=== PATIENT | male | born 1960 | race Caucasian/White ===

== ENCOUNTER 2016-05-28 10:16 | Day surgery (SDC) | payer MEDICARE, OTHER ==
[2016-05-24 15:19] VITALS: BMI 20.7
[~2016-05-28 10:16] MED LIST: LIDOCAINE 1% 20 ML VIAL (10MG/ML) FOR IV START INTRADERMA PRN
[2016-05-28 11:22] VITALS: TEMP 97.2
[2016-05-28] MEDS ORDERED: LIDOCAINE 1% 20 ML VIAL (10MG/ML) FOR IV START INTRADERMA ONE (11:33)
[2016-05-28] MEDS: LACTATED RINGERS 1,000 ML IV ONE ×2 (11:33→11:38)
[2016-05-28] MEDS ORDERED: PROPOFOL 10 MG/ML 20 ML VIAL IV ONE (11:40)
--- NOTE | 2016-05-28 12:08 | P.PCN ---
Date of Procedure: 05/28/16 Procedure(s) Performed: Procedure: Esophagogastroduodenoscopy and biopsy. Preoperative diagnosis: Dysphagia and history of esophageal stricture. Postoperative diagnosis: 1. Few white sticky exudates in the esophagus raising the possibility of brennen esophagitis. 2. No obvious stricture or any hesitation to the advancement of the endoscope into the stomach, no esophageal dilation was indicated. 3. Mild antral gastritis. Preparation and sedation: Were provided by anesthesia. Brief clinical history: The patient is a 55-year-old male with history of esophageal strictures that has required dilations in the past, was recently evaluated in the office regarding anemia with drop in hemoglobin and progressive dysphagia. His last colonoscopy was in May 2011. His last upper endoscopy and dilation was in August 2015. Procedure: With the patient on his left lateral decubitus position and after informed consent and adequate sedation, I passed the Olympus-GIF 160 video upper endoscope through the cricopharyngeus down the esophagus. GE junction was around 40-41 cm from the incisors. There was no definite stricture or any restriction to the advancement of the endoscope to the stomach. At times during the examination I noted a very small sliding hiatal hernia. The esophagus had few white sticky exudates raising the possibility of brennen esophagitis, but there were no erosions, ulcers or any evidence of reflux esophagitis. The endoscope was then passed into the stomach which was insufflated with air and inspected in detail including the retroflex view in the cardia. There was some mottling erythema and minimal friability in the antrum and immediate prepyloric area with no ulcers or erosions. Pyloric channel did not show any ulcers. Duodenal bulb, post bulbar area and descending duodenum appeared within normal limits. I obtained biopsies from the antrum as well as from the esophagus before the endoscope was withdrawn. The patient tolerated the procedure well. Plan: The patient was reassured. Will await pathology results. I would consider repeat colonoscopy if he remains anemic especially after we address the findings on this examination today and any additional information obtained from the biopsy taken today. I would keep you updated on his progress.
[2016-05-28 12:09] VITALS: RESP 18
[2016-05-28 12:38] VITALS: BP 105/67; PULSE 91
== END 2016-05-28 13:07 | disposition home or self-care (01) ==
LOC: ORWHC2ENDO 10:16
DX: B37.81 Candidal esophagitis (principal); K21.0 Gastro-esophageal reflux disease with esophagitis; K29.50 Unspecified chronic gastritis without bleeding; K44.9 Diaphragmatic hernia without obstruction or gangrene; I10 Essential (primary) hypertension; I73.9 Peripheral vascular disease, unspecified; F41.9 Anxiety disorder, unspecified; G47.33 Obstructive sleep apnea (adult) (pediatric); I48.91 Unspecified atrial fibrillation; Z86.718 Personal history of other venous thrombosis and embolism; Z79.82 Long term (current) use of aspirin; Z79.899 Other long term (current) drug therapy
CPT/HCPCS: 88305; 88312; 88342; 43239; J2704; 99153

== ENCOUNTER → 2019-05-07 | Outpatient (CLI) | payer MEDICARE, OTHER ==
[2019-05-07 14:08] LABS: HCT 46.4 % (39.0-53.0); HGB 14.9 gm/dL (13.0-17.5); MCH 31.2 pg (25.0-35.0); MCHC 32.1 g/dL (31.0-37.0); MCV 97.1 fL (80.0-100.0); Mean Platelet Volume 8.7; Platelet Count 290 k/uL (150-450); RBC 4.78 m/uL (4.30-5.90); RDW 13.5 % (11.5-15.5); WBC 8.3 k/uL (3.8-10.6)
[2019-05-07 14:22] LABS: African American GFR (CKD) >90 (>60 ml/min/1.73 sqM); Anion Gap 7 mmol/L; Blood Urea Nitrogen 12 mg/dL (9-20); Carbon Dioxide 28 mmol/L (22-30); Chloride 102 mmol/L (98-107); Glucose 69 mg/dL (74-99); Non-African American GFR(CKD) >90 (>60 ml/min/1.73 sqM); Potassium 4.4 mmol/L (3.5-5.1); Sodium 137 mmol/L (137-145)
== END | disposition home or self-care (01) ==
LOC: LABPAT 13:06
PROVIDERS: ATTEND Internal Medicine Interventional Cardiology
DX: Z01.812 Encounter for preprocedural laboratory examination (principal); R94.39 Abnormal result of other cardiovascular function study
CPT/HCPCS: 80051; 82565; 82947; 84520; 85027

== ENCOUNTER 2019-05-15 10:24 | Day surgery (SDC) | payer MEDICARE, OTHER ==
[2019-05-07 11:25] VITALS: BMI 20.7
[~2019-05-15 10:24] MED LIST changes: +ALPRAZolam 0.25 MG TAB PO PRN; +ALPRAZolam 0.5 MG TAB PO PRN; +ASPIRIN 325 MG TAB PO STA; -LIDOCAINE 1% 20 ML VIAL (10MG/ML) FOR IV START INTRADERMA PRN; +NITROGLYCERIN SL TABS 0.4 MG TAB SUBLINGUAL PRN; +SODIUM CHLORIDE 0.9% 1,000 ML in EMPTY BAG 1 BAG IV ONE
[2019-05-15] MEDS ORDERED: MIDAZOLAM 2 MG/2 ML VIAL IV ONE (13:16)
[2019-05-15] MEDS ORDERED: LIDOCAINE 1% INJ 10MG/ML (20 ML MDV) SQ ONE (13:18)
[2019-05-15] MEDS: VERAPAMIL SYRINGE (5 MG/10 ML) INTRAARTER ONE ×2 (13:19→13:44)
[2019-05-15] MEDS ORDERED: HEPARIN SODIUM 1,000 UN/ML (10ML VL) IV ONE (13:20)
[2019-05-15] MEDS ORDERED: BIVALIRUDIN BOLUS 250 MG/50 ML IV ONE ×2 (13:29)
[2019-05-15] MEDS ORDERED: BIVALIRUDIN 250 MG in SODIUM CHLORIDE 0.9% 50 ML IV ONE (13:30)
[2019-05-15] MEDS ORDERED: CLOPIDOGREL 75 MG TAB PO ONE (13:38)
[2019-05-15] MEDS ORDERED: IOPAMIDOL-370 125ML BTL INJ ONE (13:38)
[2019-05-15] MEDS ORDERED: niCARdipine Syringe (1,000 mcg/10 mL) INTRACORON ONE (13:41)
[2019-05-15] MEDS ORDERED: ALBUTEROL NEBULIZED 2.5 MG/3 ML INHALATION PRN (13:46)
[2019-05-15] MEDS ORDERED: IBUPROFEN 800 MG TAB PO PRN (13:46)
[2019-05-15] MEDS ORDERED: RX INFO: IV CONTRAST WAS GIVEN 1 EACH MISC MISCELLANE PRN (13:48)
[2019-05-15] MEDS ORDERED: MAG HYDROX/AL HYDROX/SIMETH 30 ML CUP PO PRN (13:48)
[2019-05-15] MEDS ORDERED: ATROPINE SULFATE 0.1 MG/ML 10ML SYRINGE IV PRN (13:48)
[2019-05-15] MEDS ORDERED: ZOLPIDEM 5 MG TAB PO PRN (13:48)
[2019-05-15] MEDS ORDERED: SODIUM CHLORIDE 0.9% 1,000 ML IV SCH (14:00)
--- NOTE | 2019-05-15 15:14 | AN ---
ANGIOGRAPHY REPORT CORONARY ANGIOGRAM AND PERCUTANEOUS CORONARY INTERVENTION: 05/15/2019 PERFORMING PHYSICIAN: Walker Singleton MD. PROCEDURE PERFORMED: 1. Selective right and left coronary angiogram. 2. Successful stenting of the mid right coronary artery using 4.0 x 15 mm Xience drug- eluting stent which was post dilated using 5 mm balloon with an excellent angiographic results. INDICATION: This is a 58-year-old gentleman with hypertension and dyslipidemia and history of peripheral arterial disease who was experiencing chest discomfort and underwent myocardial perfusion imaging stress test and that revealed inferior ischemia. Because of that, he was brought today to undergo a heart catheterization. APPROACH: Right radial artery. COMPLICATION: None. LEVEL OF SEDATION: Moderate with sedation length of 31 minutes. PROCEDURE DESCRIPTION: After obtaining an informed consent, the patient was brought to the cardiac laborer sawmill. The right radial artery was cannulated using micropuncture technique and a micropuncture wire passed easily, then I placed a 6-Danish sheath in the right radial artery. After that I gave the patient 2 mg of verapamil IA. I did selective right and left coronary angiogram using JR4 and JL3.5 catheters. After that, I did intervene on the right coronary artery. Please see a separate paragraph for that. SELECTIVE CORONARY ANGIOGRAM: 1. The right coronary artery is a large caliber vessel and is a dominant vessel. The mid RCA has a tight lesion appeared to be in the range of 80% to 90%. The RCA distally bifurcates into PDA and PLV branches and both appeared to be angiographically normal. 2. The left main is after the images. The left main did not the images+. The left main is angiographically normal. It bifurcates into left circumflex and left anterior descending artery. 3. The left circumflex is a medium to large caliber vessel, it is a nondominant vessel. The left circumflex has mild disease only. 4. The left anterior descending artery. The proximal LAD appeared to have mild disease only. The mid LAD has a lesion appeared to be in the range of 50% to 60%. The LAD distally appeared to be angiographically normal. 5. PCI of the RCA. Anticoagulation was initiated with Angiomax with bolus and drip. Subsequently I did engage the right coronary artery. The right coronary artery was engaged using JR4 guide. Then I did wire it using a run-through wire. I did direct stenting on the lesion using 4.0.x 15 mm drug-eluting stent, which was Xience, which was deployed under 14 atmospheres for 24 to 20 seconds, then I post-dilated the stent using 5 mm NC balloon. The following angiogram showed good angiographic results and the procedure was completed without any complication. CONCLUSION: 1. Critical disease involving the mid right coronary artery. 2. Intermediate to severe disease involving the mid LAD. 3. Successful stenting of the mid RCA as described above. POSTPROCEDURE MANAGEMENT: 1. Dual anti-platelet therapy. 2. Risk factor modifications. 3. Follow up with the patient. MMODL / IJN: [id number] /
[2019-05-15] MEDS: GABAPENTIN 300 MG CAP PO SCH ×2 (16:15→21:00)
[2019-05-15] MEDS: VARENICLINE 1 MG TAB PO SCH (21:00)
[2019-05-15] MEDS: METOPROLOL TARTRATE 25 MG TAB PO SCH (21:00)
[2019-05-15] MEDS ORDERED: ATORVASTATIN 80 MG TAB PO SCH (21:00)
[2019-05-16 04:02] VITALS: RESP 18; TEMP 98.2
[2019-05-16 07:09] LABS: Basophils % (A) 0 %; Eosinophils # (A) 0.2 k/uL (0-0.7); Eosinophils % (A) 3 %; HCT 46.2 % (39.0-53.0); HGB 14.7 gm/dL (13.0-17.5); Lymphocytes # (A) 1.9 k/uL (1.0-4.8); Lymphocytes % (A) 22 %; MCH 30.5 pg (25.0-35.0); MCHC 31.8 g/dL (31.0-37.0); MCV 95.9 fL (80.0-100.0); Mean Platelet Volume 7.6; Monocytes # (A) 0.7 k/uL (0-1.0); Monocytes % (A) 8 %; Neutrophils # (A) 5.9 k/uL (1.3-7.7); Neutrophils % (A) 66 %; Platelet Count 253 k/uL (150-450); RBC 4.82 m/uL (4.30-5.90); RDW 13.4 % (11.5-15.5); WBC 8.9 k/uL (3.8-10.6)
[2019-05-16 07:24] LABS: African American GFR (CKD) >90 (>60 ml/min/1.73 sqM); Anion Gap 4 mmol/L; Blood Urea Nitrogen 10 mg/dL (9-20); Calcium 9.6 mg/dL (8.4-10.2); Carbon Dioxide 31 mmol/L (22-30); Chloride 105 mmol/L (98-107); Glucose 82 mg/dL (74-99); Non-African American GFR(CKD) >90 (>60 ml/min/1.73 sqM); Potassium 4.4 mmol/L (3.5-5.1); Sodium 140 mmol/L (137-145)
[2019-05-16 07:44] VITALS: BP 106/79; PULSE 90
[2019-05-16] MEDS: VARENICLINE 1 MG TAB PO SCH (07:44)
[2019-05-16] MEDS: GABAPENTIN 300 MG CAP PO SCH (07:45)
[2019-05-16] MEDS: METOPROLOL TARTRATE 25 MG TAB PO SCH (07:45)
[2019-05-16] MEDS ORDERED: MULTIVITAMINS, THERA 1 EACH TAB PO SCH (09:00)
[2019-05-16] MEDS ORDERED: ISOSORBIDE MONONITRATE ER 30 MG TAB.ER.24H PO SCH (09:00)
[2019-05-16] MEDS ORDERED: PANTOPRAZOLE 40 MG TABLET PO SCH (09:00)
[2019-05-16] MEDS ORDERED: CLOPIDOGREL 75 MG TAB PO SCH (09:00)
[2019-05-16] MEDS ORDERED: ASPIRIN 81 MG PO SCH (09:00)
--- NOTE | 2019-05-16 09:11 | DS ---
DISCHARGE SUMMARY ADMISSION DATE: 05/15/2019 DISCHARGE DATE: 05/16/2019. BRIEF HISTORY: This is a 58-year-old gentleman with hypertension and dyslipidemia who was experiencing chest discomfort and he underwent a stress test as an outpatient and that revealed inferior ischemia. Because of that, he underwent a heart catheterization yesterday which revealed critical disease involving the mid RCA which is stented with an excellent angiographic results and without any complication. The patient is going to be on dual anti-platelet therapy as well as statin and I will follow up with him next week in the office. DANIA / CAYETANON: [id number] /
== END 2019-05-16 10:35 | disposition home or self-care (01) ==
LOC: CATHCVL 10:24 → 3SCARD 13:47 → CATHCVL 05-16 10:35
PROVIDERS: ATTEND Internal Medicine Interventional Cardiology
DX: I25.110 Atherosclerotic heart disease of native coronary artery with unstable angina pectoris (principal); I25.9 Chronic ischemic heart disease, unspecified; I10 Essential (primary) hypertension; E78.00 Pure hypercholesterolemia, unspecified; E78.5 Hyperlipidemia, unspecified; I73.9 Peripheral vascular disease, unspecified; F17.210 Nicotine dependence, cigarettes, uncomplicated; Z79.899 Other long term (current) drug therapy; Z79.82 Long term (current) use of aspirin; Z79.1 Long term (current) use of non-steroidal anti-inflammatories (NSAID)
CPT/HCPCS: 93454; 80048; 85025; C9600; C1887; C1725; C1769 ×2; C1874; C1894; J2250; J2001; J0583; Q9967

== ENCOUNTER → 2020-03-04 | Outpatient (CLI) | payer MEDICARE, OTHER ==
--- NOTE | 2020-03-07 11:21 | CT ---
EXAMINATION TYPE: CT chest abdomen w con DATE OF EXAM: 03/04/2020 COMPARISON: CT chest 03/31/2015. HISTORY: Abnormal weight loss. CT DLP: 665 mGycm. Automated Exposure Control for Dose Reduction was Utilized. CONTRAST: CT scan of the thorax, abdomen and pelvis is performed with IV Contrast, patient injected with 100 mL of Isovue 300. FINDINGS: LUNGS: Lungs are hyperinflated. There is severe paraseptal and centrilobular emphysematous change wit h nodular pleural thickening and likely areas of scarring. Emphysematous changes have progressed vers us 2015 comparison. There is no pulmonary mass. No pleural effusion. No pneumothorax. The tracheobron chial tree is patent. MEDIASTINUM/SOFT TISSUES: No axillary, hilar, or mediastinal lymphadenopathy greater than 1 cm. Cardi ac size is normal. No pericardial effusion. Calcified coronary artery disease. No thoracic aortic ane urysm. LIVER: There is a hepatic cyst of the left dome. BILIARY SYSTEM: Normal. PANCREAS: Normal. SPLEEN: Normal. ADRENALS: Normal. KIDNEYS: Normal. BOWEL: No obstruction or thickening of the visualized bowel loops. There is significant colonic debr is within the ascending and transverse colon. PERITONEUM: No pneumoperitoneum. No free fluid. LYMPH NODES: No lymphadenopathy. VASCULATURE: No abdominal aortic aneurysm. Moderate calcified atherosclerotic disease. MUSCULOSKELETAL: No aggressive osseous destructive lesions. Degenerative changes of the cervical and lumbosacral spine. IMPRESSION: 1. Severe emphysema. Nodular pleural thickening and scarring. No definitive lung mass. 2. Significant colonic fecal debris. Correlate clinically for constipation.
== END | disposition home or self-care (01) ==
LOC: RADCTMAIN 15:28
PROVIDERS: ATTEND Family Medicine
DX: J43.9 Emphysema, unspecified (principal); J92.9 Pleural plaque without asbestos; R91.8 Other nonspecific abnormal finding of lung field; R19.5 Other fecal abnormalities
CPT/HCPCS: 71260; 74160; Q9967 ×2

== ENCOUNTER → 2021-04-10 | Outpatient (CLI) | payer MEDICARE, OTHER ==
[2021-04-10 14:09] LABS: African American GFR (CKD) >90 (>60 ml/min/1.73 sqM); Anion Gap 8 mmol/L; Blood Urea Nitrogen 12 mg/dL (9-20); Carbon Dioxide 26 mmol/L (22-30); Chloride 101 mmol/L (98-107); Non-African American GFR(CKD) >90 (>60 ml/min/1.73 sqM); Potassium 4.3 mmol/L (3.5-5.1); Sodium 135 mmol/L (137-145)
[2021-04-10 14:11] LABS: HCT 42.7 % (39.0-53.0); HGB 14.3 gm/dL (13.0-17.5); MCH 32.5 pg (25.0-35.0); MCHC 33.6 g/dL (31.0-37.0); MCV 96.9 fL (80.0-100.0); Mean Platelet Volume 7.4; Platelet Count 277 k/uL (150-450); RDW 14.3 % (11.5-15.5); WBC 7.4 k/uL (3.8-10.6)
== END | disposition home or self-care (01) ==
LOC: LABPAT 12:01
PROVIDERS: ATTEND Internal Medicine Interventional Cardiology
DX: Z01.812 Encounter for preprocedural laboratory examination (principal); R07.9 Chest pain, unspecified
CPT/HCPCS: 36415; 80051; 82565; 84520; 85027

== ENCOUNTER 2021-04-18 10:56 | Day surgery (SDC) | payer MEDICARE, OTHER ==
[2021-04-14 11:41] VITALS: BMI 20.7
[~2021-04-18 10:56] MED LIST changes: +HEPARIN SODIUM,PORCINE 10,000 UNIT in SODIUM CHLORIDE 0.9% 1,000 ML IRRIGATION PRN; +HEPARIN SODIUM,PORCINE 2,500 UNIT in SODIUM CHLORIDE 0.9% 250 ML IRRIGATION PRN; -SODIUM CHLORIDE 0.9% 1,000 ML in EMPTY BAG 1 BAG IV ONE
[2021-04-18] MEDS ORDERED: SODIUM CHLORIDE 0.9% 1,000 ML IV ONE (11:14)
[2021-04-18] MEDS ORDERED: LIDOCAINE 1% INJ 10MG/ML (20 ML MDV) ONE (13:38)
[2021-04-18] MEDS ORDERED: HEPARIN SODIUM 1,000 UN/ML (10ML VL) ONE (13:38)
[2021-04-18] MEDS ORDERED: VERAPAMIL 2.5 MG/ML 2 ML AMP ONE (13:38)
[2021-04-18] MEDS: MIDAZOLAM 2 MG/2 ML VIAL IV ONE ×2 (13:45→14:28)
[2021-04-18] MEDS ORDERED: LIDOCAINE 1% INJ 10MG/ML (20 ML MDV) SQ ONE (13:48)
[2021-04-18] MEDS ORDERED: VERAPAMIL SYRINGE (5 MG/10 ML) INTRAARTER ONE (13:49)
[2021-04-18] MEDS ORDERED: HEPARIN SODIUM 1,000 UN/ML (10ML VL) IV ONE (13:50)
[2021-04-18] MEDS ORDERED: CLOPIDOGREL 75 MG TAB ONE (14:12)
[2021-04-18] MEDS ORDERED: PRASUGREL 10 MG TAB ONE (14:15)
[2021-04-18] MEDS ORDERED: PRASUGREL 10 MG TAB PO ONE (14:18)
[2021-04-18] MEDS ORDERED: NITROGLYCERIN 1000MCG/10ML SYRINGE INTRACORON ONE (14:22)
[2021-04-18] MEDS ORDERED: ALBUTEROL NEBULIZED 2.5 MG/3 ML INHALATION PRN (14:42)
[2021-04-18] MEDS ORDERED: IBUPROFEN 800 MG TAB PO PRN (14:42)
[2021-04-18] MEDS ORDERED: NITROGLYCERIN SL TABS 0.4 MG TAB SUBLINGUAL PRN (14:43)
[2021-04-18] MEDS ORDERED: ZOLPIDEM 5 MG TAB PO PRN (14:43)
[2021-04-18] MEDS ORDERED: ATROPINE SULFATE 0.1 MG/ML 10ML SYRINGE IV PRN (14:43)
[2021-04-18] MEDS ORDERED: MAG HYDROX/AL HYDROX/SIMETH 30 ML CUP PO PRN (14:43)
[2021-04-18] MEDS ORDERED: RX INFO: IV CONTRAST WAS GIVEN 1 EACH MISC MISCELLANE PRN (14:43)
[2021-04-18] MEDS ORDERED: SODIUM CHLORIDE 0.9% 1,000 ML IV SCH (14:45)
[2021-04-18] MEDS ORDERED: IOPAMIDOL-370 125ML BTL INJ ONE (14:45)
--- NOTE | 2021-04-18 15:14 | CC ---
CARDIAC CATHETERIZATION REPORT CARDIAC CATHETERIZATION AND PERCUTANEOUS CORONARY INTERVENTION: DATE OF SERVICE: 04/18/2021 PERFORMING PHYSICIAN: Walker Singleton M.D. PROCEDURES PERFORMED: 1. Selective right and left coronary angiogram. 2. Successful stenting of the mid left anterior descending artery using a 3.5 x 23 and a 3.5 x 12 mm Xience drug-eluting stent with excellent angiographic results and reduction of stenosis from 70% to 0%. INDICATION: This is a 60-year-old gentleman who is known to have CAD with prior stenting of the RCA and intermediate disease involving the LAD. He was experiencing symptoms of chest discomfort and shortness of breath with exertion concerning for angina. Because of that, a heart catheterization was advised. APPROACH: Right radial artery. COMPLICATIONS: None. LEVEL OF SEDATION: Moderate, with sedation length of 50 minutes. PROCEDURE DESCRIPTION: After obtaining informed consent, the patient was brought to the cardiac catheter builder. The right radial artery was cannulated using micropuncture technique. The micropuncture wire passed easily. Then I placed a 6-Croatian sheath in the right radial artery. I gave the patient 2 mg of verapamil IA and 8000 units of heparin IV. Selective right and left coronary angiogram was performed with JR4 and JL3.5 catheters. After that I did intervene on the left anterior descending artery. Please see separate paragraph for that. SELECTIVE CORONARY ANGIOGRAM: 1. The RCA is a large-caliber vessel. It is a dominant vessel. The RCA is stented in the mid portion and the stent is patent. 2. The left main is angiographically normal. It bifurcates into LCX and LAD. 3. The LCX is a large-caliber vessel. It is a nondominant vessel. The LCX is angiographically normal and gives rise to a large OM branch which appeared to be angiographically normal. 4. The LAD is a large-caliber vessel. The proximal LAD is angiographically normal. The mid LAD after the bifurcation of a large diagonal branch has a tight lesion that appeared to be in the range of 70% with 2 tandem lesions and with a calcified lesion. The LAD distally appeared to be angiographically normal. PERCUTANEOUS CORONARY INTERVENTION OF THE LEFT ANTERIOR DESCENDING ARTERY: Anticoagulation was initiated using heparin with continuous ACT monitoring throughout the procedure. After that, I did engage the left main using JL4 guiding catheter. I did wire the LAD using a run-through wire. I did direct stenting on the lesion in the LAD using 3.5 x 23 mm Xience WEI where the stent was positioned under fluoroscopic guidance and deployed under 14 atmospheres for 20 seconds. The following angiogram showed that the lesion on the proximal edge of the stent appeared to be in the range of 50%. Balloon angioplasty was performed using 3.5 and then 4.0 balloon, with no success in opening the lesion. At that point I decided to cover the lesion with a stent, so I did deploy a 3.5 x 12 mm another Xience drug-eluting stent where the stent was positioned under fluoroscopic guidance with about 2 mm overlap between the 2 stents. With that, I did deploy the stent under 14 atmospheres. The following angiogram showed that the lesion continued to be there, and because of that, I did balloon angioplasty again using a 4.0 NC balloon. The final angiogram showed excellent angiographic results and the procedure was completed without any complication. CONCLUSIONS: 1. Patent stent in the mid right coronary artery. 2. Severe disease involving the mid LAD with 2 tandem lesions. 3. Successful stenting of the mid LAD using a 3.5 x 23 and a 3.5 x 12 mm Xience drug- eluting stent with an excellent angiographic result and without any complication with MIRELLA-3 flow. POST-PROCEDURE MANAGEMENT: 1. Dual anti-platelet therapy. 2. Aggressive cholesterol control. 3. Risk factor modifications. 4. Follow up with the patient. DANIA / MARA: [id number] /
[2021-04-18] MEDS: SODIUM CHLORIDE 0.9% 1,000 ML in EMPTY BAG 1 BAG IV SCH ×2 (18:00→20:48)
[2021-04-18] MEDS: GABAPENTIN 300 MG CAP PO SCH ×2 (18:05→20:48)
[2021-04-18] MEDS: METOPROLOL TARTRATE 25 MG TAB PO SCH (20:48)
[2021-04-19 07:13] VITALS: BP 121/77; RESP 16; TEMP 97.9
[2021-04-19] MEDS: GABAPENTIN 300 MG CAP PO SCH (07:14)
[2021-04-19] MEDS: METOPROLOL TARTRATE 25 MG TAB PO SCH (07:14)
[2021-04-19] MEDS ORDERED: PANTOPRAZOLE 40 MG TABLET PO SCH (07:30)
[2021-04-19 07:31] LABS: Basophils % (A) 0 %; Eosinophils # (A) 0.3 k/uL (0-0.7); Eosinophils % (A) 3 %; HCT 48.8 % (39.0-53.0); HGB 15.2 gm/dL (13.0-17.5); Lymphocytes % (A) 20 %; MCH 31.6 pg (25.0-35.0); MCHC 31.2 g/dL (31.0-37.0); MCV 101.1 fL (80.0-100.0); Macrocytosis Slight; Mean Platelet Volume 7.4; Monocytes # (A) 0.9 k/uL (0-1.0); Monocytes % (A) 8 %; Neutrophils # (A) 6.9 k/uL (1.3-7.7); Neutrophils % (A) 67 %; Platelet Count 269 k/uL (150-450); RBC 4.82 m/uL (4.30-5.90); RDW 13.7 % (11.5-15.5); WBC 10.2 k/uL (3.8-10.6)
[2021-04-19 07:48] VITALS: PULSE 68
[2021-04-19] MEDS ORDERED: IPRATROPIUM 0.5 MG/2.5 ML NEBU INHALATION SCH (08:00)
[2021-04-19] MEDS ORDERED: FORMOTEROL FUMARATE 20 MCG/2 ML NEBU INHALATION SCH (08:00)
[2021-04-19 08:45] LABS: African American GFR (CKD) >90 (>60 ml/min/1.73 sqM); Anion Gap 7 mmol/L; Blood Urea Nitrogen 13 mg/dL (9-20); Calcium 9.7 mg/dL (8.4-10.2); Carbon Dioxide 27 mmol/L (22-30); Chloride 105 mmol/L (98-107); Glucose 83 mg/dL (74-99); Non-African American GFR(CKD) 87 (>60 ml/min/1.73 sqM); Potassium 4.4 mmol/L (3.5-5.1); Sodium 139 mmol/L (137-145)
[2021-04-19] MEDS ORDERED: PRASUGREL 10 MG TAB PO SCH (09:00)
[2021-04-19] MEDS ORDERED: ISOSORBIDE MONONITRATE ER 30 MG TAB.ER.24H PO SCH (09:00)
[2021-04-19] MEDS ORDERED: ATORVASTATIN 80 MG TAB PO SCH (09:00)
[2021-04-19] MEDS ORDERED: ASPIRIN 81 MG PO SCH (09:00)
[2021-04-19] MEDS ORDERED: MULTIVITAMINS, THERA 1 EACH TAB PO SCH (09:00)
--- NOTE | 2021-04-19 10:46 | DS ---
DISCHARGE SUMMARY DATE OF ADMISSION: 04/18/2021 DATE OF DISCHARGE: 04/19/2021 BRIEF HISTORY: This is a 60-year-old gentleman with CAD and prior stenting of the RCA who was experiencing symptoms of chest pain and shortness of breath with exertion concerning for angina. He underwent heart catheterization yesterday with successful stenting of the mid LAD. He was seen this morning. He is [id number]. He is hemodynamically stable. The right radial site is soft and nontender with a good pulse. The patient is going to be discharged home on dual anti-platelet therapy along with statin, and I will follow up with the patient in the office in a week. MMEVA / CAYETANON: [id number] /
== END 2021-04-19 09:00 | disposition home or self-care (01) ==
LOC: CATHCVL 10:56 → 6NMEDSUR 14:38 → CATHCVL 04-19 09:00
PROVIDERS: ATTEND Internal Medicine Interventional Cardiology
DX: I25.110 Atherosclerotic heart disease of native coronary artery with unstable angina pectoris (principal); I25.84 Coronary atherosclerosis due to calcified coronary lesion; I10 Essential (primary) hypertension; E78.00 Pure hypercholesterolemia, unspecified; Z20.822 Contact with and (suspected) exposure to COVID-19; Z95.5 Presence of coronary angioplasty implant and graft; E78.5 Hyperlipidemia, unspecified; Z87.891 Personal history of nicotine dependence; Z72.0 Tobacco use; I73.9 Peripheral vascular disease, unspecified; Z79.1 Long term (current) use of non-steroidal anti-inflammatories (NSAID); Z79.82 Long term (current) use of aspirin; Z79.899 Other long term (current) drug therapy
CPT/HCPCS: 94640 ×2; 93454; 80048; 85025; 87635; C9600; C1887; C1894; C1725 ×2; C1769; C1874 ×2; J2250; J2001; J1644; Q9967

== ENCOUNTER 2021-07-08 09:31 | Inpatient (IN) | payer MEDICARE, OTHER ==
[2021-07-08] MEDS ORDERED: IPRATROPIUM-ALBUTEROL 3 ML NEB INHALATION STA (09:49)
[2021-07-08] MEDS ORDERED: methylPREDNISolone SOD SUCCI 125 MG/2 ML VIAL IV STA (09:49)
--- NOTE | 2021-07-08 09:58 | ED ---
SOB HPI - General Chief Complaint: Upper Respiratory Infection Stated Complaint: AIDE Time Seen by Provider: 07/08/21 09:39 Source: patient, RN notes reviewed Mode of arrival: ambulatory Limitations: no limitations - History of Present Illness Initial Comments: This is a pleasant 60-year-old male with a history of COPD, who presents emergency Department with 3 weeks of difficulty breathing and now a sometimes productive cough. He states this is developed over the past 2 days. No known fever however he states he is coughing so hard he is actually getting lightheaded during coughing spells. He denies any chest pain. No known fever. No headache, no fever or chills, no changes in vision or hearing, no sore throat or difficulty with speech, no neck pain, no chest pain no abdominal pain, no nausea or vomiting, no changes in urination or bowel movements, no numbness or tingling, no extremity pain, no skin rashes or lesions. MD Complaint: shortness of breath, cough Onset/Timin -: week(s) - Related Data Home Medications Medication Instructions Recorded Confirmed Albuterol Sulfate [Ventolin HFA] 2 puff INHALATION RT-Q6H PRN 11/13/14 04/18/21 Metoprolol Tartrate 25 mg PO BID 07/27/15 04/18/21 Multivitamin [Men's Multi-Vitamin] 1 tab PO DAILY 08/30/15 04/18/21 Ibuprofen [Motrin] 800 mg PO Q8H PRN 03/19/16 04/14/21 Gabapentin 600 mg PO TID 03/21/16 04/18/21 Aspirin [Adult Low Dose Aspirin EC] 81 mg PO DAILY 05/07/19 04/18/21 Isosorbide Mononitrate [Isosorbide 30 mg PO DAILY 05/15/19 04/18/21 Mononitrate ER] Pantoprazole Sodium 20 mg PO DAILY 04/14/21 04/14/21 Umeclidinium Brm/Vilanterol Tr 1 puff INHALATION DAILY 04/14/21 04/18/21 [Anoro Ellipta 62.5-25 Mcg INH] Atorvastatin [Lipitor] 80 mg PO DAILY 04/18/21 04/18/21 Previous Rx's Medication Instructions Recorded Prasugrel [Effient] 10 mg PO DAILY #90 tablet 04/19/21 Allergies Allergy/AdvReac Type Severity Reaction Status Date / Time No Known Allergies Allergy Verified 07/08/21 09:36 Review of Systems ROS Statement: Those systems with pertinent positive or pertinent negative responses have been documented in the HPI. ROS Other: All systems not noted in ROS Statement are negative. Past Medical History Past Medical History: Atrial Fibrillation, COPD, Deep Vein Thrombosis (DVT), GERD/Reflux, GI Bleed, Hypertension, Osteoarthritis (OA), Pneumonia, Sleep Apnea/CPAP/BIPAP Additional Past Medical History / Comment(s): DVT- LEFT LEG, CPAP History of Any Multi-Drug Resistant Organisms: MRSA Date of last positivie culture/infection: 02/18/20 MRSA MDRO Source:: Right Axilla Past Surgical History: Orthopedic Surgery Additional Past Surgical History / Comment(s): ABD AORTOGRAM. Other SX: HAD CRUSHING INJURY TO ANKLES HAD FUSION DONE JOSE ALBERTO, LT FOOT TOE PARTIAL AMP. CHEST TUBE FOR PNEUMOTHORAX. SURGERY TO REMOVE BLOOD CLOT FROM LEG. Bronchial washings/lavage, EGD. femoral bypass Past Anesthesia/Blood Transfusion Reactions: No Reported Reaction Additional Past Anesthesia/Blood Transfusion Reaction / Comment(s): Pt states he has never received blood. Past Psychological History: Anxiety, Depression Smoking Status: Current every day smoker Past Alcohol Use History: None Reported Past Drug Use History: Marijuana - Past Family History Father Family Medical History: Coronary Artery Disease (CAD), Diabetes Mellitus, Myocardial Infarction (CT), Pulmonary Embolus Additional Family Medical History / Comment(s): PE Mother Family Medical History: CVA/TIA General Exam - General Exam Comments Initial Comments: Patient does not appear to be ill or toxic. Mild increased work of breathing with accessory muscle use. Diffuse wheezing. Does not appear to be toxic. Limitations: no limitations General appearance: alert, in no apparent distress Head exam: Present: atraumatic, normocephalic, normal inspection Eye exam: Present: normal appearance, PERRL, EOMI. Absent: scleral icterus, conjunctival injection, periorbital swelling ENT exam: Present: normal exam, normal oropharynx, mucous membranes moist, TM's normal bilaterally, normal external ear exam. Absent: mucous membranes dry Neck exam: Present: normal inspection. Absent: tenderness, meningismus, lymphadenopathy Respiratory exam: Present: respiratory distress, wheezes, accessory muscle use, decreased breath sounds, prolonged expiratory. Absent: rales, rhonchi, stridor, chest wall tenderness Cardiovascular Exam: Present: regular rate, normal rhythm, normal heart sounds. Absent: systolic murmur, diastolic murmur, rubs, gallop, clicks GI/Abdominal exam: Present: soft, normal bowel sounds. Absent: distended, tenderness, guarding, rebound, rigid Extremities exam: Present: normal inspection, full ROM, normal capillary refill. Absent: tenderness, pedal edema, joint swelling, calf tenderness Back exam: Present: normal inspection Neurological exam: Present: alert, oriented X3, CN II-XII intact Psychiatric exam: Present: normal affect, normal mood Skin exam: Present: warm, dry, intact, normal color. Absent: rash Course Vital Signs 07/08/21 07/08/21 07/08/21 09:33 09:53 11:29 Temperature 97.7 F 98.4 F Pulse Rate 85 94 89 Respiratory 22 20 Rate Blood Pressure 149/94 102/81 O2 Sat by Pulse 100 94 L Oximetry 07/08/21 11:40 Temperature Pulse Rate 87 Respiratory Rate Blood Pressure O2 Sat by Pulse Oximetry - Reevaluation(s) Reevaluation #1: 07/08/21 11:49 Medical record is reviewed Symptoms are not improved after 5 mg of albuterol and 0.5 mg of ipratropium bromide Patient remains in respiratory distress with a respiratory rate of 22. Medical Decision Making - Medical Decision Making Vision presents to symptomology consistent with COPD exacerbation. Certainly COPD with secondary pneumonia is within the differential. Other viral etiology is possible. COVID-19 possible although the patient is vaccinated and boosted. Does not appear to be consistent with congestive heart failure or cardiac ischemia. However we will order a BNP, EKG, and troponin. Case discussed in detail with Dr. Floyd, patient will be admitted to hospitalist for further treatment Ceftriaxone 1 g IV piggyback given here in the ER. Patient received 5 mg of albuterol and 0.5 mg of ipratropium bromide - Lab Data Result diagrams: 07/08/21 10:20 07/08/21 10:20 Lab Results 07/08/21 07/08/21 07/08/21 Range/Units 10:15 10:20 10:20 WBC 6.4 (3.8-10.6) k/uL RBC 4.28 L (4.30-5.90) m/uL Hgb 14.2 (13.0-17.5) gm/dL Hct 43.0 (39.0-53.0) % MCV 100.4 H (80.0-100.0) fL MCH 33.1 (25.0-35.0) pg MCHC 33.0 (31.0-37.0) g/dL RDW 13.6 (11.5-15.5) % Plt Count 204 (150-450) k/uL MPV 7.2 Neutrophils % 72 % Lymphocytes % 13 % Monocytes % 10 % Eosinophils % 1 % Basophils % 1 % Neutrophils # 4.6 (1.3-7.7) k/uL Lymphocytes # 0.8 L (1.0-4.8) k/uL Monocytes # 0.6 (0-1.0) k/uL Eosinophils # 0.1 (0-0.7) k/uL Basophils # 0.1 (0-0.2) k/uL Sodium 126 L (137-145) mmol/L Potassium 4.1 (3.5-5.1) mmol/L Chloride 96 L (98-107) mmol/L Carbon Dioxide 23 (22-30) mmol/L Anion Gap 7 mmol/L BUN 4 L (9-20) mg/dL Creatinine 0.65 L (0.66-1.25) mg/dL Est GFR (CKD-EPI)AfAm >90 (>60 ml/min/1.73 sqM) Est GFR (CKD-EPI)NonAf >90 (>60 ml/min/1.73 sqM) Glucose 109 H (74-99) mg/dL Plasma Lactic Acid Ned (0.7-2.0) mmol/L Calcium 8.7 (8.4-10.2) mg/dL Magnesium 1.8 (1.6-2.3) mg/dL Total Bilirubin 0.7 (0.2-1.3) mg/dL AST 41 (17-59) U/L ALT 28 (4-49) U/L Alkaline Phosphatase 90 (38-126) U/L Troponin I (0.000-0.034) ng/mL NT-Pro-B Natriuret Pep pg/mL Total Protein 7.2 (6.3-8.2) g/dL Albumin 4.1 (3.5-5.0) g/dL Coronavirus (PCR) Not Detected (Not Detectd) 07/08/21 07/08/21 07/08/21 Range/Units 10:20 10:20 10:20 WBC (3.8-10.6) k/uL RBC (4.30-5.90) m/uL Hgb (13.0-17.5) gm/dL Hct (39.0-53.0) % MCV (80.0-100.0) fL MCH (25.0-35.0) pg MCHC (31.0-37.0) g/dL RDW (11.5-15.5) % Plt Count (150-450) k/uL MPV Neutrophils % % Lymphocytes % % Monocytes % % Eosinophils % % Basophils % % Neutrophils # (1.3-7.7) k/uL Lymphocytes # (1.0-4.8) k/uL Monocytes # (0-1.0) k/uL Eosinophils # (0-0.7) k/uL Basophils # (0-0.2) k/uL Sodium (137-145) mmol/L Potassium (3.5-5.1) mmol/L Chloride (98-107) mmol/L Carbon Dioxide (22-30) mmol/L Anion Gap mmol/L BUN (9-20) mg/dL Creatinine (0.66-1.25) mg/dL Est GFR (CKD-EPI)AfAm (>60 ml/min/1.73 sqM) Est GFR (CKD-EPI)NonAf (>60 ml/min/1.73 sqM) Glucose (74-99) mg/dL Plasma Lactic Acid Ned 1.0 (0.7-2.0) mmol/L Calcium (8.4-10.2) mg/dL Magnesium (1.6-2.3) mg/dL Total Bilirubin (0.2-1.3) mg/dL AST (17-59) U/L ALT (4-49) U/L Alkaline Phosphatase (38-126) U/L Troponin I <0.012 (0.000-0.034) ng/mL NT-Pro-B Natriuret Pep 82 pg/mL Total Protein (6.3-8.2) g/dL Albumin (3.5-5.0) g/dL Coronavirus (PCR) (Not Detectd) - EKG Data EKG shows normal: sinus rhythm (384), axis (Normal axis), intervals (Normal intervals), QRS complexes (Normal), ST-T waves (No acute changes) Rate: normal Disposition Clinical Impression: COPD with exacerbation, Hyponatremia Disposition: ADMITTED IP TO THIS HOSP Condition: Fair Referrals: Ashlyn Toro MD [Primary Care Provider] - 1-2 days Time of Disposition: 12:27
[2021-07-08 10:47] LABS: Basophils # (A) 0.1 k/uL (0-0.2); Basophils % (A) 1 %; Eosinophils # (A) 0.1 k/uL (0-0.7); Eosinophils % (A) 1 %; HGB 14.2 gm/dL (13.0-17.5); Lymphocytes # (A) 0.8 k/uL (1.0-4.8); Lymphocytes % (A) 13 %; MCH 33.1 pg (25.0-35.0); MCV 100.4 fL (80.0-100.0); Mean Platelet Volume 7.2; Monocytes # (A) 0.6 k/uL (0-1.0); Monocytes % (A) 10 %; Neutrophils # (A) 4.6 k/uL (1.3-7.7); Neutrophils % (A) 72 %; Platelet Count 204 k/uL (150-450); RBC 4.28 m/uL (4.30-5.90); RDW 13.6 % (11.5-15.5); WBC 6.4 k/uL (3.8-10.6)
[2021-07-08 11:03] LABS: ALT 28 U/L (4-49); African American GFR (CKD) >90 (>60 ml/min/1.73 sqM); Albumin 4.1 g/dL (3.5-5.0); Anion Gap 7 mmol/L; Blood Urea Nitrogen 4 mg/dL (9-20); Calcium 8.7 mg/dL (8.4-10.2); Carbon Dioxide 23 mmol/L (22-30); Chloride 96 mmol/L (98-107); Glucose 109 mg/dL (74-99); Non-African American GFR(CKD) >90 (>60 ml/min/1.73 sqM); Sodium 126 mmol/L (137-145); Total Bilirubin 0.7 mg/dL (0.2-1.3); Total Protein 7.2 g/dL (6.3-8.2)
[2021-07-08 11:09] LABS: Magnesium 1.8 mg/dL (1.6-2.3); Potassium 4.1 mmol/L (3.5-5.1)
[2021-07-08 11:10] LABS: AST 41 U/L (17-59); Alkaline Phosphatase 90 U/L (38-126)
--- NOTE | 2021-07-08 11:18 | XR ---
EXAMINATION TYPE: XR chest 2V DATE OF EXAM: 07/08/2021 COMPARISON: Chest x-ray 06/30/2015, 05/25/2019 HISTORY: Cough and shortness of breath TECHNIQUE: Frontal and lateral views of the chest are obtained on 3 images. FINDINGS: Endotracheal tube and NG tube, right jugular central venous catheter have been removed in the interval. Prominent lung volumes suggest underlying COPD, there is flattening the hemidiaphragms and increased AP diameter chest, retrosternal airspace. No definite pneumothorax or sizable effusion. There are overlying artifacts. Aorta is dense. Patient is rotated. IMPRESSION: Emphysema.
[2021-07-08] MEDS ORDERED: ALBUTEROL NEBULIZED 2.5 MG/3 ML INHALATION STA (11:20)
[2021-07-08] MEDS ORDERED: MAGNESIUM SULFATE-D5W PMX 1 GM in DEXTROSE/WATER 1 100ML.BAG IVPB ONE ×2 (12:01→14:00)
[2021-07-08] MEDS: SODIUM CHLORIDE 0.9% 1,000 ML IV SCH ×2 (12:15→21:12)
[2021-07-08] MEDS ORDERED: ONDANSETRON 4 MG/2 ML VIAL IVP PRN (12:20)
[2021-07-08] MEDS ORDERED: NALOXONE 0.4 MG/ML 1 ML VIAL IV PRN (12:20)
[2021-07-08] MEDS ORDERED: ALBUTEROL NEBULIZED 1.25 MG/3 ML INHALATION PRN (12:25)
--- NOTE | 2021-07-08 13:37 | P.HPIM ---
History of Present Illness H&P Date: 07/08/21 Chief Complaint: Shortness of breath Patient is a 60-year-old male with a known history of COPD, paroxysmal atrial fibrillation, coronary disease with history of stent placement, history of GI bleed, osteoarthritis and obstructive sleep apnea, anxiety/depression currently everyday smoker presents to ER with worsening shortness of breath for the past 3 weeks. Patient also complaining of cough with sometimes yellowish sputum production. He denies any complaints of fever or chills. Patient was seen by his primary care physician and was given 5-day course of steroids and antibiotics which he completed about 3 weeks ago. His symptoms did not improve much and has been worsening during the last couple of days which made him to come to ER. Denies any complaints of chest pain. No leg swelling. No nausea vomiting abdominal pain or diarrhea. Denies any dysuria or hematuria. Chest x-ray on admission showed emphysematous changes. EKG showed sinus rhythm. Laboratory showed WBC 6.4 hemoglobin 14.2 MCV 100.4 and platelets 204 Sodium 126 potassium 4.1 chloride 96 bicarb is 23 BUN 14 creatinine 0.65 Liver enzymes are not elevated proBNP 82 and troponin less than 0.012 and albumin 4.1 Review of Systems Constitutional: Patient denies any fever or chills . No generalized weakness or weight loss. Abdomen: Patient denied nausea vomiting and diarrhea and abdominal pain. Cardiovascular: Patient denies any chest pain or short of breath no palpitations. Respiratory: Patient does have cough with sputum production a lowish. Shortness of breath. Neurologic: Patient denied any numbness or tingling headache. Musculoskeletal: Patient denies any complaints of joint swelling or deformity. Skin: Negative Psychiatric: Negative Endocrine: No heat or cold intolerance. No recent weight gain. Genitourinary: No dysuria or hematuria. All other 14 point ROS negative except the above Past Medical History Past Medical History: Atrial Fibrillation, COPD, Deep Vein Thrombosis (DVT), GERD/Reflux, GI Bleed, Hypertension, Osteoarthritis (OA), Pneumonia, Sleep Apnea/CPAP/BIPAP Additional Past Medical History / Comment(s): DVT- LEFT LEG, CPAP History of Any Multi-Drug Resistant Organisms: MRSA Date of last positivie culture/infection: 02/18/20 MRSA MDRO Source:: Right Axilla Past Surgical History: Heart Catheterization With Stent, Orthopedic Surgery Additional Past Surgical History / Comment(s): ABD AORTOGRAM. Other SX: HAD CRUSHING INJURY TO ANKLES HAD FUSION DONE JOSE ALBERTO, LT FOOT TOE PARTIAL AMP. CHEST TUBE FOR PNEUMOTHORAX. SURGERY TO REMOVE BLOOD CLOT FROM LEG. Bronchial washings/lavage, EGD. femoral bypass Past Anesthesia/Blood Transfusion Reactions: No Reported Reaction Additional Past Anesthesia/Blood Transfusion Reaction / Comment(s): Pt states he has never received blood. Date of Last Stent Placement:: 04/2021 Past Psychological History: Anxiety, Depression Smoking Status: Current every day smoker Past Alcohol Use History: None Reported Additional Past Alcohol Use History / Comment(s): PAST HX OF ALCHOHOL ABUSE,QUIT JUN 2015. STARTED SMOKING AT AGE 15. States he currently smokes less than 1/2 ppd Past Drug Use History: None Reported - Past Family History Father Family Medical History: Coronary Artery Disease (CAD), Diabetes Mellitus, Myocardial Infarction ([place]), Pulmonary Embolus Additional Family Medical History / Comment(s): PE Mother Family Medical History: CVA/TIA Medications and Allergies Home Medications Medication Instructions Recorded Confirmed Type Albuterol Sulfate [Ventolin HFA] 2 puff INHALATION RT-Q6H PRN 11/13/14 07/08/21 History Metoprolol Tartrate 25 mg PO DAILY 07/27/15 07/08/21 History Multivitamin [Men's Multi-Vitamin] 1 tab PO DAILY 08/30/15 07/08/21 History Gabapentin 600 mg PO TID 03/21/16 07/08/21 History Aspirin [Adult Low Dose Aspirin EC] 81 mg PO DAILY 05/07/19 07/08/21 History Pantoprazole Sodium 20 mg PO DAILY 04/14/21 07/08/21 History Umeclidinium Brm/Vilanterol Tr 1 puff INHALATION RT-DAILY 04/14/21 07/08/21 History [Anoro Ellipta 62.5-25 Mcg INH] Atorvastatin [Lipitor] 80 mg PO DAILY 04/18/21 07/08/21 History Prasugrel [Effient] 10 mg PO DAILY #90 tablet 04/19/21 07/08/21 Rx Acetaminophen Tab [Tylenol Tab] 500 mg PO Q6H PRN 07/08/21 07/08/21 History Budesonide/Formoterol Fumarate 2 puff INHALATION RT-BID 07/08/21 07/08/21 History [Symbicort 160-4.5 Mcg Inhaler] Loratadine 10 mg PO DAILY 07/08/21 07/08/21 History Allergies Allergy/AdvReac Type Severity Reaction Status Date / Time No Known Allergies Allergy Verified 07/08/21 13:10 Physical Exam Vitals: Vital Signs Temp Pulse Pulse Resp BP BP Pulse Ox 07/08/21 13:27 98.4 F 73 22 117/77 96 07/08/21 13:11 98.4 F 87 20 102/81 94 L 07/08/21 11:40 87 07/08/21 11:29 89 07/08/21 09:53 98.4 F 94 20 102/81 94 L 07/08/21 09:33 97.7 F 85 22 149/94 100 Intake and Output 07/07/21 07/08/21 07/08/21 22:59 06:59 14:59 Other: Weight 51.5 kg PHYSICAL EXAMINATION: Patient is lying in the bed comfortably, no acute distress, awake alert and oriented.. HEENT: Normocephalic. Neck is supple. Pupils reactive. Nostrils clear. Oral cavity is moist. Neck reveals no JVD, carotid bruits, or thyromegaly. CHEST EXAMINATION: Trachea is central. Symmetrical expansion. Bilateral diffuse wheezing and rhonchi.. CARDIAC: Normal S1, S2 with no gallops. No murmurs ABDOMEN: Soft. Bowel sounds normal. No organomegaly. No abdominal bruits. Extremities: reveal no edema. No clubbing or cyanosis Neurologically awake, alert, oriented x3 with well-coordinated movements. No focal deficits noted Skin: No rash or skin lesions. Psychiatric: Coperative. Nonsuicidal Musculoskeletal: No joint swelling or deformity. Normal range of motion. Results CBC & Chem 7: 07/08/21 10:20 07/08/21 10:20 Labs: Abnormal Lab Results - Last 24 Hours (Table) 07/08/21 07/08/21 Range/Units 10:20 10:20 RBC 4.28 L (4.30-5.90) m/uL MCV 100.4 H (80.0-100.0) fL Lymphocytes # 0.8 L (1.0-4.8) k/uL Sodium 126 L (137-145) mmol/L Chloride 96 L (98-107) mmol/L BUN 4 L (9-20) mg/dL Creatinine 0.65 L (0.66-1.25) mg/dL Glucose 109 H (74-99) mg/dL Thrombosis Risk Factor Assmnt - DVT/VTE Prophylaxis DVT/VTE Prophylaxis: Pharmacologic Prophylaxis ordered - Choose All That Apply Any of the Below Risk Factors Present?: Yes Each Factor Represents 1 point: Abnormal pulmonary function (COPD), Serious lung disease incl. pneumonia (< 1month) Other Risk Factors: Yes Each Risk Factor Represents 2 Points: Age 61-74 years Other congenital or acquired thrombophilia - If yes, enter type in comment: No Thrombosis Risk Factor Assessment Total Risk Factor Score: 4 Thrombosis Risk Factor Assessment Level: Moderate Risk Assessment and Plan Assessment: Acute COPD exacerbation. Failed outpatient failed outpatient treatment. Purulent acute tracheobronchitis Ongoing nicotine addiction Hypovolemic hyponatremia Coronary disease history of stent placement Paroxysmal atrial fibrillation not on any full anticoagulation History of GI bleed GERD Osteoarthritis Hypertension Type II sleep apnea on CPAP at home History of left lower extremity DVT Anxiety/depression DVT prophylaxis with heparin subcu Plan: Patient will be continued IV steroids and duo nebs and Symbicort. Gentle IV hydration with normal saline at 75 cc/h and follow-up sodium level. Continue with antibiotics and sputum cultures will be sent. Pulmonary will be consulted. Continue with home medications and follow closely. Time with Patient: Greater than 30
[2021-07-08] MEDS: PANTOPRAZOLE 40 MG/10 ML VIAL IV SCH (13:55)
[2021-07-08] MEDS: ACETAMINOPHEN TAB 325 MG TAB PO PRN (13:57)
[2021-07-08] MEDS ORDERED: PANTOPRAZOLE SODIUM 20 MG PO SCH (15:15)
[2021-07-08] MEDS: IPRATROPIUM-ALBUTEROL 3 ML NEB INHALATION SCH ×3 (15:26→23:58)
[2021-07-08] MEDS: METOPROLOL TARTRATE 25 MG TAB PO SCH (15:46)
[2021-07-08] MEDS: GABAPENTIN 300 MG CAP PO SCH ×2 (15:46→21:12)
[2021-07-08] MEDS: PRASUGREL 10 MG TAB PO SCH (15:47)
[2021-07-08 17:18] LABS: Glucose,Whole Blood 176 mg/dL (75-99)
[2021-07-08] MEDS: methylPREDNISolone SOD SUCCI 125 MG/2 ML VIAL IV SCH (17:48)
[2021-07-08] MEDS: SYMBICORT 160-4.5 MCG INHALER INHALATION SCH (20:05)
[2021-07-08 20:37] LABS: Glucose,Whole Blood 160 mg/dL (75-99)
[2021-07-08] MEDS: HEPARIN SODIUM,PORCINE/PF 5,000 UNIT/0.5 ML SYRINGE SQ SCH (21:12)
[2021-07-09] MEDS: methylPREDNISolone SOD SUCCI 125 MG/2 ML VIAL IV SCH ×5 (00:37→23:15)
[2021-07-09 03:11] LABS: Glucose,Whole Blood 141 mg/dL (75-99)
[2021-07-09] MEDS: IPRATROPIUM-ALBUTEROL 3 ML NEB INHALATION SCH ×6 (04:11→23:59)
[2021-07-09 07:18] LABS: Glucose,Whole Blood 134 mg/dL (75-99)
[2021-07-09] MEDS: SYMBICORT 160-4.5 MCG INHALER INHALATION SCH ×2 (07:57→19:52)
[2021-07-09] MEDS: HEPARIN SODIUM,PORCINE/PF 5,000 UNIT/0.5 ML SYRINGE SQ SCH ×2 (08:49→21:10)
[2021-07-09] MEDS: METOPROLOL TARTRATE 25 MG TAB PO SCH (08:49)
[2021-07-09] MEDS: PANTOPRAZOLE 40 MG/10 ML VIAL IV SCH (08:49)
[2021-07-09] MEDS: ATORVASTATIN 80 MG TAB PO SCH (08:49)
[2021-07-09] MEDS: GABAPENTIN 300 MG CAP PO SCH ×3 (08:49→21:10)
[2021-07-09] MEDS: ASPIRIN 81 MG PO SCH (08:50)
[2021-07-09] MEDS: PRASUGREL 10 MG TAB PO SCH (08:50)
[2021-07-09] MEDS: SODIUM CHLORIDE 0.9% 1,000 ML IV SCH (08:54)
[2021-07-09 09:09] LABS: Basophils # (A) 0 X 10*3/uL (0.00-0.10); Basophils % (A) 0 %; Eosinophils # (A) 0 X 10*3/uL (0.04-0.35); Eosinophils % (A) 0 %; HCT 42.8 % (39.6-50.0); HGB 13.7 g/dL (13.0-17.0); Immature Grans, Automated 0.2 %; Lymphocytes # (A) 0.62 X 10*3/uL (0.90-5.00); Lymphocytes % (A) 9.8 %; MCH 31.1 pg (27.0-32.0); MCV 97.3 fL (80.0-97.0); Mean Platelet Volume 9.8 fL (9.5-12.2); Monocytes % (A) 4.8 %; NRBC Per 100 WBC 0 /100 WBCS (0.0-0.0); Neutrophils # (A) 5.38 X 10*3/uL (1.80-7.70); Neutrophils % (A) 85.2 %; Platelet Count 222 X 10*3/uL (140-440); RDW 14.8 % (11.5-14.5); WBC 6.31 X 10*3/uL (4.50-10.00)
[2021-07-09 09:15] LABS: Anion Gap 9.8 mmol/L (10.00-18.00); BUN/Creat Ratio 12.14 Ratio (12.00-20.00); Blood Urea Nitrogen 8.5 mg/dL (9.0-27.0); Calcium 9.2 mg/dL (8.7-10.3); Carbon Dioxide 26.2 mmol/L (20.0-27.5); Non-African American GFR(CKD) 101.9 (60.0-200.0); Potassium 4.6 mmol/L (3.5-5.5)
[2021-07-09] MEDS: guaiFENesin SYRUP 100MG/5ML 200 MG/10 ML CUP PO PRN ×2 (09:34→20:03)
[2021-07-09 12:38] LABS: Glucose,Whole Blood 108 mg/dL (75-99)
--- NOTE | 2021-07-09 13:28 | P.CNPUL ---
History of Present Illness Consult date: 07/09/21 Reason for consult: dyspnea History of present illness: 60-year-old male patient with known history of COPD maintained on Anoro Ellipta on outpatient bases addition to albuterol as needed. The patient is known to have CAD and the patient has undergone stenting 2 in the LAD and has a previously stented RCA. He has had history of atrial fibrillation, obstructive sleep apnea maintained on CPAP therapy and previous history of GI bleeding. He also has a previous history of a DVT of the lower extremity. The patient was having significant dyspnea, chest that is no wheezing. He was treated with a course of prednisone burst taper on outpatient basis through his primary care physician and he did not improve and for that reason he ended up coming into the hospital. His EKG was normal. His chest x-ray showed emphysema without any acute abnormalities. Renal function stable with a creatinine of 0.6 and a BUN of 14. LFTs were normal. Troponin was at 0.012. For that reason, the patient was started on Rocephin, bronchodilators with DuoNeb, IV Solu-Medrol and the patient was hospitalized. He is feeling better she is currently on room air oxygen. No angina. No palpitations. No swelling lower extremity. No Pain or tenderness. No pleurisy. Review of Systems Constitutional: Patient denies any fever or chills . No generalized weakness or weight loss. Abdomen: Patient denied nausea vomiting and diarrhea and abdominal pain. Cardiovascular: Patient denies any chest pain or short of breath no pal pitations. Respiratory: Patient does have cough with sputum production a lowish. Shortness of breath. Neurologic: Patient denied any numbness or tingling headache. Musculoskeletal: Patient denies any complaints of joint swelling or deformity. Skin: Negative Psychiatric: Negative Endocrine: No heat or cold intolerance. No recent weight gain. Genitourinary: No dysuria or hematuria. All other 14 point ROS negative except the above Past Medical History Past Medical History: Atrial Fibrillation, Coronary Artery Disease (CAD) (stent in the LAD x2 in 04/2021), COPD, Deep Vein Thrombosis (DVT), GERD/Reflux, GI Bleed, Hypertension, Osteoarthritis (OA), Pneumonia, Sleep Apnea/CPAP/BIPAP Additional Past Medical History / Comment(s): DVT- LEFT LEG, CPAP History of Any Multi-Drug Resistant Organisms: MRSA Date of last positivie culture/infection: 02/18/20 MRSA MDRO Source:: Right Axilla Past Surgical History: Heart Catheterization With Stent, Orthopedic Surgery Additional Past Surgical History / Comment(s): ABD AORTOGRAM. Other SX: HAD CRUSHING INJURY TO ANKLES HAD FUSION DONE JOSE ALBERTO, LT FOOT TOE PARTIAL AMP. CHEST TUBE FOR PNEUMOTHORAX. SURGERY TO REMOVE BLOOD CLOT FROM LEG. Bronchial washings/lavage, EGD. femoral bypass Past Anesthesia/Blood Transfusion Reactions: No Reported Reaction Additional Past Anesthesia/Blood Transfusion Reaction / Comment(s): Pt states he has never received blood. Date of Last Stent Placement:: 04/2021 Past Psychological History: Anxiety, Depression Smoking Status: Current every day smoker Past Alcohol Use History: None Reported Additional Past Alcohol Use History / Comment(s): PAST HX OF ALCHOHOL ABUSE,QUIT JUN 2015. STARTED SMOKING AT AGE 15. States he currently smokes less than 1/2 ppd Past Drug Use History: None Reported - Past Family History Father Family Medical History: Coronary Artery Disease (CAD), Diabetes Mellitus, Myocardial Infarction ([place]), Pulmonary Embolus Additional Family Medical History / Comment(s): PE Mother Family Medical History: CVA/TIA Medications and Allergies Home Medications Medication Instructions Recorded Confirmed Type Albuterol Sulfate [Ventolin HFA] 2 puff INHALATION RT-Q6H PRN 11/13/14 07/08/21 History Metoprolol Tartrate 25 mg PO DAILY 07/27/15 07/08/21 History Multivitamin [Men's Multi-Vitamin] 1 tab PO DAILY 08/30/15 07/08/21 History Gabapentin 600 mg PO TID 03/21/16 07/08/21 History Aspirin [Adult Low Dose Aspirin EC] 81 mg PO DAILY 05/07/19 07/08/21 History Pantoprazole Sodium 20 mg PO DAILY 04/14/21 07/08/21 History Umeclidinium Brm/Vilanterol Tr 1 puff INHALATION RT-DAILY 04/14/21 07/08/21 History [Anoro Ellipta 62.5-25 Mcg INH] Atorvastatin [Lipitor] 80 mg PO DAILY 04/18/21 07/08/21 History Prasugrel [Effient] 10 mg PO DAILY #90 tablet 04/19/21 07/08/21 Rx Acetaminophen Tab [Tylenol Tab] 500 mg PO Q6H PRN 07/08/21 07/08/21 History Budesonide/Formoterol Fumarate 2 puff INHALATION RT-BID 07/08/21 07/08/21 History [Symbicort 160-4.5 Mcg Inhaler] Loratadine 10 mg PO DAILY 07/08/21 07/08/21 History Allergies Allergy/AdvReac Type Severity Reaction Status Date / Time No Known Allergies Allergy Verified 07/08/21 13:10 Physical Exam Vitals: Vital Signs Temp Pulse Pulse Resp BP BP Pulse Ox 07/09/21 12:33 98.2 F 83 26 H 103/68 96 07/09/21 11:22 89 07/09/21 11:10 87 07/09/21 08:10 103 H 07/09/21 07:57 114 H 97 07/09/21 05:00 97.8 F 86 18 111/75 97 07/09/21 00:05 82 07/08/21 23:59 81 07/08/21 21:00 98.2 F 81 18 108/63 97 07/08/21 20:20 82 07/08/21 20:07 78 07/08/21 20:00 18 07/08/21 15:37 86 07/08/21 15:26 84 07/08/21 13:27 98.4 F 73 22 117/77 96 07/08/21 13:11 98.4 F 87 20 102/81 94 L Intake and Output 07/08/21 07/09/21 07/09/21 22:59 06:59 14:59 Intake Total 450 400 Output Total 2000 Balance 450 -1600 Intake: Intake, IV Titration 450 Amount Sodium Chloride 0.9% 1, 450 000 ml @ 75 mls/hr IV . [id number] [facility] Rx#:[id number] Oral 400 Output: Urine 2000 Other: Voiding Method Toilet Toilet # Voids 2 Patient is lying in the bed comfortably, no acute distress, awake alert and oriented.. HEENT: Normocephalic. Neck is supple. Pupils reactive. Nostrils clear. Oral cavity is moist. Neck reveals no JVD, carotid bruits, or thyromegaly. CHEST EXAMINATION: Trachea is central. Symmetrical expansion. Bilateral diffuse wheezing and rhonchi.. CARDIAC: Normal S1, S2 with no gallops. No murmurs ABDOMEN: Soft. Bowel sounds normal. No organomegaly. No abdominal bruits. Extremities: reveal no edema. No clubbing or cyanosis Neurologically awake, alert, oriented x3 with well-coordinated movements. No focal deficits noted Skin: No rash or skin lesions. Psychiatric: Coperative. Nonsuicidal Musculoskeletal: No joint swelling or deformity. Normal range of motion. Results - Laboratory Findings CBC and BMP: 07/09/21 06:22 07/09/21 06:22 Abnormal lab findings: Abnormal Labs 07/08/21 07/08/21 07/08/21 10:20 10:20 17:15 RBC 4.28 L MCV 100.4 H RDW Lymphocytes # 0.8 L Eosinophils # Sodium 126 L Chloride 96 L Anion Gap BUN 4 L Creatinine 0.65 L Glucose 109 H POC Glucose (mg/dL) 176 H 07/08/21 07/09/21 07/09/21 20:28 03:06 06:22 RBC MCV 97.3 H RDW 14.8 H Lymphocytes # 0.62 L Eosinophils # 0 L Sodium Chloride Anion Gap BUN Creatinine Glucose POC Glucose (mg/dL) 160 H 141 H 07/09/21 07/09/21 07/09/21 06:22 07:16 12:37 RBC MCV RDW Lymphocytes # Eosinophils # Sodium Chloride Anion Gap 9.80 L BUN 8.5 L Creatinine Glucose 134 H POC Glucose (mg/dL) 134 H 108 H - Diagnostic Findings Chest x-ray: image reviewed Assessment and Plan Plan: 1 acute COPD exacerbation, failed outpatient treatment and the patient is hospitalized for an acute COPD exacerbation with increased dyspnea cough chest tightness and wheezing. Chest x-ray history of any acute pulmonary infiltrates. The patient has been vaccinated COVID 19 and his screening tests came back negative 2 dyspnea secondary to above 3 coronary artery disease with previous stenting of the LAD 2 and RCA and currently is free of any chest pain 4 chronic atrial fibrillation 5 remote history of DVT 6 history of GI bleed 7 smoker 8 peripheral vascular disease 9 history of alcoholism 10 history of pneumothorax Plan Agree with the current treatment. Continue bronchodilators and antibiotics. Chest x-ray was reviewed. Presentation is typical of an acute COPD exacerbation. Smoking cessation counseling was done. May need to step up his outpatient treatment to Trelegy Ellipta one inhalation a day in addition to albuterol. We'll continue to follow.
[2021-07-09 17:28] LABS: Glucose,Whole Blood 121 mg/dL (75-99)
[2021-07-09 19:31] LABS: Glucose,Whole Blood 136 mg/dL (75-99)
[2021-07-09] MEDS: ACETAMINOPHEN TAB 325 MG TAB PO PRN (21:24)
[2021-07-10 02:04] LABS: Glucose,Whole Blood 126 mg/dL (75-99)
[2021-07-10] MEDS: IPRATROPIUM-ALBUTEROL 3 ML NEB INHALATION SCH ×6 (03:14→23:42)
[2021-07-10] MEDS: methylPREDNISolone SOD SUCCI 125 MG/2 ML VIAL IV SCH ×4 (06:04→23:42)
[2021-07-10 07:07] LABS: Glucose,Whole Blood 161 mg/dL (75-99)
[2021-07-10] MEDS: METOPROLOL TARTRATE 25 MG TAB PO SCH (08:21)
[2021-07-10] MEDS: ATORVASTATIN 80 MG TAB PO SCH (08:21)
[2021-07-10] MEDS: HEPARIN SODIUM,PORCINE/PF 5,000 UNIT/0.5 ML SYRINGE SQ SCH ×2 (08:21→20:58)
[2021-07-10] MEDS: GABAPENTIN 300 MG CAP PO SCH ×3 (08:21→20:58)
[2021-07-10] MEDS: ASPIRIN 81 MG PO SCH (08:21)
[2021-07-10] MEDS: PRASUGREL 10 MG TAB PO SCH (08:22)
[2021-07-10] MEDS: PANTOPRAZOLE 40 MG TABLET PO SCH (08:22)
[2021-07-10] MEDS: guaiFENesin SYRUP 100MG/5ML 200 MG/10 ML CUP PO PRN (08:25)
[2021-07-10] MEDS: SYMBICORT 160-4.5 MCG INHALER INHALATION SCH ×2 (08:33→19:25)
[2021-07-10 09:57] LABS: Basophils # (A) 0.01 X 10*3/uL (0.00-0.10); Basophils % (A) 0.1 %; Eosinophils # (A) 0 X 10*3/uL (0.04-0.35); Eosinophils % (A) 0 %; HCT 43.1 % (39.6-50.0); HGB 13.8 g/dL (13.0-17.0); Immature Grans, Automated 0.6 %; Lymphocytes # (A) 0.88 X 10*3/uL (0.90-5.00); Lymphocytes % (A) 5.4 %; MCH 31.4 pg (27.0-32.0); Mean Platelet Volume 10.1 fL (9.5-12.2); Monocytes # (A) 0.76 X 10*3/uL (0.20-1.00); Monocytes % (A) 4.6 %; NRBC Per 100 WBC 0 /100 WBCS (0.0-0.0); Neutrophils # (A) 14.65 X 10*3/uL (1.80-7.70); Neutrophils % (A) 89.3 %; Platelet Count 232 X 10*3/uL (140-440); RDW 14.8 % (11.5-14.5)
[2021-07-10 10:10] LABS: Blood Urea Nitrogen 11.2 mg/dL (9.0-27.0); Calcium 9.4 mg/dL (8.7-10.3); Non-African American GFR(CKD) 101.9 (60.0-200.0); Potassium 4.9 mmol/L (3.5-5.5)
[2021-07-10 11:43] VITALS: BMI 21.3
[2021-07-10 12:29] LABS: Glucose,Whole Blood 93 mg/dL (75-99)
--- NOTE | 2021-07-10 14:07 | P.PN ---
Subjective Progress Note Date: 07/10/21 07/10/2021, the patient is feeling slightly less short of breath compared to yesterday. No significant cough. No sputum production. The chest remains congested. He was Hospital as yesterday for an acute COPD exacerbation. He was also seen in consultation. He was started on Ventolin about treatments around the clock, he is also on Symbicort as maintenance regarding his COPD. He is also on IV Solu Medrol 60 mg every 6 hours. He was given IV Rocephin as an empiric antibiotic coverage. He takes an Anoro Ellipta in combination with Symbicort outpatient basis as maintenance regarding COPD. The blood work from today shows a white second of 16.4 with a hemoglobin 13.8. Electrodes are all within normal limits. Blood sugars nonelevated. Objective - Vital Signs Vital signs: Vital Signs Temp 97.7 F 07/10/21 05:00 Pulse 84 07/10/21 12:19 Resp 18 07/10/21 05:00 BP 110/71 07/10/21 05:00 Pulse Ox 95 07/10/21 05:00 Intake & Output 07/09/21 07/10/21 07/10/21 18:59 06:59 18:59 Intake Total 300 20 Output Total 600 Balance -300 20 Weight 67.5 kg Intake: Intake, IV Titration 300 20 Amount Sodium Chloride 0.9% 1, 300 20 000 ml @ 75 mls/hr IV . [id number] [facility] Rx#:[id number] Output: Urine 600 Other: Voiding Method Toilet Toilet Toilet Urinal Urinal - Exam Patient is lying in the bed comfortably, no acute distress, awake alert and oriented.. HEENT: Normocephalic. Neck is supple. Pupils reactive. Nostrils clear. Oral cavity is moist. Neck reveals no JVD, carotid bruits, or thyromegaly. CHEST EXAMINATION: Trachea is central. Symmetrical expansion. Bilateral diffuse wheezing and rhonchi.. CARDIAC: Normal S1, S2 with no gallops. No murmurs ABDOMEN: Soft. Bowel sounds normal. No organomegaly. No abdominal bruits. Extremities: reveal no edema. No clubbing or cyanosis Neurologically awake, alert, oriented x3 with well-coordinated movements. No focal deficits noted Skin: No rash or skin lesions. Psychiatric: Coperative. Nonsuicidal Musculoskeletal: No joint swelling or deformity. Normal range of motion. - Labs CBC & Chem 7: 07/10/21 05:59 07/10/21 05:59 Labs: Abnormal Lab Results - Last 24 Hours (Table) 07/09/21 07/09/21 07/10/21 Range/Units 17:27 19:30 02:03 WBC (4.50-10.00) X 10*3/uL MCV (80.0-97.0) fL RDW (11.5-14.5) % Immature Gran # (0.00-0.04) X 10*3/uL Neutrophils # (1.80-7.70) X 10*3/uL Lymphocytes # (0.90-5.00) X 10*3/uL Eosinophils # (0.04-0.35) X 10*3/uL Carbon Dioxide (20.0-27.5) mmol/L Glucose (70-110) mg/dL POC Glucose (mg/dL) 121 H 136 H 126 H (75-99) mg/dL 07/10/21 07/10/21 07/10/21 Range/Units 05:59 05:59 07:05 WBC 16.40 H (4.50-10.00) X 10*3/uL MCV 98.0 H (80.0-97.0) fL RDW 14.8 H (11.5-14.5) % Immature Gran # 0.10 H (0.00-0.04) X 10*3/uL Neutrophils # 14.65 H (1.80-7.70) X 10*3/uL Lymphocytes # 0.88 L (0.90-5.00) X 10*3/uL Eosinophils # 0 L (0.04-0.35) X 10*3/uL Carbon Dioxide 29.0 H (20.0-27.5) mmol/L Glucose 123 H (70-110) mg/dL POC Glucose (mg/dL) 161 H (75-99) mg/dL Microbiology - Last 24 Hours (Table) 07/08/21 10:30 Blood Culture - Preliminary Blood No Growth after 48 hours 07/08/21 10:20 Blood Culture - Preliminary Blood No Growth after 48 hours 07/08/21 20:20 Gram Stain - Preliminary Sputum Sputum Culture - Preliminary Assessment and Plan Plan: 1 acute COPD exacerbation, failed outpatient treatment and the patient is hospitalized for an acute COPD exacerbation with increased dyspnea cough chest tightness and wheezing. Chest x-ray history of any acute pulmonary infiltrates. The patient has been vaccinated COVID 19 and his screening tests came back negative, and the patient is clinically improving with a combination of bronchodilators and steroids. 2 dyspnea secondary to above 3 coronary artery disease with previous stenting of the LAD 2 and RCA and currently is free of any chest pain 4 chronic atrial fibrillation 5 remote history of DVT 6 history of GI bleed 7 smoker 8 peripheral vascular disease 9 history of alcoholism 10 history of pneumothorax Plan Clinically improving Continue the current treatment Continue bronchodilators and antibiotics. Chest x-ray was reviewed. Smoking cessation counseling was done. May need to step up his outpatient treatment to Trelegy Ellipta one inhalation a day in addition to albuterol. We'll continue to follow.
[2021-07-10 17:40] LABS: Glucose,Whole Blood 118 mg/dL (75-99)
[2021-07-10 20:01] LABS: Glucose,Whole Blood 154 mg/dL (75-99)
[2021-07-10] MEDS: ACETAMINOPHEN TAB 325 MG TAB PO PRN (20:58)
[2021-07-10] MEDS: MELATONIN 3 MG TABLET PO PRN (20:58)
--- NOTE | 2021-07-10 22:55 | P.PN ---
Subjective Progress Note Date: 07/10/21 Patient is a 60-year-old male with a known history of COPD, paroxysmal atrial fibrillation, coronary disease with history of stent placement, history of GI bleed, osteoarthritis and obstructive sleep apnea, anxiety/depression currently everyday smoker presents to ER with worsening shortness of breath for the past 3 weeks. Patient also complaining of cough with sometimes yellowish sputum production. He denies any complaints of fever or chills. Patient was seen by his primary care physician and was given 5-day course of steroids and antibiotics which he completed about 3 weeks ago. His symptoms did not improve much and has been worsening during the last couple of days which made him to come to ER. Denies any complaints of chest pain. No leg swelling. No nausea vomiting abdominal pain or diarrhea. Denies any dysuria or hematuria. Chest x-ray on admission showed emphysematous changes. EKG showed sinus rhythm. Laboratory showed WBC 6.4 hemoglobin 14.2 MCV 100.4 and platelets 204 Sodium 126 potassium 4.1 chloride 96 bicarb is 23 BUN 14 creatinine 0.65 Liver enzymes are not elevated proBNP 82 and troponin less than 0.012 and albumin 4.1 07/10/2021 Patient is seen and evaluated this morning and is being closely monitored. Pulmonary following and patient is maintained on breathing inhalational treatments along with IV steroids and will continue. Patient to continue with IV ceftriaxone as well. Patient is currently on 3L via NC and discussed with nursing staff about weaning FI02 as tolerated. Patient does not wear oxygen on a normal basis. Hyponatremia has improved. Patient denies chest pain or palpitations. Patient is afebrile. Review of systems: Constitutional: No reports of fatigue, no reports of fever, or chills Cardiovascular: No reports of chest pain or palpitations Respiratory: No reports of worsening shortness of breath,continues to be short of breath and coughing GI: No reports of nausea, no reports of vomiting : No reports of dysuria or retention Neurovascular:no reports of generalized weakness All medications have been reviewed Active Medications Acetaminophen (Acetaminophen Tab 325 Mg Tab) 650 mg PO Q6HR PRN PRN Reason: Mild Pain or Fever > 100.5 Last Admin: 07/10/21 20:58 Dose: 650 mg Documented by: Albuterol Sulfate (Albuterol Nebulized 1.25 Mg/3 Ml) 2.5 mg INHALATION RT-Q2H PRN PRN Reason: Wheezing Albuterol/Ipratropium (Ipratropium-Albuterol 3 Ml Neb) 3 ml INHALATION RT-Q4H [facility] Last Admin: 07/10/21 19:25 Dose: 3 ml Documented by: Aspirin (Aspirin 81 Mg) 81 mg PO DAILY [facility] Last Admin: 07/10/21 08:21 Dose: 81 mg Documented by: Atorvastatin Calcium (Atorvastatin 80 Mg Tab) 80 mg PO DAILY [facility] Last Admin: 07/10/21 08:21 Dose: 80 mg Documented by: Budesonide/Formoterol Fumarate (Symbicort 160-4.5 Mcg Inhaler) 2 puff INHALATION RT-BID [facility] Last Admin: 07/10/21 19:25 Dose: 2 puff Documented by: Gabapentin (Gabapentin 300 Mg Cap) 600 mg PO TID [facility] Last Admin: 07/10/21 20:58 Dose: 600 mg Documented by: Guaifenesin (Guaifenesin Syrup 100mg/5ml 200 Mg/10 Ml Cup) 200 mg PO Q6HR PRN PRN Reason: Cough Last Admin: 07/10/21 08:25 Dose: 200 mg Documented by: Heparin Sodium (Porcine) (Heparin Sodium,Porcine/Pf 5,000 Unit/0.5 Ml Syringe) 5,000 unit SQ Q12HR [facility] Last Admin: 07/10/21 20:58 Dose: 5,000 unit Documented by: Ceftriaxone Sodium 1 gm/ (Sodium Chloride) 50 mls @ 100 mls/hr IVPB Q24HR [facility]; Protocol Last Admin: 07/10/21 08:21 Dose: 100 mls/hr Documented by: Melatonin (Melatonin 3 Mg Tablet) 3 mg PO HS PRN PRN Reason: Insomnia Last Admin: 07/10/21 20:58 Dose: 3 mg Documented by: Methylprednisolone Sodium Succinate (Methylprednisolone Sod Succi 125 Mg/2 Ml Vial) 60 mg IV Q6HR [facility] Last Admin: 07/10/21 17:37 Dose: 60 mg Documented by: Metoprolol Tartrate (Metoprolol Tartrate 25 Mg Tab) 25 mg PO DAILY [facility] Last Admin: 07/10/21 08:21 Dose: 25 mg Documented by: Naloxone HCl (Naloxone 0.4 Mg/Ml 1 Ml Vial) 0.2 mg IV Q2M PRN PRN Reason: Opioid Reversal Ondansetron HCl (Ondansetron 4 Mg/2 Ml Vial) 4 mg IVP Q8HR PRN PRN Reason: Nausea And Vomiting Pantoprazole Sodium (Pantoprazole 40 Mg Tablet) 40 mg PO AC-BRKFST [facility] Last Admin: 07/10/21 08:22 Dose: 40 mg Documented by: Prasugrel (Prasugrel 10 Mg Tab) 10 mg PO DAILY [facility] Last Admin: 07/10/21 08:22 Dose: 10 mg Documented by: PHYSICAL EXAMINATION: GENERAL: The patient is alert and oriented x3 , well developed, well nourished HEENT: Pupils are round and equally reacting to light. EOMI. no scleral icterus. No conjunctival pallor. Normocephalic, atraumatic. No pharyngeal erythema. No thyromegaly. CARDIOVASCULAR: S1 and S2 muffled PULMONARY: diminished breath sounds bilaterally with some mild scattered rhonchi and expiratory wheezing noted. ABDOMEN: soft. non-tender on exam. thin. non-distended, normoactive bowel sounds. No palpable organomegaly. MUSCULOSKELETAL: No joint swelling or deformity. EXTREMITIES: No cyanosis, clubbing, or pedal edema. NEUROLOGICAL: no focal deficits noted. SKIN: No rashes. no lesions noted Assessment: Acute COPD exacerbation. Failed outpatient failed outpatient treatment. Purulent acute tracheobronchitis Ongoing nicotine addiction Hypovolemic hyponatremia, improved Coronary disease history of stent placement Paroxysmal atrial fibrillation not on any full anticoagulation History of GI bleed GERD Osteoarthritis Hypertension Type II sleep apnea on CPAP at home History of left lower extremity DVT Anxiety/depression DVT prophylaxis with heparin subcu Plan: Patient will be continued IV steroids and duo nebs and Symbicort. Patient was maintained on IV hydration and sodium improved and will discontinue. Pulmonary following and patient continues to be short of breath and on 3L via NC. Patient does not wear oxygen in the outpatient setting. Will continue with ceftriaxone. Sputum culture is pending. Encouraged increased activity as tolerated. Encouraged oral intake. Continue with home medications and follow closely. Objective - Vital Signs Vital signs: Vital Signs Temp 97.7 F 07/10/21 05:00 Pulse 82 07/10/21 08:49 Resp 18 07/10/21 05:00 BP 110/71 07/10/21 05:00 Pulse Ox 95 07/10/21 05:00 Intake & Output 07/09/21 07/10/21 07/10/21 18:59 06:59 18:59 Intake Total 300 20 Output Total 600 Balance -300 20 Intake: Intake, IV Titration 300 20 Amount Sodium Chloride 0.9% 1, 300 20 000 ml @ 75 mls/hr IV . [id number] [facility] Rx#:[id number] Output: Urine 600 Other: Voiding Method Toilet Toilet Urinal - Labs CBC & Chem 7: 07/10/21 05:59 07/10/21 05:59 Labs: Abnormal Lab Results - Last 24 Hours (Table) 07/09/21 07/09/21 07/09/21 Range/Units 12:37 17:27 19:30 POC Glucose (mg/dL) 108 H 121 H 136 H (75-99) mg/dL 07/10/21 07/10/21 Range/Units 02:03 07:05 POC Glucose (mg/dL) 126 H 161 H (75-99) mg/dL Microbiology - Last 24 Hours (Table) 07/08/21 20:20 Gram Stain - Preliminary Sputum Sputum Culture - Preliminary 07/08/21 10:20 Blood Culture - Preliminary Blood No Growth after 24 hours 07/08/21 10:30 Blood Culture - Preliminary Blood No Growth after 24 hours
[2021-07-11] MEDS: IPRATROPIUM-ALBUTEROL 3 ML NEB INHALATION SCH ×6 (03:26→23:01)
[2021-07-11] MEDS: methylPREDNISolone SOD SUCCI 125 MG/2 ML VIAL IV SCH ×4 (05:34→23:40)
[2021-07-11 07:30] LABS: Glucose,Whole Blood 121 mg/dL (75-99)
[2021-07-11] MEDS: SYMBICORT 160-4.5 MCG INHALER INHALATION SCH ×2 (08:17→19:48)
[2021-07-11] MEDS: ATORVASTATIN 80 MG TAB PO SCH (08:22)
[2021-07-11] MEDS: ASPIRIN 81 MG PO SCH (08:22)
[2021-07-11] MEDS: PANTOPRAZOLE 40 MG TABLET PO SCH (08:22)
[2021-07-11] MEDS: METOPROLOL TARTRATE 25 MG TAB PO SCH (08:23)
[2021-07-11] MEDS: PRASUGREL 10 MG TAB PO SCH (08:23)
[2021-07-11] MEDS: HEPARIN SODIUM,PORCINE/PF 5,000 UNIT/0.5 ML SYRINGE SQ SCH ×2 (08:23→21:12)
[2021-07-11] MEDS: GABAPENTIN 300 MG CAP PO SCH ×3 (08:23→21:12)
--- NOTE | 2021-07-11 10:42 | P.PN ---
Subjective Progress Note Date: 07/09/21 Patient is a 60-year-old male with a known history of COPD, paroxysmal atrial fibrillation, coronary disease with history of stent placement, history of GI bleed, osteoarthritis and obstructive sleep apnea, anxiety/depression currently everyday smoker presents to ER with worsening shortness of breath for the past 3 weeks. Patient also complaining of cough with sometimes yellowish sputum production. He denies any complaints of fever or chills. Patient was seen by his primary care physician and was given 5-day course of steroids and antibiotics which he completed about 3 weeks ago. His symptoms did not improve much and has been worsening during the last couple of days which made him to come to ER. Denies any complaints of chest pain. No leg swelling. No nausea vomiting abdominal pain or diarrhea. Denies any dysuria or hematuria. Chest x-ray on admission showed emphysematous changes. EKG showed sinus rhythm. Laboratory showed WBC 6.4 hemoglobin 14.2 MCV 100.4 and platelets 204 Sodium 126 potassium 4.1 chloride 96 bicarb is 23 BUN 14 creatinine 0.65 Liver enzymes are not elevated proBNP 82 and troponin less than 0.012 and albumin 4.1 07/09/2021 Patient is currently lying in the bed awake alert but anxious. Still having bilateral diffuse wheezing and rhonchi. Air entry improved compared to yesterday. Patient has been afebrile. Requiring oxygen at 2 to 3 L via nasal cannula. Patient is being current on IV steroids, duo nebs and antibiotics in the form of ceftriaxone. Pulmonary is on board. Patient has been afebrile. Sputum cultures pending. No nausea vomiting abdominal pain or diarrhea. No complaints of chest pain. Laboratory data showed WBC 6.3 hemoglobin 13.7 and platelets 222 Sodium 137 potassium 4.6 chloride 101 BUN 98.5 and creatinine 0.7 Current medications reviewed.. Objective - Vital Signs Vital signs: Vital Signs Temp 98.2 F 07/09/21 12:33 Pulse 80 07/09/21 15:49 Resp 26 H 07/09/21 12:33 BP 103/68 07/09/21 12:33 Pulse Ox 98 07/09/21 15:42 Intake & Output 07/08/21 07/09/21 07/09/21 18:59 06:59 18:59 Intake Total 450 400 Output Total 2000 Balance 450 -1600 Weight 51.5 kg Intake: Intake, IV Titration 450 Amount Sodium Chloride 0.9% 1, 450 000 ml @ 75 mls/hr IV . [id number] [facility] Rx#:[id number] Oral 400 Output: Urine 2000 Other: Voiding Method Toilet Toilet Toilet # Voids 2 - Exam PHYSICAL EXAMINATION: Patient is lying in the bed comfortably, no acute distress, awake alert and oriented.. HEENT: Normocephalic. Neck is supple. Pupils reactive. Nostrils clear. Oral cavity is moist. Neck reveals no JVD, carotid bruits, or thyromegaly. CHEST EXAMINATION: Trachea is central. Symmetrical expansion. Bilateral diffuse wheezing and rhonchi.. CARDIAC: Normal S1, S2 with no gallops. No murmurs ABDOMEN: Soft. Bowel sounds normal. No organomegaly. No abdominal bruits. Extremities: reveal no edema. No clubbing or cyanosis Neurologically awake, alert, oriented x3 with well-coordinated movements. No focal deficits noted Skin: No rash or skin lesions. Psychiatric: Coperative. Nonsuicidal Musculoskeletal: No joint swelling or deformity. Normal range of motion. - Labs CBC & Chem 7: 07/10/21 05:59 07/10/21 05:59 Labs: Abnormal Lab Results - Last 24 Hours (Table) 07/08/21 07/08/21 07/09/21 Range/Units 17:15 20:28 03:06 MCV (80.0-97.0) fL RDW (11.5-14.5) % Lymphocytes # (0.90-5.00) X 10*3/uL Eosinophils # (0.04-0.35) X 10*3/uL Anion Gap (10.00-18.00) mmol/L BUN (9.0-27.0) mg/dL Glucose (70-110) mg/dL POC Glucose (mg/dL) 176 H 160 H 141 H (75-99) mg/dL 07/09/21 07/09/21 07/09/21 Range/Units 06:22 06:22 07:16 MCV 97.3 H (80.0-97.0) fL RDW 14.8 H (11.5-14.5) % Lymphocytes # 0.62 L (0.90-5.00) X 10*3/uL Eosinophils # 0 L (0.04-0.35) X 10*3/uL Anion Gap 9.80 L (10.00-18.00) mmol/L BUN 8.5 L (9.0-27.0) mg/dL Glucose 134 H (70-110) mg/dL POC Glucose (mg/dL) 134 H (75-99) mg/dL 07/09/21 Range/Units 12:37 MCV (80.0-97.0) fL RDW (11.5-14.5) % Lymphocytes # (0.90-5.00) X 10*3/uL Eosinophils # (0.04-0.35) X 10*3/uL Anion Gap (10.00-18.00) mmol/L BUN (9.0-27.0) mg/dL Glucose (70-110) mg/dL POC Glucose (mg/dL) 108 H (75-99) mg/dL Microbiology - Last 24 Hours (Table) 07/08/21 20:20 Sputum Culture - Preliminary Sputum 07/08/21 10:20 Blood Culture - Preliminary Blood No Growth after 24 hours 07/08/21 10:30 Blood Culture - Preliminary Blood No Growth after 24 hours Assessment and Plan Assessment: Acute COPD exacerbation. Failed outpatient failed outpatient treatment. Purulent acute tracheobronchitis Ongoing nicotine addiction Hypovolemic hyponatremiam, improved. Coronary disease history of stent placement Paroxysmal atrial fibrillation not on any full anticoagulation History of GI bleed GERD Osteoarthritis Hypertension Type II sleep apnea on CPAP at home History of left lower extremity DVT Anxiety/depression DVT prophylaxis with heparin subcu Plan: Patient will be continued on oxygen supplementation. Continue with IV steroids and duo nebs and antibiotics in the form of ceftriaxone. IV fluids will be discontinued. Sodium is normalized. Patient is tolerating oral diet. Continue to follow closely. . Time with Patient: Greater than 30
--- NOTE | 2021-07-11 11:29 | P.PN ---
<Betsy Mccormick M - Last Filed: 07/11/21 11:23> Subjective Progress Note Date: 07/11/21 Principal diagnosis: Shortness of breath 07/10/2021, the patient is feeling slightly less short of breath compared to yesterday. No significant cough. No sputum production. The chest remains congested. He was Hospital as yesterday for an acute COPD exacerbation. He was also seen in consultation. He was started on Ventolin about treatments around the clock, he is also on Symbicort as maintenance regarding his COPD. He is also on IV Solu Medrol 60 mg every 6 hours. He was given IV Rocephin as an empiric antibiotic coverage. He takes an Anoro Ellipta in combination with Symbicort outpatient basis as maintenance regarding COPD. The blood work from today shows a white second of 16.4 with a hemoglobin 13.8. Electrodes are all within normal limits. Blood sugars nonelevated. On 07/11/2021 patient seen in follow-up. Patient states he is feeling better, he remains on 2 L of oxygen his pulse ox is 94%, he remains on Solu-Medrol, Rocephin, nebulized bronchodilators, lung sounds are positive for prolonged expiratory phase, wheezing. But overall improved. He is coughing up some clear -colored phlegm. No fever or chills. Short of breath with exertion, but has been able to ambulate to the bathroom Objective - Vital Signs Vital signs: Vital Signs Temp 97.7 F 07/11/21 05:00 Pulse 90 07/11/21 08:28 Resp 16 07/11/21 08:28 BP 127/76 07/11/21 08:20 Pulse Ox 94 L 07/11/21 08:20 Intake & Output 07/10/21 07/11/21 07/11/21 18:59 06:59 18:59 Weight 67.5 kg Other: Voiding Method Toilet Toilet Urinal Urinal # Voids 3 3 - Exam GENERAL EXAM: Alert, very pleasant, 59 white male, on 2 L of oxygen pulse ox of 94%, comfortable in no apparent distress. HEAD: Normocephalic/atraumatic. EYES: Normal reaction of pupils, equal size. Conjunctiva pink, sclera white. NOSE: Clear with pink turbinates. THROAT: No erythema or exudates. NECK: No masses, no JVD, no thyroid enlargement, no adenopathy. CHEST: No chest wall deformity. Symmetrical expansion. LUNGS: Equal air entry with expiratory wheezing, prolonged expiratory phase CVS: Regular rate and rhythm, normal S1 and S2, no gallops, no murmurs, no rubs ABDOMEN: Soft, nontender. No hepatosplenomegaly, normal bowel sounds, no guarding or rigidity. EXTREMITIES: No clubbing, no edema, no cyanosis, 2+ pulses and upper and lower extremities. MUSCULOSKELETAL: Muscle strength and tone normal. SPINE: No scoliosis or deformity SKIN: No rashes CENTRAL NERVOUS SYSTEM: Alert and oriented -3. No focal deficits, tone is normal in all 4 extremities. PSYCHIATRIC: Alert and oriented -3. Appropriate affect. Intact judgment and insight. - Labs CBC & Chem 7: 07/10/21 05:59 07/10/21 05:59 Labs: Abnormal Lab Results - Last 24 Hours (Table) 07/10/21 07/10/21 07/11/21 Range/Units 17:38 19:59 07:28 POC Glucose (mg/dL) 118 H 154 H 121 H (75-99) mg/dL Microbiology - Last 24 Hours (Table) 07/08/21 20:20 Gram Stain - Final Sputum Sputum Culture - Final 07/08/21 10:30 Blood Culture - Preliminary Blood No Growth after 48 hours 07/08/21 10:20 Blood Culture - Preliminary Blood No Growth after 48 hours Assessment and Plan Plan: Assessment: #1. Acute exacerbation of COPD with failed outpatient treatment, increased dyspnea, cough, chest tightness and wheezing. Chest x-ray showed emphysema without acute pulmonary infiltrates. Patient is status post complete a the 19th vaccination, and COVID-19 patient was negative #2. Dyspnea and wheezing relates the above #3. Coronary artery disease with previous stenting of the LAD 2 and RCA #4. Chronic atrial fibrillation #5. Remote history of DVT #6. History of GI bleeding #7. Current smoker, currently down to 5 cigarettes a day #8. Peripheral vascular disease #9. History of alcoholism #10. History of pneumothorax Plan: Patient is improving Still dyspneic with exertion and bronchospastic But breathing easier Continue IV steroids and antibiotics Continue nebulized bronchodilators Patient was offered a nicotine patch but he states he does not want one We'll continue to follow his progress I performed a history & physical examination of the patient and discussed their management with my nurse practitioner, Betsy Mccormick. I reviewed the nurse practitioner's note and agree with the documented findings and plan of care. Lung sounds are positive for diffuse wheezes throughout the lung blanca. The findings and the impression was discussed with the patient. I attest to the documentation by the nurse practitioner. I have personally seen and examined the patient, performed the documentation and the assessment and plan as written. Number of minutes spent on the visit: [10] Time with Patient: Less than 30 <Jass Nelson - Last Filed: 07/11/21 18:10> Objective - Vital Signs Vital signs: Vital Signs Temp 98.3 F 07/11/21 11:40 Pulse 80 07/11/21 16:03 Resp 18 07/11/21 16:03 BP 138/84 07/11/21 11:40 Pulse Ox 96 07/11/21 15:53 Intake & Output 07/10/21 07/11/21 07/11/21 18:59 06:59 18:59 Weight 67.5 kg Other: Voiding Method Toilet Toilet Toilet Urinal Urinal Urinal # Voids 3 3 - Labs CBC & Chem 7: 07/10/21 05:59 07/10/21 05:59 Labs: Abnormal Lab Results - Last 24 Hours (Table) 07/10/21 07/11/21 07/11/21 Range/Units 19:59 07:28 17:50 POC Glucose (mg/dL) 154 H 121 H 141 H (75-99) mg/dL Microbiology - Last 24 Hours (Table) 07/08/21 10:20 Blood Culture - Preliminary Blood No Growth after 72 hours 07/08/21 10:30 Blood Culture - Preliminary Blood No Growth after 72 hours 07/08/21 20:20 Gram Stain - Final Sputum Sputum Culture - Final Assessment and Plan Plan: I have personally seen and examined the patient and reviewed the documentation. I performed a joint evaluation with the nurse practitioner in this evaluation was done more than 20 minutes. I fully agree with the documentation above and the plan of care.
[2021-07-11 12:06] LABS: Glucose,Whole Blood 97 mg/dL (75-99)
[2021-07-11 17:53] LABS: Glucose,Whole Blood 141 mg/dL (75-99)
[2021-07-11 20:40] LABS: Glucose,Whole Blood 115 mg/dL (75-99)
[2021-07-11] MEDS: ACETAMINOPHEN TAB 325 MG TAB PO PRN (21:12)
[2021-07-11] MEDS: MELATONIN 3 MG TABLET PO PRN (21:12)
--- NOTE | 2021-07-11 23:49 | P.PN ---
Subjective Progress Note Date: 07/11/21 Patient is a 60-year-old male with a known history of COPD, paroxysmal atrial fibrillation, coronary disease with history of stent placement, history of GI bleed, osteoarthritis and obstructive sleep apnea, anxiety/depression currently everyday smoker presents to ER with worsening shortness of breath for the past 3 weeks. Patient also complaining of cough with sometimes yellowish sputum production. He denies any complaints of fever or chills. Patient was seen by his primary care physician and was given 5-day course of steroids and antibiotics which he completed about 3 weeks ago. His symptoms did not improve much and has been worsening during the last couple of days which made him to come to ER. Denies any complaints of chest pain. No leg swelling. No nausea vomiting abdominal pain or diarrhea. Denies any dysuria or hematuria. Chest x-ray on admission showed emphysematous changes. EKG showed sinus rhythm. Laboratory showed WBC 6.4 hemoglobin 14.2 MCV 100.4 and platelets 204 Sodium 126 potassium 4.1 chloride 96 bicarb is 23 BUN 14 creatinine 0.65 Liver enzymes are not elevated proBNP 82 and troponin less than 0.012 and albumin 4.1 07/10/2021 Patient is seen and evaluated this morning and is being closely monitored. Pulmonary following and patient is maintained on breathing inhalational treatments along with IV steroids and will continue. Patient to continue with IV ceftriaxone as well. Patient is currently on 3L via NC and discussed with nursing staff about weaning FI02 as tolerated. Patient does not wear oxygen on a normal basis. Hyponatremia has improved. Patient denies chest pain or palpitations. Patient is afebrile.. 07/11/2021 Patient is seen today and states his breathing is slowly improving. Patient still requiring 2L of 02 via NC and continuing to wean as tolerated. Add humidification as patient reports to nasal irritation. Patient continued on IV steroids, IV antibiotics, and breathing inhalational treatments and will continue. Patient continues to be dyspneic with exertion. Encouraged increased activity as tolerated. Patient is afebrile. Patient denies chest pain. Review of systems: Constitutional: No reports of fatigue, no reports of fever, or chills Cardiovascular: No reports of chest pain or palpitations Respiratory: No reports of worsening shortness of breath,continues to be short of breath and coughing GI: No reports of nausea, no reports of vomiting : No reports of dysuria or retention Neurovascular:no reports of generalized weakness All medications have been reviewed Active Medications Acetaminophen (Acetaminophen Tab 325 Mg Tab) 650 mg PO Q6HR PRN PRN Reason: Mild Pain or Fever > 100.5 Last Admin: 07/11/21 21:12 Dose: 650 mg Documented by: Albuterol Sulfate (Albuterol Nebulized 1.25 Mg/3 Ml) 2.5 mg INHALATION RT-Q2H PRN PRN Reason: Wheezing Albuterol/Ipratropium (Ipratropium-Albuterol 3 Ml Neb) 3 ml INHALATION RT-Q4H [facility] Last Admin: 07/11/21 23:01 Dose: 3 ml Documented by: Aspirin (Aspirin 81 Mg) 81 mg PO DAILY [facility] Last Admin: 07/11/21 08:22 Dose: 81 mg Documented by: Atorvastatin Calcium (Atorvastatin 80 Mg Tab) 80 mg PO DAILY [facility] Last Admin: 07/11/21 08:22 Dose: 80 mg Documented by: Budesonide/Formoterol Fumarate (Symbicort 160-4.5 Mcg Inhaler) 2 puff INHALAT ION RT-BID [facility] Last Admin: 07/11/21 19:48 Dose: 2 puff Documented by: Gabapentin (Gabapentin 300 Mg Cap) 600 mg PO TID [facility] Last Admin: 07/11/21 21:12 Dose: 600 mg Documented by: Guaifenesin (Guaifenesin Syrup 100mg/5ml 200 Mg/10 Ml Cup) 200 mg PO Q6HR PRN PRN Reason: Cough Last Admin: 07/10/21 08:25 Dose: 200 mg Documented by: Heparin Sodium (Porcine) (Heparin Sodium,Porcine/Pf 5,000 Unit/0.5 Ml Syringe) 5,000 unit SQ Q12HR [facility] Last Admin: 07/11/21 21:12 Dose: 5,000 unit Documented by: Ceftriaxone Sodium 1 gm/ (Sodium Chloride) 50 mls @ 100 mls/hr IVPB Q24HR [facility]; Protocol Last Admin: 07/11/21 08:22 Dose: 100 mls/hr Documented by: Melatonin (Melatonin 3 Mg Tablet) 3 mg PO HS PRN PRN Reason: Insomnia Last Admin: 07/11/21 21:12 Dose: 3 mg Documented by: Methylprednisolone Sodium Succinate (Methylprednisolone Sod Succi 125 Mg/2 Ml Vial) 60 mg IV Q6HR [facility] Last Admin: 07/11/21 17:54 Dose: 60 mg Documented by: Metoprolol Tartrate (Metoprolol Tartrate 25 Mg Tab) 25 mg PO DAILY [facility] Last Admin: 07/11/21 08:23 Dose: 25 mg Documented by: Naloxone HCl (Naloxone 0.4 Mg/Ml 1 Ml Vial) 0.2 mg IV Q2M PRN PRN Reason: Opioid Reversal Ondansetron HCl (Ondansetron 4 Mg/2 Ml Vial) 4 mg IVP Q8HR PRN PRN Reason: Nausea And Vomiting Pantoprazole Sodium (Pantoprazole 40 Mg Tablet) 40 mg PO AC-BRKFST [facility] Last Admin: 07/11/21 08:22 Dose: 40 mg Documented by: Prasugrel (Prasugrel 10 Mg Tab) 10 mg PO DAILY [facility] Last Admin: 07/11/21 08:23 Dose: 10 mg Documented by: PHYSICAL EXAMINATION: GENERAL: The patient is alert and oriented x3 , well developed, well nourished HEENT: Pupils are round and equally reacting to light. EOMI. no scleral icterus. No conjunctival pallor. Normocephalic, atraumatic. No pharyngeal erythema. No thyromegaly. CARDIOVASCULAR: S1 and S2 muffled PULMONARY: diminished breath sounds bilaterally with some mild scattered rhonchi and expiratory wheezing noted. Improved aeration ABDOMEN: soft. non-tender on exam. thin. non-distended, normoactive bowel sounds. No palpable organomegaly. MUSCULOSKELETAL: No joint swelling or deformity. EXTREMITIES: No cyanosis, clubbing, or pedal edema. NEUROLOGICAL: no focal deficits noted. SKIN: No rashes. no lesions noted Assessment: Acute COPD exacerbation. Failed outpatient failed outpatient treatment. Purulent acute tracheobronchitis Ongoing nicotine addiction Hypovolemic hyponatremia, improved Coronary disease history of stent placement Paroxysmal atrial fibrillation not on any full anticoagulation History of GI bleed GERD Osteoarthritis Hypertension Type II sleep apnea on CPAP at home History of left lower extremity DVT Anxiety/depression DVT prophylaxis with heparin subcu Plan: Patient will be continued IV steroids and duo nebs and Symbicort. Pulmonary following and patient continues to be short of breath and on 2L via NC. Patient does not wear oxygen in the outpatient setting. Titrating FI02 as tolerated. Will continue with ceftriaxone. Sputum culture is negative thus far. Encouraged increased activity as tolerated. Encouraged oral intake. Continue with home medications and follow closely. Possible home 02 eval as patient may require oxygen on discharge to manage COPD. Objective - Vital Signs Vital signs: Vital Signs Temp 97.7 F 07/11/21 05:00 Pulse 90 07/11/21 08:28 Resp 16 07/11/21 08:28 BP 127/76 07/11/21 08:20 Pulse Ox 94 L 07/11/21 08:20 Intake & Output 07/10/21 07/11/21 07/11/21 18:59 06:59 18:59 Weight 67.5 kg Other: Voiding Method Toilet Toilet Urinal Urinal # Voids 3 3 - Labs CBC & Chem 7: 07/10/21 05:59 07/10/21 05:59 Labs: Abnormal Lab Results - Last 24 Hours (Table) 07/10/21 07/10/21 07/10/21 Range/Units 05:59 05:59 17:38 WBC 16.40 H (4.50-10.00) X 10*3/uL MCV 98.0 H (80.0-97.0) fL RDW 14.8 H (11.5-14.5) % Immature Gran # 0.10 H (0.00-0.04) X 10*3/uL Neutrophils # 14.65 H (1.80-7.70) X 10*3/uL Lymphocytes # 0.88 L (0.90-5.00) X 10*3/uL Eosinophils # 0 L (0.04-0.35) X 10*3/uL Carbon Dioxide 29.0 H (20.0-27.5) mmol/L Glucose 123 H (70-110) mg/dL POC Glucose (mg/dL) 118 H (75-99) mg/dL 07/10/21 07/11/21 Range/Units 19:59 07:28 WBC (4.50-10.00) X 10*3/uL MCV (80.0-97.0) fL RDW (11.5-14.5) % Immature Gran # (0.00-0.04) X 10*3/uL Neutrophils # (1.80-7.70) X 10*3/uL Lymphocytes # (0.90-5.00) X 10*3/uL Eosinophils # (0.04-0.35) X 10*3/uL Carbon Dioxide (20.0-27.5) mmol/L Glucose (70-110) mg/dL POC Glucose (mg/dL) 154 H 121 H (75-99) mg/dL Microbiology - Last 24 Hours (Table) 07/08/21 10:30 Blood Culture - Preliminary Blood No Growth after 48 hours 07/08/21 10:20 Blood Culture - Preliminary Blood No Growth after 48 hours 07/08/21 20:20 Gram Stain - Preliminary Sputum Sputum Culture - Preliminary
[2021-07-12] MEDS: IPRATROPIUM-ALBUTEROL 3 ML NEB INHALATION SCH ×6 (03:21→23:20)
[2021-07-12] MEDS: methylPREDNISolone SOD SUCCI 125 MG/2 ML VIAL IV SCH ×3 (05:36→17:53)
[2021-07-12 07:18] LABS: Glucose,Whole Blood 115 mg/dL (75-99)
[2021-07-12] MEDS: SYMBICORT 160-4.5 MCG INHALER INHALATION SCH ×2 (07:43→20:25)
[2021-07-12] MEDS: HEPARIN SODIUM,PORCINE/PF 5,000 UNIT/0.5 ML SYRINGE SQ SCH ×2 (08:46→20:29)
[2021-07-12] MEDS: METOPROLOL TARTRATE 25 MG TAB PO SCH (08:47)
[2021-07-12] MEDS: PRASUGREL 10 MG TAB PO SCH (08:47)
[2021-07-12] MEDS: GABAPENTIN 300 MG CAP PO SCH ×3 (08:47→20:29)
[2021-07-12] MEDS: ASPIRIN 81 MG PO SCH (08:47)
[2021-07-12] MEDS: PANTOPRAZOLE 40 MG TABLET PO SCH (08:47)
[2021-07-12] MEDS: ATORVASTATIN 80 MG TAB PO SCH (08:47)
--- NOTE | 2021-07-12 10:54 | P.PN ---
<Betsy Mccormick M - Last Filed: 07/12/21 10:51> Subjective Progress Note Date: 07/12/21 Principal diagnosis: Shortness of breath 07/10/2021, the patient is feeling slightly less short of breath compared to yesterday. No significant cough. No sputum production. The chest remains congested. He was Hospital as yesterday for an acute COPD exacerbation. He was also seen in consultation. He was started on Ventolin about treatments around the clock, he is also on Symbicort as maintenance regarding his COPD. He is also on IV Solu Medrol 60 mg every 6 hours. He was given IV Rocephin as an empiric antibiotic coverage. He takes an Anoro Ellipta in combination with Symbicort outpatient basis as maintenance regarding COPD. The blood work from today shows a white second of 16.4 with a hemoglobin 13.8. Electrodes are all within normal limits. Blood sugars nonelevated. On 07/11/2021 patient seen in follow-up. Patient states he is feeling better, he remains on 2 L of oxygen his pulse ox is 94%, he remains on Solu-Medrol, Rocephin, nebulized bronchodilators, lung sounds are positive for prolonged expiratory phase, wheezing. But overall improved. He is coughing up some clear -colored phlegm. No fever or chills. Short of breath with exertion, but has been able to ambulate to the bathroom. On 07/12/2021 patient seen in follow-up on medical surgical floor. He states he is improving, he states he is about 40% improved since his admission in terms of his dyspnea, wheezing and coughing. Still sounds tight and wheezy on today's exam, he continues on empiric antibiotics, IV steroids, breathing treatments. He is tolerating ambulation to the bathroom, he was able to take a shower. Feeling better, no acute events overnight Objective - Vital Signs Vital signs: Vital Signs Temp 97.6 F 07/12/21 05:00 Pulse 85 07/12/21 07:55 Resp 18 07/12/21 05:00 BP 131/85 07/12/21 05:00 Pulse Ox 92 L 07/12/21 07:43 Intake & Output 07/11/21 07/12/21 07/12/21 18:59 06:59 18:59 Other: Voiding Method Toilet Toilet Urinal Urinal # Voids 2 4 - Exam GENERAL EXAM: Alert, very pleasant, 59 white male, on 2 L of oxygen pulse ox of 94%, comfortable in no apparent distress. HEAD: Normocephalic/atraumatic. EYES: Normal reaction of pupils, equal size. Conjunctiva pink, sclera white. NOSE: Clear with pink turbinates. THROAT: No erythema or exudates. NECK: No masses, no JVD, no thyroid enlargement, no adenopathy. CHEST: No chest wall deformity. Symmetrical expansion. LUNGS: Equal air entry with expiratory wheezing, prolonged expiratory phase CVS: Regular rate and rhythm, normal S1 and S2, no gallops, no murmurs, no rubs ABDOMEN: Soft, nontender. No hepatosplenomegaly, normal bowel sounds, no guarding or rigidity. EXTREMITIES: No clubbing, no edema, no cyanosis, 2+ pulses and upper and lower extremities. MUSCULOSKELETAL: Muscle strength and tone normal. SPINE: No scoliosis or deformity SKIN: No rashes CENTRAL NERVOUS SYSTEM: Alert and oriented -3. No focal deficits, tone is normal in all 4 extremities. PSYCHIATRIC: Alert and oriented -3. Appropriate affect. Intact judgment and insight. - Labs CBC & Chem 7: 07/10/21 05:59 07/10/21 05:59 Labs: Abnormal Lab Results - Last 24 Hours (Table) 07/11/21 07/11/21 07/12/21 Range/Units 17:50 20:38 07:16 POC Glucose (mg/dL) 141 H 115 H 115 H (75-99) mg/dL Microbiology - Last 24 Hours (Table) 07/08/21 10:20 Blood Culture - Preliminary Blood No Growth after 72 hours 07/08/21 10:30 Blood Culture - Preliminary Blood No Growth after 72 hours 07/08/21 20:20 Gram Stain - Final Sputum Sputum Culture - Final Assessment and Plan Plan: Assessment: #1. Acute exacerbation of COPD with failed outpatient treatment, increased dyspnea, cough, chest tightness and wheezing. Chest x-ray showed emphysema without acute pulmonary infiltrates. Patient is status post complete a the 19th vaccination, and COVID-19 patient was negative #2. Dyspnea and wheezing relates the above #3. Coronary artery disease with previous stenting of the LAD 2 and RCA #4. Chronic atrial fibrillation #5. Remote history of DVT #6. History of GI bleeding #7. Current smoker, currently down to 5 cigarettes a day #8. Peripheral vascular disease #9. History of alcoholism #10. History of pneumothorax Plan: Patient slightly more improved Still dyspneic with exertion, and bronchospastic Continue current medical treatment Continue IV steroids and antibiotics Continue nebulized bronchodilators We'll continue to follow his progress I have personally seen and examined the patient, performed the documentation and the assessment and plan as written. Number of minutes spent on the visit: [10] Time with Patient: Less than 30 <Jass Nelson - Last Filed: 07/12/21 15:40> Objective - Vital Signs Vital signs: Vital Signs Temp 97.6 F 07/12/21 12:03 Pulse 72 07/12/21 12:03 Resp 22 07/12/21 12:03 BP 112/74 07/12/21 12:03 Pulse Ox 95 07/12/21 12:03 Intake & Output 07/11/21 07/12/21 07/12/21 18:59 06:59 18:59 Other: Voiding Method Toilet Toilet Urinal Urinal # Voids 2 4 - Labs CBC & Chem 7: 07/10/21 05:59 07/10/21 05:59 Labs: Abnormal Lab Results - Last 24 Hours (Table) 07/11/21 07/11/21 07/12/21 Range/Units 17:50 20:38 07:16 POC Glucose (mg/dL) 141 H 115 H 115 H (75-99) mg/dL Microbiology - Last 24 Hours (Table) 07/08/21 10:30 Blood Culture - Preliminary Blood No Growth after 96 hours 07/08/21 10:20 Blood Culture - Preliminary Blood No Growth after 96 hours Assessment and Plan Plan: I have personally seen and examined the patient and reviewed the documentation. I performed a joint evaluation with the nurse practitioner in this evaluation was done more than 20 minutes. I fully agree with the documentation above and the plan of care.
[2021-07-12 12:03] LABS: Glucose,Whole Blood 77 mg/dL (75-99)
[2021-07-12 17:14] LABS: Glucose,Whole Blood 111 mg/dL (75-99)
[2021-07-12] MEDS: ACETAMINOPHEN TAB 325 MG TAB PO PRN (20:29)
[2021-07-12 21:21] LABS: Glucose,Whole Blood 213 mg/dL (75-99)
--- NOTE | 2021-07-13 00:53 | P.PN ---
Subjective Progress Note Date: 07/12/21 Patient is a 60-year-old male with a known history of COPD, paroxysmal atrial fibrillation, coronary disease with history of stent placement, history of GI bleed, osteoarthritis and obstructive sleep apnea, anxiety/depression currently everyday smoker presents to ER with worsening shortness of breath for the past 3 weeks. Patient also complaining of cough with sometimes yellowish sputum production. He denies any complaints of fever or chills. Patient was seen by his primary care physician and was given 5-day course of steroids and antibiotics which he completed about 3 weeks ago. His symptoms did not improve much and has been worsening during the last couple of days which made him to come to ER. Denies any complaints of chest pain. No leg swelling. No nausea vomiting abdominal pain or diarrhea. Denies any dysuria or hematuria. Chest x-ray on admission showed emphysematous changes. EKG showed sinus rhythm. Laboratory showed WBC 6.4 hemoglobin 14.2 MCV 100.4 and platelets 204 Sodium 126 potassium 4.1 chloride 96 bicarb is 23 BUN 14 creatinine 0.65 Liver enzymes are not elevated proBNP 82 and troponin less than 0.012 and albumin 4.1 07/10/2021 Patient is seen and evaluated this morning and is being closely monitored. Pulmonary following and patient is maintained on breathing inhalational treatments along with IV steroids and will continue. Patient to continue with IV ceftriaxone as well. Patient is currently on 3L via NC and discussed with nursing staff about weaning FI02 as tolerated. Patient does not wear oxygen on a normal basis. Hyponatremia has improved. Patient denies chest pain or palpitations. Patient is afebrile.. 07/11/2021 Patient is seen today and states his breathing is slowly improving. Patient still requiring 2L of 02 via NC and continuing to wean as tolerated. Add humidification as patient reports to nasal irritation. Patient continued on IV steroids, IV antibiotics, and breathing inhalational treatments and will continue. Patient continues to be dyspneic with exertion. Encouraged increased activity as tolerated. Patient is afebrile. Patient denies chest pain. 07/12/2021 Patient is seen and evaluated in follow up this morning and continues with shortness of breath. Patient is currently on 2 Liters via NC and has been taking the 02 off multiple times and getting up and walking. Patient is continued on IV steroids, iv ceftriaxone, and breathing treatments. Patient to have home 02 eval. Encouraged increased activity as tolerated. Patient is afebrile. Patient denies chest pain or worsening shortness of breath. Review of systems: Constitutional: No reports of fatigue, no reports of fever, or chills Cardiovascular: No reports of chest pain or palpitations Respiratory: No reports of worsening shortness of breath,continues to be short o f breath and coughing GI: No reports of nausea, no reports of vomiting : No reports of dysuria or retention Neurovascular:no reports of generalized weakness All medications have been reviewed Active Medications Acetaminophen (Acetaminophen Tab 325 Mg Tab) 650 mg PO Q6HR PRN PRN Reason: Mild Pain or Fever > 100.5 Last Admin: 07/11/21 21:12 Dose: 650 mg Documented by: Albuterol Sulfate (Albuterol Nebulized 1.25 Mg/3 Ml) 2.5 mg INHALATION RT-Q2H PRN PRN Reason: Wheezing Albuterol/Ipratropium (Ipratropium-Albuterol 3 Ml Neb) 3 ml INHALATION RT-Q4H [facility] Last Admin: 07/11/21 23:01 Dose: 3 ml Documented by: Aspirin (Aspirin 81 Mg) 81 mg PO DAILY [facility] Last Admin: 07/11/21 08:22 Dose: 81 mg Documented by: Atorvastatin Calcium (Atorvastatin 80 Mg Tab) 80 mg PO DAILY [facility] Last Admin: 07/11/21 08:22 Dose: 80 mg Documented by: Budesonide/Formoterol Fumarate (Symbicort 160-4.5 Mcg Inhaler) 2 puff INHALATION RT-BID [facility] Last Admin: 07/11/21 19:48 Dose: 2 puff Documented by: Gabapentin (Gabapentin 300 Mg Cap) 600 mg PO TID [facility] Last Admin: 07/11/21 21:12 Dose: 600 mg Documented by: Guaifenesin (Guaifenesin Syrup 100mg/5ml 200 Mg/10 Ml Cup) 200 mg PO Q6HR PRN PRN Reason: Cough Last Admin: 07/10/21 08:25 Dose: 200 mg Documented by: Heparin Sodium (Porcine) (Heparin Sodium,Porcine/Pf 5,000 Unit/0.5 Ml Syringe) 5,000 unit SQ Q12HR [facility] Last Admin: 07/11/21 21:12 Dose: 5,000 unit Documented by: Ceftriaxone Sodium 1 gm/ (Sodium Chloride) 50 mls @ 100 mls/hr IVPB Q24HR [facility]; Protocol Last Admin: 07/11/21 08:22 Dose: 100 mls/hr Documented by: Melatonin (Melatonin 3 Mg Tablet) 3 mg PO HS PRN PRN Reason: Insomnia Last Admin: 07/11/21 21:12 Dose: 3 mg Documented by: Methylprednisolone Sodium Succinate (Methylprednisolone Sod Succi 125 Mg/2 Ml Vial) 60 mg IV Q6HR [facility] Last Admin: 07/11/21 17:54 Dose: 60 mg Documented by: Metoprolol Tartrate (Metoprolol Tartrate 25 Mg Tab) 25 mg PO DAILY [facility] Last Admin: 07/11/21 08:23 Dose: 25 mg Documented by: Naloxone HCl (Naloxone 0.4 Mg/Ml 1 Ml Vial) 0.2 mg IV Q2M PRN PRN Reason: Opioid Reversal Ondansetron HCl (Ondansetron 4 Mg/2 Ml Vial) 4 mg IVP Q8HR PRN PRN Reason: Nausea And Vomiting Pantoprazole Sodium (Pantoprazole 40 Mg Tablet) 40 mg PO AC-BRKFST [facility] Last Admin: 07/11/21 08:22 Dose: 40 mg Documented by: Prasugrel (Prasugrel 10 Mg Tab) 10 mg PO DAILY [facility] Last Admin: 07/11/21 08:23 Dose: 10 mg Documented by: PHYSICAL EXAMINATION: GENERAL: The patient is alert and oriented x3 , well developed, well nourished HEENT: Pupils are round and equally reacting to light. EOMI. no scleral icterus. No conjunctival pallor. Normocephalic, atraumatic. No pharyngeal erythema. No thyromegaly. CARDIOVASCULAR: S1 and S2 muffled PULMONARY: diminished breath sounds bilaterally with some mild scattered rhonchi and expiratory wheezing noted. Improved aeration ABDOMEN: soft. non-tender on exam. thin. non-distended, normoactive bowel sounds. No palpable organomegaly. MUSCULOSKELETAL: No joint swelling or deformity. EXTREMITIES: No cyanosis, clubbing, or pedal edema. NEUROLOGICAL: no focal deficits noted. SKIN: No rashes. no lesions noted Assessment: Acute COPD exacerbation. Failed outpatient failed outpatient treatment. Acute hypoxic respiratory failure secondary to COPD exacerbation, requiring 4 L via nasal cannula, currently down to 2 L Purulent acute tracheobronchitis Ongoing nicotine addiction Hypovolemic hyponatremia, improved Coronary disease history of stent placement Paroxysmal atrial fibrillation not on any full anticoagulation History of GI bleed GERD Osteoarthritis Hypertension Type II sleep apnea on CPAP at home History of left lower extremity DVT Anxiety/depression DVT prophylaxis with heparin subcu Plan: Patient will be continued IV steroids and duo nebs and Symbicort. Pulmonary following and patient continues to be short of breath and on 2L via NC. Patient does not wear oxygen in the outpatient setting. Titrating FI02 as tolerated. Will continue with ceftriaxone. Sputum culture is negative thus far. Encouraged increased activity as tolerated. Encouraged oral intake. Continue with home medications and follow closely. home 02 eval in process. Patient continues with diminished lung sounds and expiratory wheezing. Continue current medications and will follow up in am. Patient not to baseline. Objective - Vital Signs Vital signs: Vital Signs Temp 97.6 F 07/12/21 05:00 Pulse 85 07/12/21 07:55 Resp 18 07/12/21 05:00 BP 131/85 07/12/21 05:00 Pulse Ox 92 L 07/12/21 07:43 Intake & Output 07/11/21 07/12/21 07/12/21 18:59 06:59 18:59 Other: Voiding Method Toilet Toilet Urinal Urinal # Voids 2 4 - Labs CBC & Chem 7: 07/10/21 05:59 07/10/21 05:59 Labs: Abnormal Lab Results - Last 24 Hours (Table) 07/11/21 07/11/21 07/12/21 Range/Units 17:50 20:38 07:16 POC Glucose (mg/dL) 141 H 115 H 115 H (75-99) mg/dL Microbiology - Last 24 Hours (Table) 07/08/21 10:20 Blood Culture - Preliminary Blood No Growth after 72 hours 07/08/21 10:30 Blood Culture - Preliminary Blood No Growth after 72 hours 07/08/21 20:20 Gram Stain - Final Sputum Sputum Culture - Final
[2021-07-13] MEDS: IPRATROPIUM-ALBUTEROL 3 ML NEB INHALATION SCH ×5 (03:57→19:23)
[2021-07-13] MEDS: methylPREDNISolone SOD SUCCI 125 MG/2 ML VIAL IV SCH ×5 (05:27→23:43)
[2021-07-13 06:43] LABS: Basophils % (A) 0 %; Eosinophils % (A) 0 %; HCT 50.9 % (39.0-53.0); HGB 16.5 gm/dL (13.0-17.5); Lymphocytes # (A) 0.8 k/uL (1.0-4.8); Lymphocytes % (A) 9 %; MCH 32.6 pg (25.0-35.0); MCHC 32.4 g/dL (31.0-37.0); MCV 100.7 fL (80.0-100.0); Macrocytosis Slight; Mean Platelet Volume 7.3; Monocytes # (A) 0.4 k/uL (0-1.0); Monocytes % (A) 4 %; Neutrophils % (A) 86 %; Platelet Count 327 k/uL (150-450); RBC 5.05 m/uL (4.30-5.90); RDW 14.1 % (11.5-15.5); WBC 9.3 k/uL (3.8-10.6)
[2021-07-13 06:57] LABS: African American GFR (CKD) >90 (>60 ml/min/1.73 sqM); Anion Gap 6 mmol/L; Blood Urea Nitrogen 18 mg/dL (9-20); Calcium 9.5 mg/dL (8.4-10.2); Carbon Dioxide 35 mmol/L (22-30); Chloride 96 mmol/L (98-107); Glucose 115 mg/dL (74-99); Non-African American GFR(CKD) >90 (>60 ml/min/1.73 sqM); Potassium 4.8 mmol/L (3.5-5.1); Sodium 137 mmol/L (137-145)
[2021-07-13] MEDS: SYMBICORT 160-4.5 MCG INHALER INHALATION SCH ×2 (07:24→19:23)
[2021-07-13 07:42] LABS: Glucose,Whole Blood 115 mg/dL (75-99)
[2021-07-13] MEDS: ASPIRIN 81 MG PO SCH (08:17)
[2021-07-13] MEDS: GABAPENTIN 300 MG CAP PO SCH ×3 (08:17→20:59)
[2021-07-13] MEDS: METOPROLOL TARTRATE 25 MG TAB PO SCH (08:17)
[2021-07-13] MEDS: ATORVASTATIN 80 MG TAB PO SCH (08:17)
[2021-07-13] MEDS: PANTOPRAZOLE 40 MG TABLET PO SCH (08:17)
[2021-07-13] MEDS: PRASUGREL 10 MG TAB PO SCH (08:19)
[2021-07-13] MEDS: HEPARIN SODIUM,PORCINE/PF 5,000 UNIT/0.5 ML SYRINGE SQ SCH ×2 (08:19→20:55)
--- NOTE | 2021-07-13 12:10 | P.PN ---
<Betsy Mccormick M - Last Filed: 07/13/21 12:10> Subjective Progress Note Date: 07/13/21 Principal diagnosis: Shortness of breath 07/10/2021, the patient is feeling slightly less short of breath compared to yesterday. No significant cough. No sputum production. The chest remains congested. He was Hospital as yesterday for an acute COPD exacerbation. He was also seen in consultation. He was started on Ventolin about treatments around the clock, he is also on Symbicort as maintenance regarding his COPD. He is also on IV Solu Medrol 60 mg every 6 hours. He was given IV Rocephin as an empiric antibiotic coverage. He takes an Anoro Ellipta in combination with Symbicort outpatient basis as maintenance regarding COPD. The blood work from today shows a white second of 16.4 with a hemoglobin 13.8. Electrodes are all within normal limits. Blood sugars nonelevated. On 07/11/2021 patient seen in follow-up. Patient states he is feeling better, he remains on 2 L of oxygen his pulse ox is 94%, he remains on Solu-Medrol, Rocephin, nebulized bronchodilators, lung sounds are positive for prolonged expiratory phase, wheezing. But overall improved. He is coughing up some clear -colored phlegm. No fever or chills. Short of breath with exertion, but has been able to ambulate to the bathroom. On 07/12/2021 patient seen in follow-up on medical surgical floor. He states he is improving, he states he is about 40% improved since his admission in terms of his dyspnea, wheezing and coughing. Still sounds tight and wheezy on today's exam, he continues on empiric antibiotics, IV steroids, breathing treatments. He is tolerating ambulation to the bathroom, he was able to take a shower. Feeling better, no acute events overnight On 07/13/2021 patient seen in follow-up on medical surgical floor, he states he doesn't feel much improvement in his breathing since he came in, although yesterday he thought he was about 40% improved. He remains on 2 L of oxygen his pulse ox is 92-96%, breathing comfortably at rest, does not appear to be in any acute distress, occasional cough, and occasional production of whitish colored phlegm, no fever overnight, vital signs have been stable, he remains on DuoNeb nebulized treatments, remains on Symbicort is on empiric antibiotics in the form of Rocephin, he is on Robitussin cough syrup, and IV steroids at 60 mg every 6 hours. Today's labs have been reviewed, white blood cell count is 9.3, hemoglobin is 16.5, sodium is 137, potassium is 4.8, chloride is 96, CO2 35, BUN is 18, creatinine 0.65. His blood and sputum cultures have been negative. Mildly expiratory wheezing, but no acute distress, overall diminished breath sounds bilaterally. Objective - Vital Signs Vital signs: Vital Signs Temp 97.7 F 07/13/21 05:00 Pulse 80 07/13/21 07:35 Resp 18 07/13/21 05:00 BP 123/79 07/13/21 05:00 Pulse Ox 97 07/13/21 05:00 Intake & Output 07/12/21 07/13/21 07/13/21 18:59 06:59 18:59 Intake Total 100 Balance 100 Intake: Oral 100 Other: Voiding Method Toilet Toilet Urinal Urinal # Voids 3 1 - Exam GENERAL EXAM: Alert, very pleasant, 59 white male, on 2 L of oxygen pulse ox of 94%, comfortable in no apparent distress. HEAD: Normocephalic/atraumatic. EYES: Normal reaction of pupils, equal size. Conjunctiva pink, sclera white. NOSE: Clear with pink turbinates. THROAT: No erythema or exudates. NECK: No masses, no JVD, no thyroid enlargement, no adenopathy. CHEST: No chest wall deformity. Symmetrical expansion. LUNGS: Equal air entry with expiratory wheezing, prolonged expiratory phase CVS: Regular rate and rhythm, normal S1 and S2, no gallops, no murmurs, no rubs ABDOMEN: Soft, nontender. No hepatosplenomegaly, normal bowel sounds, no guarding or rigidity. EXTREMITIES: No clubbing, no edema, no cyanosis, 2+ pulses and upper and lower extremities. MUSCULOSKELETAL: Muscle strength and tone normal. SPINE: No scoliosis or deformity SKIN: No rashes CENTRAL NERVOUS SYSTEM: Alert and oriented -3. No focal deficits, tone is normal in all 4 extremities. PSYCHIATRIC: Alert and oriented -3. Appropriate affect. Intact judgment and insight. - Labs CBC & Chem 7: 07/13/21 05:51 07/13/21 05:51 Labs: Abnormal Lab Results - Last 24 Hours (Table) 07/12/21 07/12/21 07/13/21 Range/Units 17:12 21:10 05:51 MCV 100.7 H (80.0-100.0) fL Neutrophils # 8.0 H (1.3-7.7) k/uL Lymphocytes # 0.8 L (1.0-4.8) k/uL Chloride (98-107) mmol/L Carbon Dioxide (22-30) mmol/L Creatinine (0.66-1.25) mg/dL Glucose (74-99) mg/dL POC Glucose (mg/dL) 111 H 213 H (75-99) mg/dL 07/13/21 07/13/21 Range/Units 05:51 07:39 MCV (80.0-100.0) fL Neutrophils # (1.3-7.7) k/uL Lymphocytes # (1.0-4.8) k/uL Chloride 96 L (98-107) mmol/L Carbon Dioxide 35 H (22-30) mmol/L Creatinine 0.65 L (0.66-1.25) mg/dL Glucose 115 H (74-99) mg/dL POC Glucose (mg/dL) 115 H (75-99) mg/dL Microbiology - Last 24 Hours (Table) 07/08/21 10:30 Blood Culture - Preliminary Blood No Growth after 96 hours 07/08/21 10:20 Blood Culture - Preliminary Blood No Growth after 96 hours Assessment and Plan Plan: Assessment: #1. Acute exacerbation of COPD with failed outpatient treatment, increased dyspnea, cough, chest tightness and wheezing. Chest x-ray showed emphysema without acute pulmonary infiltrates. Patient is status post complete a the 19th vaccination, and COVID-19 patient was negative #2. Dyspnea and wheezing relates the above #3. Coronary artery disease with previous stenting of the LAD 2 and RCA #4. Chronic atrial fibrillation #5. Remote history of DVT #6. History of GI bleeding #7. Current smoker, currently down to 5 cigarettes a day #8. Peripheral vascular disease #9. History of alcoholism #10. History of pneumothorax Plan: Continue current medical treatment Vital signs are stable Weaning FiO2 Increase activity as tolerated Patient is frustrated feels like he has made only limited progress On physical exam there is no worsening wheezing, or coughing Recommend continuing with current medical treatment I have personally seen and examined the patient, performed the documentation and the assessment and plan as written. Number of minutes spent on the visit: [10] Time with Patient: Less than 30 <FredericmarlenaJass - Last Filed: 07/14/21 15:34> Objective - Vital Signs Vital signs: Vital Signs Temp 97.7 F 07/13/21 11:30 Pulse 80 07/13/21 15:52 Resp 18 07/13/21 11:30 BP 117/74 07/13/21 11:30 Pulse Ox 90 L 07/13/21 13:03 Intake & Output 07/12/21 07/13/21 07/13/21 18:59 06:59 18:59 Intake Total 100 50 Balance 100 50 Intake: Intake, IV Titration 50 Amount cefTRIAXone 1 gm In 50 Sodium Chloride 0.9% 50 ml @ 100 mls/hr IVPB Q24HR [facility] Rx#:[id number] Oral 100 Other: Voiding Method Toilet Toilet Urinal Urinal # Voids 3 1 - Labs CBC & Chem 7: 07/13/21 05:51 07/13/21 05:51 Labs: Abnormal Lab Results - Last 24 Hours (Table) 07/12/21 07/13/21 07/13/21 Range/Units 21:10 05:51 05:51 MCV 100.7 H (80.0-100.0) fL Neutrophils # 8.0 H (1.3-7.7) k/uL Lymphocytes # 0.8 L (1.0-4.8) k/uL Chloride 96 L (98-107) mmol/L Carbon Dioxide 35 H (22-30) mmol/L Creatinine 0.65 L (0.66-1.25) mg/dL Glucose 115 H (74-99) mg/dL POC Glucose (mg/dL) 213 H (75-99) mg/dL 07/13/21 07/13/21 Range/Units 07:39 17:14 MCV (80.0-100.0) fL Neutrophils # (1.3-7.7) k/uL Lymphocytes # (1.0-4.8) k/uL Chloride (98-107) mmol/L Carbon Dioxide (22-30) mmol/L Creatinine (0.66-1.25) mg/dL Glucose (74-99) mg/dL POC Glucose (mg/dL) 115 H 114 H (75-99) mg/dL Microbiology - Last 24 Hours (Table) 07/08/21 10:30 Blood Culture - Preliminary Blood No Growth after 120 hours 07/08/21 10:20 Blood Culture - Preliminary Blood No Growth after 120 hours Assessment and Plan Plan: I have personally seen and examined the patient and reviewed the documentation. I performed a joint evaluation with the nurse practitioner in this evaluation was done more than 20 minutes. I fully agree with the documentation above and the plan of care.
[2021-07-13 12:20] LABS: Glucose,Whole Blood 86 mg/dL (75-99)
[2021-07-13 17:17] LABS: Glucose,Whole Blood 114 mg/dL (75-99)
[2021-07-13 21:00] LABS: Glucose,Whole Blood 130 mg/dL (75-99)
[2021-07-14] MEDS: IPRATROPIUM-ALBUTEROL 3 ML NEB INHALATION SCH ×7 (00:28→23:52)
--- NOTE | 2021-07-14 00:35 | P.PN ---
Subjective Progress Note Date: 07/13/21 Patient is a 60-year-old male with a known history of COPD, paroxysmal atrial fibrillation, coronary disease with history of stent placement, history of GI bleed, osteoarthritis and obstructive sleep apnea, anxiety/depression currently everyday smoker presents to ER with worsening shortness of breath for the past 3 weeks. Patient also complaining of cough with sometimes yellowish sputum production. He denies any complaints of fever or chills. Patient was seen by his primary care physician and was given 5-day course of steroids and antibiotics which he completed about 3 weeks ago. His symptoms did not improve much and has been worsening during the last couple of days which made him to come to ER. Denies any complaints of chest pain. No leg swelling. No nausea vomiting abdominal pain or diarrhea. Denies any dysuria or hematuria. Chest x-ray on admission showed emphysematous changes. EKG showed sinus rhythm. Laboratory showed WBC 6.4 hemoglobin 14.2 MCV 100.4 and platelets 204 Sodium 126 potassium 4.1 chloride 96 bicarb is 23 BUN 14 creatinine 0.65 Liver enzymes are not elevated proBNP 82 and troponin less than 0.012 and albumin 4.1 07/10/2021 Patient is seen and evaluated this morning and is being closely monitored. Pulmonary following and patient is maintained on breathing inhalational treatments along with IV steroids and will continue. Patient to continue with IV ceftriaxone as well. Patient is currently on 3L via NC and discussed with nursing staff about weaning FI02 as tolerated. Patient does not wear oxygen on a normal basis. Hyponatremia has improved. Patient denies chest pain or palpitations. Patient is afebrile.. 07/11/2021 Patient is seen today and states his breathing is slowly improving. Patient still requiring 2L of 02 via NC and continuing to wean as tolerated. Add humidification as patient reports to nasal irritation. Patient continued on IV steroids, IV antibiotics, and breathing inhalational treatments and will continue. Patient continues to be dyspneic with exertion. Encouraged increased activity as tolerated. Patient is afebrile. Patient denies chest pain. 07/12/2021 Patient is seen and evaluated in follow up this morning and continues with shortness of breath. Patient is currently on 2 Liters via NC and has been taking the 02 off multiple times and getting up and walking. Patient is continued on IV steroids, iv ceftriaxone, and breathing treatments. Patient to have home 02 eval. Encouraged increased activity as tolerated. Patient is afebrile. Patient denies chest pain or worsening shortness of breath. 07/13/2021 Patient is seen in follow up today and continues to be dyspneic with exertion and continued on 2 Liters. Home 02 eval done and patient is 86% on room air with exertion and patient will need 02 at 2L via NC to manage COPD on discharge. Patient is continued on IV steroids, abx, and breathing treatments and will continue. Continue to encourage increased activity as tolerated. Patient is becoming frustrated with his slow progression to improve. Discussed and educated on the importance of continuing with smoking cessation. Review of systems: Constitutional: No reports of fatigue, no reports of fever, or chills Cardiovascular: No reports of chest pain or palpitations Respiratory: No reports of worsening shortness of breath,continues to be short of breath and coughing GI: No reports of nausea, no reports of vomiting : No reports of dysuria or retention Neurovascular:no reports of generalized weakness All medications have been reviewed Active Medications Acetaminophen (Acetaminophen Tab 325 Mg Tab) 650 mg PO Q6HR PRN PRN Reason: Mild Pain or Fever > 100.5 Last Admin: 07/12/21 20:29 Dose: 650 mg Documented by: Albuterol Sulfate (Albuterol Nebulized 1.25 Mg/3 Ml) 2.5 mg INHALATION RT-Q2H PRN PRN Reason: Wheezing Albuterol/Ipratropium (Ipratropium-Albuterol 3 Ml Neb) 3 ml INHALATION RT-Q4H [facility] Last Admin: 07/13/21 19:23 Dose: 3 ml Documented by: Aspirin (Aspirin 81 Mg) 81 mg PO DAILY [facility] Last Admin: 07/13/21 08:17 Dose: 81 mg Documented by: Atorvastatin Calcium (Atorvastatin 80 Mg Tab) 80 mg PO DAILY [facility] Last Admin: 07/13/21 08:17 Dose: 80 mg Documented by: Budesonide/Formoterol Fumarate (Symbicort 160-4.5 Mcg Inhaler) 2 puff INHALATION RT-BID [facility] Last Admin: 07/13/21 19:23 Dose: 2 puff Documented by: Gabapentin (Gabapentin 300 Mg Cap) 600 mg PO TID [facility] Last Admin: 07/13/21 20:59 Dose: 600 mg Documented by: Guaifenesin (Guaifenesin Syrup 100mg/5ml 200 Mg/10 Ml Cup) 200 mg PO Q6HR PRN PRN Reason: Cough Last Admin: 07/10/21 08:25 Dose: 200 mg Documented by: Heparin Sodium (Porcine) (Heparin Sodium,Porcine/Pf 5,000 Unit/0.5 Ml Syringe) 5,000 unit SQ Q12HR [facility] Last Admin: 07/13/21 20:55 Dose: 5,000 unit Documented by: Ceftriaxone Sodium 1 gm/ (Sodium Chloride) 50 mls @ 100 mls/hr IVPB Q24HR [facility]; Protocol Last Admin: 07/13/21 08:18 Dose: 100 mls/hr Documented by: Melatonin (Melatonin 3 Mg Tablet) 3 mg PO HS PRN PRN Reason: Insomnia Last Admin: 07/11/21 21:12 Dose: 3 mg Documented by: Methylprednisolone Sodium Succinate (Methylprednisolone Sod Succi 125 Mg/2 Ml Vial) 40 mg IV Q8H [facility] Metoprolol Tartrate (Metoprolol Tartrate 25 Mg Tab) 25 mg PO DAILY [facility] Last Admin: 07/13/21 08:17 Dose: 25 mg Documented by: Naloxone HCl (Naloxone 0.4 Mg/Ml 1 Ml Vial) 0.2 mg IV Q2M PRN PRN Reason: Opioid Reversal Ondansetron HCl (Ondansetron 4 Mg/2 Ml Vial) 4 mg IVP Q8HR PRN PRN Reason: Nausea And Vomiting Pantoprazole Sodium (Pantoprazole 40 Mg Tablet) 40 mg PO AC-BRKFST [facility] Last Admin: 07/13/21 08:17 Dose: 40 mg Documented by: Prasugrel (Prasugrel 10 Mg Tab) 10 mg PO DAILY [facility] Last Admin: 07/13/21 08:19 Dose: 10 mg Documented by: PHYSICAL EXAMINATION: GENERAL: The patient is alert and oriented x3 , well developed, well nourished HEENT: Pupils are round and equally reacting to light. EOMI. no scleral icterus. No conjunctival pallor. Normocephalic, atraumatic. No pharyngeal erythema. No thyromegaly. CARDIOVASCULAR: S1 and S2 muffled PULMONARY: diminished breath sounds bilaterally with some mild scattered rhonchi and expiratory wheezing noted. Improved aeration although still quite diminished ABDOMEN: soft. non-tender on exam. thin. non-distended, normoactive bowel s ounds. No palpable organomegaly. MUSCULOSKELETAL: No joint swelling or deformity. EXTREMITIES: No cyanosis, clubbing, or pedal edema. NEUROLOGICAL: no focal deficits noted. SKIN: No rashes. no lesions noted Assessment: Acute COPD exacerbation. Failed outpatient failed outpatient treatment. Acute hypoxic respiratory failure secondary to COPD exacerbation, requiring 2 L via nasal cannula Purulent acute tracheobronchitis Ongoing nicotine addiction Hypovolemic hyponatremia, improved Coronary disease history of stent placement Paroxysmal atrial fibrillation not on any full anticoagulation History of GI bleed GERD Osteoarthritis Hypertension Type II sleep apnea on CPAP at home History of left lower extremity DVT Anxiety/depression DVT prophylaxis with heparin subcu Plan: Patient will be continued IV steroids and duo nebs and Symbicort. Pulmonary following and patient continues to be short of breath and on 2L via NC. Titrating FI02 as tolerated. Slow to improve. Will continue with ceftriaxone. Sputum culture is negative thus far. Encouraged increased activity as tolerated. Encouraged oral intake. Continue with home medications and follow closely. home 02 eval in process and patient will require 2L via NC to manage COPD. Oxygen saturation was 86% on room air. Social work following and prescription provided for home 02. Patient continues with diminished lung sounds and expiratory wheezing. Continue current medications and will follow up in am. Patient not to baseline. The impression and plan of care has been dictated by Sita Franklin, nurse practitioner as directed. MD Tera I have performed a history and examination and MDM of this patient, discussed the same with the dictator, and agree with the dictator's assessment and plan as written ,documented as a scribe. Based on total visit time, I have performed more than 50% of the visit. Number of minutes spent on the visit, 10 minutes. Any additional findings or plans will be noted. Objective - Vital Signs Vital signs: Vital Signs Temp 97.7 F 07/13/21 05:00 Pulse 80 07/13/21 07:35 Resp 18 07/13/21 05:00 BP 123/79 07/13/21 05:00 Pulse Ox 97 07/13/21 05:00 Intake & Output 07/12/21 07/13/21 07/13/21 18:59 06:59 18:59 Intake Total 100 Balance 100 Intake: Oral 100 Other: Voiding Method Toilet Toilet Urinal Urinal # Voids 3 1 - Labs CBC & Chem 7: 07/13/21 05:51 07/13/21 05:51 Labs: Abnormal Lab Results - Last 24 Hours (Table) 07/12/21 07/12/21 07/13/21 Range/Units 17:12 21:10 05:51 MCV 100.7 H (80.0-100.0) fL Neutrophils # 8.0 H (1.3-7.7) k/uL Lymphocytes # 0.8 L (1.0-4.8) k/uL Chloride (98-107) mmol/L Carbon Dioxide (22-30) mmol/L Creatinine (0.66-1.25) mg/dL Glucose (74-99) mg/dL POC Glucose (mg/dL) 111 H 213 H (75-99) mg/dL 07/13/21 07/13/21 Range/Units 05:51 07:39 MCV (80.0-100.0) fL Neutrophils # (1.3-7.7) k/uL Lymphocytes # (1.0-4.8) k/uL Chloride 96 L (98-107) mmol/L Carbon Dioxide 35 H (22-30) mmol/L Creatinine 0.65 L (0.66-1.25) mg/dL Glucose 115 H (74-99) mg/dL POC Glucose (mg/dL) 115 H (75-99) mg/dL Microbiology - Last 24 Hours (Table) 07/08/21 10:30 Blood Culture - Preliminary Blood No Growth after 96 hours 07/08/21 10:20 Blood Culture - Preliminary Blood No Growth after 96 hours
[2021-07-14 07:17] LABS: Glucose,Whole Blood 105 mg/dL (75-99)
[2021-07-14] MEDS: SYMBICORT 160-4.5 MCG INHALER INHALATION SCH ×2 (07:46→20:26)
[2021-07-14] MEDS: ASPIRIN 81 MG PO SCH (08:21)
[2021-07-14] MEDS: PANTOPRAZOLE 40 MG TABLET PO SCH (08:21)
[2021-07-14] MEDS: METOPROLOL TARTRATE 25 MG TAB PO SCH (08:21)
[2021-07-14] MEDS: GABAPENTIN 300 MG CAP PO SCH ×3 (08:21→21:08)
[2021-07-14] MEDS: ATORVASTATIN 80 MG TAB PO SCH (08:21)
[2021-07-14] MEDS: methylPREDNISolone SOD SUCCI 40 MG/ML 1 ML VIAL IV SCH ×3 (08:22→23:53)
[2021-07-14] MEDS: PRASUGREL 10 MG TAB PO SCH (08:22)
[2021-07-14] MEDS: HEPARIN SODIUM,PORCINE/PF 5,000 UNIT/0.5 ML SYRINGE SQ SCH ×2 (08:23→21:09)
[2021-07-14] MEDS ORDERED: RX INFO: IV CONTRAST WAS GIVEN 1 EACH MISC MISCELLANE PRN (09:08)
[2021-07-14 12:05] LABS: Glucose,Whole Blood 90 mg/dL (75-99)
--- NOTE | 2021-07-14 13:31 | P.PN ---
<Betsy Mccormick M - Last Filed: 07/14/21 13:25> Subjective Progress Note Date: 07/14/21 Principal diagnosis: Shortness of breath 07/10/2021, the patient is feeling slightly less short of breath compared to yesterday. No significant cough. No sputum production. The chest remains congested. He was Hospital as yesterday for an acute COPD exacerbation. He was also seen in consultation. He was started on Ventolin about treatments around the clock, he is also on Symbicort as maintenance regarding his COPD. He is also on IV Solu Medrol 60 mg every 6 hours. He was given IV Rocephin as an empiric antibiotic coverage. He takes an Anoro Ellipta in combination with Symbicort outpatient basis as maintenance regarding COPD. The blood work from today shows a white second of 16.4 with a hemoglobin 13.8. Electrodes are all within normal limits. Blood sugars nonelevated. On 07/11/2021 patient seen in follow-up. Patient states he is feeling better, he remains on 2 L of oxygen his pulse ox is 94%, he remains on Solu-Medrol, Rocephin, nebulized bronchodilators, lung sounds are positive for prolonged expiratory phase, wheezing. But overall improved. He is coughing up some clear -colored phlegm. No fever or chills. Short of breath with exertion, but has been able to ambulate to the bathroom. On 07/12/2021 patient seen in follow-up on medical surgical floor. He states he is improving, he states he is about 40% improved since his admission in terms of his dyspnea, wheezing and coughing. Still sounds tight and wheezy on today's exam, he continues on empiric antibiotics, IV steroids, breathing treatments. He is tolerating ambulation to the bathroom, he was able to take a shower. Feeling better, no acute events overnight On 07/13/2021 patient seen in follow-up on medical surgical floor, he states he doesn't feel much improvement in his breathing since he came in, although yesterday he thought he was about 40% improved. He remains on 2 L of oxygen his pulse ox is 92-96%, breathing comfortably at rest, does not appear to be in any acute distress, occasional cough, and occasional production of whitish colored phlegm, no fever overnight, vital signs have been stable, he remains on DuoNeb nebulized treatments, remains on Symbicort is on empiric antibiotics in the form of Rocephin, he is on Robitussin cough syrup, and IV steroids at 60 mg every 6 hours. Today's labs have been reviewed, white blood cell count is 9.3, hemoglobin is 16.5, sodium is 137, potassium is 4.8, chloride is 96, CO2 35, BUN is 18, creatinine 0.65. His blood and sputum cultures have been negative. Mildly expiratory wheezing, but no acute distress, overall diminished breath sounds bilaterally. On 07/14/2021 patient seen in follow-up on medical surgical floor. He states he is improving, he feels about 30-40% improved, his cough and shortness of breath are improving, he remains on 2 L of oxygen and his pulse ox is 97%. He is tolerating activity better, he remains on IV Solu-Medrol 60 every 6 hours, empiric antibiotics with Rocephin, and nebulized and inhaled bronchodilators, his had no acute events overnight. Objective - Vital Signs Vital signs: Vital Signs Temp 98.3 F 07/14/21 12:54 Pulse 71 07/14/21 12:54 Resp 16 07/14/21 12:54 BP 116/77 07/14/21 12:54 Pulse Ox 94 L 07/14/21 12:54 Intake & Output 07/13/21 07/14/21 07/14/21 18:59 06:59 18:59 Intake Total 50 800 Balance 50 800 Intake: Intake, IV Titration 50 Amount cefTRIAXone 1 gm In 50 Sodium Chloride 0.9% 50 ml @ 100 mls/hr IVPB Q24HR [facility] Rx#:[id number] Oral 800 Other: Voiding Method Toilet Toilet Urinal Urinal # Voids 1 - Exam GENERAL EXAM: Alert, very pleasant, 59 white male, on 2 L of oxygen pulse ox of 94%, comfortable in no apparent distress. HEAD: Normocephalic/atraumatic. EYES: Normal reaction of pupils, equal size. Conjunctiva pink, sclera white. NOSE: Clear with pink turbinates. THROAT: No erythema or exudates. NECK: No masses, no JVD, no thyroid enlargement, no adenopathy. CHEST: No chest wall deformity. Symmetrical expansion. LUNGS: Equal air entry with expiratory wheezing, prolonged expiratory phase CVS: Regular rate and rhythm, normal S1 and S2, no gallops, no murmurs, no rubs ABDOMEN: Soft, nontender. No hepatosplenomegaly, normal bowel sounds, no guarding or rigidity. EXTREMITIES: No clubbing, no edema, no cyanosis, 2+ pulses and upper and lower extremities. MUSCULOSKELETAL: Muscle strength and tone normal. SPINE: No scoliosis or deformity SKIN: No rashes CENTRAL NERVOUS SYSTEM: Alert and oriented -3. No focal deficits, tone is normal in all 4 extremities. PSYCHIATRIC: Alert and oriented -3. Appropriate affect. Intact judgment and insight. - Labs CBC & Chem 7: 07/13/21 05:51 07/13/21 05:51 Labs: Abnormal Lab Results - Last 24 Hours (Table) 07/13/21 07/13/21 07/14/21 Range/Units 17:14 20:43 07:15 POC Glucose (mg/dL) 114 H 130 H 105 H (75-99) mg/dL Microbiology - Last 24 Hours (Table) 07/08/21 10:30 Blood Culture - Final Blood No Growth after 144 hours 07/08/21 10:20 Blood Culture - Final Blood No Growth after 144 hours Assessment and Plan Plan: Assessment: #1. Acute exacerbation of COPD with failed outpatient treatment, increased dyspnea, cough, chest tightness and wheezing. Chest x-ray showed emphysema without acute pulmonary infiltrates. Patient is status post complete COVID 19th vaccination, and COVID-19 patient was negative #2. Dyspnea and wheezing relates the above #3. Coronary artery disease with previous stenting of the LAD 2 and RCA #4. Chronic atrial fibrillation #5. Remote history of DVT #6. History of GI bleeding #7. Current smoker, currently down to 5 cigarettes a day #8. Peripheral vascular disease #9. History of alcoholism #10. History of pneumothorax #11. History of advanced COPD with most recent FEV1 of 62% of predicted based on the FEV1 from 2019, which has significantly improved with medical treatment from the baseline FEV1 of 27% of predicted and cutting back on smoking Plan: Continue current medical treatment Vital signs are stable Patient is feeling better today, and we'll try to wean the oxygen off Increase activity as tolerated We'll obtain CT of the chest without contrast We'll continue with current medical treatment If continues to improve and remained stable, we may consider discharge home in the next 24 hours This was discussed with the patient and he is in agreement. Patient was reassured Patient was also advised to continue to attempt to quit smoking I have personally seen and examined the patient, performed the documentation and the assessment and plan as written. Number of minutes spent on the visit: [10] Time with Patient: Less than 30 <Jass Nelson - Last Filed: 07/14/21 15:30> Objective - Vital Signs Vital signs: Vital Signs Temp 98.3 F 07/14/21 12:54 Pulse 71 07/14/21 12:54 Resp 16 07/14/21 12:54 BP 116/77 07/14/21 12:54 Pulse Ox 94 L 07/14/21 12:54 Intake & Output 07/13/21 07/14/21 07/14/21 18:59 06:59 18:59 Intake Total 50 800 Balance 50 800 Intake: Intake, IV Titration 50 Amount cefTRIAXone 1 gm In 50 Sodium Chloride 0.9% 50 ml @ 100 mls/hr IVPB Q24HR [facility] Rx#:[id number] Oral 800 Other: Voiding Method Toilet Toilet Urinal Urinal # Voids 1 - Labs CBC & Chem 7: 07/13/21 05:51 07/13/21 05:51 Labs: Abnormal Lab Results - Last 24 Hours (Table) 07/13/21 07/13/21 07/14/21 Range/Units 17:14 20:43 07:15 POC Glucose (mg/dL) 114 H 130 H 105 H (75-99) mg/dL Microbiology - Last 24 Hours (Table) 07/08/21 10:30 Blood Culture - Final Blood No Growth after 144 hours 07/08/21 10:20 Blood Culture - Final Blood No Growth after 144 hours Assessment and Plan Plan: I have personally seen and examined the patient and reviewed the documentation. I performed a joint evaluation with the nurse practitioner in this evaluation was done more than 20 minutes. I fully agree with the documentation above and the plan of care.
--- NOTE | 2021-07-14 15:37 | CT ---
EXAMINATION TYPE: CT chest w con DATE OF EXAM: 07/14/2021 COMPARISON: CT dated 03/04/2020 HISTORY: Shortness of breath. CT DLP: 211.2 mGycm Automated exposure control for dose reduction was used. TECHNIQUE: CT scan of the chest is performed with IV Contrast, patient injected with 100ml mL of Isovue 300. FINDINGS: LUNGS: Severe COPD changes with emphysematous changes, right upper lung scarring, traction bronchiect asis and fibrotic changes, stable compared to the previous. Newly seen areas of bronchial impaction i n the left lower lobe bronchi. Milder segments of bronchial impaction are seen in the right lower lob e bronchi. Bronchial wall thickening which may suggest bronchitis. No definite new lung lesion or nod ule. No star area of consolidation. No pleural effusion. Patent trachea and main bronchi. 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 No gross cardiomegaly. Coronary arterial atherosclerotic calcifications. No pathologi hedy enlarged lymph nodes in the chest. The ascending aorta measures 3.8 cm. The pulmonary trunk stefan sures 2.5 cm. OTHER: Gastric fundus diverticulum. Severe fecal loading of the visualized portion of the colon. Lef t hepatic lobe cyst. No aggressive bone lesion. IMPRESSION: Advanced COPD changes and emphysematous changes as described above. Segments of bronchial impaction i n the lower lobe bronchi more on the left side. No star area of pulmonary consolidation. No major or central pulmonary embolism. No pneumothorax. Incidental findings as described above.
[2021-07-14 17:52] LABS: Glucose,Whole Blood 161 mg/dL (75-99)
[2021-07-14 20:11] LABS: Glucose,Whole Blood 130 mg/dL (75-99)
[2021-07-15] MEDS: IPRATROPIUM-ALBUTEROL 3 ML NEB INHALATION SCH ×3 (04:23→11:32)
[2021-07-15 07:54] LABS: Glucose,Whole Blood 111 mg/dL (75-99)
[2021-07-15] MEDS: SYMBICORT 160-4.5 MCG INHALER INHALATION SCH (07:58)
[2021-07-15] MEDS: ATORVASTATIN 80 MG TAB PO SCH (08:54)
[2021-07-15] MEDS: PRASUGREL 10 MG TAB PO SCH (08:54)
[2021-07-15] MEDS: GABAPENTIN 300 MG CAP PO SCH (08:54)
[2021-07-15] MEDS: PANTOPRAZOLE 40 MG TABLET PO SCH (08:54)
[2021-07-15] MEDS: ASPIRIN 81 MG PO SCH (08:54)
[2021-07-15] MEDS: METOPROLOL TARTRATE 25 MG TAB PO SCH (08:54)
[2021-07-15] MEDS: HEPARIN SODIUM,PORCINE/PF 5,000 UNIT/0.5 ML SYRINGE SQ SCH (08:54)
[2021-07-15] MEDS: methylPREDNISolone SOD SUCCI 40 MG/ML 1 ML VIAL IV SCH (08:55)
[2021-07-15] MEDS: ACETAMINOPHEN TAB 325 MG TAB PO PRN (09:04)
[2021-07-15 11:44] LABS: Basophils # (A) 0.05 X 10*3/uL (0.00-0.10); Basophils % (A) 0.4 %; Eosinophils # (A) 0 X 10*3/uL (0.04-0.35); Eosinophils % (A) 0 %; HGB 14.7 g/dL (13.0-17.0); Immature Grans, Automated 1.2 %; Lymphocytes # (A) 0.87 X 10*3/uL (0.90-5.00); Lymphocytes % (A) 7.7 %; MCH 31.3 pg (27.0-32.0); MCHC 32.7 g/dL (32.0-37.0); MCV 95.9 fL (80.0-97.0); Mean Platelet Volume 9.3 fL (9.5-12.2); Monocytes # (A) 0.73 X 10*3/uL (0.20-1.00); Monocytes % (A) 6.5 %; NRBC Per 100 WBC 0 /100 WBCS (0.0-0.0); Neutrophils # (A) 9.52 X 10*3/uL (1.80-7.70); Neutrophils % (A) 84.2 %; Platelet Count 339 X 10*3/uL (140-440); RBC 4.69 X 10*6/uL (4.40-5.60); RDW 14.4 % (11.5-14.5); WBC 11.31 X 10*3/uL (4.50-10.00)
[2021-07-15 12:14] LABS: Glucose,Whole Blood 79 mg/dL (75-99)
--- NOTE | 2021-07-15 13:01 | P.PN ---
<Zafar,Jeanette - Last Filed: 07/15/21 12:56> Subjective Progress Note Date: 07/15/21 07/10/2021, the patient is feeling slightly less short of breath compared to yesterday. No significant cough. No sputum production. The chest remains congested. He was Hospital as yesterday for an acute COPD exacerbation. He was also seen in consultation. He was started on Ventolin about treatments around the clock, he is also on Symbicort as maintenance regarding his COPD. He is also on IV Solu Medrol 60 mg every 6 hours. He was given IV Rocephin as an empiric antibiotic coverage. He takes an Anoro Ellipta in combination with Symbicort outpatient basis as maintenance regarding COPD. The blood work from today shows a white second of 16.4 with a hemoglobin 13.8. Electrodes are all within normal limits. Blood sugars nonelevated. On 07/11/2021 patient seen in follow-up. Patient states he is feeling better, he remains on 2 L of oxygen his pulse ox is 94%, he remains on Solu-Medrol, Rocephin, nebulized bronchodilators, lung sounds are positive for prolonged expiratory phase, wheezing. But overall improved. He is coughing up some clear-colored phlegm. No fever or chills. Short of breath with exertion, but h as been able to ambulate to the bathroom. On 07/12/2021 patient seen in follow-up on medical surgical floor. He states he is improving, he states he is about 40% improved since his admission in terms of his dyspnea, wheezing and coughing. Still sounds tight and wheezy on today's exam, he continues on empiric antibiotics, IV steroids, breathing treatments. He is tolerating ambulation to the bathroom, he was able to take a shower. Feeling better, no acute events overnight On 07/13/2021 patient seen in follow-up on medical surgical floor, he states he doesn't feel much improvement in his breathing since he came in, although yesterday he thought he was about 40% improved. He remains on 2 L of oxygen his pulse ox is 92-96%, breathing comfortably at rest, does not appear to be in any acute distress, occasional cough, and occasional production of whitish colored phlegm, no fever overnight, vital signs have been stable, he remains on DuoNeb nebulized treatments, remains on Symbicort is on empiric antibiotics in the form of Rocephin, he is on Robitussin cough syrup, and IV steroids at 60 mg every 6 hours. Today's labs have been reviewed, white blood cell count is 9.3, hemoglobin is 16.5, sodium is 137, potassium is 4.8, chloride is 96, CO2 35, BUN is 18, creatinine 0.65. His blood and sputum cultures have been negative. Mildly expiratory wheezing, but no acute distress, overall diminished breath sounds bilaterally. On 07/14/2021 patient seen in follow-up on medical surgical floor. He states he is improving, he feels about 30-40% improved, his cough and shortness of breath are improving, he remains on 2 L of oxygen and his pulse ox is 97%. He is tolerating activity better, he remains on IV Solu-Medrol 60 every 6 hours, empiric antibiotics with Rocephin, and nebulized and inhaled bronchodilators, his had no acute events overnight. The patient is seen today 07/15/2021 in follow-up on the regular medical floor. He is currently sitting up in bed. Awake and alert in no acute distress. No worsening shortness of breath, cough or congestion. He is maintaining good O2 saturations in the 90s on 2 L/m per nasal cannula. Computed tomography scan of the chest revealed advanced COPD changes with emphysematous changes, right upper lobe scarring, traction bronchiectasis and fibrotic changes. Segments of bronchial impaction lower lobe bronchi more so on the left. Star no star areas of pulmonary consolidation. No major central pulmonary embolism. No pneumothorax. He is continued on Symbicort, DuoNeb inhalations, IV Solu-Medrol. Objective - Vital Signs Vital signs: Vital Signs Temp 97.7 F 07/15/21 04:32 Pulse 76 07/15/21 11:43 Resp 18 07/15/21 04:32 BP 115/72 07/15/21 08:56 Pulse Ox 99 07/15/21 04:32 Intake & Output 07/14/21 07/15/21 07/15/21 18:59 06:59 18:59 Intake Total 100 600 Balance 100 600 Intake: Intake, IV Titration 100 Amount cefTRIAXone 1 gm In 100 Sodium Chloride 0.9% 50 ml @ 100 mls/hr IVPB Q24HR [facility] Rx#:[id number] Oral 600 Other: Voiding Method Toilet Urinal # Voids 2 - Exam GENERAL EXAM: Alert, very pleasant, 59 white male, on 2 L of oxygen pulse ox of 99%, comfortable in no apparent distress. HEAD: Normocephalic/atraumatic. EYES: Normal reaction of pupils, equal size. Conjunctiva pink, sclera white. NOSE: Clear with pink turbinates. THROAT: No erythema or exudates. NECK: No masses, no JVD, no thyroid enlargement, no adenopathy. CHEST: No chest wall deformity. Symmetrical expansion. LUNGS: Equal air entry with expiratory wheezing, prolonged expiratory phase and diminished CVS: Regular rate and rhythm, normal S1 and S2, no gallops, no murmurs, no rubs ABDOMEN: Soft, nontender. No hepatosplenomegaly, normal bowel sounds, no guarding or rigidity. EXTREMITIES: No clubbing, no edema, no cyanosis, 2+ pulses and upper and lower extremities. MUSCULOSKELETAL: Muscle strength and tone normal. SPINE: No scoliosis or deformity SKIN: No rashes CENTRAL NERVOUS SYSTEM: No focal deficits, tone is normal in all 4 extremities. PSYCHIATRIC: Alert and oriented -3. Appropriate affect. Intact judgment and insight. - Labs CBC & Chem 7: 07/15/21 06:19 07/13/21 05:51 Labs: Abnormal Lab Results - Last 24 Hours (Table) 07/14/21 07/14/21 07/15/21 Range/Units 17:46 20:10 06:19 WBC 11.31 H (4.50-10.00) X 10*3/uL MPV 9.3 L (9.5-12.2) fL Immature Gran # 0.14 H (0.00-0.04) X 10*3/uL Neutrophils # 9.52 H (1.80-7.70) X 10*3/uL Lymphocytes # 0.87 L (0.90-5.00) X 10*3/uL Eosinophils # 0 L (0.04-0.35) X 10*3/uL POC Glucose (mg/dL) 161 H 130 H (75-99) mg/dL 07/15/21 Range/Units 07:53 WBC (4.50-10.00) X 10*3/uL MPV (9.5-12.2) fL Immature Gran # (0.00-0.04) X 10*3/uL Neutrophils # (1.80-7.70) X 10*3/uL Lymphocytes # (0.90-5.00) X 10*3/uL Eosinophils # (0.04-0.35) X 10*3/uL POC Glucose (mg/dL) 111 H (75-99) mg/dL Microbiology - Last 24 Hours (Table) 07/08/21 10:30 Blood Culture - Final Blood No Growth after 144 hours 07/08/21 10:20 Blood Culture - Final Blood No Growth after 144 hours Assessment and Plan Assessment: 1 Acute exacerbation of COPD with failed outpatient treatment, increased dyspnea, cough, chest tightness and wheezing. Chest x-ray showed emphysema without acute pulmonary infiltrates. Patient is status post complete COVID 19th vaccination, and COVID-19 patient was negative 2 Dyspnea and wheezing relates the above 3 Coronary artery disease with previous stenting of the LAD 2 and RCA 4 Chronic atrial fibrillation 5 Remote history of DVT 6 History of GI bleeding 7 Current smoker, currently down to 5 cigarettes a day 8 Peripheral vascular disease 9 History of alcoholism 10 History of pneumothorax 11 History of advanced COPD with most recent FEV1 of 62% of predicted based on the FEV1 from 2020, which has significantly improved with medical treatment from the baseline FEV1 of 27% of predicted and cutting back on smoking Plan: The patient was seen and evaluated Computed tomography scan results were reviewed with the patient in detail Stable for discharge from the pulmonary standpoint May qualify for home oxygen Educated regarding the importance of complete smoking cessation Tinea NicoDerm patches Continue bronchodilators Follow-up in the office in 1-2 weeks' I, the cosigning physician, performed a history & physical examination of the patient. Lungs sounds faint end expiratory wheeze, diminished. Maintaining good O2 saturations in the 90s on 2 L/m per nasal cannula. I discussed the assessment and plan of care with my nurse practitioner, Jeanette Stephen. I attest to the above note as dictated by her. I have personally seen and examined the patient, performed the documentation and the assessment and plan as written. Number of minutes spent on the visit: 10. <Jass Nelson - Last Filed: 07/15/21 14:44> Objective - Vital Signs Vital signs: Vital Signs Temp 98.7 F 07/15/21 12:08 Pulse 75 07/15/21 12:08 Resp 16 07/15/21 12:08 BP 115/74 07/15/21 12:08 Pulse Ox 94 L 07/15/21 12:08 Intake & Output 07/14/21 07/15/21 07/15/21 18:59 06:59 18:59 Intake Total 100 600 Balance 100 600 Intake: Intake, IV Titration 100 Amount cefTRIAXone 1 gm In 100 Sodium Chloride 0.9% 50 ml @ 100 mls/hr IVPB Q24HR [facility] Rx#:[id number] Oral 600 Other: Voiding Method Toilet Urinal # Voids 2 - Labs CBC & Chem 7: 07/15/21 06:19 07/13/21 05:51 Labs: Abnormal Lab Results - Last 24 Hours (Table) 07/14/21 07/14/21 07/15/21 Range/Units 17:46 20:10 06:19 WBC 11.31 H (4.50-10.00) X 10*3/uL MPV 9.3 L (9.5-12.2) fL Immature Gran # 0.14 H (0.00-0.04) X 10*3/uL Neutrophils # 9.52 H (1.80-7.70) X 10*3/uL Lymphocytes # 0.87 L (0.90-5.00) X 10*3/uL Eosinophils # 0 L (0.04-0.35) X 10*3/uL POC Glucose (mg/dL) 161 H 130 H (75-99) mg/dL 07/15/21 Range/Units 07:53 WBC (4.50-10.00) X 10*3/uL MPV (9.5-12.2) fL Immature Gran # (0.00-0.04) X 10*3/uL Neutrophils # (1.80-7.70) X 10*3/uL Lymphocytes # (0.90-5.00) X 10*3/uL Eosinophils # (0.04-0.35) X 10*3/uL POC Glucose (mg/dL) 111 H (75-99) mg/dL Microbiology - Last 24 Hours (Table) 07/08/21 10:30 Blood Culture - Final Blood No Growth after 144 hours 07/08/21 10:20 Blood Culture - Final Blood No Growth after 144 hours Assessment and Plan Assessment: I have personally seen and examined the patient and reviewed the documentation. I performed a joint evaluation with the nurse practitioner in this evaluation was done more than15 minutes. I fully agree with the documentation above and the plan of care.
[2021-07-15 13:28] VITALS: BP 115/74; PULSE 75; RESP 16; TEMP 98.7
== END 2021-07-15 14:35 | disposition home or self-care (01) | DRG 190 ==
LOC: EC 09:31 → 5NMEDONC 12:33
PROVIDERS: ADMIT Internal Medicine; ATTEND Internal Medicine
DX: J43.9 Emphysema, unspecified (principal); J96.01 Acute respiratory failure with hypoxia; E87.1 Hypo-osmolality and hyponatremia; J20.9 Acute bronchitis, unspecified; Z20.822 Contact with and (suspected) exposure to COVID-19; E86.1 Hypovolemia; F17.210 Nicotine dependence, cigarettes, uncomplicated; F32.A Depression, unspecified; F41.9 Anxiety disorder, unspecified; G47.30 Sleep apnea, unspecified; I10 Essential (primary) hypertension; I25.10 Atherosclerotic heart disease of native coronary artery without angina pectoris; I48.0 Paroxysmal atrial fibrillation; F10.21 Alcohol dependence, in remission; I73.9 Peripheral vascular disease, unspecified; K21.9 Gastro-esophageal reflux disease without esophagitis; M19.90 Unspecified osteoarthritis, unspecified site; Z79.02 Long term (current) use of antithrombotics/antiplatelets; Z79.51 Long term (current) use of inhaled steroids; Z79.52 Long term (current) use of systemic steroids; Z79.82 Long term (current) use of aspirin; Z79.899 Other long term (current) drug therapy; Z82.3 Family history of stroke; Z82.49 Family history of ischemic heart disease and other diseases of the circulatory system; Z83.3 Family history of diabetes mellitus; Z86.718 Personal history of other venous thrombosis and embolism; Z95.5 Presence of coronary angioplasty implant and graft
CPT/HCPCS: 36415; 71046; 71260; 80048; 80053; 83605; 83735; 83880; 84484; 85025; 87040; 87070; 87205; 87635; 93005; 94640; 94667; 94668; 94760; 96365; 96375; 99285

== ENCOUNTER 2021-12-19 09:09 | Day surgery (SDC) | payer MEDICARE, OTHER ==
[2021-12-15 12:41] VITALS: BMI 21.5
[~2021-12-19 09:09] MED LIST changes: -ALPRAZolam 0.25 MG TAB PO PRN; -ALPRAZolam 0.5 MG TAB PO PRN; -ASPIRIN 325 MG TAB PO STA; -HEPARIN SODIUM,PORCINE 10,000 UNIT in SODIUM CHLORIDE 0.9% 1,000 ML IRRIGATION PRN; -HEPARIN SODIUM,PORCINE 2,500 UNIT in SODIUM CHLORIDE 0.9% 250 ML IRRIGATION PRN; +LACTATED RINGERS 1,000 ML IV SCH; +LIDOCAINE 1% (10MG/ML) FOR IV START INTRADERMA PRN; -NITROGLYCERIN SL TABS 0.4 MG TAB SUBLINGUAL PRN
[2021-12-19 09:47] VITALS: TEMP 97.7
[2021-12-19 09:52] LABS: Glucose,Whole Blood 96 mg/dL (70-110)
[2021-12-19] MEDS ORDERED: PROPOFOL 10 MG/ML 20 ML VIAL IV ONE (10:41)
[2021-12-19] MEDS ORDERED: LIDOCAINE 2% INJ 20 MG/ML (2 ML VIAL) ONE (10:41)
--- NOTE | 2021-12-19 11:02 | P.PCN ---
Date of Procedure: 12/19/21 Procedure(s) Performed: BRIEF HISTORY: Patient is a 61-year-old pleasant white male scheduled for an elective colonoscopy as a part of screening for colorectal neoplasia. PROCEDURE PERFORMED: Colonoscopy with snare polypectomy. PREOPERATIVE DIAGNOSIS: Screening for colon cancer. IV sedation per Anesthesia. PROCEDURE: After informed consent was obtained, the patient, was brought into the endoscopy unit. IV sedation was administered by Anesthesia under continuous monitoring. Digital rectal examination was normal. Initially the Olympus CF-160 flexible video colonoscope was then inserted in the rectum, gradually advanced into the cecum without any difficulty. Careful examination was performed as the scope was gradually being withdrawn. Ileocecal valve and the appendiceal orifice were visualized and appeared normal. Prep was poor and several areas of the. Mucosa of the cecum, appeared normal. In the ascending colon there was a 1.5 segment of flat polyp that was removed by snare polypectomy. Rest of the ascending colon, transverse colon, descending colon, sigmoid colon, and rectum appeared normal. Sigmoid: There was a 5 mm and 6 polyps removed by snare polypectomy. Scattered sigmoid diverticulosis seen. Retroflexion was performed in the rectum and no lesions were seen. The patient tolerated the procedure well. IMPRESSION: 1.5 cm flat ascending colon polyp status post polypectomy 5 mm sessile distal sigmoid colon polyp x2 status post snare polypectomy Scattered sigmoid diverticulosis RECOMMENDATIONS: Findings of this examination were discussed with the patient as well as his family.. He was advised to follow with the biopsy results. If the biopsies adenoma he can have a repeat colonoscopy in 3 years.
[2021-12-19 11:28] VITALS: BP 114/75; PULSE 77; RESP 16
== END 2021-12-19 11:50 | disposition home or self-care (01) ==
LOC: ORWHC2ENDO 09:09
PROVIDERS: ATTEND Internal Medicine Gastroenterology
DX: Z12.11 Encounter for screening for malignant neoplasm of colon (principal); D12.2 Benign neoplasm of ascending colon; D12.5 Benign neoplasm of sigmoid colon; K57.30 Diverticulosis of large intestine without perforation or abscess without bleeding; I25.10 Atherosclerotic heart disease of native coronary artery without angina pectoris; I48.91 Unspecified atrial fibrillation; I10 Essential (primary) hypertension; E78.5 Hyperlipidemia, unspecified; Z95.5 Presence of coronary angioplasty implant and graft; I73.9 Peripheral vascular disease, unspecified; J44.9 Chronic obstructive pulmonary disease, unspecified; F17.200 Nicotine dependence, unspecified, uncomplicated; G47.33 Obstructive sleep apnea (adult) (pediatric); K21.9 Gastro-esophageal reflux disease without esophagitis; Z79.82 Long term (current) use of aspirin; Z79.899 Other long term (current) drug therapy; Z79.01 Long term (current) use of anticoagulants; Z79.51 Long term (current) use of inhaled steroids; Z82.49 Family history of ischemic heart disease and other diseases of the circulatory system; Z83.3 Family history of diabetes mellitus; Z82.3 Family history of stroke
CPT/HCPCS: 88305; 45385; J2704; J2001

== ENCOUNTER 2022-03-01 16:34 | Emergency (ER) | payer MEDICARE, OTHER ==
[2022-03-01 17:05] VITALS: TEMP 98.3
[2022-03-01] MEDS ORDERED: SULFAMETHOX-TMP 800-160MG 1 EACH TAB PO STA (17:06)
[2022-03-01] MEDS ORDERED: CEPHALEXIN 500 MG CAP PO STA (17:06)
[2022-03-01] MEDS ORDERED: LIDOCAINE 1% INJ 10MG/ML (20 ML MDV) SQ ONE ×2 (17:06→17:37)
[2022-03-01] MEDS ORDERED: LIDOCAINE 1% INJ 10MG/ML (5 ML VIAL-PF) SQ ONE (17:30)
[2022-03-01] MEDS ORDERED: KETOROLAC 15 MG/ML 1 ML VIAL IM STA (17:42)
--- NOTE | 2022-03-01 17:57 | ED ---
Skin/Abscess/FB HPI - General Chief complaint: Skin/Abscess/Foreign Body Stated complaint: ABSCESS Time Seen by Provider: 03/01/22 17:05 Source: EMS Mode of arrival: EMS Limitations: no limitations - History of Present Illness Initial comments: Patient is a 61-year-old male who presents to the emergency department with a chief complaint of left armpit abscess. Patient was sent in by his primary care provider. States he noticed the abscess one week ago which is been getting bigger. Patient has history of abscess, one in the same location. Denies h istory of MRSA. Denies fever and chills. - Related Data Home Medications Medication Instructions Recorded Confirmed Albuterol Sulfate [Ventolin HFA] 2 puff INHALATION RT-Q6H PRN 11/13/14 12/15/21 Metoprolol Tartrate 25 mg PO QAM 07/27/15 12/15/21 Multivitamin [Men's Multi-Vitamin] 1 tab PO DAILY 08/30/15 12/15/21 Gabapentin 300 mg PO TID 03/21/16 12/15/21 Aspirin [Adult Low Dose Aspirin EC] 81 mg PO DAILY 05/07/19 12/15/21 Atorvastatin [Lipitor] 40 mg PO DAILY 04/18/21 12/15/21 Albuterol Nebulized [Ventolin 2.5 mg INHALATION TID 12/15/21 12/15/21 Nebulized] Fluticasone/Umeclidin/Vilanter 1 inhalation INHALATION QAM 12/15/21 12/19/21 [Trelegy Ellipta 100-62.5-25] Pantoprazole Sodium 20 mg PO QAM 12/15/21 12/15/21 Previous Rx's Medication Instructions Recorded Prasugrel [Effient] 10 mg PO DAILY #90 tablet 04/19/21 Cephalexin [Keflex] 500 mg PO Q6HR 5 Days #20 cap 03/01/22 Sulfamethox-Tmp 800-160Mg [Bactrim 1 tab PO Q12HR 5 Days #10 tab 03/01/22 DS 800-160 mg] Allergies Allergy/AdvReac Type Severity Reaction Status Date / Time No Known Allergies Allergy Verified 03/01/22 17:05 Review of Systems ROS Statement: Those systems with pertinent positive or pertinent negative responses have been documented in the HPI. ROS Other: All systems not noted in ROS Statement are negative. Past Medical History Past Medical History: Atrial Fibrillation, Coronary Artery Disease (CAD), COPD, Deep Vein Thrombosis (DVT), GERD/Reflux, GI Bleed, Hyperlipidemia, Hypertension, Osteoarthritis (OA), Pneumonia, Sleep Apnea/CPAP/BIPAP Additional Past Medical History / Comment(s): DVT- LEFT LEG, CPAP,steroid November 2021 History of Any Multi-Drug Resistant Organisms: MRSA Date of last positivie culture/infection: 02/18/20 MRSA MDRO Source:: Right Axilla Past Surgical History: Heart Catheterization With Stent, Orthopedic Surgery Additional Past Surgical History / Comment(s): ABD AORTOGRAM. Other SX: (construction accident balcony fell from building)HAD CRUSHING INJURY TO ANKLES HAD FUSION DONE JOSE ALBERTO, LT FOOT TOE PARTIAL AMP. CHEST TUBE FOR PNEUMOTHORAX. SURGERY TO REMOVE BLOOD CLOT FROM LEG. Bronchial washings/lavage, EGD. femoral bypass,heart stents x3 Past Anesthesia/Blood Transfusion Reactions: No Reported Reaction Additional Past Anesthesia/Blood Transfusion Reaction / Comment(s): Pt states he has never received blood. Date of Last Stent Placement:: 04/2021 Past Psychological History: Anxiety, Depression Smoking Status: Current some day smoker Past Alcohol Use History: None Reported Past Drug Use History: None Reported - Past Family History Father Family Medical History: Coronary Artery Disease (CAD), Diabetes Mellitus, Myocardial Infarction ([place]), Pulmonary Embolus Additional Family Medical History / Comment(s): PE Mother Family Medical History: CVA/TIA General Exam Limitations: no limitations General appearance: alert, in no apparent distress Respiratory exam: Present: normal lung sounds bilaterally. Absent: respiratory distress, wheezes, rales, rhonchi, stridor Cardiovascular Exam: Present: regular rate, normal rhythm, normal heart sounds. Absent: systolic murmur, diastolic murmur, rubs, gallop, clicks Extremities exam: Present: other (6 by 4 cm abscess in left axilla with cellulitis inferiorly and anteriorly ) Neurological exam: Present: alert, oriented X3, CN II-XII intact Psychiatric exam: Present: normal affect, normal mood Skin exam: Present: warm, dry, intact, normal color. Absent: rash Course Vital Signs 03/01/22 03/01/22 17:00 18:49 Temperature 98.3 F Pulse Rate 91 90 Respiratory 16 18 Rate Blood Pressure 123/92 111/73 O2 Sat by Pulse 95 97 Oximetry Procedures - Incision & Drainage Consent Obtained: verbal consent Site: other (left axilla) Anesthetic Used: lidocaine 1% I&D Cleaning Method: Betadine Sterile Field Used?: Yes Scalpel Used: #11 I&D Drainage Obtained: Pus, Blood Packing: Iodoform Culture Obtained?: Yes Patient Tolerated Procedure: well, no complications Medical Decision Making - Medical Decision Making This is a 61-year-old male presenting with abscess. There is a 6 by 4 cm abscess in left axilla with cellulitis inferiorly and anteriorly. Afebrile. No chills. The abscess was drained with significant output of purulent fluid. It was packed with iodoform packing. Abscess education discussed in detail. Bactrim and Keflex given in the emergency department. Patient will be discharged with these prescriptions for abscess with surrounding cellulitis. Strict return parameters discussed. Dr. Pressley is my attending. Disposition Clinical Impression: Abscess of axilla, left Disposition: HOME SELF-CARE Condition: Good Instructions (If sedation given, give patient instructions): Abscess Incision and Drainage (ED), Abscess (ED) Additional Instructions: Take antibiotic as directed. Please keep packing in as long as possible to keep the pathway for continuous drainage. You may take the packing out when antibiotics are finished. Use warm compress throughout the day to assist drainage. Change dressing every 24 hours or if saturated. Keep wound clean and dry. Wash the wound with a mild soap during dressing change and be sure to dry thoroughly. If you need more dressing supplies or tape you can find some at a local pharmacy. Take Tylenol or Motrin for pain. Follow-up with primary care provider in 1 to 2 days. Return to the emergency department if you experience new, concerning, or worsening symptoms. Prescriptions: Sulfamethox-Tmp 800-160Mg [Bactrim DS 800-160 mg] 1 tab PO Q12HR 5 Days #10 tab Cephalexin [Keflex] 500 mg PO Q6HR 5 Days #20 cap Is patient prescribed a controlled substance at d/c from ED?: No Referrals: Ashlyn Toro MD [Primary Care Provider] - 1-2 days Time of Disposition: 17:57
[2022-03-01 18:51] VITALS: BP 111/73; PULSE 90; RESP 18
== END 2022-03-01 18:51 | disposition home or self-care (01) ==
LOC: EC 16:34
DX: L02.412 Cutaneous abscess of left axilla (principal); I48.91 Unspecified atrial fibrillation; I25.10 Atherosclerotic heart disease of native coronary artery without angina pectoris; Z86.718 Personal history of other venous thrombosis and embolism; K21.9 Gastro-esophageal reflux disease without esophagitis; E78.5 Hyperlipidemia, unspecified; I10 Essential (primary) hypertension; M19.90 Unspecified osteoarthritis, unspecified site; F41.9 Anxiety disorder, unspecified; F32.A Depression, unspecified; F17.200 Nicotine dependence, unspecified, uncomplicated; Z79.82 Long term (current) use of aspirin; Z79.51 Long term (current) use of inhaled steroids; Z79.899 Other long term (current) drug therapy
CPT/HCPCS: 87070; 87205; 87077; 87186; 99283; 96372; 10060; J2001; J1885

== ENCOUNTER → 2022-03-02 | Outpatient (CLI) | payer MEDICARE, OTHER ==
--- NOTE | 2022-03-04 05:39 | MR ---
EXAMINATION TYPE: MR cspine/tspine/lspine wo con DATE OF EXAM: 03/02/2022 COMPARISON: Prior MRI cervical spine April 05, 2015. Prior MRI lumbar spine July 27, 2013. Prior CT chest July 14, 2021 HISTORY: Neck pain, mid back pain, low back pain, history of compression fracture TECHNIQUE: Multiplanar, multisequence imaging of the cervical, thoracic, lumbar spine are all perform ed without IV contrast. FINDINGS: Cervical spine: FINDINGS: Sagittal images of the cervical spine show the craniocervical junction to remain within nor mal limits. The cervical and upper thoracic spinal cord remains normal in caliber and signal. Slight scoliotic curvature on coronal images is redemonstrated. Reversal of normal cervical curvature on sa gittal images centered lower cervical spine is more prominent from prior. Mild height loss involving the C3, C5, and C6 vertebra is now present. There is mild to moderate disc space narrowing at C3-C4 and C5-C6 levels redemonstrated . Moderate to severe disc space narrowing at C6-C7 and C7-T1 levels i s more prominent from prior. There is moderate spurring in the lower cervical spine anteriorly redem onstrated. Heterogeneity with endplate changes in the lower cervical spine again seen. Axial images at the C2-C3 level redemonstrate broad-based left paracentral disc protrusion effacing a nterolateral thecal sac with left-sided uncovertebral facet degenerative changes, this contributes to moderate to advanced left-sided neural foraminal narrowing, there is mild right-sided neural foramin al narrowing. No significant change from prior. Axial images at the C3-C4 level show broad-based posterior disc protrusion effacing anterior thecal s ac with uncovertebral facet degenerative changes, there is advanced right and moderate left-sided ameya ral foraminal narrowing with interval degenerative progression from the 2015 MRI noted. Axial images at the C4-C5 level redemonstrate uncovertebral facet degenerative changes bilaterally. There is small central disc protrusion redemonstrated, there is minimal effacement anterior thecal sa c again seen. There is advanced right and moderate left-sided neural foraminal narrowing redemonstrat ed. No significant interval change. Axial images at the C5-C6 level show broad-based posterior disc protrusion minimally effacing anterio r thecal sac and causing mild left sided neural foraminal narrowing. No significant change from prior . Axial images at the C6-C7 level redemonstrate broad-based posterior disc protrusion effacing anterior thecal sac and causing moderate bilateral neural foraminal narrowing. No significant change from angel luis or. Axial images at the C7-T1 level show broad-based disc protrusion minimally effacing anterior thecal s ac and causing moderate bilateral neural foraminal narrowing. No significant change from prior. IMPRESSION: Scoliosis and reversal of normal cervical curvature redemonstrated. Multilevel degenerati ve changes in cervical spine again seen with further details as noted in body of report. Thoracic spine: FINDINGS: Spinal cord shows normal caliber and signal as it courses the thoracic spine. Slight levoco nvex scoliotic curvature upper thoracic spine. Mild height loss involving the T12 vertebra bone marro w signal intensity fairly well-maintained. Multilevel tiny posterior disc herniations minimally effac e the anterior thecal sac from C7-T1 through the T5-T6 level with additional involvement at T8-T9 lev el and slightly larger disc herniation seen T11-T12 level on sagittal image 10. Mild multilevel ante rior spurring is seen. Review of the axial images shows no significant spinal canal stenosis or neural foraminal narrowing a t any thoracic level. No additional large disc herniation is seen. There is focal scarring or atelec tatic change in the posterior aspect of the right upper lobe near axial image 11 series 1301 incident ally noted. IMPRESSION: Slight scoliotic curvature with fairly mild multilevel degenerative changes as detailed a gretta. Lumbar spine: Sagittal images of the lumbar spine redemonstrate mild height loss involving L5 vertebra. There is de xtroconvex scoliotic curvature centered at the lumbosacral junction be demonstrated. Alignment is sta ble and straightened on the sagittal images. Multilevel disc desiccation with mild disc space narrowi ng and vacuum disc phenomenon L4-L5 level and moderate disc space narrowing and vacuum disc phenomeno n along with mild to moderate anterior spurring and areas of heterogeneous Modic type II endplate jeanna nges L5-S1 level are redemonstrated. The conus medullaris remains stable and normal in position and signal ending mid L1 level. Axial images show T12-L1 level to appear within normal limits. Axial images at L1-L2 level show new mild broad disc bulge minimally effaces the anterior thecal sac. Axial images at L2-L3 level show new mild/moderate broad disc bulge effacing the anterior thecal sac. Patent bilateral neural foramina. Axial images at L3-L4 level show new moderate broad disc bulge effacing the anterior thecal sac and c ausing mild bilateral anterior inferior neural foraminal narrowing. Axial images at L4-L5 level show moderate to advanced broad disc bulge effacing the anterior thecal s ac with left foraminal component causing [id number] anterior inferior neural foraminal narrowin g. There is similar mild to moderate right-sided anterior inferior neural foraminal narrowing. Mild f acet arthropathy bilaterally. No significant change from prior. Axial images at the L5-S1 level shows subtle spondylolisthesis and moderate broad disc bulge. Spinal canal fairly well preserved. There is mild facet arthropathy and ligamentum flavum hypertrophy. There is mild to moderate left-sided anterior inferior neural foraminal narrowing redemonstrated. IMPRESSION: Stable straightened alignment of the lumbar spine with multilevel degenerative changes se en as detailed above. Some interval degenerative progression from 2014 MRI noted.
== END | disposition home or self-care (01) ==
LOC: RADMRIMAIN 17:29
PROVIDERS: ATTEND Nurse Practitioner Family
DX: M47.816 Spondylosis without myelopathy or radiculopathy, lumbar region (principal); M54.6 Pain in thoracic spine; M48.02 Spinal stenosis, cervical region; M43.9 Deforming dorsopathy, unspecified; M41.9 Scoliosis, unspecified; M54.50 Low back pain, unspecified; M54.2 Cervicalgia; Z87.81 Personal history of (healed) traumatic fracture
CPT/HCPCS: 72141; 72146; 72148

== ENCOUNTER 2022-11-14 09:37 | Day surgery (SDC) | payer MEDICARE, OTHER ==
[2022-11-14 11:34] VITALS: PULSE 82; RESP 18; TEMP 96.9
[2022-11-14] MEDS ORDERED: LACTATED RINGERS 1,000 ML IV ONE (11:35)
[2022-11-14] MEDS ORDERED: PROPOFOL 10 MG/ML 20 ML VIAL IV ONE (11:56)
[2022-11-14] MEDS ORDERED: LIDOCAINE 2% INJ 20 MG/ML (2 ML VIAL) ONE (11:56)
--- NOTE | 2022-11-14 12:06 | P.PCN ---
Date of Procedure: 11/14/22 Procedure(s) Performed: BRIEF HISTORY: Patient is a 62-year-old, pleasant, male scheduled for an upper endoscopy as a part of evaluation of intermittent dysphagia to solids for the last few months duration.. He has prior history of esophageal stricture for which he underwent EGD with dilation several years ago. He denies any heartburn. PROCEDURE PERFORMED: Esophagogastroduodenoscopy with biopsy and balloon dilation. PREOPERATIVE DIAGNOSIS: Intermittent dysphagia to solids. IV sedation per anesthesia. PROCEDURE: After informed consent was obtained, the patient was brought into the endoscopy unit. IV sedation was administered by Anesthesia under continuous monitoring. Initially the Olympus GIF-140 video endoscope was inserted into the mouth. Esophagus intubated without any difficulty. It was gradually advanced into the stomach and duodenum and carefully examined. The bulb and the second p art of the duodenum appeared normal. The scope at this time was withdrawn to the stomach, adequately insufflated with air, and upon careful examination, mucosa of the antrum, body, cardia and the fundus appeared normal. The scope was then withdrawn into the esophagus. Small hiatal hernia noted. The GE junction was located at 41 cm from the incisors. There was a distal esophagus which are identified and this was dilated using 18 mm TTS balloon for 30 seconds and following this there was some mucosal tear with oozing identified and hence further dilation was not performed. There was a short segment of Braden's esophagus extending 1 cm proximal to the GE junction which was biopsied. The esophagus appeared normal. There were no erosions or ulcerations seen and the patient tolerated the procedure well. IMPRESSION: 1. Distal esophageal stricture status post balloon dilation using 18 mm TTS balloon as described above. 2. Short segment Braden's esophagus and small hiatal hernia. RECOMMENDATIONS: The findings of this examination were discussed with the patient as well as his family. He was advised to remain on a clear liquid diet today for 2 hours. Recommend omeprazole 20 mg daily and follow antireflux measures.
[2022-11-14 12:17] VITALS: BP 103/64
== END 2022-11-14 13:05 ==
LOC: ORWHC2ENDO 09:37
PROVIDERS: ATTEND Internal Medicine Gastroenterology
DX: K29.50 Unspecified chronic gastritis without bleeding (principal); K22.70 Barrett's esophagus without dysplasia; K21.9 Gastro-esophageal reflux disease without esophagitis; K44.9 Diaphragmatic hernia without obstruction or gangrene; I25.10 Atherosclerotic heart disease of native coronary artery without angina pectoris; E78.5 Hyperlipidemia, unspecified; I10 Essential (primary) hypertension; Z95.5 Presence of coronary angioplasty implant and graft; Z98.890 Other specified postprocedural states; Z79.899 Other long term (current) drug therapy; Z79.82 Long term (current) use of aspirin
CPT/HCPCS: 43239; 43249; J2704; J2001; C1726; 88305

== ENCOUNTER → 2022-12-14 | Outpatient (CLI) | payer MEDICARE, OTHER ==
[2022-12-14 16:06] LABS: HCT 44.1 % (39.6-50.0); HGB 14.6 d/dL (13.0-17.0); MCH 30.7 pg (27.0-32.0); MCHC 33.1 d/dL (32.0-37.0); MCV 92.6 FL (80.0-97.0); Mean Platelet Volume 10.7 FL (9.5-12.2); NRBC Per 100 WBC 0 X 10*3/uL (0.00-0.01); Platelet Count 248 X 10*3/uL (140-440); RBC 4.76 X 10*6/uL (4.40-5.60); RDW 13.3 % (11.5-14.5); WBC 6.06 X 10*3/uL (4.50-10.00)
[2022-12-14 17:37] LABS: Blood Urea Nitrogen 4.5 mg/dL (9.0-27.0); Carbon Dioxide 23.4 mmol/L (21.6-31.8); Chloride 97 mmol/L (96-109); Potassium 3.9 mmol/L (3.5-5.5); Sodium 131 mmol/L (135-145)
== END | disposition home or self-care (01) ==
LOC: LABWHC1 10:06
PROVIDERS: ATTEND Internal Medicine Interventional Cardiology
DX: Z01.812 Encounter for preprocedural laboratory examination (principal); R07.9 Chest pain, unspecified
CPT/HCPCS: 36415; 80051; 82565; 84520; 85027

== ENCOUNTER → 2022-12-17 | Day surgery (SDC) | payer MEDICARE, OTHER ==
[~2022-12-17] MED LIST changes: +ALPRAZolam 0.25 MG TAB PO PRN; +ALPRAZolam 0.5 MG TAB PO PRN; +ASPIRIN 325 MG TAB PO STA; +ATORVASTATIN 80 MG TAB PO STA; +HEPARIN SODIUM 1,000 UN/ML (10ML VL) IV ONE; +HEPARIN SODIUM 1,000 UN/ML (10ML VL) ONE; +HEPARIN SODIUM,PORCINE (1 ML) 2,500 UNIT in SODIUM CHLORIDE 0.9% 250 ML IRRIGATION PRN; +HEPARIN SODIUM,PORCINE 10,000 UNIT in SODIUM CHLORIDE 0.9% 1,000 ML IRRIGATION PRN; +IOPAMIDOL-370 200ML BTL INJ ONE; -LACTATED RINGERS 1,000 ML IV SCH; -LIDOCAINE 1% (10MG/ML) FOR IV START INTRADERMA PRN; +LIDOCAINE 1% INJ 10MG/ML (20 ML MDV) ONE; +LIDOCAINE 1% INJ 10MG/ML (20 ML MDV) SQ ONE; +MIDAZOLAM 2 MG/2 ML VIAL IVP ONE; +NITROGLYCERIN SL TABS 0.4 MG TAB SUBLINGUAL PRN; +RX INFO: IV CONTRAST WAS GIVEN 1 EACH MISC MISCELLANE PRN; +SODIUM CHLORIDE 0.9% 1,000 ML IV ONE; +SODIUM CHLORIDE 0.9% 1,000 ML IV SCH; +SODIUM CHLORIDE 0.9% 1,000 ML in EMPTY BAG 1 BAG IV SCH; +VERAPAMIL 2.5 MG/ML 2 ML AMP ONE; +VERAPAMIL SYRINGE (5 MG/10 ML) INTRAARTER ONE
[2022-12-17 06:32] LABS: Basophils % (A) 0 %; Eosinophils # (A) 0.2 k/uL (0-0.7); Eosinophils % (A) 3 %; HCT 45.5 % (39.0-53.0); HGB 15.1 gm/dL (13.0-17.5); Lymphocytes # (A) 2.2 k/uL (1.0-4.8); Lymphocytes % (A) 32 %; MCH 31.3 pg (25.0-35.0); MCHC 33.1 g/dL (31.0-37.0); MCV 94.4 fL (80.0-100.0); Mean Platelet Volume 7.7; Monocytes # (A) 0.6 k/uL (0-1.0); Monocytes % (A) 9 %; Neutrophils # (A) 3.6 k/uL (1.3-7.7); Neutrophils % (A) 53 %; Platelet Count 232 k/uL (150-450); RBC 4.82 m/uL (4.30-5.90); RDW 13.2 % (11.5-15.5); WBC 6.7 k/uL (3.8-10.6)
[2022-12-17 06:40] VITALS: TEMP 98.2
[2022-12-17 06:43] LABS: African American GFR (CKD) >90 (>60 ml/min/1.73 sqM); Anion Gap 7 mmol/L; Blood Urea Nitrogen 7 mg/dL (9-20); Calcium 9.1 mg/dL (8.4-10.2); Carbon Dioxide 28 mmol/L (22-30); Chloride 98 mmol/L (98-107); Glucose 99 mg/dL (74-99); Non-African American GFR(CKD) >90 (>60 ml/min/1.73 sqM); Potassium 4.3 mmol/L (3.5-5.1); Sodium 133 mmol/L (137-145)
--- NOTE | 2022-12-17 08:03 | P.PCN ---
Date of Procedure: 12/17/22 Operative Findings: CARDIAC CATHETERIZATION PERFORMING PHYSICIAN: Walker Singleton MD, RPVI PROCEDURE PERFORMED: 1. Selective right and left coronary angiogram 2. Left heart catheterization 3 Ultrasound guided access of the right radial artery. INDICATION: Unstable angina COMPLICATION: None APPROACH: Right radial artery LEVEL OF SEDATION: Moderate with a sedation length of 10 minutes PROCEDURE DESCRIPTION: After obtaining an informed consent, the patient was brought to cardiac senior laboratory technician. Local anesthesia was performed using lidocaine subcutaneously. The right radial artery was cannulated using Seldinger technique, the guidewire passed easily, following that we advanced a 5-Belgian sheath dilator assembly, the wire and dilator were removed and sheath was flushed. Following that, 2 mg of verapamil along with 5000 unit heparin were given. Selective right and left coronary angiogram using a 6-Belgian JR4 and JL 3.5 catheters. Following that we did left heart catheterization using 6-Belgian pigtail catheter. The procedure was completed there was no complication. SELECTIVE CORONARY ANGIOGRAM: The right coronary artery: Large-caliber vessel and a dominant vessel. The RCA is a stented in the midportion and the stent is patent Left main: Has mild disease only. The left circumflex: Large caliber vessel nondominant vessel. The LCx gives rises into an OM1 which has 30-40 lesion. The left anterior descending artery: The LAD is a stented in the midportion and the stent appeared to be patent HEMODYNAMICS: The LVEDP was 15 mmHg was no significant gradient across aortic valve CONCLUSION: 1. Patent stents in both the RCA and LAD 2. Intermediate disease involving a medium size OM branch 3. Normal left-sided filling pressure POSTPROCEDURE MANAGEMENT: Medical treatment
[2022-12-17 08:31] VITALS: RESP 16
[2022-12-17 11:50] VITALS: BP 138/81; PULSE 63
== END ==
LOC: CATHCVL 05:54
PROVIDERS: ATTEND Internal Medicine Interventional Cardiology
DX: I25.10 Atherosclerotic heart disease of native coronary artery without angina pectoris (principal); I10 Essential (primary) hypertension; E78.5 Hyperlipidemia, unspecified; F17.210 Nicotine dependence, cigarettes, uncomplicated; J44.9 Chronic obstructive pulmonary disease, unspecified; I73.9 Peripheral vascular disease, unspecified; I34.0 Nonrheumatic mitral (valve) insufficiency; Z95.5 Presence of coronary angioplasty implant and graft; I77.819 Aortic ectasia, unspecified site; Z79.899 Other long term (current) drug therapy
CPT/HCPCS: 93458; 76937; 80048; 85025; C1769; C1894; J2250; J2001; J1644; Q9967

== ENCOUNTER → 2023-02-25 | Outpatient (CLI) | payer MEDICARE, OTHER ==
--- NOTE | 2023-02-26 13:10 | SLS ---
SLEEP STUDY This is a home sleep study testing. HISTORY OF PRESENT ILLNESS: This is a 62-year-old male patient with oxygen-dependent COPD and steroid-dependent COPD with an FEV1 of 28% of predicted. The patient was also given diagnosis of sleep apnea and he has an older-generation ResMed 9 series which is being utilized at a pressure of 9 cm of water. He had difficulties in tolerating the treatment and CPAP therapy has been difficult for him. Based on that, I ordered a home sleep study to reestablish diagnosis and decide if ongoing treatment is needed. He is known to have COPD with an FEV1 of 28%, coronary artery disease, hyperlipidemia, previous history of alcoholism, history of arterial clot in the left lower extremity and he has undergone a vessel bypass surgery. PERTINENT PHYSICAL FINDINGS: The patient has a body mass index of 22.2. TECHNICAL DESCRIPTION: The [employer] Ap[employer] system was used to complete this type 3 home sleep study. Total recording duration was 8 hours and 8 minutes. The study started at 11:05 p.m. and the study ended at 7:13 a.m. This was an adequate study as the patient had total of 7 hours and 32 minutes of flow monitoring and 5 hours and 25 minutes of oxygen saturation monitoring. RESULTS: Respiratory count showed a total of 1 hypopnea and no apneas. The patient's apnea- hypopnea index was 0.1. OXYGENATION ANALYSIS: No significant desaturations were encountered as the patient was being supplemented 3 L/minutes nasal cannula. Minimum pulse ox was 83% and the patient spent only 2 minutes of sleep time at a pulse ox below 88%. CARDIAC SUMMARY: Average heart rate was 77, minimum heart rate was 40, maximum heart rate 217. ASSESSMENT: 1. No evidence of any sleep breathing disorder. The patient's AHI is at 0.1. 2. Severe COPD with an FEV1 of 28% with chronic hypoxic respiratory failure, maintained on O2 at 3 L. 3. CAD with previous coronary stenting. 4. Peripheral vascular disease. 5. Arterial clot involving left lower extremity. 6. History of alcoholism. 7. History of depression. PLAN: No need for CPAP or BiPAP therapy at this point in time. We will hold off on treatment. Will optimize COPD. Continue oxygen therapy during the day and overnight at 3 L. We will continue to follow. MMODL / IJN: [id number] /
== END | disposition home or self-care (01) ==
LOC: 3 N SLEEP 10:52
PROVIDERS: ATTEND Internal Medicine Critical Care Medicine
DX: J44.9 Chronic obstructive pulmonary disease, unspecified (principal); F32.A Depression, unspecified; I25.10 Atherosclerotic heart disease of native coronary artery without angina pectoris; F10.90 Alcohol use, unspecified, uncomplicated; F17.200 Nicotine dependence, unspecified, uncomplicated; I73.9 Peripheral vascular disease, unspecified; I74.2 Embolism and thrombosis of arteries of the upper extremities; J96.11 Chronic respiratory failure with hypoxia; Z95.5 Presence of coronary angioplasty implant and graft; Z79.899 Other long term (current) drug therapy

== ENCOUNTER 2023-06-11 04:35 | Inpatient (IN) | payer MEDICARE, OTHER ==
[2023-06-11] MEDS ORDERED: SODIUM CHLORIDE 0.9% 1,000 ML IV STA (04:40)
--- NOTE | 2023-06-11 04:40 | ED ---
SOB HPI - General Stated Complaint: AIDE Time Seen by Provider: 06/11/23 04:39 Source: patient, EMS Mode of arrival: EMS - History of Present Illness Initial Comments: Eron a 62-year-old gentleman with history of COPD who is brought to the ER today by EMS in acute respiratory distress. Upon arrival patient is on CPAP able to answer yes and no questions and provide one word answers only. Patient states he has been feeling like this for a few hours, cannot breathe cannot catch his breath, patient denies chest pain or fevers. In depth history is limited by patient's respiratory distress - Related Data Home Medications Medication Instructions Recorded Confirmed Albuterol Sulfate [Ventolin HFA] 2 puff INHALATION RT-Q6H PRN 11/13/14 12/17/22 Metoprolol Tartrate 25 mg PO QAM 07/27/15 12/10/22 Multivitamin [Men's Multi-Vitamin] 1 tab PO DAILY 08/30/15 12/17/22 Gabapentin 300 mg PO TID 03/21/16 12/10/22 Aspirin [Adult Low Dose Aspirin EC] 81 mg PO DAILY 05/07/19 12/17/22 Atorvastatin [Lipitor] 40 mg PO DAILY 04/18/21 12/10/22 Albuterol Nebulized [Ventolin 2.5 mg INHALATION TID 12/15/21 12/10/22 Nebulized] Fluticasone/Umeclidin/Vilanter 1 inhalation INHALATION QAM 12/15/21 12/10/22 [Trelegy Ellipta 100-62.5-25] Pantoprazole Sodium 20 mg PO QAM 12/15/21 12/10/22 Vitd(Unk) 125 mg PO SA 11/08/22 12/17/22 Furosemide [Lasix] 20 mg PO DAILY 12/10/22 12/17/22 Ibuprofen 800 mg PO Q8H PRN 12/10/22 12/17/22 Isosorbide Mononitrate [Isosorbide 30 mg PO DAILY 12/10/22 12/10/22 Mononitrate ER] Allergies Allergy/AdvReac Type Severity Reaction Status Date / Time No Known Allergies Allergy Verified 12/17/22 06:36 Review of Systems ROS Statement: Those systems with pertinent positive or pertinent negative responses have been documented in the HPI. ROS Other: All systems not noted in ROS Statement are negative. Past Medical History Past Medical History: Atrial Fibrillation, Coronary Artery Disease (CAD), COPD, Deep Vein Thrombosis (DVT), GERD/Reflux, GI Bleed, Hyperlipidemia, Hypertension, Osteoarthritis (OA), Pneumonia, Sleep Apnea/CPAP/BIPAP Additional Past Medical History / Comment(s): DVT- LEFT LEG, CPAP, pt uses 3 liters 02 when active and at night with cpap. pt has portable 02 History of Any Multi-Drug Resistant Organisms: MRSA Date of last positivie culture/infection: 03/01/22 MRSA MDRO Source:: Right Axilla Past Surgical History: Heart Catheterization With Stent, Orthopedic Surgery Additional Past Surgical History / Comment(s): ABD AORTOGRAM. Other SX: (construction accident balcony fell from building)HAD CRUSHING INJURY TO ANKLES HAD FUSION DONE JOSE ALBERTO, LT FOOT TOE PARTIAL AMP. CHEST TUBE FOR PNEUMOTHORAX. SURGERY TO REMOVE BLOOD CLOT FROM LEG. Bronchial washings/lavage, EGD. femoral bypass,heart stents x3 Past Anesthesia/Blood Transfusion Reactions: No Reported Reaction Additional Past Anesthesia/Blood Transfusion Reaction / Comment(s): Pt states he has never received blood. Date of Last Stent Placement:: 04/2021 Smoking Status: Former smoker, Vaper - Past Family History Father Family Medical History: Coronary Artery Disease (CAD), Diabetes Mellitus, Myocardial Infarction (GA), Pulmonary Embolus Additional Family Medical History / Comment(s): PE Mother Family Medical History: CVA/TIA General Exam Limitations: physical limitation General appearance: alert, in distress Head exam: Present: atraumatic Eye exam: Present: PERRL Respiratory exam: Present: respiratory distress, wheezes, accessory muscle use, decreased breath sounds, prolonged expiratory Cardiovascular Exam: Present: tachycardia GI/Abdominal exam: Present: other (Belly breathing) Extremities exam: Absent: normal capillary refill, pedal edema Neurological exam: Present: alert Psychiatric exam: Present: anxious Skin exam: Present: diaphoretic Course Vital Signs 06/11/23 06/11/23 06/11/23 04:36 05:00 05:01 Temperature 97.3 F L Pulse Rate 112 H 111 H Respiratory 40 H 30 H Rate Blood Pressure 159/94 133/87 O2 Sat by Pulse 95 94 L Oximetry Fraction of 100 100 Inspired Oxygen (FIO2) 06/11/23 06/11/23 06:00 06:15 Temperature Pulse Rate 86 85 Respiratory 24 18 Rate Blood Pressure 126/73 O2 Sat by Pulse 98 Oximetry Fraction of Inspired Oxygen (FIO2) Medical Decision Making - Medical Decision Making Was pt. sent in by a medical professional or institution (, DASHAWN, ACO COORDINATOR, urgent care, hospital, or [place] [facility] facility...) When possible be specific @ -No Did you speak to anyone other than the patient for history (EMS, parent, family, police, friend...)? What history was obtained from this source @ -EMS Did you review nursing and triage notes (agree or disagree)? Why? @ -I reviewed and agree with nursing and triage notes Were old charts reviewed (outside hosp., previous admission, EMS record, old EKG, old radiological studies, urgent care reports/EKG's, [place] [facility] facility records)? Report findings @ -Previous visits were reviewed Differential Diagnosis (chest pain, altered mental status, abdominal pain women, abdominal pain men, vaginal bleeding, weakness, fever, dyspnea, syncope, headache, dizziness, GI bleed, back pain, seizure, CVA, palpatations, mental health)? @ -Differential Dyspnea: Coronary syndrome, arrhythmia, tamponade, asthma, COPD, pulmonary embolism, pneumonia, pneumothorax, pulmonary effusion, anaphylaxis, diabetic ketoacidosis, flailed chest, pulmonary contusion, diaphragmatic rupture, anemia, neuromuscular, this is not meant to be an all-inclusive list. EKG interpreted by me (3pts min.). @ -As above X-rays interpreted by me (1pt min.). @ - No pneumothorax no obvious consolidations changes consistent with COPD CT interpreted by me (1pt min.). @ -None done U/S interpreted by me (1pt. min.). @ -None done What testing was considered but not performed or refused? (CT, X-rays, U/S, labs)? Why? @ -None What meds were considered but not given or refused? Why? @ -None Did you discuss the management of the patient with other professionals (professionals i.e. DASHAWN Farrell, ACO COORDINATOR, lab, RT, psych nurse, social work lecturer, meteorologist liaison, teacher, motor equipment commanding officer, senior case manager)? Give summary @ -ICU Team Was smoking cessation discussed for >3mins.? @ -No Was critical care preformed (if so, how long)? @ -Yes, 35 minutes Were there social determinants of health that impacted care today? How? (Homelessness, low income, unemployed, alcoholism, drug addiction, transportation, low edu. Level, literacy, decrease access to med. care, custodial, rehab)? @ -No Was there de-escalation of care discussed even if they declined (Discuss DNR or withdrawal of care, Hospice)? DNR status @ -Status was addressed patient would like to remain full code at this time What co-morbidities impacted this encounter? (DM, HTN, Smoking, COPD, CAD, Cancer, CVA, ARF, Chemo, Hep., AIDS, mental health diagnosis, sleep apnea, morbid obesity)? @ -COPD, CAD Was patient admitted / discharged? Hospital course, mention meds given and route, prescriptions, significant lab abnormalities, going to OR and other pertinent info. @ -Admit to ICU Patient arrived via priority 1 transport by EMS with CPAP, patient with undetectable blood pressure and oxygen saturation and prehospital setting severe respiratory distress upon arrival BiPAP initiated, triple DuoNeb therapy initiated, IV fluids, magnesium initiated patient received Solu-Medrol prior to arrival Patient with mild improvement after CPAP, reported some nausea and was given Zofran Patient was given some dissociative dose of ketamine for anxiolysis and to promote relaxation of the bronchospasm patient did have a significant imp rovement in his condition after ketamine His blood gas with evidence of hypercapnia and respiratory acidosis Patient positive for RSV Given the patient's poor baseline condition, severe COPD I do feel he will have a complicated course with RSV and warrants admission to the ICU. This plan was discussed with Rosalio the nurse practitioner for the ICU who agrees. Undiagnosed new problem with uncertain prognosis? @ -No Drug Therapy requiring intensive monitoring for toxicity (Heparin, Nitro, Insulin, Cardizem)? @ -Sedation/Anxiolysis to tolerate CPAP - ketamine, ativan Were any procedures done? @ -No Diagnosis/symptom? @ -RSV Acute, or Chronic, or Acute on Chronic? @ - Acute Uncomplicated (without systemic symptoms) or Complicated (systemic symptoms)? @ -Complicated Side effects of treatment? @ -No Exacerbation, Progression, or Severe Exacerbation? @ -No Poses a threat to life or bodily function? How? (Chest pain, USA, GA, pneumonia, PE, COPD, DKA, ARF, appy, cholecystitis, CVA, Diverticulitis, Homicidal, Suicidal, threat to staff... and all critical care pts) @ -Yes, can lead to respiratory failure - Lab Data Result diagrams: 06/11/23 04:43 06/11/23 04:43 Lab Results 06/11/23 06/11/23 06/11/23 Range/Units 04:43 04:43 04:43 WBC 10.6 (3.8-10.6) k/uL RBC 4.64 (4.30-5.90) m/uL Hgb 14.4 (13.0-17.5) gm/dL Hct 45.1 (39.0-53.0) % MCV 97.1 (80.0-100.0) fL MCH 31.0 (25.0-35.0) pg MCHC 32.0 (31.0-37.0) g/dL RDW 13.3 (11.5-15.5) % Plt Count 369 (150-450) k/uL MPV 7.7 Neutrophils % 75 % Lymphocytes % 12 % Monocytes % 8 % Eosinophils % 2 % Basophils % 1 % Neutrophils # 7.9 H (1.3-7.7) k/uL Lymphocytes # 1.2 (1.0-4.8) k/uL Monocytes # 0.9 (0-1.0) k/uL Eosinophils # 0.2 (0-0.7) k/uL Basophils # 0.1 (0-0.2) k/uL Hypochromasia Slight PT 9.8 L (10.0-12.5) sec INR 0.9 (<1.2) APTT 22.7 (22.0-30.0) sec Sodium 135 L (137-145) mmol/L Potassium 4.3 (3.5-5.1) mmol/L Chloride 92 L (98-107) mmol/L Carbon Dioxide 35 H (22-30) mmol/L Anion Gap 8 mmol/L BUN 7 L (9-20) mg/dL Creatinine 0.63 L (0.66-1.25) mg/dL Est GFR (CKD-EPI)AfAm >90 (>60 ml/min/1.73 sqM) Est GFR (CKD-EPI)NonAf >90 (>60 ml/min/1.73 sqM) Glucose 107 H (74-99) mg/dL Plasma Lactic Acid Ned (0.7-2.0) mmol/L Calcium 9.5 (8.4-10.2) mg/dL Magnesium 2.1 (1.6-2.3) mg/dL Total Bilirubin 0.4 (0.2-1.3) mg/dL AST 38 (17-59) U/L ALT 30 (4-49) U/L Alkaline Phosphatase 103 (38-126) U/L Troponin I (0.000-0.034) ng/mL NT-Pro-B Natriuret Pep 357 pg/mL Total Protein 7.7 (6.3-8.2) g/dL Albumin 4.5 (3.5-5.0) g/dL Influenza Type A (PCR) (Not Detectd) Influenza Type B (PCR) (Not Detectd) RSV (PCR) (Not Detectd) SARS-CoV-2 (PCR) (Not Detectd) 06/11/23 06/11/23 06/11/23 Range/Units 04:43 04:43 05:11 WBC (3.8-10.6) k/uL RBC (4.30-5.90) m/uL Hgb (13.0-17.5) gm/dL Hct (39.0-53.0) % MCV (80.0-100.0) fL MCH (25.0-35.0) pg MCHC (31.0-37.0) g/dL RDW (11.5-15.5) % Plt Count (150-450) k/uL MPV Neutrophils % % Lymphocytes % % Monocytes % % Eosinophils % % Basophils % % Neutrophils # (1.3-7.7) k/uL Lymphocytes # (1.0-4.8) k/uL Monocytes # (0-1.0) k/uL Eosinophils # (0-0.7) k/uL Basophils # (0-0.2) k/uL Hypochromasia PT (10.0-12.5) sec INR (<1.2) APTT (22.0-30.0) sec Sodium (137-145) mmol/L Potassium (3.5-5.1) mmol/L Chloride (98-107) mmol/L Carbon Dioxide (22-30) mmol/L Anion Gap mmol/L BUN (9-20) mg/dL Creatinine (0.66-1.25) mg/dL Est GFR (CKD-EPI)AfAm (>60 ml/min/1.73 sqM) Est GFR (CKD-EPI)NonAf (>60 ml/min/1.73 sqM) Glucose (74-99) mg/dL Plasma Lactic Acid Ned 2.8 H* (0.7-2.0) mmol/L Calcium (8.4-10.2) mg/dL Magnesium (1.6-2.3) mg/dL Total Bilirubin (0.2-1.3) mg/dL AST (17-59) U/L ALT (4-49) U/L Alkaline Phosphatase (38-126) U/L Troponin I <0.012 (0.000-0.034) ng/mL NT-Pro-B Natriuret Pep pg/mL Total Protein (6.3-8.2) g/dL Albumin (3.5-5.0) g/dL Influenza Type A (PCR) Not Detected (Not Detectd) Influenza Type B (PCR) Not Detected (Not Detectd) RSV (PCR) Detected A (Not Detectd) SARS-CoV-2 (PCR) Not Detected (Not Detectd) - EKG Data -: EKG Interpreted by Me EKG shows normal: sinus rhythm EKG Comments: EKG obtained due to respiratory distress, EKG obtained at 5 AM, rate is 96 rhythm is sinus with PVCs noted, UT 171, QRS 88, QTC 382 there are no acute ST elevations or depressions no evidence of acute ischemia or infarction. EKG interpreted by me, repeat EKG obtained when patient was in less distress, EKG obtained at 5:13 AM, rate is 91 rhythm is sinus normal axis, normal intervals, UT 195, QRS 91, QTC 69, there are no acute ST elevations or depressions no evidence of acute ischemia or infarction. Disposition Clinical Impression: RSV infection, COPD exacerbation, Respiratory failure with hypoxia and hypercapnia, BiPAP (biphasic positive airway pressure) dependence Disposition: ADMITTED IP TO THIS HOSP Condition: Poor Is patient prescribed a controlled substance at d/c from ED?: No Referrals: Ashlyn Toro MD [Primary Care Provider] - 1-2 days
[2023-06-11] MEDS: MAGNESIUM SULFATE-D5W PMX 1 GM in DEXTROSE/WATER 1 100ML.BAG IVPB SCH ×2 (04:53→05:36)
[2023-06-11] MEDS ORDERED: ONDANSETRON 4 MG/2 ML VIAL IVP STA (04:56)
[2023-06-11] MEDS ORDERED: KETAMINE 10 MG/ML 20 ML VIAL IV STA (04:57)
[2023-06-11 05:03] LABS: Basophils # (A) 0.1 k/uL (0-0.2); Basophils % (A) 1 %; Eosinophils # (A) 0.2 k/uL (0-0.7); Eosinophils % (A) 2 %; HCT 45.1 % (39.0-53.0); HGB 14.4 gm/dL (13.0-17.5); Hypochromasia Slight; Lymphocytes # (A) 1.2 k/uL (1.0-4.8); Lymphocytes % (A) 12 %; MCV 97.1 fL (80.0-100.0); Mean Platelet Volume 7.7; Monocytes # (A) 0.9 k/uL (0-1.0); Monocytes % (A) 8 %; Neutrophils # (A) 7.9 k/uL (1.3-7.7); Neutrophils % (A) 75 %; Platelet Count 369 k/uL (150-450); RBC 4.64 m/uL (4.30-5.90); RDW 13.3 % (11.5-15.5); WBC 10.6 k/uL (3.8-10.6)
[2023-06-11 05:15] LABS: ABG Base Excess 10.8 mmol/L; ABG HCO3 38 mmol/L (21-25); ABG Oxygen Saturation 68.8 % (94-97); ABG PH 7.28 (7.35-7.45); ABG TCO2 40 mmol/L (19-24); Allen Test Performed? Yes
[2023-06-11 05:16] LABS: ALT 30 U/L (4-49); AST 38 U/L (17-59); African American GFR (CKD) >90 (>60 ml/min/1.73 sqM); Albumin 4.5 g/dL (3.5-5.0); Alkaline Phosphatase 103 U/L (38-126); Anion Gap 8 mmol/L; Blood Urea Nitrogen 7 mg/dL (9-20); Calcium 9.5 mg/dL (8.4-10.2); Carbon Dioxide 35 mmol/L (22-30); Chloride 92 mmol/L (98-107); Glucose 107 mg/dL (74-99); Magnesium 2.1 mg/dL (1.6-2.3); Non-African American GFR(CKD) >90 (>60 ml/min/1.73 sqM); Potassium 4.3 mmol/L (3.5-5.1); Sodium 135 mmol/L (137-145); Total Bilirubin 0.4 mg/dL (0.2-1.3); Total Protein 7.7 g/dL (6.3-8.2)
[2023-06-11 05:21] LABS: INR 0.9 (<1.2); Partial Thromboplastin Time 22.7 sec (22.0-30.0); Prothrombin Time 9.8 sec (10.0-12.5)
[2023-06-11 05:25] LABS: NT-Pro-B-Type Natriuretic Pept 357 pg/mL
[2023-06-11] MEDS ORDERED: ALBUTEROL NEBULIZED 7.5 MG, SODIUM CHLORIDE 0.9% NEBULIZ 12 ML INHALATION ONE ×2 (05:58)
[2023-06-11] MEDS ORDERED: NALOXONE 0.4 MG/ML 1 ML VIAL IV PRN (06:25)
[2023-06-11] MEDS ORDERED: BUDESONIDE 1 MG/2 ML NEBU INHALATION STA (06:41)
[2023-06-11 06:53] LABS: ABG PCO2 80 mmHg (35-45)
[2023-06-11 06:54] LABS: ABG PO2 41 mmHg (83-108)
[2023-06-11] MEDS ORDERED: methylPREDNISolone SOD SUCCI 125 MG/2 ML VIAL IV SCH (07:00)
--- NOTE | 2023-06-11 07:27 | XR ---
EXAMINATION TYPE: XR chest 1V portable DATE OF EXAM: 06/11/2023 HISTORY: Shortness of breath. COMPARISON: 06/19/2022 TECHNIQUE: Single view of the chest is submitted. FINDINGS: Demonstrated are scattered senescent parenchymal change. Hyperinflation compatible COPD. Right upper lobe infiltrate is difficult to exclude. The heart is stable. Hilar and mediastinal structures are within normal limits. Degenerative changes are seen of the dorsal spine. IMPRESSION: 1. Hyperinflation compatible COPD. Right upper lobe infiltrate is difficult to exclude.
[2023-06-11] MEDS: FORMOTEROL FUMARATE 20 MCG/2 ML NEBU INHALATION SCH ×2 (08:30→20:34)
[2023-06-11 08:33] LABS: Glucose,Whole Blood 135 mg/dL (70-110)
[2023-06-11] MEDS ORDERED: IPRATROPIUM-ALBUTEROL 3 ML NEB INHALATION PRN (09:09)
[2023-06-11] MEDS ORDERED: ONDANSETRON 4 MG/2 ML VIAL IVP PRN (09:09)
[2023-06-11] MEDS ORDERED: BENZONATATE 100 MG CAP PO PRN (09:09)
[2023-06-11] MEDS ORDERED: PANTOPRAZOLE 40 MG/10 ML VIAL IVP SCH (09:30)
[2023-06-11] MEDS: ENOXAPARIN 40 MG/0.4 ML SYRINGE SQ SCH (10:44)
[2023-06-11] MEDS: guaiFENesin 600 MG TABLET.ER PO SCH ×2 (10:44→21:24)
[2023-06-11] MEDS: IPRATROPIUM-ALBUTEROL 3 ML NEB INHALATION SCH ×3 (11:37→20:35)
--- NOTE | 2023-06-11 12:00 | P.HPIM ---
History of Present Illness H&P Date: 06/11/23 Chief Complaint: Shortness of breath * 62-year-old gentleman with past medical history significant for COPD, paroxysmal atrial fibrillation, coronary artery disease, history of anxiety, obstructive sleep apnea, history of gastrointestinal bleed, history of gastrointestinal bleed, nicotine use presents to the emergency department with complaints of acute respiratory distress, shortness of breath. Patient states symptom onset was few hours prior to presentation. Patient said he was not able to catch his breath and was noted to be in significant distress. Patient was placed on CPAP. Workup initiated in ER included a chest x-ray which was negative for pneumothorax did show changes consistent with COPD. Patient was noted to be desaturating and was transitioned to BiPAP. Was given IV fluids, breathing treatments IV Solu-Medrol patient was noted to have significant anxiety and was given ketamine and ED. Medical ICU team was consulted and patient was transferred to ICU for further management * Further workup in ER included an EKG which showed sinus rhythm. Blood work obtained included CBC which showed WBC count of 10.6 hemoglobin 14.4 platelet count of 369, INR of 0.9 * Serum chemistry showed sodium 135 potassium 4.3 chloride 92 BUN 7 creatinine 0.60 lactate of 2.8 * Patient tested negative for influenza, COVID, however positive for RSV * Patient admitted to medical ICU treated with noninvasive ventilation REVIEW OF SYSTEMS: Cough, shortness of breath, wheezing CONSTITUTIONAL: No fever, no malaise, no fatigue. HEENT: No recent visual problems or hearing problems. Denied any sore throat. CARDIOVASCULAR: No chest pain, orthopnea, PND, no palpitations, no syncope. PULMONARY:Cough, shortness of breath, wheezing GASTROINTESTINAL: No diarrhea, no nausea, no vomiting, no abdominal pain. NEUROLOGICAL: No headaches, no weakness, no numbness. HEMATOLOGICAL: Denies any bleeding or petechiae. GENITOURINARY: Denies any burning micturition, frequency, or urgency. MUSCULOSKELETAL/RHEUMATOLOGICAL: Denies any joint pain, swelling, or any muscle pain. ENDOCRINE: Denies any polyuria or polydipsia. PHYSICAL EXAMINATION: GENERAL: The patient is alert and oriented x3, BiPAP in place, respiratory distress HEENT: Pupils are round and equally reacting to light. EOMI. CARDIOVASCULAR: S1 and S2 present. No murmurs, rubs, or gallops. PULMONARY: Respiratory distress, decreased breath sounds, BiPAP in place ABDOMEN: Soft, nontender, nondistended, normoactive bowel sounds. No palpable organomegaly. MUSCULOSKELETAL: No joint swelling or deformity. EXTREMITIES: No cyanosis, clubbing, or pedal edema. NEUROLOGICAL: Gross neurological examination did not reveal any focal deficits. SKIN: No rashes. Past Medical History Past Medical History: Atrial Fibrillation, Coronary Artery Disease (CAD), COPD, Deep Vein Thrombosis (DVT), GERD/Reflux, GI Bleed, Hyperlipidemia, Hypertension, Osteoarthritis (OA), Pneumonia, Sleep Apnea/CPAP/BIPAP Additional Past Medical History / Comment(s): DVT- LEFT LEG, CPAP, pt uses 3 liters 02 when active and at night with cpap. pt has portable 02 History of Any Multi-Drug Resistant Organisms: MRSA Date of last positivie culture/infection: 03/01/22 MRSA MDRO Source:: Right Axilla Past Surgical History: Heart Catheterization With Stent, Orthopedic Surgery Additional Past Surgical History / Comment(s): ABD AORTOGRAM. Other SX: (construction accident balcony fell from building)HAD CRUSHING INJURY TO ANKLES HAD FUSION DONE JOSE ALBERTO, LT FOOT TOE PARTIAL AMP. CHEST TUBE FOR PNEUMOTHORAX. SURGERY TO REMOVE BLOOD CLOT FROM LEG. Bronchial washings/lavage, EGD. femoral bypass,heart stents x3 Past Anesthesia/Blood Transfusion Reactions: No Reported Reaction Additional Past Anesthesia/Blood Transfusion Reaction / Comment(s): Pt states he has never received blood. Date of Last Stent Placement:: 04/2021 Smoking Status: Former smoker - Past Family History Father Family Medical History: Coronary Artery Disease (CAD), Diabetes Mellitus, Myocardial Infarction ([place]), Pulmonary Embolus Additional Family Medical History / Comment(s): PE Mother Family Medical History: CVA/TIA Medications and Allergies Home Medications Medication Instructions Recorded Confirmed Type Albuterol Sulfate [Ventolin HFA] 2 puff INHALATION RT-Q6H PRN 11/13/14 06/11/23 History Metoprolol Tartrate 25 mg PO BID 07/27/15 06/11/23 History Gabapentin 600 mg PO TID 03/21/16 06/11/23 History Albuterol Nebulized [Ventolin 2.5 mg INHALATION RT-TID 12/15/21 06/11/23 History Nebulized] Fluticasone/Umeclidin/Vilanter 1 puff INHALATION RT-DAILY 12/15/21 06/11/23 History [Trelegy Ellipta 100-62.5-25] Pantoprazole Sodium 20 mg PO DAILY 12/15/21 06/11/23 History Furosemide [Lasix] 20 mg PO DAILY 12/10/22 06/11/23 History Ibuprofen 800 mg PO Q8H PRN 12/10/22 06/11/23 History Isosorbide Mononitrate [Isosorbide 30 mg PO DAILY 12/10/22 06/11/23 History Mononitrate ER] Atorvastatin Calcium [Lipitor] 80 mg PO DAILY 06/11/23 06/11/23 History Cholecalciferol [Vitamin D3 (25 50 mcg PO DAILY 06/11/23 06/11/23 History Mcg = 1000 Iu)] predniSONE 10 mg PO DAILY 06/11/23 06/11/23 History Allergies Allergy/AdvReac Type Severity Reaction Status Date / Time No Known Allergies Allergy Verified 12/17/22 06:36 Physical Exam Vitals: Vital Signs Temp Pulse Resp BP Pulse Ox FiO2 06/11/23 09:00 105 H 19 119/83 100 06/11/23 08:55 98.0 F 06/11/23 08:53 93 06/11/23 08:30 96 21 06/11/23 08:28 99 50 06/11/23 08:15 90 06/11/23 07:29 84 20 114/84 99 06/11/23 06:44 87 16 124/86 99 06/11/23 06:33 92 06/11/23 06:32 92 06/11/23 06:15 85 18 06/11/23 06:00 86 24 126/73 98 06/11/23 05:01 100 06/11/23 05:00 111 H 30 H 133/87 94 L 06/11/23 04:36 97.3 F L 112 H 40 H 159/94 95 100 Intake and Output 06/10/23 06/11/23 06/11/23 22:59 06:59 14:59 Other: Weight 79.379 kg 60.4 kg Results CBC & Chem 7: 06/11/23 04:43 06/11/23 04:43 Labs: Abnormal Lab Results - Last 24 Hours (Table) 06/11/23 06/11/23 06/11/23 Range/Units 04:43 04:43 04:43 Neutrophils # 7.9 H (1.3-7.7) k/uL PT 9.8 L (10.0-12.5) sec ABG pH (7.35-7.45) ABG pCO2 (35-45) mmHg ABG pO2 (83-108) mmHg ABG HCO3 (21-25) mmol/L ABG Total CO2 (19-24) mmol/L ABG O2 Saturation (94-97) % Sodium 135 L (137-145) mmol/L Chloride 92 L (98-107) mmol/L Carbon Dioxide 35 H (22-30) mmol/L BUN 7 L (9-20) mg/dL Creatinine 0.63 L (0.66-1.25) mg/dL Glucose 107 H (74-99) mg/dL POC Glucose (mg/dL) (70-110) mg/dL Plasma Lactic Acid Ned (0.7-2.0) mmol/L RSV (PCR) (Not Detectd) 06/11/23 06/11/23 06/11/23 Range/Units 04:43 05:11 05:13 Neutrophils # (1.3-7.7) k/uL PT (10.0-12.5) sec ABG pH 7.28 L (7.35-7.45) ABG pCO2 80 H* (35-45) mmHg ABG pO2 41 L* (83-108) mmHg ABG HCO3 38 H (21-25) mmol/L ABG Total CO2 40 H (19-24) mmol/L ABG O2 Saturation 68.8 L (94-97) % Sodium (137-145) mmol/L Chloride (98-107) mmol/L Carbon Dioxide (22-30) mmol/L BUN (9-20) mg/dL Creatinine (0.66-1.25) mg/dL Glucose (74-99) mg/dL POC Glucose (mg/dL) (70-110) mg/dL Plasma Lactic Acid Ned 2.8 H* (0.7-2.0) mmol/L RSV (PCR) Detected A (Not Detectd) 06/11/23 Range/Units 08:31 Neutrophils # (1.3-7.7) k/uL PT (10.0-12.5) sec ABG pH (7.35-7.45) ABG pCO2 (35-45) mmHg ABG pO2 (83-108) mmHg ABG HCO3 (21-25) mmol/L ABG Total CO2 (19-24) mmol/L ABG O2 Saturation (94-97) % Sodium (137-145) mmol/L Chloride (98-107) mmol/L Carbon Dioxide (22-30) mmol/L BUN (9-20) mg/dL Creatinine (0.66-1.25) mg/dL Glucose (74-99) mg/dL POC Glucose (mg/dL) 135 H (70-110) mg/dL Plasma Lactic Acid Ned (0.7-2.0) mmol/L RSV (PCR) (Not Detectd) Assessment and Plan Assessment: Assessment and plan * Acute hypoxic respiratory failure secondary to RSV * Acute tracheobronchitis with COPD exacerbation * RSV viral infection * History of paroxysmal atrial fibrillation * History of gastrointestinal bleeding * History of left lower extremity DVT * History of anxiety and depression * History of sleep apnea on CPAP at home * Gastroesophageal reflux disease * History of hypertension * In regards to acute respiratory distress, continue patient on BiPAP, continue IV Solu-Medrol, breathing treatments, pulmonary medicine consulted * In regards to history of tracheobronchitis continue patient on noninvasive ventilation, continue IV Solu-Medrol * In regards to history of sleep apnea, continue noninvasive ventilation as needed * In regards to history of anxiety as needed IV Ativan ordered for panic attack * In regards to paroxysmal atrial fibrillation continue metoprolol, patient is not on anticoagulation due to history of gastrointestinal bleed * Lovenox for DVT prophylaxis, Protonix for GI prophylaxis * CODE STATUS is full code Time with Patient: Greater than 30
--- NOTE | 2023-06-11 12:18 | P.CNPUL ---
History of Present Illness Consult date: 06/11/23 Requesting physician: Og English Reason for consult: dyspnea, cough, COPD, hypoxemia, abnormal CXR/CT Chief complaint: Respiratory failure. History of present illness: Pulmonary consult dated June 11, 2023. 62-year-old male with history of severe COPD. His FEV1 is 27% of predicted. He sees one of my partners in the office for his COPD. The patient came into the emergency department on June 11, at 430 5 in the morning, complaining of severe respiratory distress. He was brought in by EMS. He had significant conversational dyspnea, and could not speak in full sentences. The patient was placed on BiPAP, with settings of 12/5 and 100% initially. The patient did test positive for RSV. The patient is currently on saline at KVO. The patient was admitted to the intensive care unit for further monitoring and management. In addition to severe COPD, the patient has a history of atrial fibrillation, coronary disease, deep vein thrombosis, GERD, GI bleed, hyperlipidemia, hyper tension, osteoarthritis, and sleep apnea syndrome. In addition, the patient has had heart catheterization with stent placement. White count was 10.6, hemoglobin 14.4, hematocrit 45.1, with a normal platelet count. Coagulation studies are normal. Blood gases show pO2 41, pCO2 of 80, pH is 7.28. Sodium 135, potassium 4.3, chloride 92, CO2 35, BUN 7, creatinine 0.63. Lactic acid initially was 2.8. Repeat was 1.4. He did test positive for RSV. N-terminal proBNP was 357. Troponin was negative. Chest x-ray shows changes of COPD, and possible infiltrate, in the right upper lobe. Review of Systems REVIEW OF SYSTEMS: CONSTITUTIONAL: [Negative.] NEUROLOGIC: [ Negative.] HEENT: [ Negative.] CARDIAC: [Negative.] PULMONARY: Severe shortness of breath. GI: [Negative.] : [Negative.] RHEUMATOLOGIC: [ Negative.] IMMUNOLOGIC: [ Negative.] ENDOCRINE: [Negative. ] DERMATOLOGIC: [Negative.] Past Medical History Past Medical History: Atrial Fibrillation, Coronary Artery Disease (CAD), COPD, Deep Vein Thrombosis (DVT), GERD/Reflux, GI Bleed, Hyperlipidemia, Hypertension, Osteoarthritis (OA), Pneumonia, Sleep Apnea/CPAP/BIPAP Additional Past Medical History / Comment(s): DVT- LEFT LEG, CPAP, pt uses 3 liters 02 when active and at night with cpap. pt has portable 02 History of Any Multi-Drug Resistant Organisms: MRSA Date of last positivie culture/infection: 03/01/22 MRSA MDRO Source:: Right Axilla Past Surgical History: Heart Catheterization With Stent, Orthopedic Surgery Additional Past Surgical History / Comment(s): ABD AORTOGRAM. Other SX: (construction accident balcony fell from building)HAD CRUSHING INJURY TO ANKLES HAD FUSION DONE JOSE ALBERTO, LT FOOT TOE PARTIAL AMP. CHEST TUBE FOR PNEUMOTHORAX. SURGERY TO REMOVE BLOOD CLOT FROM LEG. Bronchial washings/lavage, EGD. femoral bypass,heart stents x3 Past Anesthesia/Blood Transfusion Reactions: No Reported Reaction Additional Past Anesthesia/Blood Transfusion Reaction / Comment(s): Pt states he has never received blood. Date of Last Stent Placement:: 04/2021 Smoking Status: Former smoker - Past Family History Father Family Medical History: Coronary Artery Disease (CAD), Diabetes Mellitus, Myocardial Infarction ([place]), Pulmonary Embolus Additional Family Medical History / Comment(s): PE Mother Family Medical History: CVA/TIA Medications and Allergies Home Medications Medication Instructions Recorded Confirmed Type Albuterol Sulfate [Ventolin HFA] 2 puff INHALATION RT-Q6H PRN 11/13/14 06/11/23 History Metoprolol Tartrate 25 mg PO BID 07/27/15 06/11/23 History Gabapentin 600 mg PO TID 03/21/16 06/11/23 History Albuterol Nebulized [Ventolin 2.5 mg INHALATION RT-TID 12/15/21 06/11/23 History Nebulized] Fluticasone/Umeclidin/Vilanter 1 puff INHALATION RT-DAILY 12/15/21 06/11/23 History [Trelegy Ellipta 100-62.5-25] Pantoprazole Sodium 20 mg PO DAILY 12/15/21 06/11/23 History Furosemide [Lasix] 20 mg PO DAILY 12/10/22 06/11/23 History Ibuprofen 800 mg PO Q8H PRN 12/10/22 06/11/23 History Isosorbide Mononitrate [Isosorbide 30 mg PO DAILY 12/10/22 06/11/23 History Mononitrate ER] Atorvastatin Calcium [Lipitor] 80 mg PO DAILY 06/11/23 06/11/23 History Cholecalciferol [Vitamin D3 (25 50 mcg PO DAILY 06/11/23 06/11/23 History Mcg = 1000 Iu)] predniSONE 10 mg PO DAILY 06/11/23 06/11/23 History Allergies Allergy/AdvReac Type Severity Reaction Status Date / Time No Known Allergies Allergy Verified 12/17/22 06:36 Physical Exam Osteopathic Statement: *. No significant issues noted on an osteopathic structural exam other than those noted in the History and Physical/Consult. Vitals: Vital Signs Temp Pulse Resp BP Pulse Ox FiO2 06/11/23 11:49 87 06/11/23 11:37 86 50 06/11/23 11:00 83 18 114/78 97 06/11/23 10:30 79 18 123/85 97 06/11/23 10:00 87 24 123/85 99 06/11/23 09:30 85 26 H 114/76 99 50 06/11/23 09:00 105 H 19 119/83 100 06/11/23 08:55 98.0 F 06/11/23 08:53 93 06/11/23 08:30 96 21 06/11/23 08:28 99 50 06/11/23 08:15 90 06/11/23 07:29 84 20 114/84 99 06/11/23 06:44 87 16 124/86 99 06/11/23 06:33 92 06/11/23 06:32 92 06/11/23 06:15 85 18 06/11/23 06:00 86 24 126/73 98 06/11/23 05:01 100 06/11/23 05:00 111 H 30 H 133/87 94 L 06/11/23 04:36 97.3 F L 112 H 40 H 159/94 95 100 Intake and Output 06/10/23 06/11/23 06/11/23 22:59 06:59 14:59 Intake Total 50 Output Total 850 Balance -800 Intake: IV 50 0.9 NS 50 Output: Urine 850 Other: Voiding Method Urinal Weight 79.379 kg 60.4 kg No acute distress, somnolent, BiPAP mask in place. No obvious respiratory distress. HEENT examination is grossly unremarkable. Neck supple. Full range of motion. No adenopathy thyromegaly or neck vein distention. Cardiovascular examination reveals regular rhythm rate. S1-S2 normal. No S3 or S4. No discernible murmur noted. Heart sounds are distant. Heart rate 87 bpm. Lungs reveal severely diminished bilateral breath sounds. Scattered rhonchi and wheezes are noted. No crackles. Saturations are in the mid 90s. Patient remains on BiPAP. Abdomen soft with bowel sounds. No masses or tenderness. Extremities are intact. No cyanosis clubbing or edema. Skin is without rash or lesion. Neurologic examination is brief but nonfocal. Results - Laboratory Findings CBC and BMP: 06/11/23 04:43 06/11/23 04:43 ABG ABG pH 7.28 (7.35-7.45) L 06/11/23 05:13 ABG pCO2 80 mmHg (35-45) H* 06/11/23 05:13 ABG pO2 41 mmHg (83-108) L* 06/11/23 05:13 ABG O2 Saturation 68.8 % (94-97) L 06/11/23 05:13 PT/INR, D-dimer PT 9.8 sec (10.0-12.5) L 06/11/23 04:43 INR 0.9 (<1.2) 06/11/23 04:43 Abnormal lab findings: Abnormal Labs 06/11/23 06/11/23 06/11/23 04:43 04:43 04:43 Neutrophils # 7.9 H PT 9.8 L ABG pH ABG pCO2 ABG pO2 ABG HCO3 ABG Total CO2 ABG O2 Saturation Sodium 135 L Chloride 92 L Carbon Dioxide 35 H BUN 7 L Creatinine 0.63 L Glucose 107 H POC Glucose (mg/dL) Plasma Lactic Acid Ned RSV (PCR) 06/11/23 06/11/23 06/11/23 04:43 05:11 05:13 Neutrophils # PT ABG pH 7.28 L ABG pCO2 80 H* ABG pO2 41 L* ABG HCO3 38 H ABG Total CO2 40 H ABG O2 Saturation 68.8 L Sodium Chloride Carbon Dioxide BUN Creatinine Glucose POC Glucose (mg/dL) Plasma Lactic Acid Ned 2.8 H* RSV (PCR) Detected A 06/11/23 08:31 Neutrophils # PT ABG pH ABG pCO2 ABG pO2 ABG HCO3 ABG Total CO2 ABG O2 Saturation Sodium Chloride Carbon Dioxide BUN Creatinine Glucose POC Glucose (mg/dL) 135 H Plasma Lactic Acid Ned RSV (PCR) - Diagnostic Findings Chest x-ray: image reviewed Assessment and Plan Assessment: Acute hypoxemic and hypercapnic respiratory failure secondary to severe COPD, with an FEV1 that is 27% of predicted. Chronic hypoxemic respiratory failure, with home oxygen 03/12. History of coronary artery disease, status post PCI with stent placement. History of atrial fibrillation. History of deep vein thrombosis. History of GI bleed, and gastroesophageal reflux disease. History of hyperlipidemia. History of hypertension. History of pneumonia. History of obstructive sleep apnea syndrome, on home CPAP. History of osteoarthritis. History of pneumothorax. Multiple other medical problems and comorbidities. Plan: Plan dated June 11, 2023. The patient is admitted to the intensive care unit, for further monitoring and management. He was placed on BiPAP. The FiO2 was turned down to 50%. Labs, x- rays, and medications are reviewed. The patient started on appropriate medica tions including albuterol sulfate, ipratropium bromide, formoterol, budesonide, and Solu-Medrol. The patient's overall prognosis remains guarded. The patient did test positive for respiratory syncytial virus. We will continue to follow the patient, make recommendations along the way. His chest x-ray suggested possible infiltrate, right upper lobe. A procalcitonin level was ordered. If elevated, the patient will likely receive some antibiotics. Clinically, he appears reasonably stable. Time with Patient: Greater than 30
[2023-06-11] MEDS: methylPREDNISolone SOD SUCCI 125 MG/2 ML VIAL IV SCH ×3 (13:00→23:30)
[2023-06-11 17:11] LABS: Glucose,Whole Blood 126 mg/dL (70-110)
[2023-06-11] MEDS: LORazepam 2 MG/ML INJ IV PRN (17:29)
[2023-06-11] MEDS: GABAPENTIN 300 MG CAP PO SCH ×2 (17:29→21:24)
[2023-06-11] MEDS ORDERED: BUDESONIDE 0.5 MG/2 ML NEBU INHALATION SCH (20:00)
[2023-06-11] MEDS: BUDESONIDE 1 MG/2 ML NEBU INHALATION SCH (20:35)
[2023-06-11 20:38] LABS: Glucose,Whole Blood 125 mg/dL (70-110)
[2023-06-11] MEDS: METOPROLOL TARTRATE 25 MG TAB PO SCH (21:24)
[2023-06-12] MEDS: IPRATROPIUM-ALBUTEROL 3 ML NEB INHALATION SCH ×6 (00:18→21:20)
[2023-06-12] MEDS: methylPREDNISolone SOD SUCCI 125 MG/2 ML VIAL IV SCH ×3 (05:35→17:40)
[2023-06-12 06:07] LABS: HCT 37.8 % (39.0-53.0); Hypochromasia Slight; MCH 30.9 pg (25.0-35.0); MCHC 31.9 g/dL (31.0-37.0); MCV 96.9 fL (80.0-100.0); Mean Platelet Volume 8.4; Platelet Count 269 k/uL (150-450); RDW 13.7 % (11.5-15.5); WBC 7.1 k/uL (3.8-10.6)
[2023-06-12 06:20] LABS: African American GFR (CKD) >90 (>60 ml/min/1.73 sqM); Anion Gap 1 mmol/L; Blood Urea Nitrogen 13 mg/dL (9-20); C Reactive Protein 1.5 mg/dL (<1.0); Calcium 9.2 mg/dL (8.4-10.2); Carbon Dioxide 35 mmol/L (22-30); Chloride 94 mmol/L (98-107); Glucose 123 mg/dL (74-99); Non-African American GFR(CKD) >90 (>60 ml/min/1.73 sqM); Potassium 4.9 mmol/L (3.5-5.1); Sodium 130 mmol/L (137-145)
[2023-06-12 06:31] LABS: Glucose,Whole Blood 118 mg/dL (70-110)
--- NOTE | 2023-06-12 07:47 | XR ---
EXAMINATION TYPE: XR chest 1V portable DATE OF EXAM: 06/12/2023 HISTORY: Shortness of breath. COMPARISON: 06/11/2023 TECHNIQUE: Single view of the chest is submitted. FINDINGS: Demonstrated are scattered senescent parenchymal change. Patchy density right upper lobe persists although continues to improve. The heart is stable. Hilar and mediastinal structures are within normal limits. Degenerative changes are seen of the dorsal spine. IMPRESSION: 1. Patchy density right upper lobe persists although continues to improve.
[2023-06-12] MEDS: guaiFENesin 600 MG TABLET.ER PO SCH ×2 (08:18→20:27)
[2023-06-12] MEDS: ISOSORBIDE MONONITRATE ER 30 MG TAB.ER.24H PO SCH (08:18)
[2023-06-12] MEDS: PANTOPRAZOLE 40 MG TABLET PO SCH (08:18)
[2023-06-12] MEDS: ATORVASTATIN 80 MG TAB PO SCH (08:18)
[2023-06-12] MEDS: METOPROLOL TARTRATE 25 MG TAB PO SCH ×2 (08:19→20:27)
[2023-06-12] MEDS: ACETAMINOPHEN TAB 325 MG TAB PO PRN ×2 (08:19→20:27)
[2023-06-12] MEDS: GABAPENTIN 300 MG CAP PO SCH ×3 (08:19→20:27)
[2023-06-12] MEDS: ENOXAPARIN 40 MG/0.4 ML SYRINGE SQ SCH (08:19)
[2023-06-12] MEDS: CHOLECALCIFEROL 25 MCG (1000 IU) TABLET PO SCH (08:19)
[2023-06-12] MEDS: LORazepam 2 MG/ML INJ IV PRN (08:21)
[2023-06-12] MEDS: BUDESONIDE 1 MG/2 ML NEBU INHALATION SCH ×2 (08:43→21:19)
[2023-06-12] MEDS: FORMOTEROL FUMARATE 20 MCG/2 ML NEBU INHALATION SCH ×2 (08:43→21:19)
--- NOTE | 2023-06-12 11:05 | P.PN ---
Subjective Progress Note Date: 06/12/23 Principal diagnosis: COPD exacerbation, respiratory failure. Pulmonary consult dated June 11, 2023. 62-year-old male with history of severe COPD. His FEV1 is 27% of predicted. He sees one of my partners in the office for his COPD. The patient came into the emergency department on June 11, at 430 5 in the morning, complaining of severe respiratory distress. He was brought in by EMS. He had significant conversational dyspnea, and could not speak in full sentences. The patient was placed on BiPAP, with settings of 12/5 and 100% initially. The patient did test positive for RSV. The patient is currently on saline at KVO. The patient was admitted to the intensive care unit for further monitoring and management. In addition to severe COPD, the patient has a history of atrial fibrillation, coronary disease, deep vein thrombosis, GERD, GI bleed, hyperlipidemia, hypertension, osteoarthritis, and sleep apnea syndrome. In addition, the patient has had heart catheterization with stent placement. White count was 10.6, hemoglobin 14.4, hematocrit 45.1, with a normal platelet count. Coagulation studies are normal. Blood gases show pO2 41, pCO2 of 80, pH is 7.28. Sodium 135, potassium 4.3, chloride 92, CO2 35, BUN 7, creatinine 0.63. Lactic acid initially was 2.8. Repeat was 1.4. He did test positive for RSV. N-terminal proBNP was 357. Troponin was negative. Chest x-ray shows changes of COPD, and possible infiltrate, in the right upper lobe. Progress note dated June 12, 2023. 62-year-old male with history of severe/end-stage COPD, and an FEV1 that is only 27% of predicted. The patient was admitted to the intensive care unit, for respiratory failure, COPD exacerbation, and RSV tracheobronchitis. The patient is either on 4 L by nasal cannula, or BiPAP, with settings of 12/5, and 50%. In addition, the patient is getting saline at 20 cc an hour. He appears much more comfortable today than yesterday. We did add some Xanax, 0.25 mg 3 times a day. White count is 7.1, hemoglobin 12, hematocrit 37.8, platelet count was normal. Sodium 130, potassium 4.9, chloride 94, CO2 35, BUN 13, creatinine 0.54. Calcium is 9.2, and C-reactive protein is 1.5. Procalcitonin level is 0.04. Chest x-ray shows some patchy density, right upper lobe. This area continues to improve. Objective - Vital Signs Vital signs: Vital Signs Temp 97.7 F 06/12/23 08:00 Pulse 78 06/12/23 10:00 Resp 18 06/12/23 10:00 BP 103/70 06/12/23 10:00 Pulse Ox 92 L 06/12/23 10:00 FiO2 50 06/12/23 08:00 Intake & Output 06/11/23 06/12/23 06/12/23 18:59 06:59 18:59 Intake Total 110 120 690 Output Total 1150 300 300 Balance -1040 -180 390 Weight 60.4 kg 63.9 kg Intake: IV 110 120 90 0.9 NS 110 120 70 Invasive Line 1 20 Oral 600 Output: Urine 1150 300 300 Other: Voiding Method Urinal Urinal Urinal # Bowel Movements 0 - Exam No acute distress, somnolent, currently on 4 L nasal cannula, in no obvious respiratory difficulty or distress. HEENT examination is grossly unremarkable. Neck supple. Full range of motion. No adenopathy thyromegaly or neck vein distention. Cardiovascular examination reveals regular rhythm rate. S1-S2 normal. No S3 or S4. No discernible murmur noted. Heart sounds are distant. Heart rate 78 bpm. Lungs reveal severely diminished bilateral breath sounds. Scattered rhonchi and wheezes are noted. No crackles. 4 L saturation is 92%. Abdomen soft with bowel sounds. No masses or tenderness. Extremities are intact. No cyanosis clubbing or edema. Skin is without rash or lesion. Neurologic examination is brief but nonfocal. - Labs CBC & Chem 7: 06/12/23 05:28 06/12/23 05:28 Labs: Abnormal Lab Results - Last 24 Hours (Table) 06/11/23 06/11/23 06/12/23 Range/Units 17:08 20:38 05:28 RBC 3.90 L (4.30-5.90) m/uL Hgb 12.0 L (13.0-17.5) gm/dL Hct 37.8 L (39.0-53.0) % Sodium (137-145) mmol/L Chloride (98-107) mmol/L Carbon Dioxide (22-30) mmol/L Creatinine (0.66-1.25) mg/dL Glucose (74-99) mg/dL POC Glucose (mg/dL) 126 H 125 H (70-110) mg/dL C-Reactive Protein (<1.0) mg/dL 06/12/23 06/12/23 Range/Units 05:28 06:29 RBC (4.30-5.90) m/uL Hgb (13.0-17.5) gm/dL Hct (39.0-53.0) % Sodium 130 L (137-145) mmol/L Chloride 94 L (98-107) mmol/L Carbon Dioxide 35 H (22-30) mmol/L Creatinine 0.54 L (0.66-1.25) mg/dL Glucose 123 H (74-99) mg/dL POC Glucose (mg/dL) 118 H (70-110) mg/dL C-Reactive Protein 1.5 H (<1.0) mg/dL Assessment and Plan Assessment: Acute hypoxemic and hypercapnic respiratory failure secondary to severe COPD, with an FEV1 that is 27% of predicted. Chronic hypoxemic respiratory failure, with home oxygen 03/12. History of coronary artery disease, status post PCI with stent placement. History of atrial fibrillation. History of deep vein thrombosis. History of GI bleed, and gastroesophageal reflux disease. History of hyperlipidemia. History of hypertension. History of pneumonia. History of obstructive sleep apnea syndrome, on home CPAP. History of osteoarthritis. History of pneumothorax. Multiple other medical problems and comorbidities. Plan: Plan dated June 11, 2023. The patient is admitted to the intensive care unit, for further monitoring and management. He was placed on BiPAP. The FiO2 was turned down to 50%. Labs, x- rays, and medications are reviewed. The patient started on appropriate medications including albuterol sulfate, ipratropium bromide, formoterol, budesonide, and Solu-Medrol. The patient's overall prognosis remains guarded. The patient did test positive for respiratory syncytial virus. We will continue to follow the patient, make recommendations along the way. His chest x-ray suggested possible infiltrate, right upper lobe. A procalcitonin level was ordered. If elevated, the patient will likely receive some antibiotics. C linically, he appears reasonably stable. Plan dated June 12, 2023. The patient is seen today in room 259. The patient is either on BiPAP, or nasal cannula, at 4 L. The patient appears to be much more comfortable, and seems to be responding to the medications that we added to his regimen. Currently, he is on Pulmicort, formoterol, albuterol, ipratropium bromide, and Solu-Medrol. The patient is not on any antibiotics, as the patient's procalcitonin level was normal. We will continue to follow. I told the nurses that later today, if he continues to be stable, he could be transferred out of the intensive care unit. We did add some Xanax 0.25 mg 3 times a day. The patient's overall prognosis remains guarded. Labs, x-rays, and all medications are reviewed. Time with Patient: Less than 30
[2023-06-12 11:22] LABS: Glucose,Whole Blood 143 mg/dL (70-110)
[2023-06-12] MEDS: ALPRAZolam 0.25 MG TAB PO PRN ×2 (12:14→20:33)
--- NOTE | 2023-06-12 12:19 | P.PN ---
Subjective Progress Note Date: 06/12/23 * 62-year-old gentleman with past medical history significant for COPD, paroxysmal atrial fibrillation, coronary artery disease, history of anxiety, obstructive sleep apnea, history of gastrointestinal bleed, history of gastrointestinal bleed, nicotine use presents to the emergency department with complaints of acute respiratory distress, shortness of breath. Patient states symptom onset was few hours prior to presentation. Patient said he was not able to catch his breath and was noted to be in significant distress. Patient was placed on CPAP. Workup initiated in ER included a chest x-ray which was negative for pneumothorax did show changes consistent with COPD. Patient was noted to be desaturating and was transitioned to BiPAP. Was given IV fluids, breathing treatments IV Solu-Medrol patient was noted to have significant anxiety and was given ketamine and ED. Medical ICU team was consulted and patient was transferred to ICU for further management * Further workup in ER included an EKG which showed sinus rhythm. Blood work obtained included CBC which showed WBC count of 10.6 hemoglobin 14.4 platelet count of 369, INR of 0.9 * Serum chemistry showed sodium 135 potassium 4.3 chloride 92 BUN 7 creatinine 0.60 lactate of 2.8 * Patient tested negative for influenza, COVID, however positive for RSV * Patient admitted to medical ICU treated with noninvasive ventilation * 06/12/2023: Patient seen and evaluated bedside, on evaluation patient is off BiPAP, 4 L of oxygen noted. CBC showed WBC count of 7.1 hemoglobin of 12, serum chemistry reviewed sodium 130 Jenifer 0.54 CRP 1.5 REVIEW OF SYSTEMS: Cough, shortness of breath, wheezing proved CONSTITUTIONAL: No fever, no malaise, no fatigue. HEENT: No recent visual problems or hearing problems. Denied any sore throat. CARDIOVASCULAR: No chest pain, orthopnea, PND, no palpitations, no syncope. PULMONARY:Cough, shortness of breath, wheezing improved GASTROINTESTINAL: No diarrhea, no nausea, no vomiting, no abdominal pain. NEUROLOGICAL: No headaches, no weakness, no numbness. HEMATOLOGICAL: Denies any bleeding or petechiae. GENITOURINARY: Denies any burning micturition, frequency, or urgency. MUSCULOSKELETAL/RHEUMATOLOGICAL: Denies any joint pain, swelling, or any muscle pain. ENDOCRINE: Denies any polyuria or polydipsia. PHYSICAL EXAMINATION: GENERAL: The patient is alert and oriented x3, acute distress resolved on nasal cannula HEENT: Pupils are round and equally reacting to light. EOMI. CARDIOVASCULAR: S1 and S2 present. No murmurs, rubs, or gallops. PULMONARY: , decreased breath sounds, no wheeze no rhonchi ABDOMEN: Soft, nontender, nondistended, normoactive bowel sounds. No palpable organomegaly. MUSCULOSKELETAL: No joint swelling or deformity. EXTREMITIES: No cyanosis, clubbing, or pedal edema. NEUROLOGICAL: Gross neurological examination did not reveal any focal deficits. SKIN: No rashes. Objective - Vital Signs Vital signs: Vital Signs Temp 98.0 F 06/12/23 12:00 Pulse 73 06/12/23 12:00 Resp 21 06/12/23 12:00 BP 95/62 06/12/23 12:00 Pulse Ox 97 06/12/23 12:00 FiO2 50 06/12/23 08:00 Intake & Output 06/11/23 06/12/23 06/12/23 18:59 06:59 18:59 Intake Total 110 120 910 Output Total 1150 300 675 Balance -1040 -180 235 Weight 60.4 kg 63.9 kg Intake: IV 110 120 110 0.9 NS 110 120 70 Invasive Line 1 40 Oral 800 Output: Urine 1150 300 675 Other: Voiding Method Urinal Urinal Urinal # Bowel Movements 0 - Labs CBC & Chem 7: 06/12/23 05:28 06/12/23 05:28 Labs: Abnormal Lab Results - Last 24 Hours (Table) 06/11/23 06/11/23 06/12/23 Range/Units 17:08 20:38 05:28 RBC 3.90 L (4.30-5.90) m/uL Hgb 12.0 L (13.0-17.5) gm/dL Hct 37.8 L (39.0-53.0) % Sodium (137-145) mmol/L Chloride (98-107) mmol/L Carbon Dioxide (22-30) mmol/L Creatinine (0.66-1.25) mg/dL Glucose (74-99) mg/dL POC Glucose (mg/dL) 126 H 125 H (70-110) mg/dL C-Reactive Protein (<1.0) mg/dL 06/12/23 06/12/23 06/12/23 Range/Units 05:28 06:29 11:10 RBC (4.30-5.90) m/uL Hgb (13.0-17.5) gm/dL Hct (39.0-53.0) % Sodium 130 L (137-145) mmol/L Chloride 94 L (98-107) mmol/L Carbon Dioxide 35 H (22-30) mmol/L Creatinine 0.54 L (0.66-1.25) mg/dL Glucose 123 H (74-99) mg/dL POC Glucose (mg/dL) 118 H 143 H (70-110) mg/dL C-Reactive Protein 1.5 H (<1.0) mg/dL Assessment and Plan Assessment: Assessment and plan * Acute hypoxic respiratory failure secondary to RSV * Acute tracheobronchitis with COPD exacerbation * RSV viral infection * History of paroxysmal atrial fibrillation * History of gastrointestinal bleeding * History of left lower extremity DVT * History of anxiety and depression * History of sleep apnea on CPAP at home * Gastroesophageal reflux disease * History of hypertension * In regards to acute respiratory distress, weaned off BiPAP, oxygen supplementa tion through nasal cannula, continue IV Solu-Medrol, breathing treatments, pulmonary medicine consulted * In regards to history of tracheobronchitis continue patient on noninvasive ventilation, continue IV Solu-Medrol * In regards to history of sleep apnea, continue noninvasive ventilation as needed * In regards to history of anxiety as needed IV Ativan ordered for panic attack * In regards to paroxysmal atrial fibrillation continue metoprolol, patient is not on anticoagulation due to history of gastrointestinal bleed * Lovenox for DVT prophylaxis, Protonix for GI prophylaxis * CODE STATUS is full code
[2023-06-12] MEDS: guaiFENesin-Coden 100-10MG/5ML 10 ML CUP PO PRN (18:19)
[2023-06-13] MEDS: methylPREDNISolone SOD SUCCI 125 MG/2 ML VIAL IV SCH ×5 (00:28→23:19)
[2023-06-13] MEDS: IPRATROPIUM-ALBUTEROL 3 ML NEB INHALATION SCH ×6 (00:44→20:15)
[2023-06-13] MEDS: guaiFENesin-Coden 100-10MG/5ML 10 ML CUP PO PRN ×3 (04:34→19:32)
[2023-06-13] MEDS: GABAPENTIN 300 MG CAP PO SCH ×3 (08:44→20:55)
[2023-06-13] MEDS: ATORVASTATIN 80 MG TAB PO SCH (08:44)
[2023-06-13] MEDS: METOPROLOL TARTRATE 25 MG TAB PO SCH ×2 (08:44→20:54)
[2023-06-13] MEDS: CHOLECALCIFEROL 25 MCG (1000 IU) TABLET PO SCH (08:44)
[2023-06-13] MEDS: ENOXAPARIN 40 MG/0.4 ML SYRINGE SQ SCH (08:44)
[2023-06-13] MEDS: PANTOPRAZOLE 40 MG TABLET PO SCH (08:44)
[2023-06-13] MEDS: guaiFENesin 600 MG TABLET.ER PO SCH ×2 (08:44→20:54)
[2023-06-13] MEDS: ISOSORBIDE MONONITRATE ER 30 MG TAB.ER.24H PO SCH (08:44)
[2023-06-13] MEDS: ALPRAZolam 0.25 MG TAB PO PRN ×3 (08:51→20:55)
[2023-06-13] MEDS: BUDESONIDE 1 MG/2 ML NEBU INHALATION SCH ×2 (08:56→20:15)
[2023-06-13] MEDS: FORMOTEROL FUMARATE 20 MCG/2 ML NEBU INHALATION SCH ×2 (08:57→20:15)
[2023-06-13 11:04] LABS: HCT 34.8 % (39.6-50.0); HGB 11.4 g/dL (13.0-17.0); MCH 30.2 pg (27.0-32.0); MCHC 32.8 g/dL (32.0-37.0); MCV 92.3 FL (80.0-97.0); Mean Platelet Volume 9.5 FL (9.5-12.2); NRBC Per 100 WBC 0 X 10*3/uL (0.00-0.01); Platelet Count 309 X 10*3/uL (140-440); RBC 3.77 X 10*6/uL (4.40-5.60); RDW 13.8 % (11.5-14.5); WBC 8.57 X 10*3/uL (4.50-10.00)
[2023-06-13 11:21] LABS: Blood Urea Nitrogen 11.5 mg/dL (9.0-27.0); Calcium 9.2 mg/dL (8.7-10.3); Carbon Dioxide 33.3 mmol/L (21.6-31.8); Chloride 93 mmol/L (96-109); Glucose 127 mg/dL (70-110); Potassium 4.7 mmol/L (3.5-5.5); Sodium 133 mmol/L (135-145)
--- NOTE | 2023-06-13 12:48 | P.PN ---
Subjective Progress Note Date: 06/13/23 * 62-year-old gentleman with past medical history significant for COPD, paroxysmal atrial fibrillation, coronary artery disease, history of anxiety, obstructive sleep apnea, history of gastrointestinal bleed, history of gastrointestinal bleed, nicotine use presents to the emergency department with complaints of acute respiratory distress, shortness of breath. Patient states symptom onset was few hours prior to presentation. Patient said he was not able to catch his breath and was noted to be in significant distress. Patient was placed on CPAP. Workup initiated in ER included a chest x-ray which was negative for pneumothorax did show changes consistent with COPD. Patient was noted to be desaturating and was transitioned to BiPAP. Was given IV fluids, breathing treatments IV Solu-Medrol patient was noted to have significant anxiety and was given ketamine and ED. Medical ICU team was consulted and patient was transferred to ICU for further management * Further workup in ER included an EKG which showed sinus rhythm. Blood work obtained included CBC which showed WBC count of 10.6 hemoglobin 14.4 platelet count of 369, INR of 0.9 * Serum chemistry showed sodium 135 potassium 4.3 chloride 92 BUN 7 creatinine 0.60 lactate of 2.8 * Patient tested negative for influenza, COVID, however positive for RSV * Patient admitted to medical ICU treated with noninvasive ventilation * 06/12/2023: Patient seen and evaluated bedside, on evaluation patient is off BiPAP, 4 L of oxygen noted. CBC showed WBC count of 7.1 hemoglobin of 12, serum chemistry reviewed sodium 130 Jenifer 0.54 CRP 1.5 * 06/13/2023: Patient seen and evaluated bedside, patient moved out of ICU states breathing is improved, continue to remains on oxygen. Continue patient on breathing treatments, continue IV Solu-Medrol. Procalcitonin negative CRP 1.5 REVIEW OF SYSTEMS: Cough, shortness of breath, wheezing improved CONSTITUTIONAL: No fever, no malaise, no fatigue. HEENT: No recent visual problems or hearing problems. Denied any sore throat. CARDIOVASCULAR: No chest pain, orthopnea, PND, no palpitations, no syncope. PULMONARY:Cough, shortness of breath, wheezing improved GASTROINTESTINAL: No diarrhea, no nausea, no vomiting, no abdominal pain. NEUROLOGICAL: No headaches, no weakness, no numbness. HEMATOLOGICAL: Denies any bleeding or petechiae. GENITOURINARY: Denies any burning micturition, frequency, or urgency. MUSCULOSKELETAL/RHEUMATOLOGICAL: Denies any joint pain, swelling, or any muscle pain. ENDOCRINE: Denies any polyuria or polydipsia. PHYSICAL EXAMINATION: GENERAL: The patient is alert and oriented x3, acute distress resolved on nasal cannula HEENT: Pupils are round and equally reacting to light. EOMI. CARDIOVASCULAR: S1 and S2 present. No murmurs, rubs, or gallops. PULMONARY: , decreased breath sounds, no wheeze no rhonchi ABDOMEN: Soft, nontender, nondistended, normoactive bowel sounds. No palpable organomegaly. MUSCULOSKELETAL: No joint swelling or deformity. EXTREMITIES: No cyanosis, clubbing, or pedal edema. NEUROLOGICAL: Gross neurological examination did not reveal any focal deficits. SKIN: No rashes. Objective - Vital Signs Vital signs: Vital Signs Temp 97.6 F 06/13/23 07:25 Pulse 82 06/13/23 12:17 Resp 21 06/13/23 07:25 BP 129/80 06/13/23 07:25 Pulse Ox 98 06/13/23 08:57 FiO2 50 06/13/23 04:21 Intake & Output 06/12/23 06/13/23 06/13/23 18:59 06:59 18:59 Intake Total 1790 Output Total 1275 925 Balance 515 -925 Intake: IV 110 0.9 NS 70 Invasive Line 1 40 Intake, IV Titration 40 Amount Sodium Chloride 0.9% 1, 40 000 ml @ 20 mls/hr IV . Q24H STA Rx#:[id number] Oral 1640 Output: Urine 1275 925 Other: Voiding Method Urinal Urinal # Bowel Movements 0 - Labs CBC & Chem 7: 06/13/23 05:57 06/13/23 05:57 Labs: Abnormal Lab Results - Last 24 Hours (Table) 06/13/23 06/13/23 Range/Units 05:57 05:57 RBC 3.77 L (4.40-5.60) X 10*6/uL Hgb 11.4 L (13.0-17.0) g/dL Hct 34.8 L (39.6-50.0) % Sodium 133 L (135-145) mmol/L Chloride 93 L (96-109) mmol/L Carbon Dioxide 33.3 H (21.6-31.8) mmol/L Creatinine 0.5 L (0.6-1.5) mg/dL BUN/Creatinine Ratio 23.00 H (12.00-20.00) Ratio Glucose 127 H (70-110) mg/dL Microbiology - Last 24 Hours (Table) 06/11/23 05:14 Blood Culture - Preliminary Blood 06/11/23 05:29 Blood Culture - Preliminary Blood Assessment and Plan Assessment: Assessment and plan * Acute hypoxic respiratory failure secondary to RSV * Acute tracheobronchitis with COPD exacerbation * RSV viral infection * History of paroxysmal atrial fibrillation * History of gastrointestinal bleeding * History of left lower extremity DVT * History of anxiety and depression * History of sleep apnea on CPAP at home * Gastroesophageal reflux disease * History of hypertension * In regards to acute respiratory distress, weaned off BiPAP, oxygen supplementation through nasal cannula, continue IV Solu-Medrol, breathing treatments, pulmonary medicine consulted * In regards to history of tracheobronchitis continue patient on noninvasive ventilation, continue IV Solu-Medrol * In regards to history of sleep apnea, continue noninvasive ventilation as needed * In regards to history of anxiety as needed IV Ativan ordered for panic attack * In regards to paroxysmal atrial fibrillation continue metoprolol, patient is not on anticoagulation due to history of gastrointestinal bleed * Lovenox for DVT prophylaxis, Protonix for GI prophylaxis * CODE STATUS is full code
--- NOTE | 2023-06-13 13:48 | P.PN ---
Subjective Progress Note Date: 06/13/23 Pulmonary consult dated June 11, 2023. 62-year-old male with history of severe COPD. His FEV1 is 27% of predicted. He sees one of my partners in the office for his COPD. The patient came into the emergency department on June 11, at 430 5 in the morning, complaining of severe respiratory distress. He was brought in by EMS. He had significant conversational dyspnea, and could not speak in full sentences. The patient was placed on BiPAP, with settings of 12/5 and 100% initially. The patient did test positive for RSV. The patient is currently on saline at KVO. The patient was admitted to the intensive care unit for further monitoring and management. In addition to severe COPD, the patient has a history of atrial fibrillation, coronary disease, deep vein thrombosis, GERD, GI bleed, hyperlipidemia, hypertension, osteoarthritis, and sleep apnea syndrome. In addition, the patient has had heart catheterization with stent placement. White count was 10.6, hemoglobin 14.4, hematocrit 45.1, with a normal platelet count. Coagulation studies are normal. Blood gases show pO2 41, pCO2 of 80, pH is 7.28. Sodium 135, potassium 4.3, chloride 92, CO2 35, BUN 7, creatinine 0.63. Lactic acid initially was 2.8. Repeat was 1.4. He did test positive for RSV. N-terminal proBNP was 357. Troponin was negative. Chest x-ray shows changes of COPD, and possible infiltrate, in the right upper lobe. Progress note dated June 12, 2023. 62-year-old male with history of severe/end-stage COPD, and an FEV1 that is only 27% of predicted. The patient was admitted to the intensive care unit, for respiratory failure, COPD exacerbation, and RSV tracheobronchitis. The patient is either on 4 L by nasal cannula, or BiPAP, with settings of 12/5, and 50%. In addition, the patient is getting saline at 20 cc an hour. He appears much more comfortable today than yesterday. We did add some Xanax, 0.25 mg 3 times a day. White count is 7.1, hemoglobin 12, hematocrit 37.8, platelet count was normal. Sodium 130, potassium 4.9, chloride 94, CO2 35, BUN 13, creatinine 0.54. Calcium is 9.2, and C-reactive protein is 1.5. Procalcitonin level is 0.04. Chest x-ray shows some patchy density, right upper lobe. This area continues to improve. The patient is seen today June 13, 2023 in follow-up on the regular medical floor. He is currently resting in bed. Awake and alert in no acute distress. He is maintaining O2 saturations in the 90s on 4 L/min per nasal cannula which is his home dose usually 3-4. He did utilize BiPAP 12/5 and 50% FiO2. His procalcitonin was 0.13. He is continued on Zosyn. Blood cultures reveal no growth. White count 8.5. Hemoglobin 11.4. Platelets 309. Sodium 133. Potassium 4.7. Bicarb 33. BUN 12. Creatinine 0.5. Glucose 127. Objective - Vital Signs Vital signs: Vital Signs Temp 97.6 F 06/13/23 07:25 Pulse 82 06/13/23 12:17 Resp 21 06/13/23 07:25 BP 129/80 06/13/23 07:25 Pulse Ox 98 06/13/23 08:57 FiO2 50 06/13/23 04:21 Intake & Output 06/12/23 06/13/23 06/13/23 18:59 06:59 18:59 Intake Total 1790 Output Total 1275 925 Balance 515 -925 Intake: IV 110 0.9 NS 70 Invasive Line 1 40 Intake, IV Titration 40 Amount Sodium Chloride 0.9% 1, 40 000 ml @ 20 mls/hr IV . Q24H STA Rx#:[id number] Oral 1640 Output: Urine 1275 925 Other: Voiding Method Urinal Urinal # Bowel Movements 0 - Exam GENERAL EXAM: Alert, pleasant 62-year-old male patient, on 4 L nasal cannula, fairly comfortable in no apparent distress. HEAD: Normocephalic. EYES: Normal reaction of pupils, equal size. NOSE: Clear with pink turbinates. THROAT: No erythema or exudates. NECK: No masses, no JVD. CHEST: No chest wall deformity. LUNGS: Equal air entry with bilateral end expiratory wheeze, diminished. CVS: S1 and S2 normal with no audible murmur, regular rhythm. ABDOMEN: No hepatosplenomegaly, normal bowel sounds, no guarding or rigidity. SPINE: No scoliosis or deformity SKIN: No rashes CENTRAL NERVOUS SYSTEM: No focal deficits, tone is normal in all 4 extremities. EXTREMITIES: There is no peripheral edema. No clubbing, no cyanosis. Peripheral pulses are intact. - Labs CBC & Chem 7: 06/13/23 05:57 06/13/23 05:57 Labs: Abnormal Lab Results - Last 24 Hours (Table) 06/13/23 06/13/23 Range/Units 05:57 05:57 RBC 3.77 L (4.40-5.60) X 10*6/uL Hgb 11.4 L (13.0-17.0) g/dL Hct 34.8 L (39.6-50.0) % Sodium 133 L (135-145) mmol/L Chloride 93 L (96-109) mmol/L Carbon Dioxide 33.3 H (21.6-31.8) mmol/L Creatinine 0.5 L (0.6-1.5) mg/dL BUN/Creatinine Ratio 23.00 H (12.00-20.00) Ratio Glucose 127 H (70-110) mg/dL Microbiology - Last 24 Hours (Table) 06/11/23 05:14 Blood Culture - Preliminary Blood 06/11/23 05:29 Blood Culture - Preliminary Blood Assessment and Plan Assessment: Acute hypoxemic and hypercapnic respiratory failure secondary to severe COPD, with an FEV1 that is 27% of predicted Chronic hypoxemic respiratory failure, with home oxygen 03/12 History of coronary artery disease, status post PCI with stent placement History of atrial fibrillation History of deep vein thrombosis History of GI bleed, and gastroesophageal reflux disease History of hyperlipidemia History of hypertension History of pneumonia History of obstructive sleep apnea syndrome, on home CPAP History of osteoarthritis History of pneumothorax Multiple other medical problems and comorbidities Plan: The patient was seen and evaluated Labs and medications reviewed Remains stable on 4 L nasal cannula Continued on Zosyn Continued on bronchodilators and steroids Lovenox for DVT prophylaxis Continued on Mucinex and Tessalon Perles We will continue to follow and make further recommendations based on her cli nical status I have personally seen and examined the patient, performed the documentation and the assessment and plan as written. Number of minutes spent on the visit: 10.
[2023-06-13] MEDS: ACETAMINOPHEN TAB 325 MG TAB PO PRN (19:32)
[2023-06-14] MEDS: IPRATROPIUM-ALBUTEROL 3 ML NEB INHALATION SCH ×7 (04:56→23:46)
[2023-06-14] MEDS: methylPREDNISolone SOD SUCCI 125 MG/2 ML VIAL IV SCH ×2 (05:30→13:08)
[2023-06-14] MEDS: ACETAMINOPHEN TAB 325 MG TAB PO PRN (05:32)
[2023-06-14] MEDS: FORMOTEROL FUMARATE 20 MCG/2 ML NEBU INHALATION SCH ×2 (08:44→21:59)
[2023-06-14] MEDS: BUDESONIDE 1 MG/2 ML NEBU INHALATION SCH ×2 (08:44→21:59)
[2023-06-14] MEDS: METOPROLOL TARTRATE 25 MG TAB PO SCH ×2 (09:08→20:26)
[2023-06-14] MEDS: GABAPENTIN 300 MG CAP PO SCH ×3 (09:08→20:26)
[2023-06-14] MEDS: ATORVASTATIN 80 MG TAB PO SCH (09:08)
[2023-06-14] MEDS: guaiFENesin 600 MG TABLET.ER PO SCH ×2 (09:08→20:26)
[2023-06-14] MEDS: CHOLECALCIFEROL 25 MCG (1000 IU) TABLET PO SCH (09:08)
[2023-06-14] MEDS: ENOXAPARIN 40 MG/0.4 ML SYRINGE SQ SCH (09:08)
[2023-06-14] MEDS: ISOSORBIDE MONONITRATE ER 30 MG TAB.ER.24H PO SCH (09:08)
[2023-06-14] MEDS: ALPRAZolam 0.25 MG TAB PO PRN ×2 (09:11→17:48)
[2023-06-14] MEDS: PANTOPRAZOLE 40 MG TABLET PO SCH (09:11)
[2023-06-14 11:44] LABS: BUN/Creat Ratio 19.83 Ratio (12.00-20.00); Blood Urea Nitrogen 11.9 mg/dL (9.0-27.0); Calcium 9.9 mg/dL (8.7-10.3); Carbon Dioxide 31.6 mmol/L (21.6-31.8); Chloride 92 mmol/L (96-109); Glucose 118 mg/dL (70-110); Potassium 4.7 mmol/L (3.5-5.5); Sodium 135 mmol/L (135-145)
--- NOTE | 2023-06-14 12:20 | P.PN ---
Subjective Progress Note Date: 06/14/23 * 62-year-old gentleman with past medical history significant for COPD, paroxysmal atrial fibrillation, coronary artery disease, history of anxiety, obstructive sleep apnea, history of gastrointestinal bleed, history of gastrointestinal bleed, nicotine use presents to the emergency department with complaints of acute respiratory distress, shortness of breath. Patient states symptom onset was few hours prior to presentation. Patient said he was not able to catch his breath and was noted to be in significant distress. Patient was placed on CPAP. Workup initiated in ER included a chest x-ray which was negative for pneumothorax did show changes consistent with COPD. Patient was noted to be desaturating and was transitioned to BiPAP. Was given IV fluids, breathing treatments IV Solu-Medrol patient was noted to have significant anxiety and was given ketamine and ED. Medical ICU team was consulted and patient was transferred to ICU for further management * Further workup in ER included an EKG which showed sinus rhythm. Blood work obtained included CBC which showed WBC count of 10.6 hemoglobin 14.4 platelet count of 369, INR of 0.9 * Serum chemistry showed sodium 135 potassium 4.3 chloride 92 BUN 7 creatinine 0.60 lactate of 2.8 * Patient tested negative for influenza, COVID, however positive for RSV * Patient admitted to medical ICU treated with noninvasive ventilation * 06/12/2023: Patient seen and evaluated bedside, on evaluation patient is off BiPAP, 4 L of oxygen noted. CBC showed WBC count of 7.1 hemoglobin of 12, serum chemistry reviewed sodium 130 Jenifer 0.54 CRP 1.5 * 06/13/2023: Patient seen and evaluated bedside, patient moved out of ICU states breathing is improved, continue to remains on oxygen. Continue patient on breathing treatments, continue IV Solu-Medrol. Procalcitonin negative CRP 1.5 * 06/14/2023; patient seen and evaluated at bedside. Patient on 4 L of oxygen, b lood work reviewed, sodium 135 renal function within normal limits. Will discuss with case management regarding discharge planning REVIEW OF SYSTEMS: Cough, shortness of breath, wheezing improved CONSTITUTIONAL: No fever, no malaise, no fatigue. HEENT: No recent visual problems or hearing problems. Denied any sore throat. CARDIOVASCULAR: No chest pain, orthopnea, PND, no palpitations, no syncope. PULMONARY:Cough, shortness of breath, wheezing improved GASTROINTESTINAL: No diarrhea, no nausea, no vomiting, no abdominal pain. NEUROLOGICAL: No headaches, no weakness, no numbness. HEMATOLOGICAL: Denies any bleeding or petechiae. GENITOURINARY: Denies any burning micturition, frequency, or urgency. MUSCULOSKELETAL/RHEUMATOLOGICAL: Denies any joint pain, swelling, or any muscle pain. ENDOCRINE: Denies any polyuria or polydipsia. PHYSICAL EXAMINATION: GENERAL: The patient is alert and oriented x3, acute distress resolved on nasal cannula HEENT: Pupils are round and equally reacting to light. EOMI. CARDIOVASCULAR: S1 and S2 present. No murmurs, rubs, or gallops. PULMONARY: , decreased breath sounds, no wheeze no rhonchi ABDOMEN: Soft, nontender, nondistended, normoactive bowel sounds. No palpable organomegaly. MUSCULOSKELETAL: No joint swelling or deformity. EXTREMITIES: No cyanosis, clubbing, or pedal edema. NEUROLOGICAL: Gross neurological examination did not reveal any focal deficits. SKIN: No rashes. Objective - Vital Signs Vital signs: Vital Signs Temp 97.7 F 06/14/23 07:23 Pulse 68 06/14/23 12:07 Resp 19 06/14/23 07:23 BP 133/86 06/14/23 07:23 Pulse Ox 97 06/14/23 08:44 FiO2 50 06/14/23 04:57 Intake & Output 06/13/23 06/14/23 06/14/23 18:59 06:59 18:59 Intake Total 400 Output Total 1800 2100 Balance -1400 -2100 Intake: Oral 400 Output: Urine 1800 2100 Other: Voiding Method Urinal Urinal # Voids 1 - Labs CBC & Chem 7: 06/13/23 05:57 06/14/23 06:32 Labs: Abnormal Lab Results - Last 24 Hours (Table) 06/14/23 Range/Units 06:32 Chloride 92 L (96-109) mmol/L Glucose 118 H (70-110) mg/dL Microbiology - Last 24 Hours (Table) 06/11/23 05:14 Blood Culture - Preliminary Blood 06/11/23 05:29 Blood Culture - Preliminary Blood Assessment and Plan Assessment: Assessment and plan * Acute hypoxic respiratory failure secondary to RSV * Acute tracheobronchitis with COPD exacerbation * RSV viral infection * History of paroxysmal atrial fibrillation * History of gastrointestinal bleeding * History of left lower extremity DVT * History of anxiety and depression * History of sleep apnea on CPAP at home * Gastroesophageal reflux disease * History of hypertension * In regards to acute respiratory distress, weaned off BiPAP, oxygen supplementation through nasal cannula, continue IV Solu-Medrol weaned to BID f rom Q6hr , breathing treatments, pulmonary medicine consulted * In regards to history of tracheobronchitis continue patient on noninvasive ventilation, continue IV Solu-Medrol WEANED * In regards to history of sleep apnea, continue noninvasive ventilation as needed * In regards to history of anxiety as needed Ativan ordered for panic attack * In regards to paroxysmal atrial fibrillation continue metoprolol, patient is not on anticoagulation due to history of gastrointestinal bleed * Lovenox for DVT prophylaxis, Protonix for GI prophylaxis * CODE STATUS is full code
--- NOTE | 2023-06-14 14:21 | P.PN ---
Subjective Progress Note Date: 06/14/23 Pulmonary consult dated June 11, 2023. 62-year-old male with history of severe COPD. His FEV1 is 27% of predicted. He sees one of my partners in the office for his COPD. The patient came into the emergency department on June 11, at 430 5 in the morning, complaining of severe respiratory distress. He was brought in by EMS. He had significant conversational dyspnea, and could not speak in full sentences. The patient was placed on BiPAP, with settings of 12/5 and 100% initially. The patient did test positive for RSV. The patient is currently on saline at KVO. The patient was admitted to the intensive care unit for further monitoring and management. In addition to severe COPD, the patient has a history of atrial fibrillation, coronary disease, deep vein thrombosis, GERD, GI bleed, hyperlipidemia, hypertension, osteoarthritis, and sleep apnea syndrome. In addition, the patient has had heart catheterization with stent placement. White count was 10.6, hemoglobin 14.4, hematocrit 45.1, with a normal platelet count. Coagulation studies are normal. Blood gases show pO2 41, pCO2 of 80, pH is 7.28. Sodium 135, potassium 4.3, chloride 92, CO2 35, BUN 7, creatinine 0.63. Lactic acid initially was 2.8. Repeat was 1.4. He did test positive for RSV. N-terminal proBNP was 357. Troponin was negative. Chest x-ray shows changes of COPD, and possible infiltrate, in the right upper lobe. Progress note dated June 12, 2023. 62-year-old male with history of severe/end-stage COPD, and an FEV1 that is only 27% of predicted. The patient was admitted to the intensive care unit, for respiratory failure, COPD exacerbation, and RSV tracheobronchitis. The patient is either on 4 L by nasal cannula, or BiPAP, with settings of 12/5, and 50%. In addition, the patient is getting saline at 20 cc an hour. He appears much more comfortable today than yesterday. We did add some Xanax, 0.25 mg 3 times a day. White count is 7.1, hemoglobin 12, hematocrit 37.8, platelet count was normal. Sodium 130, potassium 4.9, chloride 94, CO2 35, BUN 13, creatinine 0.54. Calcium is 9.2, and C-reactive protein is 1.5. Procalcitonin level is 0.04. Chest x-ray shows some patchy density, right upper lobe. This area continues to improve. The patient is seen today June 13, 2023 in follow-up on the regular medical floor. He is currently resting in bed. Awake and alert in no acute distress. He is maintaining O2 saturations in the 90s on 4 L/min per nasal cannula which is his home dose usually 3-4. He did utilize BiPAP 12/5 and 50% FiO2. His procalcitonin was 0.13. He is continued on Zosyn. Blood cultures reveal no growth. White count 8.5. Hemoglobin 11.4. Platelets 309. Sodium 133. Potassium 4.7. Bicarb 33. BUN 12. Creatinine 0.5. Glucose 127. The patient is seen today June 14, 2023 in follow-up on the regular medical floor. He is sitting up in a chair at the bedside. Awake and alert in no acute distress. Maintaining good O2 saturations in the 90s on 4 L/min per nasal cannula. He did utilize BiPAP last night 12/5 and 50% FiO2. His procalcitonin was 0.04. He is continued on DuoNeb and elations, Pulmicort and performing scintillations, Solu-Medrol. His FEV1 value is 27% of predicted. Objective - Vital Signs Vital signs: Vital Signs Temp 97.7 F 06/14/23 07:23 Pulse 68 06/14/23 12:07 Resp 19 06/14/23 07:23 BP 133/86 06/14/23 07:23 Pulse Ox 97 06/14/23 08:44 FiO2 50 06/14/23 04:57 Intake & Output 06/13/23 06/14/23 06/14/23 18:59 06:59 18:59 Intake Total 400 Output Total 1800 2100 Balance -1400 -2099 Intake: Oral 400 Output: Urine 1800 2100 Other: Voiding Method Urinal Urinal # Voids 1 - Exam GENERAL EXAM: Alert, 62-year-old male patient, sitting up in a chair, on 4 L nasal cannula, comfortable in no apparent distress. HEAD: Normocephalic. EYES: Normal reaction of pupils, equal size. NOSE: Clear with pink turbinates. THROAT: No erythema or exudates. NECK: No masses, no JVD. CHEST: No chest wall deformity. LUNGS: Equal air entry with bilateral end expiratory wheeze, diminished. CVS: S1 and S2 normal with no audible murmur, regular rhythm. ABDOMEN: No hepatosplenomegaly, normal bowel sounds, no guarding or rigidity. SPINE: No scoliosis or deformity SKIN: No rashes CENTRAL NERVOUS SYSTEM: No focal deficits, tone is normal in all 4 extremities. EXTREMITIES: There is no peripheral edema. No clubbing, no cyanosis. Peripheral pulses are intact. - Labs CBC & Chem 7: 06/13/23 05:57 06/14/23 06:32 Labs: Abnormal Lab Results - Last 24 Hours (Table) 06/14/23 Range/Units 06:32 Chloride 92 L (96-109) mmol/L Glucose 118 H (70-110) mg/dL Microbiology - Last 24 Hours (Table) 06/11/23 05:14 Blood Culture - Preliminary Blood 06/11/23 05:29 Blood Culture - Preliminary Blood Assessment and Plan Assessment: Acute hypoxemic and hypercapnic respiratory failure secondary to severe COPD, with an FEV1 that is 27% of predicted Chronic hypoxemic respiratory failure, with home oxygen 03/12 at 4 L/min per nasal cannula History of coronary artery disease, status post PCI with stent placement History of atrial fibrillation History of deep vein thrombosis History of GI bleed, and gastroesophageal reflux disease History of hyperlipidemia History of hypertension History of pneumonia History of obstructive sleep apnea syndrome, on home CPAP History of osteoarthritis History of pneumothorax Multiple other medical problems and comorbidities Plan: The patient was seen and evaluated Labs and medications reviewed Remains stable on 4 L nasal cannula Procalcitonin negative, antibiotics discontinued Continue the current treatment plan We will continue to follow I have personally seen and examined the patient, performed the documentation and the assessment and plan as written. Number of minutes spent on the visit: 10.
[2023-06-14] MEDS: guaiFENesin-Coden 100-10MG/5ML 10 ML CUP PO PRN (17:48)
[2023-06-14] MEDS ORDERED: methylPREDNISolone SOD SUCCI 40 MG/ML 1 ML VIAL IV SCH (21:00)
[2023-06-15] MEDS: IPRATROPIUM-ALBUTEROL 3 ML NEB INHALATION SCH ×4 (03:36→16:17)
[2023-06-15] MEDS ORDERED: predniSONE 20 MG TAB PO SCH (09:00)
[2023-06-15] MEDS: BUDESONIDE 1 MG/2 ML NEBU INHALATION SCH (09:19)
[2023-06-15] MEDS: FORMOTEROL FUMARATE 20 MCG/2 ML NEBU INHALATION SCH (09:19)
[2023-06-15] MEDS: CHOLECALCIFEROL 25 MCG (1000 IU) TABLET PO SCH (09:40)
[2023-06-15] MEDS: PANTOPRAZOLE 40 MG TABLET PO SCH (09:40)
[2023-06-15] MEDS: GABAPENTIN 300 MG CAP PO SCH (09:40)
[2023-06-15] MEDS: ENOXAPARIN 40 MG/0.4 ML SYRINGE SQ SCH (09:40)
[2023-06-15] MEDS: ATORVASTATIN 80 MG TAB PO SCH (09:41)
[2023-06-15] MEDS: METOPROLOL TARTRATE 25 MG TAB PO SCH (09:41)
[2023-06-15] MEDS: guaiFENesin 600 MG TABLET.ER PO SCH (09:41)
[2023-06-15] MEDS: ISOSORBIDE MONONITRATE ER 30 MG TAB.ER.24H PO SCH (09:41)
[2023-06-15 09:43] LABS: HCT 41.2 % (39.6-50.0); HGB 13.2 g/dL (13.0-17.0); MCH 29.8 pg (27.0-32.0); Mean Platelet Volume 10.5 FL (9.5-12.2); NRBC Per 100 WBC 0 X 10*3/uL (0.00-0.01); Platelet Count 290 X 10*3/uL (140-440); RBC 4.43 X 10*6/uL (4.40-5.60); RDW 13.8 % (11.5-14.5); WBC 10.71 X 10*3/uL (4.50-10.00)
[2023-06-15] MEDS: ALPRAZolam 0.25 MG TAB PO PRN (10:25)
[2023-06-15] MEDS: guaiFENesin-Coden 100-10MG/5ML 10 ML CUP PO PRN (10:25)
--- NOTE | 2023-06-15 11:10 | P.PN ---
Subjective Progress Note Date: 06/15/23 Principal diagnosis: COPD exacerbation, respiratory failure. Pulmonary consult dated June 11, 2023. 62-year-old male with history of severe COPD. His FEV1 is 27% of predicted. He sees one of my partners in the office for his COPD. The patient came into the emergency department on June 11, at 430 5 in the morning, complaining of severe respiratory distress. He was brought in by EMS. He had significant conversational dyspnea, and could not speak in full sentences. The patient was placed on BiPAP, with settings of 12/5 and 100% initially. The patient did test positive for RSV. The patient is currently on saline at KVO. The patient was admitted to the intensive care unit for further monitoring and management. In addition to severe COPD, the patient has a history of atrial fibrillation, coronary disease, deep vein thrombosis, GERD, GI bleed, hyperlipidemia, hypertension, osteoarthritis, and sleep apnea syndrome. In addition, the patient has had heart catheterization with stent placement. White count was 10.6, hemoglobin 14.4, hematocrit 45.1, with a normal platelet count. Coagulation studies are normal. Blood gases show pO2 41, pCO2 of 80, pH is 7.28. Sodium 135, potassium 4.3, chloride 92, CO2 35, BUN 7, creatinine 0.63. Lactic acid initially was 2.8. Repeat was 1.4. He did test positive for RSV. N-terminal proBNP was 357. Troponin was negative. Chest x-ray shows changes of COPD, and possible infiltrate, in the right upper lobe. Progress note dated June 12, 2023. 62-year-old male with history of severe/end-stage COPD, and an FEV1 that is only 27% of predicted. The patient was admitted to the intensive care unit, for respiratory failure, COPD exacerbation, and RSV tracheobronchitis. The patient is either on 4 L by nasal cannula, or BiPAP, with settings of 12/5, and 50%. In addition, the patient is getting saline at 20 cc an hour. He appears much more comfortable today than yesterday. We did add some Xanax, 0.25 mg 3 times a day. White count is 7.1, hemoglobin 12, hematocrit 37.8, platelet count was normal. Sodium 130, potassium 4.9, chloride 94, CO2 35, BUN 13, creatinine 0.54. Calcium is 9.2, and C-reactive protein is 1.5. Procalcitonin level is 0.04. Chest x-ray shows some patchy density, right upper lobe. This area continues to improve. The patient is seen today June 13, 2023 in follow-up on the regular medical floor. He is currently resting in bed. Awake and alert in no acute distress. He is maintaining O2 saturations in the 90s on 4 L/min per nasal cannula which is his home dose usually 3-4. He did utilize BiPAP 12/5 and 50% FiO2. His procalcitonin was 0.13. He is continued on Zosyn. Blood cultures reveal no growth. White count 8.5. Hemoglobin 11.4. Platelets 309. Sodium 133. Potassium 4.7. Bicarb 33. BUN 12. Creatinine 0.5. Glucose 127. The patient is seen today June 14, 2023 in follow-up on the regular medical floor. He is sitting up in a chair at the bedside. Awake and alert in no acute distress. Maintaining good O2 saturations in the 90s on 4 L/min per nasal cannula. He did utilize BiPAP last night 12/5 and 50% FiO2. His procalcitonin was 0.04. He is continued on DuoNeb and elations, Pulmicort and performing scintillations, Solu-Medrol. His FEV1 value is 27% of predicted. Progress note dated June 15, 2023. This is a 62-year-old male, with a history of severe stage IV COPD. His FEV1 is 24% of predicted. When he walked into the room this morning, the patient was very angry, and we did not know exactly why. The patient continues on 4 L of oxygen. He does have a BiPAP device in his room that he uses intermittently, 12/5, and 50%. The patient was admitted with a COPD exacerbation, likely triggered and complicated by an RSV infection. The patient has been treated with budesonide, formoterol, albuterol, ipratropium bromide, and Solu-Medrol. Clinically, the patient is improved. The patient had a complete pulmonary function test in March 2023, which showed an FEV1 that was only 24% of predicted. Apparently, my partner has talked him about the [place] valve. The patient had a number of questions today, all of which were answered. In fact, we feel the patient is much improved, and back to baseline. He uses oxygen at home at 4 L. His budesonide and formoterol are converted to Symbicort, and his Solu-Medrol is converted to prednisone 40 mg a day. From my perspective, the patient could be discharged home. He apparently is also giving the nurses a hard time as well. White count is 10.7, hemoglobin 13.2, hematocrit 41.2, platelet count 290,000. The patient continues to vape, but he denies smoking cigarettes. Objective - Vital Signs Vital signs: Vital Signs Temp 97.5 F L 06/15/23 06:56 Pulse 72 06/15/23 09:26 Resp 19 06/15/23 06:56 BP 148/84 06/15/23 06:56 Pulse Ox 100 06/15/23 06:56 FiO2 50 06/15/23 03:37 Intake & Output 06/14/23 06/15/23 06/15/23 18:59 06:59 18:59 Intake Total 960 Output Total 300 2450 500 Balance -300 -1490 -500 Intake: Oral 960 Output: Urine 300 2450 500 Other: Voiding Method Urinal # Bowel Movements 1 - Exam No acute distress, somnolent, currently on 4 L nasal cannula, in no obvious respiratory difficulty or distress. HEENT examination is grossly unremarkable. Neck supple. Full range of motion. No adenopathy thyromegaly or neck vein distention. Cardiovascular examination reveals regular rhythm rate. S1-S2 normal. No S3 or S4. No discernible murmur noted. Heart sounds are distant. Heart rate 72 bpm. Lungs reveal severely diminished bilateral breath sounds. Scattered rhonchi and wheezes are noted. No crackles. 4 L saturation is 98 %. Abdomen soft with bowel sounds. No masses or tenderness. Extremities are intact. No cyanosis clubbing or edema. Skin is without rash or lesion. Neurologic examination is brief but nonfocal. - Labs CBC & Chem 7: 06/15/23 06:40 06/14/23 06:32 Labs: Abnormal Lab Results - Last 24 Hours (Table) 06/14/23 06/15/23 Range/Units 06:32 06:40 WBC 10.71 H (4.50-10.00) X 10*3/uL Chloride 92 L (96-109) mmol/L Glucose 118 H (70-110) mg/dL Microbiology - Last 24 Hours (Table) 06/11/23 05:14 Blood Culture - Preliminary Blood 06/11/23 05:29 Blood Culture - Preliminary Blood Assessment and Plan Assessment: Acute hypoxemic and hypercapnic respiratory failure secondary to severe COPD, with an FEV1 that is 24 % of predicted. Chronic hypoxemic respiratory failure, with home oxygen 24/7, at 4 L. History of coronary artery disease, status post PCI with stent placement. History of atrial fibrillation. History of deep vein thrombosis. History of GI bleed, and gastroesophageal reflux disease. History of hyperlipidemia. History of hypertension. History of pneumonia. History of obstructive sleep apnea syndrome, on home CPAP. History of osteoarthritis. History of pneumothorax. Multiple other medical problems and comorbidities. Plan: Plan dated June 11, 2023. The patient is admitted to the intensive care unit, for further monitoring and management. He was placed on BiPAP. The FiO2 was turned down to 50%. Labs, x- rays, and medications are reviewed. The patient started on appropriate medications including albuterol sulfate, ipratropium bromide, formoterol, budesonide, and Solu-Medrol. The patient's overall prognosis remains guarded. The patient did test positive for respiratory syncytial virus. We will continue to follow the patient, make recommendations along the way. His chest x-ray suggested possible infiltrate, right upper lobe. A procalcitonin level was ordered. If elevated, the patient will likely receive some antibiotics. Clinically, he appears reasonably stable. Plan dated June 12, 2023. The patient is seen today in room 259. The patient is either on BiPAP, or nasal cannula, at 4 L. The patient appears to be much more comfortable, and seems to be responding to the medications that we added to his regimen. Currently, he is on Pulmicort, formoterol, albuterol, ipratropium bromide, and Solu-Medrol. The patient is not on any antibiotics, as the patient's procalcitonin level was normal. We will continue to follow. I told the nurses that later today, if he continues to be stable, he could be transferred out of the intensive care unit. We did add some Xanax 0.25 mg 3 times a day. The patient's overall prognosis remains guarded. Labs, x-rays, and all medications are reviewed. Plan dated June 15, 2023. The patient is seen today in room 482. The patient was initially admitted to the intensive care unit, but did well, and was transition, to the general medical floor. The patient is on O2 at 4 L, which is what he uses at home. He also has a BiPAP device in the room, that is used intermittently. He has not used it every day. The patient has been treated with albuterol sulfate, ipratropium bromide, Solu-Medrol, budesonide solution, and formoterol solution. The patient is much improved. He will be switched to Symbicort, and his Solu- Medrol will be converted to prednisone. From the pulmonary perspective, the patient is stable for discharge. He has a lot of questions, and they should be directed towards his primary operations management trainee. He ask about the [place] valve, and also about a sleep study. Prognosis is guarded. Time with Patient: Less than 30
[2023-06-15 12:33] LABS: C Reactive Protein <0.30 mg/dL (0.00-0.80)
[2023-06-15 12:50] LABS: BUN/Creat Ratio 22.43 Ratio (12.00-20.00); Blood Urea Nitrogen 15.7 mg/dL (9.0-27.0); Calcium 9.8 mg/dL (8.7-10.3); Carbon Dioxide 29.5 mmol/L (21.6-31.8); Chloride 93 mmol/L (96-109); Glucose 95 mg/dL (70-110); Sodium 134 mmol/L (135-145)
--- NOTE | 2023-06-15 13:47 | P.DS ---
Providers Date of admission: 06/11/23 06:26 Expected date of discharge: 06/15/23 Attending physician: Og English Consults: 06/11/23 06:25 Consult Physician Routine Consulting Provider: Klaus Vergara Reason/Comments: icu Do you want consulting provider notified?: Already Contacted Primary care physician: [facility] Hospital Course: * 62-year-old gentleman with past medical history significant for COPD, paroxysmal atrial fibrillation, coronary artery disease, history of anxiety, obstructive sleep apnea, history of gastrointestinal bleed, history of gastrointestinal bleed, nicotine use presents to the emergency department with complaints of acute respiratory distress, shortness of breath. Patient states symptom onset was few hours prior to presentation. Patient said he was not able to catch his breath and was noted to be in significant distress. Patient was placed on CPAP. Workup initiated in ER included a chest x-ray which was negative for pneumothorax did show changes consistent with COPD. Patient was noted to be desaturating and was transitioned to BiPAP. Was given IV fluids, breathing treatments IV Solu-Medrol patient was noted to have significant anxiety and was given ketamine and ED. Medical ICU team was consulted and patient was transferred to ICU for further management * Further workup in ER included an EKG which showed sinus rhythm. Blood work obtained included CBC which showed WBC count of 10.6 hemoglobin 14.4 platelet count of 369, INR of 0.9 * Serum chemistry showed sodium 135 potassium 4.3 chloride 92 BUN 7 creatinine 0.60 lactate of 2.8 * Patient tested negative for influenza, COVID, however positive for RSV * Patient admitted to medical ICU treated with noninvasive ventilation * 06/12/2023: Patient seen and evaluated bedside, on evaluation patient is off BiPAP, 4 L of oxygen noted. CBC showed WBC count of 7.1 hemoglobin of 12, serum chemistry reviewed sodium 130 Jenifer 0.54 CRP 1.5 * 06/13/2023: Patient seen and evaluated bedside, patient moved out of ICU states breathing is improved, continue to remains on oxygen. Continue patient on breathing treatments, continue IV Solu-Medrol. Procalcitonin negative CRP 1.5 * 06/14/2023; patient seen and evaluated at bedside. Patient on 4 L of oxygen, blood work reviewed, sodium 135 renal function within normal limits. Will discuss with case management regarding discharge planning REVIEW OF SYSTEMS: Cough, shortness of breath, wheezing improved CONSTITUTIONAL: No fever, no malaise, no fatigue. HEENT: No recent visual problems or hearing problems. Denied any sore throat. CARDIOVASCULAR: No chest pain, orthopnea, PND, no palpitations, no syncope. PULMONARY:Cough, shortness of breath, wheezing improved GASTROINTESTINAL: No diarrhea, no nausea, no vomiting, no abdominal pain. NEUROLOGICAL: No headaches, no weakness, no numbness. HEMATOLOGICAL: Denies any bleeding or petechiae. GENITOURINARY: Denies any burning micturition, frequency, or urgency. MUSCULOSKELETAL/RHEUMATOLOGICAL: Denies any joint pain, swelling, or any muscle pain. ENDOCRINE: Denies any polyuria or polydipsia. PHYSICAL EXAMINATION: GENERAL: The patient is alert and oriented x3, acute distress resolved on nasal cannula HEENT: Pupils are round and equally reacting to light. EOMI. CARDIOVASCULAR: S1 and S2 present. No murmurs, rubs, or gallops. PULMONARY: , Improved breath sounds bilaterally ABDOMEN: Soft, nontender, nondistended, normoactive bowel sounds. No palpable organomegaly. MUSCULOSKELETAL: No joint swelling or deformity. EXTREMITIES: No cyanosis, clubbing, or pedal edema. NEUROLOGICAL: Gross neurological examination did not reveal any focal deficits. SKIN: No rashes. Assessment and plan * Acute hypoxic respiratory failure secondary to RSV * Acute tracheobronchitis with COPD exacerbation * RSV viral infection * History of paroxysmal atrial fibrillation * History of gastrointestinal bleeding * History of left lower extremity DVT * History of anxiety and depression * History of sleep apnea on CPAP at home * Gastroesophageal reflux disease * History of hypertension * In regards to acute respiratory distress, weaned off BiPAP, oxygen supplementation through nasal cannula, continue IV Solu-Medrol weaned to BID from Q6hr upon discharge, oral prednisone given, patient already has concentrator at home * In regards to history of tracheobronchitis continue patient on noninvasive ventilation, received IV Solu-Medrol WEANED to oral prednisone * In regards to history of sleep apnea, continue noninvasive ventilation as needed, patient does have history of packed home * In regards to history of anxiety as needed Ativan ordered for panic attack, using patient will need outpatient follow-up with PCP * In regards to paroxysmal atrial fibrillation continue metoprolol, patient is not on anticoagulation due to history of gastrointestinal bleed * Cleared for discharge by pulmonary medicine Patient Condition at Discharge: Fair Plan - Discharge Summary New Discharge Prescriptions: New predniSONE [Deltasone] 20 mg PO DAILY 5 Days #5 tab guaiFENesin [Mucinex] 600 mg PO Q12HR 5 Days #10 tab Continue Albuterol Sulfate [Ventolin HFA] 2 puff INHALATION RT-Q6H PRN PRN Reason: Shortness Of Breath Or Wheezing Metoprolol Tartrate 25 mg PO BID Gabapentin 600 mg PO TID Fluticasone/Umeclidin/Vilanter [Trelegy Ellipta 100-62.5-25] 1 puff I NHALATION RT-DAILY Isosorbide Mononitrate [Isosorbide Mononitrate ER] 30 mg PO DAILY Atorvastatin Calcium [Lipitor] 80 mg PO DAILY Albuterol Nebulized [Ventolin Nebulized] 2.5 mg INHALATION RT-TID Pantoprazole Sodium 20 mg PO DAILY Furosemide [Lasix] 20 mg PO DAILY Ibuprofen 800 mg PO Q8H PRN PRN Reason: Pain Cholecalciferol [Vitamin D3 (25 Mcg = 1000 Iu)] 50 mcg PO DAILY Discontinued predniSONE 10 mg PO DAILY Discharge Medication List Albuterol Sulfate [Ventolin HFA] 2 puff INHALATION RT-Q6H PRN 11/13/14 [History] Metoprolol Tartrate 25 mg PO BID 07/27/15 [History] Gabapentin 600 mg PO TID 03/21/16 [History] Albuterol Nebulized [Ventolin Nebulized] 2.5 mg INHALATION RT-TID 12/15/21 [History] Fluticasone/Umeclidin/Vilanter [Trelegy Ellipta 100-62.5-25] 1 puff INHALATION RT-DAILY 12/15/21 [History] Pantoprazole Sodium 20 mg PO DAILY 12/15/21 [History] Furosemide [Lasix] 20 mg PO DAILY 12/10/22 [History] Ibuprofen 800 mg PO Q8H PRN 12/10/22 [History] Isosorbide Mononitrate [Isosorbide Mononitrate ER] 30 mg PO DAILY 12/10/22 [History] Atorvastatin Calcium [Lipitor] 80 mg PO DAILY 06/11/23 [History] Cholecalciferol [Vitamin D3 (25 Mcg = 1000 Iu)] 50 mcg PO DAILY 06/11/23 [History] guaiFENesin [Mucinex] 600 mg PO Q12HR 5 Days #10 tab 02/03/24 [Rx] predniSONE [Deltasone] 20 mg PO DAILY 5 Days #5 tab 06/15/23 [Rx] Follow up Appointment(s)/Referral(s): [facility] [NON-STAFF] - As Needed (walker) [facility], [NON-STAFF] - As Needed Ashlyn Toro MD [Primary Care Provider] - 1-2 days Jass Nelson MD [STAFF PHYSICIAN] - 1 Week Discharge Disposition: HOME WITH HOME HEALTH SERVICES
[2023-06-15 15:31] VITALS: BP 105/55; PULSE 90; RESP 18; TEMP 97.4
[2023-06-15] MEDS ORDERED: SYMBICORT 160-4.5 MCG INHALER INHALATION SCH (20:00)
== END 2023-06-15 16:21 | disposition home health service (06) | DRG 189 ==
LOC: EC 04:35 → 2SICU 06:26 → 4SSUR 06-12 16:40
PROVIDERS: ADMIT Hospitalist; ATTEND Hospitalist
PROC: 5A09457 Assistance with Respiratory Ventilation, 24-96 Consecutive Hours, Continuous Positive Airway Pressure (ICD-10-PCS; principal; 2023-06-11)
DX: J96.21 Acute and chronic respiratory failure with hypoxia (principal); J44.1 Chronic obstructive pulmonary disease with (acute) exacerbation; J96.22 Acute and chronic respiratory failure with hypercapnia; I10 Essential (primary) hypertension; F32.A Depression, unspecified; I48.0 Paroxysmal atrial fibrillation; J20.5 Acute bronchitis due to respiratory syncytial virus; E78.5 Hyperlipidemia, unspecified; I25.10 Atherosclerotic heart disease of native coronary artery without angina pectoris; G47.33 Obstructive sleep apnea (adult) (pediatric); M19.90 Unspecified osteoarthritis, unspecified site; F41.9 Anxiety disorder, unspecified; K21.9 Gastro-esophageal reflux disease without esophagitis; F17.290 Nicotine dependence, other tobacco product, uncomplicated; Z79.51 Long term (current) use of inhaled steroids; Z79.899 Other long term (current) drug therapy; Z86.718 Personal history of other venous thrombosis and embolism; Z87.01 Personal history of pneumonia (recurrent); Z95.5 Presence of coronary angioplasty implant and graft; Z86.14 Personal history of Methicillin resistant Staphylococcus aureus infection
CPT/HCPCS: 36415; 36600; 71045; 80048; 80053; 82805; 83605; 83735; 83880; 84145; 84484; 85025; 85027; 85610; 85730; 86140; 87040; 87636; 93005; 94640; 94644; 94660; 94760; 96361; 96365; 96375; 99291

== ENCOUNTER 2023-10-05 11:06 | Inpatient (IN) | payer MEDICARE, OTHER ==
--- NOTE | 2023-10-05 11:52 | ED ---
SOB HPI - General Chief Complaint: Shortness of Breath Stated Complaint: AIED Time Seen by Provider: 10/05/23 11:31 Source: patient Mode of arrival: EMS Limitations: physical limitation - History of Present Illness Initial Comments: 63-year-old male with past medical history of COPD 4 L home O2, paroxysmal A- fib, coronary artery disease, sleep apnea, GI bleeding presents for shortness of breath. Patient states has been short of breath for the past 3 days and started having green productive sputum. He denies fevers. He did take a breathing treatment this morning before calling EMS. EMS gave him a second breathing treatment as well as 125 Solu-Medrol. He does not feel improvement. He denies chest pain. No lower extremity swelling. Does have history of DVT. He is not currently on any anticoagulation. He denies chest pain. Patient takes 10 mg of prednisone daily for his breathing. Follows with Dr. Quispe. No other alleviating, precipitating or modifying factors - Related Data Home Medications Medication Instructions Recorded Confirmed Albuterol Sulfate [Ventolin HFA] 2 puff INHALATION RT-Q6H PRN 11/13/14 10/05/23 Metoprolol Tartrate 25 mg PO BID 07/27/15 10/05/23 Gabapentin 600 mg PO TID PRN 03/21/16 10/05/23 Albuterol Nebulized [Ventolin 2.5 mg INHALATION RT-TID 12/15/21 10/05/23 Nebulized] Fluticasone/Umeclidin/Vilanter 1 puff INHALATION RT-DAILY 12/15/21 10/05/23 [Treleangel Ellipta 100-62.5-25] Pantoprazole Sodium 20 mg PO DAILY 12/15/21 10/05/23 Ibuprofen 800 mg PO Q8H PRN 12/10/22 10/05/23 Atorvastatin Calcium [Lipitor] 80 mg PO DAILY 06/11/23 10/05/23 Cholecalciferol [Vitamin D3 (25 50 mcg PO DAILY 06/11/23 10/05/23 Mcg = 1000 Iu)] ALPRAZolam [Xanax] 0.5 mg PO Q12H PRN 10/05/23 10/05/23 Aspirin EC [Ecotrin Low Dose] 81 mg PO DAILY 10/05/23 10/05/23 predniSONE 10 mg PO DAILY 10/05/23 10/05/23 Allergies Allergy/AdvReac Type Severity Reaction Status Date / Time No Known Allergies Allergy Verified 10/05/23 15:22 Review of Systems ROS Statement: Those systems with pertinent positive or pertinent negative responses have been documented in the HPI. ROS Other: All systems not noted in ROS Statement are negative. Past Medical History Past Medical History: Atrial Fibrillation, Coronary Artery Disease (CAD), COPD, Deep Vein Thrombosis (DVT), GERD/Reflux, GI Bleed, Hyperlipidemia, Hypertension, Osteoarthritis (OA), Pneumonia, Sleep Apnea/CPAP/BIPAP Additional Past Medical History / Comment(s): DVT- LEFT LEG, CPAP, pt uses 3 liters 02 when active and at night with cpap. pt has portable 02 History of Any Multi-Drug Resistant Organisms: MRSA Date of last positivie culture/infection: 03/01/22 MRSA MDRO Source:: Right Axilla Past Surgical History: Heart Catheterization With Stent, Orthopedic Surgery Additional Past Surgical History / Comment(s): ABD AORTOGRAM. Other SX: (construction accident balcony fell from building)HAD CRUSHING INJURY TO ANKLES HAD FUSION DONE JOSE ALBERTO, LT FOOT TOE PARTIAL AMP. CHEST TUBE FOR PNEUMOTHORAX. SURGERY TO REMOVE BLOOD CLOT FROM LEG. Bronchial washings/lavage, EGD. femoral bypass,heart stents x3 Past Anesthesia/Blood Transfusion Reactions: No Reported Reaction Additional Past Anesthesia/Blood Transfusion Reaction / Comment(s): Pt states he has never received blood. Date of Last Stent Placement:: 04/2021 Past Psychological History: No Psychological Hx Reported Smoking Status: Current every day smoker Past Alcohol Use History: None Reported Past Drug Use History: Marijuana - Past Family History Father Family Medical History: Coronary Artery Disease (CAD), Diabetes Mellitus, Myocardial Infarction ([place]), Pulmonary Embolus Additional Family Medical History / Comment(s): PE Mother Family Medical History: CVA/TIA General Exam Limitations: physical limitation General appearance: alert, in no apparent distress, anxious Head exam: Present: atraumatic, normocephalic, normal inspection Eye exam: Present: normal appearance, PERRL, EOMI. Absent: scleral icterus, conjunctival injection, periorbital swelling ENT exam: Present: normal exam, mucous membranes moist Neck exam: Present: normal inspection. Absent: tenderness, meningismus, lymphadenopathy Respiratory exam: Present: wheezes, accessory muscle use, decreased breath sounds Cardiovascular Exam: Present: regular rate, normal rhythm, normal heart sounds. Absent: systolic murmur, diastolic murmur, rubs, gallop, clicks Course Vital Signs 10/05/23 10/05/23 10/05/23 11:13 13:59 14:07 Temperature 98.3 F Pulse Rate 51 L 67 64 Respiratory 28 H Rate Blood Pressure 146/107 O2 Sat by Pulse 99 Oximetry 10/05/23 10/05/23 14:39 16:05 Temperature Pulse Rate 81 77 Respiratory 20 20 Rate Blood Pressure 146/82 105/80 O2 Sat by Pulse 97 98 Oximetry Medical Decision Making - Medical Decision Making Was pt. sent in by a medical professional or institution (, PA, MANAGER HOUSEKEEPING, urgent care, hospital, or long-term...) When possible be specific @ -No Did you speak to anyone other than the patient for history (EMS, parent, family, police, friend...)? What history was obtained from this source @ -Spoke with EMS for history Did you review nursing and triage notes (agree or disagree)? Why? @ -I reviewed and agree with nursing and triage notes Were old charts reviewed (outside hosp., previous admission, EMS record, old EKG, old radiological studies, urgent care reports/EKG's, long-term records)? Report findings @ -No old charts were reviewed Differential Diagnosis (chest pain, altered mental status, abdominal pain women, abdominal pain men, vaginal bleeding, weakness, fever, dyspnea, syncope, headache, dizziness, GI bleed, back pain, seizure, CVA, palpatations, mental health, musculoskeletal)? @ -Differential Dyspnea: Coronary syndrome, arrhythmia, tamponade, asthma, COPD, pulmonary embolism, pneumonia, pneumothorax, pulmonary effusion, anaphylaxis, diabetic ketoacidosis, flailed chest, pulmonary contusion, diaphragmatic rupture, anemia, neuromuscular, this is not meant to be an all-inclusive list. EKG interpreted by me (3pts min.). @ -yes and demonstrates sinus rhythm with a rate of 72. [place] interval 171. QRS 92. QTc of 401. No acute ST segment elevations or depressions X-rays interpreted by me (1pt min.). @ -Yes and demonstrates developing pneumonia CT interpreted by me (1pt min.). @ -None done U/S interpreted by me (1pt. min.). @ -None done What testing was considered but not performed or refused? (CT, X-rays, U/S, vera baxter)? Why? @ -None What meds were considered but not given or refused? Why? @ -None Did you discuss the management of the patient with other professionals (professionals i.e. , PA, MANAGER HOUSEKEEPING, lab, RT, psych nurse, social work professor, process controls technician, teacher, human resource officer, disability case manager)? Give summary @Spoke with Dr. Albert for admission Was smoking cessation discussed for >3mins.? @ -Yes, patient does not appear to be receptive to quitting smoking.We did discuss the cost of the risks associated with it to include Was critical care preformed (if so, how long)? @ -No Were there social determinants of health that impacted care today? How? (Homelessness, low income, unemployed, alcoholism, drug addiction, transportation, low edu. Level, literacy, decrease access to med. care, fci, rehab)? @ -No Was there de-escalation of care discussed even if they declined (Discuss DNR or withdrawal of care, Hospice)? DNR status @ -No What co-morbidities impacted this encounter? (DM, HTN, Smoking, COPD, CAD, Ca ncer, CVA, ARF, Chemo, Hep., AIDS, mental health diagnosis, sleep apnea, morbid obesity)? @ -COPD Was patient admitted / discharged? Hospital course, mention meds given and route, prescriptions, significant lab abnormalities, going to OR and other pertinent info. @ -Upon arrival patient seen and evaluated in room 18. Thorough history and physical exam was performed. Patient remains on his 4 L home O2. He is given a breathing treatment in the emergency department. Laboratory studies are con ducted. X-ray was performed. Chest x-ray does demonstrate possible developing pneumonia. Because of this patient will be started on antibiotics. Recommended admission for breathing treatments and antibiotics. Patient was agreeable admitted in stable condition Undiagnosed new problem with uncertain prognosis? @ -No Drug Therapy requiring intensive monitoring for toxicity (Heparin, Nitro, Insu eamon, Cardizem)? @ -No Were any procedures done? @ -No Diagnosis/symptom? @ -Acute respiratory insufficiency on chronic respiratory failure, acute pneumonia, acute COPD exacerbation Acute, or Chronic, or Acute on Chronic? @ -Acute Uncomplicated (without systemic symptoms) or Complicated (systemic symptoms)? @ -Complicated Side effects of treatment? @ -No Exacerbation, Progression, or Severe Exacerbation? @ -Yes Poses a threat to life or bodily function? How? (Chest pain, [place], [place], pneumonia, PE, COPD, DKA, ARF, appy, cholecystitis, CVA, Diverticulitis, Homicidal, Suicidal, threat to staff... and all critical care pts) @ -Yes as patient arrives with increased work of breathing - Lab Data Result diagrams: 10/06/23 05:58 10/06/23 05:58 Lab Results 10/05/23 10/05/23 10/05/23 Range/Units 12:57 12:57 12:57 WBC 11.9 H (3.8-10.6) k/uL RBC 4.93 (4.30-5.90) m/uL Hgb 14.4 (13.0-17.5) gm/dL Hct 46.1 (39.0-53.0) % MCV 93.5 (80.0-100.0) fL MCH 29.1 (25.0-35.0) pg MCHC 31.1 (31.0-37.0) g/dL RDW 13.5 (11.5-15.5) % Plt Count 309 (150-450) k/uL MPV 8.1 Neutrophils % 93 % Lymphocytes % 3 % Monocytes % 3 % Eosinophils % 0 % Basophils % 0 % Neutrophils # 11.0 H (1.3-7.7) k/uL Lymphocytes # 0.4 L (1.0-4.8) k/uL Monocytes # 0.4 (0-1.0) k/uL Eosinophils # 0.0 (0-0.7) k/uL Basophils # 0.0 (0-0.2) k/uL PT 10.8 (10.0-12.5) sec INR 1.0 (<1.2) APTT 26.5 (22.0-30.0) sec Sodium 125 L (137-145) mmol/L Potassium 3.6 (3.5-5.1) mmol/L Chloride 82 L (98-107) mmol/L Carbon Dioxide 37 H (22-30) mmol/L Anion Gap 6 mmol/L BUN 8 L (9-20) mg/dL Creatinine 0.47 L (0.66-1.25) mg/dL Est GFR (CKD-EPI)AfAm >90 (>60 ml/min/1.73 sqM) Est GFR (CKD-EPI)NonAf >90 (>60 ml/min/1.73 sqM) Glucose 132 H (74-99) mg/dL Lactic Ac Sepsis Rflx Plasma Lactic Acid Ned (0.7-2.0) mmol/L Calcium 9.2 (8.4-10.2) mg/dL Total Bilirubin 0.7 (0.2-1.3) mg/dL AST 31 (17-59) U/L ALT 22 (4-49) U/L Alkaline Phosphatase 83 (38-126) U/L Troponin I (0.000-0.034) ng/mL NT-Pro-B Natriuret Pep 157 pg/mL Total Protein 6.6 (6.3-8.2) g/dL Albumin 4.1 (3.5-5.0) g/dL Influenza Type A (PCR) (Not Detectd) Influenza Type B (PCR) (Not Detectd) RSV (PCR) (Not Detectd) SARS-CoV-2 (PCR) (Not Detectd) 10/05/23 10/05/23 10/05/23 Range/Units 12:57 12:57 13:05 WBC (3.8-10.6) k/uL RBC (4.30-5.90) m/uL Hgb (13.0-17.5) gm/dL Hct (39.0-53.0) % MCV (80.0-100.0) fL MCH (25.0-35.0) pg MCHC (31.0-37.0) g/dL RDW (11.5-15.5) % Plt Count (150-450) k/uL MPV Neutrophils % % Lymphocytes % % Monocytes % % Eosinophils % % Basophils % % Neutrophils # (1.3-7.7) k/uL Lymphocytes # (1.0-4.8) k/uL Monocytes # (0-1.0) k/uL Eosinophils # (0-0.7) k/uL Basophils # (0-0.2) k/uL PT (10.0-12.5) sec INR (<1.2) APTT (22.0-30.0) sec Sodium (137-145) mmol/L Potassium (3.5-5.1) mmol/L Chloride (98-107) mmol/L Carbon Dioxide (22-30) mmol/L Anion Gap mmol/L BUN (9-20) mg/dL Creatinine (0.66-1.25) mg/dL Est GFR (CKD-EPI)AfAm (>60 ml/min/1.73 sqM) Est GFR (CKD-EPI)NonAf (>60 ml/min/1.73 sqM) Glucose (74-99) mg/dL Lactic Ac Sepsis Rflx Plasma Lactic Acid Ned 2.1 H* (0.7-2.0) mmol/L Calcium (8.4-10.2) mg/dL Total Bilirubin (0.2-1.3) mg/dL AST (17-59) U/L ALT (4-49) U/L Alkaline Phosphatase (38-126) U/L Troponin I <0.012 (0.000-0.034) ng/mL NT-Pro-B Natriuret Pep pg/mL Total Protein (6.3-8.2) g/dL Albumin (3.5-5.0) g/dL Influenza Type A (PCR) Not Detected (Not Detectd) Influenza Type B (PCR) Not Detected (Not Detectd) RSV (PCR) Not Detected (Not Detectd) SARS-CoV-2 (PCR) Not Detected (Not Detectd) 10/05/23 Range/Units 13:27 WBC (3.8-10.6) k/uL RBC (4.30-5.90) m/uL Hgb (13.0-17.5) gm/dL Hct (39.0-53.0) % MCV (80.0-100.0) fL MCH (25.0-35.0) pg MCHC (31.0-37.0) g/dL RDW (11.5-15.5) % Plt Count (150-450) k/uL MPV Neutrophils % % Lymphocytes % % Monocytes % % Eosinophils % % Basophils % % Neutrophils # (1.3-7.7) k/uL Lymphocytes # (1.0-4.8) k/uL Monocytes # (0-1.0) k/uL Eosinophils # (0-0.7) k/uL Basophils # (0-0.2) k/uL PT (10.0-12.5) sec INR (<1.2) APTT (22.0-30.0) sec Sodium (137-145) mmol/L Potassium (3.5-5.1) mmol/L Chloride (98-107) mmol/L Carbon Dioxide (22-30) mmol/L Anion Gap mmol/L BUN (9-20) mg/dL Creatinine (0.66-1.25) mg/dL Est GFR (CKD-EPI)AfAm (>60 ml/min/1.73 sqM) Est GFR (CKD-EPI)NonAf (>60 ml/min/1.73 sqM) Glucose (74-99) mg/dL Lactic Ac Sepsis Rflx Y Plasma Lactic Acid Ned (0.7-2.0) mmol/L Calcium (8.4-10.2) mg/dL Total Bilirubin (0.2-1.3) mg/dL AST (17-59) U/L ALT (4-49) U/L Alkaline Phosphatase (38-126) U/L Troponin I (0.000-0.034) ng/mL NT-Pro-B Natriuret Pep pg/mL Total Protein (6.3-8.2) g/dL Albumin (3.5-5.0) g/dL Influenza Type A (PCR) (Not Detectd) Influenza Type B (PCR) (Not Detectd) RSV (PCR) (Not Detectd) SARS-CoV-2 (PCR) (Not Detectd) Disposition Clinical Impression: COPD exacerbation, Hyponatremia, CAP (community acquired pneumonia) Disposition: ADMITTED IP TO THIS [facility] Condition: Serious Is patient prescribed a controlled substance at d/c from ED?: No Time of Disposition: 15:13 Decision to Admit Reason: Admit from EC Decision Date: 10/05/23 Decision Time: 15:13
[2023-10-05 13:18] LABS: Basophils % (A) 0 %; Eosinophils % (A) 0 %; HCT 46.1 % (39.0-53.0); HGB 14.4 gm/dL (13.0-17.5); Lymphocytes # (A) 0.4 k/uL (1.0-4.8); Lymphocytes % (A) 3 %; MCH 29.1 pg (25.0-35.0); MCHC 31.1 g/dL (31.0-37.0); MCV 93.5 fL (80.0-100.0); Mean Platelet Volume 8.1; Monocytes # (A) 0.4 k/uL (0-1.0); Monocytes % (A) 3 %; Neutrophils % (A) 93 %; Platelet Count 309 k/uL (150-450); RBC 4.93 m/uL (4.30-5.90); RDW 13.5 % (11.5-15.5); WBC 11.9 k/uL (3.8-10.6)
[2023-10-05] MEDS: MORPHINE SULFATE 4 MG/ML SYRINGE IVP STA (13:24)
[2023-10-05] MEDS: MAGNESIUM SULFATE-D5W PMX 1 GM in DEXTROSE/WATER 1 100ML.BAG IVPB ONE (13:27)
--- NOTE | 2023-10-05 13:27 | XR ---
EXAMINATION TYPE: XR chest 2V DATE OF EXAM: 10/05/2023 COMPARISON: 06/12/2023 INDICATION: Difficulty breathing TECHNIQUE: Frontal and lateral views of the chest are obtained. FINDINGS: There is hyperinflation and flattened diaphragms compatible with COPD. In the lateral proj ection there is some streak opacity in the posterior lung field could be some atelectasis or scarring . Pneumonia is considered less likely. The heart size is normal. The pulmonary vasculature is normal. The lungs are otherwise clear. IMPRESSION: 1. Posterior upper lung field atelectasis or pneumonia. 2. COPD
[2023-10-05 13:33] LABS: ALT 22 U/L (4-49); AST 31 U/L (17-59); African American GFR (CKD) >90 (>60 ml/min/1.73 sqM); Albumin 4.1 g/dL (3.5-5.0); Alkaline Phosphatase 83 U/L (38-126); Anion Gap 6 mmol/L; Blood Urea Nitrogen 8 mg/dL (9-20); Calcium 9.2 mg/dL (8.4-10.2); Carbon Dioxide 37 mmol/L (22-30); Chloride 82 mmol/L (98-107); Glucose 132 mg/dL (74-99); Non-African American GFR(CKD) >90 (>60 ml/min/1.73 sqM); Potassium 3.6 mmol/L (3.5-5.1); Sodium 125 mmol/L (137-145); Total Bilirubin 0.7 mg/dL (0.2-1.3); Total Protein 6.6 g/dL (6.3-8.2)
[2023-10-05 13:41] LABS: NT-Pro-B-Type Natriuretic Pept 157 pg/mL; Partial Thromboplastin Time 26.5 sec (22.0-30.0); Prothrombin Time 10.8 sec (10.0-12.5)
[2023-10-05] MEDS: IPRATROPIUM-ALBUTEROL 3 ML NEB INHALATION STA (13:59)
[2023-10-05] MEDS ORDERED: PNEUMONIA PROTOCOL UTILIZED 1 EACH MISC PO PRN (14:46)
[2023-10-05] MEDS: AZITHROMYCIN 500 MG in SODIUM CHLORIDE 0.9% 250 ML IVPB STA (17:14)
--- NOTE | 2023-10-05 17:48 | P.HPIM ---
History of Present Illness H&P Date: 10/05/23 Chief Complaint: Shortness of breath 63-year-old male with past medical history of COPD 4 L home O2, paroxysmal A- fib, coronary artery disease, sleep apnea, GI bleeding presents for shortness of breath. Patient states has been short of breath for the past 3 days and started having green productive sputum. He denies fevers. He did take a breathing treatment this morning before calling EMS. EMS gave him a second breathing treatment as well as 125 Solu-Medrol. He does not feel improvement. He denies chest pain. No lower extremity swelling. Does have history of DVT. He is not currently on any anticoagulation. He denies chest pain. Patient takes 10 mg of prednisone daily for his breathing. Follows with Dr. Quispe. No other alleviating, precipitating or modifying factors Blood work completed in ED reveals a WBC of 11.9, hemoglobin of 14.4 and platelet count of 309, sodium 125, potassium 3.6, BUNs/creatinine of 8/0.47, lactic acid of 2.1 with repeat level of 1.2, liver enzymes are within normal limits, influenza a and B are negative, RSV PCR is negative and COVID-19 PCR is negative EKG demonstrates sinus rhythm with a rate of 72. RI interval 171. QRS 92. QTc of 401. No acute ST segment elevations or depressions Chest x-ray reveals posterior upper lung pneumonia Review of Systems REVIEW OF SYSTEMS: CONSTITUTIONAL: No fever, no malaise, no fatigue. HEENT: No recent visual problems or hearing problems. Denied any sore throat. CARDIOVASCULAR: No chest pain, orthopnea, PND, no palpitations, no syncope. PULMONARY: No shortness of breath, no cough, no hemoptysis. GASTROINTESTINAL: No diarrhea, no nausea, no vomiting, no abdominal pain. NEUROLOGICAL: No headaches, no weakness, no numbness. HEMATOLOGICAL: Denies any bleeding or petechiae. GENITOURINARY: Denies any burning micturition, frequency, or urgency. MUSCULOSKELETAL/RHEUMATOLOGICAL: Denies any joint pain, swelling, or any muscle pain. ENDOCRINE: Denies any polyuria or polydipsia. The rest of the 14-point review of systems is negative. Past Medical History Past Medical History: Atrial Fibrillation, Coronary Artery Disease (CAD), COPD, Deep Vein Thrombosis (DVT), GERD/Reflux, GI Bleed, Hyperlipidemia, Hypertension, Osteoarthritis ([place]), Pneumonia, Sleep Apnea/CPAP/BIPAP Additional Past Medical History / Comment(s): DVT- LEFT LEG, CPAP, pt uses 3 liters 02 when active and at night with cpap. pt has portable 02 History of Any Multi-Drug Resistant Organisms: MRSA Date of last positivie culture/infection: 03/01/22 MRSA MDRO Source:: Right Axilla Past Surgical History: Heart Catheterization With Stent, Orthopedic Surgery Additional Past Surgical History / Comment(s): ABD AORTOGRAM. Other SX: (construction accident balcony fell from building)HAD CRUSHING INJURY TO ANKLES HAD FUSION DONE JOSE ALBERTO, LT FOOT TOE PARTIAL AMP. CHEST TUBE FOR PNEUMOTHORAX. SURGERY TO REMOVE BLOOD CLOT FROM LEG. Bronchial washings/lavage, EGD. femoral bypass,heart stents x3 Past Anesthesia/Blood Transfusion Reactions: No Reported Reaction Additional Past Anesthesia/Blood Transfusion Reaction / Comment(s): Pt states he has never received blood. Date of Last Stent Placement:: 04/2021 Past Psychological History: No Psychological Hx Reported Smoking Status: Current every day smoker Past Alcohol Use History: None Reported Past Drug Use History: Marijuana - Past Family History Father Family Medical History: Coronary Artery Disease (CAD), Diabetes Mellitus, Myocardial Infarction ([place]), Pulmonary Embolus Additional Family Medical History / Comment(s): PE Mother Family Medical History: CVA/TIA Medications and Allergies Home Medications Medication Instructions Recorded Confirmed Type Albuterol Sulfate [Ventolin HFA] 2 puff INHALATION RT-Q6H PRN 11/13/14 10/05/23 History Metoprolol Tartrate 25 mg PO BID 07/27/15 10/05/23 History Gabapentin 600 mg PO TID PRN 03/21/16 10/05/23 History Albuterol Nebulized [Ventolin 2.5 mg INHALATION RT-TID 12/15/21 10/05/23 History Nebulized] Fluticasone/Umeclidin/Vilanter 1 puff INHALATION RT-DAILY 12/15/21 10/05/23 History [Trelegy Ellipta 100-62.5-25] Pantoprazole Sodium 20 mg PO DAILY 12/15/21 10/05/23 History Ibuprofen 800 mg PO Q8H PRN 12/10/22 10/05/23 History Atorvastatin Calcium [Lipitor] 80 mg PO DAILY 06/11/23 10/05/23 History Cholecalciferol [Vitamin D3 (25 50 mcg PO DAILY 06/11/23 10/05/23 History Mcg = 1000 Iu)] ALPRAZolam [Xanax] 0.5 mg PO Q12H PRN 10/05/23 10/05/23 History Aspirin EC [Ecotrin Low Dose] 81 mg PO DAILY 10/05/23 10/05/23 History predniSONE 10 mg PO DAILY 10/05/23 10/05/23 History Allergies Allergy/AdvReac Type Severity Reaction Status Date / Time No Known Allergies Allergy Verified 10/05/23 15:22 Physical Exam Vitals: Vital Signs Temp Pulse Pulse Resp BP BP Pulse Ox 10/05/23 16:37 97.9 F 70 18 109/77 97 10/05/23 16:05 77 20 105/80 98 10/05/23 14:39 81 20 146/82 97 10/05/23 14:07 64 10/05/23 13:59 67 10/05/23 11:13 98.3 F 51 L 28 H 146/107 99 Intake and Output 10/05/23 10/05/23 10/05/23 06:59 14:59 22:59 Other: Weight 63.503 kg 63.503 kg General appearance: alert, in no apparent distress, anxious Head exam: Present: atraumatic, normocephalic, normal inspection Eye exam: Present: normal appearance, PERRL, EOMI. Absent: scleral icterus, conjunctival injection, periorbital swelling ENT exam: Present: normal exam, mucous membranes moist Neck exam: Present: normal inspection. Absent: tenderness, meningismus, lymphadenopathy Respiratory exam: Present: wheezes, accessory muscle use, decreased breath sounds Cardiovascular Exam: Present: regular rate, normal rhythm, normal heart sounds. Absent: systolic murmur, diastolic murmur, rubs, gallop, clicks Results CBC & Chem 7: 10/05/23 12:57 10/05/23 12:57 Labs: Abnormal Lab Results - Last 24 Hours (Table) 10/05/23 10/05/23 10/05/23 Range/Units 12:57 12:57 12:57 WBC 11.9 H (3.8-10.6) k/uL Neutrophils # 11.0 H (1.3-7.7) k/uL Lymphocytes # 0.4 L (1.0-4.8) k/uL Sodium 125 L (137-145) mmol/L Chloride 82 L (98-107) mmol/L Carbon Dioxide 37 H (22-30) mmol/L BUN 8 L (9-20) mg/dL Creatinine 0.47 L (0.66-1.25) mg/dL Glucose 132 H (74-99) mg/dL Plasma Lactic Acid Ned 2.1 H* (0.7-2.0) mmol/L Thrombosis Risk Factor Assmnt - Choose All That Apply Any of the Below Risk Factors Present?: Yes Other Risk Factors: Yes Each Risk Factor Represents 2 Points: Age 61-74 years Each Risk Factor Represents 3 Points: Family history of DVT/PE Other congenital or acquired thrombophilia - If yes, enter type in comment: Yes Thrombosis Risk Factor Assessment Total Risk Factor Score: 5 Thrombosis Risk Factor Assessment Level: High Risk Assessment and Plan Assessment: 1. Acute on chronic hypoxic respiratory failure -Patient is currently on O2 at 6 L per nasal cannula; we will continue to titrate or wean as able -Further recommendations once patient is evaluated by pulmonary service 2. Community-acquired pneumonia -Patient has been placed on Rocephin 2 g IV daily along with azithromycin 500 mg p.o. daily -We will monitor CBC, CRP and procalcitonin Pulmonary consult in place 3. Acute exacerbation COPD; Solu-Medrol 125 mg IV x 1 followed by 40 mg IV every 8 hours; DuoNeb nebulizer treatments 4 times daily and as needed -Patient has been placed on antibiotics in form of Rocephin and azithromycin -Patient takes prednisone 10 mg daily at home which has been placed on hold 1 while on IV Solu-Medrol 4. Hyponatremia; we will order serum and urine osmolality along with urine sodium levels -Patient is placed on IV fluids in form of normal saline at rate of 75 cc an hour; will initiate a fluid restriction if no improvement in sodium levels 5. Hypertension; metoprolol 25 mg twice daily 6. Hyperlipidemia; Lipitor 80 mg daily 7. History of coronary artery disease; currently stable on aspirin, statins and beta-blockers DVT prophylaxis; SCDs/subcu heparin CODE STATUS; full code
[2023-10-05] MEDS: METOPROLOL TARTRATE 25 MG TAB PO SCH (20:16)
[2023-10-05] MEDS: GABAPENTIN 300 MG CAP PO PRN (20:20)
[2023-10-05] MEDS: IBUPROFEN 800 MG TAB PO PRN (20:20)
[2023-10-05] MEDS: SYMBICORT 80-4.5 MCG INHALER INHALATION SCH (20:32)
[2023-10-06] MEDS: methylPREDNISolone SOD SUCCI 40 MG/ML 1 ML VIAL IV SCH (00:02)
[2023-10-06] MEDS: IPRATROPIUM-ALBUTEROL 3 ML NEB INHALATION PRN (06:17)
[2023-10-06] MEDS: PANTOPRAZOLE SODIUM 40 MG GRANULE PKT PO SCH (06:36)
[2023-10-06] MEDS: IPRATROPIUM 0.5 MG/2.5 ML NEBU INHALATION SCH (07:36)
[2023-10-06] MEDS: CHOLECALCIFEROL 25 MCG (1000 IU) TABLET PO SCH (07:43)
[2023-10-06] MEDS: ASPIRIN 81 MG PO SCH (07:43)
[2023-10-06] MEDS: ATORVASTATIN 80 MG TAB PO SCH (07:43)
[2023-10-06] MEDS: AZITHROMYCIN 500 MG TAB PO SCH (09:17)
[2023-10-06 09:28] LABS: Basophils # (A) 0.02 X 10*3/uL (0.00-0.10); Basophils % (A) 0.2 %; Eosinophils # (A) 0.01 X 10*3/uL (0.04-0.35); Eosinophils % (A) 0.1 %; HCT 42.3 % (39.6-50.0); Lymphocytes # (A) 0.64 X 10*3/uL (0.90-5.00); Lymphocytes % (A) 6.7 %; MCH 30.2 pg (27.0-32.0); MCHC 33.1 g/dL (32.0-37.0); MCV 91.4 FL (80.0-97.0); Mean Platelet Volume 10.3 FL (9.5-12.2); Monocytes # (A) 0.65 X 10*3/uL (0.20-1.00); Monocytes % (A) 6.8 %; NRBC Per 100 WBC 0 X 10*3/uL (0.00-0.01); Neutrophils # (A) 8.25 X 10*3/uL (1.80-7.70); Neutrophils % (A) 85.9 %; Platelet Count 279 X 10*3/uL (140-440); RBC 4.63 X 10*6/uL (4.40-5.60); RDW 13.5 % (11.5-14.5)
[2023-10-06] MEDS: ALPRAZolam 0.5 MG TAB PO PRN (10:28)
--- NOTE | 2023-10-06 13:48 | XR ---
EXAMINATION TYPE: XR chest 1V portable DATE OF EXAM: 10/06/2023 COMPARISON: 10/05/2023 INDICATION: Pneumonia TECHNIQUE: Frontal and lateral views of the chest are obtained. FINDINGS: The heart size is normal. The pulmonary vasculature is normal. There is hyperinflation flattening of diaphragms compatible COPD. No significant interval change is e vident. Infiltrate is identified on the lateral projection. Current study is frontal projection and direct co mparison cannot be performed.. IMPRESSION: 1. Recommend 2 view chest to evaluate posterior infiltrate. 2. COPD
[2023-10-06 14:37] LABS: BUN/Creat Ratio 18.83 Ratio (12.00-20.00); Blood Urea Nitrogen 11.3 mg/dL (9.0-27.0); Calcium 10.4 mg/dL (8.7-10.3); Carbon Dioxide 26.5 mmol/L (21.6-31.8); Chloride 85 mmol/L (96-109); Glucose 111 mg/dL (70-110); Potassium 4.2 mmol/L (3.5-5.5); Sodium 132 mmol/L (135-145)
--- NOTE | 2023-10-06 16:43 | P.PN ---
Subjective Progress Note Date: 10/06/23 63-year-old male with past medical history of COPD 4 L home O2, paroxysmal A- fib, coronary artery disease, sleep apnea, GI bleeding presents for shortness of breath. Patient states has been short of breath for the past 3 days and started having green productive sputum. He denies fevers. He did take a breathing treatment this morning before calling EMS. EMS gave him a second breathing treatment as well as 125 Solu-Medrol. He does not feel improvement. He denies chest pain. No lower extremity swelling. Does have history of DVT. He is not currently on any anticoagulation. He denies chest pain. Patient takes 10 mg of prednisone daily for his breathing. Follows with Dr. Quispe. No other alleviating, precipitating or modifying factors Blood work completed in ED reveals a WBC of 11.9, hemoglobin of 14.4 and platelet count of 309, sodium 125, potassium 3.6, BUNs/creatinine of 8/0.47, la ctic acid of 2.1 with repeat level of 1.2, liver enzymes are within normal limits, influenza a and B are negative, RSV PCR is negative and COVID-19 PCR is negative EKG demonstrates sinus rhythm with a rate of 72. AR interval 171. QRS 92. QTc of 401. No acute ST segment elevations or depressions Chest x-ray reveals posterior upper lung pneumonia Objective - Vital Signs Vital signs: Vital Signs Temp 98.1 F 10/06/23 07:19 Pulse 76 10/06/23 11:23 Resp 18 10/06/23 07:19 BP 137/74 10/06/23 07:19 Pulse Ox 97 10/06/23 07:19 FiO2 Intake & Output 10/05/23 10/06/23 10/06/23 18:59 06:59 18:59 Output Total 500 Balance -500 Weight 63.503 kg Output: Urine 500 - Exam General appearance: alert, in no apparent distress, anxious Head exam: Present: atraumatic, normocephalic, normal inspection Eye exam: Present: normal appearance, PERRL, EOMI. Absent: scleral icterus, conjunctival injection, periorbital swelling ENT exam: Present: normal exam, mucous membranes moist Neck exam: Present: normal inspection. Absent: tenderness, meningismus, lymphadenopathy Respiratory exam: Present: wheezes, accessory muscle use, decreased breath sounds Cardiovascular Exam: Present: regular rate, normal rhythm, normal heart sounds. Absent: systolic murmur, diastolic murmur, rubs, gallop, clicks - Labs CBC & Chem 7: 10/06/23 05:58 10/06/23 05:58 Labs: Abnormal Lab Results - Last 24 Hours (Table) 10/05/23 10/05/23 10/05/23 Range/Units 12:57 12:57 12:57 WBC 11.9 H (3.8-10.6) k/uL Neutrophils # 11.0 H (1.3-7.7) k/uL Lymphocytes # 0.4 L (1.0-4.8) k/uL Eosinophils # (0.04-0.35) X 10*3/uL Sodium 125 L (137-145) mmol/L Chloride 82 L (98-107) mmol/L Carbon Dioxide 37 H (22-30) mmol/L BUN 8 L (9-20) mg/dL Creatinine 0.47 L (0.66-1.25) mg/dL Glucose 132 H (74-99) mg/dL Plasma Lactic Acid Ned 2.1 H* (0.7-2.0) mmol/L 10/06/23 Range/Units 05:58 WBC (3.8-10.6) k/uL Neutrophils # 8.25 H (1.3-7.7) k/uL Lymphocytes # 0.64 L (1.0-4.8) k/uL Eosinophils # 0.01 L (0.04-0.35) X 10*3/uL Sodium (137-145) mmol/L Chloride (98-107) mmol/L Carbon Dioxide (22-30) mmol/L BUN (9-20) mg/dL Creatinine (0.66-1.25) mg/dL Glucose (74-99) mg/dL Plasma Lactic Acid Ned (0.7-2.0) mmol/L Assessment and Plan Assessment: 1. Acute on chronic hypoxic respiratory failure -Patient is currently on O2 at 6 L per nasal cannula; we will continue to titrate or wean as able -Further recommendations once patient is evaluated by pulmonary service 2. Community-acquired pneumonia -Patient has been placed on Rocephin 2 g IV daily along with azithromycin 500 mg p.o. daily -We will monitor CBC, CRP and procalcitonin Pulmonary consult in place 3. Acute exacerbation COPD; Solu-Medrol 125 mg IV x 1 followed by 40 mg IV every 8 hours; DuoNeb nebulizer treatments 4 times daily and as needed -Patient has been placed on antibiotics in form of Rocephin and azithromycin -Patient takes prednisone 10 mg daily at home which has been placed on hold 1 while on IV Solu-Medrol 4. Hyponatremia; we will order serum and urine osmolality along with urine sodium levels -Patient is placed on IV fluids in form of normal saline at rate of 75 cc an hour; will initiate a fluid restriction if no improvement in sodium levels 5. Hypertension; metoprolol 25 mg twice daily 6. Hyperlipidemia; Lipitor 80 mg daily 7. History of coronary artery disease; currently stable on aspirin, statins and beta-blockers DVT prophylaxis; SCDs/subcu heparin CODE STATUS; full code
[2023-10-07] MEDS: ONDANSETRON 4 MG/2 ML VIAL IVP PRN (08:12)
[2023-10-07] MEDS: guaiFENesin-DM 600/30MG 1 EACH TAB.ER.12H PO SCH (13:45)
[2023-10-07] MEDS: HYDROcodone/APAP 5-325MG 1 EACH TAB PO PRN (13:45)
--- NOTE | 2023-10-07 15:44 | P.CNPUL ---
History of Present Illness Consult date: 10/07/23 Reason for consult: dyspnea History of present illness: This is a 63-year-old male patient presented to the hospital because of increased dyspnea, cough, chest wall pain, chest congestion without the ability of producing any sputum, increased bronchospasm wheezing. He has become extremely debilitated over the past few months to the point where the patient was unable to perform activities of day-to-day life without having any significant shortness of breath. He is known to have severe COPD with chronic hypoxic respiratory failure and a baseline FEV1 of 27% of predicted. He is oxygen dependent at 4 L of O2 on outpatient basis. He is also known to have CAD with previous coronary intervention and stenting that was done involving the LAD back in 2020. He has chronic A-fib hypertension hyperlipidemia and obstructive sleep apnea. He has also previous history of pneumothoraces. The chest x-ray that was done at time of admission shows no evidence of any pulm infiltrates. There is hyperinflation and evidence of COPD. White cell count of 9.6 with a hemoglobin 14 and platelet count 279. Sodium is at 132, potassium is at 4.2, BUN is 11 with a creatinine of 0.6. Calcium level is at 10.4. Lactic acid level is at 1.2. Viral screen has been negative and originally admits she is also negative. Currently on IV Rocephin as an empiric antibiotic coverage. He is also on DuoNeb updrafts. He has been maintained on Trelegy Ellipta and prednisone 10 mg as a maintenance on outpatient basis. He has been smoking on 5 cigarettes on a daily basis. Review of Systems Constitutional: Patient denies any fever or chills . No generalized weakness or weight loss. Abdomen: Patient denied nausea vomiting and diarrhea and abdominal pain. Cardiovascular: Patient denies any chest pain or short of breath no p alpitations. Respiratory: Patient does have cough with sputum production a lowish. Shortness of breath. Neurologic: Patient denied any numbness or tingling headache. Musculoskeletal: Patient denies any complaints of joint swelling or deformity. Skin: Negative Psychiatric: Negative Endocrine: No heat or cold intolerance. No recent weight gain. Genitourinary: No dysuria or hematuria. All other 14 point ROS negative except the above Past Medical History Past Medical History: Atrial Fibrillation, Coronary Artery Disease (CAD), COPD, Deep Vein Thrombosis (DVT), GERD/Reflux, GI Bleed, Hyperlipidemia, Hypertension, Osteoarthritis (OA), Pneumonia, Sleep Apnea/CPAP/BIPAP Additional Past Medical History / Comment(s): DVT- LEFT LEG, CPAP, pt uses 3 liters 02 when active and at night with cpap. pt has portable 02 History of Any Multi-Drug Resistant Organisms: MRSA Date of last positivie culture/infection: 03/01/22 MRSA MDRO Source:: Right Axilla Past Surgical History: Heart Catheterization With Stent, Orthopedic Surgery Additional Past Surgical History / Comment(s): ABD AORTOGRAM. Other SX: (construction accident balcony fell from building)HAD CRUSHING INJURY TO ANKLES HAD FUSION DONE JOSE ALBERTO, LT FOOT TOE PARTIAL AMP. CHEST TUBE FOR PNEUMOTHORAX. SURGERY TO REMOVE BLOOD CLOT FROM LEG. Bronchial washings/lavage, EGD. femoral bypass,heart stents x3 Past Anesthesia/Blood Transfusion Reactions: No Reported Reaction Additional Past Anesthesia/Blood Transfusion Reaction / Comment(s): Pt states he has never received blood. Date of Last Stent Placement:: 04/2021 Past Psychological History: No Psychological Hx Reported Smoking Status: Current every day smoker Past Alcohol Use History: None Reported Past Drug Use History: Marijuana - Past Family History Father Family Medical History: Coronary Artery Disease (CAD), Diabetes Mellitus, Myocardial Infarction (MD), Pulmonary Embolus Additional Family Medical History / Comment(s): PE Mother Family Medical History: CVA/TIA Medications and Allergies Home Medications Medication Instructions Recorded Confirmed Type Albuterol Sulfate [Ventolin HFA] 2 puff INHALATION RT-Q6H PRN 11/13/14 10/05/23 History Metoprolol Tartrate 25 mg PO BID 07/27/15 10/05/23 History Gabapentin 600 mg PO TID PRN 03/21/16 10/05/23 History Albuterol Nebulized [Ventolin 2.5 mg INHALATION RT-TID 12/15/21 10/05/23 History Nebulized] Fluticasone/Umeclidin/Vilanter 1 puff INHALATION RT-DAILY 12/15/21 10/05/23 Hist ory [Trelegy Ellipta 100-62.5-25] Pantoprazole Sodium 20 mg PO DAILY 12/15/21 10/05/23 History Ibuprofen 800 mg PO Q8H PRN 12/10/22 10/05/23 History Atorvastatin Calcium [Lipitor] 80 mg PO DAILY 06/11/23 10/05/23 History Cholecalciferol [Vitamin D3 (25 50 mcg PO DAILY 06/11/23 10/05/23 History Mcg = 1000 Iu)] ALPRAZolam [Xanax] 0.5 mg PO Q12H PRN 10/05/23 10/05/23 History Aspirin EC [Ecotrin Low Dose] 81 mg PO DAILY 10/05/23 10/05/23 History predniSONE 10 mg PO DAILY 10/05/23 10/05/23 History Allergies Allergy/AdvReac Type Severity Reaction Status Date / Time No Known Allergies Allergy Verified 10/05/23 15:22 Physical Exam Vitals: Vital Signs Temp Pulse Pulse Resp BP Pulse Ox 10/07/23 11:28 76 10/07/23 11:18 76 10/07/23 08:33 76 10/07/23 08:23 72 10/07/23 08:22 74 18 10/07/23 07:50 97.7 F 74 18 120/76 98 10/07/23 01:07 98.6 F 57 L 19 108/63 98 10/06/23 21:33 66 10/06/23 21:23 65 10/06/23 19:08 98.6 F 65 18 124/78 92 L 10/06/23 15:25 75 10/06/23 15:17 72 10/06/23 14:00 98.0 F 79 18 101/58 100 Intake and Output 10/06/23 10/07/23 10/07/23 22:59 06:59 14:59 Output Total 900 300 Balance -900 -300 Output: Urine 900 300 GENERAL EXAM: Alert, pleasant 62-year-old male patient, on 4 L nasal cannula, fairly comfortable in no apparent distress. HEAD: Normocephalic. EYES: Normal reaction of pupils, equal size. NOSE: Clear with pink turbinates. THROAT: No erythema or exudates. NECK: No masses, no JVD. CHEST: No chest wall deformity. LUNGS: Equal air entry with bilateral end expiratory wheeze, diminished. Breath sounds are mildly diminished in all 4 extremities. Chest wall is also sore. CVS: S1 and S2 normal with no audible murmur, regular rhythm. ABDOMEN: No hepatosplenomegaly, normal bowel sounds, no guarding or rigidity. SPINE: No scoliosis or deformity SKIN: No rashes CENTRAL NERVOUS SYSTEM: No focal deficits, tone is normal in all 4 extremities. EXTREMITIES: There is no peripheral edema. No clubbing, no cyanosis. Peripheral pulses are intact. Results - Laboratory Findings CBC and BMP: 10/06/23 05:58 10/06/23 05:58 PT/INR, D-dimer PT 10.8 sec (10.0-12.5) 10/05/23 12:57 INR 1.0 (<1.2) 10/05/23 12:57 Abnormal lab findings: Abnormal Labs 10/05/23 10/05/23 10/05/23 12:57 12:57 12:57 WBC 11.9 H Neutrophils # 11.0 H Lymphocytes # 0.4 L Eosinophils # Sodium 125 L Chloride 82 L Carbon Dioxide 37 H Anion Gap BUN 8 L Creatinine 0.47 L Glucose 132 H Plasma Lactic Acid Ned 2.1 H* Calcium 10/06/23 10/06/23 05:58 05:58 WBC Neutrophils # 8.25 H Lymphocytes # 0.64 L Eosinophils # 0.01 L Sodium 132 L Chloride 85 L Carbon Dioxide Anion Gap 20.50 H BUN Creatinine Glucose 111 H Plasma Lactic Acid Ned Calcium 10.4 H - Diagnostic Findings Chest x-ray: image reviewed Assessment and Plan Plan: Acute exacerbation of chronic COPD with secondary shortness of breath. Chest x- ray history of any acute pulmonary complaints. Chronic smoker and currently smokes about 5 cigarettes a day. severe COPD, with an FEV1 that is 27% of predicted, currently on Trelegy Ellipta on prednisone 10 mg p.o. daily on outpatient basis Chronic hypoxic respiratory failure the patient has been maintained on oxygen therapy at 4 liters Chronic smoking, currently smoking about 5 cigarettes a day Significant limitation exercise capacity secondary advanced COPD History of coronary artery disease, status post PCI with stent placement, previous stenting of the RCA and mid LAD back in 2020 History of atrial fibrillation, current rhythm is sinus History of deep vein thrombosis, involving left lower extremity History of GI bleed, and gastroesophageal reflux disease, inactive and stable History of hyperlipidemia History of hypertension History of pneumonia History of obstructive sleep apnea syndrome, on home CPAP History of osteoarthritis History of pneumothorax Plan Continue DuoNeb updrafts 4 times a day [id number] Perforomist and budesonide nebulized treatments twice a day IV Solu-Medrol 60 mg every 6 hours Empiric antibiotic coverage with IV Rocephin Mucinex DM for cough and congestion [place] 5 for pain control as the patient is having significant skeletal chest wall pain Smoking cessation counseling Titrate oxygen flow currently at 4 L Will continue to follow.
--- NOTE | 2023-10-07 17:32 | PN ---
PROGRESS NOTE DATE OF SERVICE: 10/07/2023 SUBJECTIVE: This is a 63-year-old gentleman, who was admitted with COPD acute exacerbation, status post community-acquired pneumonia, who is being closely monitored. No chest pain. No palpitations. No fever. The most recent chest x-ray, which I reviewed personally showed COPD. PHYSICAL EXAMINATION: VITAL SIGNS: Pulse is 76, blood pressure 120/73, and respirations 18. CHEST: Few scattered rhonchi and crackles. ABDOMEN: Soft. NERVOUS SYSTEM: Nonfocal. LABORATORY DATA: Sodium 132, rest of labs are noted. ASSESSMENT: 1. Chronic obstructive pulmonary disease acute exacerbation with community-acquired pneumonia. 2. Acute on chronic hypoxic respiratory failure. 3. Hyponatremia. 4. Hypertension. 5. Multiple medical issues. RECOMMENDATIONS: Recommend to continue current medical management and symptomatic treatment. Otherwise, closely follow. Repeat labs. Antibiotics. Possible discharge in the next 24 to 48 hours. MMODL / IJN: [id number] /
[2023-10-07] MEDS: methylPREDNISolone SOD SUCCI 125 MG/2 ML VIAL IV SCH (18:08)
[2023-10-07] MEDS: FORMOTEROL FUMARATE 20 MCG/2 ML NEBU INHALATION SCH (21:34)
[2023-10-07] MEDS: BUDESONIDE 0.5 MG/2 ML NEBU INHALATION SCH (21:34)
[2023-10-08 08:43] LABS: Basophils # (A) 0.01 X 10*3/uL (0.00-0.10); Basophils % (A) 0.1 %; Eosinophils # (A) 0.01 X 10*3/uL (0.04-0.35); Eosinophils % (A) 0.1 %; HCT 41.6 % (39.6-50.0); HGB 13.6 g/dL (13.0-17.0); Lymphocytes % (A) 4.8 %; MCH 29.8 pg (27.0-32.0); MCHC 32.7 g/dL (32.0-37.0); Mean Platelet Volume 10.2 FL (9.5-12.2); Monocytes # (A) 0.38 X 10*3/uL (0.20-1.00); Monocytes % (A) 4.5 %; NRBC Per 100 WBC 0 X 10*3/uL (0.00-0.01); Neutrophils # (A) 7.61 X 10*3/uL (1.80-7.70); Neutrophils % (A) 90.4 %; Platelet Count 278 X 10*3/uL (140-440); RBC 4.57 X 10*6/uL (4.40-5.60); RDW 13.4 % (11.5-14.5); WBC 8.42 X 10*3/uL (4.50-10.00)
[2023-10-08 09:01] LABS: Blood Urea Nitrogen 12.7 mg/dL (9.0-27.0); Calcium 9.2 mg/dL (8.7-10.3); Carbon Dioxide 31.6 mmol/L (21.6-31.8); Chloride 88 mmol/L (96-109); Glucose 134 mg/dL (70-110); Potassium 4.3 mmol/L (3.5-5.5); Sodium 130 mmol/L (135-145)
--- NOTE | 2023-10-08 14:18 | PN ---
PROGRESS NOTE DATE OF SERVICE: 10/08/2023 SUBJECTIVE: This 63-year-old gentleman admitted with COPD acute exacerbation, closely monitored. No chest pain, no palpitations, no fever. OBJECTIVE: VITAL SIGNS: Pulse is 80, blood pressure 122/68, respirations 18. CHEST: Few scattered rhonchi and crackles. ABDOMEN: Soft. NERVOUS SYSTEM: No focal deficits. LABORATORY DATA: Reviewed. ASSESSMENT: 1. Chronic obstructive pulmonary disease acute exacerbation with community-acquired pneumonia. 2. Acute on chronic hypoxic respiratory failure. 3. Hyponatremia. 4. Hypertension. 5. Multiple medical issues. RECOMMENDATIONS: Recommended to continue current management, continue symptomatic treatment, otherwise continue with bronchodilators, steroids, and antibiotics. Closely follow with Pulmonary. Further recommendations will follow. Repeat labs. MMEVA / CAYETANON: [id number] /
--- NOTE | 2023-10-08 14:32 | P.PN ---
Subjective Progress Note Date: 10/08/23 This is a 63-year-old male patient presented to the hospital because of increased dyspnea, cough, chest wall pain, chest congestion without the ability of producing any sputum, increased bronchospasm wheezing. He has become extremely debilitated over the past few months to the point where the patient was unable to perform activities of day-to-day life without having any significant shortness of breath. He is known to have severe COPD with chronic hypoxic respiratory failure and a baseline FEV1 of 27% of predicted. He is oxygen dependent at 4 L of O2 on outpatient basis. He is also known to have CAD with previous coronary intervention and stenting that was done involving the LAD back in 2020. He has chronic A-fib hypertension hyperlipidemia and obstructive sleep apnea. He has also previous history of pneumothoraces. The chest x-ray that was done at time of admission shows no evidence of any pulm infiltrates. There is hyperinflation and evidence of COPD. White cell count of 9.6 with a hemoglobin 14 and platelet count 279. Sodium is at 132, potassium is at 4.2, BUN is 11 with a creatinine of 0.6. Calcium level is at 10.4. Lactic acid level is at 1.2. Viral screen has been negative and originally admits she is also negative. Currently on IV Rocephin as an empiric antibiotic coverage. He is also on DuoNeb updrafts. He has been maintained on Trelegy Ellipta and prednisone 10 mg as a maintenance on outpatient basis. He has been smoking on 5 cigarettes on a daily basis. The patient is seen today October 08, 2023 in follow-up on the regular medical floor. He is currently resting in bed. Awake and alert in no acute distress. Improved today compared to yesterday but not quite back to his baseline. Still somewhat bronchospastic and wheezing. Blood cultures revealed no growth. White count 8.4. Hemoglobin 13.6. Platelets 278. Sodium 130. Potassium 4.3. Bicarb 32. BUN 13. Creatinine 0.5. Glucose 134. He is continued on DuoNeb ventilations, Pulmicort and Perforomist inhalations, Solu-Medrol. He remains on Mucinex. Antibiotics in the form of ceftriaxone. Objective - Vital Signs Vital signs: Vital Signs Temp 98.3 F 10/08/23 13:49 Pulse 75 10/08/23 13:49 Resp 18 10/08/23 13:49 BP 136/51 10/08/23 13:49 Pulse Ox 95 10/08/23 13:49 FiO2 Intake & Output 10/07/23 10/08/23 10/08/23 18:59 06:59 18:59 Output Total 2600 2100 300 Balance -2600 -2100 -300 Output: Urine 2600 2100 300 - Exam GENERAL EXAM: Alert, pleasant 63-year-old male, on 4 L nasal cannula, fairly comfortable in no apparent distress. HEAD: Normocephalic. EYES: Normal reaction of pupils, equal size. NOSE: Clear with pink turbinates. THROAT: No erythema or exudates. NECK: No masses, no JVD. CHEST: No chest wall deformity. LUNGS: Equal air entry with bilateral end expiratory wheeze, diminished. CVS: S1 and S2 normal with no audible murmur, regular rhythm. ABDOMEN: No hepatosplenomegaly, normal bowel sounds, no guarding or rigidity. SPINE: No scoliosis or deformity SKIN: No rashes CENTRAL NERVOUS SYSTEM: No focal deficits, tone is normal in all 4 extremities. EXTREMITIES: There is no peripheral edema. No clubbing, no cyanosis. Pe ripheral pulses are intact. - Labs CBC & Chem 7: 10/08/23 05:41 10/08/23 05:41 Labs: Abnormal Lab Results - Last 24 Hours (Table) 10/08/23 10/08/23 Range/Units 05:41 05:41 Lymphocytes # 0.40 L (0.90-5.00) X 10*3/uL Eosinophils # 0.01 L (0.04-0.35) X 10*3/uL Sodium 130 L (135-145) mmol/L Chloride 88 L (96-109) mmol/L Creatinine 0.5 L (0.6-1.5) mg/dL BUN/Creatinine Ratio 25.40 H (12.00-20.00) Ratio Glucose 134 H (70-110) mg/dL Microbiology - Last 24 Hours (Table) 10/05/23 15:30 Blood Culture - Preliminary Blood 10/05/23 15:15 Blood Culture - Preliminary Blood Assessment and Plan Assessment: Acute exacerbation of chronic COPD with secondary shortness of breath. Chest x- ray does not reveal any acute pulmonary process Chronic smoker and currently smokes about 5 cigarettes a day. Severe COPD, with an FEV1 that is 27% of predicted, currently on Trelegy Ellipta on prednisone 10 mg p.o. daily on outpatient basis Chronic hypoxic respiratory failure the patient has been maintained on oxygen therapy at 4 liters Significant limitation exercise capacity secondary advanced COPD History of coronary artery disease, status post PCI with stent placement, previous stenting of the RCA and mid LAD back in 2020 History of atrial fibrillation, current rhythm is sinus History of deep vein thrombosis, involving left lower extremity History of GI bleed, and gastroesophageal reflux disease, inactive and stable History of hyperlipidemia History of hypertension History of pneumonia History of obstructive sleep apnea syndrome, on home CPAP History of osteoarthritis History of pneumothorax Plan: The patient was seen and evaluated Labs and medications reviewed Improved but not quite back to his baseline Continue the current treatment plan Titrate the FiO2 as tolerated Educated regarding smoking cessation We will continue to follow I have personally seen and examined the patient, performed the documentation and the assessment and plan as written. Number of minutes spent on the visit: 10.
[2023-10-09 01:38] LABS: Glucose,Whole Blood 110 mg/dL (70-110)
--- NOTE | 2023-10-09 08:04 | XR ---
EXAMINATION TYPE: XR chest 1V portable DATE OF EXAM: 10/09/2023 COMPARISON: 10/06/2023 INDICATION: Short of breath COPD TECHNIQUE: Single frontal view of the chest is obtained. FINDINGS: The heart size is normal. The pulmonary vasculature is normal. There is a development of a left basilar consolidation. Correlate for pneumonia IMPRESSION: 1. a developing consolidation left base. Correlate for pneumonia. Follow-up is recommended.
[2023-10-09 09:11] LABS: Basophils # (A) 0 X 10*3/uL (0.00-0.10); Basophils % (A) 0 %; Eosinophils # (A) 0 X 10*3/uL (0.04-0.35); Eosinophils % (A) 0 %; HCT 42.9 % (39.6-50.0); Lymphocytes # (A) 0.38 X 10*3/uL (0.90-5.00); MCH 29.4 pg (27.0-32.0); MCHC 32.6 g/dL (32.0-37.0); MCV 89.9 FL (80.0-97.0); Mean Platelet Volume 10.2 FL (9.5-12.2); Monocytes # (A) 0.49 X 10*3/uL (0.20-1.00); Monocytes % (A) 5.2 %; NRBC Per 100 WBC 0 X 10*3/uL (0.00-0.01); Neutrophils # (A) 8.53 X 10*3/uL (1.80-7.70); Neutrophils % (A) 90.5 %; Platelet Count 284 X 10*3/uL (140-440); RBC 4.77 X 10*6/uL (4.40-5.60); RDW 13.4 % (11.5-14.5); WBC 9.43 X 10*3/uL (4.50-10.00)
[2023-10-09 09:21] LABS: Blood Urea Nitrogen 16.7 mg/dL (9.0-27.0); Calcium 9.5 mg/dL (8.7-10.3); Carbon Dioxide 30.5 mmol/L (21.6-31.8); Chloride 91 mmol/L (96-109); Glucose 120 mg/dL (70-110); Potassium 4.1 mmol/L (3.5-5.5); Sodium 132 mmol/L (135-145)
--- NOTE | 2023-10-09 15:09 | P.PN ---
Subjective Progress Note Date: 10/09/23 This is a 63-year-old male patient presented to the hospital because of increased dyspnea, cough, chest wall pain, chest congestion without the ability of producing any sputum, increased bronchospasm wheezing. He has become extremely debilitated over the past few months to the point where the patient was unable to perform activities of day-to-day life without having any significant shortness of breath. He is known to have severe COPD with chronic hypoxic respiratory failure and a baseline FEV1 of 27% of predicted. He is oxygen dependent at 4 L of O2 on outpatient basis. He is also known to have CAD with previous coronary intervention and stenting that was done involving the LAD back in 2020. He has chronic A-fib hypertension hyperlipidemia and obstructive sleep apnea. He has also previous history of pneumothoraces. The chest x-ray that was done at time of admission shows no evidence of any pulm infiltrates. There is hyperinflation and evidence of COPD. White cell count of 9.6 with a hemoglobin 14 and platelet count 279. Sodium is at 132, potassium is at 4.2, BUN is 11 with a creatinine of 0.6. Calcium level is at 10.4. Lactic acid level is at 1.2. Viral screen has been negative and originally admits she is also negative. Currently on IV Rocephin as an empiric antibiotic coverage. He is also on DuoNeb updrafts. He has been maintained on Trelegy Ellipta and prednisone 10 mg as a maintenance on outpatient basis. He has been smoking on 5 cigarettes on a daily basis. The patient is seen today October 08, 2023 in follow-up on the regular medical floor. He is currently resting in bed. Awake and alert in no acute distress. Improved today compared to yesterday but not quite back to his baseline. Still somewhat bronchospastic and wheezing. Blood cultures revealed no growth. White count 8.4. Hemoglobin 13.6. Platelets 278. Sodium 130. Potassium 4.3. Bicarb 32. BUN 13. Creatinine 0.5. Glucose 134. He is continued on DuoNeb ventilations, Pulmicort and Perforomist inhalations, Solu-Medrol. He remains on Mucinex. Antibiotics in the form of ceftriaxone. The patient is seen today October 09, 2023 in follow-up on the regular medical floor. He is awake and alert in no acute distress. He has been up ambulating with his walker. Currently up in a chair. Feeling better today compared to yesterday. He is maintaining O2 saturations in the 90s on 3.5 L/min per nasal cannula. He is afebrile. Hemodynamically stable. He is continued on DuoNeb ventilations, Pulmicort and performing scintillations, Solu-Medrol. His FEV1 value is only 27% of predicted. He has been slow to progress. Today's chest x- ray is showing development of a left basilar consolidation. White count 9.4. Hemoglobin 14.0. Platelets 284. Sodium 132. Potassium 4.1. Bicarb 30. BUN 17. Creatinine 0.5. Glucose 120. Procalcitonin is pending. He did receive ceftriaxone. Objective - Vital Signs Vital signs: Vital Signs Temp 97.2 F L 10/09/23 13:40 Pulse 64 10/09/23 13:40 Resp 18 10/09/23 13:40 BP 127/77 10/09/23 13:40 Pulse Ox 97 10/09/23 13:40 FiO2 Intake & Output 10/08/23 10/09/23 10/09/23 18:59 06:59 18:59 Output Total 1200 700 Balance -1200 -700 Output: Urine 1200 700 Other: Voiding Method Urinal - Exam GENERAL EXAM: Alert, pleasant 63-year-old male, on 3.5 L nasal cannula, up in a chair, comfortable in no apparent distress. HEAD: Normocephalic. EYES: Normal reaction of pupils, equal size. NOSE: Clear with pink turbinates. THROAT: No erythema or exudates. NECK: No masses, no JVD. CHEST: No chest wall deformity. LUNGS: Equal air entry with bilateral end expiratory wheeze, diminished. CVS: S1 and S2 normal with no audible murmur, regular rhythm. ABDOMEN: No hepatosplenomegaly, normal bowel sounds, no guarding or rigidity. SPINE: No scoliosis or deformity SKIN: No rashes CENTRAL NERVOUS SYSTEM: No focal deficits, tone is normal in all 4 extremities. EXTREMITIES: There is no peripheral edema. No clubbing, no cyanosis. Peripheral pulses are intact. - Labs CBC & Chem 7: 10/09/23 05:54 10/09/23 05:54 Labs: Abnormal Lab Results - Last 24 Hours (Table) 10/09/23 10/09/23 Range/Units 05:54 05:54 Neutrophils # 8.53 H (1.80-7.70) X 10*3/uL Lymphocytes # 0.38 L (0.90-5.00) X 10*3/uL Eosinophils # 0 L (0.04-0.35) X 10*3/uL Sodium 132 L (135-145) mmol/L Chloride 91 L (96-109) mmol/L Creatinine 0.5 L (0.6-1.5) mg/dL BUN/Creatinine Ratio 33.40 H (12.00-20.00) Ratio Glucose 120 H (70-110) mg/dL Microbiology - Last 24 Hours (Table) 10/05/23 15:30 Blood Culture - Preliminary Blood 10/05/23 15:15 Blood Culture - Preliminary Blood Assessment and Plan Assessment: Acute exacerbation of chronic COPD with secondary shortness of breath. Follow- up chest x-ray reveals elevated left hemidiaphragm or hital hernia versus developing consolidation left base. Procalcitonin pending. Chronic smoker and currently smokes about 5 cigarettes a day Severe COPD, with an FEV1 that is 27% of predicted, currently on Trelegy Ellipta on prednisone 10 mg p.o. daily on outpatient basis Chronic hypoxic respiratory failure the patient has been maintained on oxygen therapy at 4 liters Significant limitation exercise capacity secondary advanced COPD History of coronary artery disease, status post PCI with stent placement, previous stenting of the RCA and mid LAD back in 2020 History of atrial fibrillation, current rhythm is sinus History of deep vein thrombosis, involving left lower extremity History of GI bleed, and gastroesophageal reflux disease, inactive and stable History of hyperlipidemia History of hypertension History of pneumonia History of obstructive sleep apnea syndrome, on home CPAP History of osteoarthritis History of pneumothorax Plan: The patient was seen and evaluated Chest x-ray, labs and medications reviewed Continue the current treatment plan Check a procalcitonin Titrate the FiO2 as tolerated We will continue to follow I have personally seen and examined the patient, performed the documentation and the assessment and plan as written. Number of minutes spent on the visit: 10.
[2023-10-09] MEDS: BUDESONIDE 1 MG/2 ML NEBU INHALATION SCH (21:57)
--- NOTE | 2023-10-10 07:03 | P.PN ---
Subjective Progress Note Date: 10/09/23 This is a pleasant 63-year-old male who was recently admitted with increased shortness of breath with COPD exacerbation being closely monitored. Pulmonary following maintained on IV steroids along with breathing treatments. Patient was continued on antibiotics with concerns of community-acquired pneumonia. Patient chronically wears oxygen outpatient. Patient with reported weakness being evaluated by physical therapy recommending rehab and patient is agreeable. Case management following working on discharge planning and excepting ECF. Patient will also require insurance authorization. Review of systems: Constitutional: No reports of fatigue, fever, or chills Cardiovascular: No reports of chest pain or palpitations Respiratory: No reports of worsening shortness of breath or cough GI: no reports of nausea, no reports of vomiting, no diarrhea : No reports of dysuria or retention Neurovascular: reports of generalized weakness, difficulty ambulating All medications have been reviewed PHYSICAL EXAMINATION: GENERAL: The patient is alert and oriented x4, Well developed, thin built, elderly appearing HEENT: Pupils are round and equally reacting to light. EOMI. no scleral icterus. No conjunctival pallor. Normocephalic, atraumatic. No pharyngeal erythema. No thyromegaly. CARDIOVASCULAR: S1 and S2 muffled PULMONARY: diminished breath sounds bilaterally with faint expiratory wheezing and coarse rhonchi noted. ABDOMEN: soft. Nontender on exam. Thin. non-distended, normoactive bowel sounds. No palpable organomegaly. MUSCULOSKELETAL: No joint swelling or deformity. EXTREMITIES: No cyanosis, clubbing, or pedal edema. NEUROLOGICAL: Gross neurological examination did not reveal any focal deficits. Diffuse weakness SKIN: No rashes. Assessment: Acute on chronic hypoxic respiratory failure secondary to COPD exacerbation Concerns for community-acquired pneumonia, present on admission Hyponatremia Hypertension history Generalized weakness with gait dysfunction GI prophylaxis DVT prophylaxis Full code Plan: Recommend to continue with current medications and management with pulmonary following. Patient continued on IV steroids and DuoNeb treatments Encouraged to increase activity as tolerated Patient was evaluated by PT/OT therapy recommending rehab and patient is agreeable as he feels he is unable to manage being home safely. Case management/social work following working on discharge planning as patient will require insurance authorization Due to multiple complex medical issues, prognosis is guarded Possible discharge in the next 24 to 48 hours The impression and plan of care has been dictated by Sita Franklin, nurse practitioner as directed. Dr. Amador MD I have performed a history and examination and MDM of this patient, discussed the same with the dictator, and agree with the dictator's assessment and plan as written ,documented as a scribe. Based on total visit time, I have performed more than 50% of the visit. Any additional findings or plans will be noted. Objective - Vital Signs Vital signs: Vital Signs Temp 97.2 F L 10/09/23 13:40 Pulse 64 10/09/23 13:40 Resp 18 10/09/23 13:40 BP 127/77 10/09/23 13:40 Pulse Ox 97 10/09/23 13:40 FiO2 Intake & Output 10/08/23 10/09/23 10/09/23 18:59 06:59 18:59 Output Total 1200 700 Balance -1200 -700 Output: Urine 1200 700 Other: Voiding Method Urinal - Labs CBC & Chem 7: 10/09/23 05:54 10/09/23 05:54 Labs: Abnormal Lab Results - Last 24 Hours (Table) 10/09/23 10/09/23 Range/Units 05:54 05:54 Neutrophils # 8.53 H (1.80-7.70) X 10*3/uL Lymphocytes # 0.38 L (0.90-5.00) X 10*3/uL Eosinophils # 0 L (0.04-0.35) X 10*3/uL Sodium 132 L (135-145) mmol/L Chloride 91 L (96-109) mmol/L Creatinine 0.5 L (0.6-1.5) mg/dL BUN/Creatinine Ratio 33.40 H (12.00-20.00) Ratio Glucose 120 H (70-110) mg/dL Microbiology - Last 24 Hours (Table) 10/05/23 15:30 Blood Culture - Preliminary Blood 10/05/23 15:15 Blood Culture - Preliminary Blood
[2023-10-10] MEDS: MULTIVITAMINS, THERA 1 EACH TAB PO SCH (13:40)
[2023-10-10] MEDS: FOLIC ACID 1 MG TAB PO SCH (13:40)
[2023-10-10] MEDS: THIAMINE 100 MG TAB PO SCH (13:40)
--- NOTE | 2023-10-10 16:08 | P.PN ---
Subjective Progress Note Date: 10/10/23 This is a 63-year-old male patient presented to the hospital because of increased dyspnea, cough, chest wall pain, chest congestion without the ability of producing any sputum, increased bronchospasm wheezing. He has become extremely debilitated over the past few months to the point where the patient was unable to perform activities of day-to-day life without having any significant shortness of breath. He is known to have severe COPD with chronic hypoxic respiratory failure and a baseline FEV1 of 27% of predicted. He is oxygen dependent at 4 L of O2 on outpatient basis. He is also known to have CAD with previous coronary intervention and stenting that was done involving the LAD back in 2020. He has chronic A-fib hypertension hyperlipidemia and obstructive sleep apnea. He has also previous history of pneumothoraces. The chest x-ray that was done at time of admission shows no evidence of any pulm infiltrates. There is hyperinflation and evidence of COPD. White cell count of 9.6 with a hemoglobin 14 and platelet count 279. Sodium is at 132, potassium is at 4.2, BUN is 11 with a creatinine of 0.6. Calcium level is at 10.4. Lactic acid level is at 1.2. Viral screen has been negative and originally admits she is also negative. Currently on IV Rocephin as an empiric antibiotic coverage. He is also on DuoNeb updrafts. He has been maintained on Trelegy Ellipta and prednisone 10 mg as a maintenance on outpatient basis. He has been smoking on 5 cigarettes on a daily basis. The patient is seen today October 08, 2023 in follow-up on the regular medical floor. He is currently resting in bed. Awake and alert in no acute distress. Improved today compared to yesterday but not quite back to his baseline. Still somewhat bronchospastic and wheezing. Blood cultures revealed no growth. White count 8.4. Hemoglobin 13.6. Platelets 278. Sodium 130. Potassium 4.3. Bicarb 32. BUN 13. Creatinine 0.5. Glucose 134. He is continued on DuoNeb ventilations, Pulmicort and Perforomist inhalations, Solu-Medrol. He remains on Mucinex. Antibiotics in the form of ceftriaxone. The patient is seen today October 09, 2023 in follow-up on the regular medical floor. He is awake and alert in no acute distress. He has been up ambulating with his walker. Currently up in a chair. Feeling better today compared to yesterday. He is maintaining O2 saturations in the 90s on 3.5 L/min per nasal cannula. He is afebrile. Hemodynamically stable. He is continued on DuoNeb ventilations, Pulmicort and performing scintillations, Solu-Medrol. His FEV1 value is only 27% of predicted. He has been slow to progress. Today's chest x- ray is showing development of a left basilar consolidation. White count 9.4. Hemoglobin 14.0. Platelets 284. Sodium 132. Potassium 4.1. Bicarb 30. BUN 17. Creatinine 0.5. Glucose 120. Procalcitonin is pending. He did receive ceftriaxone. The patient is seen today October 10, 2023 in follow-up on the regular medical floor. He is currently sitting up in bed. Awake and alert in no acute distress. Feeling nearly back to his baseline. He is maintaining O2 saturations in the 90s on 3 L/min per nasal cannula. Blood cultures revealed no growth. He remains on DuoNeb ventilations, Pulmicort and Perforomist inhalations, IV Solu-Medrol. Objective - Vital Signs Vital signs: Vital Signs Temp 98.3 F 10/10/23 14:11 Pulse 72 10/10/23 15:48 Resp 16 10/10/23 14:11 BP 121/85 10/10/23 14:11 Pulse Ox 96 10/10/23 14:11 FiO2 Intake & Output 10/09/23 10/10/23 10/10/23 18:59 06:59 18:59 Output Total 900 Balance -900 Weight 63.503 kg Output: Urine 900 Other: Voiding Method Toilet Urinal # Voids 4 1 - Exam GENERAL EXAM: Alert, 63-year-old male, on 3 L nasal cannula, sitting up in bed, comfortable in no apparent distress. HEAD: Normocephalic. EYES: Normal reaction of pupils, equal size. NOSE: Clear with pink turbinates. THROAT: No erythema or exudates. NECK: No masses, no JVD. CHEST: No chest wall deformity. LUNGS: Equal air entry with bilateral end expiratory wheeze, diminished. CVS: S1 and S2 normal with no audible murmur, regular rhythm. ABDOMEN: No hepatosplenomegaly, normal bowel sounds, no guarding or rigidity. SPINE: No scoliosis or deformity SKIN: No rashes CENTRAL NERVOUS SYSTEM: No focal deficits, tone is normal in all 4 extremities. EXTREMITIES: There is no peripheral edema. No clubbing, no cyanosis. Peripheral pulses are intact. - Labs CBC & Chem 7: 10/09/23 05:54 10/09/23 05:54 Assessment and Plan Assessment: Acute exacerbation of chronic COPD with secondary shortness of breath. Follow- up chest x-ray reveals elevated left hemidiaphragm or hital hernia versus developing consolidation left base. Procalcitonin 0.03. Antibiotics discontinued Chronic smoker and currently smokes about 5 cigarettes a day Severe COPD, with an FEV1 that is 27% of predicted, currently on Trelegy Ellipta on prednisone 10 mg p.o. daily on outpatient basis Chronic hypoxic respiratory failure the patient has been maintained on oxygen therapy at 4 liters Significant limitation exercise capacity secondary advanced COPD History of coronary artery disease, status post PCI with stent placement, previous stenting of the RCA and mid LAD back in 2020 History of atrial fibrillation, current rhythm is sinus History of deep vein thrombosis, involving left lower extremity History of GI bleed, and gastroesophageal reflux disease, inactive and stable History of hyperlipidemia History of hypertension History of pneumonia History of obstructive sleep apnea syndrome, on home CPAP History of osteoarthritis History of pneumothorax Plan: The patient was seen and evaluated Labs and medications reviewed Procalcitonin negative Antibiotics discontinued Continue Symbicort and DuoNeb ventilation Transition Solu-Medrol to prednisone taper Titrate the FiO2 as tolerated Cleared for discharge from the pulmonary standpoint Plan is for subacute rehab at [facility] I have personally seen and examined the patient, performed the documentation and the assessment and plan as written. Number of minutes spent on the visit: 10.
--- NOTE | 2023-10-11 05:16 | P.PN ---
Subjective Progress Note Date: 10/10/23 This is a pleasant 63-year-old male who was recently admitted with increased shortness of breath with COPD exacerbation being closely monitored. Pulmonary following maintained on IV steroids along with breathing treatments. Patient was continued on antibiotics with concerns of community-acquired pneumonia. Patient chronically wears oxygen outpatient. Patient with reported weakness being evaluated by physical therapy recommending rehab and patient is agreeable. Case management following working on discharge planning and excepting ECF. Patient will also require insurance authorization. 10/10/2023 Patient seen in follow-up today continued on IV steroids along with DuoNebs with pulmonary following. Patient will likely transition to oral prednisone and continue on DuoNeb treatments 4 times daily and as needed. Continue with supplemental oxygen as patient chronically wears oxygen outpatient. Patient with generalized weakness evaluated by physical therapy recommending rehab and currently awaiting insurance authorization for ECF. Patient has been accepted at [facility] pending authorization. Patient is afebrile with no reports of chest pain. Patient continues to report shortness of breath with exertion and coughing spells although improved from previous. Continue increase activity as tolerated encouraged oral intake. No reported nausea or vomiting noted. Review of systems: Constitutional: No reports of fatigue, fever, or chills Cardiovascular: No reports of chest pain or palpitations Respiratory: No reports of worsening shortness of breath or cough GI: no reports of nausea, no reports of vomiting, no diarrhea : No reports of dysuria or retention Neurovascular: reports of generalized weakness, difficulty ambulating All medications have been reviewed PHYSICAL EXAMINATION: GENERAL: The patient is alert and oriented x4, Well developed, thin built, elderly appearing HEENT: Pupils are round and equally reacting to light. EOMI. no scleral icterus. No conjunctival pallor. Normocephalic, atraumatic. No pharyngeal erythema. No thyromegaly. CARDIOVASCULAR: S1 and S2 muffled PULMONARY: diminished breath sounds bilaterally with faint expiratory wheezing and coarse rhonchi noted. ABDOMEN: soft. Nontender on exam. Thin. non-distended, normoactive bowel s ounds. No palpable organomegaly. MUSCULOSKELETAL: No joint swelling or deformity. EXTREMITIES: No cyanosis, clubbing, or pedal edema. NEUROLOGICAL: Gross neurological examination did not reveal any focal deficits. Diffuse weakness SKIN: No rashes. Assessment: Acute on chronic hypoxic respiratory failure secondary to COPD exacerbation Concerns for community-acquired pneumonia, present on admission Hyponatremia Hypertension history Generalized weakness with gait dysfunction GI prophylaxis DVT prophylaxis Full code Plan: Recommend to continue with current medications and management with pulmonary following. Patient continued on IV steroids and DuoNeb treatments. Being transition to prednisone starting tomorrow and will continue with prednisone taper on discharge. Encouraged to increase activity as tolerated Patient was evaluated by PT/OT therapy recommending rehab and patient is agreeable as he feels he is unable to manage being home safely. Case management/social work following working on discharge and has been accepted at [facility]. Patient will require insurance authorization which is pending Due to multiple complex medical issues, prognosis is guarded Possible discharge in the next 24 to 48 hours The impression and plan of care has been dictated by Sita Franklin, nurse practitioner as directed. Dr. Amador MD I have performed a history and examination and MDM of this patient, discussed the same with the dictator, and agree with the dictator's assessment and plan as written ,documented as a scribe. Based on total visit time, I have performed more than 50% of the visit. Any additional findings or plans will be noted. Objective - Vital Signs Vital signs: Vital Signs Temp 98.0 F 10/10/23 07:30 Pulse 72 10/10/23 11:47 Resp 18 10/10/23 07:30 BP 130/64 10/10/23 07:30 Pulse Ox 97 10/10/23 08:19 FiO2 Intake & Output 10/09/23 10/10/23 10/10/23 18:59 06:59 18:59 Output Total 900 Balance -900 Output: Urine 900 Other: Voiding Method Toilet Urinal # Voids 4 1 - Labs CBC & Chem 7: 10/09/23 05:54 10/09/23 05:54
[2023-10-11 07:59] VITALS: RESP 18
[2023-10-11] MEDS: predniSONE 20 MG TAB PO SCH (08:13)
--- NOTE | 2023-10-11 14:23 | P.DS ---
Providers Date of admission: 10/05/23 14:46 Expected date of discharge: 10/11/23 Attending physician: Sussy Albert MD Consults: 10/06/23 11:34 Consult Physician Routine Consulting Provider: Jass Nelson Consult Reason/Comments: Pneumonia/COPD/hypoxic respiratory failure Do you want consulting provider notified?: Yes Primary care physician: Ashlyn Toro Hospital Course: Final diagnosis Acute on chronic hypoxic respiratory failure secondary to COPD exacerbation community-acquired pneumonia, present on admission Hyponatremia secondary to poor solute intake Hypertension history Generalized weakness with gait dysfunction GI prophylaxis DVT prophylaxis Full code Discharge disposition Patient is being discharged in a stable condition with guarded prognosis to [facility]. Patient will follow-up with Dr. Sai English in the outpatient setting upon discharge. Patient is to continue with prednisone taper and close outpatient follow-up with pulmonary as scheduled. Total time taken is greater than 35 minutes. Hospital course This is a 63-year-old male who was recently admitted with increased shortness of breath with acute COPD exacerbation. Patient continued on IV steroids along with [id number] breathing treatments being followed by pulmonary with initial concerns of possible pneumonia as well. Patient had received some IV antibiotics which have been discontinued. Patient is now on oral prednisone and will continue to taper prior to resuming oral daily dosing. Patient has been cleared for discharge from pulmonary with outpatient follow-up continue with DuoNeb treatments as well. Patient with generalized weakness evaluated by physical therapy recommending rehab and patient is agreeable. Patient has received insurance authorization and will be going to [facility]. Currently no reports of chest pain, no worsening shortness of breath, or palpitations. Patient is afebrile. No reports of nausea or vomiting and patient is tolerating diet. Patient will be going to [facility] today. Guarded prognosis and high risk for readmissions given patient's significant comorbidities. Physical exam: Gen: This is a 63-year-old male who is awake, alert and oriented x 3, thin built, elderly appearing HEENT: Head is atraumatic, normocephalic. Pupils equal, round. Sclerae is anicteric. NECK: Supple. No JVD. No lymphadenopathy. No thyromegaly. LUNGS: diminished breath sounds bilaterally with some scattered rhonchi. No intercostal retractions. HEART: Regular rate and rhythm. No murmur. ABDOMEN: Soft. Bowel sounds are present. No masses. No tenderness. EXTREMITIES: No pedal edema. No calf tenderness. Muscle wasting noted NEUROLOGICAL: Patient is awake, alert and oriented x3. Cranial nerves 2 through 12 are grossly intact. Diffusely weak Please refer to medication reconciliation sheet for a list of medications. The impression and plan of care has been dictated by Sita Franklin, Nurse Practitioner as directed. Bell MD I have performed a history and examination and MDM of this patient, discussed the same with the dictator, and agree with the dictator's assessment and plan as written ,documented as a scribe. Based on total visit time, I have performed more than 50% of the visit. Patient Condition at Discharge: Fair Plan - Discharge Summary Discharge Rx Participant: Yes New Discharge Prescriptions: New Ipratropium-Albuterol Nebulize [Duoneb 0.5 mg-3 mg/3 ml Soln] 3 ml INHALATION RT-Q4H PRN each PRN Reason: shortness of breath Thiamine [Vitamin B-1] 100 mg PO DAILY tab Ipratropium-Albuterol Nebulize [Duoneb 0.5 mg-3 mg/3 ml Soln] 3 ml INHALATION QID #360 ml Folic Acid 1 mg PO DAILY tab guaiFENesin-DM 600/30MG [Mucinex Dm] 2 each PO Q12HR tab Multivitamins, Thera [Multivitamin (formulary)] 1 each PO DAILY tab HYDROcodone/APAP 5-325MG [[place] 5-325] 1 each PO Q6H PRN #2 tab PRN Reason: Pain predniSONE 10 mg PO DIRECTED #30 tab Continue Albuterol Sulfate [Ventolin HFA] 2 puff INHALATION RT-Q6H PRN PRN Reason: Shortness Of Breath Or Wheezing Metoprolol Tartrate 25 mg PO BID Fluticasone/Umeclidin/Vilanter [Trelegy Ellipta 100-62.5-25] 1 puff INHALATION RT-DAILY Atorvastatin Calcium [Lipitor] 80 mg PO DAILY Aspirin EC [Ecotrin Low Dose] 81 mg PO DAILY Gabapentin 600 mg PO TID PRN #6 tab PRN Reason: Pain Albuterol Nebulized [Ventolin Nebulized] 2.5 mg INHALATION RT-TID Pantoprazole Sodium 20 mg PO DAILY Ibuprofen 800 mg PO Q8H PRN PRN Reason: Pain Cholecalciferol [Vitamin D3 (25 Mcg = 1000 Iu)] 50 mcg PO DAILY ALPRAZolam [Xanax] 0.5 mg PO Q12H PRN #2 tab PRN Reason: Anxiety Discontinued predniSONE 10 mg PO DAILY Discharge Medication List Albuterol Sulfate [Ventolin HFA] 2 puff INHALATION RT-Q6H PRN 11/13/14 [History] Metoprolol Tartrate 25 mg PO BID 07/27/15 [History] Albuterol Nebulized [Ventolin Nebulized] 2.5 mg INHALATION RT-TID 12/15/21 [History] Fluticasone/Umeclidin/Vilanter [Trelegy Ellipta 100-62.5-25] 1 puff INHALATION RT-DAILY 12/15/21 [History] Pantoprazole Sodium 20 mg PO DAILY 12/15/21 [History] Ibuprofen 800 mg PO Q8H PRN 12/10/22 [History] Atorvastatin Calcium [Lipitor] 80 mg PO DAILY 06/11/23 [History] Cholecalciferol [Vitamin D3 (25 Mcg = 1000 Iu)] 50 mcg PO DAILY 06/11/23 [History] Aspirin EC [Ecotrin Low Dose] 81 mg PO DAILY 10/05/23 [History] ALPRAZolam [Xanax] 0.5 mg PO Q12H PRN #2 tab 10/11/23 [Rx] Folic Acid 1 mg PO DAILY tab 10/11/23 [Rx] Gabapentin 600 mg PO TID PRN #6 tab 10/11/23 [Rx] HYDROcodone/APAP 5-325MG [[place] 5-325] 1 each PO Q6H PRN #2 tab 10/11/23 [Rx] Ipratropium-Albuterol Nebulize [Duoneb 0.5 mg-3 mg/3 ml Soln] 3 ml INHALATION QID #360 ml 10/11/23 [Rx] Ipratropium-Albuterol Nebulize [Duoneb 0.5 mg-3 mg/3 ml Soln] 3 ml INHALATION RT-Q4H PRN each 10/11/23 [Rx] Multivitamins, Thera [Multivitamin (formulary)] 1 each PO DAILY tab 10/11/23 [Rx] Thiamine [Vitamin B-1] 100 mg PO DAILY tab 10/11/23 [Rx] guaiFENesin-DM 600/30MG [Mucinex Dm] 2 each PO Q12HR tab 10/11/23 [Rx] predniSONE 10 mg PO DIRECTED #30 tab 10/11/23 [Rx] Follow up Appointment(s)/Referral(s): Cielo Gomez MD [STAFF PHYSICIAN] - 1 Week Ashlyn Toro MD [Primary Care Provider] - 1-2 days Activity/Diet/Wound Care/Special Instructions: Activity as tolerated Follow-up with primary care provider on discharge Follow-up with pulmonary outpatient Continue prednisone taper prior to resuming daily steroid dosing discussed with pulmonary Continue with inhalers along with DuoNeb treatments 4 times daily and as needed Continue supplemental oxygen Discharge Disposition: TRANSFER TO SNF/ECF
[2023-10-11 15:56] VITALS: BP 118/73; PULSE 69; TEMP 97.9
--- NOTE | 2023-10-11 16:32 | P.PN ---
Subjective Progress Note Date: 10/11/23 This is a 63-year-old male patient presented to the hospital because of increased dyspnea, cough, chest wall pain, chest congestion without the ability of producing any sputum, increased bronchospasm wheezing. He has become extremely debilitated over the past few months to the point where the patient was unable to perform activities of day-to-day life without having any significant shortness of breath. He is known to have severe COPD with chronic hypoxic respiratory failure and a baseline FEV1 of 27% of predicted. He is oxygen dependent at 4 L of O2 on outpatient basis. He is also known to have CAD with previous coronary intervention and stenting that was done involving the LAD back in 2020. He has chronic A-fib hypertension hyperlipidemia and obstructive sleep apnea. He has also previous history of pneumothoraces. The chest x-ray that was done at time of admission shows no evidence of any pulm infiltrates. There is hyperinflation and evidence of COPD. White cell count of 9.6 with a hemoglobin 14 and platelet count 279. Sodium is at 132, potassium is at 4.2, BUN is 11 with a creatinine of 0.6. Calcium level is at 10.4. Lactic acid level is at 1.2. Viral screen has been negative and originally admits she is also negative. Currently on IV Rocephin as an empiric antibiotic coverage. He is also on DuoNeb updrafts. He has been maintained on Trelegy Ellipta and prednisone 10 mg as a maintenance on outpatient basis. He has been smoking on 5 cigarettes on a daily basis. The patient is seen today October 08, 2023 in follow-up on the regular medical floor. He is currently resting in bed. Awake and alert in no acute distress. Improved today compared to yesterday but not quite back to his baseline. Still somewhat bronchospastic and wheezing. Blood cultures revealed no growth. White count 8.4. Hemoglobin 13.6. Platelets 278. Sodium 130. Potassium 4.3. Bicarb 32. BUN 13. Creatinine 0.5. Glucose 134. He is continued on DuoNeb ventilations, Pulmicort and Perforomist inhalations, Solu-Medrol. He remains on Mucinex. Antibiotics in the form of ceftriaxone. The patient is seen today October 09, 2023 in follow-up on the regular medical floor. He is awake and alert in no acute distress. He has been up ambulating with his walker. Currently up in a chair. Feeling better today compared to yesterday. He is maintaining O2 saturations in the 90s on 3.5 L/min per nasal cannula. He is afebrile. Hemodynamically stable. He is continued on DuoNeb ventilations, Pulmicort and performing scintillations, Solu-Medrol. His FEV1 value is only 27% of predicted. He has been slow to progress. Today's chest x- ray is showing development of a left basilar consolidation. White count 9.4. Hemoglobin 14.0. Platelets 284. Sodium 132. Potassium 4.1. Bicarb 30. BUN 17. Creatinine 0.5. Glucose 120. Procalcitonin is pending. He did receive ceftriaxone. The patient is seen today October 10, 2023 in follow-up on the regular medical floor. He is currently sitting up in bed. Awake and alert in no acute distress. Feeling nearly back to his baseline. He is maintaining O2 saturations in the 90s on 3 L/min per nasal cannula. Blood cultures revealed no growth. He remains on DuoNeb ventilations, Pulmicort and Perforomist inhalations, IV Solu-Medrol. The patient is seen today October 11, 2023 in follow-up on the regular medical floor. He is awake and alert in no acute distress. He is maintaining good O2 saturations in the 90s on 3 L/min per nasal cannula. He denies any worsening shortness of breath, cough or congestion. He has been afebrile. Hemodynam ically stable. Blood cultures revealed no growth. He is continue on DuoNeb ventilations, Pulmicort and performing scintillations, prednisone taper. Objective - Vital Signs Vital signs: Vital Signs Temp 97.9 F 10/11/23 13:21 Pulse 69 10/11/23 13:21 Resp 18 10/11/23 13:21 BP 118/73 10/11/23 13:21 Pulse Ox 98 10/11/23 13:21 FiO2 Intake & Output 10/10/23 10/11/23 10/11/23 18:59 06:59 18:59 Intake Total 800 Output Total 575 Balance -575 800 Weight 63.503 kg Intake: Oral 800 Output: Urine 575 Other: # Voids 6 - Exam GENERAL EXAM: Alert, pleasant 63-year-old male, on 3 L nasal cannula, comfortable in no apparent distress. HEAD: Normocephalic. EYES: Normal reaction of pupils, equal size. NOSE: Clear with pink turbinates. THROAT: No erythema or exudates. NECK: No masses, no JVD. CHEST: No chest wall deformity. LUNGS: Equal air entry with faint end expiratory wheeze, diminished. CVS: S1 and S2 normal with no audible murmur, regular rhythm. ABDOMEN: No hepatosplenomegaly, normal bowel sounds, no guarding or rigidity. SPINE: No scoliosis or deformity SKIN: No rashes CENTRAL NERVOUS SYSTEM: No focal deficits, tone is normal in all 4 extremities. EXTREMITIES: There is no peripheral edema. No clubbing, no cyanosis. Peripheral pulses are intact. - Labs CBC & Chem 7: 10/09/23 05:54 10/09/23 05:54 Labs: Microbiology - Last 24 Hours (Table) 10/05/23 15:30 Blood Culture - Final Blood 10/05/23 15:15 Blood Culture - Final Blood Assessment and Plan Assessment: Acute exacerbation of chronic COPD with secondary shortness of breath. Follow- up chest x-ray reveals elevated left hemidiaphragm or hital hernia versus developing consolidation left base. Procalcitonin 0.03. Antibiotics discontinued Chronic smoker and currently smokes about 5 cigarettes a day Severe COPD, with an FEV1 that is 27% of predicted, currently on Trelegy Ellipta on prednisone 10 mg p.o. daily on outpatient basis Chronic hypoxic respiratory failure the patient has been maintained on oxygen therapy at 4 liters Significant limitation exercise capacity secondary advanced COPD History of coronary artery disease, status post PCI with stent placement, previous stenting of the RCA and mid LAD back in 2020 History of atrial fibrillation, current rhythm is sinus History of deep vein thrombosis, involving left lower extremity History of GI bleed, and gastroesophageal reflux disease, inactive and stable History of hyperlipidemia History of hypertension History of pneumonia History of obstructive sleep apnea syndrome, on home CPAP History of osteoarthritis History of pneumothorax Plan: The patient was seen and evaluated Labs and medications reviewed Continue bronchodilators Complete a prednisone taper Titrate the FiO2 as tolerated Plan is for subacute rehab at [facility] I have personally seen and examined the patient, performed the documentation and the assessment and plan as written. Number of minutes spent on the visit: 10.
== END 2023-10-11 16:22 | DRG 193 ==
LOC: EC 11:06 → 4SSUR 14:46
PROVIDERS: ADMIT Internal Medicine; ATTEND Internal Medicine
DX: J18.9 Pneumonia, unspecified organism (principal); J96.21 Acute and chronic respiratory failure with hypoxia; E87.1 Hypo-osmolality and hyponatremia; J44.0 Chronic obstructive pulmonary disease with (acute) lower respiratory infection; J44.1 Chronic obstructive pulmonary disease with (acute) exacerbation; I10 Essential (primary) hypertension; R26.9 Unspecified abnormalities of gait and mobility; I48.0 Paroxysmal atrial fibrillation; I25.10 Atherosclerotic heart disease of native coronary artery without angina pectoris; G47.33 Obstructive sleep apnea (adult) (pediatric); F17.210 Nicotine dependence, cigarettes, uncomplicated; M19.90 Unspecified osteoarthritis, unspecified site; E78.5 Hyperlipidemia, unspecified; K21.9 Gastro-esophageal reflux disease without esophagitis; Z99.81 Dependence on supplemental oxygen; Z95.5 Presence of coronary angioplasty implant and graft; Z87.01 Personal history of pneumonia (recurrent); Z86.718 Personal history of other venous thrombosis and embolism; Z79.899 Other long term (current) drug therapy; Z79.82 Long term (current) use of aspirin; Z79.52 Long term (current) use of systemic steroids; Z86.14 Personal history of Methicillin resistant Staphylococcus aureus infection; Z71.6 Tobacco abuse counseling
CPT/HCPCS: 36415; 71045; 71046; 80048; 80053; 83605; 83880; 84145; 84484; 85025; 85610; 85730; 87040; 87449; 87636; 93005; 94640; 94760; 96365; 96366; 96375; 99285

== ENCOUNTER 2023-11-15 18:34 | Observation (INO) | payer MEDICARE, OTHER ==
[2023-11-15 19:35] LABS: Basophils % (A) 0 %; Eosinophils # (A) 0.1 k/uL (0-0.7); Eosinophils % (A) 1 %; HCT 42.4 % (39.0-53.0); Lymphocytes % (A) 9 %; MCH 30.6 pg (25.0-35.0); MCHC 33.1 g/dL (31.0-37.0); MCV 92.3 fL (80.0-100.0); Mean Platelet Volume 7.6; Monocytes # (A) 0.8 k/uL (0-1.0); Monocytes % (A) 7 %; Neutrophils # (A) 9.4 k/uL (1.3-7.7); Neutrophils % (A) 82 %; Platelet Count 340 k/uL (150-450); RBC 4.59 m/uL (4.30-5.90); RDW 14.6 % (11.5-15.5); WBC 11.5 k/uL (3.8-10.6)
[2023-11-15 19:36] LABS: INR 0.9 (<1.2); Partial Thromboplastin Time 26.1 sec (22.0-30.0); Prothrombin Time 9.8 sec (10.0-12.5)
[2023-11-15] MEDS: methylPREDNISolone SOD SUCCI 125 MG/2 ML VIAL IV STA (19:54)
[2023-11-15] MEDS: ONDANSETRON 4 MG/2 ML VIAL IVP STA (19:54)
--- NOTE | 2023-11-15 20:10 | XR ---
EXAMINATION TYPE: XR chest 2V DATE OF EXAM: 11/15/2023 7:41 PM CLINICAL INDICATION:Male, 63 years old with history of difficulty breathing; [facility] COMPARISON: Chest radiographs from 10/09/2023 TECHNIQUE: XR chest 2V Frontal view of the chest. FINDINGS: Lungs/Pleura: Prominent interstitial lung markings are seen scattered throughout the lungs with radha ening of the diaphragm and increased lucency of the lung apices. No evidence of focal consolidation, pneumothorax or pleural effusion. Pulmonary vascularity: Unremarkable. Heart/mediastinum: Cardiomediastinal silhouette is unremarkable. Musculoskeletal: No acute osseous pathology. IMPRESSION: 1. No consolidation the left lung base finding felt to represent eventration of the diaphragm. 2. No acute cardiopulmonary disease process. 3. COPD changes.
[2023-11-15] MEDS: IPRATROPIUM-ALBUTEROL 3 ML NEB INHALATION STA ×2 (20:56→22:46)
[2023-11-15 21:16] LABS: ALT 46 U/L (4-49); African American GFR (CKD) >90 (>60 ml/min/1.73 sqM); Anion Gap 7 mmol/L; Blood Urea Nitrogen 9 mg/dL (9-20); Calcium 8.2 mg/dL (8.4-10.2); Carbon Dioxide 30 mmol/L (22-30); Chloride 88 mmol/L (98-107); Glucose 64 mg/dL (74-99); Lipase 123 U/L (23-300); Non-African American GFR(CKD) >90 (>60 ml/min/1.73 sqM); Sodium 125 mmol/L (137-145)
[2023-11-15 21:22] LABS: AST 81 U/L (17-59); Alkaline Phosphatase 82 U/L (38-126); Magnesium 1.8 mg/dL (1.6-2.3); Potassium 4.9 mmol/L (3.5-5.1); Total Protein 6.3 g/dL (6.3-8.2)
[2023-11-15 21:23] LABS: NT-Pro-B-Type Natriuretic Pept 36 pg/mL
[2023-11-15] MEDS ORDERED: LORazepam 2 MG/ML INJ IV PRN ×2 (21:26)
--- NOTE | 2023-11-15 21:57 | ED ---
General Adult HPI - General Chief complaint: Shortness of Breath Stated complaint: AIDE Time Seen by Provider: 11/15/23 19:09 Source: patient, EMS Mode of arrival: EMS Limitations: no limitations - History of Present Illness Initial comments: 63-year-old male with history of COPD, A-fib, CAD, hypertension, hyperlipidemia, alcohol use disorder presenting with chief complaint of shortness of breath. This has been ongoing for about 2 days, patient states that he was getting progressively more short of breath. He admits to a mild cough. No fever congestion or sore throat. Admits to some nausea and vomiting. Patient has a history of alcohol use disorder, he was sober for 8 years and a few weeks ago resumed drinking. He drinks about 12-16 beers per day. He admits to some tightness in the chest. He smokes half pack per day - Related Data Home Medications Medication Instructions Recorded Confirmed Albuterol Sulfate [Ventolin HFA] 2 puff INHALATION RT-Q6H PRN 11/13/14 10/05/23 Metoprolol Tartrate 25 mg PO BID 07/27/15 10/05/23 Albuterol Nebulized [Ventolin 2.5 mg INHALATION RT-TID 12/15/21 10/05/23 Nebulized] Fluticasone/Umeclidin/Vilanter 1 puff INHALATION RT-DAILY 12/15/21 10/05/23 [Trelegy Ellipta 100-62.5-25] Pantoprazole Sodium 20 mg PO DAILY 12/15/21 10/05/23 Ibuprofen 800 mg PO Q8H PRN 12/10/22 10/05/23 Atorvastatin Calcium [Lipitor] 80 mg PO DAILY 06/11/23 10/05/23 Cholecalciferol [Vitamin D3 (25 50 mcg PO DAILY 06/11/23 10/05/23 Mcg = 1000 Iu)] Aspirin EC [Ecotrin Low Dose] 81 mg PO DAILY 10/05/23 10/05/23 Previous Rx's Medication Instructions Recorded ALPRAZolam [Xanax] 0.5 mg PO Q12H PRN #2 tab 10/11/23 Folic Acid 1 mg PO DAILY tab 10/11/23 Gabapentin 600 mg PO TID PRN #6 tab 10/11/23 HYDROcodone/APAP 5-325MG [Tyrone 1 each PO Q6H PRN #2 tab 10/11/23 5-325] Ipratropium-Albuterol Nebulize 3 ml INHALATION QID #360 ml 10/11/23 [Duoneb 0.5 mg-3 mg/3 ml Soln] Ipratropium-Albuterol Nebulize 3 ml INHALATION RT-Q4H PRN each 10/11/23 [Duoneb 0.5 mg-3 mg/3 ml Soln] Multivitamins, Thera [Multivitamin 1 each PO DAILY tab 10/11/23 (formulary)] Thiamine [Vitamin B-1] 100 mg PO DAILY tab 10/11/23 guaiFENesin-DM 600/30MG [Mucinex 2 each PO Q12HR tab 10/11/23 Dm] predniSONE 10 mg PO DIRECTED #30 tab 10/11/23 Allergies Allergy/AdvReac Type Severity Reaction Status Date / Time No Known Allergies Allergy Verified 10/05/23 15:22 Review of Systems ROS Statement: Those systems with pertinent positive or pertinent negative responses have been documented in the HPI. ROS Other: All systems not noted in ROS Statement are negative. Past Medical History Past Medical History: Atrial Fibrillation, Coronary Artery Disease (CAD), COPD, Deep Vein Thrombosis (DVT), GERD/Reflux, GI Bleed, Hyperlipidemia, Hypertension, Osteoarthritis (OA), Pneumonia, Sleep Apnea/CPAP/BIPAP Additional Past Medical History / Comment(s): DVT- LEFT LEG, CPAP, pt uses 3 liters 02 when active and at night with cpap. pt has portable 02 History of Any Multi-Drug Resistant Organisms: MRSA Date of last positivie culture/infection: 03/01/22 MRSA MDRO Source:: Right Axilla Past Surgical History: Heart Catheterization With Stent, Orthopedic Surgery Additional Past Surgical History / Comment(s): ABD AORTOGRAM. Other SX: (construction accident balcony fell from building)HAD CRUSHING INJURY TO ANKLES HAD FUSION DONE JOSE ALBERTO, LT FOOT TOE PARTIAL AMP. CHEST TUBE FOR PNEUMOTHORAX. SURGERY TO REMOVE BLOOD CLOT FROM LEG. Bronchial washings/lavage, EGD. femoral bypass,heart stents x3 Past Anesthesia/Blood Transfusion Reactions: No Reported Reaction Additional Past Anesthesia/Blood Transfusion Reaction / Comment(s): Pt states he has never received blood. Date of Last Stent Placement:: 04/2021 Past Psychological History: No Psychological Hx Reported Smoking Status: Current every day smoker Past Alcohol Use History: None Reported Past Drug Use History: Marijuana - Past Family History Father Family Medical History: Coronary Artery Disease (CAD), Diabetes Mellitus, Myocardial Infarction ([place]), Pulmonary Embolus Additional Family Medical History / Comment(s): PE Mother Family Medical History: CVA/TIA General Exam Limitations: no limitations General appearance: alert, in no apparent distress Head exam: Present: atraumatic, normocephalic Eye exam: Present: normal appearance, EOMI Neck exam: Present: normal inspection. Absent: meningismus Respiratory exam: Present: wheezes, rhonchi. Absent: respiratory distress, rales, stridor Cardiovascular Exam: Present: regular rate, normal rhythm, normal heart sounds. Absent: systolic murmur, diastolic murmur, rubs, gallop, clicks Extremities exam: Present: pedal edema (Does have some swelling around the bilateral ankles.) Neurological exam: Present: alert, oriented X3 Psychiatric exam: Present: normal affect, normal mood Skin exam: Present: warm, dry Course Vital Signs 11/15/23 11/15/23 11/15/23 18:36 18:45 20:56 Temperature 98.7 F Pulse Rate 100 97 Respiratory 20 20 Rate Blood Pressure 133/87 O2 Sat by Pulse 100 Oximetry 11/15/23 11/15/23 11/15/23 21:06 21:27 22:42 Temperature Pulse Rate 107 H 90 10 L Respiratory 20 18 Rate Blood Pressure 108/78 134/77 O2 Sat by Pulse 95 95 Oximetry 11/15/23 11/15/23 22:46 22:57 Temperature Pulse Rate 106 H 105 H Respiratory Rate Blood Pressure O2 Sat by Pulse Oximetry Medical Decision Making - Medical Decision Making Was pt. sent in by a medical professional or institution (, PA, [facility], urgent care, hospital, or longterm...) When possible be specific @ -No Did you speak to anyone other than the patient for history (EMS, parent, family, police, friend...)? What history was obtained from this source @ -No Did you review nursing and triage notes (agree or disagree)? Why? @ -I reviewed and agree with nursing and triage notes Were old charts reviewed (outside hosp., previous admission, EMS record, old EKG, old radiological studies, urgent care reports/EKG's, longterm records)? Report findings @ -No old charts were reviewed Differential Diagnosis (chest pain, altered mental status, abdominal pain women, abdominal pain men, vaginal bleeding, weakness, fever, dyspnea, syncope, headache, dizziness, GI bleed, back pain, seizure, CVA, palpatations, mental health, musculoskeletal)? @ -MDM Differential Dyspnea: Coronary syndrome, arrhythmia, tamponade, asthma, COPD, pulmonary embolism, pneumonia, pneumothorax, pulmonary effusion, anaphylaxis, diabetic ketoacidosis, flailed chest, pulmonary contusion, diaphragmatic rupture, anemia, neuromuscular this is not meant to be an all-inclusive list. EKG interpreted by me (3pts min.). @ -EKG shows sinus rhythm ventricular rate 92. [place] interval 164. QRS 86. QT 340. QTc 390. There is some [place] depression in leads aVF, V3, V4 and V5. X-rays interpreted by me (1pt min.). @ -Chest x-ray shows no consolidation, findings at the left lung base felt to represent eventration of the diaphragm. No acute cardiopulmonary disease process. COPD changes. CT interpreted by me (1pt min.). @ -None done U/S interpreted by me (1pt. min.). @ -None done What testing was considered but not performed or refused? (CT, X-rays, U/S, labs)? Why? @ -None What meds were considered but not given or refused? Why? @ -None Did you discuss the management of the patient with other professionals (professionals i.e. , PA, [facility], lab, RT, psych nurse, medical social worker, ukrainian folk arts instructor, teacher, protocol officer, case hardener)? Give summary @ -I spoke with Dr. Alebrt who accepted admission Was smoking cessation discussed for >3mins.? @ -No Was critical care preformed (if so, how long)? @ -No Were there social determinants of health that impacted care today? How? (Homelessness, low income, unemployed, alcoholism, drug addiction, transportation, low edu. Level, literacy, decrease access to med. care, fpc, rehab)? @ -Alcohol use disorder Was there de-escalation of care discussed even if they declined (Discuss DNR or withdrawal of care, Hospice)? DNR status @ -No What co-morbidities impacted this encounter? (DM, HTN, Smoking, COPD, CAD, Cancer, CVA, ARF, Chemo, Hep., AIDS, mental health diagnosis, sleep apnea, morbid obesity)? @ -COPD, smoker Was patient admitted / discharged? Hospital course, mention meds given and route, prescriptions, significant lab abnormalities, going to OR and other pertinent info. @ -63-year-old male presenting with chief complaint of dyspnea. History of COPD. Patient was previously sober and a few weeks ago started drinking again. 12-16 beers per day. On physical exam wheezes and rhonchi are heard diffusely. Patient is given Solu-Medrol 125 mg and DuoNeb. WBC 11.5. Negative for influenza, RSV, COVID. EKG shows some [place] depression, negative troponin. BNP is WNL. Chest x-ray shows COPD changes with no evidence of consolidation. 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 Patient was given a 500 mL bolus and started on maintenance rate of 50 mL/h normal saline. Hypoglycemia, patient is given 1 amp of D50, recheck is 235. Patient will be admitted for COPD exacerbation and anticipated alcohol withdrawal. He is placed on CIWA protocol. He is agreeable with this plan. I discussed this case with my attending Dr. Pressley. Undiagnosed new problem with uncertain prognosis? @ -No Drug Therapy requiring intensive monitoring for toxicity (Heparin, Nitro, Insulin, Cardizem)? @ -No Were any procedures done? @ -No Diagnosis/symptom? @ -COPD exacerbation Acute, or Chronic, or Acute on Chronic? @ -Acute Uncomplicated (without systemic symptoms) or Complicated (systemic symptoms)? @ -Complicated Side effects of treatment? @ -No Exacerbation, Progression, or Severe Exacerbation? @ -Exacerbation Poses a threat to life or bodily function? How? (Chest pain, [place], [place], pneumonia, PE, COPD, DKA, ARF, appy, cholecystitis, CVA, Diverticulitis, Homicidal, Suicidal, threat to staff... and all critical care pts) @ -Yes Diagnosis/symptom? @Beer potomania syndrome Acute, or Chronic, or Acute on Chronic? @Acute Uncomplicated (without systemic symptoms) or Complicated (systemic symptoms)? @Complicated Side effects of treatment? @None Exacerbation, Progression, or Severe Exacerbation] @No Poses a threat to life or bodily function? @Yes - Lab Data Result diagrams: 11/15/23 19:00 11/15/23 20:30 Lab Results 11/15/23 11/15/23 11/15/23 Range/Units 19:00 19:00 19:00 WBC 11.5 H (3.8-10.6) k/uL RBC 4.59 (4.30-5.90) m/uL Hgb 14.0 (13.0-17.5) gm/dL Hct 42.4 (39.0-53.0) % MCV 92.3 (80.0-100.0) fL MCH 30.6 (25.0-35.0) pg MCHC 33.1 (31.0-37.0) g/dL RDW 14.6 (11.5-15.5) % Plt Count 340 (150-450) k/uL MPV 7.6 Neutrophils % 82 % Lymphocytes % 9 % Monocytes % 7 % Eosinophils % 1 % Basophils % 0 % Neutrophils # 9.4 H (1.3-7.7) k/uL Lymphocytes # 1.0 (1.0-4.8) k/uL Monocytes # 0.8 (0-1.0) k/uL Eosinophils # 0.1 (0-0.7) k/uL Basophils # 0.0 (0-0.2) k/uL Manual Slide Review Performed PT 9.8 L (10.0-12.5) sec INR 0.9 (<1.2) APTT 26.1 (22.0-30.0) sec Sodium (137-145) mmol/L Potassium (3.5-5.1) mmol/L Chloride (98-107) mmol/L Carbon Dioxide (22-30) mmol/L Anion Gap mmol/L BUN (9-20) mg/dL Creatinine (0.66-1.25) mg/dL Est GFR (CKD-EPI)AfAm (>60 ml/min/1.73 sqM) Est GFR (CKD-EPI)NonAf (>60 ml/min/1.73 sqM) Glucose (74-99) mg/dL POC Glucose (mg/dL) (70-110) mg/dL POC Glu Advertising Manager ID Calcium (8.4-10.2) mg/dL Magnesium (1.6-2.3) mg/dL Total Bilirubin (0.2-1.3) mg/dL AST (17-59) U/L ALT (4-49) U/L Alkaline Phosphatase (38-126) U/L Troponin I <0.012 (0.000-0.034) ng/mL NT-Pro-B Natriuret Pep pg/mL Total Protein (6.3-8.2) g/dL Albumin (3.5-5.0) g/dL Lipase (23-300) U/L Influenza Type A (PCR) (Not Detectd) Influenza Type B (PCR) (Not Detectd) RSV (PCR) (Not Detectd) SARS-CoV-2 (PCR) (Not Detectd) 11/15/23 11/15/23 11/15/23 Range/Units 19:40 20:30 22:44 WBC (3.8-10.6) k/uL RBC (4.30-5.90) m/uL Hgb (13.0-17.5) gm/dL Hct (39.0-53.0) % MCV (80.0-100.0) fL MCH (25.0-35.0) pg MCHC (31.0-37.0) g/dL RDW (11.5-15.5) % Plt Count (150-450) k/uL MPV Neutrophils % % Lymphocytes % % Monocytes % % Eosinophils % % Basophils % % Neutrophils # (1.3-7.7) k/uL Lymphocytes # (1.0-4.8) k/uL Monocytes # (0-1.0) k/uL Eosinophils # (0-0.7) k/uL Basophils # (0-0.2) k/uL Manual Slide Review PT (10.0-12.5) sec INR (<1.2) APTT (22.0-30.0) sec Sodium 125 L (137-145) mmol/L Potassium 4.9 (3.5-5.1) mmol/L Chloride 88 L (98-107) mmol/L Carbon Dioxide 30 (22-30) mmol/L Anion Gap 7 mmol/L BUN 9 (9-20) mg/dL Creatinine 0.32 L (0.66-1.25) mg/dL Est GFR (CKD-EPI)AfAm >90 (>60 ml/min/1.73 sqM) Est GFR (CKD-EPI)NonAf >90 (>60 ml/min/1.73 sqM) Glucose 64 L (74-99) mg/dL POC Glucose (mg/dL) 235 H (70-110) mg/dL POC Glu Advertising Manager ID Paolo hilliard Calcium 8.2 L (8.4-10.2) mg/dL Magnesium 1.8 (1.6-2.3) mg/dL Total Bilirubin 1.0 (0.2-1.3) mg/dL AST 81 H (17-59) U/L ALT 46 (4-49) U/L Alkaline Phosphatase 82 (38-126) U/L Troponin I (0.000-0.034) ng/mL NT-Pro-B Natriuret Pep 36 pg/mL Total Protein 6.3 (6.3-8.2) g/dL Albumin 4.0 (3.5-5.0) g/dL Lipase 123 (23-300) U/L Influenza Type A (PCR) Not Detected (Not Detectd) Influenza Type B (PCR) Not Detected (Not Detectd) RSV (PCR) Not Detected (Not Detectd) SARS-CoV-2 (PCR) Not Detected (Not Detectd) Disposition Clinical Impression: COPD exacerbation, Hyponatremia, Hypochloremia Disposition: ADMITTED IP TO THIS HOSP Condition: Fair Time of Disposition: 22:29
[2023-11-15] MEDS ORDERED: NALOXONE 0.4 MG/ML 1 ML VIAL IV PRN (22:02)
[2023-11-15] MEDS ORDERED: IPRATROPIUM-ALBUTEROL 3 ML NEB INHALATION PRN (22:05)
[2023-11-15] MEDS: DEXTROSE 50% SYRINGE 50 ML IVP STA (22:11)
[2023-11-15] MEDS: SODIUM CHLORIDE 0.9% 500 ML 500 ML IV ONE (22:15)
[2023-11-15] MEDS: SODIUM CHLORIDE 0.9% 1,000 ML IV SCH (22:42)
[2023-11-15 22:45] LABS: Glucose,Whole Blood 235 mg/dL (70-110)
[2023-11-16] MEDS: LORazepam 2 MG/ML INJ IV PRN (00:04)
[2023-11-16] MEDS: DEXTROSE 5%-0.45% NACL 1,000 ML IV SCH (00:30)
[2023-11-16] MEDS: SODIUM CHLORIDE 0.9% 1,000 ML IV SCH (00:30)
[2023-11-16 05:34] LABS: Basophils % (A) 0 %; Eosinophils % (A) 0 %; HCT 45.1 % (39.0-53.0); HGB 13.8 gm/dL (13.0-17.5); Lymphocytes # (A) 0.3 k/uL (1.0-4.8); Lymphocytes % (A) 7 %; MCH 29.5 pg (25.0-35.0); MCHC 30.6 g/dL (31.0-37.0); MCV 96.3 fL (80.0-100.0); Monocytes # (A) 0.1 k/uL (0-1.0); Monocytes % (A) 2 %; Neutrophils # (A) 3.3 k/uL (1.3-7.7); Neutrophils % (A) 90 %; Platelet Count 283 k/uL (150-450); RBC 4.69 m/uL (4.30-5.90); RDW 14.3 % (11.5-15.5); WBC 3.7 k/uL (3.8-10.6)
[2023-11-16 05:51] LABS: Chloride 90 mmol/L (98-107)
[2023-11-16 05:54] LABS: ALT 43 U/L (4-49); AST 67 U/L (17-59); African American GFR (CKD) >90 (>60 ml/min/1.73 sqM); Blood Urea Nitrogen 7 mg/dL (9-20); Carbon Dioxide 37 mmol/L (22-30); Glucose 109 mg/dL (74-99); Non-African American GFR(CKD) >90 (>60 ml/min/1.73 sqM); Total Bilirubin 0.8 mg/dL (0.2-1.3); Total Protein 6.3 g/dL (6.3-8.2)
[2023-11-16 05:55] LABS: Alkaline Phosphatase 91 U/L (38-126); Anion Gap 2 mmol/L; Calcium 8.7 mg/dL (8.4-10.2); Potassium 5.6 mmol/L (3.5-5.1); Sodium 129 mmol/L (137-145)
[2023-11-16] MEDS: IPRATROPIUM-ALBUTEROL 3 ML NEB INHALATION SCH (08:25)
[2023-11-16] MEDS ORDERED: NITROGLYCERIN SL TABS 0.4 MG TAB SUBLINGUAL PRN (08:35)
[2023-11-16] MEDS: ASPIRIN 81 MG PO STA (08:42)
[2023-11-16] MEDS ORDERED: METOPROLOL SUCCINATE (ER) 25 MG TAB.ER.24H PO SCH (09:30)
--- NOTE | 2023-11-16 09:44 | P.CRDCN ---
History of Present Illness Consult date: 11/16/23 History of present illness: HISTORY OF PRESENTING ILLNESS 63-year-old presented to the hospital because of increased shortness of breath and chest pressure symptoms. He reports that he relapsed and has started drinking and smoking again. He was 1 month ago hospitalized for acute COPD exacerbation. He was discharged to [facility]. He has prior history of CAD known to Dr. Magaña. Last PCI in 2020 to mid LAD. Last heart catheter in 2022 showed patent stents in RCA and LAD with mild disease in OM. Patient reports that he has been compliant with aspirin and Lipitor. ECG shows normal sinus rhythm, heart rate 92 bpm First troponin is negative, WBC 11.5, sodium 125, potassium 4.9, creatinine 0.3, BNP 36 REVIEW OF SYSTEMS 14 point review of system is negative except what is mentioned above in HPI. PHYSICAL EXAMINATION Vital signs reviewed. Head: Normocephalic. Eyes: Sclerae nonicteric. Neck: Brisk carotid upstroke, no jugular venous distention. Lungs: Clear to auscultation. Heart: Regular rate and rhythm, S1-S2, no S3, no murmur or rub. Abdomen: Soft nontender, positive bowel sounds. Extremities: No edema, intact distal pulses. Neuro: Alert, oritented, no focal deficits. Detailed neuro exam was not performed. ASSESSMENT Substernal chest pressure. Acute hypoxic respiratory failure with acute COPD exacerbation Alcohol abuse, currently going through withdrawal Electrolyte abnormality, likely due to alcohol use and poor oral intake. Hyponatremia hyperkalemia Prior history of CAD s/p PCI to LAD and RCA. Last PCI in 2020. Last heart cath in 2022 showed patent stents and mild OM disease PLAN Repeat troponin levels. Trend 2 more levels to see if there is any uptrending pattern Obtain an echocardiogram to look for LV systolic function and any pulmonary hypertension Resume aspirin, atorvastatin, metoprolol 25 mg twice daily Add Imdur 15 mg daily for intensification of antianginal therapy Patient is currently in COPD exacerbation with severe wheezing. I added Pulmicort. Patient has hyponatremia, hyperkalemia. Electrolyte abnormalities most likely due to alcohol use. Currently in alcohol withdrawal. Monitor electrolytes There is questionable history of DVT and atrial fibrillation. I have not been able to find any clinical documentation of atrial fibrillation or DVT in the hospital chart. On Saturday would obtain clinic records to see if patient really needs systemic anticoagulation. David Ibarra, MD, FAC, RPVI Thank you for allowing [facility] to participate in this patient's care. Feel free to reach out in case of any followup questions. Past Medical History Past Medical History: Atrial Fibrillation, Coronary Artery Disease (CAD), COPD, Deep Vein Thrombosis (DVT), GERD/Reflux, GI Bleed, Hyperlipidemia, Hypertension, Osteoarthritis (OA), Pneumonia, Sleep Apnea/CPAP/BIPAP Additional Past Medical History / Comment(s): DVT- LEFT LEG, CPAP, pt uses 3 liters 02 when active and at night with cpap. pt has portable 02 History of Any Multi-Drug Resistant Organisms: MRSA Date of last positivie culture/infection: 03/01/22 MRSA MDRO Source:: Right Axilla Past Surgical History: Heart Catheterization With Stent, Orthopedic Surgery Additional Past Surgical History / Comment(s): ABD AORTOGRAM. Other SX: (construction accident balcony fell from building)HAD CRUSHING INJURY TO ANKLES HAD FUSION DONE JOSE ALBERTO, LT FOOT TOE PARTIAL AMP. CHEST TUBE FOR PNEUMOTHORAX. SURGERY TO REMOVE BLOOD CLOT FROM LEG. Bronchial washings/lavage, EGD. femoral bypass,heart stents x3 Past Anesthesia/Blood Transfusion Reactions: No Reported Reaction Additional Past Anesthesia/Blood Transfusion Reaction / Comment(s): Pt states he has never received blood. Date of Last Stent Placement:: 04/2021 Past Psychological History: No Psychological Hx Reported Smoking Status: Current every day smoker Past Alcohol Use History: None Reported Past Drug Use History: Marijuana - Past Family History Father Family Medical History: Coronary Artery Disease (CAD), Diabetes Mellitus, Myocardial Infarction ([place]), Pulmonary Embolus Additional Family Medical History / Comment(s): PE Mother Family Medical History: CVA/TIA Medications and Allergies Home Medications Medication Instructions Recorded Confirmed Type Albuterol Sulfate [Ventolin HFA] 2 puff INHALATION RT-Q6H PRN 11/13/14 10/05/23 History Metoprolol Tartrate 25 mg PO BID 07/27/15 10/05/23 History Albuterol Nebulized [Ventolin 2.5 mg INHALATION RT-TID 12/15/21 10/05/23 History Nebulized] Fluticasone/Umeclidin/Vilanter 1 puff INHALATION RT-DAILY 12/15/21 10/05/23 History [Ubaldoleangel Ellipta 100-62.5-25] Pantoprazole Sodium 20 mg PO DAILY 12/15/21 10/05/23 History Ibuprofen 800 mg PO Q8H PRN 12/10/22 10/05/23 History Atorvastatin Calcium [Lipitor] 80 mg PO DAILY 06/11/23 10/05/23 History Cholecalciferol [Vitamin D3 (25 50 mcg PO DAILY 06/11/23 10/05/23 History Mcg = 1000 Iu)] Aspirin EC [Ecotrin Low Dose] 81 mg PO DAILY 10/05/23 10/05/23 History ALPRAZolam [Xanax] 0.5 mg PO Q12H PRN #2 tab 10/11/23 Rx Folic Acid 1 mg PO DAILY tab 10/11/23 Rx Gabapentin 600 mg PO TID PRN #6 tab 10/11/23 Rx HYDROcodone/APAP 5-325MG [[employer] 1 each PO Q6H PRN #2 tab 10/11/23 Rx 5-325] Ipratropium-Albuterol Nebulize 3 ml INHALATION QID #360 ml 10/11/23 Rx [Duoneb 0.5 mg-3 mg/3 ml Soln] Ipratropium-Albuterol Nebulize 3 ml INHALATION RT-Q4H PRN each 10/11/23 Rx [Duoneb 0.5 mg-3 mg/3 ml Soln] Multivitamins, Thera [Multivitamin 1 each PO DAILY tab 10/11/23 Rx (formulary)] Thiamine [Vitamin B-1] 100 mg PO DAILY tab 10/11/23 Rx guaiFENesin-DM 600/30MG [Mucinex 2 each PO Q12HR tab 10/11/23 Rx Dm] predniSONE 10 mg PO DIRECTED #30 tab 10/11/23 Rx Allergies Allergy/AdvReac Type Severity Reaction Status Date / Time No Known Allergies Allergy Verified 10/05/23 15:22 Physical Exam Vitals: Vital Signs Temp Pulse Pulse Resp BP BP Pulse Ox 11/16/23 08:35 96 11/16/23 08:25 97 98 11/16/23 07:00 97.9 F 98 146/90 99 11/16/23 00:06 98.3 F 110 H 15 148/88 94 L 11/15/23 23:24 110 H 18 134/80 97 11/15/23 22:57 105 H 11/15/23 22:46 106 H 11/15/23 22:42 10 L 18 134/77 95 11/15/23 21:27 90 20 108/78 95 11/15/23 21:06 107 H 11/15/23 20:56 97 11/15/23 18:45 20 11/15/23 18:36 98.7 F 100 20 133/87 100 Intake and Output 11/15/23 11/16/23 11/16/23 22:59 06:59 14:59 Output Total 1100 Balance -1100 Output: Urine 1100 Other: Voiding Method Toilet Weight 54.431 kg 54.431 kg Results 11/16/23 05:18 11/16/23 05:18 Cardiac Enzymes 11/15/23 11/15/23 11/16/23 Range/Units 19:00 20:30 05:18 AST 81 H 67 H (17-59) U/L Troponin I <0.012 (0.000-0.034) ng/mL Coagulation 11/15/23 Range/Units 19:00 PT 9.8 L (10.0-12.5) sec APTT 26.1 (22.0-30.0) sec CBC 11/15/23 11/16/23 Range/Units 19:00 05:18 WBC 11.5 H 3.7 L (3.8-10.6) k/uL RBC 4.59 4.69 (4.30-5.90) m/uL Hgb 14.0 13.8 (13.0-17.5) gm/dL Hct 42.4 45.1 (39.0-53.0) % Plt Count 340 283 (150-450) k/uL Comprehensive Metabolic Panel 11/15/23 11/16/23 Range/Units 20:30 05:18 Sodium 125 L 129 L (137-145) mmol/L Potassium 4.9 5.6 H (3.5-5.1) mmol/L Chloride 88 L 90 L (98-107) mmol/L Carbon Dioxide 30 37 H (22-30) mmol/L BUN 9 7 L (9-20) mg/dL Creatinine 0.32 L 0.38 L (0.66-1.25) mg/dL Glucose 64 L 109 H (74-99) mg/dL Calcium 8.2 L 8.7 (8.4-10.2) mg/dL AST 81 H 67 H (17-59) U/L ALT 46 43 (4-49) U/L Alkaline Phosphatase 82 91 (38-126) U/L Total Protein 6.3 6.3 (6.3-8.2) g/dL Albumin 4.0 4.0 (3.5-5.0) g/dL Current Medications Generic Name Dose Route Start Last Admin Trade Name Freq PRN Reason Stop Dose Admin Albuterol/Ipratropium 3 ml 11/15/23 22:05 Ipratropium-Albuterol 3 Ml Neb INHALATION RT-Q2H PRN Shortness Of Breath Or Wheezing Albuterol/Ipratropium 3 ml 11/16/23 08:00 11/16/23 08:25 Ipratropium-Albuterol 3 Ml Neb INHALATION 3 ml RT-QID PRIYANKA Administration Atorvastatin Calcium 40 mg 11/16/23 21:00 Atorvastatin 40 Mg Tab PO HS PRIYANKA Budesonide 0.25 mg 11/16/23 20:00 Budesonide 0.25 Mg/2 Ml Nebu INHALATION 11/17/23 20:01 RT-BID PRIYANKA Sodium Chloride 1,000 mls @ 50 mls/hr 11/15/23 22:30 11/15/23 22:42 Saline 0.9% IV 50 mls/hr .Q20H PRIYANKA Administration Isosorbide Mononitrate 15 mg 11/16/23 10:00 Isosorbide Mononitrate Er 15 Mg Tab PO DAILY PRIYANKA Lorazepam 1 mg 11/15/23 21:26 Lorazepam 2 Mg/Ml Inj IV Q1HR PRN CIWA 10 to 15 Lorazepam 1 mg 11/15/23 21:26 11/16/23 08:08 Lorazepam 2 Mg/Ml Inj IV 1 mg Q2HR PRN Administration CIWA 8 or 9 Lorazepam 2 mg 11/15/23 21:26 Lorazepam 2 Mg/Ml Inj IV 11/17/23 21:26 Q10M PRN CIWA 16 or higher Metoprolol Tartrate 25 mg 11/16/23 09:30 Metoprolol Tartrate 25 Mg Tab PO BID PRIYANKA Naloxone HCl 0.2 mg 11/15/23 22:02 Naloxone 0.4 Mg/Ml 1 Ml Vial IV Q2M PRN Opioid Reversal Nitroglycerin 0.4 mg 11/16/23 08:35 Nitroglycerin Sl Tabs 0.4 Mg Tab SUBLINGUAL Q5M PRN Chest Pain Ondansetron HCl 4 mg 11/15/23 22:02 Ondansetron 4 Mg/2 Ml Vial IVP Q8HR PRN Nausea And Vomiting Intake and Output 11/15/23 11/16/23 11/16/23 22:59 06:59 14:59 Output Total 1100 Balance -1100 Output: Urine 1100 Other: Voiding Method Toilet Weight 54.431 kg 54.431 kg 11/16/23 05:18 11/16/23 05:18
[2023-11-16] MEDS: methylPREDNISolone SOD SUCCI 40 MG/ML 1 ML VIAL IV SCH (10:24)
[2023-11-16] MEDS: SODIUM ZIRCONIUM CYCLOSILICATE 10 GM PACKET PO ONE (10:24)
[2023-11-16] MEDS: METOPROLOL TARTRATE 25 MG TAB PO SCH (10:24)
[2023-11-16] MEDS: ISOSORBIDE MONONITRATE ER 15 MG TAB PO SCH (10:25)
[2023-11-16] MEDS: THIAMINE 100 MG TAB PO SCH (10:25)
[2023-11-16 11:33] VITALS: BMI 17.2
[2023-11-16] MEDS: chlordiazePOXIDE 25 MG CAP PO SCH (12:44)
--- NOTE | 2023-11-16 13:15 | P.CNPUL ---
History of Present Illness Consult date: 11/16/23 Reason for consult: dyspnea History of present illness: 11/16/2023, the patient is being seen in consultation for shortness of breath and chest pain. The patient is well and well-known to me. The patient has history of advanced COPD and the patient is oxygen dependent. The patient was in the hospital and he was discharged from the hospital on 10/11/2023 after being treated for skilled exacerbation. The patient is known to have advanced COPD with an FEV1 27% predicted, maintained on Trelegy Ellipta and prednisone maintenance dose of 10 mg p.o. daily. He is known to have chronic hypoxic raad failure on 4 L of oxygen by nasal cannula and he is significant and patient exercise capacity. He is also known to have CAD with previous coronary stenting of the RCA and mid LAD back in 2020, chronic A-fib, paroxysmal in nature along with previous history of DVT of the left lower extremity, hypertension hyperlipidemia obstructive sleep apnea and previous history of pneumothorax. The patient is also a chronic smoker and continues to smoke 1 pack of cigarettes a day and drinking around 12 pack beer on a daily basis. He came into the [facility] because of chest pain shortness of breath. Cardiac enzymes are negative. Troponins are negative. proBNP level is at 36 and the patient had a chest x-ray that was consistent with COPD. No evidence of any airspace disease or consolidation. He is shaking his withdrawing from alcoholism at this point in time. He is up on his O2 nasal cannula with a +98%. The white cell count of 3.7 and the platelet count is 283. Rest of electrolytes show sodium level 129, potassium level of 5.6, BUN 7 with a creatinine of 0.38. Cardiology has been consulted. The patient is on Perforomist and Pulmicort nebulized treatments twice daily, DuoNeb updrafts and IV Solu-Medrol. Librium and Ativan was also added for DT treatment. Review of Systems Constitutional: Patient denies any fever or chills . No generalized weakness or weight loss. Abdomen: Patient denied nausea vomiting and diarrhea and abdominal pain. Cardiovascular: Patient denies any chest pain or short of breath no palpitations. Respiratory: Patient does have cough with sputum production a lowish. Shortness of breath. Neurologic: Patient denied any numbness or tingling headache. Patient is very shaky and is withdrawing from alcoholism. Musculoskeletal: Patient denies any complaints of joint swelling or deformity. Skin: Negative Psychiatric: Negative Endocrine: No heat or cold intolerance. No recent weight gain. Genitourinary: No dysuria or hematuria. All other 14 point ROS negative except the above Past Medical History Past Medical History: Atrial Fibrillation, Coronary Artery Disease (CAD), COPD, Deep Vein Thrombosis (DVT), GERD/Reflux, GI Bleed, Hyperlipidemia, Hypertension, Osteoarthritis (OA), Pneumonia, Sleep Apnea/CPAP/BIPAP Additional Past Medical History / Comment(s): DVT- LEFT LEG, CPAP, pt uses 3 liters 02 when active and at night with cpap. pt has portable 02 History of Any Multi-Drug Resistant Organisms: MRSA Date of last positivie culture/infection: 03/01/22 MRSA MDRO Source:: Right Axilla Past Surgical History: Heart Catheterization With Stent, Orthopedic Surgery Additional Past Surgical History / Comment(s): ABD AORTOGRAM. Other SX: (construction accident balcony fell from building)HAD CRUSHING INJURY TO ANKLES HAD FUSION DONE JOSE ALBERTO, LT FOOT TOE PARTIAL AMP. CHEST TUBE FOR PNEUMOTHORAX. SURGERY TO REMOVE BLOOD CLOT FROM LEG. Bronchial washings/lavage, EGD. femoral bypass,heart stents x3 Past Anesthesia/Blood Transfusion Reactions: No Reported Reaction Additional Past Anesthesia/Blood Transfusion Reaction / Comment(s): Pt states he has never received blood. Date of Last Stent Placement:: 04/2021 Past Psychological History: No Psychological Hx Reported Smoking Status: Current every day smoker Past Alcohol Use History: None Reported Past Drug Use History: Marijuana - Past Family History Father Family Medical History: Coronary Artery Disease (CAD), Diabetes Mellitus, Myocardial Infarction ([place]), Pulmonary Embolus Additional Family Medical History / Comment(s): PE Mother Family Medical History: CVA/TIA Medications and Allergies Home Medications Medication Instructions Recorded Confirmed Type Albuterol Sulfate [Ventolin HFA] 2 puff INHALATION RT-Q6H PRN 11/13/14 11/16/23 History Metoprolol Tartrate 25 mg PO BID 07/27/15 11/16/23 History Albuterol Nebulized [Ventolin 2.5 mg INHALATION RT-TID 12/15/21 11/16/23 History Nebulized] Fluticasone/Umeclidin/Vilanter 1 puff INHALATION RT-DAILY 12/15/21 11/16/23 History [Ivan Higuerata 100-62.5-25] Pantoprazole Sodium 20 mg PO DAILY 12/15/21 11/16/23 History Ibuprofen 800 mg PO Q8H PRN 12/10/22 11/16/23 History Atorvastatin Calcium [Lipitor] 80 mg PO HS 06/11/23 11/16/23 History Cholecalciferol [Vitamin D3 (25 50 mcg PO DAILY 06/11/23 11/16/23 History Mcg = 1000 Iu)] Aspirin EC [Ecotrin Low Dose] 81 mg PO DAILY 10/05/23 11/16/23 History ALPRAZolam [Xanax] 0.5 mg PO Q12H PRN #2 tab 10/11/23 11/16/23 Rx Folic Acid 1 mg PO DAILY tab 10/11/23 11/16/23 Rx Ipratropium-Albuterol Nebulize 3 ml INHALATION RT-Q4H PRN each 10/11/23 11/16/23 Rx [Duoneb 0.5 mg-3 mg/3 ml Soln] Thiamine [Vitamin B-1] 100 mg PO DAILY tab 10/11/23 11/16/23 Rx guaiFENesin-DM 600/30MG [Mucinex 2 each PO Q12HR tab 10/11/23 11/16/23 Rx Dm] Gabapentin 600 mg PO TID PRN 11/16/23 11/16/23 History HYDROcodone/APAP 5-325MG [[place] 1 tab PO Q6H PRN 11/16/23 11/16/23 History 5-325] Ipratropium-Albuterol Nebulize 3 ml INHALATION RT-QID 11/16/23 11/16/23 History [Duoneb 0.5 mg-3 mg/3 ml Soln] Multivitamins, Thera [Multivitamin 1 tab PO DAILY 11/16/23 11/16/23 History (formulary)] hydrOXYzine HCL [Atarax] 10 mg PO TID PRN 11/16/23 11/16/23 History predniSONE 10 mg PO DAILY 11/16/23 11/16/23 History Allergies Allergy/AdvReac Type Severity Reaction Status Date / Time No Known Allergies Allergy Verified 11/16/23 11:31 Physical Exam Vitals: Vital Signs Temp Pulse Pulse Resp BP BP Pulse Ox 11/16/23 11:54 96 11/16/23 11:46 92 11/16/23 08:35 96 11/16/23 08:25 97 98 11/16/23 07:00 97.9 F 98 146/90 99 11/16/23 00:06 98.3 F 110 H 15 148/88 94 L 11/15/23 23:24 110 H 18 134/80 97 11/15/23 22:57 105 H 11/15/23 22:46 106 H 11/15/23 22:42 10 L 18 134/77 95 11/15/23 21:27 90 20 108/78 95 11/15/23 21:06 107 H 11/15/23 20:56 97 11/15/23 18:45 20 11/15/23 18:36 98.7 F 100 20 133/87 100 Intake and Output 11/15/23 11/16/23 11/16/23 22:59 06:59 14:59 Intake Total 118 Output Total 1100 Balance -982 Intake: Oral 118 Output: Urine 1100 Other: Voiding Method Toilet # Voids 1 # Bowel Movements 1 Weight 54.431 kg 54.431 kg 54.431 kg GENERAL EXAM: Alert, pleasant 62-year-old male patient, on 4 L nasal cannula, breathing is slightly labored HEAD: Normocephalic. EYES: Normal reaction of pupils, equal size. NOSE: Clear with pink turbinates. THROAT: No erythema or exudates. NECK: No masses, no JVD. CHEST: No chest wall deformity. LUNGS: Diminished but equal air entry with bilateral end expiratory wheeze, diminished. Breath sounds are mildly diminished in all 4 extremities. Chest wall is also sore. CVS: S1 and S2 normal with no audible murmur, regular rhythm. ABDOMEN: No hepatosplenomegaly, normal bowel sounds, no guarding or rigidity. SPINE: No scoliosis or deformity SKIN: No rashes CENTRAL NERVOUS SYSTEM: No focal deficits, tone is normal in all 4 extremities. Shaking and tremoring related to alcohol withdrawal. EXTREMITIES: There is no peripheral edema. No clubbing, no cyanosis. Peripheral pulses are intact. 5 Results - Laboratory Findings CBC and BMP: 11/16/23 05:18 11/16/23 05:18 ABG WBC 3.7 k/uL (3.8-10.6) L 11/16/23 05:18 RBC 4.69 m/uL (4.30-5.90) 11/16/23 05:18 Hgb 13.8 gm/dL (13.0-17.5) 11/16/23 05:18 Hct 45.1 % (39.0-53.0) 11/16/23 05:18 MCV 96.3 fL (80.0-100.0) 11/16/23 05:18 MCH 29.5 pg (25.0-35.0) 11/16/23 05:18 MCHC 30.6 g/dL (31.0-37.0) L 11/16/23 05:18 RDW 14.3 % (11.5-15.5) 11/16/23 05:18 Plt Count 283 k/uL (150-450) 11/16/23 05:18 MPV 7.0 11/16/23 05:18 Neutrophils % 90 % 11/16/23 05:18 Lymphocytes % 7 % 11/16/23 05:18 Monocytes % 2 % 11/16/23 05:18 Eosinophils % 0 % 11/16/23 05:18 Basophils % 0 % 11/16/23 05:18 Neutrophils # 3.3 k/uL (1.3-7.7) 11/16/23 05:18 Lymphocytes # 0.3 k/uL (1.0-4.8) L 11/16/23 05:18 Monocytes # 0.1 k/uL (0-1.0) 11/16/23 05:18 Eosinophils # 0.0 k/uL (0-0.7) 11/16/23 05:18 Basophils # 0.0 k/uL (0-0.2) 11/16/23 05:18 Manual Slide Review Performed 11/15/23 19:00 PT 9.8 sec (10.0-12.5) L 11/15/23 19:00 INR 0.9 (<1.2) 11/15/23 19:00 APTT 26.1 sec (22.0-30.0) 11/15/23 19:00 D-Dimer 1.37 mg/L FEU (<0.60) H 11/16/23 10:55 Sodium 129 mmol/L (137-145) L 11/16/23 05:18 Potassium 5.6 mmol/L (3.5-5.1) H 11/16/23 05:18 Chloride 90 mmol/L (98-107) L 11/16/23 05:18 Carbon Dioxide 37 mmol/L (22-30) H 11/16/23 05:18 Anion Gap 2 mmol/L 11/16/23 05:18 BUN 7 mg/dL (9-20) L 11/16/23 05:18 Creatinine 0.38 mg/dL (0.66-1.25) L 11/16/23 05:18 Est GFR (CKD-EPI)AfAm >90 (>60 ml/min/1.73 sqM) 11/16/23 05:18 Est GFR (CKD-EPI)NonAf >90 (>60 ml/min/1.73 sqM) 11/16/23 05:18 Glucose 109 mg/dL (74-99) H 11/16/23 05:18 POC Glucose (mg/dL) 235 mg/dL (70-110) H 11/15/23 22:44 POC Glu Liner Replacer ID Paolo hilliard 11/15/23 22:44 Calcium 8.7 mg/dL (8.4-10.2) 11/16/23 05:18 Magnesium 1.8 mg/dL (1.6-2.3) 11/15/23 20:30 Total Bilirubin 0.8 mg/dL (0.2-1.3) 11/16/23 05:18 AST 67 U/L (17-59) H 11/16/23 05:18 ALT 43 U/L (4-49) 11/16/23 05:18 Alkaline Phosphatase 91 U/L (38-126) 11/16/23 05:18 Troponin I <0.012 ng/mL (0.000-0.034) 11/16/23 10:55 NT-Pro-B Natriuret Pep 36 pg/mL 11/15/23 20:30 Total Protein 6.3 g/dL (6.3-8.2) 11/16/23 05:18 Albumin 4.0 g/dL (3.5-5.0) 11/16/23 05:18 Lipase 123 U/L (23-300) 11/15/23 20:30 Influenza Type A (PCR) Not Detected (Not Detectd) 11/15/23 19:40 Influenza Type B (PCR) Not Detected (Not Detectd) 11/15/23 19:40 RSV (PCR) Not Detected (Not Detectd) 11/15/23 19:40 SARS-CoV-2 (PCR) Not Detected (Not Detectd) 11/15/23 19:40 PT/INR, D-dimer PT 9.8 sec (10.0-12.5) L 11/15/23 19:00 INR 0.9 (<1.2) 11/15/23 19:00 D-Dimer 1.37 mg/L FEU (<0.60) H 11/16/23 10:55 Abnormal lab findings: Abnormal Labs 11/15/23 11/15/23 11/15/23 19:00 19:00 20:30 WBC 11.5 H MCHC Neutrophils # 9.4 H Lymphocytes # PT 9.8 L D-Dimer Sodium 125 L Potassium Chloride 88 L Carbon Dioxide BUN Creatinine 0.32 L Glucose 64 L POC Glucose (mg/dL) Calcium 8.2 L AST 81 H 11/15/23 11/16/23 11/16/23 22:44 05:18 05:18 WBC 3.7 L MCHC 30.6 L Neutrophils # Lymphocytes # 0.3 L PT D-Dimer Sodium 129 L Potassium 5.6 H Chloride 90 L Carbon Dioxide 37 H BUN 7 L Creatinine 0.38 L Glucose 109 H POC Glucose (mg/dL) 235 H Calcium AST 67 H 11/16/23 10:55 WBC MCHC Neutrophils # Lymphocytes # PT D-Dimer 1.37 H Sodium Potassium Chloride Carbon Dioxide BUN Creatinine Glucose POC Glucose (mg/dL) Calcium AST Assessment and Plan Plan: Acute exacerbation of chronic COPD with secondary shortness of breath. Chest x- ray is free of any acute pulmonary infiltrates. Exacerbation probably related to this ongoing smoking habit and the patient is smoking around 1 pack of cigarettes on a daily basis. Acute on chronic hypoxic raad failure currently on his O2 nasal cannula Chronic smoker Alcoholism with impending delirium tremens severe COPD, with an FEV1 that is 27% of predicted, currently on Trelegy Ellipta on prednisone 10 mg p.o. daily on outpatient basis Chronic hypoxic respiratory failure the patient has been maintained on oxygen therapy at 4 liters Significant limitation in exercise capacity secondary advanced COPD History of coronary artery disease, status post PCI with stent placement, previous stenting of the RCA and mid LAD back in 2020 History of atrial fibrillation, current rhythm is sinus History of deep vein thrombosis, involving left lower extremity History of GI bleed, and gastroesophageal reflux disease, inactive and stable History of hyperlipidemia History of hypertension History of pneumonia History of obstructive sleep apnea syndrome, on home CPAP History of osteoarthritis History of pneumothorax [id number] IV Solu-Medrol Allow the patient to utilize Trelegy Ellipta from home. Meanwhile The patient is also on a combination of Perforomist and Pulmicort nebulized treatments twice a day BiPAP for respiratory support as needed a pressure of 10 over 5 cm of water. Start the patient on Librium 25 mg 3 times daily and Ativan per [facility] Home medication resumed Prognosis poor based on above-mentioned comorbidities.
--- NOTE | 2023-11-16 14:26 | CT ---
EXAMINATION TYPE: CT angio chest CT DLP: 200.20 mGycm, Automated exposure control for dose reduction was used. DATE OF EXAM: 11/16/2023 2:09 PM COMPARISON: 06/19/2022. CLINICAL INDICATION:Male, 63 years old with history of ELEVATED D DIMER W/SOB; Elevated dimer with SO B TECHNIQUE/CONTRAST: CTA scan of the thorax is performed with IV Contrast, patient injected with 100 mL of Isovue 370, MIP images are created and reviewed these are created on a separate workstation.. FINDINGS: Pulmonary Artery: There is no evidence for a filling defect within the pulmonary vasculature to sugge st acute pulmonary embolism. The pulmonary artery is of normal size. Lungs/Pleura: Moderate to severe emphysema changes throughout the lungs. Scarring along the right brian or fissure. No evidence of focal consolidation, pleural effusion or pneumothorax. Left upper lung nod ule measuring 9 x 6 mm series 4 image 33. This is new. Airway: A few opacified left lower lobe areas. Heart: Heart is within normal limits for size. Mild atherosclerosis of the arterial vasculature. Vasculature: No evidence of aortic aneurysm. Mediastinum: No gross evidence of adenopathy. Musculoskeletal: Mild degenerative disc disease changes are present throughout the thoracolumbar spin e. Soft Tissues/lymph nodes: Unremarkable. Lower neck: No significant findings. Upper Abdomen: No significant findings. IMPRESSION: 1. No evidence of pulmonary embolism. 2. Mucous plugging and/or aspiration of the left lower lobe airways with 3. Severe emphysema 4. Left upper lobe nodule short-term follow-up in 3 months recommended to ensure stability and/or res olution.
[2023-11-16] MEDS ORDERED: DEXTROSE 50% SYRINGE 50 ML IVP PRN ×2 (14:43)
--- NOTE | 2023-11-16 14:46 | P.HPIM ---
History of Present Illness H&P Date: 11/16/23 History of present illness; patient is 63-year-old gentleman past medical his significant for COPD, A-fib, coronary artery disease, hypertension who presented to the ER because of shortness of breath. Patient history of alcohol abuse and was sober for 8 years but recently relapsed and started drinking again. Patient was complaining of shortness of breath for the last few days. Patient also comp lains of chest pressure that is central in location, nonradiating, no aggravating or relieving factors associate with chest pressure. Patient is complaining of wheezing. Complain of shortness of breath on exertion. Denies any orthopnea or PND. There is no complaint of swelling of feet. Initial lab work done in the ER showed WBC 9.5, hemoglobin 14, platelet count 340, sodium 125, potassium 4.9, BUN 9, creatinine 0.32, glucose 64, calcium 8.2, magnesium 1.8, AST 81, ALT 46, Influenza A not detected Influenza B not detected RSV not detected COVID-19 not detected EKG done in the ER showed heart rate of 92 , no ST segment elevation or depression seen, no T-wave inversions seen. Chest x-ray done in the ER showed no consolidation of the left lung base, findings felt to represent eventration of the diaphragm. No acute cardiopulmonary process Patient admitted to internal medicine service REVIEW OF SYSTEMS: CONSTITUTIONAL: No fever, no malaise, no fatigue. HEENT: No recent visual problems or hearing problems. Denied any sore throat. CARDIOVASCULAR: As mentioned above PULMONARY: Mentioned above GASTROINTESTINAL: No diarrhea, no nausea, no vomiting, no abdominal pain. NEUROLOGICAL: No headaches, no weakness, no numbness. HEMATOLOGICAL: Denies any bleeding or petechiae. GENITOURINARY: Denies any burning micturition, frequency, or urgency. MUSCULOSKELETAL/RHEUMATOLOGICAL: Denies any joint pain, swelling, or any muscle pain. ENDOCRINE: Denies any polyuria or polydipsia. The rest of the 14-point review of systems is negative. PHYSICAL EXAMINATION: GENERAL: The patient is alert and oriented x3, not in any acute distress. HEENT: Pupils are round and equally reacting to light. EOMI. No scleral icterus. No conjunctival pallor. Normocephalic, atraumatic. No pharyngeal erythema. No thyromegaly. CARDIOVASCULAR: S1 and S2 present. No murmurs, rubs, or gallops. PULMONARY: Coarse breath sound bilaterally, expiratory wheeze audible ABDOMEN: Soft, nontender, nondistended, normoactive bowel sounds. No palpable organomegaly. MUSCULOSKELETAL: No joint swelling or deformity. EXTREMITIES: No cyanosis, clubbing, or pedal edema. NEUROLOGICAL: Gross neurological examination did not reveal any focal deficits. SKIN: No rashes. Assessment and plan Acute hypoxemic respiratory failure Acute COPD exacerbation Chest pain Alcohol abuse Hyponatremia Hyperkalemia Hyperlipidemia Monitor vital signs Monitor CBC Monitor CMP Continue telemetry monitoring Trend troponin Ordered 2D echo Order D-dimer Start breathing treatments Start IV Solu-Medrol Start CIWA protocol Start high-dose thiamine and folic acid Consult pulmonology consult cardiology Labs and medication were reviewed.. Continue same treatment. Continue with symptomatic treatment. Resume home medication. Monitor labs and vitals. DVT and GI prophylaxis. Further recommendations as per clinical course of the patient Dictation was produced using [employer] dictation software. please excuse any grammatical, word or spelling errors. Past Medical History Past Medical History: Atrial Fibrillation, Coronary Artery Disease (CAD), COPD, Deep Vein Thrombosis (DVT), GERD/Reflux, GI Bleed, Hyperlipidemia, Hypertension, Osteoarthritis (OA), Pneumonia, Sleep Apnea/CPAP/BIPAP Additional Past Medical History / Comment(s): DVT- LEFT LEG, CPAP, pt uses 3 liters 02 when active and at night with cpap. pt has portable 02 History of Any Multi-Drug Resistant Organisms: MRSA Date of last positivie culture/infection: 03/01/22 MRSA MDRO Source:: Right Axilla Past Surgical History: Heart Catheterization With Stent, Orthopedic Surgery Additional Past Surgical History / Comment(s): ABD AORTOGRAM. Other SX: (construction accident balcony fell from building)HAD CRUSHING INJURY TO ANKLES HAD FUSION DONE JOSE ALBERTO, LT FOOT TOE PARTIAL AMP. CHEST TUBE FOR PNEUMOTHORAX. SURGERY TO REMOVE BLOOD CLOT FROM LEG. Bronchial washings/lavage, EGD. femoral bypass,heart stents x3 Past Anesthesia/Blood Transfusion Reactions: No Reported Reaction Additional Past Anesthesia/Blood Transfusion Reaction / Comment(s): Pt states he has never received blood. Date of Last Stent Placement:: 04/2021 Past Psychological History: No Psychological Hx Reported Smoking Status: Current every day smoker Past Alcohol Use History: None Reported Past Drug Use History: Marijuana - Past Family History Father Family Medical History: Coronary Artery Disease (CAD), Diabetes Mellitus, Myocardial Infarction ([place]), Pulmonary Embolus Additional Family Medical History / Comment(s): PE Mother Family Medical History: CVA/TIA Medications and Allergies Home Medications Medication Instructions Recorded Confirmed Type Albuterol Sulfate [Ventolin HFA] 2 puff INHALATION RT-Q6H PRN 11/13/14 11/16/23 History Metoprolol Tartrate 25 mg PO BID 07/27/15 11/16/23 History Albuterol Nebulized [Ventolin 2.5 mg INHALATION RT-TID 12/15/21 11/16/23 History Nebulized] Fluticasone/Umeclidin/Vilanter 1 puff INHALATION RT-DAILY 12/15/21 11/16/23 History [Trelegy Ellipta 100-62.5-25] Pantoprazole Sodium 20 mg PO DAILY 12/15/21 11/16/23 History Ibuprofen 800 mg PO Q8H PRN 12/10/22 11/16/23 History Atorvastatin Calcium [Lipitor] 80 mg PO HS 06/11/23 11/16/23 History Cholecalciferol [Vitamin D3 (25 50 mcg PO DAILY 06/11/23 11/16/23 History Mcg = 1000 Iu)] Aspirin EC [Ecotrin Low Dose] 81 mg PO DAILY 10/05/23 11/16/23 History ALPRAZolam [Xanax] 0.5 mg PO Q12H PRN #2 tab 10/11/23 11/16/23 Rx Folic Acid 1 mg PO DAILY tab 10/11/23 11/16/23 Rx Ipratropium-Albuterol Nebulize 3 ml INHALATION RT-Q4H PRN each 10/11/23 11/16/23 Rx [Duoneb 0.5 mg-3 mg/3 ml Soln] Thiamine [Vitamin B-1] 100 mg PO DAILY tab 10/11/23 11/16/23 Rx guaiFENesin-DM 600/30MG [Mucinex 2 each PO Q12HR tab 10/11/23 11/16/23 Rx Dm] Gabapentin 600 mg PO TID PRN 11/16/23 11/16/23 History HYDROcodone/APAP 5-325MG [[place] 1 tab PO Q6H PRN 11/16/23 11/16/23 History 5-325] Ipratropium-Albuterol Nebulize 3 ml INHALATION RT-QID 11/16/23 11/16/23 History [Duoneb 0.5 mg-3 mg/3 ml Soln] Multivitamins, Thera [Multivitamin 1 tab PO DAILY 11/16/23 11/16/23 History (formulary)] hydrOXYzine HCL [Atarax] 10 mg PO TID PRN 11/16/23 11/16/23 History predniSONE 10 mg PO DAILY 11/16/23 11/16/23 History Allergies Allergy/AdvReac Type Severity Reaction Status Date / Time No Known Allergies Allergy Verified 11/16/23 11:31 Physical Exam Vitals: Vital Signs Temp Pulse Pulse Resp BP BP Pulse Ox 11/16/23 08:35 96 11/16/23 08:25 97 98 11/16/23 07:00 97.9 F 98 146/90 99 11/16/23 00:06 98.3 F 110 H 15 148/88 94 L 11/15/23 23:24 110 H 18 134/80 97 11/15/23 22:57 105 H 11/15/23 22:46 106 H 11/15/23 22:42 10 L 18 134/77 95 11/15/23 21:27 90 20 108/78 95 11/15/23 21:06 107 H 11/15/23 20:56 97 11/15/23 18:45 20 11/15/23 18:36 98.7 F 100 20 133/87 100 Intake and Output 11/15/23 11/16/23 11/16/23 22:59 06:59 14:59 Intake Total 118 Output Total 1100 Balance -982 Intake: Oral 118 Output: Urine 1100 Other: Voiding Method Toilet Weight 54.431 kg 54.431 kg Results CBC & Chem 7: 11/16/23 05:18 11/16/23 05:18 Labs: Abnormal Lab Results - Last 24 Hours (Table) 11/15/23 11/15/23 11/15/23 Range/Units 19:00 19:00 20:30 WBC 11.5 H (3.8-10.6) k/uL MCHC (31.0-37.0) g/dL Neutrophils # 9.4 H (1.3-7.7) k/uL Lymphocytes # (1.0-4.8) k/uL PT 9.8 L (10.0-12.5) sec Sodium 125 L (137-145) mmol/L Potassium (3.5-5.1) mmol/L Chloride 88 L (98-107) mmol/L Carbon Dioxide (22-30) mmol/L BUN (9-20) mg/dL Creatinine 0.32 L (0.66-1.25) mg/dL Glucose 64 L (74-99) mg/dL POC Glucose (mg/dL) (70-110) mg/dL Calcium 8.2 L (8.4-10.2) mg/dL AST 81 H (17-59) U/L 11/15/23 11/16/23 11/16/23 Range/Units 22:44 05:18 05:18 WBC 3.7 L (3.8-10.6) k/uL MCHC 30.6 L (31.0-37.0) g/dL Neutrophils # (1.3-7.7) k/uL Lymphocytes # 0.3 L (1.0-4.8) k/uL PT (10.0-12.5) sec Sodium 129 L (137-145) mmol/L Potassium 5.6 H (3.5-5.1) mmol/L Chloride 90 L (98-107) mmol/L Carbon Dioxide 37 H (22-30) mmol/L BUN 7 L (9-20) mg/dL Creatinine 0.38 L (0.66-1.25) mg/dL Glucose 109 H (74-99) mg/dL POC Glucose (mg/dL) 235 H (70-110) mg/dL Calcium (8.4-10.2) mg/dL AST 67 H (17-59) U/L Thrombosis Risk Factor Assmnt - Choose All That Apply Each Factor Represents 1 point: Abnormal pulmonary function (COPD) Each Risk Factor Represents 2 Points: Age 61-74 years Thrombosis Risk Factor Assessment Total Risk Factor Score: 3 Thrombosis Risk Factor Assessment Level: Moderate Risk
[2023-11-16] MEDS: methylPREDNISolone SOD SUCCI 125 MG/2 ML VIAL IV SCH (15:59)
[2023-11-16] MEDS: LORazepam 1 MG TAB PO PRN (16:08)
[2023-11-16 17:14] LABS: Glucose,Whole Blood 178 mg/dL (70-110)
[2023-11-16] MEDS: INSULIN ASPART (NovoLOG) 100 UNIT/ML VIAL SQ SCH (18:22)
[2023-11-16] MEDS ORDERED: BUDESONIDE 0.25 MG/2 ML NEBU INHALATION SCH (20:00)
[2023-11-16] MEDS: ATORVASTATIN 40 MG TAB PO SCH (20:22)
[2023-11-16 20:33] LABS: Glucose,Whole Blood 220 mg/dL (70-110)
[2023-11-16] MEDS: FORMOTEROL FUMARATE 20 MCG/2 ML NEBU INHALATION SCH (21:35)
[2023-11-16] MEDS: BUDESONIDE 0.5 MG/2 ML NEBU INHALATION SCH (21:35)
[2023-11-16] MEDS: NICOTINE 14MG/24HR PATCH TRANSDERM SCH (21:47)
[2023-11-17] MEDS: ONDANSETRON 4 MG/2 ML VIAL IVP PRN (01:01)
[2023-11-17] MEDS: LORazepam 0.5 MG TAB PO PRN (01:01)
[2023-11-17 01:06] VITALS: RESP 21
[2023-11-17] MEDS: HYDROcodone/APAP 5-325MG 1 EACH TAB PO PRN (05:09)
[2023-11-17] MEDS: GABAPENTIN 300 MG CAP PO PRN (05:09)
[2023-11-17 05:44] LABS: Glucose,Whole Blood 147 mg/dL (70-110)
[2023-11-17 08:30] VITALS: BP 110/76; TEMP 97.6
--- NOTE | 2023-11-17 08:47 | CA ---
Transthoracic Echo Report Name: Eron Escalante Age: 63 Gender: M : 1960 Exam Date: 11/16/2023 14:48 Exam Location: [facility] Ht (in): 70 Wt (lb): 120 Ordering Physician: David Ibarra MD ([id number]) Attending/Referring Phys: Ergonomic Specialist Mary Ventura RDCS Procedure CPT: Indications: Chest Pain Cardiac Hx: Technical Quality: Technically difficult study Contrast 1: Total Dose (mL): Contrast 2: Total Dose (mL): MEASUREMENTS (Male / Female) Normal Values 2D ECHO LV Diastolic Diameter PLAX 4.3 cm 4.2 - 5.9 / 3.9 - 5.3 cm LV Systolic Diameter PLAX 2.7 cm IVS Diastolic Thickness 0.8 cm 0.6 - 1.0 / 0.6 - 0.9 cm LVPW Diastolic Thickness 0.8 cm 0.6 - 1.0 / 0.6 - 0.9 cm LV Relative Wall Thickness 0.4 LVOT Diameter 2.2 cm DOPPLER AV Peak Velocity 115.7 cm/s AV Peak Gradient 5.4 mmHg AV Mean Velocity 93.0 cm/s AV Mean Gradient 3.6 mmHg AV Velocity Time Integral 20.4 cm LVOT Peak Velocity 91.1 cm/s LVOT Peak Gradient 3.3 mmHg LVOT Velocity Time Integral 16.5 cm LVOT Stroke Volume 65.0 cm??? LVOT Stroke Volume Index 38.7 ml/m??? LVOT Cardiac Index 3081.5 cm???/min???m??? AV Area Cont Eq vti 3.2 cm??? AV Area Cont Eq pk 3.1 cm??? PV Peak Velocity 111.9 cm/s PV Peak Gradient 5.0 mmHg FINDINGS Left Ventricle Left ventricular ejection fraction is estimated at 65 %. Left ventricular cavity size normal. Left ventricular wall thickness normal. No obvious regional wall motion abnormalities. Right Ventricle Normal right ventricular size and function. Unable to estimate the right ventricular systolic pressure. Right Atrium Right atrium not well visualized. Left Atrium Left atrium not well visualized. Mitral Valve Structurally normal mitral valve. No mitral stenosis, regurgitation or prolapse. Aortic Valve Trileaflet aortic valve. No aortic valve stenosis or regurgitation. Tricuspid Valve Structurally normal tricuspid valve. No tricuspid stenosis. No tricuspid regurgitation. Pulmonic Valve Pulmonic valve not well visualized. No pulmonic stenosis. No pulmonic regurgitation. Pericardium No pericardial effusion. Aorta Mildly dilated aortic annulus. Ascending aorta not well visualized. CONCLUSIONS Left ventricular ejection fraction is estimated at 65 %. No obvious regional wall motion abnormalities. Normal right ventricular size and function. No significant valve pathology Previewed by: Dr David Ibarra (Electronically Signed) Final Date: 17 November 2023 08:46
--- NOTE | 2023-11-17 09:29 | P.PN ---
Subjective Progress Note Date: 11/17/23 HISTORY OF PRESENTING ILLNESS 63-year-old presented to the hospital because of increased shortness of breath and chest pressure symptoms. He reports that he relapsed and has started drinking and smoking again. He was 1 month ago hospitalized for acute COPD exacerbation. He was discharged to [facility]. He has prior history of CAD known to Dr. Magaña. Last PCI in 2020 to mid LAD. Last heart catheter in 2022 showed patent stents in RCA and LAD with mild disease in OM. Patient reports that he has been compliant with aspirin and Lipitor. ECG shows normal sinus rhythm, heart rate 92 bpm First troponin is negative, WBC 11.5, sodium 125, potassium 4.9, creatinine 0.3, BNP 36 Progress note November 17, 2023 Patient is doing well from cardiovascular standpoint. He is hemodynamically stable. Blood pressure is optimally controlled. Electrolytes are improving. No chest pain chest pressure at this moment. His breathing is improved with the breathing treatments and COPD management. PHYSICAL EXAMINATION Vital signs reviewed. Head: Normocephalic. Eyes: Sclerae nonicteric. Neck: Brisk carotid upstroke, no jugular venous distention. Lungs: Wheezing in bilateral lung blanca Heart: Regular rate and rhythm, S1-S2, no S3, no murmur or rub. Abdomen: Soft nontender, positive bowel sounds. Extremities: No edema, intact distal pulses. Neuro: Alert, oritented, no focal deficits. Detailed neuro exam was not performed. ASSESSMENT Substernal chest pressure. Rule out of acute coronary syndrome Acute hypoxic respiratory failure with acute COPD exacerbation Alcohol abuse, currently going through withdrawal Electrolyte abnormality, likely due to alcohol use and poor oral intake. Hyponatremia hyperkalemia Prior history of CAD s/p PCI to LAD and RCA. Last PCI in 2020. Last heart cath in 2022 showed patent stents and mild OM disease Echo: EF55%, normal RV and LV size no RWMA PLAN Resume aspirin, atorvastatin, metoprolol 25 mg twice daily Add Imdur 15 mg daily for intensification of antianginal therapy Patient is currently in COPD exacerbation with severe wheezing. Pulmo team following Patient has hyponatremia, hyperkalemia. Electrolyte abnormalities most likely due to alcohol use. Currently in alcohol withdrawal. Improving Monitor electrolytes There is questionable history of DVT and atrial fibrillation. I have not been able to find any clinical documentation of atrial fibrillation or DVT in the hospital chart. On Saturday would obtain clinic records to see if patient really needs systemic anticoagulation. Objective - Vital Signs Vital signs: Vital Signs Temp 97.6 F 11/17/23 07:00 Pulse 80 11/17/23 08:25 Resp 21 11/17/23 01:05 BP 110/76 11/17/23 07:00 Pulse Ox 97 11/17/23 08:05 FiO2 Intake & Output 11/16/23 11/17/23 11/17/23 18:59 06:59 18:59 Intake Total 836 358 Output Total 1100 1900 1075 Balance -264 -1900 -778 Weight 54.431 kg Intake: Oral 836 358 Output: Urine 1100 1900 1075 Other: Voiding Method Toilet Urinal # Voids 1 # Bowel Movements 1 - Labs CBC & Chem 7: 11/16/23 05:18 11/16/23 14:30 Labs: Abnormal Lab Results - Last 24 Hours (Table) 11/16/23 11/16/23 11/16/23 Range/Units 10:55 17:13 20:31 D-Dimer 1.37 H (<0.60) mg/L FEU POC Glucose (mg/dL) 178 H 220 H (70-110) mg/dL 11/17/23 Range/Units 05:42 D-Dimer (<0.60) mg/L FEU POC Glucose (mg/dL) 147 H (70-110) mg/dL
[2023-11-17 11:57] VITALS: PULSE 84
[2023-11-17 12:21] LABS: Glucose,Whole Blood 163 mg/dL (70-110)
--- NOTE | 2023-11-17 13:05 | P.DS ---
Providers Date of admission: 11/15/23 22:57 Expected date of discharge: 11/17/23 Attending physician: Sussy Albert MD Consults: 11/16/23 08:33 Consult Physician Urgent Consulting Provider: [facility] Consult Reason/Comments: chest pain Do you want consulting provider notified?: Yes 11/16/23 09:59 Consult Physician Routine Consulting Provider: Jass Nelson Consult Reason/Comments: COPD exacerbation, respiratory failure Do you want consulting provider notified?: Yes Primary care physician: [facility] Course: Discharge diagnoses; Acute on chronic hypoxemic respiratory failure Acute COPD exacerbation Chest pain Alcohol abuse Hyponatremia Hyperkalemia Hyperlipidemia History of coronary artery disease, status post PCI with stent placement, previous stenting of the RCA and mid LAD back in 2020 History of atrial fibrillation, current rhythm is sinus History of deep vein thrombosis, involving left lower extremity History of GI bleed, and gastroesophageal reflux disease, inactive and stable History of hyperlipidemia History of hypertension History of pneumonia History of obstructive sleep apnea syndrome, on home CPAP History of osteoarthritis History of pneumothorax Hospital course; patient is 63-year-old gentleman past medical his significant for COPD, A-fib, coronary artery disease, hypertension who presented to the ER because of shortness of breath. Patient history of alcohol abuse and was sober for 8 years but recently relapsed and started drinking again. Patient was complaining of shortness of breath for the last few days. Patient also complains of chest pressure that is central in location, nonradiating, no aggravating or relieving factors associate with chest pressure. Patient is complaining of wheezing. Complain of shortness of breath on exertion. Denies any orthopnea or PND. There is no complaint of swelling of feet. Initial lab work done in the ER showed WBC 9.5, hemoglobin 14, platelet count 340, sodium 125, potassium 4.9, BUN 9, creatinine 0.32, glucose 64, calcium 8.2, magnesium 1.8, AST 81, ALT 46, Influenza A not detected Influenza B not detected RSV not detected COVID-19 not detected EKG done in the ER showed heart rate of 92 , no ST segment elevation or depression seen, no T-wave inversions seen. Chest x-ray done in the ER showed no consolidation of the left lung base, findings felt to represent eventration of the diaphragm. No acute cardiopulmonary process Patient admitted to internal medicine service 11/16. Patient seen examined. CTA chest done showed no evidence of PE, showed m ucous plugging and aspiration of left upper lobe airways with severe emphysema. Left upper lobe nodule. 2D echo done showed left medical ejection fraction at 65%, no wall motion abnormalities. Cardiology evaluated the patient, recommended no ischemic workup, recommended adding Imdur. Pulmonology recommended starting patient on tapering dose of prednisone. Patient was not keen to stay in the hospital any longer, wanted to be discharged, stated that he will follow-up outpatient with his PCP PHYSICAL EXAMINATION: GENERAL: The patient is alert and oriented x3, not in any acute distress. Well developed, well nourished. HEENT: Pupils are round and equally reacting to light. EOMI. No scleral icterus. No conjunctival pallor. Normocephalic, atraumatic. No pharyngeal erythema. No thyromegaly. CARDIOVASCULAR: S1 and S2 present. No murmurs, rubs, or gallops. PULMONARY: Coarse breath sound bilaterally ABDOMEN: Soft, nontender, nondistended, normoactive bowel sounds. No palpable organomegaly. MUSCULOSKELETAL: No joint swelling or deformity. EXTREMITIES: No cyanosis, clubbing, or pedal edema. NEUROLOGICAL: Gross neurological examination did not reveal any focal deficits. SKIN: No rashes. Dictation was produced using [employer] dictation software. please excuse any grammatical, word or spelling errors. Patient Condition at Discharge: Fair Plan - Discharge Summary New Discharge Prescriptions: New Isosorbide Mononitrate ER [Imdur] 15 mg PO DAILY 30 Days #30 tab predniSONE 10 mg PO DAILY 8 Days #20 tab NS Continue Albuterol Sulfate [Ventolin HFA] 2 puff INHALATION RT-Q6H PRN PRN Reason: Shortness Of Breath Or Wheezing Metoprolol Tartrate 25 mg PO BID Fluticasone/Umeclidin/Vilanter [Trelegy Ellipta 100-62.5-25] 1 puff INHALATION RT-DAILY Atorvastatin Calcium [Lipitor] 80 mg PO HS Aspirin EC [Ecotrin Low Dose] 81 mg PO DAILY Ipratropium-Albuterol Nebulize [Duoneb 0.5 mg-3 mg/3 ml Soln] 3 ml INHALATION RT-Q4H PRN each PRN Reason: shortness of breath Thiamine [Vitamin B-1] 100 mg PO DAILY tab Ipratropium-Albuterol Nebulize [Duoneb 0.5 mg-3 mg/3 ml Soln] 3 ml INHALATION RT-QID hydrOXYzine HCL [Atarax] 10 mg PO TID PRN PRN Reason: Anxiety Albuterol Nebulized [Ventolin Nebulized] 2.5 mg INHALATION RT-TID Pantoprazole Sodium 20 mg PO DAILY Ibuprofen 800 mg PO Q8H PRN PRN Reason: Pain Cholecalciferol [Vitamin D3 (25 Mcg = 1000 Iu)] 50 mcg PO DAILY Folic Acid 1 mg PO DAILY tab guaiFENesin-DM 600/30MG [Mucinex Dm] 2 each PO Q12HR tab ALPRAZolam [Xanax] 0.5 mg PO Q12H PRN #2 tab PRN Reason: Anxiety Gabapentin 600 mg PO TID PRN PRN Reason: nerve pain HYDROcodone/APAP 5-325MG [Dewitt 5-325] 1 tab PO Q6H PRN PRN Reason: Pain Multivitamins, Thera [Multivitamin (formulary)] 1 tab PO DAILY predniSONE 10 mg PO DAILY Discharge Medication List Albuterol Sulfate [Ventolin HFA] 2 puff INHALATION RT-Q6H PRN 11/13/14 [History] Metoprolol Tartrate 25 mg PO BID 07/27/15 [History] Albuterol Nebulized [Ventolin Nebulized] 2.5 mg INHALATION RT-TID 12/15/21 [ History] Fluticasone/Umeclidin/Vilanter [Trelegy Ellipta 100-62.5-25] 1 puff INHALATION RT-DAILY 12/15/21 [History] Pantoprazole Sodium 20 mg PO DAILY 12/15/21 [History] Ibuprofen 800 mg PO Q8H PRN 12/10/22 [History] Atorvastatin Calcium [Lipitor] 80 mg PO HS 06/11/23 [History] Cholecalciferol [Vitamin D3 (25 Mcg = 1000 Iu)] 50 mcg PO DAILY 06/11/23 [History] Aspirin EC [Ecotrin Low Dose] 81 mg PO DAILY 10/05/23 [History] ALPRAZolam [Xanax] 0.5 mg PO Q12H PRN #2 tab 10/11/23 [Rx] Folic Acid 1 mg PO DAILY tab 10/11/23 [Rx] Ipratropium-Albuterol Nebulize [Duoneb 0.5 mg-3 mg/3 ml Soln] 3 ml INHALATION RT-Q4H PRN each 10/11/23 [Rx] Thiamine [Vitamin B-1] 100 mg PO DAILY tab 10/11/23 [Rx] guaiFENesin-DM 600/30MG [Mucinex Dm] 2 each PO Q12HR tab 10/11/23 [Rx] Gabapentin 600 mg PO TID PRN 11/16/23 [History] HYDROcodone/APAP 5-325MG [Dewitt 5-325] 1 tab PO Q6H PRN 11/16/23 [History] Ipratropium-Albuterol Nebulize [Duoneb 0.5 mg-3 mg/3 ml Soln] 3 ml INHALATION RT-QID 11/16/23 [History] Multivitamins, Thera [Multivitamin (formulary)] 1 tab PO DAILY 11/16/23 [History] hydrOXYzine HCL [Atarax] 10 mg PO TID PRN 11/16/23 [History] predniSONE 10 mg PO DAILY 11/16/23 [History] Isosorbide Mononitrate ER [Imdur] 15 mg PO DAILY 30 Days #30 tab 11/17/23 [Rx] predniSONE 10 mg PO DAILY 8 Days #20 tab NS 11/17/23 [Rx] Follow up Appointment(s)/Referral(s): Ashlyn Toro MD [Primary Care Provider] - 1-2 days
--- NOTE | 2023-11-17 13:29 | P.PN ---
Subjective Progress Note Date: 11/17/23 11/16/2023, the patient is being seen in consultation for shortness of breath and chest pain. The patient is well and well-known to me. The patient has history of advanced COPD and the patient is oxygen dependent. The patient was in the hospital and he was discharged from the hospital on 10/11/2023 after being treated for skilled exacerbation. The patient is known to have advanced COPD with an FEV1 27% predicted, maintained on Trelegy Ellipta and prednisone maintenance dose of 10 mg p.o. daily. He is known to have chronic hypoxic raad failure on 4 L of oxygen by nasal cannula and he is significant and patient exercise capacity. He is also known to have CAD with previous coronary stenting of the RCA and mid LAD back in 2020, chronic A-fib, paroxysmal in nature along with previous history of DVT of the left lower extremity, hypertension hyperlipidemia obstructive sleep apnea and previous history of pneumothorax. The patient is also a chronic smoker and continues to smoke 1 pack of cigarettes a day and drinking around 12 pack beer on a daily basis. He came into the hospital because of chest pain shortness of breath. Cardiac enzymes are negative. Troponins are negative. proBNP level is at 36 and the patient had a chest x-ray that was consistent with COPD. No evidence of any airspace disease or consolidation. He is shaking his withdrawing from alcoholism at this point in time. He is up on his O2 nasal cannula with a +98%. The white cell count of 3.7 and the platelet count is 283. Rest of electrolytes show sodium level 129, potassium level of 5.6, BUN 7 with a creatinine of 0.38. Cardiology has been consulted. The patient is on Perforomist and Pulmicort nebulized treatments twice daily, DuoNeb updrafts and IV Solu-Medrol. Librium and Ativan was also added for DT treatment. 11/17/2023, the patient is being seen for a follow-up. The patient is feeling better compared to yesterday. Less bronchospastic and wheezy. No active signs of delirium tremens. He is quite weak and debilitated. He is currently on bronchodilators and steroids. He was also started on Librium and Ativan for DT protocol. IV fluids of normal sinus rate of 50 cc an hour. He remains quite weak and debilitated. He wants to go home as the patient states that he has adequate support at home including visiting nurses. Objective - Vital Signs Vital signs: Vital Signs Temp 97.6 F 11/17/23 07:00 Pulse 80 11/17/23 08:25 Resp 21 11/17/23 01:05 BP 110/76 11/17/23 07:00 Pulse Ox 97 11/17/23 08:05 FiO2 Intake & Output 11/16/23 11/17/23 11/17/23 18:59 06:59 18:59 Intake Total 836 358 Output Total 1100 1900 1075 Balance -264 -7987 -392 Weight 54.431 kg Intake: Oral 836 358 Output: Urine 1100 1900 1075 Other: Voiding Method Toilet Urinal # Voids 1 # Bowel Movements 1 - Exam GENERAL EXAM: Alert, pleasant 62-year-old male patient, on 4 L nasal cannula, breathing is slightly labored HEAD: Normocephalic. EYES: Normal reaction of pupils, equal size. NOSE: Clear with pink turbinates. THROAT: No erythema or exudates. NECK: No masses, no JVD. CHEST: No chest wall deformity. LUNGS: Diminished but equal air entry with bilateral end expiratory wheeze, diminished. Breath sounds are mildly diminished in all 4 extremities. Chest wall is also sore. CVS: S1 and S2 normal with no audible murmur, regular rhythm. ABDOMEN: No hepatosplenomegaly, normal bowel sounds, no guarding or rigidity. SPINE: No scoliosis or deformity SKIN: No rashes CENTRAL NERVOUS SYSTEM: No focal deficits, tone is normal in all 4 extremities. Shaking and tremoring related to alcohol withdrawal. EXTREMITIES: There is no peripheral edema. No clubbing, no cyanosis. Peripheral pulses are intact. - Labs CBC & Chem 7: 11/16/23 05:18 11/16/23 14:30 Labs: Abnormal Lab Results - Last 24 Hours (Table) 11/16/23 11/16/23 11/16/23 Range/Units 10:55 17:13 20:31 D-Dimer 1.37 H (<0.60) mg/L FEU POC Glucose (mg/dL) 178 H 220 H (70-110) mg/dL 11/17/23 Range/Units 05:42 D-Dimer (<0.60) mg/L FEU POC Glucose (mg/dL) 147 H (70-110) mg/dL Assessment and Plan Plan: Acute exacerbation of chronic COPD with secondary shortness of breath. Chest x- ray is free of any acute pulmonary infiltrates. Exacerbation probably related to this ongoing smoking habit and the patient is smoking around 1 pack of cigarettes on a daily basis. Acute on chronic hypoxic raad failure currently on his O2 nasal cannula Chronic smoker Alcoholism with impending delirium tremens severe COPD, with an FEV1 that is 27% of predicted, currently on Trelegy Ellipta on prednisone 10 mg p.o. daily on outpatient basis Chronic hypoxic respiratory failure the patient has been maintained on oxygen therapy at 4 liters Significant limitation in exercise capacity secondary advanced COPD History of coronary artery disease, status post PCI with stent placement, previous stenting of the RCA and mid LAD back in 2020 History of atrial fibrillation, current rhythm is sinus History of deep vein thrombosis, involving left lower extremity History of GI bleed, and gastroesophageal reflux disease, inactive and stable History of hyperlipidemia History of hypertension History of pneumonia History of obstructive sleep apnea syndrome, on home CPAP History of osteoarthritis History of pneumothorax Plan Clinically improved compared to yesterday. The patient wants to go home. I think it is possible with the understanding that the patient needs to quit smoking. I think based on his lifestyle and smoking drinking patent, he is at a high risk for admission. DuoNeb updrafts [id number] Patient may be able to discharge home on prednisone burst taper and maintaining 7 to 10 mg of prednisone daily basis. Allow the patient to utilize Trelegy Ellipta from home. Albuterol updrafts 4 times a day Prognosis poor based on above-mentioned comorbidities.
== END 2023-11-17 13:43 | disposition home or self-care (01) ==
LOC: EC 18:34 → 6NMEDSUR 22:57
PROVIDERS: ADMIT Internal Medicine; ATTEND Internal Medicine
DX: J44.1 Chronic obstructive pulmonary disease with (acute) exacerbation (principal); J96.21 Acute and chronic respiratory failure with hypoxia; F10.10 Alcohol abuse, uncomplicated; E87.1 Hypo-osmolality and hyponatremia; E87.6 Hypokalemia; E78.5 Hyperlipidemia, unspecified; I25.10 Atherosclerotic heart disease of native coronary artery without angina pectoris; E87.5 Hyperkalemia; Z99.81 Dependence on supplemental oxygen; Z95.5 Presence of coronary angioplasty implant and graft; Z87.01 Personal history of pneumonia (recurrent); Z86.718 Personal history of other venous thrombosis and embolism; Z83.3 Family history of diabetes mellitus; Z82.49 Family history of ischemic heart disease and other diseases of the circulatory system; Z79.899 Other long term (current) drug therapy; Z79.82 Long term (current) use of aspirin; Z79.52 Long term (current) use of systemic steroids; Z79.51 Long term (current) use of inhaled steroids
CPT/HCPCS: 96376 ×2; 96361 ×2; 96374; 96375 ×2; 99285; 36415; 94640 ×5; 94760 ×2; 93005; 93306; 85379; 83880; 80053 ×2; 83690; 83735; 84132; 84484 ×2; 85025 ×2; 85610; 85730; 83036; 87636; 71046; 71275; G0378 ×3; S4990 ×2; J2060; J2405 ×2; Q9967; J2919 ×4

== ENCOUNTER 2023-11-24 19:13 | Inpatient (IN) | payer MEDICARE, OTHER ==
[2023-11-24] MEDS: SODIUM CHLORIDE 0.9% 1,000 ML IV STA ×2 (19:30→22:37)
[2023-11-24] MEDS: ASPIRIN 81 MG PO STA (19:34)
[2023-11-24] MEDS: METOPROLOL TARTRATE 5 MG/5 ML VIAL IVP STA (19:42)
[2023-11-24 19:51] LABS: Basophils % (A) 0 %; Eosinophils # (A) 0.1 k/uL (0-0.7); Eosinophils % (A) 1 %; HCT 42.5 % (39.0-53.0); HGB 13.5 gm/dL (13.0-17.5); Lymphocytes # (A) 0.4 k/uL (1.0-4.8); Lymphocytes % (A) 5 %; MCH 30.3 pg (25.0-35.0); MCHC 31.7 g/dL (31.0-37.0); MCV 95.7 fL (80.0-100.0); Monocytes # (A) 0.4 k/uL (0-1.0); Monocytes % (A) 5 %; Neutrophils # (A) 7.3 k/uL (1.3-7.7); Neutrophils % (A) 87 %; Platelet Count 251 k/uL (150-450); RBC 4.45 m/uL (4.30-5.90); WBC 8.4 k/uL (3.8-10.6)
--- NOTE | 2023-11-24 19:51 | XR ---
EXAMINATION TYPE: XR chest 2V DATE OF EXAM: 11/24/2023 7:40 PM CLINICAL INDICATION:Male, 63 years old with history of Chest Pain; H COMPARISON: Chest radiographs from 11/15/2023 TECHNIQUE: XR chest 2V Frontal view of the chest. FINDINGS: Lungs/Pleura: There is flattening of the diaphragm with increased lucency of the lungs. No evidence o f pneumothorax, pleural effusion or focal consolidation. Pulmonary vascularity: Unremarkable. Heart/mediastinum: Cardiomediastinal silhouette is unremarkable. Musculoskeletal: No acute osseous pathology. IMPRESSION: 1. No acute cardiopulmonary disease process. 2. COPD changes.
[2023-11-24 20:16] LABS: ALT 88 U/L (4-49); AST 112 U/L (17-59); African American GFR (CKD) >90 (>60 ml/min/1.73 sqM); Albumin 4.2 g/dL (3.5-5.0); Alkaline Phosphatase 86 U/L (38-126); Anion Gap 12 mmol/L; Blood Urea Nitrogen 12 mg/dL (9-20); Calcium 8.7 mg/dL (8.4-10.2); Carbon Dioxide 28 mmol/L (22-30); Chloride 92 mmol/L (98-107); Glucose 129 mg/dL (74-99); Lipase 232 U/L (23-300); Non-African American GFR(CKD) >90 (>60 ml/min/1.73 sqM); Potassium 4.7 mmol/L (3.5-5.1); Sodium 132 mmol/L (137-145); Total Bilirubin 0.5 mg/dL (0.2-1.3); Total Protein 6.5 g/dL (6.3-8.2)
[2023-11-24] MEDS: fentaNYL (PF) 50 MCG/ML 2 ML AMP IVP STA (20:18)
[2023-11-24] MEDS: METOPROLOL TARTRATE 25 MG TAB PO STA (20:18)
[2023-11-24] MEDS: NITROGLYCERIN SL TABS 0.4 MG TAB SUBLINGUAL STA ×2 (20:19→21:00)
[2023-11-24 20:23] LABS: NT-Pro-B-Type Natriuretic Pept 38 pg/mL
[2023-11-24 20:26] LABS: INR 0.8 (<1.2); Partial Thromboplastin Time 22.3 sec (22.0-30.0); Prothrombin Time 9.5 sec (10.0-12.5)
[2023-11-24] MEDS ORDERED: LORazepam 2 MG/ML INJ IV PRN ×2 (20:26)
[2023-11-24] MEDS: NITROGLYCERIN OINT 1 INCH/GM PACKET TOPICAL SCH (21:08)
[2023-11-24] MEDS: IPRATROPIUM-ALBUTEROL 3 ML NEB INHALATION STA (21:30)
[2023-11-24] MEDS: LORazepam 2 MG/ML INJ IV PRN (21:45)
[2023-11-24] MEDS ORDERED: NALOXONE 0.4 MG/ML 1 ML VIAL IV PRN (21:54)
--- NOTE | 2023-11-24 22:16 | ED ---
General Adult HPI - General Chief complaint: Chest Pain Stated complaint: Chest Pain Time Seen by Provider: 11/24/23 19:21 Source: patient, EMS, RN notes reviewed, old records reviewed Mode of arrival: EMS Limitations: no limitations - History of Present Illness Initial comments: Patient is a 63-year-old male with past medical history markable for alcohol abuse, A-fib, CAD, COPD on 3 L nasal cannula oxygen, hypertension. No longer on blood thinners. Presents emergency department with multiple complaints. Primary complaint is chest pain. Describes as a pressure-like sensation over the left side of his chest. No radiation. He is also complaining of chronic dyspnea. Believes that this is COPD. Also believes he may be going through mild alcohol withdrawals. Does have a history of these. Drinks on a daily basis. Presents for further evaluation at this time. - Related Data Home Medications Medication Instructions Recorded Confirmed Albuterol Sulfate [Ventolin HFA] 2 puff INHALATION RT-Q6H PRN 11/13/14 11/16/23 Metoprolol Tartrate 25 mg PO BID 07/27/15 11/16/23 Albuterol Nebulized [Ventolin 2.5 mg INHALATION RT-TID 12/15/21 11/16/23 Nebulized] Fluticasone/Umeclidin/Vilanter 1 puff INHALATION RT-DAILY 12/15/21 11/16/23 [Trelegy Ellipta 100-62.5-25] Pantoprazole Sodium 20 mg PO DAILY 12/15/21 11/16/23 Ibuprofen 800 mg PO Q8H PRN 12/10/22 11/16/23 Atorvastatin Calcium [Lipitor] 80 mg PO HS 06/11/23 11/16/23 Cholecalciferol [Vitamin D3 (25 50 mcg PO DAILY 06/11/23 11/16/23 Mcg = 1000 Iu)] Aspirin EC [Ecotrin Low Dose] 81 mg PO DAILY 10/05/23 11/16/23 Gabapentin 600 mg PO TID PRN 11/16/23 11/16/23 HYDROcodone/APAP 5-325MG [[place] 1 tab PO Q6H PRN 11/16/23 11/16/23 5-325] Ipratropium-Albuterol Nebulize 3 ml INHALATION RT-QID 11/16/23 11/16/23 [Duoneb 0.5 mg-3 mg/3 ml Soln] Multivitamins, Thera [Multivitamin 1 tab PO DAILY 11/16/23 11/16/23 (formulary)] hydrOXYzine HCL [Atarax] 10 mg PO TID PRN 11/16/23 11/16/23 predniSONE 10 mg PO DAILY 11/16/23 11/16/23 Previous Rx's Medication Instructions Recorded ALPRAZolam [Xanax] 0.5 mg PO Q12H PRN #2 tab 10/11/23 Folic Acid 1 mg PO DAILY tab 10/11/23 Ipratropium-Albuterol Nebulize 3 ml INHALATION RT-Q4H PRN each 10/11/23 [Duoneb 0.5 mg-3 mg/3 ml Soln] Thiamine [Vitamin B-1] 100 mg PO DAILY tab 10/11/23 guaiFENesin-DM 600/30MG [Mucinex 2 each PO Q12HR tab 10/11/23 Dm] Isosorbide Mononitrate ER [Imdur] 15 mg PO DAILY 30 Days #30 tab 11/17/23 predniSONE 10 mg PO DAILY 8 Days #20 tab NS 11/17/23 Allergies Allergy/AdvReac Type Severity Reaction Status Date / Time No Known Allergies Allergy Verified 11/24/23 19:14 Review of Systems ROS Statement: Those systems with pertinent positive or pertinent negative responses have been documented in the HPI. Review of Systems: CONST: Denies fever EYES: Denies blurry vision ENT: Denies nasal congestion C/V: Endorses chest pain RESP: Endorses shortness of breath GI: Denies abdominal pain : Denies dysuria SKIN: Denies rash. MSK: Denies joint pain. NEURO: Denies headache ROS Other: All systems not noted in ROS Statement are negative. Past Medical History Past Medical History: Atrial Fibrillation, Coronary Artery Disease (CAD), COPD, Deep Vein Thrombosis (DVT), GERD/Reflux, GI Bleed, Hyperlipidemia, Hypertension, Osteoarthritis (OA), Pneumonia, Sleep Apnea/CPAP/BIPAP Additional Past Medical History / Comment(s): DVT- LEFT LEG, CPAP, pt uses 3 liters 02 when active and at night with cpap. pt has portable 02 History of Any Multi-Drug Resistant Organisms: MRSA Date of last positivie culture/infection: 03/01/22 MRSA MDRO Source:: Right Axilla Past Surgical History: Heart Catheterization With Stent, Orthopedic Surgery Additional Past Surgical History / Comment(s): ABD AORTOGRAM. Other SX: (construction accident balcony fell from building)HAD CRUSHING INJURY TO ANKLES HAD FUSION DONE JOSE ALBERTO, LT FOOT TOE PARTIAL AMP. CHEST TUBE FOR PNEUMOTHORAX. SURGERY TO REMOVE BLOOD CLOT FROM LEG. Bronchial washings/lavage, EGD. femoral bypass,heart stents x3 Past Anesthesia/Blood Transfusion Reactions: No Reported Reaction Additional Past Anesthesia/Blood Transfusion Reaction / Comment(s): Pt states he has never received blood. Date of Last Stent Placement:: 04/2021 Past Psychological History: No Psychological Hx Reported Smoking Status: Current every day smoker Past Alcohol Use History: None Reported Past Drug Use History: Marijuana - Past Family History Father Family Medical History: Coronary Artery Disease (CAD), Diabetes Mellitus, Myocardial Infarction (CA), Pulmonary Embolus Additional Family Medical History / Comment(s): PE Mother Family Medical History: CVA/TIA General Exam - General Exam Comments Initial Comments: General: Appears in mild distress. HEAD: Normal with no signs of head trauma. EYES: PERRLA, EOMI, conjunctiva normal, no discharge. ENT: Hearing grossly intact, normal oropharynx. RESPIRATORY: Bilateral end expiratory wheezing. No significant increased work of breathing saturating normally on his baseline 3 L nasal cannula oxygen. C/V: Irregular rate and rhythm. S1 and S2 auscultated, mild lower extremity pitting edema, peripheral pulses 2+ and intact throughout ABD: Abd is soft, nontender, nondistended EXT: Normal range of motion, no obvious deformity SKIN: No rashes or lesions observed on exposed skin. NEURO: Alert and oriented x 4. Limitations: no limitations Course Vital Signs 11/24/23 11/24/23 11/24/23 19:15 19:30 20:00 Pulse Rate 133 H 126 H 109 H Respiratory 22 16 10 L Rate Blood Pressure 92/79 102/81 107/77 O2 Sat by Pulse 95 95 93 L Oximetry 11/24/23 11/24/23 11/24/23 20:30 21:00 21:32 Pulse Rate 102 H 93 93 Respiratory 18 12 Rate Blood Pressure 117/76 127/89 O2 Sat by Pulse 95 96 Oximetry 11/24/23 21:40 Pulse Rate 95 Respiratory Rate Blood Pressure O2 Sat by Pulse Oximetry Medical Decision Making - Medical Decision Making Was pt. sent in by a medical professional or institution (, DASHAWN, [employer] SHINGLE, urgent care, hospital, or fdc...) When possible be specific @ -No Did you speak to anyone other than the patient for history (EMS, parent, family, police, friend...)? What history was obtained from this source @ -No Did you review nursing and triage notes (agree or disagree)? Why? @ -I reviewed and agree with nursing and triage notes Were old charts reviewed (outside hosp., previous admission, EMS record, old EKG, old radiological studies, urgent care reports/EKG's, fdc records)? Report findings @ -Old chart including EKGs and med list reviewed. He was reviewed from most recent visit on October 16, 2023 Differential Diagnosis (chest pain, altered mental status, abdominal pain women, abdominal pain men, vaginal bleeding, weakness, fever, dyspnea, syncope, he adache, dizziness, GI bleed, back pain, seizure, CVA, palpatations, mental health, musculoskeletal)? @ -Differential Chest Pain: Stable Angina, Unstable Angina, STEMI, NSTEMI Aortic Dissection, Pneumothorax, Musculoskeletal, Esophageal Spasm GERD, Cholecystitis, Pancreatitis, Zoster, this is not meant to be an all-inclusive list. EKG interpreted by me (3pts min.). @ -As above X-rays interpreted by me (1pt min.). @ -Chest x-ray reveals no obvious acute cardiopulmonary process. CT interpreted by me (1pt min.). @ -None done U/S interpreted by me (1pt. min.). @ -None done What testing was considered but not performed or refused? (CT, X-rays, U/S, labs)? Why? @ -None What meds were considered but not given or refused? Why? @ -None Did you discuss the management of the patient with other professionals (professionals i.e. DASHAWN Farrell, [employer] SHINGLE, lab, RT, psych nurse, social work supervisor, government documents librarian, teacher, press officer, pillowcase sewer)? Give summary @ -Discussed with [facility] Gomez who accepted the admission. Was smoking cessation discussed for >3mins.? @ -No Was critical care preformed (if so, how long)? @ -Yes, 33 minutes. Were there social determinants of health that impacted care today? How? (Homelessness, low income, unemployed, alcoholism, drug addiction, transportation, low edu. Level, literacy, decrease access to med. care, senior living, rehab)? @ -No Was there de-escalation of care discussed even if they declined (Discuss DNR or withdrawal of care, Hospice)? DNR status @ -No What co-morbidities impacted this encounter? (DM, HTN, Smoking, COPD, CAD, Cancer, CVA, ARF, Chemo, Hep., AIDS, mental health diagnosis, sleep apnea, morbid obesity)? @ -A-fib, COPD, chronic hypoxic respiratory failure, CAD with stents Was patient admitted / discharged? Hospital course, mention meds given and route, prescriptions, significant lab abnormalities, going to OR and other pertinent info. @ -Based on the patient's presentation and physical exam, presents emergency department chest pain, dyspnea. Appears to be having COPD exacerbation. Also has a significant cardiac history. Will obtain cardiac workup. Presents in A- fib with RVR with soft blood pressures. He will receive IV fluids as well as IV metoprolol. Patient was in agreement this plan. Vital signs otherwise within acceptable limits. IV metoprolol 2.5 mg did improve the patient's heart rate to 100 and patient was loaded with 25 mg of oral metoprolol at this point. Home meds were reordered. Patient be given breathing treatments as well as steroids for his COPD. Patient was in agreement this plan. He was given nitroglycerin at this point his pressure did improve and his chest pain improved to approximately 3 out of 10. Second nitro tablet did improve his pain further and he was placed on Nitropaste. He was given 324 mg of aspirin. Patient's laboratory studies returned remarkable for a indeterminate troponin of 0.019. Patient is acutely intoxicated with alcohol 133. Patient began showing some signs of alcohol withdrawal and therefore was administered IV Ativan. Chest x-ray unremarkable. On reevaluation, A-fib with RVR has resolved. Vital signs within acceptable limits. Patient is feeling improved and is resting comfortably. He will be admitted at this time with cardiology consult. Troponins will be trended. Pulmonology will be consulted for his COPD. He was placed on [facility] protocol for alcohol withdrawals. Patient was in agreement this plan. I spoke with the admitting team [facility] DARLING Gomez who accepted the admission. Undiagnosed new problem with uncertain prognosis? @ -No Drug Therapy requiring intensive monitoring for toxicity (Heparin, Nitro, Insulin, Cardizem)? @ -No Were any procedures done? @ -No Diagnosis/symptom? @ -Alcohol intoxication, alcohol withdrawal, COPD exacerbation with chronic hypoxic respiratory failure, A-fib with RVR, chest pain Acute, or Chronic, or Acute on Chronic? @ -Acute Uncomplicated (without systemic symptoms) or Complicated (systemic symptoms)? @ -Complicated Side effects of treatment? @ -No Exacerbation, Progression, or Severe Exacerbation? @ -No Poses a threat to life or bodily function? How? (Chest pain, [place], CA, pneumonia, PE, COPD, DKA, ARF, appy, cholecystitis, CVA, Diverticulitis, Homicidal, Suicidal, threat to staff... and all critical care pts) @ -Yes - Lab Data Result diagrams: 11/24/23 19:22 11/24/23 19:22 Lab Results 11/24/23 11/24/23 11/24/23 Range/Units 19:22 19:22 19:22 WBC 8.4 (3.8-10.6) k/uL RBC 4.45 (4.30-5.90) m/uL Hgb 13.5 (13.0-17.5) gm/dL Hct 42.5 (39.0-53.0) % MCV 95.7 (80.0-100.0) fL MCH 30.3 (25.0-35.0) pg MCHC 31.7 (31.0-37.0) g/dL RDW 15.0 (11.5-15.5) % Plt Count 251 (150-450) k/uL MPV 8.0 Neutrophils % 87 % Lymphocytes % 5 % Monocytes % 5 % Eosinophils % 1 % Basophils % 0 % Neutrophils # 7.3 (1.3-7.7) k/uL Lymphocytes # 0.4 L (1.0-4.8) k/uL Monocytes # 0.4 (0-1.0) k/uL Eosinophils # 0.1 (0-0.7) k/uL Basophils # 0.0 (0-0.2) k/uL PT 9.5 L (10.0-12.5) sec INR 0.8 (<1.2) APTT 22.3 (22.0-30.0) sec Sodium 132 L (137-145) mmol/L Potassium 4.7 (3.5-5.1) mmol/L Chloride 92 L (98-107) mmol/L Carbon Dioxide 28 (22-30) mmol/L Anion Gap 12 mmol/L BUN 12 (9-20) mg/dL Creatinine 0.66 (0.66-1.25) mg/dL Est GFR (CKD-EPI)AfAm >90 (>60 ml/min/1.73 sqM) Est GFR (CKD-EPI)NonAf >90 (>60 ml/min/1.73 sqM) Glucose 129 H (74-99) mg/dL Calcium 8.7 (8.4-10.2) mg/dL Magnesium 2.0 (1.6-2.3) mg/dL Total Bilirubin 0.5 (0.2-1.3) mg/dL AST 112 H (17-59) U/L ALT 88 H (4-49) U/L Alkaline Phosphatase 86 (38-126) U/L Troponin I (0.000-0.034) ng/mL NT-Pro-B Natriuret Pep 38 pg/mL Total Protein 6.5 (6.3-8.2) g/dL Albumin 4.2 (3.5-5.0) g/dL Lipase 232 (23-300) U/L Serum Alcohol mg/dL 11/24/23 11/24/23 Range/Units 19:22 20:27 WBC (3.8-10.6) k/uL RBC (4.30-5.90) m/uL Hgb (13.0-17.5) gm/dL Hct (39.0-53.0) % MCV (80.0-100.0) fL MCH (25.0-35.0) pg MCHC (31.0-37.0) g/dL RDW (11.5-15.5) % Plt Count (150-450) k/uL MPV Neutrophils % % Lymphocytes % % Monocytes % % Eosinophils % % Basophils % % Neutrophils # (1.3-7.7) k/uL Lymphocytes # (1.0-4.8) k/uL Monocytes # (0-1.0) k/uL Eosinophils # (0-0.7) k/uL Basophils # (0-0.2) k/uL PT (10.0-12.5) sec INR (<1.2) APTT (22.0-30.0) sec Sodium (137-145) mmol/L Potassium (3.5-5.1) mmol/L Chloride (98-107) mmol/L Carbon Dioxide (22-30) mmol/L Anion Gap mmol/L BUN (9-20) mg/dL Creatinine (0.66-1.25) mg/dL Est GFR (CKD-EPI)AfAm (>60 ml/min/1.73 sqM) Est GFR (CKD-EPI)NonAf (>60 ml/min/1.73 sqM) Glucose (74-99) mg/dL Calcium (8.4-10.2) mg/dL Magnesium (1.6-2.3) mg/dL Total Bilirubin (0.2-1.3) mg/dL AST (17-59) U/L ALT (4-49) U/L Alkaline Phosphatase (38-126) U/L Troponin I 0.019 (0.000-0.034) ng/mL NT-Pro-B Natriuret Pep pg/mL Total Protein (6.3-8.2) g/dL Albumin (3.5-5.0) g/dL Lipase (23-300) U/L Serum Alcohol 133 mg/dL - EKG Data -: EKG Interpreted by Me EKG Comments: 12-lead Electrocardiogram Interpretation Note EKG was reviewed and interpreted by myself. 12-lead ECG performed at 1922 is interpreted by me as revealing A-fib with RVR at a rate of 130 beats per minute. [place] is normal. QRS durations 80 ms, QTc is 365 ms.. There were no ST or T wave abnormalities to suggest myocardial ischemia or injury. R wave progression across the precordium was satisfactory. By my interpretation this EKG is non-diagnostic for acute ischemia. 12-lead Electrocardiogram Interpretation Note EKG was reviewed and interpreted by myself. 12-lead ECG performed at 2029 is interpreted by me as revealing A-fib with RVR at a rate of 116 beats per minute. [place] is normal. QRS duration is 79 ms, QTc is 390 ms.. There were no ST or T wave abnormalities to suggest myocardial ischemia or injury. R wave progression across the precordium was satisfactory. By my interpretation this EKG is non-diagnostic for acute ischemia. Critical Care Time Critical Care Time: Yes Total Critical Care Time: 33 Disposition Clinical Impression: Alcohol withdrawal, COPD (chronic obstructive pulmonary disease), Chest pain, Chronic hypoxic respiratory failure, Atrial fibrillation with RVR Disposition: ADMITTED IP TO THIS HOSP Condition: Serious Referrals: Ashlyn Toro MD [Primary Care Provider] - 1-2 days Time of Disposition: 21:54
[2023-11-24] MEDS: methylPREDNISolone SOD SUCCI 125 MG/2 ML VIAL IV STA (22:36)
[2023-11-25] MEDS: IPRATROPIUM-ALBUTEROL 3 ML NEB INHALATION SCH ×2 (01:03→12:05)
[2023-11-25] MEDS: HEPARIN SODIUM,PORCINE 5,000 UNIT/ML 1 ML VIAL SQ SCH (01:11)
[2023-11-25 04:06] LABS: Basophils % (A) 0 %; Eosinophils % (A) 0 %; HCT 38.7 % (39.0-53.0); HGB 12.4 gm/dL (13.0-17.5); Lymphocytes # (A) 0.3 k/uL (1.0-4.8); Lymphocytes % (A) 5 %; MCH 31.1 pg (25.0-35.0); MCHC 32.2 g/dL (31.0-37.0); MCV 96.7 fL (80.0-100.0); Mean Platelet Volume 7.5; Monocytes # (A) 0.2 k/uL (0-1.0); Monocytes % (A) 3 %; Neutrophils # (A) 5.9 k/uL (1.3-7.7); Neutrophils % (A) 92 %; Platelet Count 222 k/uL (150-450); RDW 14.7 % (11.5-15.5); WBC 6.5 k/uL (3.8-10.6)
[2023-11-25 04:08] LABS: ALT 89 U/L (4-49); AST 110 U/L (17-59); African American GFR (CKD) >90 (>60 ml/min/1.73 sqM); Albumin 3.7 g/dL (3.5-5.0); Alkaline Phosphatase 108 U/L (38-126); Anion Gap 2 mmol/L; Blood Urea Nitrogen 13 mg/dL (9-20); Calcium 8.4 mg/dL (8.4-10.2); Carbon Dioxide 34 mmol/L (22-30); Chloride 96 mmol/L (98-107); Glucose 109 mg/dL (74-99); Non-African American GFR(CKD) >90 (>60 ml/min/1.73 sqM); Potassium 4.5 mmol/L (3.5-5.1); Sodium 132 mmol/L (137-145); Total Bilirubin 0.5 mg/dL (0.2-1.3); Total Protein 5.9 g/dL (6.3-8.2)
[2023-11-25] MEDS ORDERED: SYMBICORT 80-4.5 MCG INHALER INHALATION SCH (08:00)
[2023-11-25] MEDS: BUDESONIDE 1 MG/2 ML NEBU INHALATION SCH (08:20)
[2023-11-25] MEDS: FORMOTEROL FUMARATE 20 MCG/2 ML NEBU INHALATION SCH (08:20)
[2023-11-25] MEDS: GABAPENTIN 300 MG CAP PO PRN (08:49)
[2023-11-25] MEDS: methylPREDNISolone SOD SUCCI 125 MG/2 ML VIAL IV SCH (08:49)
[2023-11-25] MEDS: PANTOPRAZOLE 40 MG/10 ML VIAL IV SCH (08:49)
[2023-11-25] MEDS: ASPIRIN 81 MG PO SCH (08:56)
[2023-11-25] MEDS: METOPROLOL TARTRATE 25 MG TAB PO SCH (08:56)
[2023-11-25] MEDS ORDERED: methylPREDNISolone SOD SUCCI 40 MG/ML 1 ML VIAL IV SCH (09:00)
[2023-11-25] MEDS ORDERED: ISOSORBIDE MONONITRATE ER 15 MG TAB PO SCH (09:00)
--- NOTE | 2023-11-25 14:02 | P.CRDCN ---
History of Present Illness Consult date: 11/25/23 Consult reason: chest pain, atrial fibrillation (w RVR) History of present illness: This is a 63-year-old male patient of Dr. Singleton with past medical history of coronary artery disease with prior stenting of the RCA, PAD, hypertension, dyslipidemia, COPD, chronic hypoxic respiratory failure on O2 at 3 L nasal cannula, alcohol abuse.. We have been asked to evaluate the patient for chest pain and A-fib with RVR. Patient presented to the hospital with alcohol withdrawal, shortness of breath. Patient is asking for something to help with the shaking. Patient drinks alcohol on a daily basis. No complaints of chest pain at this time. Blood pressure 149/98, heart rate 75, pulse ox 92% on 3 L nasal cannula. EKG: Sinus rhythm x 2 Chest x-ray: No acute process. COPD. Laboratory studies: Hemoglobin 12.4, sodium 132, potassium 4.5, chloride 96, CO2 34, BUN 13 creatinine 0.3. Troponin negative x 3. AST 110, ALT 89. Alcohol level 133. Home cardiac medications: Aspirin 81 mg daily, atorvastatin 80 mg at bedtime, Imdur 50 mg daily, metoprolol tartrate 25 mg twice daily. Cardiac catheterization performed 12/17/2022 revealed patent stents in the RCA and LAD, mild to moderate disease of the OM1. Vascular surgery with left femoral posterior tibial bypass 03/21/2016 Echocardiogram performed 06/19/2022 normal EF, mild MR, dilated aorta at 3.9 cm. Holter monitor 05/11/2022 revealed PACs and sinus rhythm. Lexiscan stress test performed 03/17/2021 was normal. Review Of Systems: At the time of my exam: CONSTITUTIONAL: Denies fever or chills. HEENT: Denies blurred vision, vision changes, or eye pain. Denies hemoptysis CARDIOVASCULAR: Denies chest pain. Denies orthopnea. Denies PND. Denies palpitations RESPIRATORY: Denies shortness of breath. GASTROINTESTINAL: Denies abdominal pain. Denies nausea or vomiting. HEMATOLOGIC: Denies bleeding disorders. GENITOURINARY: Denies any blood in urine. SKIN: Denies puritis. Denies rash. Physical examination: Gen: This is a 63-year-old male in no acute distress. VS: reviewed HEENT: Head is atraumatic, normocephalic. Pupils equal, round. Sclerae is anicteric. NECK: Supple. No JVD. LUNGS: Diminished breath sounds bilaterally. No intercostal retractions. HEART: Regular rate and rhythm. No murmur. ABDOMEN: Soft No tenderness. EXTREMITIES: No pedal edema. No calf tenderness. NEUROLOGICAL: Patient is awake, alert and oriented x3. Assessment: Alcohol intoxication and withdrawal symptoms Acute coronary syndrome ruled out with negative troponins No sign of atrial fibrillation. Patient had EKG which read out as atrial fibrillation. But upon review, patient has clear P waves. History of coronary artery disease with prior stenting of the RCA PAD Hypertension Dyslipidemia COPD Chronic hypoxic respiratory failure on home O2 Plan: Resume patient's home cardiac medications Attending to address tremors Obtain 2-D echocardiogram and Doppler study to assess cardiac structure and fu nction Further recommendations to follow based upon clinical course Thank you kindly for this consultation. Nurse practitioner note has been reviewed, I agree with documented findings and plan of care. Patient was seen and examined. Past Medical History Past Medical History: Atrial Fibrillation, Coronary Artery Disease (CAD), COPD, Deep Vein Thrombosis (DVT), GERD/Reflux, GI Bleed, Hyperlipidemia, Hypertension, Osteoarthritis (OA), Pneumonia, Sleep Apnea/CPAP/BIPAP Additional Past Medical History / Comment(s): DVT- LEFT LEG, CPAP, pt uses 3 liters 02 when active and at night with cpap. pt has portable 02 History of Any Multi-Drug Resistant Organisms: MRSA Date of last positivie culture/infection: 03/01/22 MRSA MDRO Source:: Right Axilla Past Surgical History: Heart Catheterization With Stent, Orthopedic Surgery Additional Past Surgical History / Comment(s): ABD AORTOGRAM. Other SX: (construction accident balcony fell from building)HAD CRUSHING INJURY TO ANKLES HAD FUSION DONE JOSE ALBERTO, LT FOOT TOE PARTIAL AMP. CHEST TUBE FOR PNEUMOTHORAX. SURGERY TO REMOVE BLOOD CLOT FROM LEG. Bronchial washings/lavage, EGD. femoral bypass,heart stents x3 Past Anesthesia/Blood Transfusion Reactions: No Reported Reaction Additional Past Anesthesia/Blood Transfusion Reaction / Comment(s): Pt states he has never received blood. Date of Last Stent Placement:: 04/2021 Past Psychological History: No Psychological Hx Reported Smoking Status: Current every day smoker Past Alcohol Use History: None Reported Past Drug Use History: Marijuana - Past Family History Father Family Medical History: Coronary Artery Disease (CAD), Diabetes Mellitus, Myocardial Infarction ([place]), Pulmonary Embolus Additional Family Medical History / Comment(s): PE Mother Family Medical History: CVA/TIA Medications and Allergies Home Medications Medication Instructions Recorded Confirmed Type Albuterol Sulfate [Ventolin HFA] 2 puff INHALATION RT-Q6H PRN 11/13/14 11/25/23 History Metoprolol Tartrate 25 mg PO BID 07/27/15 11/25/23 History Albuterol Nebulized [Ventolin 2.5 mg INHALATION RT-TID 12/15/21 11/25/23 History Nebulized] Fluticasone/Umeclidin/Vilanter 1 puff INHALATION RT-DAILY 12/15/21 11/25/23 History [Trelegy Ellipta 100-62.5-25] Pantoprazole Sodium 20 mg PO DAILY 12/15/21 11/25/23 History Ibuprofen 800 mg PO Q8H PRN 12/10/22 11/25/23 History Atorvastatin Calcium [Lipitor] 80 mg PO HS 06/11/23 11/25/23 History Cholecalciferol [Vitamin D3 (25 50 mcg PO DAILY 06/11/23 11/25/23 History Mcg = 1000 Iu)] Aspirin EC [Ecotrin Low Dose] 81 mg PO DAILY 10/05/23 11/25/23 History ALPRAZolam [Xanax] 0.5 mg PO Q12H PRN #2 tab 10/11/23 11/25/23 Rx Folic Acid 1 mg PO DAILY tab 10/11/23 11/25/23 Rx Ipratropium-Albuterol Nebulize 3 ml INHALATION RT-Q4H PRN each 10/11/23 11/25/23 Rx [Duoneb 0.5 mg-3 mg/3 ml Soln] Thiamine [Vitamin B-1] 100 mg PO DAILY tab 10/11/23 11/25/23 Rx Gabapentin 600 mg PO TID PRN 11/16/23 11/25/23 History HYDROcodone/APAP 5-325MG [[place] 1 tab PO Q6H PRN 11/16/23 11/25/23 History 5-325] Ipratropium-Albuterol Nebulize 3 ml INHALATION RT-QID 11/16/23 11/25/23 History [Duoneb 0.5 mg-3 mg/3 ml Soln] Multivitamins, Thera [Multivitamin 1 tab PO DAILY 11/16/23 11/25/23 History (formulary)] hydrOXYzine HCL [Atarax] 10 mg PO TID PRN 11/16/23 11/25/23 History predniSONE 10 mg PO DAILY 11/16/23 11/25/23 History Isosorbide Mononitrate ER [Imdur] 15 mg PO DAILY 11/25/23 11/25/23 History guaiFENesin-DM 600/30MG [Mucinex 2 tab PO Q12HR 11/25/23 11/25/23 History Dm] Allergies Allergy/AdvReac Type Severity Reaction Status Date / Time No Known Allergies Allergy Verified 11/25/23 06:56 Physical Exam Vitals: Vital Signs Pulse Resp BP Pulse Ox 11/25/23 07:00 75 22 148/98 92 L 11/25/23 04:17 87 11/25/23 04:02 85 11/25/23 04:00 71 25 H 132/90 99 11/25/23 00:00 80 22 134/87 95 11/24/23 22:00 74 18 117/85 97 11/24/23 21:40 95 11/24/23 21:32 93 11/24/23 21:00 93 12 127/89 96 11/24/23 20:30 102 H 18 117/76 95 11/24/23 20:00 109 H 10 L 107/77 93 L 11/24/23 19:30 126 H 16 102/81 95 11/24/23 19:15 133 H 22 92/79 95 Intake and Output 11/24/23 11/25/23 11/25/23 22:59 06:59 14:59 Other: Weight 54.431 kg Results 11/25/23 03:17 11/25/23 03:17 Cardiac Enzymes 11/24/23 11/24/23 11/25/23 Range/Units 19:22 19:22 00:18 AST 112 H (17-59) U/L Troponin I 0.019 <0.012 (0.000-0.034) ng/mL 11/25/23 11/25/23 Range/Units 03:17 03:17 AST 110 H (17-59) U/L Troponin I <0.012 (0.000-0.034) ng/mL Coagulation 11/24/23 Range/Units 19:22 PT 9.5 L (10.0-12.5) sec APTT 22.3 (22.0-30.0) sec CBC 11/24/23 11/25/23 Range/Units 19:22 03:17 WBC 8.4 6.5 (3.8-10.6) k/uL RBC 4.45 4.00 L (4.30-5.90) m/uL Hgb 13.5 12.4 L (13.0-17.5) gm/dL Hct 42.5 38.7 L (39.0-53.0) % Plt Count 251 222 (150-450) k/uL Comprehensive Metabolic Panel 11/24/23 11/25/23 Range/Units 19:22 03:17 Sodium 132 L 132 L (137-145) mmol/L Potassium 4.7 4.5 (3.5-5.1) mmol/L Chloride 92 L 96 L (98-107) mmol/L Carbon Dioxide 28 34 H (22-30) mmol/L BUN 12 13 (9-20) mg/dL Creatinine 0.66 0.31 L (0.66-1.25) mg/dL Glucose 129 H 109 H (74-99) mg/dL Calcium 8.7 8.4 (8.4-10.2) mg/dL AST 112 H 110 H (17-59) U/L ALT 88 H 89 H (4-49) U/L Alkaline Phosphatase 86 108 (38-126) U/L Total Protein 6.5 5.9 L (6.3-8.2) g/dL Albumin 4.2 3.7 (3.5-5.0) g/dL Current Medications Generic Name Dose Route Start Last Admin Trade Name Freq PRN Reason Stop Dose Admin Albuterol/Ipratropium 3 ml 11/25/23 12:00 Ipratropium-Albuterol 3 Ml Neb INHALATION RT-QID [facility] Aspirin 81 mg 11/25/23 09:00 Aspirin 81 Mg PO DAILY [facility] Atorvastatin Calcium 80 mg 11/25/23 21:00 Atorvastatin 80 Mg Tab PO HS [facility] Budesonide 1 mg 11/25/23 08:00 Budesonide 1 Mg/2 Ml Nebu INHALATION RT-BID PRIYANKA Formoterol Fumarate 20 mcg 11/25/23 08:00 Formoterol Fumarate 20 Mcg/2 Ml Nebu INHALATION RT-BID PRIYANKA Gabapentin 600 mg 11/24/23 22:20 Gabapentin 300 Mg Cap PO TID PRN nerve pain Heparin Sodium (Porcine) 5,000 unit 11/25/23 00:00 11/25/23 01:11 Heparin Sodium,Porcine 5,000 Unit/Ml 1 Ml Vial SQ 5,000 unit Q8HR PRIYANKA Administration Sodium Chloride 1,000 mls @ 100 mls/hr 11/24/23 22:15 11/24/23 22:37 Saline 0.9% IV 11/25/23 08:14 100 mls/hr .Q10H STA Administration Lorazepam 1 mg 11/24/23 20:26 Lorazepam 2 Mg/Ml Inj IV Q1HR PRN CIWA 10 to 15 Lorazepam 1 mg 11/24/23 20:26 11/24/23 21:45 Lorazepam 2 Mg/Ml Inj IV 1 mg Q2HR PRN Administration CIWA 8 or 9 Lorazepam 2 mg 11/24/23 20:26 Lorazepam 2 Mg/Ml Inj IV 11/26/23 20:26 Q10M PRN CIWA 16 or higher Methylprednisolone Sodium Succinate 60 mg 11/25/23 12:00 Methylprednisolone Sod Succi 40 Mg/Ml 1 Ml Vial IV Q6HR [facility] Metoprolol Tartrate 25 mg 11/25/23 09:00 Metoprolol Tartrate 25 Mg Tab PO BID PRIYANKA Naloxone HCl 0.2 mg 11/24/23 21:54 Naloxone 0.4 Mg/Ml 1 Ml Vial IV Q2M PRN Opioid Reversal Nitroglycerin 0.5 inch 11/24/23 21:00 11/24/23 21:08 Nitroglycerin Oint 1 Inch/Gm Packet TOPICAL 0.5 inch Q8HR PRIYANKA Administration Ondansetron HCl 4 mg 11/24/23 21:54 Ondansetron 4 Mg/2 Ml Vial IVP Q8HR PRN Nausea And Vomiting Pantoprazole Sodium 40 mg 11/25/23 09:00 Pantoprazole 40 Mg/10 Ml Vial IV DAILY PRIYANKA Intake and Output 11/24/23 11/25/23 11/25/23 22:59 06:59 14:59 Other: Weight 54.431 kg 11/25/23 03:17 11/25/23 03:17
--- NOTE | 2023-11-25 14:41 | P.HPIM ---
History of Present Illness H&P Date: 11/25/23 History of present illness; patient 63-year-old gentleman with past medical his significant for COPD, coronary disease, A-fib who presented to the ER because of chest pain. Patient stated that he was all right 1 day back when he started experiencing chest pain that was pressure-like, occasional left-sided, nonradiating, no aggravating or relieving factors associated with chest pain. Patient history of COPD but noticed that she was getting more short of breath. Patient denied any orthopnea or PND. There was no complaint of swelling of feet. Patient denies any palpitations. Patient also history of alcohol abuse and admitted with drinking a lot. There is no complaint of fever or chills. Because of the symptoms, patient went to the ER Initial lab work done in the ER showed WBC 8.4, hemoglobin 13.5, platelet count 251, sodium 132, potassium 4.7, BUN 12, creatinine 0.66, glucose 129, magnesium 2, AST 112, ALT 88 serum alcohol level 133 EKG done in the ER showed heart rate of 116, irregular in rhythm, no ST segment elevation or depression seen, no T-wave inversions seen. Chest x-ray done in the ER no acute cardiopulmonary process Patient in the ER was found to be in A-fib with RVR, was given IV Lopressor and fluid resuscitation. Patient was also intoxicated with a serum alcohol level of 133. Patient admitted to internal medicine service REVIEW OF SYSTEMS: CONSTITUTIONAL: No fever, no malaise, no fatigue. HEENT: No recent visual problems or hearing problems. Denied any sore throat. CARDIOVASCULAR: As mentioned above PULMONARY: As mentioned above GASTROINTESTINAL: No diarrhea, no nausea, no vomiting, no abdominal pain. NEUROLOGICAL: No headaches, no weakness, no numbness. HEMATOLOGICAL: Denies any bleeding or petechiae. GENITOURINARY: Denies any burning micturition, frequency, or urgency. MUSCULOSKELETAL/RHEUMATOLOGICAL: Denies any joint pain, swelling, or any muscle pain. ENDOCRINE: Denies any polyuria or polydipsia. The rest of the 14-point review of systems is negative. PHYSICAL EXAMINATION: GENERAL: The patient is alert and oriented x3, not in any acute distress. Well developed, well nourished. HEENT: Pupils are round and equally reacting to light. EOMI. No scleral icterus. No conjunctival pallor. Normocephalic, atraumatic. No pharyngeal erythema. No thyromegaly. CARDIOVASCULAR: S1 and S2 present. No murmurs, rubs, or gallops. PULMONARY: Chest is clear to auscultation, no wheezing or crackles. ABDOMEN: Soft, nontender, nondistended, normoactive bowel sounds. No palpable organomegaly. MUSCULOSKELETAL: No joint swelling or deformity. EXTREMITIES: No cyanosis, clubbing, or pedal edema. NEUROLOGICAL: Gross neurological examination did not reveal any focal deficits. SKIN: No rashes. Assessment and plan Chest pain A-fib with RVR COPD exacerbation Alcohol abuse Impending alcohol detox Monitor vital signs Monitor CBC Monitor CMP Continue telemetry monitoring Trend troponins. Ordered 2D echo Resume Lopressor Start IV fluids Start breathing treatments Start IV Solu-Medrol 40 mg Q6 Start CIWA protocol Consult cardiology Consult pulmonology Labs and medication were reviewed.. Continue same treatment. Continue with symptomatic treatment. Resume home medication. Monitor labs and vitals. DVT and GI prophylaxis. Further recommendations as per clinical course of the patient Dictation was produced using [employer] dictation software. please excuse any grammatical, word or spelling errors. Past Medical History Past Medical History: Atrial Fibrillation, Coronary Artery Disease (CAD), COPD, Deep Vein Thrombosis (DVT), GERD/Reflux, GI Bleed, Hyperlipidemia, Hypertension, Osteoarthritis (OA), Pneumonia, Sleep Apnea/CPAP/BIPAP Additional Past Medical History / Comment(s): DVT- LEFT LEG, CPAP, pt uses 3 liters 02 when active and at night with cpap. pt has portable 02 History of Any Multi-Drug Resistant Organisms: MRSA Date of last positivie culture/infection: 03/01/22 MRSA MDRO Source:: Right Axilla Past Surgical History: Heart Catheterization With Stent, Orthopedic Surgery Additional Past Surgical History / Comment(s): ABD AORTOGRAM. Other SX: (construction accident balcony fell from building)HAD CRUSHING INJURY TO ANKLES HAD FUSION DONE JOSE ALBERTO, LT FOOT TOE PARTIAL AMP. CHEST TUBE FOR PNEUMOTHORAX. SURGERY TO REMOVE BLOOD CLOT FROM LEG. Bronchial washings/lavage, EGD. femoral bypass,heart stents x3 Past Anesthesia/Blood Transfusion Reactions: No Reported Reaction Additional Past Anesthesia/Blood Transfusion Reaction / Comment(s): Pt states he has never received blood. Date of Last Stent Placement:: 04/2021 Past Psychological History: No Psychological Hx Reported Smoking Status: Current every day smoker Past Alcohol Use History: None Reported Past Drug Use History: Marijuana - Past Family History Father Family Medical History: Coronary Artery Disease (CAD), Diabetes Mellitus, Myocardial Infarction ([place]), Pulmonary Embolus Additional Family Medical History / Comment(s): PE Mother Family Medical History: CVA/TIA Medications and Allergies Home Medications Medication Instructions Recorded Confirmed Type Albuterol Sulfate [Ventolin HFA] 2 puff INHALATION RT-Q6H PRN 11/13/14 11/25/23 History Metoprolol Tartrate 25 mg PO BID 07/27/15 11/25/23 History Albuterol Nebulized [Ventolin 2.5 mg INHALATION RT-TID 12/15/21 11/25/23 History Nebulized] Fluticasone/Umeclidin/Vilanter 1 puff INHALATION RT-DAILY 12/15/21 11/25/23 History [Trelegy Ellipta 100-62.5-25] Pantoprazole Sodium 20 mg PO DAILY 12/15/21 11/25/23 History Ibuprofen 800 mg PO Q8H PRN 12/10/22 11/25/23 History Atorvastatin Calcium [Lipitor] 80 mg PO HS 06/11/23 11/25/23 History Cholecalciferol [Vitamin D3 (25 50 mcg PO DAILY 06/11/23 11/25/23 History Mcg = 1000 Iu)] Aspirin EC [Ecotrin Low Dose] 81 mg PO DAILY 10/05/23 11/25/23 History ALPRAZolam [Xanax] 0.5 mg PO Q12H PRN #2 tab 10/11/23 11/25/23 Rx Folic Acid 1 mg PO DAILY tab 10/11/23 11/25/23 Rx Ipratropium-Albuterol Nebulize 3 ml INHALATION RT-Q4H PRN each 10/11/23 11/25/23 Rx [Duoneb 0.5 mg-3 mg/3 ml Soln] Thiamine [Vitamin B-1] 100 mg PO DAILY tab 10/11/23 11/25/23 Rx Gabapentin 600 mg PO TID PRN 11/16/23 11/25/23 History HYDROcodone/APAP 5-325MG [[place] 1 tab PO Q6H PRN 11/16/23 11/25/23 History 5-325] Ipratropium-Albuterol Nebulize 3 ml INHALATION RT-QID 11/16/23 11/25/23 History [Duoneb 0.5 mg-3 mg/3 ml Soln] Multivitamins, Thera [Multivitamin 1 tab PO DAILY 11/16/23 11/25/23 History (formulary)] hydrOXYzine HCL [Atarax] 10 mg PO TID PRN 11/16/23 11/25/23 History predniSONE 10 mg PO DAILY 11/16/23 11/25/23 History Isosorbide Mononitrate ER [Imdur] 15 mg PO DAILY 11/25/23 11/25/23 History guaiFENesin-DM 600/30MG [Mucinex 2 tab PO Q12HR 11/25/23 11/25/23 History Dm] Allergies Allergy/AdvReac Type Severity Reaction Status Date / Time No Known Allergies Allergy Verified 11/25/23 06:56 Physical Exam Vitals: Vital Signs Pulse Resp BP Pulse Ox 11/25/23 08:39 84 11/25/23 08:30 84 11/25/23 08:21 81 97 11/25/23 07:00 75 22 148/98 92 L 11/25/23 04:17 87 11/25/23 04:02 85 11/25/23 04:00 71 25 H 132/90 99 11/25/23 00:00 80 22 134/87 95 11/24/23 22:00 74 18 117/85 97 11/24/23 21:40 95 11/24/23 21:32 93 11/24/23 21:00 93 12 127/89 96 11/24/23 20:30 102 H 18 117/76 95 11/24/23 20:00 109 H 10 L 107/77 93 L 11/24/23 19:30 126 H 16 102/81 95 11/24/23 19:15 133 H 22 92/79 95 Intake and Output 11/24/23 11/25/23 11/25/23 22:59 06:59 14:59 Other: Weight 54.431 kg Results CBC & Chem 7: 11/25/23 03:17 11/25/23 03:17 Labs: Abnormal Lab Results - Last 24 Hours (Table) 11/24/23 11/24/23 11/24/23 Range/Units 19:22 19:22 19:22 RBC (4.30-5.90) m/uL Hgb (13.0-17.5) gm/dL Hct (39.0-53.0) % Lymphocytes # 0.4 L (1.0-4.8) k/uL PT 9.5 L (10.0-12.5) sec Sodium 132 L (137-145) mmol/L Chloride 92 L (98-107) mmol/L Carbon Dioxide (22-30) mmol/L Creatinine (0.66-1.25) mg/dL Glucose 129 H (74-99) mg/dL AST 112 H (17-59) U/L ALT 88 H (4-49) U/L Total Protein (6.3-8.2) g/dL 11/25/23 11/25/23 Range/Units 03:17 03:17 RBC 4.00 L (4.30-5.90) m/uL Hgb 12.4 L (13.0-17.5) gm/dL Hct 38.7 L (39.0-53.0) % Lymphocytes # 0.3 L (1.0-4.8) k/uL PT (10.0-12.5) sec Sodium 132 L (137-145) mmol/L Chloride 96 L (98-107) mmol/L Carbon Dioxide 34 H (22-30) mmol/L Creatinine 0.31 L (0.66-1.25) mg/dL Glucose 109 H (74-99) mg/dL AST 110 H (17-59) U/L ALT 89 H (4-49) U/L Total Protein 5.9 L (6.3-8.2) g/dL
--- NOTE | 2023-11-25 15:36 | P.CNPUL ---
History of Present Illness Consult date: 11/25/23 Requesting physician: Og English Reason for consult: dyspnea, chest pain, COPD History of present illness: 64-year-old man with past medical history of COPD coronary artery disease and atrial fibrillation presents to the ER because of dyspnea and chest pain. Scribes the chest pain as pressure-like, non-radiating and without any alleviating or aggravating. factors. He states that his COPD is managed at home with Trelegy, albuterol, rescue inhaler and DuoNebs. Patient states he currently smokes half a pack a day for 20 years. He had quit a year ago but recently started smoking 1 month ago. Satting well on 3 L nasal cannula. X-ray shows flattening of the diaphragm with increased lucency of the lungs consistent with COPD changes. Patient states he drinks 12 cans of beer a day. He was sober for 12 years but began drinking again 6 weeks ago. He states that he thinks he is also having withdrawal. Serum alcohol was 133. Labs show white count 6.5, hemoglobin 12.4, hematocrit 38.7, platelets 222. Sodium is 132 potassium 4.5 chloride 96 carbon dioxide 34 BUN 13 creatinine 1.31 and glucose 109. Liver function test show AST 112 and ALT 88. Troponin was 0.019 and repeat was put less than 0.012. NT proBNP was 38. EKG showed A-fib with RVR. Review of Systems CONSTITUTIONAL: No fever, no malaise, no fatigue. HEENT: No recent visual problems or hearing problems. Denied any sore throat. CARDIOVASCULAR: As mentioned above PULMONARY: As mentioned above GASTROINTESTINAL: No diarrhea, no nausea, no vomiting, no abdominal pain. NEUROLOGICAL: No headaches, no weakness, no numbness. HEMATOLOGICAL: Denies any bleeding or petechiae. GENITOURINARY: Denies any burning micturition, frequency, or urgency. MUSCULOSKELETAL/RHEUMATOLOGICAL: Denies any joint pain, swelling, or any muscle pain. ENDOCRINE: Denies any polyuria or polydipsia. Past Medical History Past Medical History: Atrial Fibrillation, Coronary Artery Disease (CAD), COPD, Deep Vein Thrombosis (DVT), GERD/Reflux, GI Bleed, Hyperlipidemia, Hypertension, Osteoarthritis (OA), Pneumonia, Sleep Apnea/CPAP/BIPAP Additional Past Medical History / Comment(s): DVT- LEFT LEG, CPAP, pt uses 3 liters 02 when active and at night with cpap. pt has portable 02 History of Any Multi-Drug Resistant Organisms: MRSA Date of last positivie culture/infection: 03/01/22 MRSA MDRO Source:: Right Axilla Past Surgical History: Heart Catheterization With Stent, Orthopedic Surgery Additional Past Surgical History / Comment(s): ABD AORTOGRAM. Other SX: (construction accident balcony fell from building)HAD CRUSHING INJURY TO ANKLES HAD FUSION DONE JOSE ALBERTO, LT FOOT TOE PARTIAL AMP. CHEST TUBE FOR PNEUMOTHORAX. SURGERY TO REMOVE BLOOD CLOT FROM LEG. Bronchial washings/lavage, EGD. femoral bypass,heart stents x3 Past Anesthesia/Blood Transfusion Reactions: No Reported Reaction Additional Past Anesthesia/Blood Transfusion Reaction / Comment(s): Pt states he has never received blood. Date of Last Stent Placement:: 04/2021 Past Psychological History: No Psychological Hx Reported Smoking Status: Current every day smoker Past Alcohol Use History: Abuse Past Drug Use History: Marijuana - Past Family History Father Family Medical History: Coronary Artery Disease (CAD), Diabetes Mellitus, Myocardial Infarction ([place]), Pulmonary Embolus Additional Family Medical History / Comment(s): PE Mother Family Medical History: CVA/TIA Medications and Allergies Home Medications Medication Instructions Recorded Confirmed Type Albuterol Sulfate [Ventolin HFA] 2 puff INHALATION RT-Q6H PRN 11/13/14 11/25/23 History Metoprolol Tartrate 25 mg PO BID 07/27/15 11/25/23 History Albuterol Nebulized [Ventolin 2.5 mg INHALATION RT-TID 12/15/21 11/25/23 History Nebulized] Fluticasone/Umeclidin/Vilanter 1 puff INHALATION RT-DAILY 12/15/21 11/25/23 History [Trelegy Ellipta 100-62.5-25] Pantoprazole Sodium 20 mg PO DAILY 12/15/21 11/25/23 History Ibuprofen 800 mg PO Q8H PRN 12/10/22 11/25/23 History Atorvastatin Calcium [Lipitor] 80 mg PO HS 06/11/23 11/25/23 History Cholecalciferol [Vitamin D3 (25 50 mcg PO DAILY 06/11/23 11/25/23 History Mcg = 1000 Iu)] Aspirin EC [Ecotrin Low Dose] 81 mg PO DAILY 10/05/23 11/25/23 History ALPRAZolam [Xanax] 0.5 mg PO Q12H PRN #2 tab 10/11/23 11/25/23 Rx Folic Acid 1 mg PO DAILY tab 10/11/23 11/25/23 Rx Ipratropium-Albuterol Nebulize 3 ml INHALATION RT-Q4H PRN each 10/11/23 11/25/23 Rx [Duoneb 0.5 mg-3 mg/3 ml Soln] Thiamine [Vitamin B-1] 100 mg PO DAILY tab 10/11/23 11/25/23 Rx Gabapentin 600 mg PO TID PRN 11/16/23 11/25/23 History HYDROcodone/APAP 5-325MG [[place] 1 tab PO Q6H PRN 11/16/23 11/25/23 History 5-325] Ipratropium-Albuterol Nebulize 3 ml INHALATION RT-QID 11/16/23 11/25/23 History [Duoneb 0.5 mg-3 mg/3 ml Soln] Multivitamins, Thera [Multivitamin 1 tab PO DAILY 11/16/23 11/25/23 History (formulary)] hydrOXYzine HCL [Atarax] 10 mg PO TID PRN 11/16/23 11/25/23 History predniSONE 10 mg PO DAILY 11/16/23 11/25/23 History Isosorbide Mononitrate ER [Imdur] 15 mg PO DAILY 11/25/23 11/25/23 History guaiFENesin-DM 600/30MG [Mucinex 2 tab PO Q12HR 11/25/23 11/25/23 History Dm] Allergies Allergy/AdvReac Type Severity Reaction Status Date / Time No Known Allergies Allergy Verified 11/25/23 06:56 Physical Exam Vitals: Vital Signs Pulse Resp BP Pulse Ox 11/25/23 13:00 90 20 122/81 97 11/25/23 12:16 80 11/25/23 12:06 80 11/25/23 08:39 84 11/25/23 08:30 84 11/25/23 08:21 81 97 11/25/23 07:00 75 22 148/98 92 L 11/25/23 04:17 87 11/25/23 04:02 85 11/25/23 04:00 71 25 H 132/90 99 11/25/23 00:00 80 22 134/87 95 11/24/23 22:00 74 18 117/85 97 11/24/23 21:40 95 11/24/23 21:32 93 11/24/23 21:00 93 12 127/89 96 11/24/23 20:30 102 H 18 117/76 95 11/24/23 20:00 109 H 10 L 107/77 93 L 11/24/23 19:30 126 H 16 102/81 95 11/24/23 19:15 133 H 22 92/79 95 Intake and Output 11/24/23 11/25/23 11/25/23 22:59 06:59 14:59 Other: Weight 54.431 kg GENERAL EXAM: 63-year-old white male with tremors likely due to alcohol withdrawal HEAD: Normocephalic and atraumatic EYES: Within normal NOSE: Clear with pink turbinates. THROAT: No erythema or exudates. Dry mucous membranes. NECK: No masses, no JVD. Subclavian central line is noted. CHEST: barrel chest LUNGS: Notable expiratory wheezing bilaterally CVS: S1 and S2 normal with no soft systolic murmur, regular rhythm. No extra heart sounds ABDOMEN: Abdomen flat, active bowel sounds, no hepatosplenomegaly, no guarding or rigidity. SKIN: No rashes EXTREMITIES: no clubbing, no cyanosis, no edema. Results - Laboratory Findings CBC and BMP: 11/25/23 03:17 11/25/23 03:17 PT/INR, D-dimer PT 9.5 sec (10.0-12.5) L 11/24/23 19:22 INR 0.8 (<1.2) 11/24/23 19:22 Abnormal lab findings: Abnormal Labs 11/24/23 11/24/23 11/24/23 19:22 19:22 19:22 RBC Hgb Hct Lymphocytes # 0.4 L PT 9.5 L Sodium 132 L Chloride 92 L Carbon Dioxide Creatinine Glucose 129 H AST 112 H ALT 88 H Total Protein 11/25/23 11/25/23 03:17 03:17 RBC 4.00 L Hgb 12.4 L Hct 38.7 L Lymphocytes # 0.3 L PT Sodium 132 L Chloride 96 L Carbon Dioxide 34 H Creatinine 0.31 L Glucose 109 H AST 110 H ALT 89 H Total Protein 5.9 L Assessment and Plan Assessment: COPD Exacerbation Chest Pain Atrial fibrillation with RVR Alcohol Withdrawal Plan IV Solu-Medrol 40mg Q6 Duonebs Pulmicort Perforomist Trend troponins Continue Telemetry monitoring Lopressor CIWA Protocol Ativan & Gabapentin Continue IVF Continue home meds DVT Prophylaxis: Heparin GI Prophylaxis: Protonix PATIENT IS FULL CODE STATUS Time with Patient: Greater than 30
[2023-11-25] MEDS: NICOTINE 21MG/24HR PATCH TRANSDERM SCH (16:18)
[2023-11-25 20:55] LABS: Glucose,Whole Blood 131 mg/dL (70-110)
[2023-11-25] MEDS: ATORVASTATIN 80 MG TAB PO SCH (21:21)
[2023-11-25] MEDS ORDERED: ALPRAZolam 0.5 MG TAB PO PRN (21:42)
[2023-11-25] MEDS ORDERED: ALBUTEROL NEBULIZED 2.5 MG/3 ML INHALATION PRN (21:42)
[2023-11-26] MEDS: HYDROcodone/APAP 5-325MG 1 EACH TAB PO PRN (02:51)
[2023-11-26] MEDS: ONDANSETRON 4 MG/2 ML VIAL IVP PRN (02:52)
[2023-11-26 06:01] LABS: Glucose,Whole Blood 126 mg/dL (70-110)
[2023-11-26] MEDS: INSULIN ASPART (NovoLOG) 100 UNIT/ML VIAL SQ SCH (06:05)
[2023-11-26] MEDS: CHOLECALCIFEROL 25 MCG (1000 IU) TABLET PO SCH (08:28)
[2023-11-26] MEDS: FOLIC ACID 1 MG TAB PO SCH (08:29)
[2023-11-26] MEDS: THIAMINE 100 MG TAB PO SCH (08:29)
[2023-11-26] MEDS: guaiFENesin-DM 600/30MG 1 EACH TAB.ER.12H PO SCH (08:30)
[2023-11-26] MEDS: ALBUTEROL NEBULIZED 2.5 MG/3 ML INHALATION SCH (08:43)
[2023-11-26] MEDS: IPRATROPIUM-ALBUTEROL 3 ML NEB INHALATION SCH (08:43)
[2023-11-26] MEDS ORDERED: ISOSORBIDE MONONITRATE ER 30 MG TAB.ER.24H PO SCH (09:00)
[2023-11-26] MEDS ORDERED: PANTOPRAZOLE SODIUM 20 MG PO SCH (09:00)
--- NOTE | 2023-11-26 11:20 | CDI ---
Documentation Clarification Form Date: 11/26/2023 From: Jeanette Shields Phone: [phone] Admit Date: 11/24/2023 09:54:00 PM Patient Name: Eron Escalante Visit Number: [id number] Discharge Date: ATTENTION: The Clinical Documentation Specialists (CDI) and [facility] Coding Staff appreciate your assistance in clarifying documentation. Please respond to the clarification below the line at the bottom and electronically sign. The CDI & [facility] Coding staff will review the response and follow-up if needed. Please note: Queries are made part of the Legal Health Record. If you have any questions, please contact the author of this message via ITS. Dr. Ryan Buck: Patient has a documented BMI of 17.1 on 11/23. Additional clarification is requested. History/Risk Factors: 63-year-old male with a history of alcohol abuse, A-fib, CAD, COPD on 3liters nasal cannula, HTN who presents with chest pain and exacerbation of COPD and alcohol withdrawal Clinical Indicators: 11/23 Patients weight is 54.1kg Patients height is 5ft 10in Calculated BMI is 17.1 11/23-11/24 Total Protein: 6.5, 5.9 Treatments: Healthy Heart diet Please clarify, is there is an additional diagnosis that is clinically appropriate for this patient? [ x ] Underweight [ ] No additional diagnosis/not clinically significant [ ] Other, please specify [ ] Unable to determine MTDD
[2023-11-26 11:43] LABS: Glucose,Whole Blood 121 mg/dL (70-110)
--- NOTE | 2023-11-26 12:09 | P.PN ---
Subjective Progress Note Date: 11/26/23 Principal diagnosis: 64-year-old man with past medical history of COPD coronary artery disease and atrial fibrillation presents to the ER because of dyspnea and chest pain. Scribes the chest pain as pressure-like, non-radiating and without any alleviating or aggravating. factors. He states that his COPD is managed at home with Trelegy, albuterol, rescue inhaler and DuoNebs. Patient states he currently smokes half a pack a day for 20 years. He had quit a year ago but recently started smoking 1 month ago. Satting well on 3 L nasal cannula. X-ray shows flattening of the diaphragm with increased lucency of the lungs consistent with COPD changes. Patient states he drinks 12 cans of beer a day. He was sober for 12 years but began drinking again 6 weeks ago. He states that he thinks he is also having withdrawal. Serum alcohol was 133. Labs show white count 6.5, hemoglobin 12.4, hematocrit 38.7, platelets 222. Sodium is 132 potassium 4.5 chloride 96 carbon dioxide 34 BUN 13 creatinine 1.31 and glucose 109. Liver function test show AST 112 and ALT 88. Troponin was 0.019 and repeat was put less than 0.012. NT proBNP was 38. EKG showed A-fib with RVR. Patient is seen today November 26, 2023 in room 384 resting comfortably in bed in no apparent distress. He says that his breathing is improved on the breathing treatments. He is satting 97% on 4 L nasal cannula. As per the nurse his chest pain is well-controlled on [place] 53 25 every 6 hours. He did not have any overnight events but did receive Ativan for his alcohol withdrawal. He states that he has a good appetite and denies any other complaints at this time. He remains on 10ml/hr of 0.9 saline. Objective - Vital Signs Vital signs: Vital Signs Temp 97.5 F L 11/26/23 04:00 Pulse 84 11/26/23 08:42 Resp 18 11/26/23 08:21 BP 135/89 11/26/23 08:21 Pulse Ox 97 11/26/23 08:21 FiO2 Intake & Output 11/25/23 11/26/23 11/26/23 18:59 06:59 18:59 Intake Total 10 118 Output Total 1275 350 Balance -1265 -232 Weight 54.1 kg Intake: IV 10 0.9 10 Oral 118 Output: Urine 1275 350 Other: Voiding Method Urinal # Voids 1 - Exam GENERAL EXAM: 63-year-old white male with tremors likely due to alcohol withdrawal HEAD: Normocephalic and atraumatic EYES: Within normal NOSE: Clear with pink turbinates. THROAT: No erythema or exudates. Dry mucous membranes. NECK: No masses, no JVD. Subclavian central line is noted. CHEST: barrel chest LUNGS: diminished breath sounds bilaterally CVS: S1 and S2 normal with no soft systolic murmur, regular rhythm. No extra heart sounds ABDOMEN: Abdomen flat, active bowel sounds, no hepatosplenomegaly, no guarding or rigidity. SKIN: No rashes EXTREMITIES: no clubbing, no cyanosis, no edema. - Additional findings Additional findings: LINES: L. forearm PIV placed on 11-25 - Labs CBC & Chem 7: 11/25/23 03:17 11/25/23 03:17 Labs: Abnormal Lab Results - Last 24 Hours (Table) 11/25/23 11/26/23 11/26/23 Range/Units 20:53 06:00 11:42 POC Glucose (mg/dL) 131 H 126 H 121 H (70-110) mg/dL Assessment and Plan Assessment: COPD Exacerbation Chest Pain Atrial fibrillation with RVR Alcohol Withdrawal Plan Continue to monitor for alcohol withdrawal Continue medications as ordered to improve respiratory status IV Solu-Medrol 40mg Q6 Duonebs Pulmicort Perforomist Trend troponins Continue Telemetry monitoring Lopressor CIWA Protocol Ativan & Gabapentin Continue IVF Continue home meds DVT Prophylaxis: Heparin GI Prophylaxis: Protonix PATIENT IS FULL CODE STATUS
--- NOTE | 2023-11-26 13:41 | P.PN ---
Subjective Progress Note Date: 11/26/23 Consult reason: chest pain, atrial fibrillation (w RVR) History of present illness: This is a 63-year-old male patient of Dr. Singleton with past medical history of coronary artery disease with prior stenting of the RCA, PAD, hypertension, dyslipidemia, COPD, chronic hypoxic respiratory failure on O2 at 3 L nasal cannula, alcohol abuse.. We have been asked to evaluate the patient for chest pain and A-fib with RVR. Patient presented to the hospital with alcohol withdrawal, shortness of breath. Patient is asking for something to help with the shaking. Patient drinks alcohol on a daily basis. No complaints of chest pain at this time. Blood pressure 149/98, heart rate 75, pulse ox 92% on 3 L nasal cannula. EKG: Sinus rhythm x 2 Chest x-ray: No acute process. COPD. Laboratory studies: Hemoglobin 12.4, sodium 132, potassium 4.5, chloride 96, CO2 34, BUN 13 creatinine 0.3. Troponin negative x 3. AST 110, ALT 89. Alcohol level 133. Home cardiac medications: Aspirin 81 mg daily, atorvastatin 80 mg at bedtime, Imdur 50 mg daily, metoprolol tartrate 25 mg twice daily. Cardiac catheterization performed 12/17/2022 revealed patent stents in the RCA and LAD, mild to moderate disease of the OM1. Vascular surgery with left femoral posterior tibial bypass 03/21/2016 Echocardiogram performed 06/19/2022 normal EF, mild MR, dilated aorta at 3.9 cm. Holter monitor 05/11/2022 revealed PACs and sinus rhythm. Lexiscan stress test performed 03/17/2021 was normal. 11/25 Patient is seen today in follow-up. No new concerns. No chest pain. Telemetry is sinus rhythm. Heart rate is in the 80s, blood pressure 135/89, pulse ox 97% on 4 L nasal cannula. Echocardiogram reveals Physical examination: Gen: This is a 63-year-old male in no acute distress. VS: reviewed HEENT: Head is atraumatic, normocephalic. Pupils equal, round. Sclerae is anicteric. NECK: Supple. No JVD. LUNGS: Diminished breath sounds bilaterally. No intercostal retractions. HEART: Regular rate and rhythm. No murmur. ABDOMEN: Soft No tenderness. EXTREMITIES: No pedal edema. No calf tenderness. NEUROLOGICAL: Patient is awake, alert and oriented x3. Assessment: Alcohol intoxication and withdrawal symptoms Acute coronary syndrome ruled out with negative troponins No sign of atrial fibrillation. Patient had EKG which read out as atrial fibrillation. But upon review, patient has clear P waves. History of coronary artery disease with prior stenting of the RCA PAD Hypertension Dyslipidemia COPD Chronic hypoxic respiratory failure on home O2 Plan: Continue patient's home cardiac medications No further cardiac workup warranted at this time. Cardiology will sign off and follow on an as-needed basis. Please reconsult for any new concerns. At the time of discharge, patient may follow-up with Dr. Singleton in 1 to 2 weeks. Nurse practitioner note has been reviewed, I agree with documented findings and plan of care. Patient was seen and examined. Objective - Vital Signs Vital signs: Vital Signs Temp 97.5 F L 11/26/23 04:00 Pulse 84 11/26/23 08:42 Resp 18 11/26/23 08:21 BP 135/89 11/26/23 08:21 Pulse Ox 97 11/26/23 08:21 FiO2 Intake & Output 11/25/23 11/26/23 11/26/23 18:59 06:59 18:59 Intake Total 10 Output Total 1275 Balance -1265 Weight 54.1 kg Intake: IV 10 0.9 10 Output: Urine 1275 Other: Voiding Method Urinal # Voids 1 - Labs CBC & Chem 7: 11/25/23 03:17 11/25/23 03:17 Labs: Abnormal Lab Results - Last 24 Hours (Table) 11/25/23 11/26/23 Range/Units 20:53 06:00 POC Glucose (mg/dL) 131 H 126 H (70-110) mg/dL
--- NOTE | 2023-11-26 14:27 | P.PN ---
Subjective Progress Note Date: 11/26/23 Patient 63-year-old gentleman with past medical his significant for COPD, coronary disease, A-fib who presented to the ER because of chest pain. Patient stated that he was all right 1 day back when he started experiencing chest pain that was pressure-like, occasional left-sided, nonradiating, no aggravating or relieving factors associated with chest pain. Patient history of COPD but noticed that she was getting more short of breath. Patient denied any orthopnea or PND. There was no complaint of swelling of feet. Patient denies any palpitations. Patient also history of alcohol abuse and admitted with drinking a lot. There is no complaint of fever or chills. Because of the symptoms, patient went to the ER Initial lab work done in the ER showed WBC 8.4, hemoglobin 13.5, platelet count 251, sodium 132, potassium 4.7, BUN 12, creatinine 0.66, glucose 129, magnesium 2, AST 112, ALT 88 serum alcohol level 133 EKG done in the ER showed heart rate of 116, irregular in rhythm, no ST segment elevation or depression seen, no T-wave inversions seen. Chest x-ray done in the ER no acute cardiopulmonary process Patient in the ER was found to be in A-fib with RVR, was given IV Lopressor and fluid resuscitation. Patient was also intoxicated with a serum alcohol level of 133. 11/25 -patient reports yesterday afternoon/evening he was feeling a good amount better, however upon waking up this morning he felt increased difficulty breathing and discomfort which has been slowly improving over time as he has been awake. Cardiology was consulted on 11/24, ordered 2D echo and had the patient resume his home cardiac medications. Pulmonology was consulted, placed the patient on corticosteroids, albuterol sulfate, ipratropium bromide, budesonide, and formoterol. Additionally, patient states tremors have been improving slowly, was placed on Ativan per CIWA protocol. Librium 50mg bid added today for his withdrawls. Patient currently saturating well, at 97%, on 4 L nasal cannula. REVIEW OF SYSTEMS: CONSTITUTIONAL: No fever, no malaise,. CARDIOVASCULAR: chest pain, no palpitations, no syncope. PULMONARY: shortness of breath, no cough, GASTROINTESTINAL: No diarrhea, no nausea, no vomiting, no abdominal pain. NEUROLOGICAL: No headaches, no weakness, PHYSICAL EXAMINATION: GENERAL: The patient is alert and oriented x3, not in any acute distress. Well developed, well nourished. HEENT: Pupils are round and equally reacting to light. EOMI. No scleral icterus. No conjunctival pallor. Normocephalic, atraumatic. No pharyngeal erythema. No thyromegaly. CARDIOVASCULAR: S1 and S2 present. No murmurs, rubs, or gallops. PULMONARY: Wheezing noted bilaterally. ABDOMEN: Soft, nontender, nondistended, normoactive bowel sounds. No palpable organomegaly. MUSCULOSKELETAL: No joint swelling or deformity. EXTREMITIES: No cyanosis, clubbing, or pedal edema. NEUROLOGICAL: Gross neurological examination did not reveal any focal deficits. SKIN: No rashes. Assessment and plan 1. COPD exacerbation Started on corticosteroids, albuterol sulfate, ipratropium bromide, budesonide and formoterol. Monitor oxygen saturation -Solu-medrol 40 mg Q6 Continue medications to continue improving respiratory status Pulmonology consulted and following 2. Alcohol abuse/alcohol detox Patient given Ativan to help combat tremors associated with alcohol withdrawal -Added Librium 50mg bid. Continue IV fluids 3. A-fib with RVR Continue home cardiology medications as per cardiology consult 4. Chest pain Pain well-controlled on [place] 53 25 every 6 hours DVT prophylaxis Heparin GI prophylaxis Protonix Monitor vital signs Labs and medication were reviewed. Continue with symptomatic treatment. Resume home medication. Monitor labs and vitals. DVT and GI prophylaxis. Further recommendations as per clinical course of the patient Dictation was produced using [employer] dictation software. please excuse any grammatical, word or spelling errors. Objective - Vital Signs Vital signs: Vital Signs Temp 97.5 F L 11/26/23 04:00 Pulse 84 11/26/23 08:42 Resp 18 11/26/23 08:21 BP 135/89 11/26/23 08:21 Pulse Ox 97 11/26/23 08:21 FiO2 Intake & Output 11/25/23 11/26/23 11/26/23 18:59 06:59 18:59 Intake Total 10 118 Output Total 1275 350 Balance -1265 -232 Weight 54.1 kg Intake: IV 10 0.9 10 Oral 118 Output: Urine 1275 350 Other: Voiding Method Urinal # Voids 1 - Labs CBC & Chem 7: 11/25/23 03:17 11/25/23 03:17 Labs: Abnormal Lab Results - Last 24 Hours (Table) 11/25/23 11/26/23 Range/Units 20:53 06:00 POC Glucose (mg/dL) 131 H 126 H (70-110) mg/dL
[2023-11-26 16:01] VITALS: BMI 17.1
[2023-11-26 16:54] LABS: Glucose,Whole Blood 115 mg/dL (70-110)
[2023-11-26] MEDS: methylPREDNISolone SOD SUCCI 40 MG/ML 1 ML VIAL IV SCH (17:07)
[2023-11-26] MEDS: chlordiazePOXIDE 25 MG CAP PO SCH (19:44)
[2023-11-26 20:57] LABS: Glucose,Whole Blood 103 mg/dL (70-110)
[2023-11-26] MEDS: SENNOSIDES 8.6 MG TAB PO PRN (22:14)
[2023-11-27 03:14] VITALS: TEMP 97.7
[2023-11-27 06:08] LABS: Glucose,Whole Blood 122 mg/dL (70-110)
[2023-11-27 11:40] LABS: Basophils % (A) 0 %; Eosinophils % (A) 0 %; HCT 40.1 % (39.0-53.0); HGB 12.4 gm/dL (13.0-17.5); Lymphocytes # (A) 0.3 k/uL (1.0-4.8); Lymphocytes % (A) 2 %; MCH 30.3 pg (25.0-35.0); MCHC 30.9 g/dL (31.0-37.0); MCV 97.9 fL (80.0-100.0); Monocytes # (A) 0.9 k/uL (0-1.0); Monocytes % (A) 6 %; Neutrophils # (A) 13.2 k/uL (1.3-7.7); Neutrophils % (A) 91 %; Platelet Count 232 k/uL (150-450); RDW 14.7 % (11.5-15.5); WBC 14.6 k/uL (3.8-10.6)
[2023-11-27 11:51] LABS: Glucose,Whole Blood 100 mg/dL (70-110)
[2023-11-27 11:55] LABS: ALT 85 U/L (4-49); AST 63 U/L (17-59); African American GFR (CKD) >90 (>60 ml/min/1.73 sqM); Albumin 3.6 g/dL (3.5-5.0); Alkaline Phosphatase 96 U/L (38-126); Anion Gap -2 mmol/L; Blood Urea Nitrogen 9 mg/dL (9-20); Calcium 9.3 mg/dL (8.4-10.2); Carbon Dioxide 38 mmol/L (22-30); Chloride 92 mmol/L (98-107); Glucose 74 mg/dL (74-99); Non-African American GFR(CKD) >90 (>60 ml/min/1.73 sqM); Potassium 4.1 mmol/L (3.5-5.1); Sodium 128 mmol/L (137-145); Total Bilirubin 0.5 mg/dL (0.2-1.3)
--- NOTE | 2023-11-27 12:02 | P.PN ---
Subjective Principal diagnosis: 64-year-old man with past medical history of COPD coronary artery disease and atrial fibrillation presents to the ER because of dyspnea and chest pain. Scribes the chest pain as pressure-like, non-radiating and without any alleviating or aggravating. factors. He states that his COPD is managed at home with Trelegy, albuterol, rescue inhaler and DuoNebs. Patient states he currently smokes half a pack a day for 20 years. He had quit a year ago but recently started smoking 1 month ago. Satting well on 3 L nasal cannula. X-ray shows flattening of the diaphragm with increased lucency of the lungs consistent with COPD changes. Patient states he drinks 12 cans of beer a day. He was sober for 12 years but began drinking again 6 weeks ago. He states that he thinks he is also having withdrawal. Serum alcohol was 133. Labs show white count 6.5, hemoglobin 12.4, hematocrit 38.7, platelets 222. Sodium is 132 potassium 4.5 chloride 96 carbon dioxide 34 BUN 13 creatinine 1.31 and glucose 109. Liver function test show AST 112 and ALT 88. Troponin was 0.019 and repeat was put less than 0.012. NT proBNP was 38. EKG showed A-fib with RVR. Patient is seen today November 26, 2023 in room 384 resting comfortably in bed in no apparent distress. He says that his breathing is improved on the breathing rosalinda tments. He is satting 97% on 4 L nasal cannula. As per the nurse his chest pain is well-controlled on [place] 53 25 every 6 hours. He did not have any overnight events but did receive Ativan for his alcohol withdrawal. He states that he has a good appetite and denies any other complaints at this time. He remains on 10ml/hr of 0.9 saline. Patient is seen today November 27, 2023 in room 384 resting comfortably in bed in no apparent distress. He states that his breathing is improved he is satting 97% on 4 L nasal cannula. Patient states that his breathing is at his baseline at home and he that he uses 3 to 4 L of oxygen. He denies any chest pain, nausea, vomiting, diarrhea. He is not on IV fluids has a good appetite and denies any problems with urination or stooling. He did not have any overnight events, but did receive Ativan 1 mg twice overnight for his alcohol withdrawal. Objective - Vital Signs Vital signs: Vital Signs Temp 97.7 F 11/27/23 03:13 Pulse 100 11/27/23 11:26 Resp 20 11/27/23 07:34 BP 131/78 11/27/23 07:34 Pulse Ox 97 11/27/23 08:24 FiO2 Intake & Output 11/26/23 11/27/23 11/27/23 18:59 06:59 18:59 Intake Total 298 Output Total 700 250 Balance -402 -250 Weight 54.1 kg 51.4 kg Intake: Oral 298 Output: Urine 700 250 Other: Voiding Method Urinal - Exam GENERAL EXAM: 63-year-old white male with tremors likely due to alcohol withdrawal HEAD: Normocephalic and atraumatic EYES: Within normal NOSE: Clear with pink turbinates. THROAT: No erythema or exudates. Dry mucous membranes. NECK: No masses, no JVD. Subclavian central line is noted. CHEST: barrel chest LUNGS: diminished breath sounds bilaterally CVS: S1 and S2 normal with no soft systolic murmur, regular rhythm. No extra heart sounds ABDOMEN: Abdomen flat, active bowel sounds, no hepatosplenomegaly, no guarding or rigidity. SKIN: No rashes EXTREMITIES: no clubbing, no cyanosis, no edema. - Additional findings Additional findings: Lines: Left forearm PIVL - Labs CBC & Chem 7: 11/27/23 11:19 11/25/23 03:17 Labs: Abnormal Lab Results - Last 24 Hours (Table) 11/26/23 11/27/23 11/27/23 Range/Units 16:52 06:07 11:19 WBC 14.6 H (3.8-10.6) k/uL RBC 4.10 L (4.30-5.90) m/uL Hgb 12.4 L (13.0-17.5) gm/dL MCHC 30.9 L (31.0-37.0) g/dL Neutrophils # 13.2 H (1.3-7.7) k/uL Lymphocytes # 0.3 L (1.0-4.8) k/uL POC Glucose (mg/dL) 115 H 122 H (70-110) mg/dL Assessment and Plan Assessment: COPD Exacerbation Resolved Chest Pain Atrial fibrillation with RVR Alcohol Withdrawal Plan Continue to monitor for alcohol withdrawal Duonebs Pulmicort Perforomist Trend troponins Continue Telemetry monitoring Lopressor CIWA Protocol Ativan & Gabapentin Continue home meds DVT Prophylaxis: Heparin GI Prophylaxis: Protonix From a pulmonary standpoint patient is cleared for discharge. Please follow recommendations as per primary team. Time with Patient: Greater than 30
[2023-11-27 15:23] VITALS: PULSE 96
[2023-11-27 15:33] VITALS: BP 122/81; RESP 16
--- NOTE | 2023-11-27 15:44 | P.DS ---
Providers Date of admission: 11/24/23 21:54 Attending physician: Og English Consults: 11/24/23 21:54 Consult Physician Routine Consulting Provider: [facility] Consult Reason/Comments: chest pain, afib with rvr Do you want consulting provider notified?: Yes 11/24/23 21:56 Consult Physician Routine Consulting Provider: Cielo Gomez Reason/Comments: copd, chronic hypoxic resp failure Do you want consulting provider notified?: Yes Primary care physician: [facility] Course: Discharge diagnoses; 1. COPD exacerbation Started on corticosteroids, albuterol sulfate, ipratropium bromide, budesonide and formoterol. Monitor oxygen saturation -Solu-medrol 40 mg Q6 Continue medications to continue improving respiratory status Pulmonology consulted and following 2. Alcohol abuse/alcohol detox Patient given Ativan to help combat tremors associated with alcohol withdrawal -Added Librium 50mg bid. Continue IV fluids 3. A-fib with RVR Continue home cardiology medications as per cardiology consult 4. Chest pain Pain well-controlled on [place] 53 25 every 6 hours Hospital course; 63-year-old gentleman with past medical his significant for COPD, coronary disease, A-fib who presented to the ER because of chest pain. Patient stated that he was all right 1 day back when he started experiencing chest pain that was pressure-like, occasional left-sided, nonradiating, no aggravating or relieving factors associated with chest pain. Patient history of COPD but noticed that she was getting more short of breath. Patient denied any orthopnea or PND. There was no complaint of swelling of feet. Patient denies any palpitations. Patient also history of alcohol abuse and admitted with drinking a lot. There is no complaint of fever or chills. Because of the symptoms, patient went to the ER Initial lab work done in the ER showed WBC 8.4, hemoglobin 13.5, platelet count 251, sodium 132, potassium 4.7, BUN 12, creatinine 0.66, glucose 129, magnesium 2, AST 112, ALT 88 serum alcohol level 133 EKG done in the ER showed heart rate of 116, irregular in rhythm, no ST segment elevation or depression seen, no T-wave inversions seen. Chest x-ray done in the ER no acute cardiopulmonary process Patient in the ER was found to be in A-fib with RVR, was given IV Lopressor and fluid resuscitation. Patient was also intoxicated with a serum alcohol level of 133. 11/25 -patient reports yesterday afternoon/evening he was feeling a good amount better, however upon waking up this morning he felt increased difficulty breathing and discomfort which has been slowly improving over time as he has been awake. Cardiology was consulted on 11/24, ordered 2D echo and had the patient resume his home cardiac medications. Pulmonology was consulted, placed the patient on corticosteroids, albuterol sulfate, ipratropium bromide, budesonide, and formoterol. Additionally, patient states tremors have been improving slowly, was placed on Ativan per [facility] protocol. Librium 50mg bid added today for his withdrawls. Patient currently saturating well, at 97%, on 4 L nasal cannula. 11/26 - patient seen at bedside. Patient states he is feeling much better this morning, stating he still has some pressure with breathing however it is noticeably better than it was previously. 7:34 AM on 11/26 his oxygen saturation was 96% on 4 L nasal cannula, blood pressure was 131/78. Scheduled to receive his Pulmicort, DuoNeb and Perforomist this morning. Patient states his tremors continue to improve, showing only minimal tremors this morning. Patient's glucose at 6:14 AM on 11/26 was 122, continues to be well-controlled NovoLog remains available, but has not been needed. Patient has no current complaints, discharged to subacute rehab has been discussed with the patient, however patient refuses rehab. Patient sent home with prednisone 20 mg on a taper and his Trelegy was increased to 200. PHYSICAL EXAMINATION: GENERAL: The patient is alert and oriented x3, not in any acute distress. Well developed, well nourished. Tremors present likely due to alcohol withdrawal. HEENT: Pupils are round and equally reacting to light. EOMI. No scleral icterus. No conjunctival pallor. Normocephalic, atraumatic. No pharyngeal erythema. No thyromegaly. CARDIOVASCULAR: S1 and S2 present. No murmurs, rubs, or gallops. PULMONARY: Diminished breath sounds bilaterally ABDOMEN: Soft, nontender, nondistended, normoactive bowel sounds. No palpable organomegaly. MUSCULOSKELETAL: No joint swelling or deformity. EXTREMITIES: No cyanosis, clubbing, or pedal edema. NEUROLOGICAL: Gross neurological examination did not reveal any focal deficits. SKIN: No rashes. Dictation was produced using [employer] dictation software. please excuse any grammatical, word or spelling errors. Patient Condition at Discharge: Fair Plan - Discharge Summary Discharge Rx Participant: Yes New Discharge Prescriptions: New predniSONE See Taper PO DAILY 8 Days #10 tab Fluticasone/Umeclidin/Vilanter [Trelegy Ellipta 200-62.5-25] 1 puff INHALATION DAILY #1 each Continue Albuterol Sulfate [Ventolin HFA] 2 puff INHALATION RT-Q6H PRN PRN Reason: Shortness Of Breath Or Wheezing Metoprolol Tartrate 25 mg PO BID Atorvastatin Calcium [Lipitor] 80 mg PO HS Aspirin EC [Ecotrin Low Dose] 81 mg PO DAILY Ipratropium-Albuterol Nebulize [Duoneb 0.5 mg-3 mg/3 ml Soln] 3 ml INHALATION RT-Q4H PRN each PRN Reason: shortness of breath Thiamine [Vitamin B-1] 100 mg PO DAILY tab Ipratropium-Albuterol Nebulize [Duoneb 0.5 mg-3 mg/3 ml Soln] 3 ml INHALATION RT-QID hydrOXYzine HCL [Atarax] 10 mg PO TID PRN PRN Reason: Anxiety guaiFENesin-DM 600/30MG [Mucinex Dm] 2 tab PO Q12HR Albuterol Nebulized [Ventolin Nebulized] 2.5 mg INHALATION RT-TID Pantoprazole Sodium 20 mg PO DAILY Ibuprofen 800 mg PO Q8H PRN PRN Reason: Pain Cholecalciferol [Vitamin D3 (25 Mcg = 1000 Iu)] 50 mcg PO DAILY Folic Acid 1 mg PO DAILY tab ALPRAZolam [Xanax] 0.5 mg PO Q12H PRN #2 tab PRN Reason: Anxiety Gabapentin 600 mg PO TID PRN PRN Reason: nerve pain HYDROcodone/APAP 5-325MG [[place] 5-325] 1 tab PO Q6H PRN PRN Reason: Pain Multivitamins, Thera [Multivitamin (formulary)] 1 tab PO DAILY predniSONE 10 mg PO DAILY Isosorbide Mononitrate ER [Imdur] 15 mg PO DAILY Discontinued Fluticasone/Umeclidin/Vilanter [Trelegy Ellipta 100-62.5-25] 1 puff INHALATION RT-DAILY Discharge Medication List Albuterol Sulfate [Ventolin HFA] 2 puff INHALATION RT-Q6H PRN 11/13/14 [History] Metoprolol Tartrate 25 mg PO BID 07/27/15 [History] Albuterol Nebulized [Ventolin Nebulized] 2.5 mg INHALATION RT-TID 12/15/21 [History] Pantoprazole Sodium 20 mg PO DAILY 12/15/21 [History] Ibuprofen 800 mg PO Q8H PRN 12/10/22 [History] Atorvastatin Calcium [Lipitor] 80 mg PO HS 06/11/23 [History] Cholecalciferol [Vitamin D3 (25 Mcg = 1000 Iu)] 50 mcg PO DAILY 06/11/23 [History] Aspirin EC [Ecotrin Low Dose] 81 mg PO DAILY 10/05/23 [History] ALPRAZolam [Xanax] 0.5 mg PO Q12H PRN #2 tab 10/11/23 [Rx] Folic Acid 1 mg PO DAILY tab 10/11/23 [Rx] Ipratropium-Albuterol Nebulize [Duoneb 0.5 mg-3 mg/3 ml Soln] 3 ml INHALATION RT-Q4H PRN each 10/11/23 [Rx] Thiamine [Vitamin B-1] 100 mg PO DAILY tab 10/11/23 [Rx] Gabapentin 600 mg PO TID PRN 11/16/23 [History] HYDROcodone/APAP 5-325MG [[place] 5-325] 1 tab PO Q6H PRN 11/16/23 [History] Ipratropium-Albuterol Nebulize [Duoneb 0.5 mg-3 mg/3 ml Soln] 3 ml INHALATION RT-QID 11/16/23 [History] Multivitamins, Thera [Multivitamin (formulary)] 1 tab PO DAILY 11/16/23 [History] hydrOXYzine HCL [Atarax] 10 mg PO TID PRN 11/16/23 [History] predniSONE 10 mg PO DAILY 11/16/23 [History] Isosorbide Mononitrate ER [Imdur] 15 mg PO DAILY 11/25/23 [History] guaiFENesin-DM 600/30MG [Mucinex Dm] 2 tab PO Q12HR 11/25/23 [History] Fluticasone/Umeclidin/Vilanter [Trelegy Ellipta 200-62.5-25] 1 puff INHALATION DAILY #1 each 11/27/23 [Rx] predniSONE See Taper PO DAILY 8 Days #10 tab 11/27/23 [Rx] Follow up Appointment(s)/Referral(s): Walker Singleton MD [STAFF PHYSICIAN] - 2 Weeks [facility], [NON-STAFF] - Ashlyn Toro MD [Primary Care Provider] - 1-2 days Discharge/Stand Alone Forms: AA Meetings [place], Community Resources, Inp Substance Abuse Facilities
== END 2023-11-27 17:27 | disposition home or self-care (01) | DRG 191 ==
LOC: EC 19:13 → 3SCARD 21:54
PROVIDERS: ADMIT Hospitalist; ATTEND Hospitalist
PROC: HZ2ZZZZ Detoxification Services for Substance Abuse Treatment (ICD-10-PCS; principal; 2023-11-25)
DX: J44.1 Chronic obstructive pulmonary disease with (acute) exacerbation (principal); F10.139 Alcohol abuse with withdrawal, unspecified; J96.11 Chronic respiratory failure with hypoxia; Z68.1 Body mass index [BMI] 19.9 or less, adult; I25.10 Atherosclerotic heart disease of native coronary artery without angina pectoris; R63.6 Underweight; R07.9 Chest pain, unspecified; I48.91 Unspecified atrial fibrillation; I73.9 Peripheral vascular disease, unspecified; Y90.6 Blood alcohol level of 120-199 mg/100 ml; F10.129 Alcohol abuse with intoxication, unspecified; F17.210 Nicotine dependence, cigarettes, uncomplicated; M19.90 Unspecified osteoarthritis, unspecified site; G47.30 Sleep apnea, unspecified; E78.5 Hyperlipidemia, unspecified; I10 Essential (primary) hypertension; Z79.82 Long term (current) use of aspirin; Z79.899 Other long term (current) drug therapy; Z82.49 Family history of ischemic heart disease and other diseases of the circulatory system; Z95.5 Presence of coronary angioplasty implant and graft; Z99.81 Dependence on supplemental oxygen; Z86.14 Personal history of Methicillin resistant Staphylococcus aureus infection; Z87.01 Personal history of pneumonia (recurrent); Z87.19 Personal history of other diseases of the digestive system; Z71.6 Tobacco abuse counseling
CPT/HCPCS: 36415; 71046; 80053; 80320; 83690; 83735; 83880; 84484; 85025; 85610; 85730; 93005; 94640; 94760; 96361; 96372; 96374; 96375; 96376; 99291

== ENCOUNTER 2023-12-06 09:50 | Inpatient (IN) | payer MEDICARE, OTHER ==
--- NOTE | 2023-12-06 09:55 | ED ---
General Adult HPI - General Stated complaint: SOB Time Seen by Provider: 12/06/23 09:52 Source: patient, EMS, RN notes reviewed, old records reviewed Mode of arrival: EMS Limitations: no limitations - History of Present Illness Initial comments: Patient is a 63-year-old male presenting to emergency department with shortness of breath. Onset of symptoms was the last couple of days. Patient has COPD with similar symptoms previously. Mild cough. No fever. Patient has also s topped drinking alcohol however did have 1 beer this morning. - Related Data Home Medications Medication Instructions Recorded Confirmed Albuterol Sulfate [Ventolin HFA] 2 puff INHALATION RT-Q6H PRN 11/13/14 12/06/23 Metoprolol Tartrate 25 mg PO BID 07/27/15 12/06/23 Albuterol Nebulized [Ventolin 2.5 mg INHALATION RT-TID 12/15/21 12/06/23 Nebulized] Pantoprazole Sodium 20 mg PO DAILY 12/15/21 12/06/23 Ibuprofen 800 mg PO Q8H PRN 12/10/22 12/06/23 Atorvastatin Calcium [Lipitor] 80 mg PO HS 06/11/23 12/06/23 Cholecalciferol [Vitamin D3 (25 50 mcg PO DAILY 06/11/23 12/06/23 Mcg = 1000 Iu)] Aspirin EC [Ecotrin Low Dose] 81 mg PO DAILY 10/05/23 12/06/23 Gabapentin 600 mg PO TID PRN 11/16/23 12/06/23 HYDROcodone/APAP 5-325MG [[place] 1 tab PO Q6H PRN 11/16/23 12/06/23 5-325] Ipratropium-Albuterol Nebulize 3 ml INHALATION RT-QID 11/16/23 12/06/23 [Duoneb 0.5 mg-3 mg/3 ml Soln] Multivitamins, Thera [Multivitamin 1 tab PO DAILY 11/16/23 12/06/23 (formulary)] hydrOXYzine HCL [Atarax] 10 mg PO TID PRN 11/16/23 12/06/23 Isosorbide Mononitrate ER [Imdur] 15 mg PO DAILY 11/25/23 12/06/23 guaiFENesin-DM 600/30MG [Mucinex 2 tab PO Q12HR 11/25/23 12/06/23 Dm] Fluticasone/Umeclidin/Vilanter 1 puff INHALATION RT-DAILY 12/06/23 12/06/23 [Trelegy Ellipta 200-62.5-25] predniSONE 10 mg PO DAILY 12/06/23 12/06/23 Previous Rx's Medication Instructions Recorded ALPRAZolam [Xanax] 0.5 mg PO Q12H PRN #2 tab 10/11/23 Folic Acid 1 mg PO DAILY tab 10/11/23 Ipratropium-Albuterol Nebulize 3 ml INHALATION RT-Q4H PRN each 10/11/23 [Duoneb 0.5 mg-3 mg/3 ml Soln] Thiamine [Vitamin B-1] 100 mg PO DAILY tab 10/11/23 Allergies Allergy/AdvReac Type Severity Reaction Status Date / Time No Known Allergies Allergy Verified 12/06/23 10:59 Review of Systems ROS Statement: Those systems with pertinent positive or pertinent negative responses have been documented in the HPI. ROS Other: All systems not noted in ROS Statement are negative. Constitutional: Denies: fever Eyes: Denies: eye pain ENT: Denies: ear pain Respiratory: Reports: as per HPI, dyspnea Cardiovascular: Denies: chest pain Endocrine: Denies: fatigue Past Medical History Past Medical History: Atrial Fibrillation, Coronary Artery Disease (CAD), COPD, Deep Vein Thrombosis (DVT), GERD/Reflux, GI Bleed, Hyperlipidemia, Hypertension, Osteoarthritis (OA), Pneumonia, Sleep Apnea/CPAP/BIPAP Additional Past Medical History / Comment(s): DVT- LEFT LEG, CPAP, pt uses 3 liters 02 when active and at night with cpap. pt has portable 02 History of Any Multi-Drug Resistant Organisms: MRSA Date of last positivie culture/infection: 03/01/22 MRSA MDRO Source:: Right Axilla Past Surgical History: Heart Catheterization With Stent, Orthopedic Surgery Additional Past Surgical History / Comment(s): ABD AORTOGRAM. Other SX: (construction accident balcony fell from building)HAD CRUSHING INJURY TO ANKLES HAD FUSION DONE JOSE ALBERTO, LT FOOT TOE PARTIAL AMP. CHEST TUBE FOR PNEUMOTHORAX. SURGERY TO REMOVE BLOOD CLOT FROM LEG. Bronchial washings/lavage, EGD. femoral bypass,heart stents x3 Past Anesthesia/Blood Transfusion Reactions: No Reported Reaction Additional Past Anesthesia/Blood Transfusion Reaction / Comment(s): Pt states he has never received blood. Date of Last Stent Placement:: 04/2021 Past Psychological History: No Psychological Hx Reported Additional Psychological History / Comment(s): Pt lives alone in an apartment. He is normally independent. He does not drive- he uses the bus to get places. He uses a cane to ambulate. Smoking Status: Current every day smoker Past Alcohol Use History: Abuse Additional Past Alcohol Use History / Comment(s): ETOH and smoking, pt smokes .5 packs/ day Past Drug Use History: Marijuana Additional Drug Use History / Comment(s): cbd gummies - Past Family History Father Family Medical History: Coronary Artery Disease (CAD), Diabetes Mellitus, Myocardial Infarction ([place]), Pulmonary Embolus Additional Family Medical History / Comment(s): PE Mother Family Medical History: CVA/TIA General Exam Limitations: physical limitation General appearance: alert Head exam: Present: atraumatic Eye exam: Present: normal appearance Neck exam: Present: normal inspection Respiratory exam: Present: respiratory distress, wheezes, decreased breath sounds Cardiovascular Exam: Present: tachycardia GI/Abdominal exam: Present: soft. Absent: tenderness Extremities exam: Absent: calf tenderness Neurological exam: Present: alert Psychiatric exam: Present: anxious Skin exam: Present: normal color Course Vital Signs 12/06/23 12/06/23 12/06/23 09:51 10:03 10:08 Temperature 98.3 F Pulse Rate 128 H 125 H Respiratory 35 H 26 H Rate Blood Pressure 131/93 O2 Sat by Pulse 97 Oximetry Fraction of 40 Inspired Oxygen (FIO2) 12/06/23 12/06/23 12/06/23 10:18 10:35 11:03 Temperature Pulse Rate 124 H 116 H 120 H Respiratory 22 20 18 Rate Blood Pressure 109/77 95/75 O2 Sat by Pulse 97 97 Oximetry Fraction of Inspired Oxygen (FIO2) 12/06/23 12/06/23 12/06/23 11:45 12:12 12:30 Temperature Pulse Rate 113 H 160 H 156 H Respiratory 18 18 18 Rate Blood Pressure 103/72 100/62 93/77 O2 Sat by Pulse 97 99 97 Oximetry Fraction of Inspired Oxygen (FIO2) 12/06/23 13:07 Temperature Pulse Rate 165 H Respiratory 22 Rate Blood Pressure 94/64 O2 Sat by Pulse 97 Oximetry Fraction of Inspired Oxygen (FIO2) EKG Findings - EKG Results: EKG: interpreted by ERMD (Inferior Q waves.), sinus rhythm, normal axis, normal ST/T EKG shows: tachycardia Medical Decision Making - Medical Decision Making Repeat EKG interpreted by myself shows A-fib with a rate of 147. Normal axis. Normal QRS. No acute ST change Was pt. sent in by a medical professional or institution (DASHAWN Farrell, [employer], urgent care, hospital, or longterm...) When possible be specific @ -No Did you speak to anyone other than the patient for history (EMS, parent, family, police, friend...)? What history was obtained from this source @ -EMS helps provide history of transportation Did you review nursing and triage notes (agree or disagree)? Why? @ -I reviewed and agree with nursing and triage notes Were old charts reviewed (outside hosp., previous admission, EMS record, old EKG, old radiological studies, urgent care reports/EKG's, longterm records)? Report findings @ -Previous admission reviewed Differential Diagnosis (chest pain, altered mental status, abdominal pain women, abdominal pain men, vaginal bleeding, weakness, fever, dyspnea, syncope, headache, dizziness, GI bleed, back pain, seizure, CVA, palpatations, mental hea lth, musculoskeletal)? @ -Differential Dyspnea: Coronary syndrome, arrhythmia, tamponade, asthma, COPD, pulmonary embolism, pneumonia, pneumothorax, pulmonary effusion, anaphylaxis, diabetic ketoacidosis, flailed chest, pulmonary contusion, diaphragmatic rupture, anemia, neuromuscular, this is not meant to be an all-inclusive list. EKG interpreted by me (3pts min.). @ -As above X-rays interpreted by me (1pt min.). @ -Chest x-ray shows no acute process CT interpreted by me (1pt min.). @ -None done U/S interpreted by me (1pt. min.). @ -None done What testing was considered but not performed or refused? (CT, X-rays, U/S, labs)? Why? @ -None What meds were considered but not given or refused? Why? @ -None Did you discuss the management of the patient with other professionals (jyoti hernandez iDASHAWN Delacruz, [employer], lab, RT, psych nurse, elementary school social worker, psychiatry resident, teacher, medical officer psychiatry, supportive employment case manager)? Give summary @ -Case was discussed with Dr. Araujo who will admit covering Dr. Guzman Was smoking cessation discussed for >3mins.? @ -No Was critical care preformed (if so, how long)? @ -31 minutes critical care time Were there social determinants of health that impacted care today? How? (Homelessness, low income, unemployed, alcoholism, drug addiction, transportation, low edu. Level, literacy, decrease access to med. care, correction, rehab)? @ -No Was there de-escalation of care discussed even if they declined (Discuss DNR or withdrawal of care, Hospice)? DNR status @ -No What co-morbidities impacted this encounter? (DM, HTN, Smoking, COPD, CAD, Cancer, CVA, ARF, Chemo, Hep., AIDS, mental health diagnosis, sleep apnea, morbid obesity)? @ -History of alcoholism Was patient admitted / discharged? Hospital course, mention meds given and route, prescriptions, significant lab abnormalities, going to OR and other pertinent info. @ -Patient presents with dyspnea and concerns for withdrawal. Patient does have COPD exacerbation. Patient did develop A-fib. Cardizem drip started. Patient will be admitted with cardiac consult. Admission orders started Undiagnosed new problem with uncertain prognosis? @ -No Drug Therapy requiring intensive monitoring for toxicity (Heparin, Nitro, Insulin, Cardizem)? @ -Patient placed on Cardizem drip Were any procedures done? @ -No Diagnosis/symptom? @ -COPD, respiratory failure, A-fib with RVR Acute, or Chronic, or Acute on Chronic? @ -Acute on chronic, acute, acute Uncomplicated (without systemic symptoms) or Complicated (systemic symptoms)? @ -Complicated with A-fib Side effects of treatment? @ -No Exacerbation, Progression, or Severe Exacerbation? @ -No Poses a threat to life or bodily function? How? (Chest pain, [place], [place], pneumonia, PE, COPD, DKA, ARF, appy, cholecystitis, CVA, Diverticulitis, Homicidal, Suicidal, threat to staff... and all critical care pts) @ -Threat to cardiac and pulmonary function - Lab Data Result diagrams: 12/06/23 10:06 12/06/23 11:05 Lab Results 12/06/23 12/06/2324 Range/Units 10:06 11:05 11:05 WBC 13.6 H (3.8-10.6) k/uL RBC 4.10 L (4.30-5.90) m/uL Hgb 12.9 L (13.0-17.5) gm/dL Hct 37.9 L (39.0-53.0) % MCV 92.4 D (80.0-100.0) fL MCH 31.5 (25.0-35.0) pg MCHC 34.1 (31.0-37.0) g/dL RDW 15.3 (11.5-15.5) % Plt Count 375 (150-450) k/uL MPV 8.2 Neutrophils % 87 % Lymphocytes % 4 % Monocytes % 7 % Eosinophils % 1 % Basophils % 0 % Neutrophils # 11.8 H (1.3-7.7) k/uL Lymphocytes # 0.6 L (1.0-4.8) k/uL Monocytes # 1.0 (0-1.0) k/uL Eosinophils # 0.1 (0-0.7) k/uL Basophils # 0.0 (0-0.2) k/uL PT 9.9 L (10.0-12.5) sec INR 0.9 (<1.2) APTT 26.2 (22.0-30.0) sec Sodium (137-145) mmol/L Potassium (3.5-5.1) mmol/L Chloride (98-107) mmol/L Carbon Dioxide (22-30) mmol/L Anion Gap mmol/L BUN (9-20) mg/dL Creatinine (0.66-1.25) mg/dL Est GFR (CKD-EPI)AfAm (>60 ml/min/1.73 sqM) Est GFR (CKD-EPI)NonAf (>60 ml/min/1.73 sqM) Glucose (74-99) mg/dL Plasma Lactic Acid Ned 5.3 H* (0.7-2.0) mmol/L Calcium (8.4-10.2) mg/dL Magnesium (1.6-2.3) mg/dL Total Bilirubin (0.2-1.3) mg/dL AST (17-59) U/L ALT (4-49) U/L Alkaline Phosphatase (38-126) U/L Total Protein (6.3-8.2) g/dL Albumin (3.5-5.0) g/dL Serum Alcohol mg/dL 12/06/23 Range/Units 11:05 WBC (3.8-10.6) k/uL RBC (4.30-5.90) m/uL Hgb (13.0-17.5) gm/dL Hct (39.0-53.0) % MCV (80.0-100.0) fL MCH (25.0-35.0) pg MCHC (31.0-37.0) g/dL RDW (11.5-15.5) % Plt Count (150-450) k/uL MPV Neutrophils % % Lymphocytes % % Monocytes % % Eosinophils % % Basophils % % Neutrophils # (1.3-7.7) k/uL Lymphocytes # (1.0-4.8) k/uL Monocytes # (0-1.0) k/uL Eosinophils # (0-0.7) k/uL Basophils # (0-0.2) k/uL PT (10.0-12.5) sec INR (<1.2) APTT (22.0-30.0) sec Sodium 120 L (137-145) mmol/L Potassium 3.9 (3.5-5.1) mmol/L Chloride 81 L (98-107) mmol/L Carbon Dioxide 30 (22-30) mmol/L Anion Gap 9 mmol/L BUN 3 L (9-20) mg/dL Creatinine 0.32 L (0.66-1.25) mg/dL Est GFR (CKD-EPI)AfAm >90 (>60 ml/min/1.73 sqM) Est GFR (CKD-EPI)NonAf >90 (>60 ml/min/1.73 sqM) Glucose 99 (74-99) mg/dL Plasma Lactic Acid Ned (0.7-2.0) mmol/L Calcium 8.4 (8.4-10.2) mg/dL Magnesium 1.9 (1.6-2.3) mg/dL Total Bilirubin 0.8 (0.2-1.3) mg/dL AST 64 H (17-59) U/L ALT 52 H (4-49) U/L Alkaline Phosphatase 119 (38-126) U/L Total Protein 6.0 L (6.3-8.2) g/dL Albumin 3.7 (3.5-5.0) g/dL Serum Alcohol 94 mg/dL Critical Care Time Critical Care Time: Yes Total Critical Care Time: 31 Disposition Clinical Impression: Acute respiratory failure, COPD with exacerbation, Atrial fibrillation with RVR Disposition: ADMITTED IP TO THIS HOSP Condition: Serious Is patient prescribed a controlled substance at d/c from ED?: No Referrals: Ashlyn Toro MD [Primary Care Provider] - 1-2 days Time of Disposition: 13:34
[2023-12-06] MEDS: IPRATROPIUM-ALBUTEROL 3 ML NEB INHALATION STA (10:08)
[2023-12-06] MEDS: methylPREDNISolone SOD SUCCI 125 MG/2 ML VIAL IV STA (10:23)
[2023-12-06] MEDS: LORazepam 2 MG/ML INJ IV STA ×2 (10:26→12:22)
[2023-12-06] MEDS: ONDANSETRON 4 MG/2 ML VIAL IVP STA (10:27)
[2023-12-06 10:40] LABS: Basophils % (A) 0 %; Eosinophils # (A) 0.1 k/uL (0-0.7); Eosinophils % (A) 1 %; HCT 37.9 % (39.0-53.0); HGB 12.9 gm/dL (13.0-17.5); Lymphocytes # (A) 0.6 k/uL (1.0-4.8); Lymphocytes % (A) 4 %; MCH 31.5 pg (25.0-35.0); MCHC 34.1 g/dL (31.0-37.0); Mean Platelet Volume 8.2; Monocytes % (A) 7 %; Neutrophils # (A) 11.8 k/uL (1.3-7.7); Neutrophils % (A) 87 %; Platelet Count 375 k/uL (150-450); RDW 15.3 % (11.5-15.5); WBC 13.6 k/uL (3.8-10.6)
[2023-12-06 10:42] LABS: MCV 92.4 fL (80.0-100.0)
--- NOTE | 2023-12-06 11:09 | XR ---
EXAMINATION TYPE: XR chest 1V portable DATE OF EXAM: 12/06/2023 COMPARISON: NONE HISTORY: Shortness of breath TECHNIQUE: Frontal and lateral views of the chest are obtained. FINDINGS: Scattered senescent parenchymal changes noted. Hyperinflation compatible with COPD. No evidence for infiltrate. No evidence for atelectasis. Heart size is stable. Mediastinal structures are stable and grossly unremarkable. No evidence for hilar prominence. Degenerative changes dorsal spine. IMPRESSION: 1. No evidence for acute pulmonary disease.
[2023-12-06 11:44] LABS: INR 0.9 (<1.2); Partial Thromboplastin Time 26.2 sec (22.0-30.0); Prothrombin Time 9.9 sec (10.0-12.5)
[2023-12-06 12:03] LABS: ALT 52 U/L (4-49); AST 64 U/L (17-59); African American GFR (CKD) >90 (>60 ml/min/1.73 sqM); Albumin 3.7 g/dL (3.5-5.0); Alkaline Phosphatase 119 U/L (38-126); Anion Gap 9 mmol/L; Blood Urea Nitrogen 3 mg/dL (9-20); Calcium 8.4 mg/dL (8.4-10.2); Carbon Dioxide 30 mmol/L (22-30); Chloride 81 mmol/L (98-107); Glucose 99 mg/dL (74-99); Magnesium 1.9 mg/dL (1.6-2.3); Non-African American GFR(CKD) >90 (>60 ml/min/1.73 sqM); Potassium 3.9 mmol/L (3.5-5.1); Sodium 120 mmol/L (137-145); Total Bilirubin 0.8 mg/dL (0.2-1.3)
[2023-12-06 12:04] LABS: Alcohol 94 mg/dL
[2023-12-06] MEDS: SODIUM CHLORIDE 0.9% 500 ML 500 ML IV STA (12:22)
[2023-12-06] MEDS: DILTIAZEM 125 MG in SODIUM CHLORIDE 0.9% 100 ML IV SCH (12:29)
[2023-12-06] MEDS ORDERED: hydrOXYzine HCL 10 MG TAB PO PRN (13:29)
[2023-12-06] MEDS ORDERED: NALOXONE 0.4 MG/ML 1 ML VIAL IV PRN (13:38)
--- NOTE | 2023-12-06 14:35 | P.CNPUL ---
History of Present Illness Consult date: 12/06/23 Requesting physician: Ollie E Keli Reason for consult: dyspnea, COPD, hypoxemia Chief complaint: Shortness of breath History of present illness: This is a 63-year-old male patient with a known history of severe chronic obstructive pulmonary disease, chronic and ongoing tobacco dependence, daily alcohol use, marijuana use, coronary disease with previous stent placement, hypertension, hyperlipidemia, atrial fibrillation. He presented here to the emergency room earlier this morning with complaints of shortness of breath. He states he had stopped drinking alcohol but did admit to having 1 beer this morning. Chest x-ray shows evidence of hyperinflation compatible with COPD but no acute pulmonary process. White count 13.6. Hemoglobin 12.9. Platelets 375. Sodium 120. Potassium 3.9. Bicarb 30. BUN 3. Creatinine 0.32. Glucose 99. AST 64. ALT 52. Serum alcohol level 94. He was having increased work of breathing. He is seen in the emergency department. He is on BiPAP 10/5 and 40% FiO2. He is currently on a Cardizem drip at 5 mg/h. He does have lower extremity edema 1-2+. Sinus tachycardia on monitor. Review of Systems REVIEW OF SYSTEMS: CONSTITUTIONAL: Denies any recent significant weight loss or weight gain. EYES: Denies change in vision. EARS, NOSE, MOUTH, THROAT: Denies headaches, denies sore throat. CARDIOVASCULAR: Denies chest pain, palpitations or syncopal episodes. RESPIRATORY: Positive for shortness of breath, cough, congestion no hemoptysis. GASTROINTESTINAL: Denies change in appetite, denies abdominal pain GENITOURINARY: Denies hematuria, denies infections. MUSKULOSKELETAL: Positive for lower extremity swelling. INTEGUMENTARY: Denies rash, denies eczema. NEUROLOGICAL: Denies recent memory loss, no recent seizure activity. PSYCHIATRIC: Denies anxiety, denies depression. HEMATOLOGIC/LYMPHATIC: Denies anemia, denies enlarged lymph nodes. Past Medical History Past Medical History: Atrial Fibrillation, Coronary Artery Disease (CAD), COPD, Deep Vein Thrombosis (DVT), GERD/Reflux, GI Bleed, Hyperlipidemia, Hypertension, Osteoarthritis (OA), Pneumonia, Sleep Apnea/CPAP/BIPAP Additional Past Medical History / Comment(s): DVT- LEFT LEG, CPAP, pt uses 3 liters 02 when active and at night with cpap. pt has portable 02 History of Any Multi-Drug Resistant Organisms: MRSA Date of last positivie culture/infection: 03/01/22 MRSA MDRO Source:: Right Axilla Past Surgical History: Heart Catheterization With Stent, Orthopedic Surgery Additional Past Surgical History / Comment(s): ABD AORTOGRAM. Other SX: (construction accident balcony fell from building)HAD CRUSHING INJURY TO ANKLES HAD FUSION DONE JOSE ALBERTO, LT FOOT TOE PARTIAL AMP. CHEST TUBE FOR PNEUMOTHORAX. SURGERY TO REMOVE BLOOD CLOT FROM LEG. Bronchial washings/lavage, EGD. femoral bypass,heart stents x3 Past Anesthesia/Blood Transfusion Reactions: No Reported Reaction Additional Past Anesthesia/Blood Transfusion Reaction / Comment(s): Pt states he has never received blood. Date of Last Stent Placement:: 04/2021 Past Psychological History: No Psychological Hx Reported Additional Psychological History / Comment(s): Pt lives alone in an apartment. He is normally independent. He does not drive- he uses the bus to get places. He uses a cane to ambulate. Smoking Status: Current every day smoker Past Alcohol Use History: Abuse Additional Past Alcohol Use History / Comment(s): ETOH and smoking, pt smokes .5 packs/ day Past Drug Use History: Marijuana Additional Drug Use History / Comment(s): cbd gummies - Past Family History Father Family Medical History: Coronary Artery Disease (CAD), Diabetes Mellitus, Myocardial Infarction ([place]), Pulmonary Embolus Additional Family Medical History / Comment(s): PE Mother Family Medical History: CVA/TIA Medications and Allergies Home Medications Medication Instructions Recorded Confirmed Type Albuterol Sulfate [Ventolin HFA] 2 puff INHALATION RT-Q6H PRN 11/13/14 12/06/23 History Metoprolol Tartrate 25 mg PO BID 07/27/15 12/06/23 History Albuterol Nebulized [Ventolin 2.5 mg INHALATION RT-TID 12/15/21 12/06/23 History Nebulized] Pantoprazole Sodium 20 mg PO DAILY 12/15/21 12/06/23 History Ibuprofen 800 mg PO Q8H PRN 12/10/22 12/06/23 History Atorvastatin Calcium [Lipitor] 80 mg PO HS 06/11/23 12/06/23 History Cholecalciferol [Vitamin D3 (25 50 mcg PO DAILY 06/11/23 12/06/23 History Mcg = 1000 Iu)] Aspirin EC [Ecotrin Low Dose] 81 mg PO DAILY 10/05/23 12/06/23 History ALPRAZolam [Xanax] 0.5 mg PO Q12H PRN #2 tab 10/11/23 12/06/23 Rx Folic Acid 1 mg PO DAILY tab 10/11/23 12/06/23 Rx Ipratropium-Albuterol Nebulize 3 ml INHALATION RT-Q4H PRN each 10/11/23 12/06/23 Rx [Duoneb 0.5 mg-3 mg/3 ml Soln] Thiamine [Vitamin B-1] 100 mg PO DAILY tab 10/11/23 12/06/23 Rx Gabapentin 600 mg PO TID PRN 11/16/23 12/06/23 History HYDROcodone/APAP 5-325MG [[place] 1 tab PO Q6H PRN 11/16/23 12/06/23 History 5-325] Ipratropium-Albuterol Nebulize 3 ml INHALATION RT-QID 11/16/23 12/06/23 History [Duoneb 0.5 mg-3 mg/3 ml Soln] Multivitamins, Thera [Multivitamin 1 tab PO DAILY 11/16/23 12/06/23 History (formulary)] hydrOXYzine HCL [Atarax] 10 mg PO TID PRN 11/16/23 12/06/23 History Isosorbide Mononitrate ER [Imdur] 15 mg PO DAILY 11/25/23 12/06/23 History guaiFENesin-DM 600/30MG [Mucinex 2 tab PO Q12HR 11/25/23 12/06/23 History Dm] Fluticasone/Umeclidin/Vilanter 1 puff INHALATION RT-DAILY 12/06/23 12/06/23 History [Trelegy Ellipta 200-62.5-25] predniSONE 10 mg PO DAILY 12/06/23 12/06/23 History Allergies Allergy/AdvReac Type Severity Reaction Status Date / Time No Known Allergies Allergy Verified 12/06/23 10:59 Physical Exam Vitals: Vital Signs Temp Pulse Resp BP Pulse Ox FiO2 12/06/23 13:49 112 H 20 104/76 97 12/06/23 13:07 165 H 22 94/64 97 12/06/23 12:30 156 H 18 93/77 97 12/06/23 12:12 160 H 18 100/62 99 12/06/23 11:45 113 H 18 103/72 97 12/06/23 11:03 120 H 18 95/75 97 12/06/23 10:35 116 H 20 109/77 97 12/06/23 10:18 124 H 22 12/06/23 10:08 125 H 26 H 12/06/23 10:03 40 12/06/23 09:51 98.3 F 128 H 35 H 131/93 97 Intake and Output 12/05/23 12/06/23 12/06/23 22:59 06:59 14:59 Other: Weight 54.431 kg GENERAL EXAM: Alert, disheveled 63-year-old male, on BiPAP 10/5 and 40% FiO2, fairly comfortable in no apparent distress. HEAD: Normocephalic. EYES: Normal reaction of pupils, equal size. NOSE: Clear with pink turbinates. THROAT: No erythema or exudates. NECK: No masses, no JVD. CHEST: No chest wall deformity. LUNGS: Equal air entry with no crackles, wheeze, rhonchi or dullness. Diminished throughout CVS: S1 and S2 normal with no audible murmur, regular rhythm. ABDOMEN: No hepatosplenomegaly, normal bowel sounds, no guarding or rigidity. SPINE: No scoliosis or deformity SKIN: No rashes CENTRAL NERVOUS SYSTEM: No focal deficits, tone is normal in all 4 extremities. EXTREMITIES: There is 1-2+ lower extremity peripheral edema. No clubbing, no cyanosis. Peripheral pulses are intact. Results - Laboratory Findings CBC and BMP: 12/06/23 10:06 12/06/23 11:05 PT/INR, D-dimer PT 9.9 sec (10.0-12.5) L 12/06/23 11:05 INR 0.9 (<1.2) 12/06/23 11:05 Abnormal lab findings: Abnormal Labs 12/06/23 12/06/23 12/06/23 10:06 11:05 11:05 WBC 13.6 H RBC 4.10 L Hgb 12.9 L Hct 37.9 L Neutrophils # 11.8 H Lymphocytes # 0.6 L PT 9.9 L Sodium Chloride BUN Creatinine Plasma Lactic Acid Ned 5.3 H* AST ALT Total Protein 12/06/23 11:05 WBC RBC Hgb Hct Neutrophils # Lymphocytes # PT Sodium 120 L Chloride 81 L BUN 3 L Creatinine 0.32 L Plasma Lactic Acid Ned AST 64 H ALT 52 H Total Protein 6.0 L - Diagnostic Findings Chest x-ray: image reviewed (No acute pulmonary process) Assessment and Plan Assessment: Acute on chronic hypoxemic respiratory failure secondary to an acute exacerbation of chronic obstructive pulmonary disease currently requiring BiPAP 10/5 and 40% FiO2 Oxygen dependent COPD Obstructive sleep apnea utilizing CPAP Chronic and ongoing tobacco dependence Daily alcohol use, alcohol level 94 this morning Coronary artery disease with previous stent placements Peripheral vascular disease with femoral bypass History of atrial fibrillation Hypertension Hyperlipidemia Marijuana use Plan: The patient was seen and evaluated Chest x-ray, labs and medications reviewed Add DuoNeb inhalations Add Pulmicort and Perforomist inhalations Add Solu-Medrol 60 mg every 6 hours Titrate the FiO2 as tolerated Check a procalcitonin Continue antibiotics for now Check a proBNP Remains on a Cardizem drip Educated regarding the importance of complete smoking cessation NicoDerm patch will be offered Educated regarding alcohol cessation Alcohol level 94 at 11 AM Add CIWA protocol We will continue to follow and make further recommendations based on his clinical status I have personally seen and examined the patient, performed the documentation and the assessment and plan as written. Number of minutes spent on the visit: 20.
[2023-12-06] MEDS: SODIUM CHLORIDE 0.9% 1,000 ML IV STA ×2 (14:37→14:54)
[2023-12-06] MEDS: SODIUM CHLORIDE 0.9% 500 ML 200 ML IV STA (14:39)
[2023-12-06] MEDS: AZITHROMYCIN 500 MG in SODIUM CHLORIDE 0.9% 250 ML IVPB STA (14:53)
[2023-12-06] MEDS: IPRATROPIUM-ALBUTEROL 3 ML NEB INHALATION SCH (15:00)
[2023-12-06] MEDS ORDERED: LORazepam 2 MG/ML INJ IV PRN (15:04)
[2023-12-06] MEDS ORDERED: LORazepam 0.5 MG TAB PO PRN (15:04)
--- NOTE | 2023-12-06 15:06 | ED ---
Medical Decision Making - Lab Data Result diagrams: 12/06/23 10:06 12/06/23 11:05 Lab Results 12/06/23 12/06/23 12/06/23 Range/Units 10:06 11:05 11:05 WBC 13.6 H (3.8-10.6) k/uL RBC 4.10 L (4.30-5.90) m/uL Hgb 12.9 L (13.0-17.5) gm/dL Hct 37.9 L (39.0-53.0) % MCV 92.4 D (80.0-100.0) fL MCH 31.5 (25.0-35.0) pg MCHC 34.1 (31.0-37.0) g/dL RDW 15.3 (11.5-15.5) % Plt Count 375 (150-450) k/uL MPV 8.2 Neutrophils % 87 % Lymphocytes % 4 % Monocytes % 7 % Eosinophils % 1 % Basophils % 0 % Neutrophils # 11.8 H (1.3-7.7) k/uL Lymphocytes # 0.6 L (1.0-4.8) k/uL Monocytes # 1.0 (0-1.0) k/uL Eosinophils # 0.1 (0-0.7) k/uL Basophils # 0.0 (0-0.2) k/uL PT 9.9 L (10.0-12.5) sec INR 0.9 (<1.2) APTT 26.2 (22.0-30.0) sec Sodium (137-145) mmol/L Potassium (3.5-5.1) mmol/L Chloride (98-107) mmol/L Carbon Dioxide (22-30) mmol/L Anion Gap mmol/L BUN (9-20) mg/dL Creatinine (0.66-1.25) mg/dL Est GFR (CKD-EPI)AfAm (>60 ml/min/1.73 sqM) Est GFR (CKD-EPI)NonAf (>60 ml/min/1.73 sqM) Glucose (74-99) mg/dL Lactic Ac Sepsis Rflx Plasma Lactic Acid Ned 5.3 H* (0.7-2.0) mmol/L Calcium (8.4-10.2) mg/dL Magnesium (1.6-2.3) mg/dL Total Bilirubin (0.2-1.3) mg/dL AST (17-59) U/L ALT (4-49) U/L Alkaline Phosphatase (38-126) U/L Total Protein (6.3-8.2) g/dL Albumin (3.5-5.0) g/dL Serum Alcohol mg/dL 12/06/23 12/06/23 Range/Units 11:05 11:49 WBC (3.8-10.6) k/uL RBC (4.30-5.90) m/uL Hgb (13.0-17.5) gm/dL Hct (39.0-53.0) % MCV (80.0-100.0) fL MCH (25.0-35.0) pg MCHC (31.0-37.0) g/dL RDW (11.5-15.5) % Plt Count (150-450) k/uL MPV Neutrophils % % Lymphocytes % % Monocytes % % Eosinophils % % Basophils % % Neutrophils # (1.3-7.7) k/uL Lymphocytes # (1.0-4.8) k/uL Monocytes # (0-1.0) k/uL Eosinophils # (0-0.7) k/uL Basophils # (0-0.2) k/uL PT (10.0-12.5) sec INR (<1.2) APTT (22.0-30.0) sec Sodium 120 L (137-145) mmol/L Potassium 3.9 (3.5-5.1) mmol/L Chloride 81 L (98-107) mmol/L Carbon Dioxide 30 (22-30) mmol/L Anion Gap 9 mmol/L BUN 3 L (9-20) mg/dL Creatinine 0.32 L (0.66-1.25) mg/dL Est GFR (CKD-EPI)AfAm >90 (>60 ml/min/1.73 sqM) Est GFR (CKD-EPI)NonAf >90 (>60 ml/min/1.73 sqM) Glucose 99 (74-99) mg/dL Lactic Ac Sepsis Rflx Y Plasma Lactic Acid Ned (0.7-2.0) mmol/L Calcium 8.4 (8.4-10.2) mg/dL Magnesium 1.9 (1.6-2.3) mg/dL Total Bilirubin 0.8 (0.2-1.3) mg/dL AST 64 H (17-59) U/L ALT 52 H (4-49) U/L Alkaline Phosphatase 119 (38-126) U/L Total Protein 6.0 L (6.3-8.2) g/dL Albumin 3.7 (3.5-5.0) g/dL Serum Alcohol 94 mg/dL Disposition Clinical Impression: Acute respiratory failure, COPD with exacerbation, Atrial fibrillation with RVR Disposition: ADMITTED IP TO THIS HOSP Condition: Serious Is patient prescribed a controlled substance at d/c from ED?: No Procedures - [place] Protocol (Time Out) Nurse: Linda Dior - Sepsis Sepsis Focused Exam #1 Time Sepsis Criteria Met: 13:30 Sepsis Focused Exam Date: 12/06/23 Sepsis Focused Exam Time: 15:05 Sepsis Focused Exam Complete: Yes Vital Signs & RN Notes Reviewed: Yes Capillary Refill: < 2 Seconds: Fingers, Toes Peripheral Pulses: Normal: Radial (R), Radial (L) Skin Color: Normal for Patient Respiratory Exam: wheezes Cardiovascular Exam: tachycardia
[2023-12-06] MEDS: LORazepam 1 MG TAB PO PRN ×2 (16:09→19:30)
--- NOTE | 2023-12-06 17:16 | P.HPIM ---
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 He was taking aspirin 81 mg as he states He is complaining from bilateral leg swelling. On admission patient was tachypneic and hypoxic and he was placed on BiPAP Blood pressure was 94/64 which is hypertensive for him, he was tachycardic with heart rate 156-165, he is known case of A-fib and EKG showing A-fib with RVR of a rate of 147, troponin is negative. He has mild leukocytosis 13.6, hemoglobin 12.9, sodium 120, liver enzymes mildly elevated Lactic acid 5.3 and 2.5 Chest x-ray is negative for acute process, showed COPD changes He is currently on CIWA, Cardizem drip and given normal saline boluses. Patient was admitted with pulmonary and cardiology consult Review of Systems Review of systems CONSTITUTIONAL: No fever, no malaise, no fatigue. HEENT: No recent visual problems or hearing problems. Denied any sore throat. CARDIOVASCULAR: No orthopnea, PND, no palpitations, no syncope. PULMONARY: No shortness of breath, no cough, no hemoptysis. GASTROINTESTINAL: No diarrhea, no nausea, no vomiting, no abdominal pain. Normoactive bowel sounds. NEUROLOGICAL: No headaches, no weakness, no numbness. HEMATOLOGICAL: Denies any bleeding or petechiae. GENITOURINARY: Denies any burning micturition, frequency, or urgency. MUSCULOSKELETAL/RHEUMATOLOGICAL: Denies any joint pain, swelling, or any muscle pain. ENDOCRINE: Denies any polyuria or polydipsia. Past Medical History Past Medical History: Atrial Fibrillation, Coronary Artery Disease (CAD), COPD, Deep Vein Thrombosis (DVT), GERD/Reflux, GI Bleed, Hyperlipidemia, Hypertension, Osteoarthritis (OA), Pneumonia, Sleep Apnea/CPAP/BIPAP Additional Past Medical History / Comment(s): DVT- LEFT LEG, CPAP, pt uses 3 liters 02 when active and at night with cpap. pt has portable 02 History of Any Multi-Drug Resistant Organisms: MRSA Date of last positivie culture/infection: 03/01/22 MRSA MDRO Source:: Right Axilla Past Surgical History: Heart Catheterization With Stent, Orthopedic Surgery Additional Past Surgical History / Comment(s): ABD AORTOGRAM. Other SX: (construction accident balcony fell from building)HAD CRUSHING INJURY TO ANKLES HAD FUSION DONE JOSE ALBERTO, LT FOOT TOE PARTIAL AMP. CHEST TUBE FOR PNEUMOTHORAX. SURGERY TO REMOVE BLOOD CLOT FROM LEG. Bronchial washings/lavage, EGD. femoral bypass,heart stents x3 Past Anesthesia/Blood Transfusion Reactions: No Reported Reaction Additional Past Anesthesia/Blood Transfusion Reaction / Comment(s): Pt states he has never received blood. Date of Last Stent Placement:: 04/2021 Past Psychological History: No Psychological Hx Reported Additional Psychological History / Comment(s): Pt lives alone in an apartment. He is normally independent. He does not drive- he uses the bus to get places. He uses a cane to ambulate. Smoking Status: Current every day smoker Past Alcohol Use History: Abuse Additional Past Alcohol Use History / Comment(s): ETOH and smoking, pt smokes .5 packs/ day Past Drug Use History: Marijuana Additional Drug Use History / Comment(s): cbd gummies - Past Family History Father Family Medical History: Coronary Artery Disease (CAD), Diabetes Mellitus, Myocardial Infarction (NE), Pulmonary Embolus Additional Family Medical History / Comment(s): PE Mother Family Medical History: CVA/TIA Medications and Allergies Home Medications Medication Instructions Recorded Confirmed Type Albuterol Sulfate [Ventolin HFA] 2 puff INHALATION RT-Q6H PRN 11/13/14 12/06/23 History Metoprolol Tartrate 25 mg PO BID 07/27/15 12/06/23 History Albuterol Nebulized [Ventolin 2.5 mg INHALATION RT-TID 12/15/21 12/06/23 History Nebulized] Pantoprazole Sodium 20 mg PO DAILY 12/15/21 12/06/23 History Ibuprofen 800 mg PO Q8H PRN 12/10/22 12/06/23 History Atorvastatin Calcium [Lipitor] 80 mg PO HS 06/11/23 12/06/23 History Cholecalciferol [Vitamin D3 (25 50 mcg PO DAILY 06/11/23 12/06/23 History Mcg = 1000 Iu)] Aspirin EC [Ecotrin Low Dose] 81 mg PO DAILY 10/05/23 12/06/23 History ALPRAZolam [Xanax] 0.5 mg PO Q12H PRN #2 tab 10/11/23 12/06/23 Rx Folic Acid 1 mg PO DAILY tab 10/11/23 12/06/23 Rx Ipratropium-Albuterol Nebulize 3 ml INHALATION RT-Q4H PRN each 10/11/23 12/06/23 Rx [Duoneb 0.5 mg-3 mg/3 ml Soln] Thiamine [Vitamin B-1] 100 mg PO DAILY tab 10/11/23 12/06/23 Rx Gabapentin 600 mg PO TID PRN 11/16/23 12/06/23 History HYDROcodone/APAP 5-325MG [Wesco 1 tab PO Q6H PRN 11/16/23 12/06/23 History 5-325] Ipratropium-Albuterol Nebulize 3 ml INHALATION RT-QID 11/16/23 12/06/23 History [Duoneb 0.5 mg-3 mg/3 ml Soln] Multivitamins, Thera [Multivitamin 1 tab PO DAILY 11/16/23 12/06/23 History (formulary)] hydrOXYzine HCL [Atarax] 10 mg PO TID PRN 11/16/23 12/06/23 History Isosorbide Mononitrate ER [Imdur] 15 mg PO DAILY 11/25/23 12/06/23 History guaiFENesin-DM 600/30MG [Mucinex 2 tab PO Q12HR 11/25/23 12/06/23 History Dm] Fluticasone/Umeclidin/Vilanter 1 puff INHALATION RT-DAILY 12/06/23 12/06/23 History [Trelegy Ellipta 200-62.5-25] predniSONE 10 mg PO DAILY 12/06/23 12/06/23 History Allergies Allergy/AdvReac Type Severity Reaction Status Date / Time No Known Allergies Allergy Verified 12/06/23 10:59 Physical Exam Vitals: Vital Signs Temp Pulse Resp BP Pulse Ox FiO2 12/06/23 16:12 107 H 20 118/84 98 12/06/23 15:10 117 H 19 12/06/23 15:04 104 H 20 117/83 97 12/06/23 15:01 101 H 20 40 12/06/23 14:30 97.6 F 110 H 20 96/73 98 12/06/23 13:49 112 H 20 104/76 97 12/06/23 13:07 165 H 22 94/64 97 12/06/23 12:30 156 H 18 93/77 97 12/06/23 12:12 160 H 18 100/62 99 12/06/23 11:45 113 H 18 103/72 97 12/06/23 11:03 120 H 18 95/75 97 12/06/23 10:35 116 H 20 109/77 97 12/06/23 10:18 124 H 22 12/06/23 10:08 125 H 26 H 12/06/23 10:03 40 12/06/23 09:51 98.3 F 128 H 35 H 131/93 97 Intake and Output 12/06/23 12/06/23 12/06/23 06:59 14:59 22:59 Other: Weight 54.431 kg -GENERAL: The patient is alert and oriented x3, not in any acute distress. Generally weak, thin built HEENT: Pupils are round and equally reacting to light. EOMI. No scleral icterus. No conjunctival pallor. Normocephalic, atraumatic. No pharyngeal erythema. No thyromegaly. CARDIOVASCULAR: S1 and S2 present. No murmurs, rubs, or gallops. -PULMONARY: Chest is clear to auscultation, no crackles. Tachypneic, bilateral expiratory wheezing ABDOMEN: Soft, nontender, nondistended, normoactive bowel sounds. No palpable organomegaly. MUSCULOSKELETAL: No joint swelling or deformity. EXTREMITIES: No cyanosis, clubbing, or pedal edema. NEUROLOGICAL: Gross neurological examination did not reveal any focal deficits. SKIN: No rashes. no petechiae. Results CBC & Chem 7: 12/06/23 10:06 12/06/23 11:05 Labs: Abnormal Lab Results - Last 24 Hours (Table) 12/06/23 12/06/23 12/06/23 Range/Units 10:06 11:05 11:05 WBC 13.6 H (3.8-10.6) k/uL RBC 4.10 L (4.30-5.90) m/uL Hgb 12.9 L (13.0-17.5) gm/dL Hct 37.9 L (39.0-53.0) % Neutrophils # 11.8 H (1.3-7.7) k/uL Lymphocytes # 0.6 L (1.0-4.8) k/uL PT 9.9 L (10.0-12.5) sec Sodium (137-145) mmol/L Chloride (98-107) mmol/L BUN (9-20) mg/dL Creatinine (0.66-1.25) mg/dL Plasma Lactic Acid Ned 5.3 H* (0.7-2.0) mmol/L AST (17-59) U/L ALT (4-49) U/L Total Protein (6.3-8.2) g/dL 12/06/23 12/06/23 Range/Units 11:05 14:30 WBC (3.8-10.6) k/uL RBC (4.30-5.90) m/uL Hgb (13.0-17.5) gm/dL Hct (39.0-53.0) % Neutrophils # (1.3-7.7) k/uL Lymphocytes # (1.0-4.8) k/uL PT (10.0-12.5) sec Sodium 120 L (137-145) mmol/L Chloride 81 L (98-107) mmol/L BUN 3 L (9-20) mg/dL Creatinine 0.32 L (0.66-1.25) mg/dL Plasma Lactic Acid Ned 2.5 H* (0.7-2.0) mmol/L AST 64 H (17-59) U/L ALT 52 H (4-49) U/L Total Protein 6.0 L (6.3-8.2) g/dL Assessment and Plan Assessment: Acute COPD exacerbation Acute on chronic hypoxic respiratory failure Alcohol use disorder at risk of alcohol withdrawal A-fib and RVR Hypovolemic hyponatremia Hypotensive, present on admission Dehydration secondary to above Diarrhea x 2 days prior to hospitalization. Rule out C. difficile Elevated lactic acid, improvement Moderate calorie protein malnutrition Nicotine dependence Plan: Continue with IV steroids Continue with IV hydration Monitor sodium level Continue with CIWA and thiamine Continue with the bronchodilators and inhaled steroids Continue with BiPAP as needed Pulmonary and nephrology consult Cardiology consult Labs and medication were reviewed.. Continue same treatment. Continue with symptomatic treatment. Resume home medication. Monitor labs and vitals. DVT and GI prophylaxis. Further recommendations as per clinical course of the patient DVT prophylaxis: Subcutaneous heparin GI Prophylaxis: Ppi Prognosis is guarded
[2023-12-06 18:37] LABS: Appearance,Urine Clear (Clear); Bilirubin,Urine Negative (Negative); Blood,Urine Negative (Negative); Color,Urine Colorless; Glucose,Urine (UA) Negative (Negative); Ketones,Urine Trace (Negative); Leukocyte Esterase,Urine Negative (Negative); Nitrite,Urine Negative (Negative); PH, Urine 6.5 (5.0-8.0); Protein,Urine Negative (Negative); Specific Gravity,Urine 1.006 (1.001-1.035); Urobilinogen,Urine <2.0 mg/dL (<2.0)
[2023-12-06] MEDS: methylPREDNISolone SOD SUCCI 125 MG/2 ML VIAL IV SCH (19:30)
[2023-12-06] MEDS ORDERED: SYMBICORT 80-4.5 MCG INHALER INHALATION SCH (20:00)
[2023-12-06 20:03] LABS: Glucose,Whole Blood 183 mg/dL (70-110)
[2023-12-06] MEDS: guaiFENesin-DM 600/30MG 1 EACH TAB.ER.12H PO SCH (20:43)
[2023-12-06] MEDS: METOPROLOL TARTRATE 25 MG TAB PO SCH (20:43)
[2023-12-06] MEDS: ATORVASTATIN 80 MG TAB PO SCH (20:43)
[2023-12-06] MEDS: HEPARIN SODIUM,PORCINE 5,000 UNIT/ML 1 ML VIAL SQ SCH (20:43)
[2023-12-06] MEDS: BUDESONIDE 1 MG/2 ML NEBU INHALATION SCH (20:58)
[2023-12-06] MEDS: FORMOTEROL FUMARATE 20 MCG/2 ML NEBU INHALATION SCH (20:58)
[2023-12-07] MEDS: IPRATROPIUM-ALBUTEROL 3 ML NEB INHALATION PRN (00:14)
[2023-12-07 03:49] LABS: Urine Alcohol Positive (Negative); Urine Barbiturate Negative (Negative); Urine Cocaine Negative (Negative); Urine Methadone Negative (Negative); Urine Opiates Negative (Negative); Urine Phencyclidine Negative (Negative)
[2023-12-07 06:08] LABS: Glucose,Whole Blood 133 mg/dL (70-110)
[2023-12-07] MEDS: LORazepam 1 MG TAB PO PRN (06:09)
[2023-12-07 06:31] LABS: Basophils % (A) 0 %; Eosinophils % (A) 0 %; HCT 33.7 % (39.0-53.0); HGB 11.3 gm/dL (13.0-17.5); Lymphocytes # (A) 0.2 k/uL (1.0-4.8); Lymphocytes % (A) 5 %; MCHC 33.5 g/dL (31.0-37.0); MCV 95.3 fL (80.0-100.0); Mean Platelet Volume 7.9; Monocytes # (A) 0.3 k/uL (0-1.0); Monocytes % (A) 6 %; Neutrophils # (A) 4.7 k/uL (1.3-7.7); Neutrophils % (A) 89 %; Platelet Count 296 k/uL (150-450); RBC 3.53 m/uL (4.30-5.90); RDW 15.4 % (11.5-15.5); WBC 5.2 k/uL (3.8-10.6)
[2023-12-07 06:48] LABS: ALT 45 U/L (4-49); AST 51 U/L (17-59); African American GFR (CKD) >90 (>60 ml/min/1.73 sqM); Albumin 3.2 g/dL (3.5-5.0); Alkaline Phosphatase 95 U/L (38-126); Anion Gap 1 mmol/L; Blood Urea Nitrogen 6 mg/dL (9-20); Calcium 8.4 mg/dL (8.4-10.2); Carbon Dioxide 34 mmol/L (22-30); Chloride 89 mmol/L (98-107); Glucose 121 mg/dL (74-99); Non-African American GFR(CKD) >90 (>60 ml/min/1.73 sqM); Potassium 4.2 mmol/L (3.5-5.1); Sodium 124 mmol/L (137-145); Total Bilirubin 1.1 mg/dL (0.2-1.3); Total Protein 5.6 g/dL (6.3-8.2)
[2023-12-07] MEDS ORDERED: AZITHROMYCIN 500 MG in SODIUM CHLORIDE 0.9% 250 ML IVPB SCH (09:00)
[2023-12-07] MEDS: NICOTINE 21MG/24HR PATCH TRANSDERM SCH (09:21)
[2023-12-07] MEDS: CHOLECALCIFEROL 25 MCG (1000 IU) TABLET PO SCH (09:21)
[2023-12-07] MEDS: FOLIC ACID 1 MG TAB PO SCH (09:21)
[2023-12-07] MEDS: PANTOPRAZOLE 40 MG TABLET PO SCH (09:21)
[2023-12-07] MEDS: THIAMINE 100 MG TAB PO SCH (09:21)
[2023-12-07] MEDS: ISOSORBIDE MONONITRATE ER 30 MG TAB.ER.24H PO SCH (09:22)
[2023-12-07] MEDS: ASPIRIN 81 MG PO SCH (09:22)
[2023-12-07] MEDS: MULTIVITAMINS, THERA 1 EACH TAB PO SCH (09:22)
[2023-12-07] MEDS: IPRATROPIUM 0.5 MG/2.5 ML NEBU INHALATION SCH (09:53)
--- NOTE | 2023-12-07 10:21 | P.PN ---
Subjective Progress Note Date: 12/07/23 Principal diagnosis: Shortness of breath This is a 63-year-old male patient with a known history of severe chronic obstructive pulmonary disease, chronic and ongoing tobacco dependence, daily alcohol use, marijuana use, coronary disease with previous stent placement, hypertension, hyperlipidemia, atrial fibrillation. He presented here to the emergency room earlier this morning with complaints of shortness of breath. He states he had stopped drinking alcohol but did admit to having 1 beer this morning. Chest x-ray shows evidence of hyperinflation compatible with COPD but no acute pulmonary process. White count 13.6. Hemoglobin 12.9. Platelets 375. Sodium 120. Potassium 3.9. Bicarb 30. BUN 3. Creatinine 0.32. Glucose 99. AST 64. ALT 52. Serum alcohol level 94. He was having increased work of breathing. He is seen in the emergency department. He is on BiPAP 10/5 and 40% FiO2. He is currently on a Cardizem drip at 5 mg/h. He does have lower extremity edema 1-2+. Sinus tachycardia on monitor. Progress note dated December 07 2023. Patient is a 63-year-old male with a known history of COPD, chronic and ongoing tobacco dependence, daily alcohol use, marijuana use, CAD with previous stent placement, hypertension, hyperlipidemia and atrial fibrillation with RVR. He presented to the ED yesterday with complaints of shortness of breath. He was seen today in room 379 and he was on 3 L of oxygen. Uses BiPAP machine at night with IPAP of 10 cmH2O, EPAP of 5 cm H2O and FiO2 40%. Alcohol withdrawal tremors were noted. Cardizem drip at 5mg/hr. He is not on any fluids. Pro-Bennie level 0.06. Continue lorazepam, Solu-Medrol, DuoNeb, budesonide and f ormoterol.Patient educated about quitting alcohol and smoking for good. Nicotine 21mg/24hr patch order has been placed. Zithromax has been discontinued. [facility] protocol with thiamine. Labs show WBC 5.2, Hb 7.3, platelets 296, Na 124,K 4.2, Cl 89, BUN 6, Creatinine 0.31, glucose 121. Total protein 5.6 and albumin 3.2. Prognosis is guarded. Will continue to follow and make recommendations. Objective - Vital Signs Vital signs: Vital Signs Temp 98.7 F 12/07/23 03:20 Pulse 82 12/07/23 09:50 Resp 20 12/07/23 09:50 BP 126/80 12/07/23 03:20 Pulse Ox 95 12/07/23 09:34 FiO2 40 12/07/23 09:34 Intake & Output 12/06/23 12/07/23 12/07/23 18:59 06:59 18:59 Intake Total 346 Output Total 300 600 Balance -300 -600 346 Weight 54.431 kg 54.1 kg Intake: Oral 346 Output: Urine 300 600 Other: Voiding Method Urinal # Voids 1 - Exam GENERAL EXAM: Alert, disheveled 63-year-old male, on BiPAP 10/5 and 40% FiO2, fairly comfortable in no apparent distress. Alcohol withdrawal tremors HEAD: Normocephalic. EYES: Normal reaction of pupils, equal size. NOSE: Clear with pink turbinates. THROAT: No erythema or exudates. NECK: No masses, no JVD. CHEST: No chest wall deformity. LUNGS: Equal air entry with no crackles, wheeze, rhonchi or dullness. Diminished throughout CVS: S1 and S2 normal with no audible murmur, regular rhythm. ABDOMEN: No hepatosplenomegaly, normal bowel sounds, no guarding or rigidity. SPINE: No scoliosis or deformity SKIN: No rashes CENTRAL NERVOUS SYSTEM: No focal deficits, tone is normal in all 4 extremities. EXTREMITIES: There is 1-2+ lower extremity peripheral edema. No clubbing, no cyanosis. Peripheral pulses are intact. - Labs CBC & Chem 7: 12/07/23 06:17 12/07/23 06:17 Labs: Abnormal Lab Results - Last 24 Hours (Table) 12/06/23 12/06/23 12/06/23 Range/Units 10:06 11:05 11:05 WBC 13.6 H (3.8-10.6) k/uL RBC 4.10 L (4.30-5.90) m/uL Hgb 12.9 L (13.0-17.5) gm/dL Hct 37.9 L (39.0-53.0) % Neutrophils # 11.8 H (1.3-7.7) k/uL Lymphocytes # 0.6 L (1.0-4.8) k/uL PT 9.9 L (10.0-12.5) sec Sodium (137-145) mmol/L Chloride (98-107) mmol/L Carbon Dioxide (22-30) mmol/L BUN (9-20) mg/dL Creatinine (0.66-1.25) mg/dL Glucose (74-99) mg/dL POC Glucose (mg/dL) (70-110) mg/dL Plasma Lactic Acid Ned 5.3 H* (0.7-2.0) mmol/L AST (17-59) U/L ALT (4-49) U/L Total Protein (6.3-8.2) g/dL Albumin (3.5-5.0) g/dL Urine Ketones (Negative) Ur Random Sodium (40-220) mmol/L Urine Alcohol (Negative) 12/06/23 12/06/23 12/06/23 Range/Units 11:05 14:30 18:30 WBC (3.8-10.6) k/uL RBC (4.30-5.90) m/uL Hgb (13.0-17.5) gm/dL Hct (39.0-53.0) % Neutrophils # (1.3-7.7) k/uL Lymphocytes # (1.0-4.8) k/uL PT (10.0-12.5) sec Sodium 120 L (137-145) mmol/L Chloride 81 L (98-107) mmol/L Carbon Dioxide (22-30) mmol/L BUN 3 L (9-20) mg/dL Creatinine 0.32 L (0.66-1.25) mg/dL Glucose (74-99) mg/dL POC Glucose (mg/dL) (70-110) mg/dL Plasma Lactic Acid Ned 2.5 H* (0.7-2.0) mmol/L AST 64 H (17-59) U/L ALT 52 H (4-49) U/L Total Protein 6.0 L (6.3-8.2) g/dL Albumin (3.5-5.0) g/dL Urine Ketones Trace H (Negative) Ur Random Sodium (40-220) mmol/L Urine Alcohol (Negative) 12/06/23 12/06/23 12/06/23 Range/Units 18:30 18:30 20:01 WBC (3.8-10.6) k/uL RBC (4.30-5.90) m/uL Hgb (13.0-17.5) gm/dL Hct (39.0-53.0) % Neutrophils # (1.3-7.7) k/uL Lymphocytes # (1.0-4.8) k/uL PT (10.0-12.5) sec Sodium (137-145) mmol/L Chloride (98-107) mmol/L Carbon Dioxide (22-30) mmol/L BUN (9-20) mg/dL Creatinine (0.66-1.25) mg/dL Glucose (74-99) mg/dL POC Glucose (mg/dL) 183 H (70-110) mg/dL Plasma Lactic Acid Ned (0.7-2.0) mmol/L AST (17-59) U/L ALT (4-49) U/L Total Protein (6.3-8.2) g/dL Albumin (3.5-5.0) g/dL Urine Ketones (Negative) Ur Random Sodium <20 L (40-220) mmol/L Urine Alcohol Positive A (Negative) 12/07/23 12/07/23 12/07/23 Range/Units 06:07 06:17 06:17 WBC (3.8-10.6) k/uL RBC 3.53 L (4.30-5.90) m/uL Hgb 11.3 L (13.0-17.5) gm/dL Hct 33.7 L (39.0-53.0) % Neutrophils # (1.3-7.7) k/uL Lymphocytes # 0.2 L (1.0-4.8) k/uL PT (10.0-12.5) sec Sodium 124 L (137-145) mmol/L Chloride 89 L (98-107) mmol/L Carbon Dioxide 34 H (22-30) mmol/L BUN 6 L (9-20) mg/dL Creatinine 0.31 L (0.66-1.25) mg/dL Glucose 121 H (74-99) mg/dL POC Glucose (mg/dL) 133 H (70-110) mg/dL Plasma Lactic Acid Ned (0.7-2.0) mmol/L AST (17-59) U/L ALT (4-49) U/L Total Protein 5.6 L (6.3-8.2) g/dL Albumin 3.2 L (3.5-5.0) g/dL Urine Ketones (Negative) Ur Random Sodium (40-220) mmol/L Urine Alcohol (Negative) Assessment and Plan Assessment: Acute on chronic hypoxemic respiratory failure secondary to an acute exacerbation of chronic obstructive pulmonary disease currently requiring BiPAP 10/5 and 40% FiO2 Oxygen dependent COPD Obstructive sleep apnea Chronic and ongoing tobacco dependence Daily alcohol use, alcohol level 94 this morning Coronary artery disease with previous stent placements Peripheral vascular disease with femoral bypass History of atrial fibrillation Hypertension Hyperlipidemia Marijuana use Plan: The patient was seen and evaluated Chest x-ray, labs and medications reviewed Azithromycin has been discontinued Continue DuoNeb inhalations Continue budesonide and formoterol Continue Solu-Medrol 60 mg every 6 hours Titrate the FiO2 as tolerated Check a proBNP Remains on a Cardizem drip 5mg/hr Educated regarding the importance of complete smoking cessation Nicotine 21mg/24hr patch ordered Educated regarding alcohol cessation Lorazepam 2 mg Thiamine 100 mg GI prophylaxis DVT prophylaxis We will continue to follow and make further recommendations based on his clinical status Time spent with patient: 20 minutes Time with Patient: Less than 30
--- NOTE | 2023-12-07 10:49 | P.CRDCN ---
History of Present Illness Consult date: 12/07/23 History of present illness: The patient is a pleasant 63-year-old gentleman who is known to our service from before with a past medical history significant for CAD with prior stenting of the RCA and LAD and known intermediate disease involving the left circumflex as well as hypertension and dyslipidemia and smoking and COPD and excessive alcohol use and history of gastrointestinal bleeding and chronic hypoxic respiratory failure. The patient presented to the hospital complaining of increasing shortness of breath associated with heart racing and fluttering but no dizziness or lightheadedness and no presyncope or syncope and no symptoms of chest pain or chest discomfort. Unfortunately he continues to smoke and unfortunately continues to drink with the last time he was drinking alcohol earlier this morning. He was found to be in A-fib with RVR and subsequently was started on Cardizem IV and converted to normal sinus mechanism. He is feeling somewhat better. No symptoms of any chest pain or chest discomfort. He underwent an EKG which showed atrial fibrillation with RVR with diffuse nonspecific ST and T wave abnormalities. He is on beta-radha. The echocardiogram from recent admission showed preserved LV systolic function and with that being said I am going to stop the beta-radha and start the patient on Cardizem orally giving the severe COPD. Beside that he cannot take any oral anticoagulation giving the history of gastrointestinal bleeding before. He need to be evaluated for left atrial appendage closure as an outpatient. The examination is remarkable for distant heart sounds with regular rhythm and diminished breathing sounds bilaterally and no edema was noted in the lower extremities Assessment Chronic hypoxic respiratory failure COPD Excessive alcohol use A-fib with RVR which is paroxysmal CAD as described above Multiple comorbid conditions Plan DC metoprolol and start the patient on Cardizem orally DC Cardizem IV Follow-up with the patient Past Medical History Past Medical History: Atrial Fibrillation, Coronary Artery Disease (CAD), COPD, Deep Vein Thrombosis (DVT), GERD/Reflux, GI Bleed, Hyperlipidemia, Hypertension, Osteoarthritis (OA), Pneumonia, Sleep Apnea/CPAP/BIPAP Additional Past Medical History / Comment(s): DVT- LEFT LEG, CPAP, pt uses 3 liters 02 when active and at night with cpap. pt has portable 02 History of Any Multi-Drug Resistant Organisms: MRSA Date of last positivie culture/infection: 03/01/22 MRSA MDRO Source:: Right Axilla Past Surgical History: Heart Catheterization With Stent, Orthopedic Surgery Additional Past Surgical History / Comment(s): ABD AORTOGRAM. Other SX: (construction accident balcony fell from building)HAD CRUSHING INJURY TO ANKLES HAD FUSION DONE JOSE ALBERTO, LT FOOT TOE PARTIAL AMP. CHEST TUBE FOR PNEUMOTHORAX. SURGERY TO REMOVE BLOOD CLOT FROM LEG. Bronchial washings/lavage, EGD. femoral bypass,heart stents x3 Past Anesthesia/Blood Transfusion Reactions: No Reported Reaction Additional Past Anesthesia/Blood Transfusion Reaction / Comment(s): Pt states he has never received blood. Date of Last Stent Placement:: 04/2021 Past Psychological History: No Psychological Hx Reported Additional Psychological History / Comment(s): Pt lives alone in an apartment. He is normally independent. He does not drive- he uses the bus to get places. He uses a cane to ambulate. Smoking Status: Current every day smoker Past Alcohol Use History: Abuse Additional Past Alcohol Use History / Comment(s): ETOH and smoking, pt smokes .5 packs/ day Past Drug Use History: Marijuana Additional Drug Use History / Comment(s): cbd gummies - Past Family History Father Family Medical History: Coronary Artery Disease (CAD), Diabetes Mellitus, Myocardial Infarction ([place]), Pulmonary Embolus Additional Family Medical History / Comment(s): PE Mother Family Medical History: CVA/TIA Medications and Allergies Home Medications Medication Instructions Recorded Confirmed Type Albuterol Sulfate [Ventolin HFA] 2 puff INHALATION RT-Q6H PRN 11/13/14 12/06/23 History Metoprolol Tartrate 25 mg PO BID 07/27/15 12/06/23 History Albuterol Nebulized [Ventolin 2.5 mg INHALATION RT-TID 12/15/21 12/06/23 History Nebulized] Pantoprazole Sodium 20 mg PO DAILY 12/15/21 12/06/23 History Ibuprofen 800 mg PO Q8H PRN 12/10/22 12/06/23 History Atorvastatin Calcium [Lipitor] 80 mg PO HS 06/11/23 12/06/23 History Cholecalciferol [Vitamin D3 (25 50 mcg PO DAILY 06/11/23 12/06/23 History Mcg = 1000 Iu)] Aspirin EC [Ecotrin Low Dose] 81 mg PO DAILY 10/05/23 12/06/23 History ALPRAZolam [Xanax] 0.5 mg PO Q12H PRN #2 tab 10/11/23 12/06/23 Rx Folic Acid 1 mg PO DAILY tab 10/11/23 12/06/23 Rx Ipratropium-Albuterol Nebulize 3 ml INHALATION RT-Q4H PRN each 10/11/23 12/06/23 Rx [Duoneb 0.5 mg-3 mg/3 ml Soln] Thiamine [Vitamin B-1] 100 mg PO DAILY tab 10/11/23 12/06/23 Rx Gabapentin 600 mg PO TID PRN 11/16/23 12/06/23 History HYDROcodone/APAP 5-325MG [[place] 1 tab PO Q6H PRN 11/16/23 12/06/23 History 5-325] Ipratropium-Albuterol Nebulize 3 ml INHALATION RT-QID 11/16/23 12/06/23 History [Duoneb 0.5 mg-3 mg/3 ml Soln] Multivitamins, Thera [Multivitamin 1 tab PO DAILY 11/16/23 12/06/23 History (formulary)] hydrOXYzine HCL [Atarax] 10 mg PO TID PRN 11/16/23 12/06/23 History Isosorbide Mononitrate ER [Imdur] 15 mg PO DAILY 11/25/23 12/06/23 History guaiFENesin-DM 600/30MG [Mucinex 2 tab PO Q12HR 11/25/23 12/06/23 History Dm] Fluticasone/Umeclidin/Vilanter 1 puff INHALATION RT-DAILY 12/06/23 12/06/23 History [Trelegy Ellipta 200-62.5-25] predniSONE 10 mg PO DAILY 12/06/23 12/06/23 History Allergies Allergy/AdvReac Type Severity Reaction Status Date / Time No Known Allergies Allergy Verified 12/06/23 10:59 Physical Exam Vitals: Vital Signs Temp Pulse Pulse Pulse Resp BP BP 12/07/23 09:50 82 20 12/07/23 09:44 84 20 12/07/23 09:34 82 20 12/07/23 08:00 97.8 F 86 18 121/73 12/07/23 03:25 12/07/23 03:20 98.7 F 67 21 126/80 12/07/23 00:28 69 12/07/23 00:14 69 12/06/23 23:13 98.3 F 78 18 131/86 12/06/23 21:19 111 H 12/06/23 21:08 108 H 12/06/23 21:07 108 H 12/06/23 20:58 107 H 12/06/23 20:00 98.1 F 105 H 18 133/86 12/06/23 17:30 98.6 F 105 H 105 H 20 132/82 12/06/23 16:59 96 20 111/74 12/06/23 16:12 107 H 20 118/84 12/06/23 15:10 117 H 19 12/06/23 15:04 104 H 20 117/83 12/06/23 15:01 101 H 20 12/06/23 14:30 97.6 F 110 H 20 96/73 12/06/23 13:49 112 H 20 104/76 12/06/23 13:07 165 H 22 94/64 12/06/23 12:30 156 H 18 93/77 12/06/23 12:12 160 H 18 100/62 12/06/23 11:45 113 H 18 103/72 12/06/23 11:03 120 H 18 95/75 Pulse Ox FiO2 12/07/23 09:50 12/07/23 09:44 12/07/23 09:34 95 40 12/07/23 08:00 95 12/07/23 03:25 40 12/07/23 03:20 100 40 12/07/23 00:28 12/07/23 00:14 40 12/06/23 23:13 99 12/06/23 21:19 12/06/23 21:08 12/06/23 21:07 12/06/23 20:58 12/06/23 20:00 100 40 12/06/23 17:30 98 12/06/23 16:59 97 12/06/23 16:12 98 12/06/23 15:10 12/06/23 15:04 97 12/06/23 15:01 40 12/06/23 14:30 98 12/06/23 13:49 97 12/06/23 13:07 97 12/06/23 12:30 97 12/06/23 12:12 99 12/06/23 11:45 97 12/06/23 11:03 97 Intake and Output 12/06/23 12/07/23 12/07/23 22:59 06:59 14:59 Intake Total 346 Output Total 650 250 250 Balance -650 -250 96 Intake: Oral 346 Output: Urine 650 250 250 Other: Voiding Method Urinal Urinal # Voids 1 1 Weight 54.431 kg 54.1 kg Results 12/07/23 06:17 12/07/23 06:17 Cardiac Enzymes 12/06/23 12/06/23 12/06/23 Range/Units 11:05 15:00 18:22 AST 64 H (17-59) U/L Troponin I <0.012 <0.012 (0.000-0.034) ng/mL 12/07/23 Range/Units 06:17 AST 51 (17-59) U/L Troponin I (0.000-0.034) ng/mL Coagulation 12/06/23 Range/Units 11:05 PT 9.9 L (10.0-12.5) sec APTT 26.2 (22.0-30.0) sec CBC 12/07/23 Range/Units 06:17 WBC 5.2 (3.8-10.6) k/uL RBC 3.53 L (4.30-5.90) m/uL Hgb 11.3 L (13.0-17.5) gm/dL Hct 33.7 L (39.0-53.0) % Plt Count 296 (150-450) k/uL Comprehensive Metabolic Panel 12/06/23 12/07/23 Range/Units 11:05 06:17 Sodium 120 L 124 L (137-145) mmol/L Potassium 3.9 4.2 (3.5-5.1) mmol/L Chloride 81 L 89 L (98-107) mmol/L Carbon Dioxide 30 34 H (22-30) mmol/L BUN 3 L 6 L (9-20) mg/dL Creatinine 0.32 L 0.31 L (0.66-1.25) mg/dL Glucose 99 121 H (74-99) mg/dL Calcium 8.4 8.4 (8.4-10.2) mg/dL AST 64 H 51 (17-59) U/L ALT 52 H 45 (4-49) U/L Alkaline Phosphatase 119 95 (38-126) U/L Total Protein 6.0 L 5.6 L (6.3-8.2) g/dL Albumin 3.7 3.2 L (3.5-5.0) g/dL Current Medications Generic Name Dose Route Start Last Admin Trade Name Freq PRN Reason Stop Dose Admin Hydrocodone Bitart/Acetaminophen 1 each 12/06/23 13:29 Hydrocodone/Apap 5-325mg 1 Each Tab PO Q6H PRN Pain Albuterol/Ipratropium 3 ml 12/06/23 16:00 12/07/23 09:33 Ipratropium-Albuterol 3 Ml Neb INHALATION 3 ml RT-QID PRIYANKA Administration Albuterol/Ipratropium 3 ml 12/06/23 14:04 12/07/23 00:14 Ipratropium-Albuterol 3 Ml Neb INHALATION 3 ml RT-Q2H PRN Administration Shortness Of Breath Or Wheezing Aspirin 81 mg 12/07/23 09:00 12/07/23 09:22 Aspirin 81 Mg PO 81 mg DAILY PRIYANKA Administration Atorvastatin Calcium 80 mg 12/06/23 21:00 12/06/23 20:43 Atorvastatin 80 Mg Tab PO 80 mg HS PRIYANKA Administration Budesonide 1 mg 12/06/23 20:00 12/07/23 09:33 Budesonide 1 Mg/2 Ml Nebu INHALATION 1 mg RT-BID PRIYANKA Administration Cholecalciferol 50 mcg 12/07/23 09:00 12/07/23 09:21 Cholecalciferol 25 Mcg (1000 Iu) Tablet PO 50 mcg DAILY PRIYANKA Administration Diltiazem HCl 30 mg 12/07/23 10:45 Diltiazem Oral 30 Mg Tab PO TID PRIYANKA Folic Acid 1 mg 12/07/23 09:00 12/07/23 09:21 Folic Acid 1 Mg Tab PO 1 mg DAILY PRIYANKA Administration Formoterol Fumarate 20 mcg 12/06/23 20:00 12/07/23 09:33 Formoterol Fumarate 20 Mcg/2 Ml Nebu INHALATION 20 mcg RT-BID PRIYANKA Administration Gabapentin 600 mg 12/06/23 13:29 Gabapentin 300 Mg Cap PO TID PRN nerve pain Guaifenesin/Dextromethorphan 2 each 12/06/23 21:00 12/07/23 09:21 Guaifenesin-Dm 600/30mg 1 Each Tab.Er.12h PO 2 each Q12HR PRIYANKA Administration Heparin Sodium (Porcine) 5,000 unit 12/06/23 21:00 12/07/23 09:21 Heparin Sodium,Porcine 5,000 Unit/Ml 1 Ml Vial SQ 5,000 unit Q12HR PRIYANKA Administration Isosorbide Mononitrate 15 mg 12/07/23 09:00 12/07/23 09:22 Isosorbide Mononitrate Er 30 Mg Tab.Er.24h PO 15 mg DAILY PRIYANKA Administration Lorazepam 2 mg 12/06/23 15:04 12/07/23 09:21 Lorazepam 1 Mg Tab PO 2 mg Q3HR PRN Administration [place] 8 To 9 Lorazepam 2 mg 12/06/23 15:04 12/07/23 04:20 Lorazepam 1 Mg Tab PO 2 mg Q2HR PRN Administration [place] 10 or greater Lorazepam 1 mg 12/06/23 15:04 12/07/23 03:18 Lorazepam 1 Mg Tab PO 1 mg Q4HR PRN Administration [place] 6 To 7 Lorazepam 0.5 mg 12/06/23 15:04 Lorazepam 0.5 Mg Tab PO Q4HR PRN [place] 4 To 5 Lorazepam 2 mg 12/06/23 15:04 Lorazepam 2 Mg/Ml Inj IV Q6HR PRN Seizures Methylprednisolone Sodium Succinate 60 mg 12/06/23 18:00 12/07/23 06:10 Methylprednisolone Sod Succi 125 Mg/2 Ml Vial IV 60 mg Q6HR PRIYANKA Administration Metoprolol Tartrate 25 mg 12/06/23 21:00 12/07/23 09:22 Metoprolol Tartrate 25 Mg Tab PO 25 mg BID PRIYANKA Administration Multivitamins 1 each 12/07/23 09:00 12/07/23 09:22 Multivitamins, Thera 1 Each Tab PO 1 each DAILY PRIYANKA Administration Naloxone HCl 0.2 mg 12/06/23 13:38 Naloxone 0.4 Mg/Ml 1 Ml Vial IV Q2M PRN Opioid Reversal Nicotine 1 patch 12/07/23 09:15 12/07/23 09:21 Nicotine 21mg/24hr Patch TRANSDERM 1 patch DAILY PRIYANKA Administration Pantoprazole Sodium 40 mg 12/07/23 09:00 12/07/23 09:21 Pantoprazole 40 Mg Tablet PO 40 mg DAILY PRIYANKA Administration Thiamine HCl 100 mg 12/07/23 09:00 12/07/23 09:21 Thiamine 100 Mg Tab PO 100 mg DAILY PRIYANKA Administration Intake and Output 12/06/23 12/07/23 12/07/23 22:59 06:59 14:59 Intake Total 346 Output Total 650 250 250 Balance -650 -250 96 Intake: Oral 346 Output: Urine 650 250 250 Other: Voiding Method Urinal Urinal # Voids 1 1 Weight 54.431 kg 54.1 kg 12/07/23 06:17 12/07/23 06:17
[2023-12-07 11:25] LABS: Glucose,Whole Blood 192 mg/dL (70-110)
[2023-12-07] MEDS: LORazepam 2 MG/ML INJ IV PRN ×3 (12:45→23:53)
[2023-12-07] MEDS: ONDANSETRON 4 MG/2 ML VIAL IVP PRN (12:45)
--- NOTE | 2023-12-07 13:40 | P.NPCON ---
History of Present Illness - Reason for Consult hyponatremia - History of Present Illness Patient is a 63-year-old male with history of EtOH abuse, A. fib, COPD, hypertension who was admitted to the hospital with complaints of shortness of breath and concern for alcohol withdrawal. Patient admits to drinking 15-25 cans of beer per day. He has also had some chest discomfort. Noted to be in A. fib with RVR on initial admission. Serum sodium was 120 on admission. Patient received normal saline and sodium has improved to 124 this morning. Currently not on any IV fluids. EtOH level 94 no significant complaints currently. S/p Cardizem drip with heart rate now in the 80s. Review of Systems as per HPI Past Medical History Past Medical History: Atrial Fibrillation, Coronary Artery Disease (CAD), COPD, Deep Vein Thrombosis (DVT), GERD/Reflux, GI Bleed, Hyperlipidemia, Hypertension, Osteoarthritis (OA), Pneumonia, Sleep Apnea/CPAP/BIPAP Additional Past Medical History / Comment(s): DVT- LEFT LEG, CPAP, pt uses 3 liters 02 when active and at night with cpap. pt has portable 02 History of Any Multi-Drug Resistant Organisms: MRSA Date of last positivie culture/infection: 03/01/22 MRSA MDRO Source:: Right Axilla Past Surgical History: Heart Catheterization With Stent, Orthopedic Surgery Additional Past Surgical History / Comment(s): ABD AORTOGRAM. Other SX: (construction accident balcony fell from building)HAD CRUSHING INJURY TO ANKLES HAD FUSION DONE JOSE ALBERTO, LT FOOT TOE PARTIAL AMP. CHEST TUBE FOR PNEUMOTHORAX. SURGERY TO REMOVE BLOOD CLOT FROM LEG. Bronchial washings/lavage, EGD. femoral bypass,heart stents x3 Past Anesthesia/Blood Transfusion Reactions: No Reported Reaction Additional Past Anesthesia/Blood Transfusion Reaction / Comment(s): Pt states he has never received blood. Date of Last Stent Placement:: 04/2021 Past Psychological History: No Psychological Hx Reported Additional Psychological History / Comment(s): Pt lives alone in an apartment. He is normally independent. He does not drive- he uses the bus to get places. He uses a cane to ambulate. Smoking Status: Current every day smoker Past Alcohol Use History: Abuse Additional Past Alcohol Use History / Comment(s): ETOH and smoking, pt smokes .5 packs/ day Past Drug Use History: Marijuana Additional Drug Use History / Comment(s): cbd gummies - Past Family History Father Family Medical History: Coronary Artery Disease (CAD), Diabetes Mellitus, Myocardial Infarction ([place]), Pulmonary Embolus Additional Family Medical History / Comment(s): PE Mother Family Medical History: CVA/TIA Medications and Allergies Home Medications Medication Instructions Recorded Confirmed Type Albuterol Sulfate [Ventolin HFA] 2 puff INHALATION RT-Q6H PRN 11/13/14 12/06/23 History Metoprolol Tartrate 25 mg PO BID 07/27/15 12/06/23 History Albuterol Nebulized [Ventolin 2.5 mg INHALATION RT-TID 12/15/21 12/06/23 History Nebulized] Pantoprazole Sodium 20 mg PO DAILY 12/15/21 12/06/23 History Ibuprofen 800 mg PO Q8H PRN 12/10/22 12/06/23 History Atorvastatin Calcium [Lipitor] 80 mg PO HS 06/11/23 12/06/23 History Cholecalciferol [Vitamin D3 (25 50 mcg PO DAILY 06/11/23 12/06/23 History Mcg = 1000 Iu)] Aspirin EC [Ecotrin Low Dose] 81 mg PO DAILY 10/05/23 12/06/23 History ALPRAZolam [Xanax] 0.5 mg PO Q12H PRN #2 tab 10/11/23 12/06/23 Rx Folic Acid 1 mg PO DAILY tab 10/11/23 12/06/23 Rx Ipratropium-Albuterol Nebulize 3 ml INHALATION RT-Q4H PRN each 10/11/23 12/06/23 Rx [Duoneb 0.5 mg-3 mg/3 ml Soln] Thiamine [Vitamin B-1] 100 mg PO DAILY tab 10/11/23 12/06/23 Rx Gabapentin 600 mg PO TID PRN 11/16/23 12/06/23 History HYDROcodone/APAP 5-325MG [[place] 1 tab PO Q6H PRN 11/16/23 12/06/23 History 5-325] Ipratropium-Albuterol Nebulize 3 ml INHALATION RT-QID 11/16/23 12/06/23 History [Duoneb 0.5 mg-3 mg/3 ml Soln] Multivitamins, Thera [Multivitamin 1 tab PO DAILY 11/16/23 12/06/23 History (formulary)] hydrOXYzine HCL [Atarax] 10 mg PO TID PRN 11/16/23 12/06/23 History Isosorbide Mononitrate ER [Imdur] 15 mg PO DAILY 11/25/23 12/06/23 History guaiFENesin-DM 600/30MG [Mucinex 2 tab PO Q12HR 11/25/23 12/06/23 History Dm] Fluticasone/Umeclidin/Vilanter 1 puff INHALATION RT-DAILY 12/06/23 12/06/23 His tory [Trelegy Ellipta 200-62.5-25] predniSONE 10 mg PO DAILY 12/06/23 12/06/23 History Allergies Allergy/AdvReac Type Severity Reaction Status Date / Time No Known Allergies Allergy Verified 12/06/23 10:59 Physical Exam Vitals: Vital Signs Temp Pulse Pulse Pulse Resp BP BP 12/07/23 09:50 82 20 12/07/23 09:44 84 20 12/07/23 09:34 82 20 12/07/23 08:00 97.8 F 105 H 86 20 121/73 12/07/23 03:25 12/07/23 03:20 98.7 F 67 21 126/80 12/07/23 00:28 69 12/07/23 00:14 69 12/06/23 23:13 98.3 F 78 18 131/86 12/06/23 21:19 111 H 12/06/23 21:08 108 H 12/06/23 21:07 108 H 12/06/23 20:58 107 H 12/06/23 20:00 98.1 F 105 H 18 133/86 12/06/23 17:30 98.6 F 105 H 105 H 20 132/82 12/06/23 16:59 96 20 111/74 12/06/23 16:12 107 H 20 118/84 12/06/23 15:10 117 H 19 12/06/23 15:04 104 H 20 117/83 12/06/23 15:01 101 H 20 12/06/23 14:30 97.6 F 110 H 20 96/73 12/06/23 13:49 112 H 20 104/76 Pulse Ox FiO2 12/07/23 09:50 12/07/23 09:44 12/07/23 09:34 95 40 12/07/23 08:00 95 12/07/23 03:25 40 12/07/23 03:20 100 40 12/07/23 00:28 12/07/23 00:14 40 12/06/23 23:13 99 12/06/23 21:19 12/06/23 21:08 12/06/23 21:07 12/06/23 20:58 12/06/23 20:00 100 40 12/06/23 17:30 98 12/06/23 16:59 97 12/06/23 16:12 98 12/06/23 15:10 12/06/23 15:04 97 12/06/23 15:01 40 12/06/23 14:30 98 12/06/23 13:49 97 Intake and Output 12/06/23 12/07/23 12/07/23 22:59 06:59 14:59 Intake Total 582 Output Total 650 250 250 Balance -650 -250 332 Intake: Oral 582 Output: Urine 650 250 250 Other: Voiding Method Urinal Urinal # Voids 1 1 Weight 54.431 kg 54.1 kg patient is awake, comfortable, in no acute distress. 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 Hyponatremia secondary to significant alcohol intake and poor nutrition and decrease urinary solute. Improved post normal saline. 2. A. fib with RVR status post Cardizem drip with improvement in heart rate 3. History of EtOH abuse 4. COPD Plan: repeat sodium this afternoon and resume saline based on sodium level. Avoid rapid correction Patient is encouraged to increase oral intake particularly protein. Repeat labs in a.m. check urine osmolality and random urine sodium. Thank you for the consultation. We will continue to follow the patient with you during his hospitalization.
[2023-12-07 16:37] LABS: Glucose,Whole Blood 260 mg/dL (70-110)
[2023-12-07] MEDS: DILTIAZEM ORAL 30 MG TAB PO SCH (17:11)
--- NOTE | 2023-12-07 18:06 | P.PN ---
Subjective This is a pleasant 63 years old male with past medical history of A-fib, coronary artery disease, COPD, DVT, GERD, hyperlipidemia, osteoarthritis, h ypertension, sleep apnea Presents because of worsening shortness of breath and alcohol withdrawal sy mptoms Patient also complaining from cough with little phlegm Chest pain with coughing Also has been complaining from diarrhea over the last 2 days stated about 10 times per day, patient looks dehydrated He has history of coronary artery disease s/p 3 stents, his dental secretary Dr. Magaña. He was taking aspirin 81 mg as he states He is complaining from bilateral leg swelling. On admission patient was tachypneic and hypoxic and he was placed on BiPAP Blood pressure was 94/64 which is hypertensive for him, he was tachycardic with heart rate 156-165, he is known case of A-fib and EKG showing A-fib with RVR of a rate of 147, troponin is negative. He has mild leukocytosis 13.6, hemoglobin 12.9, sodium 120, liver enzymes mildly elevated Lactic acid 5.3 and 2.5 Chest x-ray is negative for acute process, showed COPD changes He is currently on CIWA, Cardizem drip and given normal saline boluses. Patient was admitted with pulmonary and cardiology consult 12/07/23 Patient breathing is improving and currently at home he is on 3 L/min of oxygen with good oxygen saturation.5 Nicotine patch added He still has tremor undergoing alcohol withdrawal, no delirium but he is on CIWA Heart rate is better controlled and blood pressure improved. Cardizem 30 mg 3 times daily added by dental secretary Sodium 124 and 122, nephrology following closely. Normal saline 75 mL/h was discontinued today He remains on normal saline, IV Solu-Medrol, Zithromax and home dose of aspirin 81 mg Review of systems CONSTITUTIONAL: No fever, no malaise, no fatigue. HEENT: No recent visual problems or hearing problems. Denied any sore throat. CARDIOVASCULAR: No orthopnea, PND, no palpitations, no syncope. HEMATOLOGICAL: Denies any bleeding or petechiae. GENITOURINARY: Denies any burning micturition, frequency, or urgency. MUSCULOSKELETAL/RHEUMATOLOGICAL: Denies any joint pain, swelling, or any muscle pain. ENDOCRINE: Denies any polyuria or polydipsia. Active Medications Generic Name Dose Route Start Last Admin Trade Name Freq PRN Reason Stop Dose Admin Hydrocodone Bitart/Acetaminophen 1 each 12/06/23 13:29 Hydrocodone/Apap 5-325mg 1 Each Tab PO Q6H PRN Pain Albuterol/Ipratropium 3 ml 12/06/23 16:00 12/07/23 16:27 Ipratropium-Albuterol 3 Ml Neb INHALATION 3 ml RT-QID PRIYANKA Administration Albuterol/Ipratropium 3 ml 12/06/23 14:04 12/07/23 00:14 Ipratropium-Albuterol 3 Ml Neb INHALATION 3 ml RT-Q2H PRN Administration Shortness Of Breath Or Wheezing Aspirin 81 mg 12/07/23 09:00 12/07/23 09:22 Aspirin 81 Mg PO 81 mg DAILY PRIYANKA Administration Atorvastatin Calcium 80 mg 12/06/23 21:00 12/06/23 20:43 Atorvastatin 80 Mg Tab PO 80 mg HS PRIYANKA Administration Budesonide 1 mg 12/06/23 20:00 12/07/23 09:33 Budesonide 1 Mg/2 Ml Nebu INHALATION 1 mg RT-BID PRIYANKA Administration Cholecalciferol 50 mcg 12/07/23 09:00 12/07/23 09:21 Cholecalciferol 25 Mcg (1000 Iu) Tablet PO 50 mcg DAILY PRIYANKA Administration Diltiazem HCl 30 mg 12/07/23 11:00 12/07/23 17:17 Diltiazem Oral 30 Mg Tab PO Not Given TID PRIYANKA Folic Acid 1 mg 12/07/23 09:00 12/07/23 09:21 Folic Acid 1 Mg Tab PO 1 mg DAILY PRIYANKA Administration Formoterol Fumarate 20 mcg 12/06/23 20:00 12/07/23 09:33 Formoterol Fumarate 20 Mcg/2 Ml Nebu INHALATION 20 mcg RT-BID PRIYANKA Administration Gabapentin 600 mg 12/06/23 13:29 Gabapentin 300 Mg Cap PO TID PRN nerve pain Guaifenesin/Dextromethorphan 2 each 12/06/23 21:00 12/07/23 09:21 Guaifenesin-Dm 600/30mg 1 Each Tab.Er.12h PO 2 each Q12HR PRIYANKA Administration Heparin Sodium (Porcine) 5,000 unit 12/06/23 21:00 12/07/23 09:21 Heparin Sodium,Porcine 5,000 Unit/Ml 1 Ml Vial SQ 5,000 unit Q12HR PRIYANKA Administration Isosorbide Mononitrate 15 mg 12/07/23 09:00 12/07/23 09:22 Isosorbide Mononitrate Er 30 Mg Tab.Er.24h PO 15 mg DAILY PRIYANKA Administration Lorazepam 2 mg 12/06/23 15:04 12/07/23 09:21 Lorazepam 1 Mg Tab PO 2 mg Q3HR PRN Administration Ciwa 8 To 9 Lorazepam 2 mg 12/06/23 15:04 12/07/23 04:20 Lorazepam 1 Mg Tab PO 2 mg Q2HR PRN Administration Ciwa 10 or greater Lorazepam 1 mg 12/06/23 15:04 12/07/23 03:18 Lorazepam 1 Mg Tab PO 1 mg Q4HR PRN Administration Ciwa 6 To 7 Lorazepam 0.5 mg 12/06/23 15:04 Lorazepam 0.5 Mg Tab PO Q4HR PRN Ciwa 4 To 5 Lorazepam 2 mg 12/06/23 15:04 Lorazepam 2 Mg/Ml Inj IV Q6HR PRN Seizures Lorazepam 1 mg 12/07/23 12:25 Lorazepam 2 Mg/Ml Inj IV Q1HR PRN CIWA 10 to 15 Lorazepam 1 mg 12/07/23 12:25 12/07/23 17:12 Lorazepam 2 Mg/Ml Inj IV 1 mg Q2HR PRN Administration CIWA 8 or 9 Lorazepam 2 mg 12/07/23 12:25 12/07/23 12:45 Lorazepam 2 Mg/Ml Inj IV 12/09/23 12:26 2 mg Q10M PRN Administration CIWA 16 or higher Methylprednisolone Sodium Succinate 60 mg 12/06/23 18:00 12/07/23 17:11 Methylprednisolone Sod Succi 125 Mg/2 Ml Vial IV 60 mg Q6HR PRIYANKA Administration Metoprolol Tartrate 25 mg 12/06/23 21:00 12/07/23 09:22 Metoprolol Tartrate 25 Mg Tab PO 25 mg BID PRIYANKA Administration Multivitamins 1 each 12/07/23 09:00 12/07/23 09:22 Multivitamins, Thera 1 Each Tab PO 1 each DAILY PRIYANKA Administration Naloxone HCl 0.2 mg 12/06/23 13:38 Naloxone 0.4 Mg/Ml 1 Ml Vial IV Q2M PRN Opioid Reversal Nicotine 1 patch 12/07/23 09:15 12/07/23 09:21 Nicotine 21mg/24hr Patch TRANSDERM 1 patch DAILY PRIYANKA Administration Ondansetron HCl 4 mg 12/07/23 12:25 12/07/23 12:45 Ondansetron 4 Mg/2 Ml Vial IVP 4 mg Q6HR PRN Administration Nausea And Vomiting Pantoprazole Sodium 40 mg 12/07/23 09:00 12/07/23 09:21 Pantoprazole 40 Mg Tablet PO 40 mg DAILY PRIYANKA Administration Thiamine HCl 100 mg 12/07/23 09:00 12/07/23 09:21 Thiamine 100 Mg Tab PO 100 mg DAILY PRIYANKA Administration Objective - Vital Signs Vital signs: Vital Signs Temp 97.8 F 12/07/23 08:00 Pulse 82 12/07/23 09:50 Resp 20 12/07/23 09:50 BP 121/73 12/07/23 08:00 Pulse Ox 95 12/07/23 09:34 FiO2 40 12/07/23 09:34 Intake & Output 12/06/23 12/07/23 12/07/23 18:59 06:59 18:59 Intake Total 346 Output Total 300 600 Balance -300 -600 346 Weight 54.431 kg 54.1 kg Intake: Oral 346 Output: Urine 300 600 Other: Voiding Method Urinal # Voids 1 - Exam -GENERAL: The patient is alert and oriented x3, not in any acute distress. Generally weak, thin built HEENT: Pupils are round and equally reacting to light. EOMI. No scleral icterus. No conjunctival pallor. Normocephalic, atraumatic. No pharyngeal erythema. No thyromegaly. CARDIOVASCULAR: S1 and S2 present. No murmurs, rubs, or gallops. -PULMONARY: Chest is clear to auscultation, no crackles. Tachypneic, bilateral expiratory wheezing ABDOMEN: Soft, nontender, nondistended, normoactive bowel sounds. No palpable o rganomegaly. MUSCULOSKELETAL: No joint swelling or deformity. EXTREMITIES: No cyanosis, clubbing, or pedal edema. NEUROLOGICAL: Gross neurological examination did not reveal any focal deficits. SKIN: No rashes. no petechiae. - Labs CBC & Chem 7: 12/07/23 06:17 12/07/23 14:51 Labs: Abnormal Lab Results - Last 24 Hours (Table) 07/12/06/23 12/06/23 Range/Units 10:06 11:05 11:05 WBC 13.6 H (3.8-10.6) k/uL RBC 4.10 L (4.30-5.90) m/uL Hgb 12.9 L (13.0-17.5) gm/dL Hct 37.9 L (39.0-53.0) % Neutrophils # 11.8 H (1.3-7.7) k/uL Lymphocytes # 0.6 L (1.0-4.8) k/uL PT 9.9 L (10.0-12.5) sec Sodium (137-145) mmol/L Chloride (98-107) mmol/L Carbon Dioxide (22-30) mmol/L BUN (9-20) mg/dL Creatinine (0.66-1.25) mg/dL Glucose (74-99) mg/dL POC Glucose (mg/dL) (70-110) mg/dL Plasma Lactic Acid Ned 5.3 H* (0.7-2.0) mmol/L AST (17-59) U/L ALT (4-49) U/L Total Protein (6.3-8.2) g/dL Albumin (3.5-5.0) g/dL Urine Ketones (Negative) Ur Random Sodium (40-220) mmol/L Urine Alcohol (Negative) 12/06/23 12/06/23 12/06/23 Range/Units 11:05 14:30 18:30 WBC (3.8-10.6) k/uL RBC (4.30-5.90) m/uL Hgb (13.0-17.5) gm/dL Hct (39.0-53.0) % Neutrophils # (1.3-7.7) k/uL Lymphocytes # (1.0-4.8) k/uL PT (10.0-12.5) sec Sodium 120 L (137-145) mmol/L Chloride 81 L (98-107) mmol/L Carbon Dioxide (22-30) mmol/L BUN 3 L (9-20) mg/dL Creatinine 0.32 L (0.66-1.25) mg/dL Glucose (74-99) mg/dL POC Glucose (mg/dL) (70-110) mg/dL Plasma Lactic Acid Ned 2.5 H* (0.7-2.0) mmol/L AST 64 H (17-59) U/L ALT 52 H (4-49) U/L Total Protein 6.0 L (6.3-8.2) g/dL Albumin (3.5-5.0) g/dL Urine Ketones Trace H (Negative) Ur Random Sodium (40-220) mmol/L Urine Alcohol (Negative) 12/06/23 12/06/23 12/06/23 Range/Units 18:30 18:30 20:01 WBC (3.8-10.6) k/uL RBC (4.30-5.90) m/uL Hgb (13.0-17.5) gm/dL Hct (39.0-53.0) % Neutrophils # (1.3-7.7) k/uL Lymphocytes # (1.0-4.8) k/uL PT (10.0-12.5) sec Sodium (137-145) mmol/L Chloride (98-107) mmol/L Carbon Dioxide (22-30) mmol/L BUN (9-20) mg/dL Creatinine (0.66-1.25) mg/dL Glucose (74-99) mg/dL POC Glucose (mg/dL) 183 H (70-110) mg/dL Plasma Lactic Acid Ned (0.7-2.0) mmol/L AST (17-59) U/L ALT (4-49) U/L Total Protein (6.3-8.2) g/dL Albumin (3.5-5.0) g/dL Urine Ketones (Negative) Ur Random Sodium <20 L (40-220) mmol/L Urine Alcohol Positive A (Negative) 12/07/23 12/07/23 12/07/23 Range/Units 06:07 06:17 06:17 WBC (3.8-10.6) k/uL RBC 3.53 L (4.30-5.90) m/uL Hgb 11.3 L (13.0-17.5) gm/dL Hct 33.7 L (39.0-53.0) % Neutrophils # (1.3-7.7) k/uL Lymphocytes # 0.2 L (1.0-4.8) k/uL PT (10.0-12.5) sec Sodium 124 L (137-145) mmol/L Chloride 89 L (98-107) mmol/L Carbon Dioxide 34 H (22-30) mmol/L BUN 6 L (9-20) mg/dL Creatinine 0.31 L (0.66-1.25) mg/dL Glucose 121 H (74-99) mg/dL POC Glucose (mg/dL) 133 H (70-110) mg/dL Plasma Lactic Acid Ned (0.7-2.0) mmol/L AST (17-59) U/L ALT (4-49) U/L Total Protein 5.6 L (6.3-8.2) g/dL Albumin 3.2 L (3.5-5.0) g/dL Urine Ketones (Negative) Ur Random Sodium (40-220) mmol/L Urine Alcohol (Negative) Assessment and Plan Assessment: Acute COPD exacerbation Acute on chronic hypoxic respiratory failure Alcohol use disorder at risk of alcohol withdrawal A-fib and RVR Hypovolemic hyponatremia Hypotensive, present on admission Dehydration secondary to above Diarrhea x 2 days prior to hospitalization. Rule out C. difficile Elevated lactic acid, improvement Moderate calorie protein malnutrition Nicotine dependence Plan: Continue with IV steroids Discontinue IV hydration Monitor sodium level Continue with CIWA and thiamine Continue with the bronchodilators and inhaled steroids Continue with BiPAP as needed Pulmonary and nephrology consult Cardiology consult Labs and medication were reviewed.. Continue same treatment. Continue with symptomatic treatment. Resume home medication. Monitor labs and vitals. DVT and GI prophylaxis. Further recommendations as per clinical course of the patient DVT prophylaxis: Subcutaneous heparin GI Prophylaxis: Ppi Prognosis is guarded
[2023-12-07 20:08] LABS: Glucose,Whole Blood 209 mg/dL (70-110)
[2023-12-07] MEDS: SODIUM CHLORIDE 0.9% 1,000 ML IV SCH (23:57)
[2023-12-08 05:58] LABS: Glucose,Whole Blood 152 mg/dL (70-110)
[2023-12-08 07:32] LABS: Basophils % (A) 0 %; Eosinophils # (A) 0.1 k/uL (0-0.7); Eosinophils % (A) 1 %; HCT 35.8 % (39.0-53.0); HGB 11.7 gm/dL (13.0-17.5); Lymphocytes # (A) 0.2 k/uL (1.0-4.8); Lymphocytes % (A) 2 %; MCH 30.8 pg (25.0-35.0); MCHC 32.7 g/dL (31.0-37.0); MCV 94.2 fL (80.0-100.0); Mean Platelet Volume 7.2; Monocytes # (A) 0.2 k/uL (0-1.0); Monocytes % (A) 2 %; Neutrophils # (A) 10.2 k/uL (1.3-7.7); Neutrophils % (A) 95 %; Platelet Count 341 k/uL (150-450); RDW 15.1 % (11.5-15.5); WBC 10.8 k/uL (3.8-10.6)
[2023-12-08 08:18] LABS: African American GFR (CKD) >90 (>60 ml/min/1.73 sqM); Anion Gap 1 mmol/L; Blood Urea Nitrogen 6 mg/dL (9-20); Calcium 8.9 mg/dL (8.4-10.2); Carbon Dioxide 32 mmol/L (22-30); Chloride 93 mmol/L (98-107); Glucose 139 mg/dL (74-99); Non-African American GFR(CKD) >90 (>60 ml/min/1.73 sqM); Potassium 3.5 mmol/L (3.5-5.1); Sodium 126 mmol/L (137-145)
--- NOTE | 2023-12-08 09:03 | P.PN ---
Subjective Progress Note Date: 12/08/23 The patient is a pleasant 63-year-old gentleman who is known to our service from before with a past medical history significant for CAD with prior stenting of the RCA and LAD and known intermediate disease involving the left circumflex as well as hypertension and dyslipidemia and smoking and COPD and excessive alcohol use and history of gastrointestinal bleeding and chronic hypoxic respiratory failure. The patient presented to the hospital complaining of increasing shortness of breath associated with heart racing and fluttering but no dizziness or lightheadedness and no presyncope or syncope and no symptoms of chest pain or chest discomfort. Unfortunately he continues to smoke and unfortunately continues to drink with the last time he was drinking alcohol earlier this morning. He was found to be in A-fib with RVR and subsequently was started on Cardizem IV and converted to normal sinus mechanism. He is feeling somewhat better. No symptoms of any chest pain or chest discomfort. He underwent an EKG which showed atrial fibrillation with RVR with diffuse nonspecific ST and T wave abnormalities. He is on beta-radha. The echocardiogram from recent admission showed preserved LV systolic function and with that being said I am going to stop the beta-radha and start the patient on Cardizem orally giving the severe COPD. Beside that he cannot take any oral anticoagulation giving the history of gastrointestinal bleeding before. He need to be evaluated for left atrial appendage closure as an outpatient. The examination is remarkable for distant heart sounds with regular rhythm and diminished breathing sounds bilaterally and no edema was noted in the lower extremities December 08, 2023 The patient was seen and evaluated this morning. He is going through alcohol withdrawal. He has been maintaining normal sinus mechanism. He is on Cardizem orally at this point. He is not on any oral anticoagulation because of history of severe gastrointestinal bleeding before. He definitely need to be evaluated as an outpatient for left atrial appendage closure. The examination is rem arkable for severe diminished breathing sounds bilaterally and regular rate and rhythm with distant heart sounds and no edema was noted in the lower extremities Assessment Chronic hypoxic respiratory failure COPD Excessive alcohol use A-fib with RVR which is paroxysmal CAD as described above Multiple comorbid conditions Plan Continue the current medical regimen Continue the current dose of oral Cardizem Follow-up with the patient Objective - Vital Signs Vital signs: Vital Signs Temp 98.1 F 12/08/23 08:00 Pulse 68 12/08/23 08:58 Resp 20 12/08/23 08:00 BP 126/76 12/08/23 08:00 Pulse Ox 98 12/08/23 08:00 FiO2 40 12/08/23 08:48 Intake & Output 12/07/23 12/08/23 12/08/23 18:59 06:59 18:59 Intake Total 822 30 240 Output Total 1250 1500 1000 Balance -636 -2748 -607 Weight 54.1 kg 53.9 kg Intake: IV 30 Invasive Line 2 30 Oral 822 240 Output: Urine 1250 1500 1000 Other: Voiding Method Urinal # Voids 1 - Labs CBC & Chem 7: 12/08/23 07:17 12/08/23 07:17 Labs: Abnormal Lab Results - Last 24 Hours (Table) 12/07/23 12/07/23 12/07/23 Range/Units 11:23 14:51 16:34 WBC (3.8-10.6) k/uL RBC (4.30-5.90) m/uL Hgb (13.0-17.5) gm/dL Hct (39.0-53.0) % Neutrophils # (1.3-7.7) k/uL Lymphocytes # (1.0-4.8) k/uL Sodium 122 L (137-145) mmol/L Chloride (98-107) mmol/L Carbon Dioxide (22-30) mmol/L BUN (9-20) mg/dL Creatinine (0.66-1.25) mg/dL Glucose (74-99) mg/dL POC Glucose (mg/dL) 192 H 260 H (70-110) mg/dL 12/07/23 12/08/23 12/08/23 Range/Units 20:06 05:57 07:17 WBC 10.8 H (3.8-10.6) k/uL RBC 3.80 L (4.30-5.90) m/uL Hgb 11.7 L (13.0-17.5) gm/dL Hct 35.8 L (39.0-53.0) % Neutrophils # 10.2 H (1.3-7.7) k/uL Lymphocytes # 0.2 L (1.0-4.8) k/uL Sodium (137-145) mmol/L Chloride (98-107) mmol/L Carbon Dioxide (22-30) mmol/L BUN (9-20) mg/dL Creatinine (0.66-1.25) mg/dL Glucose (74-99) mg/dL POC Glucose (mg/dL) 209 H 152 H (70-110) mg/dL 12/08/23 Range/Units 07:17 WBC (3.8-10.6) k/uL RBC (4.30-5.90) m/uL Hgb (13.0-17.5) gm/dL Hct (39.0-53.0) % Neutrophils # (1.3-7.7) k/uL Lymphocytes # (1.0-4.8) k/uL Sodium 126 L (137-145) mmol/L Chloride 93 L (98-107) mmol/L Carbon Dioxide 32 H (22-30) mmol/L BUN 6 L (9-20) mg/dL Creatinine 0.30 L (0.66-1.25) mg/dL Glucose 139 H (74-99) mg/dL POC Glucose (mg/dL) (70-110) mg/dL Microbiology - Last 24 Hours (Table) 12/06/23 14:10 Blood Culture - Preliminary Blood 12/06/23 14:26 Blood Culture - Preliminary Blood
[2023-12-08 11:27] LABS: Glucose,Whole Blood 114 mg/dL (70-110)
--- NOTE | 2023-12-08 12:39 | P.PN ---
Subjective Progress Note Date: 12/08/23 This is a 63-year-old male patient with a known history of severe chronic obstructive pulmonary disease, chronic and ongoing tobacco dependence, daily alcohol use, marijuana use, coronary disease with previous stent placement, hypertension, hyperlipidemia, atrial fibrillation. He presented here to the em ergency room earlier this morning with complaints of shortness of breath. He states he had stopped drinking alcohol but did admit to having 1 beer this morning. Chest x-ray shows evidence of hyperinflation compatible with COPD but no acute pulmonary process. White count 13.6. Hemoglobin 12.9. Platelets 375. Sodium 120. Potassium 3.9. Bicarb 30. BUN 3. Creatinine 0.32. Glucose 99. AST 64. ALT 52. Serum alcohol level 94. He was having increased work of breathing. He is seen in the emergency department. He is on BiPAP 10/5 and 40% FiO2. He is currently on a Cardizem drip at 5 mg/h. He does have lower extremity edema 1-2+. Sinus tachycardia on monitor. Progress note dated December 07 2023. Patient is a 63-year-old male with a known history of COPD, chronic and ongoing tobacco dependence, daily alcohol use, marijuana use, CAD with previous stent placement, hypertension, hyperlipidemia and atrial fibrillation with RVR. He presented to the ED yesterday with complaints of shortness of breath. He was seen today in room 379 and he was on 3 L of oxygen. Uses BiPAP machine at night with IPAP of 10 cmH2O, EPAP of 5 cm H2O and FiO2 40%. Alcohol withdrawal tremors were noted. Cardizem drip at 5mg/hr. He is not on any fluids. Pro-Bennie level 0.06. Continue lorazepam, Solu-Medrol, DuoNeb, budesonide and formoterol.Patient educated about quitting alcohol and smoking for good. Nicotine 21mg/24hr patch order has been placed. Zithromax has been discontinued. CIWA protocol with thiamine. Labs show WBC 5.2, Hb 7.3, platelets 296, Na 124,K 4.2, Cl 89, BUN 6, Creatinine 0.31, glucose 121. Total protein 5.6 and albumin 3.2. Prognosis is guarded. Will continue to follow and make recommendations. The patient is seen today December 08, 2023 in follow-up on the selective care unit. He is currently sitting up in bed. Awake and alert. He has been having symptoms of withdrawal. He is tremorous at times. Confused at times. Family is at the bedside. He is on the CIWA protocol. He is currently maintaining O2 saturations in the 90s on 3 L/min per nasal cannula. Alternating with BiPAP 10/5 and 40% FiO2. Normal saline at 75 MLS per hour. Cultures are pending. White count 10.8. Hemoglobin 11.7. Platelets 341. Sodium 126. Potassium 3.5. Bicarb 32. BUN 6. Creatinine 0.30. Glucose 139. He is continued on DuoNeb inhalations, Pulmicort and Perforomist inhalations, IV Solu-Medrol. NicoDerm patch in place. Objective - Vital Signs Vital signs: Vital Signs Temp 98.1 F 12/08/23 08:00 Pulse 70 12/08/23 12:10 Resp 20 12/08/23 08:00 BP 126/76 12/08/23 08:00 Pulse Ox 98 12/08/23 08:00 FiO2 40 12/08/23 11:58 Intake & Output 12/07/23 12/08/23 12/08/23 18:59 06:59 18:59 Intake Total 822 30 240 Output Total 1250 1500 1000 Balance -589 -8663 -121 Weight 54.1 kg 53.9 kg Intake: IV 30 Invasive Line 2 30 Oral 822 240 Output: Urine 1250 1500 1000 Other: Voiding Method Urinal Urinal # Voids 1 - Exam GENERAL EXAM: Alert, confused at times, tremorous, disheveled 63-year-old male patient, on 3 L nasal cannula, in no apparent distress. HEAD: Normocephalic. EYES: Normal reaction of pupils, equal size. NOSE: Clear with pink turbinates. THROAT: No erythema or exudates. NECK: No masses, no JVD. CHEST: No chest wall deformity. LUNGS: Equal air entry with bilateral end expiratory wheeze, diminished CVS: S1 and S2 normal with no audible murmur, regular rhythm. ABDOMEN: No hepatosplenomegaly, normal bowel sounds, no guarding or rigidity. SPINE: No scoliosis or deformity SKIN: No rashes CENTRAL NERVOUS SYSTEM: No focal deficits, tone is normal in all 4 extremities. EXTREMITIES: There is no peripheral edema. No clubbing, no cyanosis. Peripheral pulses are intact. - Labs CBC & Chem 7: 12/08/23 07:17 12/08/23 07:17 Labs: Abnormal Lab Results - Last 24 Hours (Table) 12/07/23 12/07/23 12/07/23 Range/Units 14:51 16:34 20:06 WBC (3.8-10.6) k/uL RBC (4.30-5.90) m/uL Hgb (13.0-17.5) gm/dL Hct (39.0-53.0) % Neutrophils # (1.3-7.7) k/uL Lymphocytes # (1.0-4.8) k/uL Sodium 122 L (137-145) mmol/L Chloride (98-107) mmol/L Carbon Dioxide (22-30) mmol/L BUN (9-20) mg/dL Creatinine (0.66-1.25) mg/dL Glucose (74-99) mg/dL POC Glucose (mg/dL) 260 H 209 H (70-110) mg/dL 12/08/23 12/08/23 12/08/23 Range/Units 05:57 07:17 07:17 WBC 10.8 H (3.8-10.6) k/uL RBC 3.80 L (4.30-5.90) m/uL Hgb 11.7 L (13.0-17.5) gm/dL Hct 35.8 L (39.0-53.0) % Neutrophils # 10.2 H (1.3-7.7) k/uL Lymphocytes # 0.2 L (1.0-4.8) k/uL Sodium 126 L (137-145) mmol/L Chloride 93 L (98-107) mmol/L Carbon Dioxide 32 H (22-30) mmol/L BUN 6 L (9-20) mg/dL Creatinine 0.30 L (0.66-1.25) mg/dL Glucose 139 H (74-99) mg/dL POC Glucose (mg/dL) 152 H (70-110) mg/dL 12/08/23 Range/Units 11:25 WBC (3.8-10.6) k/uL RBC (4.30-5.90) m/uL Hgb (13.0-17.5) gm/dL Hct (39.0-53.0) % Neutrophils # (1.3-7.7) k/uL Lymphocytes # (1.0-4.8) k/uL Sodium (137-145) mmol/L Chloride (98-107) mmol/L Carbon Dioxide (22-30) mmol/L BUN (9-20) mg/dL Creatinine (0.66-1.25) mg/dL Glucose (74-99) mg/dL POC Glucose (mg/dL) 114 H (70-110) mg/dL Microbiology - Last 24 Hours (Table) 12/06/23 14:10 Blood Culture - Preliminary Blood 12/06/23 14:26 Blood Culture - Preliminary Blood Assessment and Plan Assessment: Acute on chronic hypoxemic respiratory failure secondary to an acute exacerbation of chronic obstructive pulmonary disease currently requiring BiPAP 10/5 and 40% FiO2 Oxygen dependent COPD, on 3 L nasal cannula when off BiPAP Obstructive sleep apnea utilizing CPAP Chronic and ongoing tobacco dependence Daily alcohol use, alcohol level 94 this morning Coronary artery disease with previous stent placements Peripheral vascular disease with femoral bypass History of atrial fibrillation Hypertension Hyperlipidemia Marijuana use Plan: The patient was seen and evaluated Labs and medications reviewed Continue the current treatment plan NicoDerm patch in place Continue CIWA protocol We will continue to follow I have personally seen and examined the patient, performed the documentation and the assessment and plan as written. Number of minutes spent on the visit: 10.
--- NOTE | 2023-12-08 13:34 | P.PN ---
Subjective patient is seen for follow-up for hyponatremia. History of significant EtOH abuse. Sodium is improving with normal saline. Sodium is 126 today. Maintained on BiPAP Objective - Vital Signs Vital signs: Vital Signs Temp 98.1 F 12/08/23 08:00 Pulse 70 12/08/23 12:10 Resp 20 12/08/23 12:00 BP 127/65 12/08/23 12:00 Pulse Ox 98 12/08/23 12:00 FiO2 40 12/08/23 11:58 Intake & Output 12/07/23 12/08/23 12/08/23 18:59 06:59 18:59 Intake Total 822 30 240 Output Total 1250 1500 1000 Balance -963 -8212 -376 Weight 54.1 kg 53.9 kg Intake: IV 30 Invasive Line 2 30 Oral 822 240 Output: Urine 1250 1500 1000 Other: Voiding Method Urinal Urinal # Voids 1 - Exam Patient is awake, comfortable, in no acute distress. 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 exam grossly intact, no asterixis noted - Labs CBC & Chem 7: 12/08/23 07:17 12/08/23 07:17 Labs: Abnormal Lab Results - Last 24 Hours (Table) 12/07/23 12/07/23 12/07/23 Range/Units 14:51 16:34 20:06 WBC (3.8-10.6) k/uL RBC (4.30-5.90) m/uL Hgb (13.0-17.5) gm/dL Hct (39.0-53.0) % Neutrophils # (1.3-7.7) k/uL Lymphocytes # (1.0-4.8) k/uL Sodium 122 L (137-145) mmol/L Chloride (98-107) mmol/L Carbon Dioxide (22-30) mmol/L BUN (9-20) mg/dL Creatinine (0.66-1.25) mg/dL Glucose (74-99) mg/dL POC Glucose (mg/dL) 260 H 209 H (70-110) mg/dL 12/08/23 12/08/23 12/08/23 Range/Units 05:57 07:17 07:17 WBC 10.8 H (3.8-10.6) k/uL RBC 3.80 L (4.30-5.90) m/uL Hgb 11.7 L (13.0-17.5) gm/dL Hct 35.8 L (39.0-53.0) % Neutrophils # 10.2 H (1.3-7.7) k/uL Lymphocytes # 0.2 L (1.0-4.8) k/uL Sodium 126 L (137-145) mmol/L Chloride 93 L (98-107) mmol/L Carbon Dioxide 32 H (22-30) mmol/L BUN 6 L (9-20) mg/dL Creatinine 0.30 L (0.66-1.25) mg/dL Glucose 139 H (74-99) mg/dL POC Glucose (mg/dL) 152 H (70-110) mg/dL 12/08/23 Range/Units 11:25 WBC (3.8-10.6) k/uL RBC (4.30-5.90) m/uL Hgb (13.0-17.5) gm/dL Hct (39.0-53.0) % Neutrophils # (1.3-7.7) k/uL Lymphocytes # (1.0-4.8) k/uL Sodium (137-145) mmol/L Chloride (98-107) mmol/L Carbon Dioxide (22-30) mmol/L BUN (9-20) mg/dL Creatinine (0.66-1.25) mg/dL Glucose (74-99) mg/dL POC Glucose (mg/dL) 114 H (70-110) mg/dL Microbiology - Last 24 Hours (Table) 12/06/23 14:10 Blood Culture - Preliminary Blood 12/06/23 14:26 Blood Culture - Preliminary Blood Assessment and Plan Assessment: 1. Hyponatremia secondary to significant alcohol intake and poor nutrition and decreased urinary solute. Improved post normal saline. 2. A. fib with RVR status post Cardizem drip with improvement in heart rate 3. History of EtOH abuse 4. COPD with acute exacerbation Plan: continue with normal saline Patient is encouraged to increase oral intake particularly protein. Repeat labs in a.m.
[2023-12-08 16:29] LABS: Glucose,Whole Blood 134 mg/dL (70-110)
[2023-12-08 20:21] LABS: Glucose,Whole Blood 226 mg/dL (70-110)
--- NOTE | 2023-12-08 22:20 | P.PN ---
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 Magaña. He was taking aspirin 81 mg as he states He is complaining from bilateral leg swelling. On admission patient was tachypneic and hypoxic and he was placed on BiPAP Blood pressure was 94/64 which is hypertensive for him, he was tachycardic with heart rate 156-165, he is known case of A-fib and EKG showing A-fib with RVR of a rate of 147, troponin is negative. He has mild leukocytosis 13.6, hemoglobin 12.9, sodium 120, liver enzymes mildly elevated Lactic acid 5.3 and 2.5 Chest x-ray is negative for acute process, showed COPD changes He is currently on CIWA, Cardizem drip and given normal saline boluses. Patient was admitted with pulmonary and cardiology consult 12/07/23 Patient breathing is improving and currently at home he is on 3 L/min of oxygen with good oxygen saturation.5 Nicotine patch added He still has tremor undergoing alcohol withdrawal, no delirium but he is on CIWA Heart rate is better controlled and blood pressure improved. Cardizem 30 mg 3 times daily added by avionics test technician Sodium 124 and 122, nephrology following closely. Normal saline 75 mL/h was discontinued today He remains on normal saline, IV Solu-Medrol, Zithromax and home dose of aspirin 81 mg 12/08/23 Patient overall is improving His dyspnea is better His vitals are all better Except for mild tachycardia but is still improving Ms. Stermer and alcohol withdrawal symptoms Appetite is improving Had normal bowel movement getting normal saline 75 mL/h, sodium improving slowly and gradually went 0.5 and 1.6 Mild leukocytosis and anemia stable Remains on IV Solu-Medrol and Zithromax Objective - Vital Signs Vital signs: Vital Signs Temp 98.1 F 12/08/23 08:00 Pulse 70 12/08/23 12:10 Resp 20 12/08/23 08:00 BP 126/76 12/08/23 08:00 Pulse Ox 98 12/08/23 08:00 FiO2 40 12/08/23 11:58 Intake & Output 12/07/23 12/08/23 12/08/23 18:59 06:59 18:59 Intake Total 822 30 240 Output Total 1250 1500 1000 Balance -180 -4525 -593 Weight 54.1 kg 53.9 kg Intake: IV 30 Invasive Line 2 30 Oral 822 240 Output: Urine 1250 1500 1000 Other: Voiding Method Urinal Urinal # Voids 1 - Exam -GENERAL: The patient is alert and oriented x3, not in any acute distress. Generally weak, thin built HEENT: Pupils are round and equally reacting to light. EOMI. No scleral icterus. No conjunctival pallor. Normocephalic, atraumatic. No pharyngeal erythema. No thyromegaly. CARDIOVASCULAR: S1 and S2 present. No murmurs, rubs, or gallops. -PULMONARY: Chest is clear to auscultation, no crackles. Tachypneic, bilateral expiratory wheezing ABDOMEN: Soft, nontender, nondistended, normoactive bowel sounds. No palpable organomegaly. MUSCULOSKELETAL: No joint swelling or deformity. EXTREMITIES: No cyanosis, clubbing, or pedal edema. NEUROLOGICAL: Gross neurological examination did not reveal any focal deficits. SKIN: No rashes. no petechiae. - Labs CBC & Chem 7: 12/08/23 07:17 12/08/23 16:51 Labs: Abnormal Lab Results - Last 24 Hours (Table) 12/07/23 12/07/23 12/07/23 Range/Units 14:51 16:34 20:06 WBC (3.8-10.6) k/uL RBC (4.30-5.90) m/uL Hgb (13.0-17.5) gm/dL Hct (39.0-53.0) % Neutrophils # (1.3-7.7) k/uL Lymphocytes # (1.0-4.8) k/uL Sodium 122 L (137-145) mmol/L Chloride (98-107) mmol/L Carbon Dioxide (22-30) mmol/L BUN (9-20) mg/dL Creatinine (0.66-1.25) mg/dL Glucose (74-99) mg/dL POC Glucose (mg/dL) 260 H 209 H (70-110) mg/dL 12/08/23 12/08/23 12/08/23 Range/Units 05:57 07:17 07:17 WBC 10.8 H (3.8-10.6) k/uL RBC 3.80 L (4.30-5.90) m/uL Hgb 11.7 L (13.0-17.5) gm/dL Hct 35.8 L (39.0-53.0) % Neutrophils # 10.2 H (1.3-7.7) k/uL Lymphocytes # 0.2 L (1.0-4.8) k/uL Sodium 126 L (137-145) mmol/L Chloride 93 L (98-107) mmol/L Carbon Dioxide 32 H (22-30) mmol/L BUN 6 L (9-20) mg/dL Creatinine 0.30 L (0.66-1.25) mg/dL Glucose 139 H (74-99) mg/dL POC Glucose (mg/dL) 152 H (70-110) mg/dL 12/08/23 Range/Units 11:25 WBC (3.8-10.6) k/uL RBC (4.30-5.90) m/uL Hgb (13.0-17.5) gm/dL Hct (39.0-53.0) % Neutrophils # (1.3-7.7) k/uL Lymphocytes # (1.0-4.8) k/uL Sodium (137-145) mmol/L Chloride (98-107) mmol/L Carbon Dioxide (22-30) mmol/L BUN (9-20) mg/dL Creatinine (0.66-1.25) mg/dL Glucose (74-99) mg/dL POC Glucose (mg/dL) 114 H (70-110) mg/dL Microbiology - Last 24 Hours (Table) 12/06/23 14:10 Blood Culture - Preliminary Blood 12/06/23 14:26 Blood Culture - Preliminary Blood Assessment and Plan Assessment: Acute COPD exacerbation Acute on chronic hypoxic respiratory failure Alcohol use disorder at risk of alcohol withdrawal A-fib and RVR Hypovolemic hyponatremia Hypotensive, present on admission Dehydration secondary to above Diarrhea x 2 days prior to hospitalization. Rule out C. difficile Elevated lactic acid, improvement Moderate calorie protein malnutrition Nicotine dependence Plan: Continue with IV steroids Discontinue IV hydration Monitor sodium level Continue with CIWA and thiamine Continue with the bronchodilators and inhaled steroids Continue with BiPAP as needed Pulmonary and nephrology consult Cardiology consult Labs and medication were reviewed.. Continue same treatment. Continue with symptomatic treatment. Resume home medication. Monitor labs and vitals. DVT and GI prophylaxis. Further recommendations as per clinical course of the patient DVT prophylaxis: Subcutaneous heparin GI Prophylaxis: Ppi Prognosis is guarded
[2023-12-09 06:11] LABS: Glucose,Whole Blood 134 mg/dL (70-110)
[2023-12-09 07:36] LABS: Basophils % (A) 0 %; Eosinophils % (A) 0 %; HCT 33.9 % (39.0-53.0); HGB 10.7 gm/dL (13.0-17.5); Lymphocytes # (A) 0.2 k/uL (1.0-4.8); Lymphocytes % (A) 2 %; MCH 30.4 pg (25.0-35.0); MCHC 31.8 g/dL (31.0-37.0); MCV 95.8 fL (80.0-100.0); Mean Platelet Volume 7.2; Monocytes # (A) 0.3 k/uL (0-1.0); Monocytes % (A) 3 %; Neutrophils # (A) 9.1 k/uL (1.3-7.7); Neutrophils % (A) 95 %; Platelet Count 282 k/uL (150-450); RBC 3.53 m/uL (4.30-5.90); RDW 15.1 % (11.5-15.5); WBC 9.5 k/uL (3.8-10.6)
[2023-12-09 07:58] LABS: Glucose,Whole Blood 205 mg/dL (70-110)
[2023-12-09 08:01] LABS: African American GFR (CKD) >90 (>60 ml/min/1.73 sqM); Anion Gap 2 mmol/L; Blood Urea Nitrogen 7 mg/dL (9-20); Calcium 8.3 mg/dL (8.4-10.2); Carbon Dioxide 31 mmol/L (22-30); Chloride 94 mmol/L (98-107); Glucose 120 mg/dL (74-99); Non-African American GFR(CKD) >90 (>60 ml/min/1.73 sqM); Potassium 2.9 mmol/L (3.5-5.1); Sodium 127 mmol/L (137-145)
[2023-12-09 11:25] LABS: Glucose,Whole Blood 229 mg/dL (70-110)
--- NOTE | 2023-12-09 13:57 | P.PN ---
Subjective Progress Note Date: 12/09/23 This is a 63-year-old male patient with a known history of severe chronic obstructive pulmonary disease, chronic and ongoing tobacco dependence, daily alcohol use, marijuana use, coronary disease with previous stent placement, hypertension, hyperlipidemia, atrial fibrillation. He presented here to the em ergency room earlier this morning with complaints of shortness of breath. He states he had stopped drinking alcohol but did admit to having 1 beer this morning. Chest x-ray shows evidence of hyperinflation compatible with COPD but no acute pulmonary process. White count 13.6. Hemoglobin 12.9. Platelets 375. Sodium 120. Potassium 3.9. Bicarb 30. BUN 3. Creatinine 0.32. Glucose 99. AST 64. ALT 52. Serum alcohol level 94. He was having increased work of breathing. He is seen in the emergency department. He is on BiPAP 10/5 and 40% FiO2. He is currently on a Cardizem drip at 5 mg/h. He does have lower extremity edema 1-2+. Sinus tachycardia on monitor. Progress note dated December 07 2023. Patient is a 63-year-old male with a known history of COPD, chronic and ongoing tobacco dependence, daily alcohol use, marijuana use, CAD with previous stent placement, hypertension, hyperlipidemia and atrial fibrillation with RVR. He presented to the ED yesterday with complaints of shortness of breath. He was seen today in room 379 and he was on 3 L of oxygen. Uses BiPAP machine at night with IPAP of 10 cmH2O, EPAP of 5 cm H2O and FiO2 40%. Alcohol withdrawal tremors were noted. Cardizem drip at 5mg/hr. He is not on any fluids. Pro-Bennie level 0.06. Continue lorazepam, Solu-Medrol, DuoNeb, budesonide and formoterol.Patient educated about quitting alcohol and smoking for good. Nicotine 21mg/24hr patch order has been placed. Zithromax has been discontinued. CIWA protocol with thiamine. Labs show WBC 5.2, Hb 7.3, platelets 296, Na 124,K 4.2, Cl 89, BUN 6, Creatinine 0.31, glucose 121. Total protein 5.6 and albumin 3.2. Prognosis is guarded. Will continue to follow and make recommendations. The patient is seen today December 08, 2023 in follow-up on the selective care unit. He is currently sitting up in bed. Awake and alert. He has been having symptoms of withdrawal. He is tremorous at times. Confused at times. Family is at the bedside. He is on the CIWA protocol. He is currently maintaining O2 saturations in the 90s on 3 L/min per nasal cannula. Alternating with BiPAP 10/5 and 40% FiO2. Normal saline at 75 MLS per hour. Cultures are pending. White count 10.8. Hemoglobin 11.7. Platelets 341. Sodium 126. Potassium 3.5. Bicarb 32. BUN 6. Creatinine 0.30. Glucose 139. He is continued on DuoNeb inhalations, Pulmicort and Perforomist inhalations, IV Solu-Medrol. NicoDerm patch in place. The patient is seen today December 09, 2023 in follow-up on the selective care unit. He is currently resting in bed. Awake and alert in no acute distress. He is maintaining O2 saturations in the 90s on 3 L/min per nasal cannula. He is currently off the BiPAP which is set at 10/5 and 40% FiO2. He has normal saline at 75 MLS per hour. He remains on DuoNeb inhalations, Pulmicort and Perforomist inhalations, Solu-Medrol. NicoDerm patch in place. He remains on the CIWA protocol. Heparin for DVT prophylaxis. Blood cultures revealed no growth. W minesh count 9.5. Hemoglobin 10.7. Platelets 289. Sodium 127. Potassium 2.9. Bicarb 31. BUN 7. Creatinine 0.29. Glucose 120. Objective - Vital Signs Vital signs: Vital Signs Temp 98 F 12/09/23 11:05 Pulse 84 12/09/23 12:20 Resp 16 12/09/23 11:05 BP 124/71 12/09/23 11:05 Pulse Ox 98 12/09/23 11:05 FiO2 40 12/09/23 04:31 Intake & Output 12/08/23 12/09/23 12/09/23 18:59 06:59 18:59 Intake Total 350 476 Output Total 1650 550 750 Balance -1300 -653 -303 Weight 46.5 kg Intake: Oral 350 476 Output: Urine 1650 550 750 Other: Voiding Method Urinal External Catheter External Catheter - Exam GENERAL EXAM: Alert, tremorous, disheveled 63-year-old male, on 3 L nasal cannula, in no apparent distress. HEAD: Normocephalic. EYES: Normal reaction of pupils, equal size. NOSE: Clear with pink turbinates. THROAT: No erythema or exudates. NECK: No masses, no JVD. CHEST: No chest wall deformity. LUNGS: Equal air entry with bilateral end expiratory wheeze, diminished CVS: S1 and S2 normal with no audible murmur, regular rhythm. ABDOMEN: No hepatosplenomegaly, normal bowel sounds, no guarding or rigidity. SPINE: No scoliosis or deformity SKIN: No rashes CENTRAL NERVOUS SYSTEM: No focal deficits, tone is normal in all 4 extremities. EXTREMITIES: There is no peripheral edema. No clubbing, no cyanosis. Peripheral pulses are intact. - Labs CBC & Chem 7: 12/09/23 06:32 12/09/23 06:32 Labs: Abnormal Lab Results - Last 24 Hours (Table) 12/08/23 12/08/23 12/08/23 Range/Units 16:28 16:51 20:19 RBC (4.30-5.90) m/uL Hgb (13.0-17.5) gm/dL Hct (39.0-53.0) % Neutrophils # (1.3-7.7) k/uL Lymphocytes # (1.0-4.8) k/uL Sodium 125 L (137-145) mmol/L Potassium (3.5-5.1) mmol/L Chloride (98-107) mmol/L Carbon Dioxide (22-30) mmol/L BUN (9-20) mg/dL Creatinine (0.66-1.25) mg/dL Glucose (74-99) mg/dL POC Glucose (mg/dL) 134 H 226 H (70-110) mg/dL Calcium (8.4-10.2) mg/dL 12/09/23 12/09/23 12/09/23 Range/Units 06:09 06:32 06:32 RBC 3.53 L (4.30-5.90) m/uL Hgb 10.7 L (13.0-17.5) gm/dL Hct 33.9 L (39.0-53.0) % Neutrophils # 9.1 H (1.3-7.7) k/uL Lymphocytes # 0.2 L (1.0-4.8) k/uL Sodium 127 L (137-145) mmol/L Potassium 2.9 L (3.5-5.1) mmol/L Chloride 94 L (98-107) mmol/L Carbon Dioxide 31 H (22-30) mmol/L BUN 7 L (9-20) mg/dL Creatinine 0.29 L (0.66-1.25) mg/dL Glucose 120 H (74-99) mg/dL POC Glucose (mg/dL) 134 H (70-110) mg/dL Calcium 8.3 L (8.4-10.2) mg/dL 12/09/23 12/09/23 Range/Units 07:56 11:22 RBC (4.30-5.90) m/uL Hgb (13.0-17.5) gm/dL Hct (39.0-53.0) % Neutrophils # (1.3-7.7) k/uL Lymphocytes # (1.0-4.8) k/uL Sodium (137-145) mmol/L Potassium (3.5-5.1) mmol/L Chloride (98-107) mmol/L Carbon Dioxide (22-30) mmol/L BUN (9-20) mg/dL Creatinine (0.66-1.25) mg/dL Glucose (74-99) mg/dL POC Glucose (mg/dL) 205 H 229 H (70-110) mg/dL Calcium (8.4-10.2) mg/dL Microbiology - Last 24 Hours (Table) 12/06/23 14:10 Blood Culture - Preliminary Blood 12/06/23 14:26 Blood Culture - Preliminary Blood Assessment and Plan Assessment: Acute on chronic hypoxemic respiratory failure secondary to an acute exacerbation of chronic obstructive pulmonary disease currently on 3 L nasal cannula and at times requiring BiPAP 10/5 and 40% FiO2 Oxygen dependent COPD, on 3 L nasal cannula when off BiPAP Obstructive sleep apnea utilizing CPAP Chronic and ongoing tobacco dependence Daily alcohol use, alcohol level 94 this morning Coronary artery disease with previous stent placements Peripheral vascular disease with femoral bypass History of atrial fibrillation Hypertension Hyperlipidemia Marijuana use Plan: The patient was seen and evaluated Labs and medications reviewed Stable on 3 L nasal cannula Still somewhat bronchospastic and wheezing Continue the current treatment plan We will continue to follow I have personally seen and examined the patient, performed the documentation and the assessment and plan as written. Number of minutes spent on the visit: 10.
--- NOTE | 2023-12-09 14:15 | P.PN ---
Subjective patient is seen for follow-up for hyponatremia. History of significant EtOH abuse. Sodium is improving with normal saline. Sodium is 127 today. Being treated for COPD exacerbation. complaining of nausea today. Objective - Vital Signs Vital signs: Vital Signs Temp 98 F 12/09/23 11:05 Pulse 84 12/09/23 12:20 Resp 16 12/09/23 11:05 BP 124/71 12/09/23 11:05 Pulse Ox 98 12/09/23 11:05 FiO2 40 12/09/23 04:31 Intake & Output 12/08/23 12/09/23 12/09/23 18:59 06:59 18:59 Intake Total 350 476 Output Total 1650 550 750 Balance -2750 -550 -774 Weight 46.5 kg Intake: Oral 350 476 Output: Urine 1650 550 750 Other: Voiding Method Urinal External Catheter External Catheter - Exam Patient is awake, comfortable, in no acute distress. 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 grossly intact, no asterixis noted - Labs CBC & Chem 7: 12/09/23 06:32 12/09/23 06:32 Labs: Abnormal Lab Results - Last 24 Hours (Table) 12/08/23 12/08/23 12/08/23 Range/Units 16:28 16:51 20:19 RBC (4.30-5.90) m/uL Hgb (13.0-17.5) gm/dL Hct (39.0-53.0) % Neutrophils # (1.3-7.7) k/uL Lymphocytes # (1.0-4.8) k/uL Sodium 125 L (137-145) mmol/L Potassium (3.5-5.1) mmol/L Chloride (98-107) mmol/L Carbon Dioxide (22-30) mmol/L BUN (9-20) mg/dL Creatinine (0.66-1.25) mg/dL Glucose (74-99) mg/dL POC Glucose (mg/dL) 134 H 226 H (70-110) mg/dL Calcium (8.4-10.2) mg/dL 12/09/23 12/09/23 12/09/23 Range/Units 06:09 06:32 06:32 RBC 3.53 L (4.30-5.90) m/uL Hgb 10.7 L (13.0-17.5) gm/dL Hct 33.9 L (39.0-53.0) % Neutrophils # 9.1 H (1.3-7.7) k/uL Lymphocytes # 0.2 L (1.0-4.8) k/uL Sodium 127 L (137-145) mmol/L Potassium 2.9 L (3.5-5.1) mmol/L Chloride 94 L (98-107) mmol/L Carbon Dioxide 31 H (22-30) mmol/L BUN 7 L (9-20) mg/dL Creatinine 0.29 L (0.66-1.25) mg/dL Glucose 120 H (74-99) mg/dL POC Glucose (mg/dL) 134 H (70-110) mg/dL Calcium 8.3 L (8.4-10.2) mg/dL 12/09/23 12/09/23 Range/Units 07:56 11:22 RBC (4.30-5.90) m/uL Hgb (13.0-17.5) gm/dL Hct (39.0-53.0) % Neutrophils # (1.3-7.7) k/uL Lymphocytes # (1.0-4.8) k/uL Sodium (137-145) mmol/L Potassium (3.5-5.1) mmol/L Chloride (98-107) mmol/L Carbon Dioxide (22-30) mmol/L BUN (9-20) mg/dL Creatinine (0.66-1.25) mg/dL Glucose (74-99) mg/dL POC Glucose (mg/dL) 205 H 229 H (70-110) mg/dL Calcium (8.4-10.2) mg/dL Microbiology - Last 24 Hours (Table) 12/06/23 14:10 Blood Culture - Preliminary Blood 12/06/23 14:26 Blood Culture - Preliminary Blood Assessment and Plan Assessment: 1. Hyponatremia secondary to significant alcohol intake and poor nutrition and decreased urinary solute. Improved post normal saline. 2. A. fib with RVR status post Cardizem drip with improvement in heart rate 3. History of EtOH abuse 4. COPD with acute exacerbation Plan: continue with normal saline Sodium chloride tab 1 Check urine osmolality Patient is encouraged to increase oral intake particularly protein. Repeat labs in a.m.
[2023-12-09 16:50] LABS: Glucose,Whole Blood 192 mg/dL (70-110)
[2023-12-09] MEDS: SODIUM CHLORIDE TAB 1 GM TAB PO SCH (17:32)
[2023-12-09] MEDS ORDERED: Potassium Replacement Protocol 1 EACH MISC MISCELLANE PRN (17:45)
[2023-12-09] MEDS: POTASSIUM CHLORIDE ER 20 MEQ TAB.ER PO SCH (18:09)
[2023-12-09 20:02] LABS: Glucose,Whole Blood 250 mg/dL (70-110)
[2023-12-10 05:50] LABS: Glucose,Whole Blood 178 mg/dL (70-110)
[2023-12-10 07:32] LABS: Basophils % (A) 0 %; Eosinophils % (A) 0 %; HCT 34.3 % (39.0-53.0); HGB 10.8 gm/dL (13.0-17.5); Hypochromasia Slight; Lymphocytes # (A) 0.2 k/uL (1.0-4.8); Lymphocytes % (A) 2 %; MCH 30.7 pg (25.0-35.0); MCHC 31.5 g/dL (31.0-37.0); MCV 97.5 fL (80.0-100.0); Mean Platelet Volume 7.8; Monocytes # (A) 0.6 k/uL (0-1.0); Monocytes % (A) 5 %; Neutrophils # (A) 11.3 k/uL (1.3-7.7); Neutrophils % (A) 93 %; Platelet Count 245 k/uL (150-450); RBC 3.52 m/uL (4.30-5.90); RDW 15.6 % (11.5-15.5); WBC 12.2 k/uL (3.8-10.6)
[2023-12-10 08:40] LABS: African American GFR (CKD) >90 (>60 ml/min/1.73 sqM); Anion Gap 0 mmol/L; Blood Urea Nitrogen 12 mg/dL (9-20); Calcium 8.3 mg/dL (8.4-10.2); Carbon Dioxide 39 mmol/L (22-30); Chloride 90 mmol/L (98-107); Glucose 137 mg/dL (74-99); Non-African American GFR(CKD) >90 (>60 ml/min/1.73 sqM); Potassium 3.4 mmol/L (3.5-5.1); Sodium 129 mmol/L (137-145)
[2023-12-10] MEDS: HYDROcodone/APAP 5-325MG 1 EACH TAB PO PRN (08:45)
[2023-12-10] MEDS: POTASSIUM CHLORIDE ER 20 MEQ TAB.ER PO STA (09:15)
[2023-12-10 11:34] LABS: Glucose,Whole Blood 193 mg/dL (70-110)
[2023-12-10] MEDS ORDERED: DEXTROSE 50% SYRINGE 50 ML IVP PRN ×2 (11:35)
[2023-12-10] MEDS: INSULIN ASPART (NovoLOG) 100 UNIT/ML VIAL SQ SCH (11:45)
--- NOTE | 2023-12-10 13:23 | P.PN ---
Subjective patient is seen for follow-up for hyponatremia. History of significant EtOH abuse. Sodium is improving with normal saline. Sodium is 129 today. Being treated for COPD exacerbation. no significant complaints today. Objective - Vital Signs Vital signs: Vital Signs Temp 99 F 12/10/23 08:00 Pulse 92 12/10/23 12:29 Resp 18 12/10/23 11:39 BP 134/75 12/10/23 11:39 Pulse Ox 98 12/10/23 11:39 FiO2 40 12/10/23 04:02 Intake & Output 12/09/23 12/10/23 12/10/23 18:59 06:59 18:59 Intake Total 476 358 Output Total 1000 1250 500 Balance -524 -3018 -142 Weight 44 kg Intake: Oral 476 358 Output: Urine 1000 1250 500 Other: Voiding Method External Catheter External Catheter External Catheter # Voids 1 - Exam Patient is awake, comfortable, in no acute distress. Examination of the heart S1 and S2 Examination of the lungs bilateral breath sounds are heard next nontender Examination of lower extremities shows trace edema bilaterally RECYCLER exam grossly intact, no asterixis noted - Labs CBC & Chem 7: 12/10/23 07:00 12/10/23 07:00 Labs: Abnormal Lab Results - Last 24 Hours (Table) 12/09/23 12/09/23 12/10/23 Range/Units 16:44 20:01 05:48 WBC (3.8-10.6) k/uL RBC (4.30-5.90) m/uL Hgb (13.0-17.5) gm/dL Hct (39.0-53.0) % RDW (11.5-15.5) % Neutrophils # (1.3-7.7) k/uL Lymphocytes # (1.0-4.8) k/uL Sodium (137-145) mmol/L Potassium (3.5-5.1) mmol/L Chloride (98-107) mmol/L Carbon Dioxide (22-30) mmol/L Creatinine (0.66-1.25) mg/dL Glucose (74-99) mg/dL POC Glucose (mg/dL) 192 H 250 H 178 H (70-110) mg/dL Calcium (8.4-10.2) mg/dL 12/10/23 12/10/23 12/10/23 Range/Units 07:00 07:00 11:31 WBC 12.2 H (3.8-10.6) k/uL RBC 3.52 L (4.30-5.90) m/uL Hgb 10.8 L (13.0-17.5) gm/dL Hct 34.3 L (39.0-53.0) % RDW 15.6 H (11.5-15.5) % Neutrophils # 11.3 H (1.3-7.7) k/uL Lymphocytes # 0.2 L (1.0-4.8) k/uL Sodium 129 L (137-145) mmol/L Potassium 3.4 L (3.5-5.1) mmol/L Chloride 90 L (98-107) mmol/L Carbon Dioxide 39 H (22-30) mmol/L Creatinine 0.35 L (0.66-1.25) mg/dL Glucose 137 H (74-99) mg/dL POC Glucose (mg/dL) 193 H (70-110) mg/dL Calcium 8.3 L (8.4-10.2) mg/dL Microbiology - Last 24 Hours (Table) 12/06/23 14:10 Blood Culture - Preliminary Blood 12/06/23 14:26 Blood Culture - Preliminary Blood Assessment and Plan Assessment: 1. Hyponatremia secondary to significant alcohol intake and poor nutrition and decreased urinary solute. Improved post normal saline. 2. A. fib with RVR status post Cardizem drip with improvement in heart rate 3. History of EtOH abuse 4. COPD with acute exacerbation Plan: continue with normal saline DC sodium chloride tab Patient is encouraged to increase oral intake particularly protein. Repeat labs in a.m.
--- NOTE | 2023-12-10 13:50 | P.PN ---
Subjective Progress Note Date: 12/09/23 The patient is a pleasant 63-year-old gentleman who is known to our service from before with a past medical history significant for CAD with prior stenting of the RCA and LAD and known intermediate disease involving the left circumflex as well as hypertension and dyslipidemia and smoking and COPD and excessive alcohol use and history of gastrointestinal bleeding and chronic hypoxic respiratory failure. The patient presented to the hospital complaining of increasing shortness of breath associated with heart racing and fluttering but no dizziness or lightheadedness and no presyncope or syncope and no symptoms of chest pain or chest discomfort. Unfortunately he continues to smoke and unfortunately continues to drink with the last time he was drinking alcohol earlier this morning. He was found to be in A-fib with RVR and subsequently was started on Cardizem IV and converted to normal sinus mechanism. He is feeling somewhat better. No symptoms of any chest pain or chest discomfort. He underwent an EKG which showed atrial fibrillation with RVR with diffuse nonspecific ST and T wave abnormalities. He is on beta-radha. The echocardiogram from recent admission showed preserved LV systolic function and with that being said I am going to stop the beta-radha and start the patient on Cardizem orally giving the severe COPD. Beside that he cannot take any oral anticoagulation giving the history of gastrointestinal bleeding before. He need to be evaluated for left atrial appendage closure as an outpatient. The examination is remarkable for distant heart sounds with regular rhythm and diminished breathing sounds bilaterally and no edema was noted in the lower extremities December 08, 2023 The patient was seen and evaluated this morning. He is going through alcohol withdrawal. He has been maintaining normal sinus mechanism. He is on Cardizem orally at this point. He is not on any oral anticoagulation because of history of severe gastrointestinal bleeding before. He definitely need to be evaluated as an outpatient for left atrial appendage closure. The examination is rem arkable for severe diminished breathing sounds bilaterally and regular rate and rhythm with distant heart sounds and no edema was noted in the lower extremities December 09, 2023 And is seen and examined at bedside this a.m. He is on oral Cardizem and is not on any anticoagulation because of prior history of GI bleeding. Patient is currently in sinus rhythm on telemetry with heart rate averaging ar ound 80 bpm. Assessment Chronic hypoxic respiratory failure COPD Excessive alcohol use A-fib with RVR which is paroxysmal, currently in sinus rhythm CAD as described above Multiple comorbid conditions Plan Continue Cardizem 30 mg 3 times daily Patient is not on anticoagulation because of prior history of severe GI bleeding. Consider outpatient Watchman device Objective - Vital Signs Vital signs: Vital Signs Temp 99 F 12/10/23 08:00 Pulse 92 12/10/23 12:29 Resp 18 12/10/23 11:39 BP 134/75 12/10/23 11:39 Pulse Ox 98 12/10/23 11:39 FiO2 40 12/10/23 04:02 Intake & Output 12/09/23 12/10/23 12/10/23 18:59 06:59 18:59 Intake Total 476 358 Output Total 1000 1250 500 Balance -524 -6280 -142 Weight 44 kg Intake: Oral 476 358 Output: Urine 1000 1250 500 Other: Voiding Method External Catheter External Catheter External Catheter # Voids 1 - Labs CBC & Chem 7: 12/10/23 07:00 12/10/23 07:00 Labs: Abnormal Lab Results - Last 24 Hours (Table) 12/09/23 12/09/23 12/10/23 Range/Units 16:44 20:01 05:48 WBC (3.8-10.6) k/uL RBC (4.30-5.90) m/uL Hgb (13.0-17.5) gm/dL Hct (39.0-53.0) % RDW (11.5-15.5) % Neutrophils # (1.3-7.7) k/uL Lymphocytes # (1.0-4.8) k/uL Sodium (137-145) mmol/L Potassium (3.5-5.1) mmol/L Chloride (98-107) mmol/L Carbon Dioxide (22-30) mmol/L Creatinine (0.66-1.25) mg/dL Glucose (74-99) mg/dL POC Glucose (mg/dL) 192 H 250 H 178 H (70-110) mg/dL Calcium (8.4-10.2) mg/dL 12/10/23 12/10/23 12/10/23 Range/Units 07:00 07:00 11:31 WBC 12.2 H (3.8-10.6) k/uL RBC 3.52 L (4.30-5.90) m/uL Hgb 10.8 L (13.0-17.5) gm/dL Hct 34.3 L (39.0-53.0) % RDW 15.6 H (11.5-15.5) % Neutrophils # 11.3 H (1.3-7.7) k/uL Lymphocytes # 0.2 L (1.0-4.8) k/uL Sodium 129 L (137-145) mmol/L Potassium 3.4 L (3.5-5.1) mmol/L Chloride 90 L (98-107) mmol/L Carbon Dioxide 39 H (22-30) mmol/L Creatinine 0.35 L (0.66-1.25) mg/dL Glucose 137 H (74-99) mg/dL POC Glucose (mg/dL) 193 H (70-110) mg/dL Calcium 8.3 L (8.4-10.2) mg/dL Microbiology - Last 24 Hours (Table) 12/06/23 14:10 Blood Culture - Preliminary Blood 12/06/23 14:26 Blood Culture - Preliminary Blood
--- NOTE | 2023-12-10 13:51 | P.PN ---
Subjective Progress Note Date: 12/10/23 The patient is a pleasant 63-year-old gentleman who is known to our service from before with a past medical history significant for CAD with prior stenting of the RCA and LAD and known intermediate disease involving the left circumflex as well as hypertension and dyslipidemia and smoking and COPD and excessive alcohol use and history of gastrointestinal bleeding and chronic hypoxic respiratory failure. The patient presented to the hospital complaining of increasing shortness of breath associated with heart racing and fluttering but no dizziness or lightheadedness and no presyncope or syncope and no symptoms of chest pain or chest discomfort. Unfortunately he continues to smoke and unfortunately continues to drink with the last time he was drinking alcohol earlier this morning. He was found to be in A-fib with RVR and subsequently was started on Cardizem IV and converted to normal sinus mechanism. He is feeling somewhat better. No symptoms of any chest pain or chest discomfort. He underwent an EKG which showed atrial fibrillation with RVR with diffuse nonspecific ST and T wave abnormalities. He is on beta-radha. The echocardiogram from recent admission showed preserved LV systolic function and with that being said I am going to stop the beta-radha and start the patient on Cardizem orally giving the severe COPD. Beside that he cannot take any oral anticoagulation giving the history of gastrointestinal bleeding before. He need to be evaluated for left atrial appendage closure as an outpatient. The examination is remarkable for distant heart sounds with regular rhythm and diminished breathing sounds bilaterally and no edema was noted in the lower extremities December 08, 2023 The patient was seen and evaluated this morning. He is going through alcohol withdrawal. He has been maintaining normal sinus mechanism. He is on Cardizem orally at this point. He is not on any oral anticoagulation because of history of severe gastrointestinal bleeding before. He definitely need to be evaluated as an outpatient for left atrial appendage closure. The examination is rem arkable for severe diminished breathing sounds bilaterally and regular rate and rhythm with distant heart sounds and no edema was noted in the lower extremities December 09, 2023 And is seen and examined at bedside this a.m. He is on oral Cardizem and is not on any anticoagulation because of prior history of GI bleeding. Patient is currently in sinus rhythm on telemetry with heart rate averaging ar ound 80 bpm. December 10, 2023 Patient is seen and examined at bedside this a.m. Patient is continuing to be in sinus rhythm. He is tolerating current cardiac medications well. Assessment Chronic hypoxic respiratory failure COPD Excessive alcohol use A-fib with RVR which is paroxysmal, currently in sinus rhythm CAD as described above Multiple comorbid conditions Plan Discontinue Cardizem short acting and start Cardizem CD120 mg daily Patient is not on anticoagulation because of prior history of severe GI bleeding. Consider outpatient Watchman device Patient is cleared from cardiovascular standpoint. At this time point cardiology team will sign off. Please reconsult us in case of any question. Objective - Vital Signs Vital signs: Vital Signs Temp 99 F 12/10/23 08:00 Pulse 92 12/10/23 12:29 Resp 18 12/10/23 11:39 BP 134/75 12/10/23 11:39 Pulse Ox 98 12/10/23 11:39 FiO2 40 12/10/23 04:02 Intake & Output 12/09/23 12/10/23 12/10/23 18:59 06:59 18:59 Intake Total 476 358 Output Total 1000 1250 500 Balance -524 -1250 -142 Weight 44 kg Intake: Oral 476 358 Output: Urine 1000 1250 500 Other: Voiding Method External Catheter External Catheter External Catheter # Voids 1 - Labs CBC & Chem 7: 12/10/23 07:00 12/10/23 07:00 Labs: Abnormal Lab Results - Last 24 Hours (Table) 12/09/23 12/09/23 12/10/23 Range/Units 16:44 20:01 05:48 WBC (3.8-10.6) k/uL RBC (4.30-5.90) m/uL Hgb (13.0-17.5) gm/dL Hct (39.0-53.0) % RDW (11.5-15.5) % Neutrophils # (1.3-7.7) k/uL Lymphocytes # (1.0-4.8) k/uL Sodium (137-145) mmol/L Potassium (3.5-5.1) mmol/L Chloride (98-107) mmol/L Carbon Dioxide (22-30) mmol/L Creatinine (0.66-1.25) mg/dL Glucose (74-99) mg/dL POC Glucose (mg/dL) 192 H 250 H 178 H (70-110) mg/dL Calcium (8.4-10.2) mg/dL 12/10/23 12/10/23 12/10/23 Range/Units 07:00 07:00 11:31 WBC 12.2 H (3.8-10.6) k/uL RBC 3.52 L (4.30-5.90) m/uL Hgb 10.8 L (13.0-17.5) gm/dL Hct 34.3 L (39.0-53.0) % RDW 15.6 H (11.5-15.5) % Neutrophils # 11.3 H (1.3-7.7) k/uL Lymphocytes # 0.2 L (1.0-4.8) k/uL Sodium 129 L (137-145) mmol/L Potassium 3.4 L (3.5-5.1) mmol/L Chloride 90 L (98-107) mmol/L Carbon Dioxide 39 H (22-30) mmol/L Creatinine 0.35 L (0.66-1.25) mg/dL Glucose 137 H (74-99) mg/dL POC Glucose (mg/dL) 193 H (70-110) mg/dL Calcium 8.3 L (8.4-10.2) mg/dL Microbiology - Last 24 Hours (Table) 12/06/23 14:10 Blood Culture - Preliminary Blood 12/06/23 14:26 Blood Culture - Preliminary Blood
--- NOTE | 2023-12-10 13:55 | P.PN ---
Subjective Progress Note Date: 12/10/23 This is a 63-year-old male patient with a known history of severe chronic obstructive pulmonary disease, chronic and ongoing tobacco dependence, daily alcohol use, marijuana use, coronary disease with previous stent placement, hypertension, hyperlipidemia, atrial fibrillation. He presented here to the em ergency room earlier this morning with complaints of shortness of breath. He states he had stopped drinking alcohol but did admit to having 1 beer this morning. Chest x-ray shows evidence of hyperinflation compatible with COPD but no acute pulmonary process. White count 13.6. Hemoglobin 12.9. Platelets 375. Sodium 120. Potassium 3.9. Bicarb 30. BUN 3. Creatinine 0.32. Glucose 99. AST 64. ALT 52. Serum alcohol level 94. He was having increased work of breathing. He is seen in the emergency department. He is on BiPAP 10/5 and 40% FiO2. He is currently on a Cardizem drip at 5 mg/h. He does have lower extremity edema 1-2+. Sinus tachycardia on monitor. Progress note dated December 07 2023. Patient is a 63-year-old male with a known history of COPD, chronic and ongoing tobacco dependence, daily alcohol use, marijuana use, CAD with previous stent placement, hypertension, hyperlipidemia and atrial fibrillation with RVR. He presented to the ED yesterday with complaints of shortness of breath. He was seen today in room 379 and he was on 3 L of oxygen. Uses BiPAP machine at night with IPAP of 10 cmH2O, EPAP of 5 cm H2O and FiO2 40%. Alcohol withdrawal tremors were noted. Cardizem drip at 5mg/hr. He is not on any fluids. Pro-Bennie level 0.06. Continue lorazepam, Solu-Medrol, DuoNeb, budesonide and formoterol.Patient educated about quitting alcohol and smoking for good. Nicotine 21mg/24hr patch order has been placed. Zithromax has been discontinued. CIWA protocol with thiamine. Labs show WBC 5.2, Hb 7.3, platelets 296, Na 124,K 4.2, Cl 89, BUN 6, Creatinine 0.31, glucose 121. Total protein 5.6 and albumin 3.2. Prognosis is guarded. Will continue to follow and make recommendations. The patient is seen today December 08, 2023 in follow-up on the selective care unit. He is currently sitting up in bed. Awake and alert. He has been having symptoms of withdrawal. He is tremorous at times. Confused at times. Family is at the bedside. He is on the CIWA protocol. He is currently maintaining O2 saturations in the 90s on 3 L/min per nasal cannula. Alternating with BiPAP 10/5 and 40% FiO2. Normal saline at 75 MLS per hour. Cultures are pending. White count 10.8. Hemoglobin 11.7. Platelets 341. Sodium 126. Potassium 3.5. Bicarb 32. BUN 6. Creatinine 0.30. Glucose 139. He is continued on DuoNeb inhalations, Pulmicort and Perforomist inhalations, IV Solu-Medrol. NicoDerm patch in place. The patient is seen today December 09, 2023 in follow-up on the selective care unit. He is currently resting in bed. Awake and alert in no acute distress. He is maintaining O2 saturations in the 90s on 3 L/min per nasal cannula. He is currently off the BiPAP which is set at 10/5 and 40% FiO2. He has normal saline at 75 MLS per hour. He remains on DuoNeb inhalations, Pulmicort and Perforomist inhalations, Solu-Medrol. NicoDerm patch in place. He remains on the CIWA protocol. Heparin for DVT prophylaxis. Blood cultures revealed no growth. W minesh count 9.5. Hemoglobin 10.7. Platelets 289. Sodium 127. Potassium 2.9. Bicarb 31. BUN 7. Creatinine 0.29. Glucose 120. The patient is seen today December 10, 2023 in follow-up on the selective care unit. He is currently sitting up in a chair at the bedside. Awake and alert in no acute distress. Maintaining O2 saturations in the 90s on 3 L/min per nasal cannula. Utilizing BiPAP at night 10/5 and 40% FiO2. He is still wheezing but sounding better today compared to yesterday. White count 12.2. Hemoglobin 10.8. Platelets 245. Sodium 129. Potassium 3.4. Bicarb 39. BUN 12. Crea tinine 0.35. Glucose 137. He is continued on DuoNeb inhalations, Pulmicort and Perforomist inhalations, Solu-Medrol. NicoDerm patch in place. Remains on the CIWA protocol. Objective - Vital Signs Vital signs: Vital Signs Temp 99 F 12/10/23 08:00 Pulse 92 12/10/23 12:29 Resp 18 12/10/23 11:39 BP 134/75 12/10/23 11:39 Pulse Ox 98 12/10/23 11:39 FiO2 40 12/10/23 04:02 Intake & Output 12/09/23 12/10/23 12/10/23 18:59 06:59 18:59 Intake Total 476 358 Output Total 1000 1250 500 Balance -524 -1250 -142 Weight 44 kg Intake: Oral 476 358 Output: Urine 1000 1250 500 Other: Voiding Method External Catheter External Catheter External Catheter # Voids 1 - Exam GENERAL EXAM: Alert, tremorous, 63-year-old male, up in a chair, on 3 L nasal cannula, in no apparent distress. HEAD: Normocephalic. EYES: Normal reaction of pupils, equal size. NOSE: Clear with pink turbinates. THROAT: No erythema or exudates. NECK: No masses, no JVD. CHEST: No chest wall deformity. LUNGS: Equal air entry with bilateral end expiratory wheeze, diminished CVS: S1 and S2 normal with no audible murmur, regular rhythm. ABDOMEN: No hepatosplenomegaly, normal bowel sounds, no guarding or rigidity. SPINE: No scoliosis or deformity SKIN: No rashes CENTRAL NERVOUS SYSTEM: No focal deficits, tone is normal in all 4 extremities. EXTREMITIES: There is no peripheral edema. No clubbing, no cyanosis. Peripheral pulses are intact. - Labs CBC & Chem 7: 12/10/23 07:00 12/10/23 07:00 Labs: Abnormal Lab Results - Last 24 Hours (Table) 12/09/23 12/09/23 12/10/23 Range/Units 16:44 20:01 05:48 WBC (3.8-10.6) k/uL RBC (4.30-5.90) m/uL Hgb (13.0-17.5) gm/dL Hct (39.0-53.0) % RDW (11.5-15.5) % Neutrophils # (1.3-7.7) k/uL Lymphocytes # (1.0-4.8) k/uL Sodium (137-145) mmol/L Potassium (3.5-5.1) mmol/L Chloride (98-107) mmol/L Carbon Dioxide (22-30) mmol/L Creatinine (0.66-1.25) mg/dL Glucose (74-99) mg/dL POC Glucose (mg/dL) 192 H 250 H 178 H (70-110) mg/dL Calcium (8.4-10.2) mg/dL 12/10/23 12/10/23 12/10/23 Range/Units 07:00 07:00 11:31 WBC 12.2 H (3.8-10.6) k/uL RBC 3.52 L (4.30-5.90) m/uL Hgb 10.8 L (13.0-17.5) gm/dL Hct 34.3 L (39.0-53.0) % RDW 15.6 H (11.5-15.5) % Neutrophils # 11.3 H (1.3-7.7) k/uL Lymphocytes # 0.2 L (1.0-4.8) k/uL Sodium 129 L (137-145) mmol/L Potassium 3.4 L (3.5-5.1) mmol/L Chloride 90 L (98-107) mmol/L Carbon Dioxide 39 H (22-30) mmol/L Creatinine 0.35 L (0.66-1.25) mg/dL Glucose 137 H (74-99) mg/dL POC Glucose (mg/dL) 193 H (70-110) mg/dL Calcium 8.3 L (8.4-10.2) mg/dL Microbiology - Last 24 Hours (Table) 12/06/23 14:10 Blood Culture - Preliminary Blood 12/06/23 14:26 Blood Culture - Preliminary Blood Assessment and Plan Assessment: Acute on chronic hypoxemic respiratory failure secondary to an acute exacerbation of chronic obstructive pulmonary disease currently on 3 L nasal cannula and at times requiring BiPAP 10/5 and 40% FiO2 Oxygen dependent COPD, on 3 L nasal cannula when off BiPAP Obstructive sleep apnea utilizing home CPAP Chronic and ongoing tobacco dependence Daily alcohol use, alcohol level 94 this morning Coronary artery disease with previous stent placements Peripheral vascular disease with femoral bypass History of atrial fibrillation Hypertension Hyperlipidemia Marijuana use Plan: The patient was seen and evaluated Labs and medications reviewed Stable on 3 L nasal cannula Continue the current treatment plan Increase his activity as tolerated May require subacute rehabilitation at discharge I have personally seen and examined the patient, performed the documentation and the assessment and plan as written. Number of minutes spent on the visit: 10.
[2023-12-10] MEDS: DILTIAZEM CD 120 MG CAP.ER.24H PO SCH (15:28)
[2023-12-10 16:33] LABS: Glucose,Whole Blood 231 mg/dL (70-110)
[2023-12-10 20:25] LABS: Glucose,Whole Blood 184 mg/dL (70-110)
[2023-12-10 22:56] LABS: Glucose,Whole Blood 151 mg/dL (70-110)
[2023-12-11 06:13] LABS: Glucose,Whole Blood 128 mg/dL (70-110)
[2023-12-11 06:50] LABS: Basophils # (A) 0.1 k/uL (0-0.2); Basophils % (A) 0 %; Eosinophils # (A) 0.3 k/uL (0-0.7); Eosinophils % (A) 2 %; HCT 33.1 % (39.0-53.0); HGB 10.7 gm/dL (13.0-17.5); Hypochromasia Slight; Lymphocytes # (A) 0.1 k/uL (1.0-4.8); Lymphocytes % (A) 1 %; MCHC 32.2 g/dL (31.0-37.0); MCV 96.2 fL (80.0-100.0); Mean Platelet Volume 7.4; Monocytes # (A) 0.7 k/uL (0-1.0); Monocytes % (A) 4 %; Neutrophils # (A) 14.5 k/uL (1.3-7.7); Neutrophils % (A) 92 %; Platelet Count 234 k/uL (150-450); RBC 3.44 m/uL (4.30-5.90); RDW 15.2 % (11.5-15.5); WBC 15.7 k/uL (3.8-10.6)
[2023-12-11 07:06] LABS: African American GFR (CKD) >90 (>60 ml/min/1.73 sqM); Anion Gap 1 mmol/L; Blood Urea Nitrogen 13 mg/dL (9-20); Calcium 8.5 mg/dL (8.4-10.2); Carbon Dioxide 36 mmol/L (22-30); Chloride 86 mmol/L (98-107); Glucose 120 mg/dL (74-99); Non-African American GFR(CKD) >90 (>60 ml/min/1.73 sqM); Sodium 123 mmol/L (137-145)
[2023-12-11] MEDS: POTASSIUM CHLORIDE ER 20 MEQ TAB.ER PO STA (08:50)
[2023-12-11] MEDS: FUROSEMIDE 10 MG/ML 4 ML VIAL IV STA (11:13)
[2023-12-11 11:39] LABS: Glucose,Whole Blood 194 mg/dL (70-110)
--- NOTE | 2023-12-11 12:41 | P.PN ---
Subjective patient is seen for follow-up for hyponatremia. History of significant EtOH abuse. Being treated for COPD exacerbation. no significant complaints today. sodium has dropped to 123 after restarting saline yesterday. Objective - Vital Signs Vital signs: Vital Signs Temp 98.3 F 12/11/23 08:00 Pulse 74 12/11/23 11:55 Resp 16 12/11/23 11:55 BP 120/70 12/11/23 11:55 Pulse Ox 97 12/11/23 11:55 FiO2 40 12/11/23 00:31 Intake & Output 12/10/23 12/11/23 12/11/23 18:59 06:59 18:59 Intake Total 594 720 Output Total 1300 1550 2500 Balance -451 -1079 -5861 Weight 44 kg 60.5 kg Intake: Oral 594 720 Output: Urine 1300 1550 2500 Other: Voiding Method External Catheter External Catheter External Catheter # Voids 1 # Bowel Movements 1 1 - Exam Patient is awake, comfortable, in no acute distress. Examination of the heart S1 and S2 Examination of the lungs bilateral breath sounds are heard next nontender Examination of lower extremities shows trace edema bilaterally [employer] exam grossly intact, no asterixis noted - Labs CBC & Chem 7: 12/11/23 06:25 12/11/23 06:25 Labs: Abnormal Lab Results - Last 24 Hours (Table) 12/10/23 12/10/23 12/10/23 Range/Units 16:31 20:24 22:54 WBC (3.8-10.6) k/uL RBC (4.30-5.90) m/uL Hgb (13.0-17.5) gm/dL Hct (39.0-53.0) % Neutrophils # (1.3-7.7) k/uL Lymphocytes # (1.0-4.8) k/uL Sodium (137-145) mmol/L Potassium (3.5-5.1) mmol/L Chloride (98-107) mmol/L Carbon Dioxide (22-30) mmol/L Creatinine (0.66-1.25) mg/dL Glucose (74-99) mg/dL POC Glucose (mg/dL) 231 H 184 H 151 H (70-110) mg/dL 12/11/23 12/11/23 12/11/23 Range/Units 06:11 06:25 06:25 WBC 15.7 H (3.8-10.6) k/uL RBC 3.44 L (4.30-5.90) m/uL Hgb 10.7 L (13.0-17.5) gm/dL Hct 33.1 L (39.0-53.0) % Neutrophils # 14.5 H (1.3-7.7) k/uL Lymphocytes # 0.1 L (1.0-4.8) k/uL Sodium 123 L (137-145) mmol/L Potassium 3.0 L (3.5-5.1) mmol/L Chloride 86 L (98-107) mmol/L Carbon Dioxide 36 H (22-30) mmol/L Creatinine 0.33 L (0.66-1.25) mg/dL Glucose 120 H (74-99) mg/dL POC Glucose (mg/dL) 128 H (70-110) mg/dL 12/11/23 Range/Units 11:37 WBC (3.8-10.6) k/uL RBC (4.30-5.90) m/uL Hgb (13.0-17.5) gm/dL Hct (39.0-53.0) % Neutrophils # (1.3-7.7) k/uL Lymphocytes # (1.0-4.8) k/uL Sodium (137-145) mmol/L Potassium (3.5-5.1) mmol/L Chloride (98-107) mmol/L Carbon Dioxide (22-30) mmol/L Creatinine (0.66-1.25) mg/dL Glucose (74-99) mg/dL POC Glucose (mg/dL) 194 H (70-110) mg/dL Assessment and Plan Assessment: 1. Hyponatremia secondary to significant alcohol intake and poor nutrition and decreased urinary solute. Improved post normal saline, initially. Serum sodium worsened today after saline was restarted. 2. A. fib with RVR status post Cardizem drip with improvement in heart rate 3. History of EtOH abuse 4. COPD with acute exacerbation Plan: discontinue saline and sodium chloride tabs Lasix 20 mg IV 1 Repeat sodium later this afternoon. Patient is encouraged to increase oral intake particularly protein. Repeat labs in a.m.
--- NOTE | 2023-12-11 15:07 | XR ---
EXAMINATION TYPE: XR chest 1V portable DATE OF EXAM: 12/11/2023 COMPARISON: 12/06/2023 HISTORY: Shortness of breath TECHNIQUE: Frontal and lateral views of the chest are obtained. FINDINGS: Scattered senescent parenchymal changes noted. Hyperinflation compatible with COPD. No evidence for infiltrate. No evidence for atelectasis. Heart size is stable. Mediastinal structures are stable and grossly unremarkable. No evidence for hilar prominence. Degenerative changes dorsal spine. IMPRESSION: 1. No evidence for acute pulmonary disease.
[2023-12-11 16:50] LABS: Glucose,Whole Blood 176 mg/dL (70-110)
--- NOTE | 2023-12-11 16:57 | P.PN ---
Subjective Progress Note Date: 12/11/23 This is a 63-year-old male patient with a known history of severe chronic obstructive pulmonary disease, chronic and ongoing tobacco dependence, daily alcohol use, marijuana use, coronary disease with previous stent placement, hypertension, hyperlipidemia, atrial fibrillation. He presented here to the em ergency room earlier this morning with complaints of shortness of breath. He states he had stopped drinking alcohol but did admit to having 1 beer this morning. Chest x-ray shows evidence of hyperinflation compatible with COPD but no acute pulmonary process. White count 13.6. Hemoglobin 12.9. Platelets 375. Sodium 120. Potassium 3.9. Bicarb 30. BUN 3. Creatinine 0.32. Glucose 99. AST 64. ALT 52. Serum alcohol level 94. He was having increased work of breathing. He is seen in the emergency department. He is on BiPAP 10/5 and 40% FiO2. He is currently on a Cardizem drip at 5 mg/h. He does have lower extremity edema 1-2+. Sinus tachycardia on monitor. Progress note dated December 07 2023. Patient is a 63-year-old male with a known history of COPD, chronic and ongoing tobacco dependence, daily alcohol use, marijuana use, CAD with previous stent placement, hypertension, hyperlipidemia and atrial fibrillation with RVR. He presented to the ED yesterday with complaints of shortness of breath. He was seen today in room 379 and he was on 3 L of oxygen. Uses BiPAP machine at night with IPAP of 10 cmH2O, EPAP of 5 cm H2O and FiO2 40%. Alcohol withdrawal tremors were noted. Cardizem drip at 5mg/hr. He is not on any fluids. Pro-Bennie level 0.06. Continue lorazepam, Solu-Medrol, DuoNeb, budesonide and formoterol.Patient educated about quitting alcohol and smoking for good. Nicotine 21mg/24hr patch order has been placed. Zithromax has been discontinued. CIWA protocol with thiamine. Labs show WBC 5.2, Hb 7.3, platelets 296, Na 124,K 4.2, Cl 89, BUN 6, Creatinine 0.31, glucose 121. Total protein 5.6 and albumin 3.2. Prognosis is guarded. Will continue to follow and make recommendations. The patient is seen today December 08, 2023 in follow-up on the selective care unit. He is currently sitting up in bed. Awake and alert. He has been having symptoms of withdrawal. He is tremorous at times. Confused at times. Family is at the bedside. He is on the CIWA protocol. He is currently maintaining O2 saturations in the 90s on 3 L/min per nasal cannula. Alternating with BiPAP 10/5 and 40% FiO2. Normal saline at 75 MLS per hour. Cultures are pending. White count 10.8. Hemoglobin 11.7. Platelets 341. Sodium 126. Potassium 3.5. Bicarb 32. BUN 6. Creatinine 0.30. Glucose 139. He is continued on DuoNeb inhalations, Pulmicort and Perforomist inhalations, IV Solu-Medrol. NicoDerm patch in place. The patient is seen today December 09, 2023 in follow-up on the selective care unit. He is currently resting in bed. Awake and alert in no acute distress. He is maintaining O2 saturations in the 90s on 3 L/min per nasal cannula. He is currently off the BiPAP which is set at 10/5 and 40% FiO2. He has normal saline at 75 MLS per hour. He remains on DuoNeb inhalations, Pulmicort and Perforomist inhalations, Solu-Medrol. NicoDerm patch in place. He remains on the CIWA protocol. Heparin for DVT prophylaxis. Blood cultures revealed no growth. W minesh count 9.5. Hemoglobin 10.7. Platelets 289. Sodium 127. Potassium 2.9. Bicarb 31. BUN 7. Creatinine 0.29. Glucose 120. The patient is seen today December 10, 2023 in follow-up on the selective care unit. He is currently sitting up in a chair at the bedside. Awake and alert in no acute distress. Maintaining O2 saturations in the 90s on 3 L/min per nasal cannula. Utilizing BiPAP at night 10/5 and 40% FiO2. He is still wheezing but sounding better today compared to yesterday. White count 12.2. Hemoglobin 10.8. Platelets 245. Sodium 129. Potassium 3.4. Bicarb 39. BUN 12. Crea tinine 0.35. Glucose 137. He is continued on DuoNeb inhalations, Pulmicort and Perforomist inhalations, Solu-Medrol. NicoDerm patch in place. Remains on the CIWA protocol. The patient is seen today December 11, 2023 in follow-up on the selective care unit. He is awake and alert in no acute distress. Sitting up in a chair. Maintaining good O2 saturations in the 90s 3 L/min per nasal cannula. He is afebrile. Hemodynamically stable. He is continued on DuoNeb inhalations, Pulmicort and Perforomist inhalations, Solu-Medrol. NicoDerm patch in place. Remains on the CIWA protocol. Chest x-ray shows no acute pulmonary process. White count 15.7. Hemoglobin 10.7. Platelets 234. Sodium 124. Potassium 3.0. Bicarb 36. BUN 13. Creatinine 0.33. Glucose 120. Objective - Vital Signs Vital signs: Vital Signs Temp 97.8 F 12/11/23 15:58 Pulse 82 12/11/23 15:58 Resp 16 12/11/23 15:58 BP 131/69 12/11/23 15:58 Pulse Ox 97 12/11/23 15:58 FiO2 40 12/11/23 00:31 Intake & Output 12/10/23 12/11/23 12/11/23 18:59 06:59 18:59 Intake Total 594 1200 Output Total 1300 1550 3900 Balance -744 -2730 -3760 Weight 44 kg 60.5 kg Intake: Oral 594 1200 Output: Urine 1300 1550 3900 Other: Voiding Method External Catheter External Catheter External Catheter # Voids 1 # Bowel Movements 1 1 - Exam GENERAL EXAM: Alert, 63-year-old male, up in a chair, on 3 L nasal cannula, in no apparent distress. HEAD: Normocephalic. EYES: Normal reaction of pupils, equal size. NOSE: Clear with pink turbinates. THROAT: No erythema or exudates. NECK: No masses, no JVD. CHEST: No chest wall deformity. LUNGS: Equal air entry with bilateral end expiratory wheeze, diminished CVS: S1 and S2 normal with no audible murmur, regular rhythm. ABDOMEN: No hepatosplenomegaly, normal bowel sounds, no guarding or rigidity. SPINE: No scoliosis or deformity SKIN: No rashes CENTRAL NERVOUS SYSTEM: No focal deficits, tone is normal in all 4 extremities. EXTREMITIES: There is no peripheral edema. No clubbing, no cyanosis. Peripheral pulses are intact. - Labs CBC & Chem 7: 12/11/23 06:25 12/11/23 15:05 Labs: Abnormal Lab Results - Last 24 Hours (Table) 12/10/23 12/10/23 12/11/23 Range/Units 20:24 22:54 06:11 WBC (3.8-10.6) k/uL RBC (4.30-5.90) m/uL Hgb (13.0-17.5) gm/dL Hct (39.0-53.0) % Neutrophils # (1.3-7.7) k/uL Lymphocytes # (1.0-4.8) k/uL Sodium (137-145) mmol/L Potassium (3.5-5.1) mmol/L Chloride (98-107) mmol/L Carbon Dioxide (22-30) mmol/L Creatinine (0.66-1.25) mg/dL Glucose (74-99) mg/dL POC Glucose (mg/dL) 184 H 151 H 128 H (70-110) mg/dL 12/11/23 12/11/23 12/11/23 Range/Units 06:25 06:25 11:37 WBC 15.7 H (3.8-10.6) k/uL RBC 3.44 L (4.30-5.90) m/uL Hgb 10.7 L (13.0-17.5) gm/dL Hct 33.1 L (39.0-53.0) % Neutrophils # 14.5 H (1.3-7.7) k/uL Lymphocytes # 0.1 L (1.0-4.8) k/uL Sodium 123 L (137-145) mmol/L Potassium 3.0 L (3.5-5.1) mmol/L Chloride 86 L (98-107) mmol/L Carbon Dioxide 36 H (22-30) mmol/L Creatinine 0.33 L (0.66-1.25) mg/dL Glucose 120 H (74-99) mg/dL POC Glucose (mg/dL) 194 H (70-110) mg/dL 12/11/23 12/11/23 Range/Units 15:05 16:46 WBC (3.8-10.6) k/uL RBC (4.30-5.90) m/uL Hgb (13.0-17.5) gm/dL Hct (39.0-53.0) % Neutrophils # (1.3-7.7) k/uL Lymphocytes # (1.0-4.8) k/uL Sodium 124 L (137-145) mmol/L Potassium (3.5-5.1) mmol/L Chloride (98-107) mmol/L Carbon Dioxide (22-30) mmol/L Creatinine (0.66-1.25) mg/dL Glucose (74-99) mg/dL POC Glucose (mg/dL) 176 H (70-110) mg/dL Assessment and Plan Assessment: Acute on chronic hypoxemic respiratory failure secondary to an acute exacerbation of chronic obstructive pulmonary disease currently on 3 L nasal cannula and at times requiring BiPAP 10/5 and 40% FiO2 Oxygen dependent COPD, on 3 L nasal cannula when off BiPAP Obstructive sleep apnea utilizing home CPAP Chronic and ongoing tobacco dependence Daily alcohol use, alcohol level 94 this morning Coronary artery disease with previous stent placements Peripheral vascular disease with femoral bypass History of atrial fibrillation Hypertension Hyperlipidemia Marijuana use Plan: The patient was seen and evaluated Chest x-ray, labs and medications reviewed Stable on 3 L nasal cannula Continue the current treatment plan Increase his activity as tolerated We will continue to follow I have personally seen and examined the patient, performed the documentation and the assessment and plan as written. Number of minutes spent on the visit: 10.
[2023-12-11 20:10] LABS: Glucose,Whole Blood 483 mg/dL (70-110)
--- NOTE | 2023-12-11 23:27 | P.PN ---
Subjective Progress Note Date: 12/09/23 This is a pleasant 63 years old male with past medical history of A-fib, coronary artery disease, COPD, DVT, GERD, hyperlipidemia, osteoarthritis, hypertension, sleep apnea Presents because of worsening shortness of breath and alcohol withdrawal symptoms Patient also complaining from cough with little phlegm Chest pain with coughing Also has been complaining from diarrhea over the last 2 days stated about 10 times per day, patient looks dehydrated He has history of coronary artery disease s/p 3 stents, his radiosonde specialist Dr. Magaña. He was taking aspirin 81 mg as he states He is complaining from bilateral leg swelling. On admission patient was tachypneic and hypoxic and he was placed on BiPAP Blood pressure was 94/64 which is hypertensive for him, he was tachycardic with heart rate 156-165, he is known case of A-fib and EKG showing A-fib with RVR of a rate of 147, troponin is negative. He has mild leukocytosis 13.6, hemoglobin 12.9, sodium 120, liver enzymes mildly elevated Lactic acid 5.3 and 2.5 Chest x-ray is negative for acute process, showed COPD changes He is currently on CIWA, Cardizem drip and given normal saline boluses. Patient was admitted with pulmonary and cardiology consult 12/07/23 Patient breathing is improving and currently at home he is on 3 L/min of oxygen with good oxygen saturation.5 Nicotine patch added He still has tremor undergoing alcohol withdrawal, no delirium but he is on CIWA Heart rate is better controlled and blood pressure improved. Cardizem 30 mg 3 times daily added by radiosonde specialist Sodium 124 and 122, nephrology following closely. Normal saline 75 mL/h was discontinued today He remains on normal saline, IV Solu-Medrol, Zithromax and home dose of aspirin 81 mg 12/08/23 Patient overall is improving His dyspnea is better His vitals are all better Except for mild tachycardia but is still improving Ms. Meeks and alcohol withdrawal symptoms Appetite is improving Had normal bowel movement getting normal saline 75 mL/h, sodium improving slowly and gradually went 0.5 and 1.6 Mild leukocytosis and anemia stable Remains on IV Solu-Medrol and Zithromax 12/09/2023 Patient is currently sitting in the bed. Awake alert and oriented. Seems to be weak and lethargic. Currently requiring 3 L oxygen via nasal cannula. Patient is off BiPAP. Still having shortness of breath and exertional dyspnea. Currently on IV hydration with normal saline at 75 cc/h. Otherwise patient is being continued on DuoNebs, IV Solu-Medrol, Pulmicort and Perforomist. Patient is also on CIWA protocol. Blood cultures showed no growth. Laboratory data showed WBC 9.1 hemoglobin 10.7 and platelets 282, sodium 127 potassium 2.9 chloride 94 bicarb is 31 BUN 7 and creatinine 0.29 and blood sugar is 120. Calcium 8.3. Pulmonary and nephrology is on board. Current medications reviewed. Objective - Vital Signs Vital signs: Vital Signs Temp 97.6 F 12/09/23 08:20 Pulse 92 12/09/23 08:54 Resp 16 12/09/23 08:20 BP 135/79 12/09/23 08:20 Pulse Ox 97 12/09/23 08:30 FiO2 40 12/09/23 04:31 Intake & Output 12/08/23 12/09/23 12/09/23 18:59 06:59 18:59 Intake Total 350 118 Output Total 1650 550 750 Balance -1300 550 -402 Weight 46.5 kg Intake: Oral 350 118 Output: Urine 1650 550 750 Other: Voiding Method Urinal External Catheter External Catheter - Exam - Exam -GENERAL: The patient is alert and oriented x3, not in any acute distress. Generally weak, thin built HEENT: Pupils are round and equally reacting to light. EOMI. No scleral icterus. No conjunctival pallor. Normocephalic, atraumatic. No pharyngeal erythema. No thyromegaly. CARDIOVASCULAR: S1 and S2 present. No murmurs, rubs, or gallops. -PULMONARY: Bibasilar coarse sounds.. Tachypneic, bilateral expiratory wheezing ABDOMEN: Soft, nontender, nondistended, normoactive bowel sounds. No palpable organomegaly. MUSCULOSKELETAL: No joint swelling or deformity. EXTREMITIES: No cyanosis, clubbing, or pedal edema. NEUROLOGICAL: Gross neurological examination did not reveal any focal deficits. SKIN: No rashes. no petechiae. - Labs CBC & Chem 7: 12/11/23 06:25 12/11/23 21:34 Labs: Abnormal Lab Results - Last 24 Hours (Table) 12/08/23 12/08/23 12/08/23 Range/Units 16:28 16:51 20:19 RBC (4.30-5.90) m/uL Hgb (13.0-17.5) gm/dL Hct (39.0-53.0) % Neutrophils # (1.3-7.7) k/uL Lymphocytes # (1.0-4.8) k/uL Sodium 125 L (137-145) mmol/L Potassium (3.5-5.1) mmol/L Chloride (98-107) mmol/L Carbon Dioxide (22-30) mmol/L BUN (9-20) mg/dL Creatinine (0.66-1.25) mg/dL Glucose (74-99) mg/dL POC Glucose (mg/dL) 134 H 226 H (70-110) mg/dL Calcium (8.4-10.2) mg/dL 12/09/23 12/09/23 12/09/23 Range/Units 06:09 06:32 06:32 RBC 3.53 L (4.30-5.90) m/uL Hgb 10.7 L (13.0-17.5) gm/dL Hct 33.9 L (39.0-53.0) % Neutrophils # 9.1 H (1.3-7.7) k/uL Lymphocytes # 0.2 L (1.0-4.8) k/uL Sodium 127 L (137-145) mmol/L Potassium 2.9 L (3.5-5.1) mmol/L Chloride 94 L (98-107) mmol/L Carbon Dioxide 31 H (22-30) mmol/L BUN 7 L (9-20) mg/dL Creatinine 0.29 L (0.66-1.25) mg/dL Glucose 120 H (74-99) mg/dL POC Glucose (mg/dL) 134 H (70-110) mg/dL Calcium 8.3 L (8.4-10.2) mg/dL 12/09/23 12/09/23 Range/Units 07:56 11:22 RBC (4.30-5.90) m/uL Hgb (13.0-17.5) gm/dL Hct (39.0-53.0) % Neutrophils # (1.3-7.7) k/uL Lymphocytes # (1.0-4.8) k/uL Sodium (137-145) mmol/L Potassium (3.5-5.1) mmol/L Chloride (98-107) mmol/L Carbon Dioxide (22-30) mmol/L BUN (9-20) mg/dL Creatinine (0.66-1.25) mg/dL Glucose (74-99) mg/dL POC Glucose (mg/dL) 205 H 229 H (70-110) mg/dL Calcium (8.4-10.2) mg/dL Microbiology - Last 24 Hours (Table) 12/06/23 14:10 Blood Culture - Preliminary Blood 12/06/23 14:26 Blood Culture - Preliminary Blood Assessment and Plan Assessment: Acute COPD exacerbation Acute on chronic hypoxic respiratory failure secondary to COPD exacerbation. Patient was requiring BiPAP. Currently transition to nasal cannula oxygen. Chronic hypoxic respiratory failure on home oxygen 3 L via nasal cannula. Obstructive sleep apnea Alcohol use disorder at risk of alcohol withdrawal A-fib and RVR Coronary arteries with history of stent placement Hypovolemic hyponatremia Hypotensive, present on admission Dehydration secondary to above Diarrhea x 2 days prior to hospitalization. Ruled out C. difficile Elevated lactic acid, improvement Moderate calorie protein malnutrition Nicotine dependence Marijuana use disorder Plan: Continue with IV steroids Continue with IV hydration with normal saline and reduce rate. Monitor sodium level Continue with CIWA and thiamine Continue with the bronchodilators and inhaled steroids Continue with BiPAP as needed Pulmonary and nephrology is on board. Cardiology consult Labs and medication were reviewed.. Monitor labs and vitals. DVT and GI prophylaxis. DVT prophylaxis: Subcutaneous heparin GI Prophylaxis: Ppi Prognosis is guarded Time with Patient: Greater than 30
--- NOTE | 2023-12-11 23:31 | P.PN ---
Subjective Progress Note Date: 12/10/23 This is a pleasant 63 years old male with past medical history of A-fib, coronary artery disease, COPD, DVT, GERD, hyperlipidemia, osteoarthritis, hypertension, sleep apnea Presents because of worsening shortness of breath and alcohol withdrawal symptoms Patient also complaining from cough with little phlegm Chest pain with coughing Also has been complaining from diarrhea over the last 2 days stated about 10 times per day, patient looks dehydrated He has history of coronary artery disease s/p 3 stents, his order entry Dr. Magaña. He was taking aspirin 81 mg as he states He is complaining from bilateral leg swelling. On admission patient was tachypneic and hypoxic and he was placed on BiPAP Blood pressure was 94/64 which is hypertensive for him, he was tachycardic with heart rate 156-165, he is known case of A-fib and EKG showing A-fib with RVR of a rate of 147, troponin is negative. He has mild leukocytosis 13.6, hemoglobin 12.9, sodium 120, liver enzymes mildly elevated Lactic acid 5.3 and 2.5 Chest x-ray is negative for acute process, showed COPD changes He is currently on CIWA, Cardizem drip and given normal saline boluses. Patient was admitted with pulmonary and cardiology consult 12/07/23 Patient breathing is improving and currently at home he is on 3 L/min of oxygen with good oxygen saturation.5 Nicotine patch added He still has tremor undergoing alcohol withdrawal, no delirium but he is on CIWA Heart rate is better controlled and blood pressure improved. Cardizem 30 mg 3 times daily added by order entry Sodium 124 and 122, nephrology following closely. Normal saline 75 mL/h was discontinued today He remains on normal saline, IV Solu-Medrol, Zithromax and home dose of aspirin 81 mg 12/08/23 Patient overall is improving His dyspnea is better His vitals are all better Except for mild tachycardia but is still improving Ms. Meeks and alcohol withdrawal symptoms Appetite is improving Had normal bowel movement getting normal saline 75 mL/h, sodium improving slowly and gradually went 0.5 and 1.6 Mild leukocytosis and anemia stable Remains on IV Solu-Medrol and Zithromax 12/09/2023 Patient is currently sitting in the bed. Awake alert and oriented. Seems to be weak and lethargic. Currently requiring 3 L oxygen via nasal cannula. Patient is off BiPAP. Still having shortness of breath and exertional dyspnea. Currently on IV hydration with normal saline at 75 cc/h. Otherwise patient is being continued on DuoNebs, IV Solu-Medrol, Pulmicort and Perforomist. Patient is also on CIWA protocol. Blood cultures showed no growth. Laboratory data showed WBC 9.1 hemoglobin 10.7 and platelets 282, sodium 127 potassium 2.9 chloride 94 bicarb is 31 BUN 7 and creatinine 0.29 and blood sugar is 120. Calcium 8.3. Pulmonary and nephrology is on board. 12/10/2023 Patient is more awake and oriented today. Able to sit in the chair. Tolerating oral diet. On oxygen via nasal cannula at 3 L baseline. Patient did utilize BiPAP overnight. Still having bilateral expiratory wheezing. Breath sounds slightly improved compared to yesterday. Patient has been afebrile. Laboratory data showed WBC 12.2 hemoglobin 10.8 and platelets 245 sodium 129 potassium 3.4 chloride 90 bicarb is 39 BUN 12 and creatinine 0.35 blood sugar 137 and calcium 8.3. Patient is being continued on IV Solu-Medrol, DuoNebs, Pulmicort and Perforomist. Short-acting Cardizem changed to Cardizem CD. Patient is not on anticoagulation due to prior history of GI bleed. Patient completed antibiotic course for 3 days. Current medications reviewed. Objective - Vital Signs Vital signs: Vital Signs Temp 97.6 F 12/10/23 19:15 Pulse 75 12/10/23 19:15 Resp 17 12/10/23 19:15 BP 159/86 12/10/23 19:15 Pulse Ox 100 12/10/23 19:15 FiO2 40 12/10/23 19:15 Intake & Output 12/10/23 12/10/23 12/11/23 06:59 18:59 06:59 Intake Total 594 Output Total 1250 1300 Balance -1250 -706 Weight 44 kg 44 kg Intake: Oral 594 Output: Urine 1250 1300 Other: Voiding Method External Catheter External Catheter External Catheter - Exam - Exam -GENERAL: The patient is alert and oriented x3, not in any acute distress. Generally weak, thin built HEENT: Pupils are round and equally reacting to light. EOMI. No scleral icterus. No conjunctival pallor. Normocephalic, atraumatic. No pharyngeal erythema. No thyromegaly. CARDIOVASCULAR: S1 and S2 present. No murmurs, rubs, or gallops. -PULMONARY: Bibasilar coarse breath sounds and mild expiratory wheezing. Nonlabored breathing. ABDOMEN: Soft, nontender, nondistended, normoactive bowel sounds. No palpable organomegaly. MUSCULOSKELETAL: No joint swelling or deformity. EXTREMITIES: No cyanosis, clubbing, or pedal edema. NEUROLOGICAL: Gross neurological examination did not reveal any focal deficits. SKIN: No rashes. no petechiae. - Labs CBC & Chem 7: 12/11/23 06:25 12/11/23 21:34 Labs: Abnormal Lab Results - Last 24 Hours (Table) 12/10/23 12/10/23 12/10/23 Range/Units 05:48 07:00 07:00 WBC 12.2 H (3.8-10.6) k/uL RBC 3.52 L (4.30-5.90) m/uL Hgb 10.8 L (13.0-17.5) gm/dL Hct 34.3 L (39.0-53.0) % RDW 15.6 H (11.5-15.5) % Neutrophils # 11.3 H (1.3-7.7) k/uL Lymphocytes # 0.2 L (1.0-4.8) k/uL Sodium 129 L (137-145) mmol/L Potassium 3.4 L (3.5-5.1) mmol/L Chloride 90 L (98-107) mmol/L Carbon Dioxide 39 H (22-30) mmol/L Creatinine 0.35 L (0.66-1.25) mg/dL Glucose 137 H (74-99) mg/dL POC Glucose (mg/dL) 178 H (70-110) mg/dL Calcium 8.3 L (8.4-10.2) mg/dL 12/10/23 12/10/23 12/10/23 Range/Units 11:31 16:31 20:24 WBC (3.8-10.6) k/uL RBC (4.30-5.90) m/uL Hgb (13.0-17.5) gm/dL Hct (39.0-53.0) % RDW (11.5-15.5) % Neutrophils # (1.3-7.7) k/uL Lymphocytes # (1.0-4.8) k/uL Sodium (137-145) mmol/L Potassium (3.5-5.1) mmol/L Chloride (98-107) mmol/L Carbon Dioxide (22-30) mmol/L Creatinine (0.66-1.25) mg/dL Glucose (74-99) mg/dL POC Glucose (mg/dL) 193 H 231 H 184 H (70-110) mg/dL Calcium (8.4-10.2) mg/dL Microbiology - Last 24 Hours (Table) 12/06/23 14:10 Blood Culture - Preliminary Blood 12/06/23 14:26 Blood Culture - Preliminary Blood Assessment and Plan Assessment: Acute COPD exacerbation Acute on chronic hypoxic respiratory failure secondary to COPD exacerbation. Patient was requiring BiPAP. Currently transition to nasal cannula oxygen. Chronic hypoxic respiratory failure on home oxygen 3 L via nasal cannula. Obstructive sleep apnea Alcohol use disorder at risk of alcohol withdrawal Paroxysmal A-fib and RVR. Currently on sinus rhythm. Continue with Cardizem CD. Not on anticoagulation due to prior history of GI bleed. Coronary arteries with history of stent placement Hypovolemic hyponatremia Hypotensive, present on admission Dehydration secondary to above Diarrhea x 2 days prior to hospitalization. Ruled out C. difficile Elevated lactic acid, improvement Moderate calorie protein malnutrition Nicotine dependence Marijuana use disorder Plan: Continue with IV steroids Continue with IV hydration with normal saline and reduce rate. Monitor sodium level Continue with CIWA and thiamine Continue with the bronchodilators and inhaled steroids Continue with BiPAP as needed Pulmonary and nephrology is on board. Cardiology is on board. Short-acting Cardizem changed to Cardizem CD. Not on anticoagulation due to prior history of GI bleed. Labs and medication were reviewed.. Monitor labs and vitals. DVT and GI prophylaxis. DVT prophylaxis: Subcutaneous heparin GI Prophylaxis: Ppi Prognosis is guarded Time with Patient: Greater than 30
--- NOTE | 2023-12-11 23:41 | P.PN ---
Subjective Progress Note Date: 12/11/23 This is a pleasant 63 years old male with past medical history of A-fib, coronary artery disease, COPD, DVT, GERD, hyperlipidemia, osteoarthritis, hypertension, sleep apnea Presents because of worsening shortness of breath and alcohol withdrawal symptoms Patient also complaining from cough with little phlegm Chest pain with coughing Also has been complaining from diarrhea over the last 2 days stated about 10 times per day, patient looks dehydrated He has history of coronary artery disease s/p 3 stents, his director nursing service Dr. Magaña. He was taking aspirin 81 mg as he states He is complaining from bilateral leg swelling. On admission patient was tachypneic and hypoxic and he was placed on BiPAP Blood pressure was 94/64 which is hypertensive for him, he was tachycardic with heart rate 156-165, he is known case of A-fib and EKG showing A-fib with RVR of a rate of 147, troponin is negative. He has mild leukocytosis 13.6, hemoglobin 12.9, sodium 120, liver enzymes mildly elevated Lactic acid 5.3 and 2.5 Chest x-ray is negative for acute process, showed COPD changes He is currently on CIWA, Cardizem drip and given normal saline boluses. Patient was admitted with pulmonary and cardiology consult 12/07/23 Patient breathing is improving and currently at home he is on 3 L/min of oxygen with good oxygen saturation.5 Nicotine patch added He still has tremor undergoing alcohol withdrawal, no delirium but he is on CIWA Heart rate is better controlled and blood pressure improved. Cardizem 30 mg 3 times daily added by director nursing service Sodium 124 and 122, nephrology following closely. Normal saline 75 mL/h was discontinued today He remains on normal saline, IV Solu-Medrol, Zithromax and home dose of aspirin 81 mg 12/08/23 Patient overall is improving His dyspnea is better His vitals are all better Except for mild tachycardia but is still improving Ms. Meeks and alcohol withdrawal symptoms Appetite is improving Had normal bowel movement getting normal saline 75 mL/h, sodium improving slowly and gradually went 0.5 and 1.6 Mild leukocytosis and anemia stable Remains on IV Solu-Medrol and Zithromax 12/09/2023 Patient is currently sitting in the bed. Awake alert and oriented. Seems to be weak and lethargic. Currently requiring 3 L oxygen via nasal cannula. Patient is off BiPAP. Still having shortness of breath and exertional dyspnea. Currently on IV hydration with normal saline at 75 cc/h. Otherwise patient is being continued on DuoNebs, IV Solu-Medrol, Pulmicort and Perforomist. Patient is also on CIWA protocol. Blood cultures showed no growth. Laboratory data showed WBC 9.1 hemoglobin 10.7 and platelets 282, sodium 127 potassium 2.9 chloride 94 bicarb is 31 BUN 7 and creatinine 0.29 and blood sugar is 120. Calcium 8.3. Pulmonary and nephrology is on board. 12/10/2023 Patient is more awake and oriented today. Able to sit in the chair. Tolerating oral diet. On oxygen via nasal cannula at 3 L baseline. Patient did utilize BiPAP overnight. Still having bilateral expiratory wheezing. Breath sounds slightly improved compared to yesterday. Patient has been afebrile. Laboratory data showed WBC 12.2 hemoglobin 10.8 and platelets 245 sodium 129 potassium 3.4 chloride 90 bicarb is 39 BUN 12 and creatinine 0.35 blood sugar 137 and calcium 8.3. Patient is being continued on IV Solu-Medrol, DuoNebs, Pulmicort and Perforomist. Short-acting Cardizem changed to Cardizem CD. Patient is not on anticoagulation due to prior history of GI bleed. Patient completed antibiotic course for 3 days. 12/11/2023 Patient is currently sitting in a chair. Awake alert and oriented. Requiring oxygen 3 L via nasal cannula at baseline. Able to tolerate oral diet. Breathing status is much improved. Patient remains on alcohol withdrawal protocol. Chest x-ray today showed no acute process Patient is being continued on IV Solu-Medrol, DuoNebs and Pulmicort/Perforomist Sodium level dropped down to 123. IV fluids on hold. Leukocytosis WBC went up to 15.7 today. Hemoglobin 10.7 and platelets 234 sodium 123 potassium 3.0 chloride 86 bicarb is 36 BUN 39 creatinine 0.33. Current medications reviewed. Objective - Vital Signs Vital signs: Vital Signs Temp 97.8 F 12/11/23 15:58 Pulse 80 12/11/23 18:52 Resp 16 12/11/23 15:58 BP 131/69 12/11/23 15:58 Pulse Ox 97 12/11/23 15:58 FiO2 40 12/11/23 00:31 Intake & Output 12/11/23 12/11/23 12/12/23 06:59 18:59 06:59 Intake Total 1440 Output Total 1550 4400 Balance -1550 -2960 Weight 60.5 kg Intake: Oral 1440 Output: Urine 1550 4400 Other: Voiding Method External Catheter External Catheter # Voids 1 # Bowel Movements 1 1 - Exam - Exam -GENERAL: The patient is alert and oriented x3, not in any acute distress. Generally weak, thin built HEENT: Pupils are round and equally reacting to light. EOMI. No scleral icterus. No conjunctival pallor. Normocephalic, atraumatic. No pharyngeal erythema. No thyromegaly. CARDIOVASCULAR: S1 and S2 present. No murmurs, rubs, or gallops. -PULMONARY: Bibasilar coarse breath sounds and mild expiratory wheezing. Nonlabored breathing. ABDOMEN: Soft, nontender, nondistended, normoactive bowel sounds. No palpable organomegaly. MUSCULOSKELETAL: No joint swelling or deformity. EXTREMITIES: No cyanosis, clubbing, or pedal edema. NEUROLOGICAL: Gross neurological examination did not reveal any focal deficits. SKIN: No rashes. no petechiae. - Labs CBC & Chem 7: 12/11/23 06:25 12/11/23 21:34 Labs: Abnormal Lab Results - Last 24 Hours (Table) 12/11/23 12/11/23 12/11/23 Range/Units 06:11 06:25 06:25 WBC 15.7 H (3.8-10.6) k/uL RBC 3.44 L (4.30-5.90) m/uL Hgb 10.7 L (13.0-17.5) gm/dL Hct 33.1 L (39.0-53.0) % Neutrophils # 14.5 H (1.3-7.7) k/uL Lymphocytes # 0.1 L (1.0-4.8) k/uL Sodium 123 L (137-145) mmol/L Potassium 3.0 L (3.5-5.1) mmol/L Chloride 86 L (98-107) mmol/L Carbon Dioxide 36 H (22-30) mmol/L Creatinine 0.33 L (0.66-1.25) mg/dL Glucose 120 H (74-99) mg/dL POC Glucose (mg/dL) 128 H (70-110) mg/dL Urine Osmolality (400-1100) mOsm/kg 12/11/23 12/11/23 12/11/23 Range/Units 11:37 12:32 15:05 WBC (3.8-10.6) k/uL RBC (4.30-5.90) m/uL Hgb (13.0-17.5) gm/dL Hct (39.0-53.0) % Neutrophils # (1.3-7.7) k/uL Lymphocytes # (1.0-4.8) k/uL Sodium 124 L (137-145) mmol/L Potassium (3.5-5.1) mmol/L Chloride (98-107) mmol/L Carbon Dioxide (22-30) mmol/L Creatinine (0.66-1.25) mg/dL Glucose (74-99) mg/dL POC Glucose (mg/dL) 194 H (70-110) mg/dL Urine Osmolality 277 L (400-1100) mOsm/kg 12/11/23 12/11/23 12/11/23 Range/Units 16:46 20:09 21:34 WBC (3.8-10.6) k/uL RBC (4.30-5.90) m/uL Hgb (13.0-17.5) gm/dL Hct (39.0-53.0) % Neutrophils # (1.3-7.7) k/uL Lymphocytes # (1.0-4.8) k/uL Sodium 124 L (137-145) mmol/L Potassium (3.5-5.1) mmol/L Chloride (98-107) mmol/L Carbon Dioxide (22-30) mmol/L Creatinine (0.66-1.25) mg/dL Glucose (74-99) mg/dL POC Glucose (mg/dL) 176 H 483 H (70-110) mg/dL Urine Osmolality (400-1100) mOsm/kg Microbiology - Last 24 Hours (Table) 12/06/23 14:10 Blood Culture - Final Blood 12/06/23 14:26 Blood Culture - Final Blood Assessment and Plan Assessment: Acute COPD exacerbation Acute on chronic hypoxic respiratory failure secondary to COPD exacerbation. Patient was requiring BiPAP. Currently transition to nasal cannula oxygen. Chronic hypoxic respiratory failure on home oxygen 3 L via nasal cannula. Obstructive sleep apnea Alcohol use disorder at risk of alcohol withdrawal Paroxysmal A-fib and RVR. Currently on sinus rhythm. Continue with Cardizem CD. Not on anticoagulation due to prior history of GI bleed. Coronary arteries with history of stent placement Hypovolemic hyponatremia. Possible component of SIADH Hypotensive, present on admission Dehydration secondary to above Diarrhea x 2 days prior to hospitalization. Ruled out C. difficile Elevated lactic acid, improvement Moderate calorie protein malnutrition Nicotine dependence Marijuana use disorder Plan: Continue with IV steroids and DuoNebs. Continue with CIWA and thiamine Patient is currently on 3 L oxygen via nasal cannula. IV fluids on hold due to decrease in sodium level to 123 today. Encourage oral intake Pulmonary and nephrology is on board. Cardiology is on board. Short-acting Cardizem changed to Cardizem CD. Not on anticoagulation due to prior history of GI bleed. Labs and medication were reviewed.. Monitor labs and vitals. DVT and GI prophylaxis. DVT prophylaxis: Subcutaneous heparin GI Prophylaxis: Ppi Prognosis is guarded Time with Patient: Greater than 30
[2023-12-12 02:04] LABS: Glucose,Whole Blood 112 mg/dL (70-110)
[2023-12-12 06:00] LABS: Glucose,Whole Blood 112 mg/dL (70-110)
[2023-12-12 09:09] LABS: Basophils % (A) 0 %; Eosinophils # (A) 0.2 k/uL (0-0.7); Eosinophils % (A) 2 %; HCT 33.8 % (39.0-53.0); HGB 11.1 gm/dL (13.0-17.5); Lymphocytes # (A) 0.3 k/uL (1.0-4.8); Lymphocytes % (A) 2 %; MCHC 32.8 g/dL (31.0-37.0); MCV 94.7 fL (80.0-100.0); Mean Platelet Volume 7.8; Monocytes % (A) 7 %; Neutrophils # (A) 12.7 k/uL (1.3-7.7); Neutrophils % (A) 88 %; Platelet Count 239 k/uL (150-450); RBC 3.57 m/uL (4.30-5.90); RDW 15.7 % (11.5-15.5); WBC 14.4 k/uL (3.8-10.6)
[2023-12-12 09:16] LABS: ALT 50 U/L (4-49); African American GFR (CKD) >90 (>60 ml/min/1.73 sqM); Anion Gap 3 mmol/L; Blood Urea Nitrogen 15 mg/dL (9-20); Calcium 8.6 mg/dL (8.4-10.2); Chloride 83 mmol/L (98-107); Glucose 77 mg/dL (74-99); Non-African American GFR(CKD) >90 (>60 ml/min/1.73 sqM); Sodium 126 mmol/L (137-145)
[2023-12-12 09:35] LABS: AST 48 U/L (17-59); Albumin 3.4 g/dL (3.5-5.0); Alkaline Phosphatase 111 U/L (38-126); Potassium 3.6 mmol/L (3.5-5.1); Total Protein 5.7 g/dL (6.3-8.2)
[2023-12-12 11:46] LABS: Glucose,Whole Blood 134 mg/dL (70-110)
--- NOTE | 2023-12-12 13:01 | P.PN ---
Subjective patient is seen for follow-up for hyponatremia. History of significant EtOH abuse. Being treated for COPD exacerbation. no significant complaints today. sodium has dropped with restarting saline. Status post Lasix and improved to 126 today. Objective - Vital Signs Vital signs: Vital Signs Temp 97.6 F 12/12/23 08:05 Pulse 80 12/12/23 12:38 Resp 19 12/12/23 12:00 BP 115/73 12/12/23 12:00 Pulse Ox 97 12/12/23 12:00 FiO2 40 12/11/23 00:31 Intake & Output 12/11/23 12/12/23 12/12/23 18:59 06:59 18:59 Intake Total 1440 360 Output Total 4400 2000 Balance -2960 -1999 360 Weight 54.1 kg Intake: Oral 1440 360 Output: Urine 4400 2000 Other: Voiding Method External Catheter External Catheter External Catheter # Bowel Movements 1 - Exam Patient is awake, comfortable, in no acute distress. Examination of the heart S1 and S2 Examination of the lungs bilateral breath sounds are heard next nontender Examination of lower extremities shows trace edema bilaterally [employer] exam grossly intact, no asterixis noted - Labs CBC & Chem 7: 12/12/23 08:57 12/12/23 10:39 Labs: Abnormal Lab Results - Last 24 Hours (Table) 12/11/23 12/11/23 12/11/23 Range/Units 12:32 15:05 16:46 WBC (3.8-10.6) k/uL RBC (4.30-5.90) m/uL Hgb (13.0-17.5) gm/dL Hct (39.0-53.0) % RDW (11.5-15.5) % Neutrophils # (1.3-7.7) k/uL Lymphocytes # (1.0-4.8) k/uL Sodium 124 L (137-145) mmol/L Chloride (98-107) mmol/L Carbon Dioxide (22-30) mmol/L Creatinine (0.66-1.25) mg/dL POC Glucose (mg/dL) 176 H (70-110) mg/dL ALT (4-49) U/L Total Protein (6.3-8.2) g/dL Albumin (3.5-5.0) g/dL Urine Osmolality 277 L (400-1100) mOsm/kg 12/11/23 12/11/23 12/12/23 Range/Units 20:09 21:34 02:03 WBC (3.8-10.6) k/uL RBC (4.30-5.90) m/uL Hgb (13.0-17.5) gm/dL Hct (39.0-53.0) % RDW (11.5-15.5) % Neutrophils # (1.3-7.7) k/uL Lymphocytes # (1.0-4.8) k/uL Sodium 124 L (137-145) mmol/L Chloride (98-107) mmol/L Carbon Dioxide (22-30) mmol/L Creatinine (0.66-1.25) mg/dL POC Glucose (mg/dL) 483 H 112 H (70-110) mg/dL ALT (4-49) U/L Total Protein (6.3-8.2) g/dL Albumin (3.5-5.0) g/dL Urine Osmolality (400-1100) mOsm/kg 12/12/23 12/12/23 12/12/23 Range/Units 05:59 07:49 08:57 WBC 14.4 H (3.8-10.6) k/uL RBC 3.57 L (4.30-5.90) m/uL Hgb 11.1 L (13.0-17.5) gm/dL Hct 33.8 L (39.0-53.0) % RDW 15.7 H (11.5-15.5) % Neutrophils # 12.7 H (1.3-7.7) k/uL Lymphocytes # 0.3 L (1.0-4.8) k/uL Sodium 126 L (137-145) mmol/L Chloride 83 L (98-107) mmol/L Carbon Dioxide (22-30) mmol/L Creatinine 0.33 L (0.66-1.25) mg/dL POC Glucose (mg/dL) 112 H (70-110) mg/dL ALT 50 H (4-49) U/L Total Protein 5.7 L (6.3-8.2) g/dL Albumin 3.4 L (3.5-5.0) g/dL Urine Osmolality (400-1100) mOsm/kg 12/12/23 12/12/23 Range/Units 10:39 11:44 WBC (3.8-10.6) k/uL RBC (4.30-5.90) m/uL Hgb (13.0-17.5) gm/dL Hct (39.0-53.0) % RDW (11.5-15.5) % Neutrophils # (1.3-7.7) k/uL Lymphocytes # (1.0-4.8) k/uL Sodium (137-145) mmol/L Chloride (98-107) mmol/L Carbon Dioxide 38 H (22-30) mmol/L Creatinine (0.66-1.25) mg/dL POC Glucose (mg/dL) 134 H (70-110) mg/dL ALT (4-49) U/L Total Protein (6.3-8.2) g/dL Albumin (3.5-5.0) g/dL Urine Osmolality (400-1100) mOsm/kg Microbiology - Last 24 Hours (Table) 12/06/23 14:10 Blood Culture - Final Blood 12/06/23 14:26 Blood Culture - Final Blood Assessment and Plan Assessment: 1. Hyponatremia secondary to significant alcohol intake and poor nutrition and decreased urinary solute. Improved post normal saline, initially. Serum sodium worsened after saline was restarted and improved again with IV Lasix. 2. A. fib with RVR status post Cardizem drip with improvement in heart rate 3. History of EtOH abuse 4. COPD with acute exacerbation Plan: Continue off of IV fluids. Repeat sodium later this afternoon. Patient is encouraged to increase oral intake particularly protein. Repeat labs in a.m.
[2023-12-12 13:58] VITALS: BMI 17.1
--- NOTE | 2023-12-12 15:26 | P.PN ---
Subjective Progress Note Date: 12/12/23 This is a 63-year-old male patient with a known history of severe chronic obstructive pulmonary disease, chronic and ongoing tobacco dependence, daily alcohol use, marijuana use, coronary disease with previous stent placement, hypertension, hyperlipidemia, atrial fibrillation. He presented here to the em ergency room earlier this morning with complaints of shortness of breath. He states he had stopped drinking alcohol but did admit to having 1 beer this morning. Chest x-ray shows evidence of hyperinflation compatible with COPD but no acute pulmonary process. White count 13.6. Hemoglobin 12.9. Platelets 375. Sodium 120. Potassium 3.9. Bicarb 30. BUN 3. Creatinine 0.32. Glucose 99. AST 64. ALT 52. Serum alcohol level 94. He was having increased work of breathing. He is seen in the emergency department. He is on BiPAP 10/5 and 40% FiO2. He is currently on a Cardizem drip at 5 mg/h. He does have lower extremity edema 1-2+. Sinus tachycardia on monitor. Progress note dated December 07 2023. Patient is a 63-year-old male with a known history of COPD, chronic and ongoing tobacco dependence, daily alcohol use, marijuana use, CAD with previous stent placement, hypertension, hyperlipidemia and atrial fibrillation with RVR. He presented to the ED yesterday with complaints of shortness of breath. He was seen today in room 379 and he was on 3 L of oxygen. Uses BiPAP machine at night with IPAP of 10 cmH2O, EPAP of 5 cm H2O and FiO2 40%. Alcohol withdrawal tremors were noted. Cardizem drip at 5mg/hr. He is not on any fluids. Pro-Bennie level 0.06. Continue lorazepam, Solu-Medrol, DuoNeb, budesonide and formoterol.Patient educated about quitting alcohol and smoking for good. Nicotine 21mg/24hr patch order has been placed. Zithromax has been discontinued. CIWA protocol with thiamine. Labs show WBC 5.2, Hb 7.3, platelets 296, Na 124,K 4.2, Cl 89, BUN 6, Creatinine 0.31, glucose 121. Total protein 5.6 and albumin 3.2. Prognosis is guarded. Will continue to follow and make recommendations. The patient is seen today December 08, 2023 in follow-up on the selective care unit. He is currently sitting up in bed. Awake and alert. He has been having symptoms of withdrawal. He is tremorous at times. Confused at times. Family is at the bedside. He is on the CIWA protocol. He is currently maintaining O2 saturations in the 90s on 3 L/min per nasal cannula. Alternating with BiPAP 10/5 and 40% FiO2. Normal saline at 75 MLS per hour. Cultures are pending. White count 10.8. Hemoglobin 11.7. Platelets 341. Sodium 126. Potassium 3.5. Bicarb 32. BUN 6. Creatinine 0.30. Glucose 139. He is continued on DuoNeb inhalations, Pulmicort and Perforomist inhalations, IV Solu-Medrol. NicoDerm patch in place. The patient is seen today December 09, 2023 in follow-up on the selective care unit. He is currently resting in bed. Awake and alert in no acute distress. He is maintaining O2 saturations in the 90s on 3 L/min per nasal cannula. He is currently off the BiPAP which is set at 10/5 and 40% FiO2. He has normal saline at 75 MLS per hour. He remains on DuoNeb inhalations, Pulmicort and Perforomist inhalations, Solu-Medrol. NicoDerm patch in place. He remains on the CIWA protocol. Heparin for DVT prophylaxis. Blood cultures revealed no growth. W minesh count 9.5. Hemoglobin 10.7. Platelets 289. Sodium 127. Potassium 2.9. Bicarb 31. BUN 7. Creatinine 0.29. Glucose 120. The patient is seen today December 10, 2023 in follow-up on the selective care unit. He is currently sitting up in a chair at the bedside. Awake and alert in no acute distress. Maintaining O2 saturations in the 90s on 3 L/min per nasal cannula. Utilizing BiPAP at night 10/5 and 40% FiO2. He is still wheezing but sounding better today compared to yesterday. White count 12.2. Hemoglobin 10.8. Platelets 245. Sodium 129. Potassium 3.4. Bicarb 39. BUN 12. Crea tinine 0.35. Glucose 137. He is continued on DuoNeb inhalations, Pulmicort and Perforomist inhalations, Solu-Medrol. NicoDerm patch in place. Remains on the CIWA protocol. The patient is seen today December 11, 2023 in follow-up on the selective care unit. He is awake and alert in no acute distress. Sitting up in a chair. Maintaining good O2 saturations in the 90s 3 L/min per nasal cannula. He is afebrile. Hemodynamically stable. He is continued on DuoNeb inhalations, Pulmicort and Perforomist inhalations, Solu-Medrol. NicoDerm patch in place. Remains on the CIDE protocol. Chest x-ray shows no acute pulmonary process. White count 15.7. Hemoglobin 10.7. Platelets 234. Sodium 124. Potassium 3.0. Bicarb 36. BUN 13. Creatinine 0.33. Glucose 120. The patient is seen today December 12, 2023 in follow-up on the selective care unit. He is currently sitting up in a chair. Awake and alert in no acute distress. Maintaining good O2 saturations in the 90s on 3 L/min per nasal can nula. Cultures revealed no growth. White count 14.4. Hemoglobin 11.1. Platelets 239. Sodium 126. Potassium 3.6. Bicarb 38. BUN 15. Creatinine 0.33. He remains on DuoNeb inhalations, Pulmicort and Perforomist inhalations, IV Solu-Medrol. Heparin for DVT prophylaxis. NicoDerm patch in place. Objective - Vital Signs Vital signs: Vital Signs Temp 97.6 F 12/12/23 08:05 Pulse 80 12/12/23 12:38 Resp 19 12/12/23 12:00 BP 115/73 12/12/23 12:00 Pulse Ox 97 12/12/23 12:00 FiO2 40 12/11/23 00:31 Intake & Output 12/11/23 12/12/23 12/12/23 18:59 06:59 18:59 Intake Total 1440 480 Output Total 4400 1999 Balance -296 -1999 Weight 54.1 kg 54.1 kg Intake: Oral 1440 480 Output: Urine 4400 1999 70 Other: Voiding Method External Catheter External Catheter External Catheter # Bowel Movements 1 2 - Exam GENERAL EXAM: Alert, weak, thin 63-year-old male, up in a chair, on 3 L nasal cannula, in no apparent distress. HEAD: Normocephalic. EYES: Normal reaction of pupils, equal size. NOSE: Clear with pink turbinates. THROAT: No erythema or exudates. NECK: No masses, no JVD. CHEST: No chest wall deformity. LUNGS: Equal air entry with bilateral end expiratory wheeze, diminished CVS: S1 and S2 normal with no audible murmur, regular rhythm. ABDOMEN: No hepatosplenomegaly, normal bowel sounds, no guarding or rigidity. SPINE: No scoliosis or deformity SKIN: No rashes CENTRAL NERVOUS SYSTEM: No focal deficits, tone is normal in all 4 extremities. EXTREMITIES: There is no peripheral edema. No clubbing, no cyanosis. Peripheral pulses are intact. - Labs CBC & Chem 7: 12/12/23 08:57 12/12/23 10:39 Labs: Abnormal Lab Results - Last 24 Hours (Table) 12/11/23 12/11/23 12/11/23 Range/Units 12:32 15:05 16:46 WBC (3.8-10.6) k/uL RBC (4.30-5.90) m/uL Hgb (13.0-17.5) gm/dL Hct (39.0-53.0) % RDW (11.5-15.5) % Neutrophils # (1.3-7.7) k/uL Lymphocytes # (1.0-4.8) k/uL Sodium 124 L (137-145) mmol/L Chloride (98-107) mmol/L Carbon Dioxide (22-30) mmol/L Creatinine (0.66-1.25) mg/dL POC Glucose (mg/dL) 176 H (70-110) mg/dL ALT (4-49) U/L Total Protein (6.3-8.2) g/dL Albumin (3.5-5.0) g/dL Urine Osmolality 277 L (400-1100) mOsm/kg 12/11/23 12/11/23 12/12/23 Range/Units 20:09 21:34 02:03 WBC (3.8-10.6) k/uL RBC (4.30-5.90) m/uL Hgb (13.0-17.5) gm/dL Hct (39.0-53.0) % RDW (11.5-15.5) % Neutrophils # (1.3-7.7) k/uL Lymphocytes # (1.0-4.8) k/uL Sodium 124 L (137-145) mmol/L Chloride (98-107) mmol/L Carbon Dioxide (22-30) mmol/L Creatinine (0.66-1.25) mg/dL POC Glucose (mg/dL) 483 H 112 H (70-110) mg/dL ALT (4-49) U/L Total Protein (6.3-8.2) g/dL Albumin (3.5-5.0) g/dL Urine Osmolality (400-1100) mOsm/kg 12/12/23 12/12/23 12/12/23 Range/Units 05:59 07:49 08:57 WBC 14.4 H (3.8-10.6) k/uL RBC 3.57 L (4.30-5.90) m/uL Hgb 11.1 L (13.0-17.5) gm/dL Hct 33.8 L (39.0-53.0) % RDW 15.7 H (11.5-15.5) % Neutrophils # 12.7 H (1.3-7.7) k/uL Lymphocytes # 0.3 L (1.0-4.8) k/uL Sodium 126 L (137-145) mmol/L Chloride 83 L (98-107) mmol/L Carbon Dioxide (22-30) mmol/L Creatinine 0.33 L (0.66-1.25) mg/dL POC Glucose (mg/dL) 112 H (70-110) mg/dL ALT 50 H (4-49) U/L Total Protein 5.7 L (6.3-8.2) g/dL Albumin 3.4 L (3.5-5.0) g/dL Urine Osmolality (400-1100) mOsm/kg 12/12/23 12/12/23 Range/Units 10:39 11:44 WBC (3.8-10.6) k/uL RBC (4.30-5.90) m/uL Hgb (13.0-17.5) gm/dL Hct (39.0-53.0) % RDW (11.5-15.5) % Neutrophils # (1.3-7.7) k/uL Lymphocytes # (1.0-4.8) k/uL Sodium (137-145) mmol/L Chloride (98-107) mmol/L Carbon Dioxide 38 H (22-30) mmol/L Creatinine (0.66-1.25) mg/dL POC Glucose (mg/dL) 134 H (70-110) mg/dL ALT (4-49) U/L Total Protein (6.3-8.2) g/dL Albumin (3.5-5.0) g/dL Urine Osmolality (400-1100) mOsm/kg Microbiology - Last 24 Hours (Table) 12/06/23 14:10 Blood Culture - Final Blood 12/06/23 14:26 Blood Culture - Final Blood Assessment and Plan Assessment: Acute on chronic hypoxemic respiratory failure secondary to an acute exacerbation of chronic obstructive pulmonary disease currently on 3 L nasal cannula and at times requiring BiPAP 10/5 and 40% FiO2 Oxygen dependent COPD, on 3 L nasal cannula when off BiPAP Obstructive sleep apnea utilizing home CPAP Chronic and ongoing tobacco dependence Daily alcohol use, alcohol level 94 on admission Hyponatremia suspect secondary to above Coronary artery disease with previous stent placements Peripheral vascular disease with femoral bypass History of atrial fibrillation Hypertension Hyperlipidemia Marijuana use Plan: The patient was seen and evaluated Labs and medications reviewed Stable on 3 L nasal cannula Continue the current treatment plan Increase his activity as tolerated Plan is for subacute rehab at [facility] I have personally seen and examined the patient, performed the documentation and the assessment and plan as written. Number of minutes spent on the visit: 10.
[2023-12-12 17:40] LABS: Glucose,Whole Blood 252 mg/dL (70-110)
[2023-12-12 20:07] LABS: Glucose,Whole Blood 220 mg/dL (70-110)
[2023-12-12] MEDS: methylPREDNISolone SOD SUCCI 40 MG/ML 1 ML VIAL IV SCH (23:08)
[2023-12-13 02:07] LABS: Glucose,Whole Blood 167 mg/dL (70-110)
[2023-12-13 06:22] LABS: Glucose,Whole Blood 177 mg/dL (70-110)
[2023-12-13 08:29] LABS: Basophils % (A) 0 %; Eosinophils % (A) 0 %; HGB 12.1 gm/dL (13.0-17.5); Hypochromasia Slight; Lymphocytes # (A) 0.2 k/uL (1.0-4.8); Lymphocytes % (A) 2 %; MCH 30.6 pg (25.0-35.0); MCHC 31.8 g/dL (31.0-37.0); MCV 96.1 fL (80.0-100.0); Monocytes # (A) 0.6 k/uL (0-1.0); Monocytes % (A) 6 %; Neutrophils # (A) 9.6 k/uL (1.3-7.7); Neutrophils % (A) 92 %; Platelet Count 284 k/uL (150-450); RBC 3.95 m/uL (4.30-5.90); RDW 15.3 % (11.5-15.5); WBC 10.5 k/uL (3.8-10.6)
[2023-12-13 08:49] LABS: African American GFR (CKD) >90 (>60 ml/min/1.73 sqM); Blood Urea Nitrogen 15 mg/dL (9-20); Calcium 8.9 mg/dL (8.4-10.2); Chloride 85 mmol/L (98-107); Glucose 116 mg/dL (74-99); Non-African American GFR(CKD) >90 (>60 ml/min/1.73 sqM); Sodium 128 mmol/L (137-145)
[2023-12-13 11:31] LABS: Glucose,Whole Blood 134 mg/dL (70-110)
--- NOTE | 2023-12-13 12:08 | P.PN ---
Subjective Patient is seen for follow-up for hyponatremia. History of significant EtOH abuse. Being treated for COPD exacerbation. no significant complaints today. sodium had dropped with restarting saline. Status post Lasix and improved to 128 today. Objective - Vital Signs Vital signs: Vital Signs Temp 97.7 F 12/13/23 09:22 Pulse 80 12/13/23 11:58 Resp 16 12/13/23 11:55 BP 135/79 12/13/23 11:55 Pulse Ox 97 12/13/23 11:55 FiO2 40 12/11/23 00:31 Intake & Output 12/12/23 12/13/23 12/13/23 18:59 06:59 18:59 Intake Total 480 358 Output Total 1603 2300 Balance -1123 -2300 358 Weight 54.1 kg 52.3 kg Intake: Oral 480 358 Output: Urine 1603 2300 Other: Voiding Method External Catheter External Catheter # Bowel Movements 2 2 - Exam Patient is awake, comfortable, in no acute distress. Examination of the heart S1 and S2 Examination of the lungs bilateral breath sounds are heard next nontender Examination of lower extremities shows trace edema bilaterally LAB SUPPORT SERVICE TECH exam grossly intact, no asterixis noted - Labs CBC & Chem 7: 12/13/23 07:56 12/13/23 07:56 Labs: Abnormal Lab Results - Last 24 Hours (Table) 12/12/23 12/12/23 12/13/23 Range/Units 17:38 20:02 02:04 RBC (4.30-5.90) m/uL Hgb (13.0-17.5) gm/dL Hct (39.0-53.0) % Neutrophils # (1.3-7.7) k/uL Lymphocytes # (1.0-4.8) k/uL Sodium (137-145) mmol/L Potassium (3.5-5.1) mmol/L Chloride (98-107) mmol/L Creatinine (0.66-1.25) mg/dL Glucose (74-99) mg/dL POC Glucose (mg/dL) 252 H 220 H 167 H (70-110) mg/dL 12/13/23 12/13/23 12/13/23 Range/Units 06:21 07:56 07:56 RBC 3.95 L (4.30-5.90) m/uL Hgb 12.1 L (13.0-17.5) gm/dL Hct 38.0 L (39.0-53.0) % Neutrophils # 9.6 H (1.3-7.7) k/uL Lymphocytes # 0.2 L (1.0-4.8) k/uL Sodium 128 L (137-145) mmol/L Potassium 3.0 L (3.5-5.1) mmol/L Chloride 85 L (98-107) mmol/L Creatinine 0.40 L (0.66-1.25) mg/dL Glucose 116 H (74-99) mg/dL POC Glucose (mg/dL) 177 H (70-110) mg/dL 12/13/23 Range/Units 11:30 RBC (4.30-5.90) m/uL Hgb (13.0-17.5) gm/dL Hct (39.0-53.0) % Neutrophils # (1.3-7.7) k/uL Lymphocytes # (1.0-4.8) k/uL Sodium (137-145) mmol/L Potassium (3.5-5.1) mmol/L Chloride (98-107) mmol/L Creatinine (0.66-1.25) mg/dL Glucose (74-99) mg/dL POC Glucose (mg/dL) 134 H (70-110) mg/dL Assessment and Plan Assessment: 1. Hyponatremia secondary to significant alcohol intake and poor nutrition and decreased urinary solute. Improved post normal saline, initially. Serum sodium worsened after saline was restarted and improved again with IV Lasix. 2. A. fib with RVR status post Cardizem drip with improvement in heart rate 3. History of EtOH abuse 4. COPD with acute exacerbation Plan: Continue off of IV fluids. Repeat sodium in am. Patient is encouraged to increase oral intake particularly protein. Repeat labs in a.m.
[2023-12-13 13:39] LABS: Anion Gap 8 mmol/L; Carbon Dioxide 35 mmol/L (22-30)
[2023-12-13] MEDS: POTASSIUM CHLORIDE ER 20 MEQ TAB.ER PO SCH (13:52)
[2023-12-13] MEDS: POTASSIUM CHLORIDE ER 20 MEQ TAB.ER PO STA (13:52)
--- NOTE | 2023-12-13 14:36 | P.PN ---
Subjective Progress Note Date: 12/13/23 Principal diagnosis: Acute on chronic hypoxic respiratory failure secondary to acute exacerbation of COPD This is a 63-year-old male patient with a known history of severe chronic obstructive pulmonary disease, chronic and ongoing tobacco dependence, daily alcohol use, marijuana use, coronary disease with previous stent placement, hypertension, hyperlipidemia, atrial fibrillation. He presented here to the emergency room earlier this morning with complaints of shortness of breath. He states he had stopped drinking alcohol but did admit to having 1 beer this morning. Chest x-ray shows evidence of hyperinflation compatible with COPD but no acute pulmonary process. White count 13.6. Hemoglobin 12.9. Platelets 375. Sodium 120. Potassium 3.9. Bicarb 30. BUN 3. Creatinine 0.32. Glucose 99. AST 64. ALT 52. Serum alcohol level 94. He was having increased work of breathing. He is seen in the emergency department. He is on BiPAP 10/5 and 40% FiO2. He is currently on a Cardizem drip at 5 mg/h. He does have lower extremity edema 1-2+. Sinus tachycardia on monitor. Progress note dated December 07 2023. Patient is a 63-year-old male with a known history of COPD, chronic and ongoing tobacco dependence, daily alcohol use, marijuana use, CAD with previous stent placement, hypertension, hyperlipidemia and atrial fibrillation with RVR. He presented to the ED yesterday with complaints of shortness of breath. He was seen today in room 379 and he was on 3 L of oxygen. Uses BiPAP machine at night with IPAP of 10 cmH2O, EPAP of 5 cm H2O and FiO2 40%. Alcohol withdrawal tremors were noted. Cardizem drip at 5mg/hr. He is not on any fluids. Pro-Bennie level 0.06. Continue lorazepam, Solu-Medrol, DuoNeb, budesonide and formoterol.Patient educated about quitting alcohol and smoking for good. Nicotine 21mg/24hr patch order has been placed. Zithromax has been discontinued. [facility] protocol with thiamine. Labs show WBC 5.2, Hb 7.3, platelets 296, Na 124,K 4.2, Cl 89, BUN 6, Creatinine 0.31, glucose 121. Total protein 5.6 and albumin 3.2. Prognosis is guarded. Will continue to follow and make recommendations. The patient is seen today December 08, 2023 in follow-up on the selective care unit. He is currently sitting up in bed. Awake and alert. He has been having symptoms of withdrawal. He is tremorous at times. Confused at times. Family is at the bedside. He is on the CIWA protocol. He is currently maintaining O2 saturations in the 90s on 3 L/min per nasal cannula. Alternating with BiPAP 10/5 and 40% FiO2. Normal saline at 75 MLS per hour. Cultures are pending. White count 10.8. Hemoglobin 11.7. Platelets 341. Sodium 126. Potassium 3.5. Bicarb 32. BUN 6. Creatinine 0.30. Glucose 139. He is continued on DuoNeb inhalations, Pulmicort and Perforomist inhalations, IV Solu-Medrol. NicoDerm patch in place. The patient is seen today December 09, 2023 in follow-up on the selective care unit. He is currently resting in bed. Awake and alert in no acute distress. He is maintaining O2 saturations in the 90s on 3 L/min per nasal cannula. He is currently off the BiPAP which is set at 10/5 and 40% FiO2. He has normal saline at 75 MLS per hour. He remains on DuoNeb inhalations, Pulmicort and Perforomist inhalations, Solu-Medrol. NicoDerm patch in place. He remains on the CIWA protocol. Heparin for DVT prophylaxis. Blood cultures revealed no growth. White count 9.5. Hemoglobin 10.7. Platelets 289. Sodium 127. Potassium 2.9. Bicarb 31. BUN 7. Creatinine 0.29. Glucose 120. The patient is seen today December 10, 2023 in follow-up on the selective care unit. He is currently sitting up in a chair at the bedside. Awake and alert in no acute distress. Maintaining O2 saturations in the 90s on 3 L/min per nasal cannula. Utilizing BiPAP at night 10/5 and 40% FiO2. He is still wheezing but sounding better today compared to yesterday. White count 12.2. Hemoglobin 10.8. Platelets 245. Sodium 129. Potassium 3.4. Bicarb 39. BUN 12. Creatinine 0.35. Glucose 137. He is continued on DuoNeb inhalations, Pulmicort and Perforomist inhalations, Solu-Medrol. NicoDerm patch in place. Remains on the [facility] protocol. The patient is seen today December 11, 2023 in follow-up on the selective care unit. He is awake and alert in no acute distress. Sitting up in a chair. Maintaining good O2 saturations in the 90s 3 L/min per nasal cannula. He is afebrile. Hemodynamically stable. He is continued on DuoNeb inhalations, Pulmicort and Perforomist inhalations, Solu-Medrol. NicoDerm patch in place. Remains on the [facility] protocol. Chest x-ray shows no acute pulmonary process. White count 15.7. Hemoglobin 10.7. Platelets 234. Sodium 124. Potassium 3.0. Bicarb 36. BUN 13. Creatinine 0.33. Glucose 120. The patient is seen today December 12, 2023 in follow-up on the selective care unit. He is currently sitting up in a chair. Awake and alert in no acute distress. Maintaining good O2 saturations in the 90s on 3 L/min per nasal cannula. Cultures revealed no growth. White count 14.4. Hemoglobin 11.1. Platelets 239. Sodium 126. Potassium 3.6. Bicarb 38. BUN 15. Creatinine 0.33. He remains on DuoNeb inhalations, Pulmicort and Perforomist inhalations, IV Solu-Medrol. Heparin for DVT prophylaxis. NicoDerm patch in place. Patient was seen today on 12/13/2023, remains on oxygen remains on bronchodilators, patient is making significant improvement clinically based on his clinical findings. Patient is receiving DuoNeb Pulmicort Perforomist and he is on prednisone 40 mg p.o. daily. Overall the patient is feeling better, breathing easier, and I believe the patient should be considered for discharge/placement. Last chest x-ray showed no evidence of pneumonia he does have severe COPD/emphysema. Objective - Vital Signs Vital signs: Vital Signs Temp 97.7 F 12/13/23 09:22 Pulse 79 12/13/23 14:10 Resp 16 12/13/23 14:10 BP 135/79 12/13/23 11:55 Pulse Ox 97 12/13/23 11:55 FiO2 40 12/11/23 00:31 Intake & Output 12/12/23 12/13/23 12/13/23 18:59 06:59 18:59 Intake Total 480 358 Output Total 1603 2300 900 Balance -1123 -8960 -542 Weight 54.1 kg 52.3 kg Intake: Oral 480 358 Output: Urine 1603 2300 900 Other: Voiding Method External Catheter External Catheter External Catheter # Bowel Movements 2 2 - Exam GENERAL EXAM: Reveals 63-year-old white male on 3 L nasal cannula, not in distress HEAD: Normocephalic. EYES: Normal reaction of pupils, equal size. NOSE: Clear with pink turbinates. THROAT: No erythema or exudates. NECK: No masses, no JVD. CHEST: No chest wall deformity. LUNGS: Equal air entry minimal wheezing on forced expiratory maneuver CVS: S1 and S2 normal with no audible murmur, regular rhythm. ABDOMEN: No hepatosplenomegaly, normal bowel sounds, no guarding or rigidity. SKIN: No rashes Psychiatric: Flat affect, normal mental status, depressed mood CENTRAL NERVOUS SYSTEM: No focal deficits, tone is normal in all 4 extremities. EXTREMITIES: There is no peripheral edema. No clubbing, no cyanosis. Peripheral pulses are intact. - Labs CBC & Chem 7: 12/13/23 07:56 12/13/23 07:56 Labs: Abnormal Lab Results - Last 24 Hours (Table) 12/12/23 12/12/23 12/13/23 Range/Units 17:38 20:02 02:04 RBC (4.30-5.90) m/uL Hgb (13.0-17.5) gm/dL Hct (39.0-53.0) % Neutrophils # (1.3-7.7) k/uL Lymphocytes # (1.0-4.8) k/uL Sodium (137-145) mmol/L Potassium (3.5-5.1) mmol/L Chloride (98-107) mmol/L Carbon Dioxide (22-30) mmol/L Creatinine (0.66-1.25) mg/dL Glucose (74-99) mg/dL POC Glucose (mg/dL) 252 H 220 H 167 H (70-110) mg/dL 12/13/23 12/13/23 12/13/23 Range/Units 06:21 07:56 07:56 RBC 3.95 L (4.30-5.90) m/uL Hgb 12.1 L (13.0-17.5) gm/dL Hct 38.0 L (39.0-53.0) % Neutrophils # 9.6 H (1.3-7.7) k/uL Lymphocytes # 0.2 L (1.0-4.8) k/uL Sodium 128 L (137-145) mmol/L Potassium 3.0 L (3.5-5.1) mmol/L Chloride 85 L (98-107) mmol/L Carbon Dioxide 35 H (22-30) mmol/L Creatinine 0.40 L (0.66-1.25) mg/dL Glucose 116 H (74-99) mg/dL POC Glucose (mg/dL) 177 H (70-110) mg/dL 12/13/23 Range/Units 11:30 RBC (4.30-5.90) m/uL Hgb (13.0-17.5) gm/dL Hct (39.0-53.0) % Neutrophils # (1.3-7.7) k/uL Lymphocytes # (1.0-4.8) k/uL Sodium (137-145) mmol/L Potassium (3.5-5.1) mmol/L Chloride (98-107) mmol/L Carbon Dioxide (22-30) mmol/L Creatinine (0.66-1.25) mg/dL Glucose (74-99) mg/dL POC Glucose (mg/dL) 134 H (70-110) mg/dL Assessment and Plan Assessment: impression: Acute on chronic hypoxemic respiratory failure secondary to an acute exacerbation of chronic obstructive pulmonary disease currently on 3 L nasal cannula and at times requiring BiPAP 10/5 and 40% FiO2 Oxygen dependent COPD, on 3 L nasal cannula when off BiPAP Obstructive sleep apnea utilizing home CPAP Chronic and ongoing tobacco dependence Daily alcohol use, alcohol level 94 on admission Hyponatremia suspect secondary to above Coronary artery disease with previous stent placements Peripheral vascular disease with femoral bypass History of atrial fibrillation Hypertension Hyperlipidemia Marijuana use Recommendation: Continue present course of treatment including bronchodilators Continue prednisone Patient to be considered for discharge planning/placement in subacute rehab at [facility]. Will clear for discharge once he has a bed available at [facility]. Prednisone to be tapered on outpatient basis over 2 weeks. Time with Patient: Less than 30
[2023-12-13 16:22] LABS: Glucose,Whole Blood 135 mg/dL (70-110)
[2023-12-13 19:58] LABS: Glucose,Whole Blood 222 mg/dL (70-110)
[2023-12-14] MEDS ORDERED: LORazepam 2 MG/ML INJ IV PRN (00:36)
[2023-12-14] MEDS: LORazepam 2 MG/ML INJ IV PRN (01:19)
[2023-12-14 02:26] LABS: Glucose,Whole Blood 85 mg/dL (70-110)
--- NOTE | 2023-12-14 02:33 | P.PN ---
Subjective Progress Note Date: 12/12/23 This is a pleasant 63 years old male with past medical history of A-fib, coronary artery disease, COPD, DVT, GERD, hyperlipidemia, osteoarthritis, hypertension, sleep apnea Presents because of worsening shortness of breath and alcohol withdrawal symptoms Patient also complaining from cough with little phlegm Chest pain with coughing Also has been complaining from diarrhea over the last 2 days stated about 10 times per day, patient looks dehydrated He has history of coronary artery disease s/p 3 stents, his operating room surgical technologist Dr. Magaña. He was taking aspirin 81 mg as he states He is complaining from bilateral leg swelling. On admission patient was tachypneic and hypoxic and he was placed on BiPAP Blood pressure was 94/64 which is hypertensive for him, he was tachycardic with heart rate 156-165, he is known case of A-fib and EKG showing A-fib with RVR of a rate of 147, troponin is negative. He has mild leukocytosis 13.6, hemoglobin 12.9, sodium 120, liver enzymes mildly elevated Lactic acid 5.3 and 2.5 Chest x-ray is negative for acute process, showed COPD changes He is currently on CIWA, Cardizem drip and given normal saline boluses. Patient was admitted with pulmonary and cardiology consult 12/07/23 Patient breathing is improving and currently at home he is on 3 L/min of oxygen with good oxygen saturation.5 Nicotine patch added He still has tremor undergoing alcohol withdrawal, no delirium but he is on CIWA Heart rate is better controlled and blood pressure improved. Cardizem 30 mg 3 times daily added by operating room surgical technologist Sodium 124 and 122, nephrology following closely. Normal saline 75 mL/h was discontinued today He remains on normal saline, IV Solu-Medrol, Zithromax and home dose of aspirin 81 mg 12/08/23 Patient overall is improving His dyspnea is better His vitals are all better Except for mild tachycardia but is still improving Ms. Meeks and alcohol withdrawal symptoms Appetite is improving Had normal bowel movement getting normal saline 75 mL/h, sodium improving slowly and gradually went 0.5 and 1.6 Mild leukocytosis and anemia stable Remains on IV Solu-Medrol and Zithromax 12/09/2023 Patient is currently sitting in the bed. Awake alert and oriented. Seems to be weak and lethargic. Currently requiring 3 L oxygen via nasal cannula. Patient is off BiPAP. Still having shortness of breath and exertional dyspnea. Currently on IV hydration with normal saline at 75 cc/h. Otherwise patient is being continued on DuoNebs, IV Solu-Medrol, Pulmicort and Perforomist. Patient is also on CIWA protocol. Blood cultures showed no growth. Laboratory data showed WBC 9.1 hemoglobin 10.7 and platelets 282, sodium 127 potassium 2.9 chloride 94 bicarb is 31 BUN 7 and creatinine 0.29 and blood sugar is 120. Calcium 8.3. Pulmonary and nephrology is on board. 12/10/2023 Patient is more awake and oriented today. Able to sit in the chair. Tolerating oral diet. On oxygen via nasal cannula at 3 L baseline. Patient did utilize BiPAP overnight. Still having bilateral expiratory wheezing. Breath sounds slightly improved compared to yesterday. Patient has been afebrile. Laboratory data showed WBC 12.2 hemoglobin 10.8 and platelets 245 sodium 129 potassium 3.4 chloride 90 bicarb is 39 BUN 12 and creatinine 0.35 blood sugar 137 and calcium 8.3. Patient is being continued on IV Solu-Medrol, DuoNebs, Pulmicort and Perforomist. Short-acting Cardizem changed to Cardizem CD. Patient is not on anticoagulation due to prior history of GI bleed. Patient completed antibiotic course for 3 days. 12/11/2023 Patient is currently sitting in a chair. Awake alert and oriented. Requiring oxygen 3 L via nasal cannula at baseline. Able to tolerate oral diet. Breathing status is much improved. Patient remains on alcohol withdrawal protocol. Chest x-ray today showed no acute process Patient is being continued on IV Solu-Medrol, DuoNebs and Pulmicort/Perforomist Sodium level dropped down to 123. IV fluids on hold. Leukocytosis WBC went up to 15.7 today. Hemoglobin 10.7 and platelets 234 sodium 123 potassium 3.0 chloride 86 bicarb is 36 BUN 39 creatinine 0.33. 12/12/2023 Patient is currently sitting in the chair. Awake alert and oriented. Able to tolerate oral diet. Requiring oxygen 3 L via nasal cannula. Patient states that she is still anxious and requesting IV Ativan. Started on Librium and limited IV Ativan use. Patient is being continued on IV Solu-Medrol, Pulmicort and Perforomist along with DuoNebs. Laboratory data showed WBC 14.4 hemoglobin 11.1 and platelets 239 sodium 126 potassium 3.6 chloride 83 bicarb is 38 BUN 15 creatinine 0.15 other laboratory data reviewed. Current medications reviewed. Objective - Vital Signs Vital signs: Vital Signs Temp 97.7 F 12/12/23 19:39 Pulse 94 12/12/23 20:50 Resp 18 12/12/23 19:39 BP 113/80 12/12/23 19:39 Pulse Ox 98 12/12/23 19:39 FiO2 40 12/11/23 00:31 Intake & Output 12/12/23 12/12/23 12/13/23 06:59 18:59 06:59 Intake Total 480 Output Total 1999 1603 Balance -1999 Weight 54.1 kg 54.1 kg Intake: Oral 480 Output: Urine 1999 160 Other: Voiding Method External Catheter External Catheter External Catheter # Bowel Movements 2 - Exam - Exam -GENERAL: The patient is alert and oriented x3, not in any acute distress. Generally weak, thin built HEENT: Pupils are round and equally reacting to light. EOMI. No scleral icterus. No conjunctival pallor. Normocephalic, atraumatic. No pharyngeal erythema. No thyromegaly. CARDIOVASCULAR: S1 and S2 present. No murmurs, rubs, or gallops. -PULMONARY: Bilateral air entry is much improved. Mild expiratory wheeze. No rhonchi or crackles. Nonlabored breathing. ABDOMEN: Soft, nontender, nondistended, normoactive bowel sounds. No palpable organomegaly. MUSCULOSKELETAL: No joint swelling or deformity. EXTREMITIES: No cyanosis, clubbing, or pedal edema. NEUROLOGICAL: Gross neurological examination did not reveal any focal deficits. SKIN: No rashes. no petechiae. - Labs CBC & Chem 7: 12/13/23 07:56 12/13/23 07:56 Labs: Abnormal Lab Results - Last 24 Hours (Table) 12/11/23 12/12/23 12/12/23 Range/Units 21:34 02:03 05:59 WBC (3.8-10.6) k/uL RBC (4.30-5.90) m/uL Hgb (13.0-17.5) gm/dL Hct (39.0-53.0) % RDW (11.5-15.5) % Neutrophils # (1.3-7.7) k/uL Lymphocytes # (1.0-4.8) k/uL Sodium 124 L (137-145) mmol/L Chloride (98-107) mmol/L Carbon Dioxide (22-30) mmol/L Creatinine (0.66-1.25) mg/dL POC Glucose (mg/dL) 112 H 112 H (70-110) mg/dL ALT (4-49) U/L Total Protein (6.3-8.2) g/dL Albumin (3.5-5.0) g/dL 12/12/23 12/12/23 12/12/23 Range/Units 07:49 08:57 10:39 WBC 14.4 H (3.8-10.6) k/uL RBC 3.57 L (4.30-5.90) m/uL Hgb 11.1 L (13.0-17.5) gm/dL Hct 33.8 L (39.0-53.0) % RDW 15.7 H (11.5-15.5) % Neutrophils # 12.7 H (1.3-7.7) k/uL Lymphocytes # 0.3 L (1.0-4.8) k/uL Sodium 126 L (137-145) mmol/L Chloride 83 L (98-107) mmol/L Carbon Dioxide 38 H (22-30) mmol/L Creatinine 0.33 L (0.66-1.25) mg/dL POC Glucose (mg/dL) (70-110) mg/dL ALT 50 H (4-49) U/L Total Protein 5.7 L (6.3-8.2) g/dL Albumin 3.4 L (3.5-5.0) g/dL 12/12/23 12/12/23 12/12/23 Range/Units 11:44 17:38 20:02 WBC (3.8-10.6) k/uL RBC (4.30-5.90) m/uL Hgb (13.0-17.5) gm/dL Hct (39.0-53.0) % RDW (11.5-15.5) % Neutrophils # (1.3-7.7) k/uL Lymphocytes # (1.0-4.8) k/uL Sodium (137-145) mmol/L Chloride (98-107) mmol/L Carbon Dioxide (22-30) mmol/L Creatinine (0.66-1.25) mg/dL POC Glucose (mg/dL) 134 H 252 H 220 H (70-110) mg/dL ALT (4-49) U/L Total Protein (6.3-8.2) g/dL Albumin (3.5-5.0) g/dL Microbiology - Last 24 Hours (Table) 12/06/23 14:10 Blood Culture - Final Blood 12/06/23 14:26 Blood Culture - Final Blood Assessment and Plan Assessment: Acute COPD exacerbation Acute on chronic hypoxic respiratory failure secondary to COPD exacerbation. Patient was requiring BiPAP. Currently transition to nasal cannula oxygen at 3 L now. Chronic hypoxic respiratory failure on home oxygen 3 L via nasal cannula. Obstructive sleep apnea Alcohol use disorder at risk of alcohol withdrawal Paroxysmal A-fib and RVR. Currently on sinus rhythm. Continue with Cardizem CD. Not on anticoagulation due to prior history of GI bleed. Coronary arteries with history of stent placement Hypovolemic hyponatremia. Possible component of SIADH Hypotensive, present on admission Dehydration secondary to above Diarrhea x 2 days prior to hospitalization. Ruled out C. difficile Elevated lactic acid, improvement Moderate calorie protein malnutrition Nicotine dependence Marijuana use disorder Plan: Continue with IV steroids and DuoNebs. Continue with CIWA and thiamine Patient is currently on 3 L oxygen via nasal cannula. IV fluids on hold due to decrease in sodium level to 128 today. Encourage oral intake Pulmonary and nephrology is on board. Cardiology is on board. Short-acting Cardizem changed to Cardizem CD. Not on anticoagulation due to prior history of GI bleed. Labs and medication were reviewed.. Monitor labs and vitals. DVT and GI prophylaxis. DVT prophylaxis: Subcutaneous heparin GI Prophylaxis: Ppi Prognosis is guarded Time with Patient: Greater than 30
--- NOTE | 2023-12-14 02:35 | P.PN ---
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 He was taking aspirin 81 mg as he states He is complaining from bilateral leg swelling. On admission patient was tachypneic and hypoxic and he was placed on BiPAP Blood pressure was 94/64 which is hypertensive for him, he was tachycardic with heart rate 156-165, he is known case of A-fib and EKG showing A-fib with RVR of a rate of 147, troponin is negative. He has mild leukocytosis 13.6, hemoglobin 12.9, sodium 120, liver enzymes mildly elevated Lactic acid 5.3 and 2.5 Chest x-ray is negative for acute process, showed COPD changes He is currently on CIWA, Cardizem drip and given normal saline boluses. Patient was admitted with pulmonary and cardiology consult 12/07/23 Patient breathing is improving and currently at home he is on 3 L/min of oxygen with good oxygen saturation.5 Nicotine patch added He still has tremor undergoing alcohol withdrawal, no delirium but he is on CIWA Heart rate is better controlled and blood pressure improved. Cardizem 30 mg 3 times daily added by photocopying equipment mechanic Sodium 124 and 122, nephrology following closely. Normal saline 75 mL/h was discontinued today He remains on normal saline, IV Solu-Medrol, Zithromax and home dose of aspirin 81 mg 12/08/23 Patient overall is improving His dyspnea is better His vitals are all better Except for mild tachycardia but is still improving Ms. Meeks and alcohol withdrawal symptoms Appetite is improving Had normal bowel movement getting normal saline 75 mL/h, sodium improving slowly and gradually went 0.5 and 1.6 Mild leukocytosis and anemia stable Remains on IV Solu-Medrol and Zithromax 12/09/2023 Patient is currently sitting in the bed. Awake alert and oriented. Seems to be weak and lethargic. Currently requiring 3 L oxygen via nasal cannula. Patient is off BiPAP. Still having shortness of breath and exertional dyspnea. Currently on IV hydration with normal saline at 75 cc/h. Otherwise patient is being continued on DuoNebs, IV Solu-Medrol, Pulmicort and Perforomist. Patient is also on CIWA protocol. Blood cultures showed no growth. Laboratory data showed WBC 9.1 hemoglobin 10.7 and platelets 282, sodium 127 potassium 2.9 chloride 94 bicarb is 31 BUN 7 and creatinine 0.29 and blood sugar is 120. Calcium 8.3. Pulmonary and nephrology is on board. 12/10/2023 Patient is more awake and oriented today. Able to sit in the chair. Tolerating oral diet. On oxygen via nasal cannula at 3 L baseline. Patient did utilize BiPAP overnight. Still having bilateral expiratory wheezing. Breath sounds slightly improved compared to yesterday. Patient has been afebrile. Laboratory data showed WBC 12.2 hemoglobin 10.8 and platelets 245 sodium 129 potassium 3.4 chloride 90 bicarb is 39 BUN 12 and creatinine 0.35 blood sugar 137 and calcium 8.3. Patient is being continued on IV Solu-Medrol, DuoNebs, Pulmicort and Perforomist. Short-acting Cardizem changed to Cardizem CD. Patient is not on anticoagulation due to prior history of GI bleed. Patient completed antibiotic course for 3 days. 12/11/2023 Patient is currently sitting in a chair. Awake alert and oriented. Requiring oxygen 3 L via nasal cannula at baseline. Able to tolerate oral diet. Breathing status is much improved. Patient remains on alcohol withdrawal protocol. Chest x-ray today showed no acute process Patient is being continued on IV Solu-Medrol, DuoNebs and Pulmicort/Perforomist Sodium level dropped down to 123. IV fluids on hold. Leukocytosis WBC went up to 15.7 today. Hemoglobin 10.7 and platelets 234 sodium 123 potassium 3.0 chloride 86 bicarb is 36 BUN 39 creatinine 0.33. 12/12/2023 Patient is currently sitting in the chair. Awake alert and oriented. Able to tolerate oral diet. Requiring oxygen 3 L via nasal cannula. Patient states that she is still anxious and requesting IV Ativan. Started on Librium and limited IV Ativan use. Patient is being continued on IV Solu-Medrol, Pulmicort and Perforomist along with DuoNebs. Laboratory data showed WBC 14.4 hemoglobin 11.1 and platelets 239 sodium 126 potassium 3.6 chloride 83 bicarb is 38 BUN 15 creatinine 0.15 other laboratory data reviewed. 12/13/2023 Patient is awake alert and orient x 3. Requiring 3 L oxygen via nasal cannula as per home regimen. No complaints of chest pain or worsening shortness of breath. Patient is being continued on Librium and p.o. Ativan as needed. Otherwise breathing status is much improved. Wheezing is also much improved. IV steroids will be changed to prednisone daily tomorrow. No complaints of chest pain or shortness of breath. No cough or sputum production. Laboratory test showed sodium level improved to 128 today. Potassium 3.0 which was replaced. WBC count normalized. Hemoglobin 12.1. BUN 8 and creatinine 0.4. Blood sugar is 116.. Current medications reviewed. Objective - Vital Signs Vital signs: Vital Signs Temp 97.7 F 12/13/23 09:22 Pulse 86 12/13/23 22:12 Resp 18 12/13/23 22:12 BP 152/80 12/13/23 16:27 Pulse Ox 98 12/13/23 16:27 FiO2 40 12/11/23 00:31 Intake & Output 12/13/23 12/13/23 12/14/23 06:59 18:59 06:59 Intake Total 358 Output Total 2300 1400 Balance -2300 -1042 Weight 52.3 kg Intake: Oral 358 Output: Urine 2300 1400 Other: Voiding Method External Catheter External Catheter # Bowel Movements 2 - Exam - Exam -GENERAL: The patient is alert and oriented x3, not in any acute distress. Generally weak, thin built HEENT: Pupils are round and equally reacting to light. EOMI. No scleral icterus. No conjunctival pallor. Normocephalic, atraumatic. No pharyngeal erythema. No thyromegaly. CARDIOVASCULAR: S1 and S2 present. No murmurs, rubs, or gallops. -PULMONARY: Bilateral air entry is much improved. Mild expiratory wheeze. No rhonchi or crackles. Nonlabored breathing. ABDOMEN: Soft, nontender, nondistended, normoactive bowel sounds. No palpable organomegaly. MUSCULOSKELETAL: No joint swelling or deformity. EXTREMITIES: No cyanosis, clubbing, or pedal edema. NEUROLOGICAL: Gross neurological examination did not reveal any focal deficits. SKIN: No rashes. no petechiae. - Labs CBC & Chem 7: 12/13/23 07:56 12/13/23 07:56 Labs: Abnormal Lab Results - Last 24 Hours (Table) 12/13/23 12/13/23 12/13/23 Range/Units 02:04 06:21 07:56 RBC 3.95 L (4.30-5.90) m/uL Hgb 12.1 L (13.0-17.5) gm/dL Hct 38.0 L (39.0-53.0) % Neutrophils # 9.6 H (1.3-7.7) k/uL Lymphocytes # 0.2 L (1.0-4.8) k/uL Sodium (137-145) mmol/L Potassium (3.5-5.1) mmol/L Chloride (98-107) mmol/L Carbon Dioxide (22-30) mmol/L Creatinine (0.66-1.25) mg/dL Glucose (74-99) mg/dL POC Glucose (mg/dL) 167 H 177 H (70-110) mg/dL 12/13/23 12/13/23 12/13/23 Range/Units 07:56 11:30 16:20 RBC (4.30-5.90) m/uL Hgb (13.0-17.5) gm/dL Hct (39.0-53.0) % Neutrophils # (1.3-7.7) k/uL Lymphocytes # (1.0-4.8) k/uL Sodium 128 L (137-145) mmol/L Potassium 3.0 L (3.5-5.1) mmol/L Chloride 85 L (98-107) mmol/L Carbon Dioxide 35 H (22-30) mmol/L Creatinine 0.40 L (0.66-1.25) mg/dL Glucose 116 H (74-99) mg/dL POC Glucose (mg/dL) 134 H 135 H (70-110) mg/dL 12/13/23 Range/Units 19:56 RBC (4.30-5.90) m/uL Hgb (13.0-17.5) gm/dL Hct (39.0-53.0) % Neutrophils # (1.3-7.7) k/uL Lymphocytes # (1.0-4.8) k/uL Sodium (137-145) mmol/L Potassium (3.5-5.1) mmol/L Chloride (98-107) mmol/L Carbon Dioxide (22-30) mmol/L Creatinine (0.66-1.25) mg/dL Glucose (74-99) mg/dL POC Glucose (mg/dL) 222 H (70-110) mg/dL Assessment and Plan Assessment: Acute COPD exacerbation Acute on chronic hypoxic respiratory failure secondary to COPD exacerbation. Patient was requiring BiPAP. Currently transition to nasal cannula oxygen at 3 L now. Chronic hypoxic respiratory failure on home oxygen 3 L via nasal cannula. Obstructive sleep apnea Alcohol use disorder at risk of alcohol withdrawal Paroxysmal A-fib and RVR. Currently on sinus rhythm. Continue with Cardizem CD. Not on anticoagulation due to prior history of GI bleed. Coronary arteries with history of stent placement Hypovolemic hyponatremia. Possible component of SIADH Hypotensive, present on admission Dehydration secondary to above Diarrhea x 2 days prior to hospitalization. Ruled out C. difficile Elevated lactic acid, improvement Moderate calorie protein malnutrition Nicotine dependence Marijuana use disorder Plan: Continue with IV DuoNebs, Pulmicort and Perforomist. IV steroids changed to prednisone 40 mg daily today.. Continue with CIWA and thiamine. Patient is on Librium. Requiring less Ativan doses. Patient is currently on 3 L oxygen via nasal cannula. IV fluids on hold due to decrease in sodium level. Follow-up sodium level tomorrow.. Encourage oral intake Pulmonary and nephrology is on board. Cardiology is on board. Short-acting Cardizem changed to Cardizem CD. Not on anticoagulation due to prior history of GI bleed. Labs and medication were reviewed.. Monitor labs and vitals. DVT and GI prophylaxis. DVT prophylaxis: Subcutaneous heparin GI Prophylaxis: Ppi Prognosis is guarded Current with PT OT Anticipated discharge to rehab in the next 24 hours. Time with Patient: Greater than 30
[2023-12-14 06:07] LABS: Glucose,Whole Blood 98 mg/dL (70-110)
[2023-12-14] MEDS: predniSONE 20 MG TAB PO SCH (08:20)
[2023-12-14 11:32] LABS: Glucose,Whole Blood 168 mg/dL (70-110)
[2023-12-14 11:58] LABS: Basophils % (A) 0 %; Eosinophils # (A) 0.1 k/uL (0-0.7); Eosinophils % (A) 1 %; HGB 11.6 gm/dL (13.0-17.5); Hypochromasia Slight; Lymphocytes # (A) 0.4 k/uL (1.0-4.8); Lymphocytes % (A) 3 %; MCHC 32.3 g/dL (31.0-37.0); MCV 96.2 fL (80.0-100.0); Monocytes # (A) 1.1 k/uL (0-1.0); Monocytes % (A) 8 %; Neutrophils # (A) 11.9 k/uL (1.3-7.7); Neutrophils % (A) 87 %; Platelet Count 287 k/uL (150-450); RBC 3.74 m/uL (4.30-5.90); RDW 15.4 % (11.5-15.5); WBC 13.7 k/uL (3.8-10.6)
[2023-12-14] MEDS: ALPRAZolam 0.5 MG TAB PO PRN (12:19)
[2023-12-14 12:20] LABS: African American GFR (CKD) >90 (>60 ml/min/1.73 sqM); Anion Gap -3 mmol/L; Blood Urea Nitrogen 19 mg/dL (9-20); Calcium 9.2 mg/dL (8.4-10.2); Carbon Dioxide 40 mmol/L (22-30); Chloride 90 mmol/L (98-107); Glucose 129 mg/dL (74-99); Non-African American GFR(CKD) >90 (>60 ml/min/1.73 sqM); Potassium 3.5 mmol/L (3.5-5.1); Sodium 127 mmol/L (137-145)
--- NOTE | 2023-12-14 12:36 | P.PN ---
Subjective Progress Note Date: 12/14/23 Principal diagnosis: Acute on chronic hypoxic respiratory failure secondary to acute exacerbation of COPD This is a 63-year-old male patient with a known history of severe chronic obstructive pulmonary disease, chronic and ongoing tobacco dependence, daily alcohol use, marijuana use, coronary disease with previous stent placement, hypertension, hyperlipidemia, atrial fibrillation. He presented here to the emergency room earlier this morning with complaints of shortness of breath. He states he had stopped drinking alcohol but did admit to having 1 beer this morning. Chest x-ray shows evidence of hyperinflation compatible with COPD but no acute pulmonary process. White count 13.6. Hemoglobin 12.9. Platelets 375. Sodium 120. Potassium 3.9. Bicarb 30. BUN 3. Creatinine 0.32. Glucose 99. AST 64. ALT 52. Serum alcohol level 94. He was having increased work of breathing. He is seen in the emergency department. He is on BiPAP 10/5 and 40% FiO2. He is currently on a Cardizem drip at 5 mg/h. He does have lower extremity edema 1-2+. Sinus tachycardia on monitor. Progress note dated December 07 2023. Patient is a 63-year-old male with a known history of COPD, chronic and ongoing tobacco dependence, daily alcohol use, marijuana use, CAD with previous stent placement, hypertension, hyperlipidemia and atrial fibrillation with RVR. He presented to the ED yesterday with complaints of shortness of breath. He was seen today in room 379 and he was on 3 L of oxygen. Uses BiPAP machine at night with IPAP of 10 cmH2O, EPAP of 5 cm H2O and FiO2 40%. Alcohol withdrawal tremors were noted. Cardizem drip at 5mg/hr. He is not on any fluids. Pro-Bennie level 0.06. Continue lorazepam, Solu-Medrol, DuoNeb, budesonide and formoterol.Patient educated about quitting alcohol and smoking for good. Nicotine 21mg/24hr patch order has been placed. Zithromax has been discontinued. [facility] protocol with thiamine. Labs show WBC 5.2, Hb 7.3, platelets 296, Na 124,K 4.2, Cl 89, BUN 6, Creatinine 0.31, glucose 121. Total protein 5.6 and albumin 3.2. Prognosis is guarded. Will continue to follow and make recommendations. The patient is seen today December 08, 2023 in follow-up on the selective care unit. He is currently sitting up in bed. Awake and alert. He has been having symptoms of withdrawal. He is tremorous at times. Confused at times. Family is at the bedside. He is on the CIWA protocol. He is currently maintaining O2 saturations in the 90s on 3 L/min per nasal cannula. Alternating with BiPAP 10/5 and 40% FiO2. Normal saline at 75 MLS per hour. Cultures are pending. White count 10.8. Hemoglobin 11.7. Platelets 341. Sodium 126. Potassium 3.5. Bicarb 32. BUN 6. Creatinine 0.30. Glucose 139. He is continued on DuoNeb inhalations, Pulmicort and Perforomist inhalations, IV Solu-Medrol. NicoDerm patch in place. The patient is seen today December 09, 2023 in follow-up on the selective care unit. He is currently resting in bed. Awake and alert in no acute distress. He is maintaining O2 saturations in the 90s on 3 L/min per nasal cannula. He is currently off the BiPAP which is set at 10/5 and 40% FiO2. He has normal saline at 75 MLS per hour. He remains on DuoNeb inhalations, Pulmicort and Perforomist inhalations, Solu-Medrol. NicoDerm patch in place. He remains on the CIWA protocol. Heparin for DVT prophylaxis. Blood cultures revealed no growth. White count 9.5. Hemoglobin 10.7. Platelets 289. Sodium 127. Potassium 2.9. Bicarb 31. BUN 7. Creatinine 0.29. Glucose 120. The patient is seen today December 10, 2023 in follow-up on the selective care unit. He is currently sitting up in a chair at the bedside. Awake and alert in no acute distress. Maintaining O2 saturations in the 90s on 3 L/min per nasal cannula. Utilizing BiPAP at night 10/5 and 40% FiO2. He is still wheezing but sounding better today compared to yesterday. White count 12.2. Hemoglobin 10.8. Platelets 245. Sodium 129. Potassium 3.4. Bicarb 39. BUN 12. Creatinine 0.35. Glucose 137. He is continued on DuoNeb inhalations, Pulmicort and Perforomist inhalations, Solu-Medrol. NicoDerm patch in place. Remains on the [facility] protocol. The patient is seen today December 11, 2023 in follow-up on the selective care unit. He is awake and alert in no acute distress. Sitting up in a chair. Maintaining good O2 saturations in the 90s 3 L/min per nasal cannula. He is afebrile. Hemodynamically stable. He is continued on DuoNeb inhalations, Pulmicort and Perforomist inhalations, Solu-Medrol. NicoDerm patch in place. Remains on the [facility] protocol. Chest x-ray shows no acute pulmonary process. White count 15.7. Hemoglobin 10.7. Platelets 234. Sodium 124. Potassium 3.0. Bicarb 36. BUN 13. Creatinine 0.33. Glucose 120. The patient is seen today December 12, 2023 in follow-up on the selective care unit. He is currently sitting up in a chair. Awake and alert in no acute distress. Maintaining good O2 saturations in the 90s on 3 L/min per nasal cannula. Cultures revealed no growth. White count 14.4. Hemoglobin 11.1. Platelets 239. Sodium 126. Potassium 3.6. Bicarb 38. BUN 15. Creatinine 0.33. He remains on DuoNeb inhalations, Pulmicort and Perforomist inhalations, IV Solu-Medrol. Heparin for DVT prophylaxis. NicoDerm patch in place. Patient was seen today on 12/13/2023, remains on oxygen remains on bronchodilators, patient is making significant improvement clinically based on his clinical findings. Patient is receiving DuoNeb Pulmicort Perforomist and he is on prednisone 40 mg p.o. daily. Overall the patient is feeling better, breathing easier, and I believe the patient should be considered for discharge/placement. Last chest x-ray showed no evidence of pneumonia he does have severe COPD/emphysema. Patient was evaluated today on 12/14/2023, doing much better, breathing easier, continues to have some productive cough, no fever no chills, chest x-ray showed no evidence of pneumonia, patient is awaiting placement.WBC count is 13.7 hemoglobin 11.6 sodium is 127 bicarb is 40 electrolytes are otherwise unremarkable. Objective - Vital Signs Vital signs: Vital Signs Temp 97.7 F 12/14/23 08:18 Pulse 73 12/14/23 12:16 Resp 18 12/14/23 12:16 BP 111/64 12/14/23 12:16 Pulse Ox 96 12/14/23 12:16 FiO2 40 12/11/23 00:31 Intake & Output 12/13/23 12/14/23 12/14/23 18:59 06:59 18:59 Intake Total 358 702 Output Total 1400 450 300 Balance -1042 -450 402 Weight 53.5 kg Intake: Oral 358 702 Output: Urine 1400 450 300 Other: Voiding Method External Catheter External Catheter Bedside Commode # Bowel Movements 2 - Exam GENERAL EXAM: Reveals 63-year-old white male on 3 L nasal cannula, not in distress HEAD: Normocephalic. EYES: Normal reaction of pupils, equal size. NOSE: Clear with pink turbinates. THROAT: No erythema or exudates. NECK: No masses, no JVD. CHEST: No chest wall deformity. LUNGS: Equal air entry no crackles rhonchi or wheezes CVS: S1 and S2 normal with no audible murmur, regular rhythm. ABDOMEN: No hepatosplenomegaly, normal bowel sounds, no guarding or rigidity. SKIN: No rashes Psychiatric: Flat affect, normal mental status, depressed mood CENTRAL NERVOUS SYSTEM: No focal deficits, tone is normal in all 4 extremities. EXTREMITIES: There is no peripheral edema. No clubbing, no cyanosis. Peripheral pulses are intact. - Labs CBC & Chem 7: 12/14/23 11:10 12/14/23 11:10 Labs: Abnormal Lab Results - Last 24 Hours (Table) 12/13/23 12/13/23 12/13/23 Range/Units 07:56 16:20 19:56 WBC (3.8-10.6) k/uL RBC (4.30-5.90) m/uL Hgb (13.0-17.5) gm/dL Hct (39.0-53.0) % Neutrophils # (1.3-7.7) k/uL Lymphocytes # (1.0-4.8) k/uL Monocytes # (0-1.0) k/uL Sodium (137-145) mmol/L Chloride (98-107) mmol/L Carbon Dioxide 35 H (22-30) mmol/L Creatinine (0.66-1.25) mg/dL Glucose (74-99) mg/dL POC Glucose (mg/dL) 135 H 222 H (70-110) mg/dL 12/14/23 12/14/23 12/14/23 Range/Units 11:10 11:10 11:31 WBC 13.7 H (3.8-10.6) k/uL RBC 3.74 L (4.30-5.90) m/uL Hgb 11.6 L (13.0-17.5) gm/dL Hct 36.0 L (39.0-53.0) % Neutrophils # 11.9 H (1.3-7.7) k/uL Lymphocytes # 0.4 L (1.0-4.8) k/uL Monocytes # 1.1 H (0-1.0) k/uL Sodium 127 L (137-145) mmol/L Chloride 90 L (98-107) mmol/L Carbon Dioxide 40 H (22-30) mmol/L Creatinine 0.42 L (0.66-1.25) mg/dL Glucose 129 H (74-99) mg/dL POC Glucose (mg/dL) 168 H (70-110) mg/dL Assessment and Plan Assessment: impression: Acute on chronic hypoxemic respiratory failure secondary to an acute exacerbation of chronic obstructive pulmonary disease currently on 3 L nasal cannula and at times requiring BiPAP 10/5 and 40% FiO2 Oxygen dependent COPD, on 3 L nasal cannula when off BiPAP Obstructive sleep apnea utilizing home CPAP Chronic and ongoing tobacco dependence Daily alcohol use, alcohol level 94 on admission Hyponatremia suspect secondary to above Coronary artery disease with previous stent placements Peripheral vascular disease with femoral bypass History of atrial fibrillation Hypertension Hyperlipidemia Marijuana use Recommendation: Continue present course of treatment including bronchodilators Continue prednisone Patient to be considered for discharge planning/placement in subacute rehab at [facility]. Will clear for discharge once he has a bed available at [facility]. Time with Patient: Less than 30
[2023-12-14] MEDS: GABAPENTIN 300 MG CAP PO PRN (16:01)
[2023-12-14 16:26] LABS: Glucose,Whole Blood 129 mg/dL (70-110)
[2023-12-14] MEDS: TOLVAPTAN 15 MG TABLET PO ONE (16:49)
--- NOTE | 2023-12-14 17:29 | P.PN ---
Subjective Progress Note Date: 12/14/23 Interval History: This is a pleasant 63 years old male with past medical history of A-fib, coronary artery disease, COPD, DVT, GERD, hyperlipidemia, osteoarthritis, hypertension, sleep apnea Presents because of worsening shortness of breath and alcohol withdrawal symptoms Patient also complaining from cough with little phlegm Chest pain with coughing Also has been complaining from diarrhea over the last 2 days stated about 10 times per day, patient looks dehydrated He has history of coronary artery disease s/p 3 stents, his pressure testing technician Dr. Magaña. He was taking aspirin 81 mg as he states He is complaining from bilateral leg swelling. On admission patient was tachypneic and hypoxic and he was placed on BiPAP Blood pressure was 94/64 which is hypertensive for him, he was tachycardic with heart rate 156-165, he is known case of A-fib and EKG showing A-fib with RVR of a rate of 147, troponin is negative. He has mild leukocytosis 13.6, hemoglobin 12.9, sodium 120, liver enzymes mildly elevated Lactic acid 5.3 and 2.5 Chest x-ray is negative for acute process, showed COPD changes He is currently on CIWA, Cardizem drip and given normal saline boluses. Patient was admitted with pulmonary and cardiology consult 12/07/23 Patient breathing is improving and currently at home he is on 3 L/min of oxygen with good oxygen saturation.5 Nicotine patch added He still has tremor undergoing alcohol withdrawal, no delirium but he is on CIWA Heart rate is better controlled and blood pressure improved. Cardizem 30 mg 3 times daily added by pressure testing technician Sodium 124 and 122, nephrology following closely. Normal saline 75 mL/h was discontinued today He remains on normal saline, IV Solu-Medrol, Zithromax and home dose of aspirin 81 mg 12/08/23 Patient overall is improving His dyspnea is better His vitals are all better Except for mild tachycardia but is still improving Ms. Meeks and alcohol withdrawal symptoms Appetite is improving Had normal bowel movement getting normal saline 75 mL/h, sodium improving slowly and gradually went 0.5 and 1.6 Mild leukocytosis and anemia stable Remains on IV Solu-Medrol and Zithromax 12/09/2023 Patient is currently sitting in the bed. Awake alert and oriented. Seems to be weak and lethargic. Currently requiring 3 L oxygen via nasal cannula. Patient is off BiPAP. Still having shortness of breath and exertional dyspnea. Currently on IV hydration with normal saline at 75 cc/h. Otherwise patient is being continued on DuoNebs, IV Solu-Medrol, Pulmicort and Perforomist. Patient is also on CIWA protocol. Blood cultures showed no growth. Laboratory data showed WBC 9.1 hemoglobin 10.7 and platelets 282, sodium 127 potassium 2.9 chloride 94 bicarb is 31 BUN 7 and creatinine 0.29 and blood sugar is 120. Calcium 8.3. Pulmonary and nephrology is on board. 12/10/2023 Patient is more awake and oriented today. Able to sit in the chair. Tolerating oral diet. On oxygen via nasal cannula at 3 L baseline. Patient did utilize BiPAP overnight. Still having bilateral expiratory wheezing. Breath sounds slightly improved compared to yesterday. Patient has been afebrile. Laboratory data showed WBC 12.2 hemoglobin 10.8 and platelets 245 sodium 129 p otassium 3.4 chloride 90 bicarb is 39 BUN 12 and creatinine 0.35 blood sugar 137 and calcium 8.3. Patient is being continued on IV Solu-Medrol, DuoNebs, Pulmicort and Perforomist. Short-acting Cardizem changed to Cardizem CD. Patient is not on anticoagulation due to prior history of GI bleed. Patient completed antibiotic course for 3 days. 12/11/2023 Patient is currently sitting in a chair. Awake alert and oriented. Requiring oxygen 3 L via nasal cannula at baseline. Able to tolerate oral diet. Breathing status is much improved. Patient remains on alcohol withdrawal protocol. Chest x-ray today showed no acute process Patient is being continued on IV Solu-Medrol, DuoNebs and Pulmicort/Perforomist Sodium level dropped down to 123. IV fluids on hold. Leukocytosis WBC went up to 15.7 today. Hemoglobin 10.7 and platelets 234 sodium 123 potassium 3.0 chloride 86 bicarb is 36 BUN 39 creatinine 0.33. 12/12/2023 Patient is currently sitting in the chair. Awake alert and oriented. Able to tolerate oral diet. Requiring oxygen 3 L via nasal cannula. Patient states that she is still anxious and requesting IV Ativan. Started on Librium and limited IV Ativan use. Patient is being continued on IV Solu-Medrol, Pulmicort and Perforomist along with Kit. Laboratory data showed WBC 14.4 hemoglobin 11.1 and platelets 239 sodium 126 potassium 3.6 chloride 83 bicarb is 38 BUN 15 creatinine 0.15 other laboratory data reviewed. 12/13/2023 Patient is awake alert and orient x 3. Requiring 3 L oxygen via nasal cannula as per home regimen. No complaints of chest pain or worsening shortness of breath. Patient is being continued on Librium and p.o. Ativan as needed. Otherwise breathing status is much improved. Wheezing is also much improved. IV steroids will be changed to prednisone daily tomorrow. No complaints of chest pain or shortness of breath. No cough or sputum production. Laboratory test showed sodium level improved to 128 today. Potassium 3.0 which was replaced. WBC count normalized. Hemoglobin 12.1. BUN 8 and creatinine 0.4. Blood sugar is 116. 12/14/2023 Patient was seen and examined today. Alert oriented x 3. Remains on 3 L oxygen which is patient's baseline. No issues overnight. Discussed with RN at bedside. Withdrawal symptoms are improving. Symptoms most likely secondary to anxiety rather than withdrawal. Sodium is still low 127 today. Patient appears euvolemic. Assessment and plan: Acute COPD exacerbation Acute on chronic hypoxic respiratory failure secondary to COPD exacerbation. Patient was requiring BiPAP. Currently transition to nasal cannula oxygen at 3 L now. Chronic hypoxic respiratory failure on home oxygen 3 L via nasal cannula. Obstructive sleep apnea Alcohol use disorder at risk of alcohol withdrawal Paroxysmal A-fib and RVR. Currently on sinus rhythm. Continue with Cardizem CD. Not on anticoagulation due to prior history of GI bleed. Coronary arteries with history of stent placement Hypovolemic hyponatremia. Possible component of SIADH Hypotensive, present on admission Dehydration secondary to above Diarrhea x 2 days prior to hospitalization. Ruled out C. difficile Elevated lactic acid, improvement Moderate calorie protein malnutrition Nicotine dependence Marijuana use disorder Plan: Continue with DuoNevee Pulmicort and Roflumilast. IV steroids changed to prednisone 40 mg daily Continue with CIWA and thiamine. Patient is on Librium. Requiring less Ativan doses. Patient is currently on 3 L oxygen via nasal cannula. IV fluids on hold due to decrease in sodium level. Encourage oral intake. Monitor sodium. Pulmonary and nephrology is on board. Cardiology is on board. Short-acting Cardizem changed to Cardizem CD. Not on anticoagulation due to prior history of GI bleed. Labs and medication were reviewed.. Monitor labs and vitals. DVT prophylaxis: Subcutaneous heparin GI Prophylaxis: Ppi PT/OT consultedanticipate discharge to subacute rehab, awaiting placement. PHYSICAL EXAMINATION: GENERAL: The patient is A&O x3, NAD HEENT: EOMI, Sclerae anicteric, Moist Mucous membranes Neck: Supple, Non tender, No JVD CARDIOVASCULAR: S1, S2 present. No murmurs, rubs, or gallops. PULMONARY: Equal breath souds B/L, +wheezing, No crackles. ABDOMEN: Soft, nontender, nondistended, normoactive bowel sounds. No guarding or rebound tenderness. MUSCULOSKELETAL: No edema, No cyanosis. No clubbing. Normal ROM. Intact peripheral pulses. Skin; Warm. No rash. REVIEW OF SYSTEMS: CONSTITUTIONAL: No fever or chills. CARDIOVASCULAR: No chest pain, palpitations or syncope. PULMONARY: No shortness of breath, no cough, sore throat. GASTROINTESTINAL: No nausea, vomiting, diarrhea, abdominal pain. : No Dysuria, urgency, frequency. Extremities: No edema. NEUROLOGICAL: No headaches, no weakness, or numbness Dictation was produced using [employer] dictation software. please excuse any grammatical, word or spelling errors. Objective - Vital Signs Vital signs: Vital Signs Temp 97.7 F 12/14/23 08:18 Pulse 78 12/14/23 16:42 Resp 18 12/14/23 16:42 BP 97/65 12/14/23 16:42 Pulse Ox 97 12/14/23 16:42 FiO2 40 12/11/23 00:31 Intake & Output 12/13/23 12/14/23 12/14/23 18:59 06:59 18:59 Intake Total 358 1062 Output Total 1400 450 300 Balance -1042 -450 762 Weight 53.5 kg Intake: Oral 358 1062 Output: Urine 1400 450 300 Other: Voiding Method External Catheter External Catheter Bedside Commode # Bowel Movements 2 - Labs CBC & Chem 7: 12/14/23 11:10 12/14/23 11:10 Labs: Abnormal Lab Results - Last 24 Hours (Table) 12/13/23 12/14/23 12/14/23 Range/Units 19:56 11:10 11:10 WBC 13.7 H (3.8-10.6) k/uL RBC 3.74 L (4.30-5.90) m/uL Hgb 11.6 L (13.0-17.5) gm/dL Hct 36.0 L (39.0-53.0) % Neutrophils # 11.9 H (1.3-7.7) k/uL Lymphocytes # 0.4 L (1.0-4.8) k/uL Monocytes # 1.1 H (0-1.0) k/uL Sodium 127 L (137-145) mmol/L Chloride 90 L (98-107) mmol/L Carbon Dioxide 40 H (22-30) mmol/L Creatinine 0.42 L (0.66-1.25) mg/dL Glucose 129 H (74-99) mg/dL POC Glucose (mg/dL) 222 H (70-110) mg/dL 12/14/23 12/14/23 Range/Units 11:31 16:25 WBC (3.8-10.6) k/uL RBC (4.30-5.90) m/uL Hgb (13.0-17.5) gm/dL Hct (39.0-53.0) % Neutrophils # (1.3-7.7) k/uL Lymphocytes # (1.0-4.8) k/uL Monocytes # (0-1.0) k/uL Sodium (137-145) mmol/L Chloride (98-107) mmol/L Carbon Dioxide (22-30) mmol/L Creatinine (0.66-1.25) mg/dL Glucose (74-99) mg/dL POC Glucose (mg/dL) 168 H 129 H (70-110) mg/dL
--- NOTE | 2023-12-14 17:31 | P.PN ---
Subjective Patient is seen for follow-up for hyponatremia. History of significant EtOH abuse. Being treated for COPD exacerbation. no significant complaints today. sodium had dropped with restarting saline. Status post Lasix and improved to 128, it is 127 today. Objective - Vital Signs Vital signs: Vital Signs Temp 97.7 F 12/14/23 08:18 Pulse 78 12/14/23 16:42 Resp 18 12/14/23 16:42 BP 97/65 12/14/23 16:42 Pulse Ox 97 12/14/23 16:42 FiO2 40 12/11/23 00:31 Intake & Output 12/13/23 12/14/23 12/14/23 18:59 06:59 18:59 Intake Total 358 1062 Output Total 1400 450 300 Balance -1042 -450 762 Weight 53.5 kg Intake: Oral 358 1062 Output: Urine 1400 450 300 Other: Voiding Method External Catheter External Catheter Bedside Commode # Bowel Movements 2 - Exam Patient is awake, comfortable, in no acute distress. Examination of the heart S1 and S2 Examination of the lungs bilateral breath sounds are heard next nontender Examination of lower extremities shows no edema bilaterally HEALTH INFORMATION MANAGER exam grossly intact, no asterixis noted - Labs CBC & Chem 7: 12/14/23 11:10 12/14/23 11:10 Labs: Abnormal Lab Results - Last 24 Hours (Table) 12/13/23 12/14/23 12/14/23 Range/Units 19:56 11:10 11:10 WBC 13.7 H (3.8-10.6) k/uL RBC 3.74 L (4.30-5.90) m/uL Hgb 11.6 L (13.0-17.5) gm/dL Hct 36.0 L (39.0-53.0) % Neutrophils # 11.9 H (1.3-7.7) k/uL Lymphocytes # 0.4 L (1.0-4.8) k/uL Monocytes # 1.1 H (0-1.0) k/uL Sodium 127 L (137-145) mmol/L Chloride 90 L (98-107) mmol/L Carbon Dioxide 40 H (22-30) mmol/L Creatinine 0.42 L (0.66-1.25) mg/dL Glucose 129 H (74-99) mg/dL POC Glucose (mg/dL) 222 H (70-110) mg/dL 12/14/23 12/14/23 Range/Units 11:31 16:25 WBC (3.8-10.6) k/uL RBC (4.30-5.90) m/uL Hgb (13.0-17.5) gm/dL Hct (39.0-53.0) % Neutrophils # (1.3-7.7) k/uL Lymphocytes # (1.0-4.8) k/uL Monocytes # (0-1.0) k/uL Sodium (137-145) mmol/L Chloride (98-107) mmol/L Carbon Dioxide (22-30) mmol/L Creatinine (0.66-1.25) mg/dL Glucose (74-99) mg/dL POC Glucose (mg/dL) 168 H 129 H (70-110) mg/dL Assessment and Plan Assessment: 1. Hyponatremia secondary to significant alcohol intake and poor nutrition and decreased urinary solute. Improved post normal saline, initially. Serum sodium worsened after saline was restarted and improved again with IV Lasix. It is 127 today. Patient will be given 1 dose of Samsca. 2. A. fib with RVR status post Cardizem drip with improvement in heart rate 3. History of EtOH abuse 4. COPD with acute exacerbation Plan: Continue off of IV fluids. Samsca x 1. Patient is encouraged to increase oral intake particularly protein. Repeat labs in a.m.
[2023-12-14 20:40] LABS: Glucose,Whole Blood 210 mg/dL (70-110)
[2023-12-15 01:50] LABS: Glucose,Whole Blood 161 mg/dL (70-110)
[2023-12-15 06:18] LABS: Glucose,Whole Blood 99 mg/dL (70-110)
[2023-12-15 08:04] LABS: MCV 98.4 fL (80.0-100.0); RBC 3.86 m/uL (4.30-5.90); WBC 13.7 k/uL (3.8-10.6)
[2023-12-15 08:05] LABS: Basophils % (A) 0 %; Eosinophils # (A) 0.1 k/uL (0-0.7); Eosinophils % (A) 1 %; Hypochromasia Moderate; Lymphocytes # (A) 0.6 k/uL (1.0-4.8); Lymphocytes % (A) 4 %; MCHC 31.5 g/dL (31.0-37.0); Macrocytosis Slight; Mean Platelet Volume 7.2; Monocytes % (A) 7 %; Neutrophils # (A) 11.9 k/uL (1.3-7.7); Neutrophils % (A) 87 %; Platelet Count 285 k/uL (150-450); RDW 15.3 % (11.5-15.5)
[2023-12-15 08:12] LABS: African American GFR (CKD) >90 (>60 ml/min/1.73 sqM); Anion Gap 0 mmol/L; Blood Urea Nitrogen 14 mg/dL (9-20); Calcium 9.3 mg/dL (8.4-10.2); Chloride 93 mmol/L (98-107); Glucose 68 mg/dL (74-99); Non-African American GFR(CKD) >90 (>60 ml/min/1.73 sqM); Potassium 3.6 mmol/L (3.5-5.1); Sodium 133 mmol/L (137-145)
[2023-12-15 08:19] LABS: Carbon Dioxide 40 mmol/L (22-30)
--- NOTE | 2023-12-15 11:38 | P.PN ---
Subjective Progress Note Date: 12/15/23 Principal diagnosis: Acute on chronic hypoxic respiratory failure secondary to acute exacerbation of COPD This is a 63-year-old male patient with a known history of severe chronic obstructive pulmonary disease, chronic and ongoing tobacco dependence, daily alcohol use, marijuana use, coronary disease with previous stent placement, hypertension, hyperlipidemia, atrial fibrillation. He presented here to the emergency room earlier this morning with complaints of shortness of breath. He states he had stopped drinking alcohol but did admit to having 1 beer this morning. Chest x-ray shows evidence of hyperinflation compatible with COPD but no acute pulmonary process. White count 13.6. Hemoglobin 12.9. Platelets 375. Sodium 120. Potassium 3.9. Bicarb 30. BUN 3. Creatinine 0.32. Glucose 99. AST 64. ALT 52. Serum alcohol level 94. He was having increased work of breathing. He is seen in the emergency department. He is on BiPAP 10/5 and 40% FiO2. He is currently on a Cardizem drip at 5 mg/h. He does have lower extremity edema 1-2+. Sinus tachycardia on monitor. Progress note dated December 07 2023. Patient is a 63-year-old male with a known history of COPD, chronic and ongoing tobacco dependence, daily alcohol use, marijuana use, CAD with previous stent placement, hypertension, hyperlipidemia and atrial fibrillation with RVR. He presented to the ED yesterday with complaints of shortness of breath. He was seen today in room 379 and he was on 3 L of oxygen. Uses BiPAP machine at night with IPAP of 10 cmH2O, EPAP of 5 cm H2O and FiO2 40%. Alcohol withdrawal tremors were noted. Cardizem drip at 5mg/hr. He is not on any fluids. Pro-Bennie level 0.06. Continue lorazepam, Solu-Medrol, DuoNeb, budesonide and formoterol.Patient educated about quitting alcohol and smoking for good. Nicotine 21mg/24hr patch order has been placed. Zithromax has been discontinued. [facility] protocol with thiamine. Labs show WBC 5.2, Hb 7.3, platelets 296, Na 124,K 4.2, Cl 89, BUN 6, Creatinine 0.31, glucose 121. Total protein 5.6 and albumin 3.2. Prognosis is guarded. Will continue to follow and make recommendations. The patient is seen today December 08, 2023 in follow-up on the selective care unit. He is currently sitting up in bed. Awake and alert. He has been having symptoms of withdrawal. He is tremorous at times. Confused at times. Family is at the bedside. He is on the CIWA protocol. He is currently maintaining O2 saturations in the 90s on 3 L/min per nasal cannula. Alternating with BiPAP 10/5 and 40% FiO2. Normal saline at 75 MLS per hour. Cultures are pending. White count 10.8. Hemoglobin 11.7. Platelets 341. Sodium 126. Potassium 3.5. Bicarb 32. BUN 6. Creatinine 0.30. Glucose 139. He is continued on DuoNeb inhalations, Pulmicort and Perforomist inhalations, IV Solu-Medrol. NicoDerm patch in place. The patient is seen today December 09, 2023 in follow-up on the selective care unit. He is currently resting in bed. Awake and alert in no acute distress. He is maintaining O2 saturations in the 90s on 3 L/min per nasal cannula. He is currently off the BiPAP which is set at 10/5 and 40% FiO2. He has normal saline at 75 MLS per hour. He remains on DuoNeb inhalations, Pulmicort and Perforomist inhalations, Solu-Medrol. NicoDerm patch in place. He remains on the CIWA protocol. Heparin for DVT prophylaxis. Blood cultures revealed no growth. White count 9.5. Hemoglobin 10.7. Platelets 289. Sodium 127. Potassium 2.9. Bicarb 31. BUN 7. Creatinine 0.29. Glucose 120. The patient is seen today December 10, 2023 in follow-up on the selective care unit. He is currently sitting up in a chair at the bedside. Awake and alert in no acute distress. Maintaining O2 saturations in the 90s on 3 L/min per nasal cannula. Utilizing BiPAP at night 10/5 and 40% FiO2. He is still wheezing but sounding better today compared to yesterday. White count 12.2. Hemoglobin 10.8. Platelets 245. Sodium 129. Potassium 3.4. Bicarb 39. BUN 12. Creatinine 0.35. Glucose 137. He is continued on DuoNeb inhalations, Pulmicort and Perforomist inhalations, Solu-Medrol. NicoDerm patch in place. Remains on the CIOR protocol. The patient is seen today December 11, 2023 in follow-up on the selective care unit. He is awake and alert in no acute distress. Sitting up in a chair. Maintaining good O2 saturations in the 90s 3 L/min per nasal cannula. He is afebrile. Hemodynamically stable. He is continued on DuoNeb inhalations, Pulmicort and Perforomist inhalations, Solu-Medrol. NicoDerm patch in place. Remains on the [facility] protocol. Chest x-ray shows no acute pulmonary process. White count 15.7. Hemoglobin 10.7. Platelets 234. Sodium 124. Potassium 3.0. Bicarb 36. BUN 13. Creatinine 0.33. Glucose 120. The patient is seen today December 12, 2023 in follow-up on the selective care unit. He is currently sitting up in a chair. Awake and alert in no acute distress. Maintaining good O2 saturations in the 90s on 3 L/min per nasal cannula. Cultures revealed no growth. White count 14.4. Hemoglobin 11.1. Platelets 239. Sodium 126. Potassium 3.6. Bicarb 38. BUN 15. Creatinine 0.33. He remains on DuoNeb inhalations, Pulmicort and Perforomist inhalations, IV Solu-Medrol. Heparin for DVT prophylaxis. NicoDerm patch in place. Patient was seen today on 12/13/2023, remains on oxygen remains on bronchodilators, patient is making significant improvement clinically based on his clinical findings. Patient is receiving DuoNeb Pulmicort Perforomist and he is on prednisone 40 mg p.o. daily. Overall the patient is feeling better, breathing easier, and I believe the patient should be considered for discharge/placement. Last chest x-ray showed no evidence of pneumonia he does have severe COPD/emphysema. Patient was evaluated today on 12/14/2023, doing much better, breathing easier, continues to have some productive cough, no fever no chills, chest x-ray showed no evidence of pneumonia, patient is awaiting placement.WBC count is 13.7 hemoglobin 11.6 sodium is 127 bicarb is 40 electrolytes are otherwise unremarkable. Patient was seen today on 12/15/2023, patient is about the same, doing fairly well, he does have occasional cough and wheezing, but overall he seems to be doing much better compared to his baseline upon his initial presentation.Sodium is up to 133 WBC count is 13.7 renal profile is normal labs are basically unremarkable Objective - Vital Signs Vital signs: Vital Signs Temp 97.5 F L 12/15/23 04:00 Pulse 80 12/15/23 11:30 Resp 18 12/15/23 09:52 BP 91/64 12/15/23 08:44 Pulse Ox 96 12/15/23 08:44 FiO2 40 12/11/23 00:31 Intake & Output 12/14/23 12/15/23 12/15/23 18:59 06:59 18:59 Intake Total 1182 360 Output Total 575 2400 200 Balance 607 -2400 160 Weight 51.4 kg Intake: Oral 1182 360 Output: Urine 575 2400 200 Other: Voiding Method Bedside Commode Bedside Commode Bedside Commode - Exam GENERAL EXAM: Reveals 63-year-old white male on 3 L nasal cannula, not in distress HEAD: Normocephalic. EYES: Normal reaction of pupils, equal size. NOSE: Clear with pink turbinates. THROAT: No erythema or exudates. NECK: No masses, no JVD. CHEST: No chest wall deformity. LUNGS: Equal air entry no crackles rhonchi or wheezes CVS: S1 and S2 normal with no audible murmur, regular rhythm. ABDOMEN: No hepatosplenomegaly, normal bowel sounds, no guarding or rigidity. SKIN: No rashes Psychiatric: Flat affect, normal mental status, depressed mood CENTRAL NERVOUS SYSTEM: No focal deficits, tone is normal in all 4 extremities. EXTREMITIES: There is no peripheral edema. No clubbing, no cyanosis. Pe ripheral pulses are intact. - Labs CBC & Chem 7: 12/15/23 07:39 12/15/23 07:39 Labs: Abnormal Lab Results - Last 24 Hours (Table) 12/14/23 12/14/23 12/14/23 Range/Units 11:10 11:10 16:25 WBC 13.7 H (3.8-10.6) k/uL RBC 3.74 L (4.30-5.90) m/uL Hgb 11.6 L (13.0-17.5) gm/dL Hct 36.0 L (39.0-53.0) % Neutrophils # 11.9 H (1.3-7.7) k/uL Lymphocytes # 0.4 L (1.0-4.8) k/uL Monocytes # 1.1 H (0-1.0) k/uL Sodium 127 L (137-145) mmol/L Chloride 90 L (98-107) mmol/L Carbon Dioxide 40 H (22-30) mmol/L Creatinine 0.42 L (0.66-1.25) mg/dL Glucose 129 H (74-99) mg/dL POC Glucose (mg/dL) 129 H (70-110) mg/dL 12/14/23 12/15/23 12/15/23 Range/Units 20:36 01:42 07:39 WBC 13.7 H (3.8-10.6) k/uL RBC 3.86 L (4.30-5.90) m/uL Hgb 12.0 L (13.0-17.5) gm/dL Hct 38.0 L (39.0-53.0) % Neutrophils # 11.9 H (1.3-7.7) k/uL Lymphocytes # 0.6 L (1.0-4.8) k/uL Monocytes # (0-1.0) k/uL Sodium (137-145) mmol/L Chloride (98-107) mmol/L Carbon Dioxide (22-30) mmol/L Creatinine (0.66-1.25) mg/dL Glucose (74-99) mg/dL POC Glucose (mg/dL) 210 H 161 H (70-110) mg/dL 12/15/23 Range/Units 07:39 WBC (3.8-10.6) k/uL RBC (4.30-5.90) m/uL Hgb (13.0-17.5) gm/dL Hct (39.0-53.0) % Neutrophils # (1.3-7.7) k/uL Lymphocytes # (1.0-4.8) k/uL Monocytes # (0-1.0) k/uL Sodium 133 L (137-145) mmol/L Chloride 93 L (98-107) mmol/L Carbon Dioxide 40 H (22-30) mmol/L Creatinine 0.43 L (0.66-1.25) mg/dL Glucose 68 L (74-99) mg/dL POC Glucose (mg/dL) (70-110) mg/dL Assessment and Plan Assessment: impression: Acute on chronic hypoxemic respiratory failure secondary to an acute exacerbation of chronic obstructive pulmonary disease currently on 3 L nasal cannula and at times requiring BiPAP 10/5 and 40% FiO2 Oxygen dependent COPD, on 3 L nasal cannula when off BiPAP Obstructive sleep apnea utilizing home CPAP Chronic and ongoing tobacco dependence Daily alcohol use, alcohol level 94 on admission Hyponatremia suspect secondary to above Coronary artery disease with previous stent placements Peripheral vascular disease with femoral bypass History of atrial fibrillation Hypertension Hyperlipidemia Marijuana use Recommendation: Continue present course of treatment including bronchodilators Continue prednisone Placement in rehab facility is in progress Will clear for discharge once he has a bed available at [facility]. Time with Patient: Less than 30
[2023-12-15 11:42] LABS: Glucose,Whole Blood 141 mg/dL (70-110)
--- NOTE | 2023-12-15 12:44 | P.PN ---
Subjective Patient is seen for follow-up for hyponatremia. History of significant EtOH abuse. Being treated for COPD exacerbation. no significant complaints today. sodium had dropped with restarting saline. Status post Lasix and sodium improved to 128, subsequently dropped down to 127 and patient received Samsca yesterday. Sodium is 133 today. Objective - Vital Signs Vital signs: Vital Signs Temp 97.5 F L 12/15/23 04:00 Pulse 81 12/15/23 11:53 Resp 18 12/15/23 11:53 BP 92/53 12/15/23 11:53 Pulse Ox 97 12/15/23 11:53 FiO2 40 12/11/23 00:31 Intake & Output 12/14/23 12/15/23 12/15/23 18:59 06:59 18:59 Intake Total 1182 360 Output Total 575 2400 200 Balance 607 -2400 160 Weight 51.4 kg Intake: Oral 1182 360 Output: Urine 575 2400 200 Other: Voiding Method Bedside Commode Bedside Commode Bedside Commode - Exam Patient is awake, comfortable, in no acute distress. Examination of the heart S1 and S2 Examination of the lungs bilateral breath sounds are heard next nontender Examination of lower extremities shows no edema bilaterally DISPATCH ASSOCIATE exam grossly intact, - Labs CBC & Chem 7: 12/15/23 07:39 12/15/23 07:39 Labs: Abnormal Lab Results - Last 24 Hours (Table) 12/14/23 12/14/23 12/15/23 Range/Units 16:25 20:36 01:42 WBC (3.8-10.6) k/uL RBC (4.30-5.90) m/uL Hgb (13.0-17.5) gm/dL Hct (39.0-53.0) % Neutrophils # (1.3-7.7) k/uL Lymphocytes # (1.0-4.8) k/uL Sodium (137-145) mmol/L Chloride (98-107) mmol/L Carbon Dioxide (22-30) mmol/L Creatinine (0.66-1.25) mg/dL Glucose (74-99) mg/dL POC Glucose (mg/dL) 129 H 210 H 161 H (70-110) mg/dL 12/15/23 12/15/23 12/15/23 Range/Units 07:39 07:39 11:40 WBC 13.7 H (3.8-10.6) k/uL RBC 3.86 L (4.30-5.90) m/uL Hgb 12.0 L (13.0-17.5) gm/dL Hct 38.0 L (39.0-53.0) % Neutrophils # 11.9 H (1.3-7.7) k/uL Lymphocytes # 0.6 L (1.0-4.8) k/uL Sodium 133 L (137-145) mmol/L Chloride 93 L (98-107) mmol/L Carbon Dioxide 40 H (22-30) mmol/L Creatinine 0.43 L (0.66-1.25) mg/dL Glucose 68 L (74-99) mg/dL POC Glucose (mg/dL) 141 H (70-110) mg/dL Assessment and Plan Assessment: 1. Hyponatremia secondary to significant alcohol intake and poor nutrition and decreased urinary solute. Improved post normal saline, initially. Serum sodium worsened after saline was restarted and improved again with IV Lasix. It was 127 yesterday and patient received 1 dose of Samsca. Sodium is 133 today. 2. A. fib with RVR status post Cardizem drip with improvement in heart rate 3. History of EtOH abuse 4. COPD with acute exacerbation Plan: Continue off of IV fluids. Continue fluid restriction. Patient is encouraged to increase oral intake particularly protein. Repeat labs in a.m.
[2023-12-15] MEDS: polyethylene glycoL 3350 17 GM POWD.PACK PO SCH (12:49)
--- NOTE | 2023-12-15 14:31 | P.PN ---
Subjective Progress Note Date: 12/15/23 Interval History: This is a pleasant 63 years old male with past medical history of A-fib, coronary artery disease, COPD, DVT, GERD, hyperlipidemia, osteoarthritis, hypertension, sleep apnea Presents because of worsening shortness of breath and alcohol withdrawal symptoms Patient also complaining from cough with little phlegm Chest pain with coughing Also has been complaining from diarrhea over the last 2 days stated about 10 times per day, patient looks dehydrated He has history of coronary artery disease s/p 3 stents, his scale attendant Dr. Magaña. He was taking aspirin 81 mg as he states He is complaining from bilateral leg swelling. On admission patient was tachypneic and hypoxic and he was placed on BiPAP Blood pressure was 94/64 which is hypertensive for him, he was tachycardic with heart rate 156-165, he is known case of A-fib and EKG showing A-fib with RVR of a rate of 147, troponin is negative. He has mild leukocytosis 13.6, hemoglobin 12.9, sodium 120, liver enzymes mildly elevated Lactic acid 5.3 and 2.5 Chest x-ray is negative for acute process, showed COPD changes He is currently on CIWA, Cardizem drip and given normal saline boluses. Patient was admitted with pulmonary and cardiology consult 12/07/23 Patient breathing is improving and currently at home he is on 3 L/min of oxygen with good oxygen saturation.5 Nicotine patch added He still has tremor undergoing alcohol withdrawal, no delirium but he is on CIWA Heart rate is better controlled and blood pressure improved. Cardizem 30 mg 3 times daily added by scale attendant Sodium 124 and 122, nephrology following closely. Normal saline 75 mL/h was discontinued today He remains on normal saline, IV Solu-Medrol, Zithromax and home dose of aspirin 81 mg 12/08/23 Patient overall is improving His dyspnea is better His vitals are all better Except for mild tachycardia but is still improving Ms. Meeks and alcohol withdrawal symptoms Appetite is improving Had normal bowel movement getting normal saline 75 mL/h, sodium improving slowly and gradually went 0.5 and 1.6 Mild leukocytosis and anemia stable Remains on IV Solu-Medrol and Zithromax 12/09/2023 Patient is currently sitting in the bed. Awake alert and oriented. Seems to be weak and lethargic. Currently requiring 3 L oxygen via nasal cannula. Patient is off BiPAP. Still having shortness of breath and exertional dyspnea. Currently on IV hydration with normal saline at 75 cc/h. Otherwise patient is being continued on DuoNebs, IV Solu-Medrol, Pulmicort and Perforomist. Patient is also on CIWA protocol. Blood cultures showed no growth. Laboratory data showed WBC 9.1 hemoglobin 10.7 and platelets 282, sodium 127 potassium 2.9 chloride 94 bicarb is 31 BUN 7 and creatinine 0.29 and blood sugar is 120. Calcium 8.3. Pulmonary and nephrology is on board. 12/10/2023 Patient is more awake and oriented today. Able to sit in the chair. Tolerating oral diet. On oxygen via nasal cannula at 3 L baseline. Patient did utilize BiPAP overnight. Still having bilateral expiratory wheezing. Breath sounds slightly improved compared to yesterday. Patient has been afebrile. Laboratory data showed WBC 12.2 hemoglobin 10.8 and platelets 245 sodium 129 p otassium 3.4 chloride 90 bicarb is 39 BUN 12 and creatinine 0.35 blood sugar 137 and calcium 8.3. Patient is being continued on IV Solu-Medrol, DuoNebs, Pulmicort and Perforomist. Short-acting Cardizem changed to Cardizem CD. Patient is not on anticoagulation due to prior history of GI bleed. Patient completed antibiotic course for 3 days. 12/11/2023 Patient is currently sitting in a chair. Awake alert and oriented. Requiring oxygen 3 L via nasal cannula at baseline. Able to tolerate oral diet. Breathing status is much improved. Patient remains on alcohol withdrawal protocol. Chest x-ray today showed no acute process Patient is being continued on IV Solu-Medrol, DuoNebs and Pulmicort/Perforomist Sodium level dropped down to 123. IV fluids on hold. Leukocytosis WBC went up to 15.7 today. Hemoglobin 10.7 and platelets 234 sodium 123 potassium 3.0 chloride 86 bicarb is 36 BUN 39 creatinine 0.33. 12/12/2023 Patient is currently sitting in the chair. Awake alert and oriented. Able to tolerate oral diet. Requiring oxygen 3 L via nasal cannula. Patient states that she is still anxious and requesting IV Ativan. Started on Librium and limited IV Ativan use. Patient is being continued on IV Solu-Medrol, Pulmicort and Perforomist along with Kit. Laboratory data showed WBC 14.4 hemoglobin 11.1 and platelets 239 sodium 126 potassium 3.6 chloride 83 bicarb is 38 BUN 15 creatinine 0.15 other laboratory data reviewed. 12/13/2023 Patient is awake alert and orient x 3. Requiring 3 L oxygen via nasal cannula as per home regimen. No complaints of chest pain or worsening shortness of breath. Patient is being continued on Librium and p.o. Ativan as needed. Otherwise breathing status is much improved. Wheezing is also much improved. IV steroids will be changed to prednisone daily tomorrow. No complaints of chest pain or shortness of breath. No cough or sputum production. Laboratory test showed sodium level improved to 128 today. Potassium 3.0 which was replaced. WBC count normalized. Hemoglobin 12.1. BUN 8 and creatinine 0.4. Blood sugar is 116. 12/14/2023 Patient was seen and examined today. Alert oriented x 3. Remains on 3 L oxygen which is patient's baseline. No issues overnight. Discussed with RN at bedside. Withdrawal symptoms are improving. Symptoms most likely secondary to anxiety rather than withdrawal. Sodium is still low 127 today. Patient appears euvolemic. Nephrology following, patient received 1 dose of Samsca. 12/15/2023 Alert oriented x 3, remains on 3 L baseline oxygen. No issues overnight. Nephrology following patient sodium is 133 today after receiving tolvaptan yesterday. Nephrology recommended to continue fluid restriction, remains off IV fluids, monitor sodium. Pulmonary also following, recommended to continue curr ent treatment and prednisone, okay to discharge once placement available. Assessment and plan: Acute COPD exacerbation Acute on chronic hypoxic respiratory failure secondary to COPD exacerbation. Maxi sharpe was requiring BiPAP. Currently transition to nasal cannula oxygen at 3 L now. Chronic hypoxic respiratory failure on home oxygen 3 L via nasal cannula. Obstructive sleep apnea Alcohol use disorder at risk of alcohol withdrawal Paroxysmal A-fib and RVR. Currently on sinus rhythm. Continue with Cardizem CD. Not on anticoagulation due to prior history of GI bleed. Coronary arteries with history of stent placement Hypovolemic hyponatremia. Possible component of SIADH, received tolvaptan nephrology consulted., Hypotensive, present on admission Dehydration secondary to above Diarrhea x 2 days prior to hospitalization. Ruled out C. difficile Elevated lactic acid, improvement Moderate calorie protein malnutrition Nicotine dependence Marijuana use disorder Plan: Continue with DuoNebs, Pulmicort and Roflumilast. IV steroids changed to prednisone 40 mg daily Continue with CIWA and thiamine. Patient is on Librium. Requiring less Ativan doses. Patient is currently on 3 L oxygen via nasal cannula. Nephrology consulted for hyponatremia, received IV fluids initially, now holding, received tolvaptan 12/14/2023. Encourage oral intake. Monitor sodium. Pulmonary consulted and following Cardiology is on board. Short-acting Cardizem changed to Cardizem CD. Not on anticoagulation due to prior history of GI bleed. Labs and medication were reviewed.. Monitor labs and vitals. DVT prophylaxis: Subcutaneous heparin GI Prophylaxis: Ppi PT/OT consultedanticipate discharge to subacute rehab, awaiting placement. PHYSICAL EXAMINATION: GENERAL: The patient is A&O x3, NAD HEENT: EOMI, Sclerae anicteric, Moist Mucous membranes Neck: Supple, Non tender, No JVD CARDIOVASCULAR: S1, S2 present. No murmurs, rubs, or gallops. PULMONARY: Equal breath souds B/L, +wheezing, No crackles. ABDOMEN: Soft, nontender, nondistended, normoactive bowel sounds. No guarding or rebound tenderness. MUSCULOSKELETAL: No edema, No cyanosis. No clubbing. Normal ROM. Intact peripheral pulses. Skin; Warm. No rash. REVIEW OF SYSTEMS: CONSTITUTIONAL: No fever or chills. CARDIOVASCULAR: No chest pain, palpitations or syncope. PULMONARY: No shortness of breath, no cough, sore throat. GASTROINTESTINAL: No nausea, vomiting, diarrhea, abdominal pain. : No Dysuria, urgency, frequency. Extremities: No edema. NEUROLOGICAL: No headaches, no weakness, or numbness Dictation was produced using [employer] dictation software. please excuse any grammatical, word or spelling errors. Objective - Vital Signs Vital signs: Vital Signs Temp 97.5 F L 12/15/23 04:00 Pulse 81 12/15/23 13:57 Resp 18 12/15/23 13:57 BP 92/53 12/15/23 11:53 Pulse Ox 97 12/15/23 11:53 FiO2 40 12/11/23 00:31 Intake & Output 08/03/24 08/04/24 08/04/24 18:59 06:59 18:59 Intake Total 1182 720 Output Total 575 2400 350 Balance 607 -2400 370 Weight 51.4 kg Intake: Oral 1182 720 Output: Urine 575 2400 350 Other: Voiding Method Bedside Commode Bedside Commode Bedside Commode # Bowel Movements 1 - Labs CBC & Chem 7: 12/15/23 07:39 12/15/23 07:39 Labs: Abnormal Lab Results - Last 24 Hours (Table) 12/14/23 12/14/23 12/15/23 Range/Units 16:25 20:36 01:42 WBC (3.8-10.6) k/uL RBC (4.30-5.90) m/uL Hgb (13.0-17.5) gm/dL Hct (39.0-53.0) % Neutrophils # (1.3-7.7) k/uL Lymphocytes # (1.0-4.8) k/uL Sodium (137-145) mmol/L Chloride (98-107) mmol/L Carbon Dioxide (22-30) mmol/L Creatinine (0.66-1.25) mg/dL Glucose (74-99) mg/dL POC Glucose (mg/dL) 129 H 210 H 161 H (70-110) mg/dL 12/15/23 12/15/23 12/15/23 Range/Units 07:39 07:39 11:40 WBC 13.7 H (3.8-10.6) k/uL RBC 3.86 L (4.30-5.90) m/uL Hgb 12.0 L (13.0-17.5) gm/dL Hct 38.0 L (39.0-53.0) % Neutrophils # 11.9 H (1.3-7.7) k/uL Lymphocytes # 0.6 L (1.0-4.8) k/uL Sodium 133 L (137-145) mmol/L Chloride 93 L (98-107) mmol/L Carbon Dioxide 40 H (22-30) mmol/L Creatinine 0.43 L (0.66-1.25) mg/dL Glucose 68 L (74-99) mg/dL POC Glucose (mg/dL) 141 H (70-110) mg/dL
[2023-12-15 16:47] LABS: Glucose,Whole Blood 129 mg/dL (70-110)
[2023-12-15 20:00] LABS: Glucose,Whole Blood 213 mg/dL (70-110)
[2023-12-16 01:52] VITALS: TEMP 98.1
[2023-12-16] MEDS: LORazepam 2 MG/ML INJ IV PRN (04:02)
[2023-12-16 05:27] VITALS: BP 95/60; PULSE 75; RESP 18
[2023-12-16 06:19] LABS: Glucose,Whole Blood 107 mg/dL (70-110)
[2023-12-16] MEDS ORDERED: DILTIAZEM CD 120 MG CAP.ER.24H PO ONE (08:46)
[2023-12-16] MEDS ORDERED: ASPIRIN 81 MG ONE (08:46)
[2023-12-16] MEDS ORDERED: HEPARIN SODIUM,PORCINE 5,000 UNIT/ML 1 ML VIAL ONE ×2 (08:47→21:37)
[2023-12-16] MEDS ORDERED: FOLIC ACID 1 MG TAB ONE (08:47)
[2023-12-16] MEDS ORDERED: CHOLECALCIFEROL 25 MCG (1000 IU) TABLET ONE (08:47)
[2023-12-16] MEDS ORDERED: PANTOPRAZOLE 40 MG TABLET PO ONE (08:48)
[2023-12-16] MEDS ORDERED: MULTIVITAMINS, THERA 1 EACH TAB ONE (08:48)
[2023-12-16] MEDS ORDERED: METOPROLOL TARTRATE 25 MG TAB ONE ×2 (08:49→21:36)
[2023-12-16] MEDS ORDERED: THIAMINE 100 MG TAB ONE (08:49)
[2023-12-16] MEDS ORDERED: ISOSORBIDE MONONITRATE ER 30 MG TAB.ER.24H PO ONE (08:50)
[2023-12-16] MEDS ORDERED: NICOTINE 21MG/24HR PATCH TRANSDERM ONE (08:50)
[2023-12-16] MEDS ORDERED: polyethylene glycoL 3350 17 GM POWD.PACK ONE (08:50)
[2023-12-16] MEDS ORDERED: predniSONE 20 MG TAB ONE (08:51)
[2023-12-16] MEDS ORDERED: GABAPENTIN 300 MG CAP ONE ×2 (09:31→21:56)
[2023-12-16] MEDS ORDERED: ALPRAZolam 0.5 MG TAB ONE ×2 (09:32→21:56)
[2023-12-16 11:15] LABS: Glucose,Whole Blood 130 mg/dL (70-110)
[2023-12-16] MEDS ORDERED: LORazepam 2 MG/ML INJ ONE (11:57)
[2023-12-16] MEDS ORDERED: ONDANSETRON 4 MG/2 ML VIAL ONE (11:58)
[2023-12-16] MEDS ORDERED: IPRATROPIUM-ALBUTEROL 3 ML NEB ONE ×2 (15:02→19:38)
[2023-12-16 16:13] LABS: Glucose,Whole Blood 129 mg/dL (70-110)
[2023-12-16] MEDS ORDERED: BUDESONIDE 1 MG/2 ML NEBU INHALATION ONE (19:38)
[2023-12-16] MEDS ORDERED: FORMOTEROL FUMARATE 20 MCG/2 ML NEBU INHALATION ONE (19:38)
[2023-12-16 20:26] LABS: Glucose,Whole Blood 192 mg/dL (70-110)
[2023-12-16] MEDS ORDERED: ATORVASTATIN 80 MG TAB ONE (21:36)
[2023-12-16] MEDS ORDERED: INSULIN ASPART (NovoLOG) 100 UNIT/ML VIAL SQ ONE (21:37)
[2023-12-16] MEDS ORDERED: HYDROcodone/APAP 5-325MG 1 EACH TAB ONE (21:55)
[2023-12-17 06:18] LABS: Glucose,Whole Blood 76 mg/dL (70-110)
[2023-12-17] MEDS ORDERED: INSULIN ASPART (NovoLOG) 100 UNIT/ML VIAL SQ ONE ×3 (06:18→22:03)
[2023-12-17] MEDS ORDERED: FORMOTEROL FUMARATE 20 MCG/2 ML NEBU INHALATION ONE ×2 (08:00→20:24)
[2023-12-17] MEDS ORDERED: IPRATROPIUM-ALBUTEROL 3 ML NEB ONE ×2 (08:00→20:24)
[2023-12-17] MEDS ORDERED: BUDESONIDE 1 MG/2 ML NEBU INHALATION ONE ×2 (08:00→20:25)
[2023-12-17] MEDS ORDERED: DILTIAZEM CD 120 MG CAP.ER.24H PO ONE (08:50)
[2023-12-17] MEDS ORDERED: PANTOPRAZOLE 40 MG TABLET PO ONE (08:50)
[2023-12-17] MEDS ORDERED: METOPROLOL TARTRATE 25 MG TAB ONE ×2 (08:51→22:02)
[2023-12-17] MEDS ORDERED: MULTIVITAMINS, THERA 1 EACH TAB ONE (08:51)
[2023-12-17] MEDS ORDERED: ASPIRIN 81 MG ONE (08:51)
[2023-12-17] MEDS ORDERED: CHOLECALCIFEROL 25 MCG (1000 IU) TABLET ONE (08:51)
[2023-12-17] MEDS ORDERED: THIAMINE 100 MG TAB ONE (08:51)
[2023-12-17] MEDS ORDERED: FOLIC ACID 1 MG TAB ONE (08:52)
[2023-12-17] MEDS ORDERED: HEPARIN SODIUM,PORCINE 5,000 UNIT/ML 1 ML VIAL ONE ×2 (08:52→22:03)
[2023-12-17] MEDS ORDERED: polyethylene glycoL 3350 17 GM POWD.PACK ONE (08:52)
[2023-12-17] MEDS ORDERED: NICOTINE 21MG/24HR PATCH TRANSDERM ONE (08:52)
[2023-12-17] MEDS ORDERED: ISOSORBIDE MONONITRATE ER 30 MG TAB.ER.24H PO ONE (08:52)
[2023-12-17] MEDS ORDERED: predniSONE 20 MG TAB ONE (08:52)
[2023-12-17] MEDS ORDERED: ALPRAZolam 0.5 MG TAB ONE ×2 (08:53→22:02)
[2023-12-17] MEDS ORDERED: HYDROcodone/APAP 5-325MG 1 EACH TAB ONE ×2 (08:53→22:01)
[2023-12-17 11:31] LABS: Glucose,Whole Blood 116 mg/dL (70-110)
[2023-12-17 16:39] LABS: Glucose,Whole Blood 207 mg/dL (70-110)
[2023-12-17 20:18] LABS: Glucose,Whole Blood 227 mg/dL (70-110)
[2023-12-17] MEDS ORDERED: GABAPENTIN 300 MG CAP ONE (22:01)
[2023-12-17] MEDS ORDERED: ATORVASTATIN 80 MG TAB ONE (22:02)
[2023-12-18 06:00] LABS: Glucose,Whole Blood 83 mg/dL (70-110)
[2023-12-18] MEDS ORDERED: IPRATROPIUM-ALBUTEROL 3 ML NEB ONE (07:53)
[2023-12-18] MEDS ORDERED: FORMOTEROL FUMARATE 20 MCG/2 ML NEBU INHALATION ONE (07:53)
[2023-12-18] MEDS ORDERED: BUDESONIDE 1 MG/2 ML NEBU INHALATION ONE (07:53)
[2023-12-18] MEDS ORDERED: DILTIAZEM CD 120 MG CAP.ER.24H PO ONE (10:05)
[2023-12-18] MEDS ORDERED: HYDROcodone/APAP 5-325MG 1 EACH TAB ONE (10:05)
[2023-12-18] MEDS ORDERED: METOPROLOL TARTRATE 25 MG TAB ONE (10:06)
[2023-12-18] MEDS ORDERED: GABAPENTIN 300 MG CAP ONE (10:06)
[2023-12-18] MEDS ORDERED: ASPIRIN 81 MG ONE (10:06)
[2023-12-18] MEDS ORDERED: CHOLECALCIFEROL 25 MCG (1000 IU) TABLET ONE (10:06)
[2023-12-18] MEDS ORDERED: MULTIVITAMINS, THERA 1 EACH TAB ONE (10:06)
[2023-12-18] MEDS ORDERED: PANTOPRAZOLE 40 MG TABLET PO ONE (10:06)
[2023-12-18] MEDS ORDERED: ALPRAZolam 0.5 MG TAB ONE (10:06)
[2023-12-18] MEDS ORDERED: polyethylene glycoL 3350 17 GM POWD.PACK ONE (10:07)
[2023-12-18] MEDS ORDERED: ISOSORBIDE MONONITRATE ER 30 MG TAB.ER.24H PO ONE (10:07)
[2023-12-18] MEDS ORDERED: NICOTINE 21MG/24HR PATCH TRANSDERM ONE (10:07)
[2023-12-18] MEDS ORDERED: THIAMINE 100 MG TAB ONE (10:07)
[2023-12-18] MEDS ORDERED: ATORVASTATIN 80 MG TAB ONE (10:07)
[2023-12-18] MEDS ORDERED: FOLIC ACID 1 MG TAB ONE (10:07)
[2023-12-18] MEDS ORDERED: predniSONE 20 MG TAB ONE (10:08)
[2023-12-18] MEDS ORDERED: HEPARIN SODIUM,PORCINE 5,000 UNIT/ML 1 ML VIAL ONE (10:08)
[2024-01-08 11:32] LABS: Glucose 115 mg/dL (74-99); Potassium 3.8 mmol/L (3.5-5.1); Sodium 132 mmol/L (137-145)
[2024-01-08 11:33] LABS: African American GFR (CKD) >90 (>60 ml/min/1.73 sqM); Anion Gap 4 mmol/L; Blood Urea Nitrogen 14 mg/dL (9-20); Calcium 9.4 mg/dL (8.4-10.2); Carbon Dioxide 35 mmol/L (22-30); Chloride 93 mmol/L (98-107); Non-African American GFR(CKD) >90 (>60 ml/min/1.73 sqM)
[2024-01-08 11:34] LABS: Eosinophils % (A) 0 %; HCT 37.3 % (39.0-53.0); HGB 11.7 gm/dL (13.0-17.5); Lymphocytes % (A) 4 %; MCH 31.4 pg (25.0-35.0); MCHC 31.5 g/dL (31.0-37.0); MCV 99.6 fL (80.0-100.0); Monocytes % (A) 6 %; Neutrophils % (A) 90 %; Platelet Count 325 k/uL (150-450); RBC 3.75 m/uL (4.30-5.90); RDW 15.4 % (11.5-15.5); WBC 17.3 k/uL (3.8-10.6)
[2024-01-08 11:35] LABS: Basophils % (A) 0 %; Eosinophils # (A) 0.1 k/uL (0-0.7); Lymphocytes # (A) 0.7 k/uL (1.0-4.8); Neutrophils # (A) 15.5 k/uL (1.3-7.7)
== END 2023-12-18 12:05 | DRG 189 ==
LOC: EC 09:50 → 3SCARD 13:38
PROVIDERS: ADMIT Internal Medicine; ATTEND Internal Medicine
PROC: 5A09557 Assistance with Respiratory Ventilation, Greater than 96 Consecutive Hours, Continuous Positive Airway Pressure (ICD-10-PCS; principal; 2023-12-06)
DX: J96.21 Acute and chronic respiratory failure with hypoxia (principal); F10.139 Alcohol abuse with withdrawal, unspecified; E44.0 Moderate protein-calorie malnutrition; Z68.1 Body mass index [BMI] 19.9 or less, adult; E22.2 Syndrome of inappropriate secretion of antidiuretic hormone; J43.9 Emphysema, unspecified; I25.10 Atherosclerotic heart disease of native coronary artery without angina pectoris; Z95.5 Presence of coronary angioplasty implant and graft; Z60.2 Problems related to living alone; E78.5 Hyperlipidemia, unspecified; E86.0 Dehydration; I10 Essential (primary) hypertension; Y90.4 Blood alcohol level of 80-99 mg/100 ml; I73.9 Peripheral vascular disease, unspecified; I48.0 Paroxysmal atrial fibrillation; F41.9 Anxiety disorder, unspecified; D64.9 Anemia, unspecified; G47.33 Obstructive sleep apnea (adult) (pediatric); F17.210 Nicotine dependence, cigarettes, uncomplicated; Z99.81 Dependence on supplemental oxygen; Z79.899 Other long term (current) drug therapy; Z79.52 Long term (current) use of systemic steroids; Z79.82 Long term (current) use of aspirin; Z79.51 Long term (current) use of inhaled steroids; Z95.820 Peripheral vascular angioplasty status with implants and grafts
CPT/HCPCS: 36415; 71045; 80048; 80053; 80306; 80320; 81003; 82374; 82570; 83605; 83735; 83880; 83935; 84145; 84295; 84300; 84443; 84484; 85025; 85027; 85610; 85730; 87040; 93005; 94640; 94660; 94760; 96365; 96366; 96375; 96376; 99291

== ENCOUNTER → 2024-03-03 | Outpatient (CLI) | payer MEDICARE, OTHER ==
--- NOTE | 2024-03-03 18:45 | CT ---
EXAMINATION TYPE: CT chest wo con CT DLP: 216.50 mGycm, Automated exposure control for dose reduction was used. DATE OF EXAM: 03/03/2024 9:54 AM COMPARISON: 11/16/2023 CLINICAL INDICATION: Male, 63 years old with history of R91.1 pulmonary nodule; PHH, Hx pulmonary nod ule TECHNIQUE: Multiple axial images were obtained through the chest. Sagittal and coronal reformats were created for review. MIP was performed on a separate workstation. Contrast used: mL of (None if empty) Oral contrast used: (None if empty) FINDINGS: Lungs/Pleura: Moderate to severe emphysema changes throughout the lungs. Scarring along the right brian or fissure. No evidence of focal consolidation, pleural effusion or pneumothorax. Left upper lung nod ule measuring 9 x 6 mm is unchanged from prior.. This is new. Airway: The left lower lobe airways are better aerated on today's exam. Heart: Heart is within normal limits for size. Moderate to severe atherosclerosis of the arterial vas culature. Vasculature: No evidence of aortic aneurysm. Borderline ectasia of ascending thoracic aorta measuring up to 40 mm Mediastinum: No gross evidence of adenopathy. Musculoskeletal: Mild degenerative disc disease changes are present throughout the thoracolumbar spin e. Stable appearance of the compression deformity of the T12 vertebral body. Soft Tissues/lymph nodes: Unremarkable. Lower neck: No significant findings. Upper Abdomen: No significant findings. IMPRESSION: Stable pulmonary nodules and/or parenchymal scarring. No new or enlarging pulmonary nodules. Yearly l ow-dose lung cancer screening recommended Left lower lobe airways are better aerated on today's exam. Severe emphysema [facility], , 03/03/2024 6:43 PM
== END | disposition home or self-care (01) ==
LOC: RADCTMAIN 09:15
PROVIDERS: ATTEND Family Medicine
CPT/HCPCS: 71250

== ENCOUNTER 2024-05-08 16:45 | Inpatient (IN) | payer MEDICARE, OTHER ==
[2024-05-08] MEDS: ALBUTEROL NEBULIZED 2.5 MG/3 ML INHALATION STA ×2 (17:19→19:38)
[2024-05-08] MEDS: IPRATROPIUM 0.5 MG/2.5 ML NEBU INHALATION STA ×2 (17:20→19:38)
--- NOTE | 2024-05-08 17:33 | ED ---
General Adult HPI - General Stated complaint: AIED Time Seen by Provider: 05/08/24 17:08 - History of Present Illness Initial comments: History is limited by acuity of condition. Patient is a 63-year-old gentleman past medical history of COPD, current smoker, CAD, on Eliquis presenting today for shortness of breath x 2 weeks. Progressively worsened over the last 2 weeks. Over the weekend patient had few episodes of nausea vomiting and diarrhea. Stools were not black or bloody, emesis was nonbloody nonbilious. He also notes 2 days of fever ranging between 100 and 101 degrees. Last fever was this morning, 101 degrees took Tylenol at 9 AM. Endorses a cough productive of yellow sputum. EMS states on their arrival patient's pulse ox was 70% on room air and he had cyanotic fingertips. He was given albuterol prior to arrival in the ED with slight improvement in his work of breathing. Patient states he is chronically on prednisone. No recent antibiotics. - Related Data Home Medications Medication Instructions Recorded Confirmed Metoprolol Tartrate 25 mg PO BID 07/27/15 05/08/24 Pantoprazole Sodium 20 mg PO DAILY 12/15/21 05/08/24 Atorvastatin Calcium [Lipitor] 80 mg PO HS 06/11/23 05/08/24 Cholecalciferol [Vitamin D3 (25 50 mcg PO DAILY 06/11/23 05/08/24 Mcg = 1000 Iu)] Gabapentin 600 mg PO TID 11/16/23 05/08/24 Ipratropium-Albuterol Nebulize 3 ml INHALATION RT-QID 11/16/23 05/08/24 [Duoneb 0.5 mg-3 mg/3 ml Soln] Isosorbide Mononitrate ER [Imdur] 30 mg PO DAILY 11/25/23 05/08/24 Fluticasone/Umeclidin/Vilanter 1 puff INHALATION RT-DAILY 12/06/23 05/08/24 [Trelegy Ellipta 200-62.5-25] predniSONE 10 mg PO DAILY 12/06/23 05/08/24 Apixaban [Eliquis] 2.5 mg PO BID 05/08/24 05/08/24 Ipratropium-Albuterol Nebulize 3 ml INHALATION RT-QID PRN 05/08/24 05/08/24 [Duoneb 0.5 mg-3 mg/3 ml Soln] hydrOXYzine HCL [Atarax] 25 mg PO TID PRN 05/08/24 05/08/24 Previous Rx's Medication Instructions Recorded ALPRAZolam [Xanax] 0.5 mg PO Q12H PRN #2 tab 10/11/23 Folic Acid 1 mg PO DAILY tab 10/11/23 Allergies Allergy/AdvReac Type Severity Reaction Status Date / Time No Known Allergies Allergy Verified 05/08/24 18:31 Review of Systems ROS Statement: Those systems with pertinent positive or pertinent negative responses have been documented in the HPI. ROS Other: All systems not noted in ROS Statement are negative. Past Medical History Past Medical History: Atrial Fibrillation, Coronary Artery Disease (CAD), COPD, Deep Vein Thrombosis (DVT), GERD/Reflux, GI Bleed, Hyperlipidemia, Hypertension, Osteoarthritis (OA), Pneumonia, Sleep Apnea/CPAP/BIPAP Additional Past Medical History / Comment(s): DVT- LEFT LEG, CPAP, pt uses 3 liters 02 when active and at night with cpap. pt has portable 02 History of Any Multi-Drug Resistant Organisms: MRSA Date of last positivie culture/infection: 03/01/22 MRSA MDRO Source:: Right Axilla Past Surgical History: Heart Catheterization With Stent, Orthopedic Surgery Additional Past Surgical History / Comment(s): ABD AORTOGRAM. Other SX: (construction accident balcony fell from building)HAD CRUSHING INJURY TO ANKLES HAD FUSION DONE JOSE ALBERTO, LT FOOT TOE PARTIAL AMP. CHEST TUBE FOR PNEUMOTHORAX. SURGERY TO REMOVE BLOOD CLOT FROM LEG. Bronchial washings/lavage, EGD. femoral bypass,heart stents x3 Past Anesthesia/Blood Transfusion Reactions: No Reported Reaction Additional Past Anesthesia/Blood Transfusion Reaction / Comment(s): Pt states he has never received blood. Date of Last Stent Placement:: 04/2021 Past Psychological History: No Psychological Hx Reported Additional Psychological History / Comment(s): Pt lives alone in an apartment. He is normally independent. He does not drive- he uses the bus to get places. He uses a cane to ambulate. Smoking Status: Current every day smoker Past Alcohol Use History: Abuse Additional Past Alcohol Use History / Comment(s): ETOH and smoking, pt smokes .5 packs/ day Past Drug Use History: Marijuana Additional Drug Use History / Comment(s): cbd gummies - Past Family History Father Family Medical History: Coronary Artery Disease (CAD), Diabetes Mellitus, Myocardial Infarction ([place]), Pulmonary Embolus Additional Family Medical History / Comment(s): PE Mother Family Medical History: CVA/TIA Brother(s) Family Medical History: Diabetes Mellitus, Myocardial Infarction ([place]) General Exam - General Exam Comments Initial Comments: PE: CONSTITUTIONAL: Mild distress, ill-appearing, nontoxic SKIN: Warm, dry, no jaundice, hives or petechiae EYES: Pupils are equally round, extraocular movements intact without nystagmus, clear conjunctiva, non-icteric sclera HENT: Normocephalic, atraumatic dry mucus membranes, oropharynx clear without exudates NECK: , Full range of motion, normal appearance PULMONARY: Decreased breath sounds throughout the periphery, wheezes and rhonchi in bilateral mid lung blanca, supraclavicular retractions, decreased excursion CARDIOVASCULAR: Tachycardia, regular rate, rhythm, normal S1 and S2. No appreciated murmurs, rubs or gallops. Strong radial pulses with intact distal perfusion. No lower extremity edema GASTROINTESTINAL: Soft, active bowel sounds throughout, non-tender, non- distended, no palpable masses, no rebound or guarding. No hepatosplenomegaly MUSCULOSKELETAL: Extremities have no gross deformity, no edema, redness, or s welling. No calf swelling NEUROLOGIC:_a/o x 3, GCS 15, normal mentation and speech. Moves all extremities x 4 without motor or sensory deficit PSYCHIATRIC:_normal mood and affect, thought process is clear and linear Course Vital Signs 05/08/24 05/08/24 05/08/24 17:07 17:12 17:21 Temperature 97.6 F Pulse Rate 122 H 122 H Respiratory 24 Rate Blood Pressure 118/97 O2 Sat by Pulse 81 L Oximetry Fraction of 100 Inspired Oxygen (FIO2) 05/08/24 05/08/24 05/08/24 17:22 17:36 17:59 Temperature Pulse Rate 113 H 118 H Respiratory Rate Blood Pressure O2 Sat by Pulse Oximetry Fraction of 100 Inspired Oxygen (FIO2) 05/08/24 05/08/24 05/08/24 18:22 18:34 18:56 Temperature Pulse Rate 114 H 111 H 109 H Respiratory Rate Blood Pressure O2 Sat by Pulse Oximetry Fraction of 70 Inspired Oxygen (FIO2) 05/08/24 05/08/24 05/08/24 19:16 19:36 19:38 Temperature 99.1 F Pulse Rate 106 H 105 H Respiratory 20 Rate Blood Pressure 145/95 O2 Sat by Pulse 100 Oximetry Fraction of 70 Inspired Oxygen (FIO2) 05/08/24 05/08/24 21:24 21:41 Temperature Pulse Rate 106 H 109 H Respiratory 20 20 Rate Blood Pressure 127/87 122/67 O2 Sat by Pulse 100 100 Oximetry Fraction of Inspired Oxygen (FIO2) EKG Findings - EKG Comments: EKG Findings:: Sinus tachycardia with artifact present, rate 123 bpm, [place] interval 170 ms, QRS duration 90 ms, QT/QTc 280/353 ms, normal axis, T wave seem somewhat enlarged in lead V4, no obvious ST elevations or depressions, no STEMI, no arrhythmiaCompared to EKG performed on 12/18/2023, no new ST elevations or depressions from prior Medical Decision Making - Medical Decision Making Was pt. sent in by a medical professional or institution (Dr. PA, CAGE/VAULT SUPERVISOR, urgent care, hospital, or penitentiary...) When possible be specific @ -No Did you speak to anyone other than the patient for history (EMS, parent, family, police, friend...)? What history was obtained from this source @Spoke with EMS personel, state pt cynaotic and 70% on room air on their arrival Did you review nursing and triage notes (agree or disagree)? Why? @ -I reviewed and agree with nursing and triage notes Were old charts reviewed (outside hosp., previous admission, EMS record, old EKG, old radiological studies, urgent care reports/EKG's, penitentiary records)? Report findings Medical records reviewed - pt admitted in November of this year for chest pain, COPD exacerbation, a fin w/ RvR and was also treated for alcohol withdrawal during that admission Differential Diagnosis (chest pain, altered mental status, abdominal pain women, abdominal pain men, vaginal bleeding, weakness, fever, dyspnea, syncope, headache, dizziness, GI bleed, back pain, seizure, CVA, palpatations, mental health, musculoskeletal)? Differential diagnosis remains broad however top considerations include COPD exacerbation, pneumonia, viral infection, CHF, ACS, pneumothorax, this is not an all inclusive list EKG interpreted by me (3pts min.). @ -As above X-rays interpreted by me (1pt min.). No cardiiomegaly or pleural effusions, no obvious consolidations, no pneumothorax CT interpreted by me (1pt min.). @ -None done U/S interpreted by me (1pt. min.). @ -None done What testing was considered but not performed or refused? (CT, X-rays, U/S, lab s)? Why? @ -None What meds were considered but not given or refused? Why? @ -None Did you discuss the management of the patient with other professionals (professionals i.e. , PA, CAGE/VAULT SUPERVISOR, lab, RT, psych nurse, administrator social welfare, customer service advisor, teacher, lodge officer, leather case finisher)? Give summary @ Case discussed with Dr. Gomez, recs precedex administration, agreeable with ICU consult Was smoking cessation discussed for >3mins.? @ -No Was critical care preformed (if so, how long)? @Yes 45 minutes Were there social determinants of health that impacted care today? How? (Homelessness, low income, unemployed, alcoholism, drug addiction, transportation, low edu. Level, literacy, decrease access to med. care, snf, rehab)? Hx alcobolism Was there de-escalation of care discussed even if they declined (Discuss DNR or withdrawal of care, Hospice)? @ -No What co-morbidities impacted this encounter? (DM, HTN, Smoking, COPD, CAD, Cancer, CVA, ARF, Chemo, Hep., AIDS, mental health diagnosis, sleep apnea, mor bid obesity)? Alcoholism, CAD, COPD, smoking Was patient admitted / discharged? Hospital course, mention meds given and route, prescriptions, significant lab abnormalities, going to OR and other [facility] info. Admission- Pt seen and assessed on arrival. He arrives on NRB with albuterol treatment ongoing. Leaning forward slightly, decreased excursion, decreased aeration with scant wheezes and rhonchi. Patient placed on BiPAP on arrival, [id number] nebulizers and high-dose steroids were given, patient's work of breathing improved with BiPAP administration and nebulizer treatments. Comprehensive labs, abx, CXR ordered. Patient sleeping comfortably on bipap, oxygenating well. On reassessment, just prior to admission patient was disconnected briefly from his BiPAP. He was quickly reconnected by nursing staff and on my assessment patient states that his breathing does still feel improved from prior however he is diffusely tremuluous, on recheck afebrile, states that he was previously sober for 8 years however started drinking about 3 days ago -12 beers a day. Last drink this AM. Does have a history of alcohol withdrawal. Ordered 10 mg IV Valium. Per RT staff who are familiar with pt, patient does have a history of prior ICU admissions for COPD and alcohol withdrawal, and given new withdrawal symptoms combined with continued need for bipap will discuss with Dr. Gomez ICU admission. Case discussed with Dr. Gomez, recommends Precedex infusion, [facility] protocol accepts patient for admission to ICU. Case discussed with Dr. Albert, [facility] also kindly accepts patient for admission. Pt admitted in stable condition. Pt's tremors resolved after valium. Undiagnosed new problem with uncertain prognosis? @ -No Drug Therapy requiring intensive monitoring for toxicity (Heparin, Nitro, Insulin, Cardizem)? @ -No Were any procedures done? @ -No Diagnosis/symptom? @COPD exacerbatio, acute hypoxic respiratory failure, alcohol withdrawal Acute, or Chronic, or Acute on Chronic? @ acute Uncomplicated (without systemic symptoms) or Complicated (systemic symptoms)? complicated Side effects of treatment? @ -No Exacerbation, Progression, or Severe Exacerbation? exacerbation Poses a threat to life or bodily function? How? (Chest pain, [place], [place], pneumonia, PE, COPD, DKA, ARF, appy, cholecystitis, CVA, Diverticulitis, Homicidal, Suicidal, threat to staff... and all critical care pts) @ Yes, could result in respiratory arrest, delerium tremens if left untreated - Lab Data Result diagrams: 05/12/24 04:14 05/12/24 04:14 Lab Results 05/08/24 05/08/24 05/08/24 Range/Units 17:40 17:40 17:40 WBC 10.3 (3.8-10.6) k/uL RBC 5.23 (4.30-5.90) m/uL Hgb 14.8 (13.0-17.5) gm/dL Hct 48.6 (39.0-53.0) % MCV 92.8 (80.0-100.0) fL MCH 28.4 (25.0-35.0) pg MCHC 30.6 L (31.0-37.0) g/dL RDW 15.2 (11.5-15.5) % Plt Count 309 (150-450) k/uL MPV 7.0 Neutrophils % 75 % Lymphocytes % 16 % Monocytes % 7 % Eosinophils % 1 % Basophils % 1 % Neutrophils # 7.8 H (1.3-7.7) k/uL Lymphocytes # 1.6 (1.0-4.8) k/uL Monocytes # 0.7 (0-1.0) k/uL Eosinophils # 0.1 (0-0.7) k/uL Basophils # 0.1 (0-0.2) k/uL Hypochromasia Moderate PT 10.0 (10.0-12.5) sec INR 0.9 (<1.2) APTT 25.0 (22.0-30.0) sec Sodium 134 L (137-145) mmol/L Potassium 4.6 (3.5-5.1) mmol/L Chloride 90 L (98-107) mmol/L Carbon Dioxide 39 H (22-30) mmol/L Anion Gap 5 mmol/L BUN 5 L (9-20) mg/dL Creatinine 0.46 L (0.66-1.25) mg/dL Est GFR (CKD-EPI)AfAm >90 (>60 ml/min/1.73 sqM) Est GFR (CKD-EPI)NonAf >90 (>60 ml/min/1.73 sqM) Glucose 103 H (74-99) mg/dL Calcium 9.1 (8.4-10.2) mg/dL Magnesium 2.3 (1.6-2.3) mg/dL Total Bilirubin 0.3 (0.2-1.3) mg/dL AST 57 (17-59) U/L ALT 65 H (4-49) U/L Alkaline Phosphatase 94 (38-126) U/L Troponin I (0.000-0.034) ng/mL NT-Pro-B Natriuret Pep 667 pg/mL Total Protein 7.2 (6.3-8.2) g/dL Albumin 4.5 (3.5-5.0) g/dL 05/08/24 Range/Units 17:40 WBC (3.8-10.6) k/uL RBC (4.30-5.90) m/uL Hgb (13.0-17.5) gm/dL Hct (39.0-53.0) % MCV (80.0-100.0) fL MCH (25.0-35.0) pg MCHC (31.0-37.0) g/dL RDW (11.5-15.5) % Plt Count (150-450) k/uL MPV Neutrophils % % Lymphocytes % % Monocytes % % Eosinophils % % Basophils % % Neutrophils # (1.3-7.7) k/uL Lymphocytes # (1.0-4.8) k/uL Monocytes # (0-1.0) k/uL Eosinophils # (0-0.7) k/uL Basophils # (0-0.2) k/uL Hypochromasia PT (10.0-12.5) sec INR (<1.2) APTT (22.0-30.0) sec Sodium (137-145) mmol/L Potassium (3.5-5.1) mmol/L Chloride (98-107) mmol/L Carbon Dioxide (22-30) mmol/L Anion Gap mmol/L BUN (9-20) mg/dL Creatinine (0.66-1.25) mg/dL Est GFR (CKD-EPI)AfAm (>60 ml/min/1.73 sqM) Est GFR (CKD-EPI)NonAf (>60 ml/min/1.73 sqM) Glucose (74-99) mg/dL Calcium (8.4-10.2) mg/dL Magnesium (1.6-2.3) mg/dL Total Bilirubin (0.2-1.3) mg/dL AST (17-59) U/L ALT (4-49) U/L Alkaline Phosphatase (38-126) U/L Troponin I 0.018 (0.000-0.034) ng/mL NT-Pro-B Natriuret Pep pg/mL Total Protein (6.3-8.2) g/dL Albumin (3.5-5.0) g/dL Disposition Clinical Impression: Alcohol withdrawal, COPD exacerbation, Acute hypoxic respiratory failure Disposition: ADMITTED IP TO THIS HOSP Condition: Stable
[2024-05-08 17:53] LABS: Basophils # (A) 0.1 k/uL (0-0.2); Basophils % (A) 1 %; Eosinophils # (A) 0.1 k/uL (0-0.7); Eosinophils % (A) 1 %; HCT 48.6 % (39.0-53.0); HGB 14.8 gm/dL (13.0-17.5); Hypochromasia Moderate; Lymphocytes # (A) 1.6 k/uL (1.0-4.8); Lymphocytes % (A) 16 %; MCH 28.4 pg (25.0-35.0); MCHC 30.6 g/dL (31.0-37.0); MCV 92.8 fL (80.0-100.0); Monocytes # (A) 0.7 k/uL (0-1.0); Monocytes % (A) 7 %; Neutrophils # (A) 7.8 k/uL (1.3-7.7); Neutrophils % (A) 75 %; Platelet Count 309 k/uL (150-450); RBC 5.23 m/uL (4.30-5.90); RDW 15.2 % (11.5-15.5); WBC 10.3 k/uL (3.8-10.6)
[2024-05-08] MEDS: ALBUTEROL NEBULIZED 2.5 MG/3 ML INHALATION SCH (17:58)
[2024-05-08] MEDS: IPRATROPIUM 0.5 MG/2.5 ML NEBU INHALATION ONE ×2 (17:58→18:33)
[2024-05-08] MEDS: SODIUM CHLORIDE 0.9% 1,000 ML IV STA (18:00)
[2024-05-08] MEDS: methylPREDNISolone SOD SUCCI 125 MG/2 ML VIAL IV STA (18:01)
[2024-05-08 18:05] LABS: INR 0.9 (<1.2)
[2024-05-08 18:09] LABS: ALT 65 U/L (4-49); AST 57 U/L (17-59); African American GFR (CKD) >90 (>60 ml/min/1.73 sqM); Albumin 4.5 g/dL (3.5-5.0); Alkaline Phosphatase 94 U/L (38-126); Blood Urea Nitrogen 5 mg/dL (9-20); Calcium 9.1 mg/dL (8.4-10.2); Chloride 90 mmol/L (98-107); Glucose 103 mg/dL (74-99); Magnesium 2.3 mg/dL (1.6-2.3); Non-African American GFR(CKD) >90 (>60 ml/min/1.73 sqM); Potassium 4.6 mmol/L (3.5-5.1); Sodium 134 mmol/L (137-145); Total Bilirubin 0.3 mg/dL (0.2-1.3); Total Protein 7.2 g/dL (6.3-8.2)
[2024-05-08 18:15] LABS: Anion Gap 5 mmol/L; Carbon Dioxide 39 mmol/L (22-30)
[2024-05-08 18:18] LABS: NT-Pro-B-Type Natriuretic Pept 667 pg/mL
--- NOTE | 2024-05-08 19:06 | XR ---
EXAMINATION TYPE: XR chest 1V portable DATE OF EXAM: 05/08/2024 6:39 PM COMPARISON: Previous chest radiograph, most recently dated 12/11/2023. CLINICAL INDICATION: Male, 63 years old with history of COPD exac. poss PNA; [facility] TECHNIQUE: XR chest 1V portable Frontal view of the chest. FINDINGS: Cardiac silhouette within normal limits in size. No definite acute focal consolidation. No pleural effusion. Lungs hyperinflated bilaterally with coarsening of the interstitial markings. No acute osseous abnormality. IMPRESSION: 1. No acute abnormality in the chest. 2. Findings suggestive of underlying COPD. [facility], , 05/08/2024 7:03 PM
[2024-05-08] MEDS: AZITHROMYCIN 500 MG in SODIUM CHLORIDE 0.9% 250 ML IVPB STA (19:15)
[2024-05-08] MEDS ORDERED: LORazepam 2 MG/ML INJ IV PRN (19:37)
[2024-05-08] MEDS ORDERED: Potassium Replacement Protocol 1 EACH MISC MISCELLANE PRN (19:44)
[2024-05-08] MEDS ORDERED: MORPHINE SULFATE 2 MG/ML SYRINGE IV PRN (19:44)
[2024-05-08] MEDS ORDERED: MORPHINE SULFATE 4 MG/ML SYRINGE IV PRN (19:44)
[2024-05-08] MEDS ORDERED: Phosphorus Replacement Protoco 1 EACH MISC MISCELLANE PRN (19:44)
[2024-05-08] MEDS ORDERED: NALOXONE 0.4 MG/ML 1 ML VIAL IV PRN (19:44)
[2024-05-08] MEDS ORDERED: Magnesium Replacement Protocol 1 EACH MISC MISCELLANE PRN (19:44)
[2024-05-08 19:53] LABS: Glucose,Whole Blood 110 mg/dL (70-110)
[2024-05-08] MEDS: SODIUM CHLORIDE 0.9% 1,000 ML IV ONE (20:03)
[2024-05-08] MEDS: DEXTROSE 5%-0.45% NACL 1,000 ML IV SCH (20:05)
[2024-05-08] MEDS: NICOTINE 21MG/24HR PATCH TRANSDERM SCH (20:05)
[2024-05-08] MEDS: THIAMINE 100 MG/ML 2 ML VIAL IM STA (20:06)
[2024-05-08 20:53] LABS: Alcohol <10 mg/dL
[2024-05-08 22:01] LABS: Glucose,Whole Blood 150 mg/dL (70-110)
[2024-05-08] MEDS: APIXABAN 2.5 MG TABLET PO SCH (22:52)
[2024-05-08] MEDS: FAMOTIDINE 20 MG/2 ML VIAL IV SCH (22:58)
[2024-05-08] MEDS: ATORVASTATIN 80 MG TAB PO SCH (22:58)
[2024-05-08] MEDS: GABAPENTIN 300 MG CAP PO SCH (22:58)
[2024-05-08] MEDS: METOPROLOL TARTRATE 25 MG TAB PO SCH (22:58)
[2024-05-08] MEDS: LORazepam 2 MG/ML INJ IV PRN (22:59)
[2024-05-08] MEDS: FOLIC ACID 1 MG TAB PO SCH (22:59)
[2024-05-08] MEDS: DEXMEDETOMIDINE/0.9% NACL(PMX) 400 MCG in EMPTY BAG 1 BAG IV SCH (23:25)
[2024-05-08] MEDS: IPRATROPIUM-ALBUTEROL 3 ML NEB INHALATION SCH (23:59)
[2024-05-09] MEDS: IPRATROPIUM-ALBUTEROL 3 ML NEB INHALATION PRN (04:38)
[2024-05-09] MEDS: SYMBICORT 160-4.5 MCG INHALER INHALATION SCH (06:52)
[2024-05-09 07:14] LABS: Basophils % (A) 0 %; Eosinophils % (A) 0 %; HCT 40.3 % (39.0-53.0); HGB 12.4 gm/dL (13.0-17.5); Hypochromasia Marked; Lymphocytes # (A) 0.7 k/uL (1.0-4.8); Lymphocytes % (A) 13 %; MCH 29.1 pg (25.0-35.0); MCHC 30.8 g/dL (31.0-37.0); MCV 94.6 fL (80.0-100.0); Mean Platelet Volume 6.9; Monocytes # (A) 0.3 k/uL (0-1.0); Monocytes % (A) 5 %; Neutrophils # (A) 4.3 k/uL (1.3-7.7); Neutrophils % (A) 81 %; Platelet Count 252 k/uL (150-450); RBC 4.26 m/uL (4.30-5.90); RDW 15.2 % (11.5-15.5); WBC 5.2 k/uL (3.8-10.6)
--- NOTE | 2024-05-09 07:21 | XR ---
EXAMINATION TYPE: XR chest 1V DATE OF EXAM: 05/09/2024 4:36 AM COMPARISON: Chest radiographs from 05/08/2024 CLINICAL INDICATION: Male, 63 years old with history of COPD exacerbation; [facility] TECHNIQUE: XR chest 1V Frontal view of the chest. FINDINGS: Lungs/Pleura: Prominent interstitial lung markings are seen scattered throughout the lungs. No eviden ce of focal consolidation, pneumothorax or pleural effusion. Pulmonary vascularity: Unremarkable. Heart/mediastinum: Cardiomediastinal silhouette is unremarkable. Musculoskeletal: No acute osseous pathology. IMPRESSION: 1. No acute cardiopulmonary disease process. 2. COPD changes. [facility], , 05/09/2024 7:18 AM
[2024-05-09 07:45] LABS: ALT 42 U/L (4-49); AST 37 U/L (17-59); African American GFR (CKD) >90 (>60 ml/min/1.73 sqM); Albumin 3.3 g/dL (3.5-5.0); Alkaline Phosphatase 78 U/L (38-126); Blood Urea Nitrogen 9 mg/dL (9-20); Calcium 8.4 mg/dL (8.4-10.2); Chloride 90 mmol/L (98-107); Glucose 154 mg/dL (74-99); Non-African American GFR(CKD) >90 (>60 ml/min/1.73 sqM); Potassium 4.9 mmol/L (3.5-5.1); Sodium 132 mmol/L (137-145); Total Bilirubin 0.2 mg/dL (0.2-1.3); Total Protein 5.6 g/dL (6.3-8.2)
[2024-05-09 07:51] LABS: Anion Gap 0 mmol/L
[2024-05-09 08:14] LABS: Carbon Dioxide 42 mmol/L (22-30)
[2024-05-09] MEDS: ISOSORBIDE MONONITRATE ER 30 MG TAB.ER.24H PO SCH (09:21)
[2024-05-09] MEDS: ACETAMINOPHEN TAB 325 MG TAB PO PRN (09:21)
[2024-05-09] MEDS: MULTIVITAMINS, THERA 1 EACH TAB PO SCH (09:21)
[2024-05-09] MEDS: LORazepam 2 MG/ML INJ IV PRN ×2 (09:22→15:42)
[2024-05-09] MEDS: DOXYCYCLINE 100 MG CAP PO SCH (10:26)
[2024-05-09] MEDS: SODIUM CHLORIDE 0.9% 1,000 ML IV SCH (10:26)
[2024-05-09] MEDS: methylPREDNISolone SOD SUCCI 125 MG/2 ML VIAL IV SCH (12:43)
--- NOTE | 2024-05-09 14:06 | P.CNPUL ---
History of Present Illness Consult date: 05/09/24 Requesting physician: Ryan Buck Reason for consult: COPD Chief complaint: Shortness of breath and cough History of present illness: This is a 63-year-old white male with known history of severe COPD, normally sees Dr. Dowd on outpatient basis. Patient continues to smoke on the average of 6 cigarettes a day continues to drink alcohol on a daily basis about 12 beers a day. Patient is also known to have history of coronary artery disease and previous stent placement, hypertension, chronic atrial fibrillation, patient presented to the ER yesterday with few days history of increased shor tness of breath, cough however wheezing. Patient required placement on BiPAP, patient was admitted to the ICU mostly because of his significant agitation and restlessness, and the plan was to consider placing the patient on Precedex if he does not improve with Ativan for alcohol withdrawal symptoms however the patient did not require to go on Precedex, he responded well to bronchodilators, and re sponded well to Ativan as needed. Patient was placed on the CIWA protocol. And I saw him this morning, seems to be doing much better, breathing a lot easier. Less cough less wheezing less shortness of breath, chest x-ray on this admission showed no evidence of acute cardiopulmonary process. It did show evidence of COPD. Looking back at recent CT of the chest from 03/03/2024, patient had obvio usly some stable pulmonary nodules and parenchymal scarring throughout the lungs. And again the patient is being monitored on outpatient basis by Dr. Dowd. Labs on this admission showed relatively normal electrolytes, normal renal profile, bicarb is 42, relatively normal CBC alcohol level on this admission was less than 10. Review of Systems REVIEW OF SYSTEMS: CONSTITUTIONAL: Denies any recent significant weight loss or weight gain. EYES: Denies change in vision. EARS, NOSE, MOUTH, THROAT: Denies headaches, denies sore throat. CARDIOVASCULAR: Denies chest pain, palpitations or syncopal episodes. RESPIRATORY: As noted in HPI wheezing shortness of breath GASTROINTESTINAL: Denies change in appetite, denies abdominal pain GENITOURINARY: Denies hematuria, denies infections. MUSKULOSKELETAL: Positive for lower extremity swelling. INTEGUMENTARY: Denies rash, denies eczema. NEUROLOGICAL: Denies recent memory loss, no recent seizure activity. PSYCHIATRIC: Denies anxiety, denies depression. HEMATOLOGIC/LYMPHATIC: Denies anemia, denies enlarged lymph nodes. Past Medical History Past Medical History: Atrial Fibrillation, Coronary Artery Disease (CAD), COPD, Deep Vein Thrombosis (DVT), GERD/Reflux, GI Bleed, Hyperlipidemia, Hypertension, Osteoarthritis (OA), Pneumonia, Sleep Apnea/CPAP/BIPAP Additional Past Medical History / Comment(s): DVT- LEFT LEG, pt uses 3 liters 02 History of Any Multi-Drug Resistant Organisms: MRSA Date of last positivie culture/infection: 03/01/22 MRSA MDRO Source:: Right Axilla Past Surgical History: Heart Catheterization With Stent, Orthopedic Surgery Additional Past Surgical History / Comment(s): ABD AORTOGRAM. Other SX: (construction accident balcony fell from building)HAD CRUSHING INJURY TO ANKLES HAD FUSION DONE JOSE ALBERTO, LT FOOT TOE PARTIAL AMP. CHEST TUBE FOR PNEUMOTHORAX. SURGERY TO REMOVE BLOOD CLOT FROM LEG. Bronchial washings/lavage, EGD. femoral bypass, heart stents x3 Past Anesthesia/Blood Transfusion Reactions: No Reported Reaction Additional Past Anesthesia/Blood Transfusion Reaction / Comment(s): Pt states he has never received blood Date of Last Stent Placement:: 04/2021 Past Psychological History: No Psychological Hx Reported Additional Psychological History / Comment(s): Pt lives alone in an apartment. He is normally independent. He does not drive- he uses the bus to get places. He uses a cane to ambulate. Smoking Status: Current every day smoker Past Alcohol Use History: Abuse Additional Past Alcohol Use History / Comment(s): patient smokes 0.5 packs of cigarettes per day, 6 months sober from ETOH until 05/06/24, patient states he has had 24 drinks in the last two days Past Drug Use History: None Reported Additional Drug Use History / Comment(s): cbd gummies - Past Family History Father Family Medical History: Coronary Artery Disease (CAD), Diabetes Mellitus, Myocardial Infarction ([place]), Pulmonary Embolus Additional Family Medical History / Comment(s): PE Brother(s) Family Medical History: Diabetes Mellitus, Myocardial Infarction ([place]) Mother Family Medical History: CVA/TIA Medications and Allergies Home Medications Medication Instructions Recorded Confirmed Type Metoprolol Tartrate 25 mg PO BID 07/27/15 05/08/24 History Pantoprazole Sodium 20 mg PO DAILY 12/15/21 05/08/24 History Atorvastatin Calcium [Lipitor] 80 mg PO HS 06/11/23 05/08/24 History Cholecalciferol [Vitamin D3 (25 50 mcg PO DAILY 06/11/23 05/08/24 History Mcg = 1000 Iu)] ALPRAZolam [Xanax] 0.5 mg PO Q12H PRN #2 tab 10/11/23 05/08/24 Rx Folic Acid 1 mg PO DAILY tab 10/11/23 05/08/24 Rx Gabapentin 600 mg PO TID 11/16/23 05/08/24 History Ipratropium-Albuterol Nebulize 3 ml INHALATION RT-QID 11/16/23 05/08/24 History [Duoneb 0.5 mg-3 mg/3 ml Soln] Isosorbide Mononitrate ER [Imdur] 30 mg PO DAILY 11/25/23 05/08/24 History Fluticasone/Umeclidin/Vilanter 1 puff INHALATION RT-DAILY 12/06/23 05/08/24 History [Trelegy Ellipta 200-62.5-25] predniSONE 10 mg PO DAILY 12/06/23 05/08/24 History Apixaban [Eliquis] 2.5 mg PO BID 05/08/24 05/08/24 History Ipratropium-Albuterol Nebulize 3 ml INHALATION RT-QID PRN 05/08/24 05/08/24 History [Duoneb 0.5 mg-3 mg/3 ml Soln] hydrOXYzine HCL [Atarax] 25 mg PO TID PRN 05/08/24 05/08/24 History Allergies Allergy/AdvReac Type Severity Reaction Status Date / Time No Known Allergies Allergy Verified 05/08/24 18:31 Physical Exam Vitals: Vital Signs Temp Pulse Resp BP Pulse Ox FiO2 05/09/24 13:00 79 12 112/76 95 05/09/24 12:00 98.2 F 83 12 124/81 96 05/09/24 11:00 85 17 129/84 97 05/09/24 10:00 90 16 124/85 98 05/09/24 09:00 93 21 124/85 100 05/09/24 08:00 97.6 F 73 17 132/92 99 40 05/09/24 07:00 75 22 119/78 98 05/09/24 06:52 40 05/09/24 06:00 76 17 134/91 97 05/09/24 05:00 83 21 118/80 97 05/09/24 04:39 79 05/09/24 04:00 97.5 F L 83 17 124/86 99 40 05/09/24 03:46 40 05/09/24 03:00 82 21 106/76 98 05/09/24 02:00 82 19 110/80 98 05/09/24 01:00 83 20 131/93 99 05/09/24 00:03 93 22 99 05/09/24 00:00 98.1 F 98 19 116/91 99 60 05/08/24 23:59 50 05/08/24 23:30 97 11 L 99 05/08/24 23:00 108 H 19 104/77 96 60 05/08/24 22:30 112 H 19 117/83 94 L 05/08/24 22:01 98.1 F 19 97 70 05/08/24 21:41 109 H 20 122/67 100 05/08/24 21:24 106 H 20 127/87 100 05/08/24 19:38 105 H 70 05/08/24 19:36 99.1 F 05/08/24 19:16 106 H 20 145/95 100 05/08/24 18:56 109 H 70 05/08/24 18:34 111 H 05/08/24 18:22 114 H 05/08/24 17:59 118 H 05/08/24 17:36 113 H 05/08/24 17:22 100 05/08/24 17:21 100 05/08/24 17:12 97.6 F 122 H 24 118/97 81 L 05/08/24 17:07 122 H Intake and Output 05/08/24 05/09/24 05/09/24 22:59 06:59 14:59 Intake Total 75 1140 630 Output Total 550 700 500 Balance -475 440 130 Intake: IV 75 600 450 Dextrose 5%-0.45% NaCl 1, 75 600 300 000 ml @ 75 mls/hr IV . [id number] PRIYANKA Rx#:[id number] Sodium Chloride 0.9% 1, 150 000 ml @ 50 mls/hr IV . Q20H PRIYANKA Rx#:[id number] Oral 540 180 Output: Urine 550 700 500 Other: Voiding Method Urinal Urinal # Bowel Movements 1 Weight 68.039 kg 66.3 kg GENERAL EXAM: Alert, disheveled 63-year-old male, on 3 L nasal cannula. Patient was on BiPAP 40% 04/17 HEAD: Normocephalic. EYES: Normal reaction of pupils, equal size. NOSE: Clear with pink turbinates. THROAT: No erythema or exudates. NECK: No masses, no JVD. CHEST: No chest wall deformity. LUNGS: Clear and wheezes noted bilaterally. CVS: S1 and S2 normal with no audible murmur, regular rhythm. ABDOMEN: No hepatosplenomegaly, normal bowel sounds, no guarding or rigidity. SKIN: No rashes CENTRAL NERVOUS SYSTEM: Anxious, otherwise no gross focal deficit EXTREMITIES: T trace of lower extremity peripheral edema. No clubbing, no cyanosis. Peripheral pulses are intact. Results - Laboratory Findings CBC and BMP: 05/09/24 06:36 05/09/24 06:36 PT/INR, D-dimer PT 10.0 sec (10.0-12.5) 05/08/24 17:40 INR 0.9 (<1.2) 05/08/24 17:40 Abnormal lab findings: Abnormal Labs 05/08/24 05/08/24 05/08/24 17:40 17:40 22:00 RBC Hgb MCHC 30.6 L Neutrophils # 7.8 H Lymphocytes # Sodium 134 L Chloride 90 L Carbon Dioxide 39 H BUN 5 L Creatinine 0.46 L Glucose 103 H POC Glucose (mg/dL) 150 H ALT 65 H Total Protein Albumin 05/09/24 05/09/24 06:36 06:36 RBC 4.26 L Hgb 12.4 L MCHC 30.8 L Neutrophils # Lymphocytes # 0.7 L Sodium 132 L Chloride 90 L Carbon Dioxide 42 H* BUN Creatinine 0.50 L Glucose 154 H POC Glucose (mg/dL) ALT Total Protein 5.6 L Albumin 3.3 L - Diagnostic Findings Chest x-ray: image reviewed (As noted in HPI) Assessment and Plan Assessment: Impression Acute on chronic hypoxemic respiratory failure secondary to an acute exacerbation of chronic obstructive pulmonary disease Oxygen dependent COPD Obstructive sleep apnea utilizing CPAP Chronic and ongoing tobacco dependence Daily alcohol use, patient is on CIWA protocol Coronary artery disease with previous stent placements Peripheral vascular disease with femoral bypass History of atrial fibrillation Hypertension Hyperlipidemia Marijuana use Recommendation: Continue to monitor the patient in the ICU Continue bronchodilators, steroids, antibiotics chest x-ray showed no evidence of pneumonia Continue CIWA protocol GI and DVT prophylaxis Will continue to follow Time with Patient: Greater than 30
--- NOTE | 2024-05-09 18:21 | P.HPIM ---
History of Present Illness H&P Date: 05/09/24 History of present illness: 63-year-old male patient with past medical history significant for severe COPD uses 3 L oxygen at baseline, current smoker, alcohol use disorder with up to 12 beers a day, atrial fibrillation, coronary artery disease, history of DVT, hypertension, hyperlipidemia, history of GI bleed, history of coronary artery disease with stent placement who presented to ER with a complaint of increased shortness of breath, cough and wheezing. Patient required BiPAP in the ED, was admitted to ICU as patient was significantly agitated and restless, there was concern as patient might need Precedex if did not improve with Ativan for alcohol withdrawal symptoms. Patient denied any fever or chills, reported increased productive cough. Patient denied any chest pain, palpitation, nausea vomiting diarrhea constipation abdominal pain dysuria urgency frequency weakness or numbness of the extremities. On admission patient was afebrile, heart rate and respiratory rate was normal, blood pressure was normal. Patient required BiPAP. Chest x-ray negative for any acute process, showed COPD changes. REVIEW OF SYSTEMS: CONSTITUTIONAL: Anxious. HEENT: No recent visual problems or hearing problems. Denied any sore throat. CARDIOVASCULAR: No chest pain, orthopnea, PND, no palpitations, no syncope. PULMONARY: Complains of shortness breath, cough. GASTROINTESTINAL: No diarrhea, no nausea, no vomiting, no abdominal pain. NEUROLOGICAL: No headaches, no weakness, no numbness. HEMATOLOGICAL: Denies any bleeding or petechiae. GENITOURINARY: Denies any burning micturition, frequency, or urgency. MUSCULOSKELETAL/RHEUMATOLOGICAL: Denies any joint pain, swelling, or any muscle pain. ENDOCRINE: Denies any polyuria or polydipsia. The rest of the 14-point review of systems is negative. PHYSICAL EXAMINATION: GENERAL: The patient is A&O x3, NAD, anxious. HEENT: EOMI, Sclerae anicteric, Moist Mucous membranes Neck: Supple, Non tender, No JVD PULMONARY: Breath sounds bilaterally, bilateral wheezing. CARDIOVASCULAR: S1, S2 present. No murmurs, rubs, or gallops. ABDOMEN: Soft, nontender, nondistended, normoactive bowel sounds. No guarding or rebound tenderness. MUSCULOSKELETAL: No edema, No cyanosis. No clubbing. Normal ROM. Intact peripheral pulses. NEUROLOGICAL: CN 2-12 grossly intact. No FND Assessment and plan: Acute on chronic hypoxic hypercapnic respiratory failure: Acute COPD exacerbation COPD: On 3 L oxygen at baseline Obstructive sleep apnea: On CPAP Ongoing tobacco use Alcohol use disorder Alcohol withdrawal syndrome: History of CAD with previous stenting Peripheral vascular disease with femoral bypass History of atrial fibrillation: On Eliquis Hypertension Hyperlipidemia Marijuana use Plan: Patient being monitored in the ICU, Pulmonary following Continue bronchodilator, steroids, antibiotics-doxycycline. Continue CIWA protocol, thiamine, folic acid, multivitamin. DVT prophylaxis AC Monitor vital signs and labs Labs and medication were reviewed. Continue same treatment. Further recommendations as per clinical course of the patient Dictation was produced using [employer] dictation software. please excuse any grammatical, word or spelling errors. Past Medical History Past Medical History: Atrial Fibrillation, Coronary Artery Disease (CAD), COPD, Deep Vein Thrombosis (DVT), GERD/Reflux, GI Bleed, Hyperlipidemia, Hypertension, Osteoarthritis (OA), Pneumonia, Sleep Apnea/CPAP/BIPAP Additional Past Medical History / Comment(s): DVT- LEFT LEG, pt uses 3 liters 02 History of Any Multi-Drug Resistant Organisms: MRSA Date of last positivie culture/infection: 03/01/22 MRSA MDRO Source:: Right Axilla Past Surgical History: Heart Catheterization With Stent, Orthopedic Surgery Additional Past Surgical History / Comment(s): ABD AORTOGRAM. Other SX: (construction accident balcony fell from building)HAD CRUSHING INJURY TO ANKLES HAD FUSION DONE JOSE ALBERTO, LT FOOT TOE PARTIAL AMP. CHEST TUBE FOR PNEUMOTHORAX. SURGERY TO REMOVE BLOOD CLOT FROM LEG. Bronchial washings/lavage, EGD. femoral bypass, heart stents x3 Past Anesthesia/Blood Transfusion Reactions: No Reported Reaction Additional Past Anesthesia/Blood Transfusion Reaction / Comment(s): Pt states he has never received blood Date of Last Stent Placement:: 04/2021 Past Psychological History: No Psychological Hx Reported Additional Psychological History / Comment(s): Pt lives alone in an apartment. He is normally independent. He does not drive- he uses the bus to get places. He uses a cane to ambulate. Smoking Status: Current every day smoker Past Alcohol Use History: Abuse Additional Past Alcohol Use History / Comment(s): patient smokes 0.5 packs of cigarettes per day, 6 months sober from ETOH until 05/06/24, patient states he has had 24 drinks in the last two days Past Drug Use History: None Reported Additional Drug Use History / Comment(s): cbd gummies - Past Family History Father Family Medical History: Coronary Artery Disease (CAD), Diabetes Mellitus, Myocar dial Infarction ([place]), Pulmonary Embolus Additional Family Medical History / Comment(s): PE Brother(s) Family Medical History: Diabetes Mellitus, Myocardial Infarction ([place]) Mother Family Medical History: CVA/TIA Medications and Allergies Home Medications Medication Instructions Recorded Confirmed Type Metoprolol Tartrate 25 mg PO BID 07/27/15 05/08/24 History Pantoprazole Sodium 20 mg PO DAILY 12/15/21 05/08/24 History Atorvastatin Calcium [Lipitor] 80 mg PO HS 06/11/23 05/08/24 History Cholecalciferol [Vitamin D3 (25 50 mcg PO DAILY 06/11/23 05/08/24 History Mcg = 1000 Iu)] ALPRAZolam [Xanax] 0.5 mg PO Q12H PRN #2 tab 10/11/23 05/08/24 Rx Folic Acid 1 mg PO DAILY tab 10/11/23 05/08/24 Rx Gabapentin 600 mg PO TID 11/16/23 05/08/24 History Ipratropium-Albuterol Nebulize 3 ml INHALATION RT-QID 11/16/23 05/08/24 History [Duoneb 0.5 mg-3 mg/3 ml Soln] Isosorbide Mononitrate ER [Imdur] 30 mg PO DAILY 11/25/23 05/08/24 History Fluticasone/Umeclidin/Vilanter 1 puff INHALATION RT-DAILY 12/06/23 05/08/24 History [Trelegy Ellipta 200-62.5-25] predniSONE 10 mg PO DAILY 12/06/23 05/08/24 History Apixaban [Eliquis] 2.5 mg PO BID 05/08/24 05/08/24 History Ipratropium-Albuterol Nebulize 3 ml INHALATION RT-QID PRN 05/08/24 05/08/24 History [Duoneb 0.5 mg-3 mg/3 ml Soln] hydrOXYzine HCL [Atarax] 25 mg PO TID PRN 05/08/24 05/08/24 History Allergies Allergy/AdvReac Type Severity Reaction Status Date / Time No Known Allergies Allergy Verified 05/08/24 18:31 Physical Exam Vitals: Vital Signs Temp Pulse Resp BP Pulse Ox FiO2 05/09/24 18:00 92 16 110/73 96 05/09/24 17:00 89 24 122/78 95 05/09/24 16:00 97.4 F L 77 16 108/74 99 40 05/09/24 15:00 75 13 108/74 05/09/24 14:00 92 24 117/80 05/09/24 13:00 79 12 112/76 95 05/09/24 12:00 98.2 F 83 12 124/81 96 05/09/24 11:00 85 17 129/84 97 05/09/24 10:00 90 16 124/85 98 05/09/24 09:00 93 21 124/85 100 05/09/24 08:00 97.6 F 73 17 132/92 99 40 05/09/24 07:00 75 22 119/78 98 05/09/24 06:52 40 05/09/24 06:00 76 17 134/91 97 05/09/24 05:00 83 21 118/80 97 05/09/24 04:39 79 05/09/24 04:00 97.5 F L 83 17 124/86 99 40 05/09/24 03:46 40 05/09/24 03:00 82 21 106/76 98 05/09/24 02:00 82 19 110/80 98 05/09/24 01:00 83 20 131/93 99 05/09/24 00:03 93 22 99 05/09/24 00:00 98.1 F 98 19 116/91 99 60 05/08/24 23:59 50 05/08/24 23:30 97 11 L 99 05/08/24 23:00 108 H 19 104/77 96 60 05/08/24 22:30 112 H 19 117/83 94 L 05/08/24 22:01 98.1 F 19 97 70 05/08/24 21:41 109 H 20 122/67 100 05/08/24 21:24 106 H 20 127/87 100 05/08/24 19:38 105 H 70 05/08/24 19:36 99.1 F 05/08/24 19:16 106 H 20 145/95 100 05/08/24 18:56 109 H 70 05/08/24 18:34 111 H 05/08/24 18:22 114 H Intake and Output 05/09/24 05/09/24 05/09/24 06:59 14:59 22:59 Intake Total 1140 680 450 Output Total 524 454 4760 Balance 440 180 -1000 Intake: IV 600 500 200 Dextrose 5%-0.45% NaCl 1, 600 300 000 ml @ 75 mls/hr IV . [id number] PRIYANKA Rx#:[id number] Sodium Chloride 0.9% 1, 200 200 000 ml @ 50 mls/hr IV . Q20H PRIYANKA Rx#:[id number] Oral 540 180 250 Output: Urine 286 293 1986 Other: Voiding Method Urinal Urinal Urinal # Bowel Movements 1 Weight 66.3 kg Results CBC & Chem 7: 05/09/24 06:36 05/09/24 06:36 Labs: Abnormal Lab Results - Last 24 Hours (Table) 05/08/24 05/08/24 05/09/24 Range/Units 17:40 22:00 06:36 RBC 4.26 L (4.30-5.90) m/uL Hgb 12.4 L (13.0-17.5) gm/dL MCHC 30.8 L (31.0-37.0) g/dL Lymphocytes # 0.7 L (1.0-4.8) k/uL Sodium 134 L (137-145) mmol/L Chloride 90 L (98-107) mmol/L Carbon Dioxide 39 H (22-30) mmol/L BUN 5 L (9-20) mg/dL Creatinine 0.46 L (0.66-1.25) mg/dL Glucose 103 H (74-99) mg/dL POC Glucose (mg/dL) 150 H (70-110) mg/dL ALT 65 H (4-49) U/L Total Protein (6.3-8.2) g/dL Albumin (3.5-5.0) g/dL 05/09/24 Range/Units 06:36 RBC (4.30-5.90) m/uL Hgb (13.0-17.5) gm/dL MCHC (31.0-37.0) g/dL Lymphocytes # (1.0-4.8) k/uL Sodium 132 L (137-145) mmol/L Chloride 90 L (98-107) mmol/L Carbon Dioxide 42 H* (22-30) mmol/L BUN (9-20) mg/dL Creatinine 0.50 L (0.66-1.25) mg/dL Glucose 154 H (74-99) mg/dL POC Glucose (mg/dL) (70-110) mg/dL ALT (4-49) U/L Total Protein 5.6 L (6.3-8.2) g/dL Albumin 3.3 L (3.5-5.0) g/dL Thrombosis Risk Factor Assmnt - Choose All That Apply Any of the Below Risk Factors Present?: Yes Each Factor Represents 1 point: Abnormal pulmonary function (COPD) Other Risk Factors: Yes Each Risk Factor Represents 2 Points: Age 61-74 years Other congenital or acquired thrombophilia - If yes, enter type in comment: No Thrombosis Risk Factor Assessment Total Risk Factor Score: 3 Thrombosis Risk Factor Assessment Level: Moderate Risk
[2024-05-09] MEDS: BUDESONIDE 1 MG/2 ML NEBU INHALATION SCH (19:38)
[2024-05-09] MEDS: FORMOTEROL FUMARATE 20 MCG/2 ML NEBU INHALATION SCH (19:43)
[2024-05-10 06:32] LABS: Basophils % (A) 0 %; Eosinophils % (A) 0 %; HGB 12.8 gm/dL (13.0-17.5); Hypochromasia Marked; Lymphocytes # (A) 0.7 k/uL (1.0-4.8); Lymphocytes % (A) 7 %; MCH 28.8 pg (25.0-35.0); MCHC 30.5 g/dL (31.0-37.0); MCV 94.7 fL (80.0-100.0); Mean Platelet Volume 7.7; Monocytes # (A) 0.4 k/uL (0-1.0); Monocytes % (A) 4 %; Neutrophils # (A) 9.2 k/uL (1.3-7.7); Neutrophils % (A) 88 %; Platelet Count 237 k/uL (150-450); RBC 4.43 m/uL (4.30-5.90); RDW 15.2 % (11.5-15.5); WBC 10.4 k/uL (3.8-10.6)
[2024-05-10 06:47] LABS: African American GFR (CKD) >90 (>60 ml/min/1.73 sqM); Blood Urea Nitrogen 11 mg/dL (9-20); Calcium 9.1 mg/dL (8.4-10.2); Chloride 88 mmol/L (98-107); Glucose 140 mg/dL (74-99); Magnesium 2.1 mg/dL (1.6-2.3); Non-African American GFR(CKD) >90 (>60 ml/min/1.73 sqM); Potassium 4.9 mmol/L (3.5-5.1); Sodium 132 mmol/L (137-145)
[2024-05-10 06:55] LABS: Anion Gap 8 mmol/L
[2024-05-10 06:56] LABS: Carbon Dioxide 36 mmol/L (22-30)
--- NOTE | 2024-05-10 07:18 | XR ---
EXAMINATION TYPE: XR chest 1V DATE OF EXAM: 05/10/2024 5:28 AM COMPARISON: Chest radiograph from one day prior. CLINICAL INDICATION: Male, 63 years old with history of COPD exacerbation; [facility] TECHNIQUE: XR chest 1V Frontal view of the chest. FINDINGS: Lungs/Pleura: Prominent interstitial lung markings are seen scattered throughout the lungs with radha ening of the diaphragm and increased lucency of the lung apices. No evidence of focal consolidation, pneumothorax or pleural effusion. Pulmonary vascularity: Unremarkable. Heart/mediastinum: Cardiomediastinal silhouette is unremarkable. Musculoskeletal: No acute osseous pathology. IMPRESSION: 1. No acute cardiopulmonary disease process. 2. COPD changes. [facility], , 05/10/2024 7:15 AM
--- NOTE | 2024-05-10 12:32 | P.PN ---
Subjective Progress Note Date: 05/10/24 Principal diagnosis: Acute exacerbation of COPD This is a 63-year-old white male with known history of severe COPD, normally sees Dr. Dowd on outpatient basis. Patient continues to smoke on the average of 6 cigarettes a day continues to drink alcohol on a daily basis about 12 beers a day. Patient is also known to have history of coronary artery disease and previous stent placement, hypertension, chronic atrial fibrillation, patient presented to the ER yesterday with few days history of increased shortness of breath, cough however wheezing. Patient required placement on BiPAP, patient was admitted to the ICU mostly because of his significant agitation and restlessness, and the plan was to consider placing the patient on Precedex if he does not improve with Ativan for alcohol withdrawal symptoms however the patient did not require to go on Precedex, he responded well to bronchodilators, and responded well to Ativan as needed. Patient was placed on the CIWA protocol. And I saw him this morning, seems to be doing much better, breathing a lot easier. Less cough less wheezing less shortness of breath, chest x-ray on this admission showed no evidence of acute cardiopulmonary process. It did show evidence of COPD. Looking back at recent CT of the chest from 03/03/2024, patient had obviously some stable pulmonary nodules and parenchymal scarring throughout the lungs. And again the patient is being monitored on outpatient basis by Dr. Dowd. Labs on this admission showed relatively normal electrolytes, normal renal profile, bicarb is 42, relatively normal CBC alcohol level on this admission was less than 10. Patient was seen today on 05/10/2024, patient is doing well today, feeling better, breathing easier, on 3 l nasal cannula, at night he was on BiPAP 04/17/40%. Patient is responding well to Ativan and to bronchodilators. He is on 0.9 normal saline at 50 cc/h still on Ativan as needed for withdrawal he is also on doxycycline Solu-Medrol DuoNeb and he is on NicoDerm. Considering the improvement today, I am planning to transfer the patient out of the ICU to a medical surgical floor. Objective - Vital Signs Vital signs: Vital Signs Temp 97.7 F 05/10/24 11:27 Pulse 82 05/10/24 12:14 Resp 18 05/10/24 11:27 BP 124/71 05/10/24 11:27 Pulse Ox 96 12/29/24 11:27 FiO2 40 05/10/24 02:34 Intake & Output 05/09/24 05/10/24 05/10/24 18:59 06:59 18:59 Intake Total 1130 2900 400 Output Total 1950 2225 250 Balance -820 675 150 Weight 67.8 kg Intake: IV 700 640 100 Dextrose 5%-0.45% NaCl 1, 300 000 ml @ 75 mls/hr IV . [id number] PRIYANKA Rx#:[id number] Invasive Line 1 20 Invasive Line 3 20 Sodium Chloride 0.9% 1, 400 600 100 000 ml @ 50 mls/hr IV . Q20H PRIYANKA Rx#:[id number] Oral 430 2260 300 Output: Urine 1949 2225 250 Other: Voiding Method Urinal Urinal Urinal # Voids 1 1 # Bowel Movements 1 1 - Exam GENERAL EXAM: Alert 63-year-old male, on 3 L nasal cannula. HEAD: Normocephalic. EYES: Normal reaction of pupils, equal size. NOSE: Clear with pink turbinates. THROAT: No erythema or exudates. NECK: No masses, no JVD. CHEST: No chest wall deformity. LUNGS: Mild wheezing on forced expiratory maneuver CVS: S1 and S2 normal with no audible murmur, regular rhythm. ABDOMEN: No hepatosplenomegaly, normal bowel sounds, no guarding or rigidity. SKIN: No rashes CENTRAL NERVOUS SYSTEM: Anxious, otherwise no gross focal deficit EXTREMITIES: T trace of lower extremity peripheral edema. No clubbing, no cyanosis. Peripheral pulses are intact. - Labs CBC & Chem 7: 05/10/24 05:34 05/10/24 05:34 Labs: Abnormal Lab Results - Last 24 Hours (Table) 05/10/24 05/10/24 Range/Units 05:34 05:34 Hgb 12.8 L (13.0-17.5) gm/dL MCHC 30.5 L (31.0-37.0) g/dL Neutrophils # 9.2 H (1.3-7.7) k/uL Lymphocytes # 0.7 L (1.0-4.8) k/uL Sodium 132 L (137-145) mmol/L Chloride 88 L (98-107) mmol/L Carbon Dioxide 36 H (22-30) mmol/L Creatinine 0.49 L (0.66-1.25) mg/dL Glucose 140 H (74-99) mg/dL Assessment and Plan Assessment: Impression Acute on chronic hypoxemic respiratory failure secondary to an acute exacerbation of chronic obstructive pulmonary disease Oxygen dependent COPD Obstructive sleep apnea utilizing CPAP Chronic and ongoing tobacco dependence Daily alcohol use, patient is on CIWA protocol Coronary artery disease with previous stent placements Peripheral vascular disease with femoral bypass History of atrial fibrillation Hypertension Hyperlipidemia Marijuana use Recommendation: Will transfer patient to medical surgical floor Continue bronchodilators, steroids, antibiotics chest x-ray showed no evidence of pneumonia Continue CIWA protocol GI and DVT prophylaxis Will continue to follow Time with Patient: Less than 30
--- NOTE | 2024-05-10 15:10 | P.PN ---
Subjective Progress Note Date: 05/10/24 Interval History: 63-year-old male patient with past medical history significant for severe COPD uses 3 L oxygen at baseline, current smoker, alcohol use disorder with up to 12 beers a day, atrial fibrillation, coronary artery disease, history of DVT, hypertension, hyperlipidemia, history of GI bleed, history of coronary artery disease with stent placement who presented to ER with a complaint of increased shortness of breath, cough and wheezing. Patient required BiPAP in the ED, was admitted to ICU as patient was significantly agitated and restless, there was concern as patient might need Precedex if did not improve with Ativan for alcohol withdrawal symptoms. Patient denied any fever or chills, reported increased productive cough. Patient denied any chest pain, palpitation, nausea vomiting diarrhea constipation abdominal pain dysuria urgency frequency weakness or numbness of the extremities. On admission patient was afebrile, heart rate and respiratory rate was normal, blood pressure was normal. Patient required BiPAP. Chest x-ray negative for any acute process, showed COPD changes. 05/10--patient was seen and examined today. Patient currently on 3 L nasal: Oxygen, feeling better today, tolerated BiPAP overnight. Withdrawal symptoms are well-controlled with Ativan, remains on bronchodilator, steroids. On normal saline 50 mL/h. Currently on doxycycline Solu-Medrol, nicotine patch. CBC unremarkable. BMP unremarkable, mildly low sodium 132. CO2 improved to 36. Normal creatinine and GFR. Assessment and plan: Acute on chronic hypoxic hypercapnic respiratory failure: Acute COPD exacerbation COPD: On 3 L oxygen at baseline Obstructive sleep apnea: On CPAP Ongoing tobacco use Alcohol use disorder Alcohol withdrawal syndrome: History of CAD with previous stenting Peripheral vascular disease with femoral bypass History of atrial fibrillation: On Eliquis Hypertension Hyperlipidemia Marijuana use Plan: Patient being monitored in the ICU, Pulmonary following Continue bronchodilator, steroids, antibiotics-doxycycline. Continue CIWA protocol, thiamine, folic acid, multivitamin. DVT prophylaxis AC Monitor vital signs and labs Labs and medication were reviewed. Continue same treatment. Further recommendations as per clinical course of the patient PHYSICAL EXAMINATION: GENERAL: The patient is A&O x3, NAD HEENT: EOMI, Sclerae anicteric, Moist Mucous membranes Neck: Supple, Non tender, No JVD PULMONARY: Decreased breath souds B/L, bilateral expiratory wheezing, No crackles. CARDIOVASCULAR: S1, S2 present. No murmurs, rubs, or gallops. ABDOMEN: Soft, nontender, nondistended, normoactive bowel sounds. No guarding or rebound tenderness. MUSCULOSKELETAL: No edema, No cyanosis. No clubbing. Normal ROM. Intact peripheral pulses. NEUROLOGICAL: CN 2-12 grossly intact. No FND Skin: No Rash REVIEW OF SYSTEMS: CONSTITUTIONAL: No fever or chills. CARDIOVASCULAR: No chest pain, palpitations or syncope. PULMONARY: Planes of shortness breath, cough. GASTROINTESTINAL: No nausea, vomiting, diarrhea, abdominal pain. : No Dysuria, urgency, frequency. Extremities: No edema. NEUROLOGICAL: No headaches, no weakness, or numbness Dictation was produced using [employer] dictation software. please excuse any grammatical, word or spelling errors. Objective - Vital Signs Vital signs: Vital Signs Temp 97.7 F 05/10/24 13:00 Pulse 64 05/10/24 13:00 Resp 18 05/10/24 13:00 BP 144/81 05/10/24 13:00 Pulse Ox 98 05/10/24 13:00 FiO2 40 05/10/24 02:34 Intake & Output 05/09/24 05/10/24 05/10/24 18:59 06:59 18:59 Intake Total 1130 2900 400 Output Total 1950 2225 1050 Balance -820 675 -650 Weight 67.8 kg Intake: IV 700 640 100 Dextrose 5%-0.45% NaCl 1, 300 000 ml @ 75 mls/hr IV . [id number] PRIYANKA Rx#:[id number] Invasive Line 1 20 Invasive Line 3 20 Sodium Chloride 0.9% 1, 400 600 100 000 ml @ 50 mls/hr IV . Q20H PRIYANKA Rx#:[id number] Oral 430 2260 300 Output: Urine 1950 2225 1050 Other: Voiding Method Urinal Urinal Urinal # Voids 1 1 # Bowel Movements 1 1 - Labs CBC & Chem 7: 05/10/24 05:34 05/10/24 05:34 Labs: Abnormal Lab Results - Last 24 Hours (Table) 05/10/24 05/10/24 Range/Units 05:34 05:34 Hgb 12.8 L (13.0-17.5) gm/dL MCHC 30.5 L (31.0-37.0) g/dL Neutrophils # 9.2 H (1.3-7.7) k/uL Lymphocytes # 0.7 L (1.0-4.8) k/uL Sodium 132 L (137-145) mmol/L Chloride 88 L (98-107) mmol/L Carbon Dioxide 36 H (22-30) mmol/L Creatinine 0.49 L (0.66-1.25) mg/dL Glucose 140 H (74-99) mg/dL
[2024-05-11 09:02] LABS: Blood Urea Nitrogen 10.9 mg/dL (9.0-27.0); Calcium 8.7 mg/dL (8.7-10.3); Carbon Dioxide 32.7 mmol/L (21.6-31.8); Chloride 95 mmol/L (96-109); Glucose 135 mg/dL (70-110); Potassium 4.1 mmol/L (3.5-5.5); Sodium 137 mmol/L (135-145)
[2024-05-11 09:20] LABS: HCT 38.2 % (39.6-50.0); HGB 12.2 g/dL (13.0-17.0); MCH 28.8 pg (27.0-32.0); MCHC 31.9 g/dL (32.0-37.0); MCV 90.1 FL (80.0-97.0); NRBC Per 100 WBC 0 X 10*3/uL (0.00-0.01); Platelet Count 232 X 10*3/uL (140-440); RBC 4.24 X 10*6/uL (4.40-5.60); RDW 16.3 % (11.5-14.5); WBC 11.75 X 10*3/uL (4.50-10.00)
[2024-05-11 09:21] LABS: Basophils # (A) 0.01 X 10*3/uL (0.00-0.10); Basophils % (A) 0.1 %; Eosinophils # (A) 0 X 10*3/uL (0.04-0.35); Eosinophils % (A) 0 %; Lymphocytes % (A) 4.3 %; Monocytes # (A) 0.53 X 10*3/uL (0.20-1.00); Monocytes % (A) 4.5 %; Neutrophils # (A) 10.65 X 10*3/uL (1.80-7.70); Neutrophils % (A) 90.6 %
--- NOTE | 2024-05-11 09:44 | XR ---
EXAMINATION TYPE: XR chest 1V DATE OF EXAM: 05/11/2024 6:39 AM COMPARISON: 05/10/2024 CLINICAL INDICATION: Male, 63 years old with history of COPD exacerbation, TECHNIQUE: XR chest 1V view(s) obtained. FINDINGS: The heart size is normal. The pulmonary vasculature is normal. Streak opacity is at the left base. Mild nonspecific right perihilar infiltrate is present. IMPRESSION: 1. Nonspecific increased lung markings at the left base right perihilar region. Atelectasis and pneum onia should be considered. Follow-up is recommended [facility] Brandy Kennedy, , 05/11/2024 9:42 AM
--- NOTE | 2024-05-11 13:57 | P.PN ---
Subjective Progress Note Date: 05/11/24 This is a 63-year-old white male with known history of severe COPD, normally sees Dr. Dowd on outpatient basis. Patient continues to smoke on the average of 6 cigarettes a day continues to drink alcohol on a daily basis about 12 beers a day. Patient is also known to have history of coronary artery disease and previous stent placement, hypertension, chronic atrial fibrillation, patient presented to the ER yesterday with few days history of increased shortness of breath, cough however wheezing. Patient required placement on BiPAP, patient was admitted to the ICU mostly because of his significant agitation and restlessness, and the plan was to consider placing the patient on Precedex if he does not improve with Ativan for alcohol withdrawal symptoms however the patient did not require to go on Precedex, he responded well to bronchodilators, and responded well to Ativan as needed. Patient was placed on the CIWA protocol. And I saw him this morning, seems to be doing much better, breathing a lot easier. Less cough less wheezing less shortness of breath, chest x-ray on this admission showed no evidence of acute cardiopulmonary process. It did show evidence of COPD. Looking back at recent CT of the chest from 03/03/2024, patient had obviously some stable pulmonary nodules and par enchymal scarring throughout the lungs. And again the patient is being monitored on outpatient basis by Dr. Dowd. Labs on this admission showed relatively normal electrolytes, normal renal profile, bicarb is 42, relatively normal CBC alcohol level on this admission was less than 10. Patient was seen today on 05/10/2024, patient is doing well today, feeling better, breathing easier, on 3 l nasal cannula, at night he was on BiPAP 04/17/40%. Patient is responding well to Ativan and to bronchodilators. He is on 0.9 normal saline at 50 cc/h still on Ativan as needed for withdrawal he is also on doxycycline Solu-Medrol DuoNeb and he is on NicoDerm. Considering the improvement today, I am planning to transfer the patient out of the ICU to a medical surgical floor. The patient is seen today May 11, 2024 in follow-up on the regular medical floor. He was transferred out of the intensive care unit yesterday. He is currently sitting up in bed. Awake and alert in no acute distress. Maintaining O2 saturations in the 90s on 3 L/min per nasal cannula. He is utilizing BiPAP throughout the night 04/17 and 40% FiO2. He has normal saline at 50 mL/h. Chest x-ray reveals nonspecific lung markings at the left lung base and right perihilar lesion. Atelectasis most likely. White count 11.7. Hemoglobin 12.2. Platelets 232. Sodium 137. Potassium 4.1. Bicarb 33. BUN 11. Creatinine 0.5. Glucose 135. He is continued on DuoNeb inhalations, Pulmicort and performance inhalations, IV Solu-Medrol. NicoDerm patch in place. Anticoagulated with Eliquis. Empiric antibiotics in the form of doxycycline. Objective - Vital Signs Vital signs: Vital Signs Temp 97.2 F L 05/11/24 12:20 Pulse 81 05/11/24 12:20 Resp 18 05/11/24 12:20 BP 135/78 05/11/24 12:20 Pulse Ox 90 L 05/11/24 12:20 FiO2 40 05/10/24 02:34 Intake & Output 05/10/24 05/11/24 05/11/24 18:59 06:59 18:59 Intake Total 1960 1200 Output Total 1650 2100 Balance 310 -900 Intake: IV 100 Sodium Chloride 0.9% 1, 100 000 ml @ 50 mls/hr IV . Q20H PRIYANKA Rx#:[id number] Intake, IV Titration 600 Amount Sodium Chloride 0.9% 1, 600 000 ml @ 50 mls/hr IV . Q20H PRIYANKA Rx#:[id number] Oral 1860 600 Output: Urine 1650 2100 Other: Voiding Method Urinal Urinal # Voids 1 # Bowel Movements 1 - Exam GENERAL EXAM: Alert, disheveled 63-year-old male, on 3 L nasal cannula, comfortable in no apparent distress. HEAD: Normocephalic. EYES: Normal reaction of pupils, equal size. NOSE: Clear with pink turbinates. THROAT: No erythema or exudates. NECK: No masses, no JVD. CHEST: No chest wall deformity. LUNGS: Equal air entry with bilateral scattered rhonchi. CVS: S1 and S2 normal with no audible murmur, regular rhythm. ABDOMEN: No hepatosplenomegaly, normal bowel sounds, no guarding or rigidity. SPINE: No scoliosis or deformity SKIN: No rashes CENTRAL NERVOUS SYSTEM: No focal deficits, tone is normal in all 4 extremities. EXTREMITIES: There is no peripheral edema. No clubbing, no cyanosis. Peripheral pulses are intact. - Labs CBC & Chem 7: 05/11/24 04:33 05/11/24 04:33 Labs: Abnormal Lab Results - Last 24 Hours (Table) 05/11/24 05/11/24 Range/Units 04:33 04:33 WBC 11.75 H (4.50-10.00) X 10*3/uL RBC 4.24 L (4.40-5.60) X 10*6/uL Hgb 12.2 L (13.0-17.0) g/dL Hct 38.2 L (39.6-50.0) % MCHC 31.9 L (32.0-37.0) g/dL RDW 16.3 H (11.5-14.5) % Immature Gran # 0.06 H (0.00-0.04) X 10*3/uL Neutrophils # 10.65 H (1.80-7.70) X 10*3/uL Lymphocytes # 0.50 L (0.90-5.00) X 10*3/uL Eosinophils # 0 L (0.04-0.35) X 10*3/uL Chloride 95 L (96-109) mmol/L Carbon Dioxide 32.7 H (21.6-31.8) mmol/L Creatinine 0.5 L (0.6-1.5) mg/dL BUN/Creatinine Ratio 21.80 H (12.00-20.00) Ratio Glucose 135 H (70-110) mg/dL Assessment and Plan Assessment: Acute on chronic hypoxemic respiratory failure secondary to an acute exacerbation of chronic obstructive pulmonary disease Oxygen dependent COPD Obstructive sleep apnea utilizing CPAP Chronic and ongoing tobacco dependence Daily alcohol use, patient is on CIMN protocol Coronary artery disease with previous stent placements Peripheral vascular disease with femoral bypass History of atrial fibrillation anticoagulated with Eliquis Hypertension Hyperlipidemia Marijuana use Plan: The patient was seen and evaluated Chest x-ray, labs and medications reviewed Currently on oxygen at 3 L/min per nasal cannula Utilizing BiPAP as needed Continue bronchodilators and steroids Anticoagulated with Eliquis Empiric antibiotics in the form of doxycycline Titrate the FiO2 as tolerated I have personally seen and examined the patient, performed the documentation and the assessment and plan as written. Number of minutes spent on the visit: 25 Dictation was produced using [employer] dictation software. Please excuse any grammatical, word or spelling errors.
--- NOTE | 2024-05-11 15:49 | P.PN ---
Subjective Interval History: 63-year-old male patient with past medical history significant for severe COPD uses 3 L oxygen at baseline, current smoker, alcohol use disorder with up to 12 beers a day, atrial fibrillation, coronary artery disease, history of DVT, hypertension, hyperlipidemia, history of GI bleed, history of coronary artery disease with stent placement who presented to ER with a complaint of increased shortness of breath, cough and wheezing. Patient required BiPAP in the ED, was admitted to ICU as patient was significantly agitated and restless, there was concern as patient might need Precedex if did not improve with Ativan for alcohol withdrawal symptoms. Patient denied any fever or chills, reported increased productive cough. Patient denied any chest pain, palpitation, nausea vomiting diarrhea constipation abdominal pain dysuria urgency frequency weakness or numbness of the extremities. On admission patient was afebrile, heart rate and respiratory rate was normal, blood pressure was normal. Patient required BiPAP. Chest x-ray negative for any acute process, showed COPD changes. 05/10--patient was seen and examined today. Patient currently on 3 L nasal: Oxygen, feeling better today, tolerated BiPAP overnight. Withdrawal symptoms are well-controlled with Ativan, remains on bronchodilator, steroids. On normal saline 50 mL/h. Currently on doxycycline Solu-Medrol, nicotine patch. CBC unremarkable. BMP unremarkable, mildly low sodium 132. CO2 improved to 36. Normal creatinine and GFR. 05/11--- patient was seen and examined today. Currently 2 L oxygen. Afebrile, blood pressure normal. Respiratory rate 18. Still requiring Ativan per CIWA protocol. WBCs 11.7, hemoglobin 12.2, platelet 223 2. BMP unremarkable, CO2 trending down to 32.7. Tolerated BiPAP throughout the night, on 40% FiO2. Continue doxycycline. Pulmonary following. Assessment and plan: Acute on chronic hypoxic hypercapnic respiratory failure: Acute COPD exacerbation COPD: On 3 L oxygen at baseline Obstructive sleep apnea: On CPAP Ongoing tobacco use Alcohol use disorder Alcohol withdrawal syndrome: History of CAD with previous stenting Peripheral vascular disease with femoral bypass History of atrial fibrillation: On Eliquis Hypertension Hyperlipidemia Marijuana use Plan: Patient being monitored in the ICU, Pulmonary following Continue bronchodilator, steroids, antibiotics-doxycycline. Continue CIWA protocol, thiamine, folic acid, multivitamin. DVT prophylaxis AC Monitor vital signs and labs Labs and medication were reviewed. Continue same treatment. Further recommendations as per clinical course of the patient PHYSICAL EXAMINATION: GENERAL: The patient is A&O x3, NAD HEENT: EOMI, Sclerae anicteric, Moist Mucous membranes Neck: Supple, Non tender, No JVD PULMONARY: Decreased breath souds B/L, bilateral expiratory wheezing, No crackles. CARDIOVASCULAR: S1, S2 present. No murmurs, rubs, or gallops. ABDOMEN: Soft, nontender, nondistended, normoactive bowel sounds. No guarding or rebound tenderness. MUSCULOSKELETAL: No edema, No cyanosis. No clubbing. Normal ROM. Intact peripheral pulses. NEUROLOGICAL: CN 2-12 grossly intact. No FND Skin: No Rash REVIEW OF SYSTEMS: CONSTITUTIONAL: No fever or chills. CARDIOVASCULAR: No chest pain, palpitations or syncope. PULMONARY: c/o of shortness breath, cough. GASTROINTESTINAL: No nausea, vomiting, diarrhea, abdominal pain. : No Dysuria, urgency, frequency. Extremities: No edema. NEUROLOGICAL: No headaches, no weakness, or numbness Dictation was produced using [employer] dictation software. please excuse any grammatical, word or spelling errors. Objective - Vital Signs Vital signs: Vital Signs Temp 97.2 F L 05/11/24 12:20 Pulse 81 05/11/24 12:20 Resp 18 05/11/24 12:20 BP 135/78 05/11/24 12:20 Pulse Ox 90 L 05/11/24 12:20 FiO2 40 05/10/24 02:34 Intake & Output 05/10/24 05/11/24 05/11/24 18:59 06:59 18:59 Intake Total 1960 1200 Output Total 1650 2100 Balance 310 -900 Intake: IV 100 Sodium Chloride 0.9% 1, 100 000 ml @ 50 mls/hr IV . Q20H PRIYANKA Rx#:[id number] Intake, IV Titration 600 Amount Sodium Chloride 0.9% 1, 600 000 ml @ 50 mls/hr IV . Q20H PRIYANKA Rx#:[id number] Oral 1860 600 Output: Urine 1650 2100 Other: Voiding Method Urinal Urinal # Voids 1 # Bowel Movements 1 - Labs CBC & Chem 7: 05/11/24 04:33 05/11/24 04:33 Labs: Abnormal Lab Results - Last 24 Hours (Table) 05/11/24 05/11/24 Range/Units 04:33 04:33 WBC 11.75 H (4.50-10.00) X 10*3/uL RBC 4.24 L (4.40-5.60) X 10*6/uL Hgb 12.2 L (13.0-17.0) g/dL Hct 38.2 L (39.6-50.0) % MCHC 31.9 L (32.0-37.0) g/dL RDW 16.3 H (11.5-14.5) % Immature Gran # 0.06 H (0.00-0.04) X 10*3/uL Neutrophils # 10.65 H (1.80-7.70) X 10*3/uL Lymphocytes # 0.50 L (0.90-5.00) X 10*3/uL Eosinophils # 0 L (0.04-0.35) X 10*3/uL Chloride 95 L (96-109) mmol/L Carbon Dioxide 32.7 H (21.6-31.8) mmol/L Creatinine 0.5 L (0.6-1.5) mg/dL BUN/Creatinine Ratio 21.80 H (12.00-20.00) Ratio Glucose 135 H (70-110) mg/dL
[2024-05-12 08:55] LABS: Blood Urea Nitrogen 12.4 mg/dL (9.0-27.0); Calcium 8.6 mg/dL (8.7-10.3); Carbon Dioxide 31.7 mmol/L (21.6-31.8); Chloride 96 mmol/L (96-109); Glucose 129 mg/dL (70-110); Potassium 3.9 mmol/L (3.5-5.5); Sodium 135 mmol/L (135-145)
[2024-05-12 09:07] LABS: Basophils # (A) 0.01 X 10*3/uL (0.00-0.10); Basophils % (A) 0.1 %; Eosinophils # (A) 0 X 10*3/uL (0.04-0.35); Eosinophils % (A) 0 %; HCT 40.7 % (39.6-50.0); HGB 12.7 g/dL (13.0-17.0); Lymphocytes # (A) 0.39 X 10*3/uL (0.90-5.00); MCH 28.7 pg (27.0-32.0); MCHC 31.2 g/dL (32.0-37.0); MCV 92.1 FL (80.0-97.0); Mean Platelet Volume 10.2 FL (9.5-12.2); Monocytes % (A) 4.1 %; NRBC Per 100 WBC 0 X 10*3/uL (0.00-0.01); Neutrophils # (A) 9.02 X 10*3/uL (1.80-7.70); Neutrophils % (A) 91.4 %; Platelet Count 224 X 10*3/uL (140-440); RBC 4.42 X 10*6/uL (4.40-5.60); RDW 16.4 % (11.5-14.5); WBC 9.86 X 10*3/uL (4.50-10.00)
[2024-05-12] MEDS: predniSONE 20 MG TAB PO SCH (09:17)
--- NOTE | 2024-05-12 14:24 | P.PN ---
Subjective Progress Note Date: 05/12/24 This is a 63-year-old white male with known history of severe COPD, normally sees Dr. Dowd on outpatient basis. Patient continues to smoke on the average of 6 cigarettes a day continues to drink alcohol on a daily basis about 12 beers a day. Patient is also known to have history of coronary artery disease and previous stent placement, hypertension, chronic atrial fibrillation, patient presented to the ER yesterday with few days history of increased shortness of breath, cough however wheezing. Patient required placement on BiPAP, patient was admitted to the ICU mostly because of his significant agitation and restlessness, and the plan was to consider placing the patient on Precedex if he does not improve with Ativan for alcohol withdrawal symptoms however the patient did not require to go on Precedex, he responded well to bronchodilators, and responded well to Ativan as needed. Patient was placed on the CIWA protocol. And I saw him this morning, seems to be doing much better, breathing a lot easier. Less cough less wheezing less shortness of breath, chest x-ray on this admission showed no evidence of acute cardiopulmonary process. It did show evidence of COPD. Looking back at recent CT of the chest from 03/03/2024, patient had obviously some stable pulmonary nodules and par enchymal scarring throughout the lungs. And again the patient is being monitored on outpatient basis by Dr. Dowd. Labs on this admission showed relatively normal electrolytes, normal renal profile, bicarb is 42, relatively normal CBC alcohol level on this admission was less than 10. Patient was seen today on 05/10/2024, patient is doing well today, feeling better, breathing easier, on 3 l nasal cannula, at night he was on BiPAP 04/17/40%. Patient is responding well to Ativan and to bronchodilators. He is on 0.9 normal saline at 50 cc/h still on Ativan as needed for withdrawal he is also on doxycycline Solu-Medrol DuoNeb and he is on NicoDerm. Considering the improvement today, I am planning to transfer the patient out of the ICU to a medical surgical floor. The patient is seen today May 11, 2024 in follow-up on the regular medical floor. He was transferred out of the intensive care unit yesterday. He is currently sitting up in bed. Awake and alert in no acute distress. Maintaining O2 saturations in the 90s on 3 L/min per nasal cannula. He is utilizing BiPAP throughout the night 12/6 and 40% FiO2. He has normal saline at 50 mL/h. Chest x-ray reveals nonspecific lung markings at the left lung base and right perihilar lesion. Atelectasis most likely. White count 11.7. Hemoglobin 12.2. Platelets 232. Sodium 137. Potassium 4.1. Bicarb 33. BUN 11. Creatinine 0.5. Glucose 135. He is continued on DuoNeb inhalations, Pulmicort and performance inhalations, IV Solu-Medrol. NicoDerm patch in place. Anticoagulated with Eliquis. Empiric antibiotics in the form of doxycycline. The patient is seen today May 12, 2024 in follow-up on the regular medical floor. He is currently sitting up in a chair at the bedside. Awake and alert in no acute distress. He is still needing 3 L/min per nasal cannula to maintain O2 saturation in the low 90s. He did utilize BiPAP 12/6 and 40% FiO2 throughout the night. He remains on DuoNeb inhalations, Pulmicort and Perforomist inhalations, Solu-Medrol. NicoDerm patch in place. Anticoagulated with Eliquis. White count 9.8. Hemoglobin 12.7. Platelets 224. Sodium 135. Potassium 3.9. Bicarb 32. BUN 12. Creatinine 0.5. Glucose 129. Procalcitonin was negative at 0.03. Objective - Vital Signs Vital signs: Vital Signs Temp 98.3 F 05/12/24 08:00 Pulse 70 05/12/24 11:12 Resp 16 05/12/24 08:00 BP 163/87 05/12/24 08:00 Pulse Ox 96 05/12/24 08:00 FiO2 40 05/12/24 03:45 Intake & Output 05/11/24 05/12/24 05/12/24 18:59 06:59 18:59 Intake Total 1140 236 Output Total 2200 Balance -1060 236 Intake: Intake, IV Titration 600 Amount Sodium Chloride 0.9% 1, 600 000 ml @ 50 mls/hr IV . Q20H [facility] Rx#:[id number] Oral 540 236 Output: Urine 2200 Other: Voiding Method Urinal Urinal - Exam GENERAL EXAM: Alert, 63-year-old male, sitting up in a chair, on 3 L nasal cannula, in no apparent distress. HEAD: Normocephalic. EYES: Normal reaction of pupils, equal size. NOSE: Clear with pink turbinates. THROAT: No erythema or exudates. NECK: No masses, no JVD. CHEST: No chest wall deformity. LUNGS: Equal air entry with bilateral scattered rhonchi. CVS: S1 and S2 normal with no audible murmur, regular rhythm. ABDOMEN: No hepatosplenomegaly, normal bowel sounds, no guarding or rigidity. SPINE: No scoliosis or deformity SKIN: No rashes CENTRAL NERVOUS SYSTEM: No focal deficits, tone is normal in all 4 extremities. EXTREMITIES: There is no peripheral edema. No clubbing, no cyanosis. Peripheral pulses are intact. - Labs CBC & Chem 7: 05/12/24 04:14 05/12/24 04:14 Labs: Abnormal Lab Results - Last 24 Hours (Table) 05/12/24 05/12/24 Range/Units 04:14 04:14 Hgb 12.7 L (13.0-17.0) g/dL MCHC 31.2 L (32.0-37.0) g/dL RDW 16.4 H (11.5-14.5) % Neutrophils # 9.02 H (1.80-7.70) X 10*3/uL Lymphocytes # 0.39 L (0.90-5.00) X 10*3/uL Eosinophils # 0 L (0.04-0.35) X 10*3/uL Creatinine 0.5 L (0.6-1.5) mg/dL BUN/Creatinine Ratio 24.80 H (12.00-20.00) Ratio Glucose 129 H (70-110) mg/dL Calcium 8.6 L (8.7-10.3) mg/dL Assessment and Plan Assessment: Acute on chronic hypoxemic respiratory failure secondary to an acute ex acerbation of chronic obstructive pulmonary disease. Procalcitonin negative Oxygen dependent COPD Obstructive sleep apnea utilizing CPAP Chronic and ongoing tobacco dependence Daily alcohol use, patient is on CIWA protocol Coronary artery disease with previous stent placements Peripheral vascular disease with femoral bypass History of atrial fibrillation anticoagulated with Eliquis Hypertension Hyperlipidemia Marijuana use Plan: The patient was seen and evaluated Labs and medications reviewed Procalcitonin negative Discontinued doxycycline Discontinue Solu-Medrol Initiated a prednisone taper Discontinued Pulmicort and Perforomist inhalations Initiated Symbicort On oxygen at 3 L/min per nasal cannula Utilizing BiPAP as needed Titrate the FiO2 as tolerated Possible discharge in the a.m. This patient was seen independently by the pulmonary nurse practitioner addressing pulmonary issues I have personally seen and examined the patient, performed the documentation and the assessment and plan as written. Number of minutes spent on the visit: 24 Dictation was produced using [employer] dictation software. Please excuse any grammatical, word or spelling errors.
--- NOTE | 2024-05-12 14:43 | P.PN ---
Subjective Interval History: 63-year-old male patient with past medical history significant for severe COPD uses 3 L oxygen at baseline, current smoker, alcohol use disorder with up to 12 beers a day, atrial fibrillation, coronary artery disease, history of DVT, hypertension, hyperlipidemia, history of GI bleed, history of coronary artery disease with stent placement who presented to ER with a complaint of increased shortness of breath, cough and wheezing. Patient required BiPAP in the ED, was admitted to ICU as patient was significantly agitated and restless, there was concern as patient might need Precedex if did not improve with Ativan for alcohol withdrawal symptoms. Patient denied any fever or chills, reported increased productive cough. Patient denied any chest pain, palpitation, nausea vomiting diarrhea constipation abdominal pain dysuria urgency frequency weakness or numbness of the extremities. On admission patient was afebrile, heart rate and respiratory rate was normal, blood pressure was normal. Patient required BiPAP. Chest x-ray negative for any acute process, showed COPD changes. 05/10--patient was seen and examined today. Patient currently on 3 L nasal: Oxygen, feeling better today, tolerated BiPAP overnight. Withdrawal symptoms are well-controlled with Ativan, remains on bronchodilator, steroids. On normal saline 50 mL/h. Currently on doxycycline Solu-Medrol, nicotine patch. CBC unremarkable. BMP unremarkable, mildly low sodium 132. CO2 improved to 36. Normal creatinine and GFR. 05/11--- patient was seen and examined today. Currently 2 L oxygen. Afebrile, blood pressure normal. Respiratory rate 18. Still requiring Ativan per [facility] protocol. WBCs 11.7, hemoglobin 12.2, platelet 223 2. BMP unremarkable, CO2 trending down to 32.7. Tolerated BiPAP throughout the night, on 40% FiO2. Continue doxycycline. Pulmonary following. 05/12--patient was seen and examined today. Patient feeling better today. Remains on 3 L oxygen, used BiPAP overnight. Pulmonary following, finished doxycycline Solu-Medrol, started on prednisone taper. WBCs 9.8, hemoglobin 12.7, platelet 224. BMP unremarkable. Procalcitonin negative. Assessment and plan: Acute on chronic hypoxic hypercapnic respiratory failure: Acute COPD exacerbation COPD: On 3 L oxygen at baseline Obstructive sleep apnea: On CPAP Ongoing tobacco use Alcohol use disorder Alcohol withdrawal syndrome: History of CAD with previous stenting Peripheral vascular disease with femoral bypass History of atrial fibrillation: On Eliquis Hypertension Hyperlipidemia Marijuana use Plan: Patient being monitored in the ICU, Pulmonary following Continue bronchodilator, steroids, antibiotics-doxycycline--finished. Continue CIWA protocol, thiamine, folic acid, multivitamin. DVT prophylaxis AC Monitor vital signs and labs Labs and medication were reviewed. Continue same treatment. Further recommendations as per clinical course of the patient PHYSICAL EXAMINATION: GENERAL: The patient is A&O x3, NAD HEENT: EOMI, Sclerae anicteric, Moist Mucous membranes Neck: Supple, Non tender, No JVD PULMONARY: Decreased breath souds B/L, bilateral expiratory wheezing, No crackles. CARDIOVASCULAR: S1, S2 present. No murmurs, rubs, or gallops. ABDOMEN: Soft, nontender, nondistended, normoactive bowel sounds. No guarding or rebound tenderness. MUSCULOSKELETAL: No edema, No cyanosis. No clubbing. Normal ROM. Intact peripheral pulses. NEUROLOGICAL: CN 2-12 grossly intact. No FND Skin: No Rash REVIEW OF SYSTEMS: CONSTITUTIONAL: No fever or chills. CARDIOVASCULAR: No chest pain, palpitations or syncope. PULMONARY: c/o of shortness breath, cough. GASTROINTESTINAL: No nausea, vomiting, diarrhea, abdominal pain. : No Dysuria, urgency, frequency. Extremities: No edema. NEUROLOGICAL: No headaches, no weakness, or numbness Dictation was produced using [employer] dictation software. please excuse any grammatical, word or spelling errors. Objective - Vital Signs Vital signs: Vital Signs Temp 98.3 F 05/12/24 08:00 Pulse 70 05/12/24 11:12 Resp 16 05/12/24 08:00 BP 163/87 05/12/24 08:00 Pulse Ox 96 05/12/24 08:00 FiO2 40 05/12/24 03:45 Intake & Output 05/11/24 05/12/24 05/12/24 18:59 06:59 18:59 Intake Total 1140 236 Output Total 2200 Balance -1060 236 Intake: Intake, IV Titration 600 Amount Sodium Chloride 0.9% 1, 600 000 ml @ 50 mls/hr IV . Q20H [facility] Rx#:[id number] Oral 540 236 Output: Urine 2200 Other: Voiding Method Urinal Urinal - Labs CBC & Chem 7: 05/12/24 04:14 05/12/24 04:14 Labs: Abnormal Lab Results - Last 24 Hours (Table) 05/12/24 05/12/24 Range/Units 04:14 04:14 Hgb 12.7 L (13.0-17.0) g/dL MCHC 31.2 L (32.0-37.0) g/dL RDW 16.4 H (11.5-14.5) % Neutrophils # 9.02 H (1.80-7.70) X 10*3/uL Lymphocytes # 0.39 L (0.90-5.00) X 10*3/uL Eosinophils # 0 L (0.04-0.35) X 10*3/uL Creatinine 0.5 L (0.6-1.5) mg/dL BUN/Creatinine Ratio 24.80 H (12.00-20.00) Ratio Glucose 129 H (70-110) mg/dL Calcium 8.6 L (8.7-10.3) mg/dL
[2024-05-12] MEDS: SYMBICORT 160-4.5 MCG INHALER INHALATION SCH (19:59)
[2024-05-13 08:14] VITALS: RESP 16
--- NOTE | 2024-05-13 13:00 | P.PN ---
Subjective Progress Note Date: 05/13/24 This is a 63-year-old white male with known history of severe COPD, normally sees Dr. Dowd on outpatient basis. Patient continues to smoke on the average of 6 cigarettes a day continues to drink alcohol on a daily basis about 12 beers a day. Patient is also known to have history of coronary artery disease and previous stent placement, hypertension, chronic atrial fibrillation, patient presented to the ER yesterday with few days history of increased shortness of breath, cough however wheezing. Patient required placement on BiPAP, patient was admitted to the ICU mostly because of his significant agitation and restlessness, and the plan was to consider placing the patient on Precedex if he does not improve with Ativan for alcohol withdrawal symptoms however the patient did not require to go on Precedex, he responded well to bronchodilators, and responded well to Ativan as needed. Patient was placed on the CIWA protocol. And I saw him this morning, seems to be doing much better, breathing a lot easier. Less cough less wheezing less shortness of breath, chest x-ray on this admission showed no evidence of acute cardiopulmonary process. It did show evidence of COPD. Looking back at recent CT of the chest from 03/03/2024, patient had obviously some stable pulmonary nodules and par enchymal scarring throughout the lungs. And again the patient is being monitored on outpatient basis by Dr. Dodw. Labs on this admission showed relatively normal electrolytes, normal renal profile, bicarb is 42, relatively normal CBC alcohol level on this admission was less than 10. Patient was seen today on 05/10/2024, patient is doing well today, feeling better, breathing easier, on 3 l nasal cannula, at night he was on BiPAP 04/17/40%. Patient is responding well to Ativan and to bronchodilators. He is on 0.9 normal saline at 50 cc/h still on Ativan as needed for withdrawal he is also on doxycycline Solu-Medrol DuoNeb and he is on NicoDerm. Considering the improvement today, I am planning to transfer the patient out of the ICU to a medical surgical floor. The patient is seen today May 11, 2024 in follow-up on the regular medical floor. He was transferred out of the intensive care unit yesterday. He is currently sitting up in bed. Awake and alert in no acute distress. Maintaining O2 saturations in the 90s on 3 L/min per nasal cannula. He is utilizing BiPAP throughout the night 12/6 and 40% FiO2. He has normal saline at 50 mL/h. Chest x-ray reveals nonspecific lung markings at the left lung base and right perihilar lesion. Atelectasis most likely. White count 11.7. Hemoglobin 12.2. Platelets 232. Sodium 137. Potassium 4.1. Bicarb 33. BUN 11. Creatinine 0.5. Glucose 135. He is continued on DuoNeb inhalations, Pulmicort and performance inhalations, IV Solu-Medrol. NicoDerm patch in place. Anticoagulated with Eliquis. Empiric antibiotics in the form of doxycycline. The patient is seen today May 12, 2024 in follow-up on the regular medical floor. He is currently sitting up in a chair at the bedside. Awake and alert in no acute distress. He is still needing 3 L/min per nasal cannula to maintain O2 saturation in the low 90s. He did utilize BiPAP 12/6 and 40% FiO2 throughout the night. He remains on DuoNeb inhalations, Pulmicort and Perforomist inhalations, Solu-Medrol. NicoDerm patch in place. Anticoagulated with Eliquis. White count 9.8. Hemoglobin 12.7. Platelets 224. Sodium 135. Potassium 3.9. Bicarb 32. BUN 12. Creatinine 0.5. Glucose 129. Procalcitonin was negative at 0.03. The patient is seen today May 13, 2023 in follow-up on the regular medical floor. He is currently sitting up in bed. Awake and alert in no acute distress. Maintaining good O2 saturations in the 90s on 3 L/min per nasal can nula. He has normal staying at 50 mL/h. He is continued on DuoNeb inhalations, Symbicort, prednisone taper. Anticoagulated with Eliquis. NicoDerm patch in place. His procalcitonin was negative at 0.03. Objective - Vital Signs Vital signs: Vital Signs Temp 98.0 F 05/13/24 08:00 Pulse 92 05/13/24 12:41 Resp 16 05/13/24 08:00 BP 160/97 05/13/24 08:00 Pulse Ox 90 L 05/13/24 08:00 FiO2 40 01/01/25 04:00 Intake & Output 05/12/24 05/13/24 05/13/24 18:59 06:59 18:59 Intake Total 236 222 480 Output Total 220 2600 Balance 16 -2378 480 Intake: Oral 236 222 480 Output: Urine 220 2600 Other: Voiding Method Urinal Urinal Urinal - Exam GENERAL EXAM: Alert, pleasant 63-year-old male, on 3 L nasal cannula, in no apparent distress. HEAD: Normocephalic. EYES: Normal reaction of pupils, equal size. NOSE: Clear with pink turbinates. THROAT: No erythema or exudates. NECK: No masses, no JVD. CHEST: No chest wall deformity. LUNGS: Equal air entry with bilateral scattered rhonchi. CVS: S1 and S2 normal with no audible murmur, regular rhythm. ABDOMEN: No hepatosplenomegaly, normal bowel sounds, no guarding or rigidity. SPINE: No scoliosis or deformity SKIN: No rashes CENTRAL NERVOUS SYSTEM: No focal deficits, tone is normal in all 4 extremities. EXTREMITIES: There is no peripheral edema. No clubbing, no cyanosis. Peripheral pulses are intact. - Labs CBC & Chem 7: 05/12/24 04:14 05/12/24 04:14 Assessment and Plan Assessment: Acute on chronic hypoxemic respiratory failure secondary to an acute exacerbation of chronic obstructive pulmonary disease. Procalcitonin negative Oxygen dependent COPD Obstructive sleep apnea utilizing CPAP Chronic and ongoing tobacco dependence Daily alcohol use, patient is on CIWA protocol Coronary artery disease with previous stent placements Peripheral vascular disease with femoral bypass History of atrial fibrillation anticoagulated with Eliquis Hypertension Hyperlipidemia Marijuana use Plan: The patient was seen and evaluated Medications reviewed Cleared for discharge from the pulmonary standpoint Continue his home oxygen, pulmonary medications Complete a prednisone taper Educated regarding complete smoking cessation NicoDerm patch in place Follow-up in our office in 1 week This patient was seen independently by the pulmonary nurse practitioner addressing pulmonary issues I have personally seen and examined the patient, performed the documentation and the assessment and plan as written. Number of minutes spent on the visit: 23 Dictation was produced using [employer] dictation software. Please excuse any grammatical, word or spelling errors.
[2024-05-13 13:43] VITALS: BP 119/75; PULSE 72; TEMP 98.3
--- NOTE | 2024-05-13 13:44 | P.DS ---
Providers Date of admission: 05/08/24 19:44 Expected date of discharge: 05/13/24 Attending physician: Ryan Buck MD Consults: 05/08/24 19:44 Consult Physician Stat Consulting Provider: Cielo Gomez Consult Reason/Comments: COPD exac. EtoH withdrawal Do you want consulting provider notified?: Already Contacted Primary care physician: Ashlyn Toro Hospital Course: Discharge diagnoses: Acute on chronic hypoxic hypercapnic respiratory failure: Acute COPD exacerbation COPD: On 3 L oxygen at baseline Obstructive sleep apnea: On CPAP Ongoing tobacco use Alcohol use disorder Alcohol withdrawal syndrome: History of CAD with previous stenting Peripheral vascular disease with femoral bypass History of atrial fibrillation: On Eliquis Hypertension Hyperlipidemia Marijuana use Plan: Continue home inhalers, prednisone taper at discharge. Finished antibiotics during hospitalization Pulmonary consulted, recommended outpatient follow-up Outpatient follow-up with sleep clinic to qualify for BiPAP. Patient was initially admitted to ICU, due to concern for severe withdrawal and concern for may need Precedex. Patient's withdrawal symptoms later on remained stable. Patient tolerated BiPAP Nightly. Patient treated wit inhaler/bronchodilator protocol, steroids during hospitalization, also received antibiotic doxycycline. Patient also monitored with CIWA protocol, treated with thiamine folic acid and multivitamin. Pulmonary was consulted. Patient condition and vitals stable, symptoms improved. Okay to discharge per pulmonary and outpatient follow-up with pulmonary, outpatient follow-up with sleep to evaluate for BiPAP. Patient continued on prednisone taper at discharge. Hospital course: 63-year-old male patient with past medical history significant for severe COPD uses 3 L oxygen at baseline, current smoker, alcohol use disorder with up to 12 beers a day, atrial fibrillation, coronary artery disease, history of DVT, hypertension, hyperlipidemia, history of GI bleed, history of coronary artery disease with stent placement who presented to ER with a complaint of increased shortness of breath, cough and wheezing. Patient required BiPAP in the ED, was admitted to ICU as patient was significantly agitated and restless, there was concern as patient might need Precedex if did not improve with Ativan for alcohol withdrawal symptoms. Patient denied any fever or chills, reported increased productive cough. Patient denied any chest pain, palpitation, nausea vomiting diarrhea constipation abdominal pain dysuria urgency frequency weakness or numbness of the extremities. On admission patient was afebrile, heart rate and respiratory rate was normal, blood pressure was normal. Patient required BiPAP. Chest x-ray negative for any acute process, showed COPD changes. Patient was initially admitted to ICU, due to concern for severe withdrawal and concern for may need Precedex. Patient's withdrawal symptoms later on remained stable. Patient tolerated BiPAP Nightly. Patient treated wit inhaler/bronchodilator protocol, steroids during hospitalization, also received antibiotic doxycycline. Patient also monitored with CIWA protocol, treated with thiamine folic acid and multivitamin. Pulmonary was consulted. Patient condition and vitals stable, symptoms improved. Okay to discharge per pulmonary and outpatient follow-up with pulmonary, outpatient follow-up with sleep to evaluate for BiPAP. Patient continued on prednisone taper at discharge. PHYSICAL EXAMINATION: GENERAL: The patient is A&O x3, NAD HEENT: EOMI, Sclerae anicteric, Moist Mucous membranes Neck: Supple, Non tender, No JVD PULMONARY: Equal breath souds B/L, No wheezing, No crackles. CARDIOVASCULAR: S1, S2 present. No murmurs, rubs, or gallops. ABDOMEN: Soft, nontender, nondistended, normoactive bowel sounds. No guarding or rebound tenderness. MUSCULOSKELETAL: No edema, No cyanosis. No clubbing. Normal ROM. Intact peripheral pulses. NEUROLOGICAL: CN 2-12 grossly intact. No FND SKIN: No rashes. Dictation was produced using [employer] dictation software. please excuse any grammatical, word or spelling errors. Patient Condition at Discharge: Fair Plan - Discharge Summary Discharge Rx Participant: No New Discharge Prescriptions: New Thiamine [Vitamin B-1] 100 mg PO DAILY #30 tablet Multivitamins, Thera [Multivitamin (formulary)] 1 each PO DAILY #30 tab predniSONE 10 mg PO DAILY #20 tab Continue Metoprolol Tartrate 25 mg PO BID Atorvastatin Calcium [Lipitor] 80 mg PO HS Ipratropium-Albuterol Nebulize [Duoneb 0.5 mg-3 mg/3 ml Soln] 3 ml INHALATION RT-QID Fluticasone/Umeclidin/Vilanter [Trelegy Ellipta 200-62.5-25] 1 puff INHALATION RT-DAILY predniSONE 10 mg PO DAILY Apixaban [Eliquis] 2.5 mg PO BID Pantoprazole Sodium 20 mg PO DAILY Cholecalciferol [Vitamin D3 (25 Mcg = 1000 Iu)] 50 mcg PO DAILY Folic Acid 1 mg PO DAILY tab ALPRAZolam [Xanax] 0.5 mg PO Q12H PRN #2 tab PRN Reason: Anxiety Gabapentin 600 mg PO TID Isosorbide Mononitrate ER [Imdur] 30 mg PO DAILY Ipratropium-Albuterol Nebulize [Duoneb 0.5 mg-3 mg/3 ml Soln] 3 ml INHALATION RT-QID PRN PRN Reason: shortness of breath hydrOXYzine HCL [Atarax] 25 mg PO TID PRN PRN Reason: Anxiety Discharge Medication List Metoprolol Tartrate 25 mg PO BID 07/27/15 [History] Pantoprazole Sodium 20 mg PO DAILY 12/15/21 [History] Atorvastatin Calcium [Lipitor] 80 mg PO HS 06/11/23 [History] Cholecalciferol [Vitamin D3 (25 Mcg = 1000 Iu)] 50 mcg PO DAILY 06/11/23 [History] ALPRAZolam [Xanax] 0.5 mg PO Q12H PRN #2 tab 10/11/23 [Rx] Folic Acid 1 mg PO DAILY tab 10/11/23 [Rx] Gabapentin 600 mg PO TID 11/16/23 [History] Ipratropium-Albuterol Nebulize [Duoneb 0.5 mg-3 mg/3 ml Soln] 3 ml INHALATION RT-QID 11/16/23 [History] Isosorbide Mononitrate ER [Imdur] 30 mg PO DAILY 11/25/23 [History] Fluticasone/Umeclidin/Vilanter [Trelegy Ellipta 200-62.5-25] 1 puff INHALATION RT-DAILY 12/06/23 [History] predniSONE 10 mg PO DAILY 12/06/23 [History] Apixaban [Eliquis] 2.5 mg PO BID 05/08/24 [History] Ipratropium-Albuterol Nebulize [Duoneb 0.5 mg-3 mg/3 ml Soln] 3 ml INHALATION RT-QID PRN 05/08/24 [History] hydrOXYzine HCL [Atarax] 25 mg PO TID PRN 05/08/24 [History] Multivitamins, Thera [Multivitamin (formulary)] 1 each PO DAILY #30 tab 05/13/24 [Rx] Thiamine [Vitamin B-1] 100 mg PO DAILY #30 tablet 05/13/24 [Rx] predniSONE 10 mg PO DAILY #20 tab 05/13/24 [Rx] Follow up Appointment(s)/Referral(s): Ashlyn Toro MD [Primary Care Provider] - 1-2 days Jass Nelson MD [STAFF PHYSICIAN] - 1 Week Discharge/Stand Alone Forms: AA Meetings [place], Community Resources, Outpatient Counseling, In Substance Abuse Facilities Discharge Disposition: HOME SELF-CARE
== END 2024-05-13 15:27 | disposition home or self-care (01) | DRG 189 ==
LOC: EC 16:45 → 2SICU 19:44 → 5NMEDONC 05-10 11:19
PROVIDERS: ADMIT Internal Medicine; ATTEND Internal Medicine
PROC: 5A09457 Assistance with Respiratory Ventilation, 24-96 Consecutive Hours, Continuous Positive Airway Pressure (ICD-10-PCS; principal; 2024-05-08)
DX: J96.21 Acute and chronic respiratory failure with hypoxia (principal); J44.1 Chronic obstructive pulmonary disease with (acute) exacerbation; F10.239 Alcohol dependence with withdrawal, unspecified; I48.20 Chronic atrial fibrillation, unspecified; J98.11 Atelectasis; J96.22 Acute and chronic respiratory failure with hypercapnia; G47.33 Obstructive sleep apnea (adult) (pediatric); I10 Essential (primary) hypertension; E78.5 Hyperlipidemia, unspecified; I25.10 Atherosclerotic heart disease of native coronary artery without angina pectoris; F17.210 Nicotine dependence, cigarettes, uncomplicated; I73.9 Peripheral vascular disease, unspecified; Z95.5 Presence of coronary angioplasty implant and graft; Z86.718 Personal history of other venous thrombosis and embolism; Z79.01 Long term (current) use of anticoagulants; Z79.899 Other long term (current) drug therapy; Z99.81 Dependence on supplemental oxygen; Z79.52 Long term (current) use of systemic steroids
CPT/HCPCS: 36415; 71045; 80048; 80053; 80320; 83735; 83880; 84100; 84145; 84484; 85025; 85610; 85730; 93005; 94640; 94660; 96361; 96365; 96367; 96372; 96375; 99291

== ENCOUNTER 2024-05-30 22:31 | Inpatient (IN) | payer MEDICARE, OTHER ==
[2024-05-30] MEDS ORDERED: chlordiazePOXIDE 25 MG CAP PO PRN (23:08)
[2024-05-30] MEDS ORDERED: LORazepam 2 MG/ML INJ IV PRN (23:08)
[2024-05-30] MEDS: predniSONE 20 MG TAB PO STA (23:16)
[2024-05-30] MEDS: LORazepam 2 MG/ML INJ IV STA (23:16)
--- NOTE | 2024-05-30 23:40 | ED ---
SOB HPI - General Chief Complaint: Shortness of Breath Stated Complaint: AIDE Time Seen by Provider: 05/30/24 22:38 Source: patient, EMS Mode of arrival: EMS - History of Present Illness Initial Comments: This patient is a 63-year-old man who presents to evaluation for dyspnea, an xiety, feeling like he is withdrawing from alcohol. Patient states he has history of COPD and states that he takes prednisone 10 mg daily. Patient notes over the course of past day that his breathing feels more labored. He states he also is having a little more sputum than his usual for him. He has not noted fevers. Patient also states that he has been drinking less than usual. He is feeling very anxious and shaky. MD Complaint: shortness of breath, anxiety Onset/Timin -: days(s) Severity scale (1-10): 0 Consistency: constant Improves With: nothing Worsens With: nothing Known History Of: COPD Associated Symptoms: cough, sputum production Treatments Prior to Arrival: oxygen, bronchodilator - Related Data Home Oxygen Therapy: Yes Home Oxygen Amount: 4 Liters Home Medications Medication Instructions Recorded Confirmed Metoprolol Tartrate 25 mg PO BID 07/27/15 05/31/24 Pantoprazole Sodium 20 mg PO DAILY 12/15/21 05/31/24 Atorvastatin Calcium [Lipitor] 80 mg PO HS 06/11/23 05/31/24 Cholecalciferol [Vitamin D3 (25 50 mcg PO DAILY 06/11/23 05/31/24 Mcg = 1000 Iu)] Gabapentin 600 mg PO TID 11/16/23 05/31/24 Ipratropium-Albuterol Nebulize 3 ml INHALATION RT-QID 11/16/23 05/31/24 [Duoneb 0.5 mg-3 mg/3 ml Soln] Isosorbide Mononitrate ER [Imdur] 30 mg PO DAILY 11/25/23 05/31/24 Fluticasone/Umeclidin/Vilanter 1 puff INHALATION RT-DAILY 12/06/23 05/31/24 [Trelegy Ellipta 200-62.5-25] predniSONE 10 mg PO DAILY 12/06/23 05/31/24 Apixaban [Eliquis] 2.5 mg PO BID 05/08/24 05/31/24 Ipratropium-Albuterol Nebulize 3 ml INHALATION RT-QID PRN 05/08/24 05/31/24 [Duoneb 0.5 mg-3 mg/3 ml Soln] hydrOXYzine HCL [Atarax] 25 mg PO TID PRN 05/08/24 05/31/24 LORazepam [Ativan] 1 mg PO Q4H PRN 05/31/24 05/31/24 MORPHINE ORAL TAYLER CONC 20mg/mL 5 mg PO Q1H PRN 05/31/24 05/31/24 [Roxanol Oral Soln Conc 20MG/ML] Multivitamins, Thera [Multivitamin 1 tab PO DAILY 05/31/24 05/31/24 (formulary)] Previous Rx's Medication Instructions Recorded Folic Acid 1 mg PO DAILY tab 10/11/23 Thiamine [Vitamin B-1] 100 mg PO DAILY #30 tablet 05/13/24 Doxycycline [Vibramycin] 100 mg PO BID 3 Days #6 cap 06/02/24 Nicotine 21Mg/24Hr Patch [Habitrol] 1 patch TRANSDERM DAILY #7 patch 06/02/24 predniSONE 10 mg PO DIRECTED #40 tab 06/02/24 Allergies Allergy/AdvReac Type Severity Reaction Status Date / Time No Known Allergies Allergy Verified 05/30/24 22:38 Review of Systems ROS Statement: Those systems with pertinent positive or pertinent negative responses have been documented in the HPI. ROS Other: All systems not noted in ROS Statement are negative. Constitutional: Denies: fever, chills, weakness Respiratory: Reports: cough, dyspnea, wheezes. Denies: hemoptysis Cardiovascular: Denies: chest pain, palpitations, orthopnea, edema, syncope Gastrointestinal: Reports: nausea. Denies: abdominal pain, vomiting, diarrhea, melena, hematochezia Genitourinary: Denies: dysuria, hematuria Musculoskeletal: Denies: back pain Skin: Denies: rash Neurological: Reports: headache. Denies: weakness, numbness, confusion Psychiatric: Reports: anxiety. Denies: depression, suicidal thoughts Past Medical History Past Medical History: Atrial Fibrillation, Coronary Artery Disease (CAD), COPD, Deep Vein Thrombosis (DVT), GERD/Reflux, GI Bleed, Hyperlipidemia, Hypertension, Osteoarthritis (OA), Pneumonia, Sleep Apnea/CPAP/BIPAP Additional Past Medical History / Comment(s): DVT- LEFT LEG, CPAP, pt uses 3 liters 02 when active and at night with cpap. pt has portable 02 History of Any Multi-Drug Resistant Organisms: MRSA Date of last positivie culture/infection: 03/01/22 MRSA MDRO Source:: Right Axilla Past Surgical History: Heart Catheterization With Stent, Orthopedic Surgery Additional Past Surgical History / Comment(s): ABD AORTOGRAM. Other SX: (construction accident balcony fell from building)HAD CRUSHING INJURY TO ANKLES HAD FUSION DONE JOSE ALBERTO, LT FOOT TOE PARTIAL AMP. CHEST TUBE FOR PNEUMOTHORAX. SURGERY TO REMOVE BLOOD CLOT FROM LEG. Bronchial washings/lavage, EGD. femoral bypass,heart stents x3 Past Anesthesia/Blood Transfusion Reactions: No Reported Reaction Additional Past Anesthesia/Blood Transfusion Reaction / Comment(s): Pt states he has never received blood. Date of Last Stent Placement:: 04/2021 Past Psychological History: No Psychological Hx Reported Smoking Status: Current every day smoker Past Alcohol Use History: Abuse Past Drug Use History: Marijuana - Past Family History Father Family Medical History: Coronary Artery Disease (CAD), Diabetes Mellitus, Myocardial Infarction (RI), Pulmonary Embolus Additional Family Medical History / Comment(s): PE Brother(s) Family Medical History: Diabetes Mellitus, Myocardial Infarction (RI) Mother Family Medical History: CVA/TIA General Exam General appearance: anxious, in distress Head exam: Present: atraumatic, normocephalic Eye exam: Present: normal appearance. Absent: scleral icterus, conjunctival injection ENT exam: Present: mucous membranes dry Neck exam: Present: normal inspection, full ROM Respiratory exam: Present: respiratory distress, wheezes, accessory muscle use, decreased breath sounds. Absent: rales, rhonchi, stridor Cardiovascular Exam: Present: normal rhythm, tachycardia, normal heart sounds. Absent: systolic murmur, diastolic murmur, rubs, gallop GI/Abdominal exam: Present: soft. Absent: distended, tenderness, guarding, rebound, rigid, mass Extremities exam: Present: normal inspection, normal capillary refill. Absent: pedal edema, calf tenderness Back exam: Present: normal inspection. Absent: CVA tenderness (R), CVA tenderness (L) Neurological exam: Present: alert Psychiatric exam: Present: anxious. Absent: depressed, suicidal ideation Skin exam: Present: warm, dry, intact, normal color. Absent: rash Course Vital Signs 05/30/24 05/30/24 05/31/24 22:32 23:53 00:16 Temperature 98.1 F Pulse Rate 113 H 110 H 111 H Respiratory 22 18 20 Rate Blood Pressure 154/94 134/80 O2 Sat by Pulse 98 97 Oximetry Fraction of Inspired Oxygen (FIO2) 05/31/24 05/31/24 05/31/24 00:23 02:00 02:35 Temperature Pulse Rate 110 H 104 H Respiratory 20 18 Rate Blood Pressure 103/75 O2 Sat by Pulse 100 Oximetry Fraction of 30 Inspired Oxygen (FIO2) 05/31/24 05/31/24 05/31/24 04:00 04:46 07:36 Temperature Pulse Rate 108 H 103 H Respiratory 15 16 Rate Blood Pressure 99/79 O2 Sat by Pulse 97 Oximetry Fraction of 30 30 Inspired Oxygen (FIO2) 05/31/24 05/31/24 05/31/24 07:47 08:14 09:05 Temperature Pulse Rate 106 H 101 H 92 Respiratory 16 18 16 Rate Blood Pressure 122/80 106/81 O2 Sat by Pulse 97 95 Oximetry Fraction of Inspired Oxygen (FIO2) 05/31/24 05/31/24 05/31/24 10:23 11:02 11:12 Temperature Pulse Rate 79 75 76 Respiratory 14 Rate Blood Pressure 107/78 O2 Sat by Pulse 97 Oximetry Fraction of Inspired Oxygen (FIO2) 05/31/24 05/31/24 05/31/24 11:28 12:16 14:51 Temperature Pulse Rate 87 87 81 Respiratory 18 18 18 Rate Blood Pressure 102/76 132/90 125/91 O2 Sat by Pulse 100 100 Oximetry Fraction of Inspired Oxygen (FIO2) 05/31/24 05/31/24 05/31/24 15:20 15:23 15:32 Temperature Pulse Rate 89 71 72 Respiratory 18 Rate Blood Pressure 131/89 O2 Sat by Pulse 98 Oximetry Fraction of Inspired Oxygen (FIO2) 05/31/24 16:16 Temperature Pulse Rate 90 Respiratory 20 Rate Blood Pressure 118/84 O2 Sat by Pulse 97 Oximetry Fraction of Inspired Oxygen (FIO2) Medical Decision Making - Medical Decision Making Patient is 63-year-old man here with a constellation of symptoms. He does appear to be having COPD exacerbation with coincident alcohol withdrawal. The patient is started on CIWA protocol. Labs do reveal moderately elevated pCO2 and patient is placed on BiPAP. Patient admitted out will have pulmonology consultation. Was pt. sent in by a medical professional or institution (DASHAWN Farrell, [employer], urgent care, hospital, or jail...) When possible be specific @ -[No] Did you speak to anyone other than the patient for history (EMS, parent, family, police, friend...)? What history was obtained from this source @ -[No] Did you review nursing and triage notes (agree or disagree)? Why? @ -[I reviewed and agree with nursing and triage notes] Were old charts reviewed (outside hosp., previous admission, EMS record, old E KG, old radiological studies, urgent care reports/EKG's, jail records)? Report findings @ -[No old charts were reviewed] Differential Diagnosis (chest pain, altered mental status, abdominal pain women, abdominal pain men, vaginal bleeding, weakness, fever, dyspnea, syncope, headache, dizziness, GI bleed, back pain, seizure, CVA, palpatations, mental health, musculoskeletal)? @ -[Differential Dyspnea: Coronary syndrome, arrhythmia, tamponade, asthma, COPD, pulmonary embolism, pneumonia, pneumothorax, pulmonary effusion, anaphylaxis, diabetic ketoacidosis, flailed chest, pulmonary contusion, diaphragmatic rupture, anemia, neuromuscular, this is not meant to be an all-inclusive list. EKG interpreted by me (3pts min.). @ -[As above] X-rays interpreted by me (1pt min.). @ -[I interpreted as above CT interpreted by me (1pt min.). @ -[None done] U/S interpreted by me (1pt. min.). @ -[None done] What testing was considered but not performed or refused? (CT, X-rays, U/S, labs)? Why? @ -[None] What meds were considered but not given or refused? Why? @ -[None] Did you discuss the management of the patient with other professionals (professionals i.e. DASHAWN Farrell, [employer], lab, RT, psych nurse, social human services assistants, monument setter, teacher, real estate loan officer, family preservation caseworker)? Give summary @ -[Case discussed with admitting physician and treatment recommendations incorporated Was smoking cessation discussed for >3mins.? @ -[No] Was critical care preformed (if so, how long)? @ -[Yes, 35 minutes Were there social determinants of health that impacted care today? How? (Homelessness, low income, unemployed, alcoholism, drug addiction, transportation, low edu. Level, literacy, decrease access to med. care, long-term, rehab)? @ -[Alcoholism Was there de-escalation of care discussed even if they declined (Discuss DNR or withdrawal of care, Hospice)? DNR status @ -[No] What co-morbidities impacted this encounter? (DM, HTN, Smoking, COPD, CAD, Cancer, CVA, ARF, Chemo, Hep., AIDS, mental health diagnosis, sleep apnea, morbid obesity)? @ -[COPD Was patient admitted / discharged? Hospital course, mention meds given and route, prescriptions, significant lab abnormalities, going to OR and other pert inent info. @ -[As above Undiagnosed new problem with uncertain prognosis? @ -[No] Drug Therapy requiring intensive monitoring for toxicity (Heparin, Nitro, Insulin, Cardizem)? @ -[No] Were any procedures done? @ -[No] Diagnosis/symptom? @ -[Acute alcohol withdrawal Acute exacerbation of COPD Hypercarbic respiratory failure Acute, or Chronic, or Acute on Chronic? @ -[default] Uncomplicated (without systemic symptoms) or Complicated (systemic symptoms)? @ -[Complicated by dyspnea Side effects of treatment? @ -[No] Exacerbation, Progression, or Severe Exacerbation? @ -[No] Poses a threat to life or bodily function? How? (Chest pain, [place], RI, pneumonia, PE, COPD, DKA, ARF, appy, cholecystitis, CVA, Diverticulitis, Homicidal, Suicidal, threat to staff... and all critical care pts) @ -[Yes there is significant risk given the patient's COPD and alcohol withdrawal All treatments are based on ideal body weight as in ED triage - Lab Data Result diagrams: 06/02/24 03:43 06/02/24 03:43 Lab Results 05/30/24 05/30/24 05/30/24 Range/Units 23:12 23:12 23:12 WBC 10.1 (3.8-10.6) k/uL RBC 4.86 (4.30-5.90) m/uL Hgb 14.2 (13.0-17.5) gm/dL Hct 44.7 (39.0-53.0) % MCV 92.0 (80.0-100.0) fL MCH 29.1 (25.0-35.0) pg MCHC 31.7 (31.0-37.0) g/dL RDW 15.9 H (11.5-15.5) % Plt Count 260 (150-450) k/uL MPV 7.7 Neutrophils % 73 % Lymphocytes % 15 % Monocytes % 9 % Eosinophils % 1 % Basophils % 1 % Neutrophils # 7.4 (1.3-7.7) k/uL Lymphocytes # 1.5 (1.0-4.8) k/uL Monocytes # 0.9 (0-1.0) k/uL Eosinophils # 0.1 (0-0.7) k/uL Basophils # 0.1 (0-0.2) k/uL PT 9.6 L (10.0-12.5) sec INR 0.8 (<1.2) APTT 22.1 (22.0-30.0) sec D-Dimer 0.31 (<0.60) mg/L FEU VBG pH (7.31-7.41) VBG pCO2 (37-51) mmHg VBG HCO3 (24-28) mmol/L Sodium 117 L* (137-145) mmol/L Potassium 5.1 (3.5-5.1) mmol/L Chloride 75 L (98-107) mmol/L Carbon Dioxide 36 H (22-30) mmol/L Anion Gap 6 mmol/L BUN <2 L (9-20) mg/dL Creatinine 0.41 L (0.66-1.25) mg/dL Est GFR (CKD-EPI)AfAm >90 (>60 ml/min/1.73 sqM) Est GFR (CKD-EPI)NonAf >90 (>60 ml/min/1.73 sqM) Glucose 101 H (74-99) mg/dL Lactic Ac Sepsis Rflx Plasma Lactic Acid Ned (0.7-2.0) mmol/L Calcium 8.9 (8.4-10.2) mg/dL Total Bilirubin 1.3 (0.2-1.3) mg/dL AST 68 H (17-59) U/L ALT 40 (4-49) U/L Alkaline Phosphatase 114 (38-126) U/L Troponin I (0.000-0.034) ng/mL NT-Pro-B Natriuret Pep 148 pg/mL Total Protein 7.6 (6.3-8.2) g/dL Albumin 4.7 (3.5-5.0) g/dL Serum Alcohol 76 mg/dL 05/30/24 05/30/24 05/30/24 Range/Units 23:12 23:12 23:29 WBC (3.8-10.6) k/uL RBC (4.30-5.90) m/uL Hgb (13.0-17.5) gm/dL Hct (39.0-53.0) % MCV (80.0-100.0) fL MCH (25.0-35.0) pg MCHC (31.0-37.0) g/dL RDW (11.5-15.5) % Plt Count (150-450) k/uL MPV Neutrophils % % Lymphocytes % % Monocytes % % Eosinophils % % Basophils % % Neutrophils # (1.3-7.7) k/uL Lymphocytes # (1.0-4.8) k/uL Monocytes # (0-1.0) k/uL Eosinophils # (0-0.7) k/uL Basophils # (0-0.2) k/uL PT (10.0-12.5) sec INR (<1.2) APTT (22.0-30.0) sec D-Dimer (<0.60) mg/L FEU VBG pH 7.30 L (7.31-7.41) VBG pCO2 76 H* (37-51) mmHg VBG HCO3 38 H (24-28) mmol/L Sodium (137-145) mmol/L Potassium (3.5-5.1) mmol/L Chloride (98-107) mmol/L Carbon Dioxide (22-30) mmol/L Anion Gap mmol/L BUN (9-20) mg/dL Creatinine (0.66-1.25) mg/dL Est GFR (CKD-EPI)AfAm (>60 ml/min/1.73 sqM) Est GFR (CKD-EPI)NonAf (>60 ml/min/1.73 sqM) Glucose (74-99) mg/dL Lactic Ac Sepsis Rflx Plasma Lactic Acid Ned 2.2 H* (0.7-2.0) mmol/L Calcium (8.4-10.2) mg/dL Total Bilirubin (0.2-1.3) mg/dL AST (17-59) U/L ALT (4-49) U/L Alkaline Phosphatase (38-126) U/L Troponin I 0.019 (0.000-0.034) ng/mL NT-Pro-B Natriuret Pep pg/mL Total Protein (6.3-8.2) g/dL Albumin (3.5-5.0) g/dL Serum Alcohol mg/dL 05/31/24 Range/Units 00:55 WBC (3.8-10.6) k/uL RBC (4.30-5.90) m/uL Hgb (13.0-17.5) gm/dL Hct (39.0-53.0) % MCV (80.0-100.0) fL MCH (25.0-35.0) pg MCHC (31.0-37.0) g/dL RDW (11.5-15.5) % Plt Count (150-450) k/uL MPV Neutrophils % % Lymphocytes % % Monocytes % % Eosinophils % % Basophils % % Neutrophils # (1.3-7.7) k/uL Lymphocytes # (1.0-4.8) k/uL Monocytes # (0-1.0) k/uL Eosinophils # (0-0.7) k/uL Basophils # (0-0.2) k/uL PT (10.0-12.5) sec INR (<1.2) APTT (22.0-30.0) sec D-Dimer (<0.60) mg/L FEU VBG pH (7.31-7.41) VBG pCO2 (37-51) mmHg VBG HCO3 (24-28) mmol/L Sodium (137-145) mmol/L Potassium (3.5-5.1) mmol/L Chloride (98-107) mmol/L Carbon Dioxide (22-30) mmol/L Anion Gap mmol/L BUN (9-20) mg/dL Creatinine (0.66-1.25) mg/dL Est GFR (CKD-EPI)AfAm (>60 ml/min/1.73 sqM) Est GFR (CKD-EPI)NonAf (>60 ml/min/1.73 sqM) Glucose (74-99) mg/dL Lactic Ac Sepsis Rflx Y Plasma Lactic Acid Ned (0.7-2.0) mmol/L Calcium (8.4-10.2) mg/dL Total Bilirubin (0.2-1.3) mg/dL AST (17-59) U/L ALT (4-49) U/L Alkaline Phosphatase (38-126) U/L Troponin I (0.000-0.034) ng/mL NT-Pro-B Natriuret Pep pg/mL Total Protein (6.3-8.2) g/dL Albumin (3.5-5.0) g/dL Serum Alcohol mg/dL - EKG Data -: EKG Interpreted by Me EKG shows normal: sinus rhythm (With occasional premature supraventricular complexes.), axis (Normal), intervals (Normal), QRS complexes (Normal), ST-T waves (Normal) Rate: tachycardia (Rate approximately 110 bpm) Disposition Clinical Impression: Alcohol withdrawal, COPD with exacerbation, Hyponatremia Disposition: ADMITTED IP TO THIS HOSP Condition: Fair Is patient prescribed a controlled substance at d/c from ED?: No
[2024-05-30 23:41] LABS: Basophils # (A) 0.1 k/uL (0-0.2); Basophils % (A) 1 %; Eosinophils # (A) 0.1 k/uL (0-0.7); Eosinophils % (A) 1 %; HCT 44.7 % (39.0-53.0); HGB 14.2 gm/dL (13.0-17.5); Lymphocytes # (A) 1.5 k/uL (1.0-4.8); Lymphocytes % (A) 15 %; MCH 29.1 pg (25.0-35.0); MCHC 31.7 g/dL (31.0-37.0); Mean Platelet Volume 7.7; Monocytes # (A) 0.9 k/uL (0-1.0); Monocytes % (A) 9 %; Neutrophils # (A) 7.4 k/uL (1.3-7.7); Neutrophils % (A) 73 %; Platelet Count 260 k/uL (150-450); RBC 4.86 m/uL (4.30-5.90); RDW 15.9 % (11.5-15.5); WBC 10.1 k/uL (3.8-10.6)
[2024-05-30 23:48] LABS: VBG PH 7.3 (7.31-7.41)
[2024-05-30 23:56] LABS: INR 0.8 (<1.2); Partial Thromboplastin Time 22.1 sec (22.0-30.0); Prothrombin Time 9.6 sec (10.0-12.5)
[2024-05-31 00:01] LABS: ALT 40 U/L (4-49); AST 68 U/L (17-59); African American GFR (CKD) >90 (>60 ml/min/1.73 sqM); Albumin 4.7 g/dL (3.5-5.0); Alcohol 76 mg/dL; Alkaline Phosphatase 114 U/L (38-126); Anion Gap 6 mmol/L; Blood Urea Nitrogen <2 mg/dL (9-20); Calcium 8.9 mg/dL (8.4-10.2); Carbon Dioxide 36 mmol/L (22-30); Chloride 75 mmol/L (98-107); Glucose 101 mg/dL (74-99); Non-African American GFR(CKD) >90 (>60 ml/min/1.73 sqM); Total Bilirubin 1.3 mg/dL (0.2-1.3); Total Protein 7.6 g/dL (6.3-8.2)
[2024-05-31 00:07] LABS: Potassium 5.1 mmol/L (3.5-5.1); Sodium 117 mmol/L (137-145)
[2024-05-31 00:09] LABS: NT-Pro-B-Type Natriuretic Pept 148 pg/mL
[2024-05-31] MEDS: IPRATROPIUM-ALBUTEROL 3 ML NEB INHALATION STA (00:16)
[2024-05-31] MEDS: SODIUM CHLORIDE 0.9% 1,000 ML IV STA (00:39)
[2024-05-31] MEDS: SODIUM CHLORIDE 0.9% 1,000 ML IV ONE (00:39)
--- NOTE | 2024-05-31 00:50 | XR ---
EXAM: XR Chest, 1 View CLINICAL HISTORY: ITS.REASON XR Reason: dyspnea TECHNIQUE: Frontal view of the chest. COMPARISON: No relevant prior studies available. FINDINGS: Lungs: Bilateral apical pleural scarring. No consolidation. Pleural space: Unremarkable. No pneumothorax. Heart: Unremarkable. No cardiomegaly. Mediastinum: Unremarkable. Normal mediastinal contour. Bones/joints: Unremarkable. No acute fracture. IMPRESSION: No acute findings in the chest.
[2024-05-31] MEDS ORDERED: IPRATROPIUM-ALBUTEROL 3 ML NEB INHALATION PRN (02:10)
[2024-05-31] MEDS ORDERED: NALOXONE 0.4 MG/ML 1 ML VIAL IVP PRN (02:10)
[2024-05-31] MEDS: LORazepam 2 MG/ML INJ IV PRN ×2 (03:10→06:40)
[2024-05-31] MEDS: methylPREDNISolone SOD SUCCI 125 MG/2 ML VIAL IV SCH (06:40)
[2024-05-31] MEDS: SYMBICORT 160-4.5 MCG INHALER INHALATION SCH (07:35)
[2024-05-31] MEDS: IPRATROPIUM-ALBUTEROL 3 ML NEB INHALATION SCH (07:35)
[2024-05-31] MEDS ORDERED: NON FORMULARY DRUG (Fluticasone/Umeclidin/Vilanter [Trelegy Ellipta 200-62.5-25] 1 EACH Bl INHALATION SCH (08:00)
[2024-05-31] MEDS: CHOLECALCIFEROL 25 MCG (1000 IU) TABLET PO SCH (08:16)
[2024-05-31 08:17] LABS: VBG PH 7.33 (7.31-7.41)
[2024-05-31] MEDS: ISOSORBIDE MONONITRATE ER 30 MG TAB.ER.24H PO SCH (08:17)
[2024-05-31] MEDS: METOPROLOL TARTRATE 25 MG TAB PO SCH (08:17)
[2024-05-31] MEDS: APIXABAN 2.5 MG TABLET PO SCH (08:17)
[2024-05-31] MEDS: GABAPENTIN 300 MG CAP PO SCH (08:17)
[2024-05-31] MEDS: FOLIC ACID 1 MG TAB PO SCH (08:18)
[2024-05-31] MEDS: PANTOPRAZOLE 40 MG TABLET PO SCH (08:18)
[2024-05-31] MEDS ORDERED: hydrOXYzine HCL 25 MG TAB PO PRN (09:00)
[2024-05-31] MEDS: DOXYCYCLINE 100 MG CAP PO SCH (09:06)
--- NOTE | 2024-05-31 09:32 | XR ---
EXAMINATION TYPE: XR chest 1V DATE OF EXAM: 05/31/2024 9:27 AM COMPARISON: Chest radiographs from 05/30/2024 CLINICAL INDICATION: Male, 63 years old with history of hypoxia; TECHNIQUE: XR chest 1V Frontal view of the chest. FINDINGS: Lungs/Pleura: Prominent interstitial lung markings are seen scattered throughout the lungs with radha ening of the diaphragm and increased lucency of the lung apices. No evidence of focal consolidation, pneumothorax or pleural effusion. Pulmonary vascularity: Unremarkable. Heart/mediastinum: Cardiomediastinal silhouette is unremarkable. Musculoskeletal: No acute osseous pathology. IMPRESSION: Similar exam with increased interstitial lung markings and COPD. [facility], , 05/31/2024 9:30 AM
[2024-05-31] MEDS: THIAMINE 100 MG TAB PO SCH (11:27)
--- NOTE | 2024-05-31 13:20 | P.CNPUL ---
History of Present Illness Consult date: 05/31/24 Requesting physician: Ollie E Keli Reason for consult: dyspnea, COPD, hypoxemia Chief complaint: Shortness of breath, cough, congestion History of present illness: This is a 63-year-old male patient with a known history of severe oxygen dependent chronic obstructive pulmonary disease, chronic and ongoing tobacco dependence, chronic daily alcohol use, sleep apnea utilizing CPAP, coronary chu ry disease with previous stent placement, peripheral vascular disease with previous bypass, atrial fibrillation anticoagulated with Eliquis, hypertension, hyperlipidemia, marijuana use. He was recently discharged from here on May 13, 2024 following acute exacerbation of COPD. He came into the emergency room yesterday with worsening shortness of breath, anxiety, feeling like alcohol withdrawal symptoms. His EtOH level was 76. Chest x-ray revealed no acute findings. White count 10.1. Hemoglobin 14.2. Platelets 260. Sodium 117. Potassium 5.1. Bicarb 36. BUN less than 2. Creatinine 0.41. Glucose 101. AST 68. ALT 40. Troponin negative x 1. proBNP 148. He is seen today in [facility] in the emergency department. He is currently sitting up on a stretcher. On BiPAP 12/5 and 30% FiO2. He lung sounds remain quite diminished with bilateral wheezing. He is feeling a bit better today compared to yesterday. He is afebrile. Hemodynamically stable. Review of Systems REVIEW OF SYSTEMS: CONSTITUTIONAL: Denies any recent significant weight loss or weight gain. EYES: Denies change in vision. EARS, NOSE, MOUTH, THROAT: Denies headaches, denies sore throat. CARDIOVASCULAR: Denies chest pain, palpitations or syncopal episodes. RESPIRATORY: Positive for shortness of breath, cough, congestion no hemoptysis. GASTROINTESTINAL: Denies change in appetite, denies abdominal pain GENITOURINARY: Denies hematuria, denies infections. MUSKULOSKELETAL: Denies pain, denies swelling. INTEGUMENTARY: Denies rash, denies eczema. NEUROLOGICAL: Denies recent memory loss, no recent seizure activity. PSYCHIATRIC: Positive for anxiety. HEMATOLOGIC/LYMPHATIC: Denies anemia, denies enlarged lymph nodes. Past Medical History Past Medical History: Atrial Fibrillation, Coronary Artery Disease (CAD), COPD, Deep Vein Thrombosis (DVT), GERD/Reflux, GI Bleed, Hyperlipidemia, Hypertension, Osteoarthritis (OA), Pneumonia, Sleep Apnea/CPAP/BIPAP Additional Past Medical History / Comment(s): DVT- LEFT LEG, CPAP, pt uses 3 liters 02 when active and at night with cpap. pt has portable 02 History of Any Multi-Drug Resistant Organisms: MRSA Date of last positivie culture/infection: 03/01/22 MRSA MDRO Source:: Right Axilla Past Surgical History: Heart Catheterization With Stent, Orthopedic Surgery Additional Past Surgical History / Comment(s): ABD AORTOGRAM. Other SX: (construction accident balcony fell from building)HAD CRUSHING INJURY TO ANKLES HAD FUSION DONE JOSE ALBERTO, LT FOOT TOE PARTIAL AMP. CHEST TUBE FOR PNEUMOTHORAX. SURGERY TO REMOVE BLOOD CLOT FROM LEG. Bronchial washings/lavage, EGD. femoral bypass,heart stents x3 Past Anesthesia/Blood Transfusion Reactions: No Reported Reaction Additional Past Anesthesia/Blood Transfusion Reaction / Comment(s): Pt states he has never received blood. Date of Last Stent Placement:: 04/2021 Past Psychological History: No Psychological Hx Reported Smoking Status: Current every day smoker Past Alcohol Use History: Abuse Past Drug Use History: Marijuana - Past Family History Father Family Medical History: Coronary Artery Disease (CAD), Diabetes Mellitus, Myocardial Infarction ([place]), Pulmonary Embolus Additional Family Medical History / Comment(s): PE Brother(s) Family Medical History: Diabetes Mellitus, Myocardial Infarction ([place]) Mother Family Medical History: CVA/TIA Medications and Allergies Home Medications Medication Instructions Recorded Confirmed Type Metoprolol Tartrate 25 mg PO BID 07/27/15 05/31/24 History Pantoprazole Sodium 20 mg PO DAILY 12/15/21 05/31/24 History Atorvastatin Calcium [Lipitor] 80 mg PO HS 06/11/23 05/31/24 History Cholecalciferol [Vitamin D3 (25 50 mcg PO DAILY 06/11/23 05/31/24 History Mcg = 1000 Iu)] Folic Acid 1 mg PO DAILY tab 10/11/23 05/31/24 Rx Gabapentin 600 mg PO TID 11/16/23 05/31/24 History Ipratropium-Albuterol Nebulize 3 ml INHALATION RT-QID 11/16/23 05/31/24 History [Duoneb 0.5 mg-3 mg/3 ml Soln] Isosorbide Mononitrate ER [Imdur] 30 mg PO DAILY 11/25/23 05/31/24 History Fluticasone/Umeclidin/Vilanter 1 puff INHALATION RT-DAILY 12/06/23 05/31/24 History [Trelegy Ellipta 200-62.5-25] predniSONE 10 mg PO DAILY 12/06/23 05/31/24 History Apixaban [Eliquis] 2.5 mg PO BID 05/08/24 05/31/24 History Ipratropium-Albuterol Nebulize 3 ml INHALATION RT-QID PRN 05/08/24 05/31/24 History [Duoneb 0.5 mg-3 mg/3 ml Soln] hydrOXYzine HCL [Atarax] 25 mg PO TID PRN 05/08/24 05/31/24 History Thiamine [Vitamin B-1] 100 mg PO DAILY #30 tablet 05/13/24 05/31/24 Rx LORazepam [Ativan] 1 mg PO Q4H PRN 05/31/24 05/31/24 History MORPHINE ORAL TAYLER CONC 20mg/mL 5 mg PO Q1H PRN 05/31/24 05/31/24 History [Roxanol Oral Soln Conc 20MG/ML] Multivitamins, Thera [Multivitamin 1 tab PO DAILY 05/31/24 05/31/24 History (formulary)] Allergies Allergy/AdvReac Type Severity Reaction Status Date / Time No Known Allergies Allergy Verified 05/30/24 22:38 Physical Exam Vitals: Vital Signs Temp Pulse Resp BP Pulse Ox FiO2 05/31/24 12:16 87 18 132/90 100 05/31/24 11:28 87 18 102/76 100 05/31/24 11:12 76 05/31/24 11:02 75 05/31/24 10:23 79 14 107/78 97 05/31/24 09:05 92 16 106/81 95 05/31/24 08:14 101 H 18 122/80 97 05/31/24 07:47 106 H 16 05/31/24 07:36 103 H 16 30 05/31/24 04:46 30 05/31/24 04:00 108 H 15 99/79 97 05/31/24 02:35 30 05/31/24 02:00 104 H 18 103/75 100 05/31/24 00:23 110 H 20 05/31/24 00:16 111 H 20 05/30/24 23:53 110 H 18 134/80 97 05/30/24 22:32 98.1 F 113 H 22 154/94 98 Intake and Output 05/30/24 05/31/24 05/31/24 22:59 06:59 14:59 Output Total 400 Balance -400 Output: Urine 400 Other: Weight 63.503 kg GENERAL EXAM: Alert, thin, disheveled 63-year-old male, on BiPAP 12/5 and 30% FiO2. HEAD: Normocephalic. EYES: Normal reaction of pupils, equal size. NOSE: Clear with pink turbinates. THROAT: No erythema or exudates. NECK: No masses, no JVD. CHEST: No chest wall deformity. LUNGS: Equal air entry with bilateral wheezing, diminished. CVS: S1 and S2 normal with no audible murmur, regular rhythm. ABDOMEN: No hepatosplenomegaly, normal bowel sounds, no guarding or rigidity. SPINE: No scoliosis or deformity SKIN: No rashes CENTRAL NERVOUS SYSTEM: No focal deficits, tone is normal in all 4 extremities. EXTREMITIES: There is no peripheral edema. No clubbing, no cyanosis. Peripheral pulses are intact. Results - Laboratory Findings CBC and BMP: 05/30/24 23:12 05/30/24 23:12 PT/INR, D-dimer PT 9.6 sec (10.0-12.5) L 05/30/24 23:12 INR 0.8 (<1.2) 05/30/24 23:12 D-Dimer 0.31 mg/L FEU (<0.60) 05/30/24 23:12 Abnormal lab findings: Abnormal Labs 05/30/24 05/30/24 05/30/24 23:12 23:12 23:12 RDW 15.9 H PT 9.6 L VBG pH VBG pCO2 VBG HCO3 Sodium 117 L* Chloride 75 L Carbon Dioxide 36 H BUN <2 L Creatinine 0.41 L Glucose 101 H Plasma Lactic Acid Ned AST 68 H 05/30/24 05/30/24 05/31/24 23:12 23:29 06:52 RDW PT VBG pH 7.30 L VBG pCO2 76 H* 74 H* VBG HCO3 38 H 39 H Sodium Chloride Carbon Dioxide BUN Creatinine Glucose Plasma Lactic Acid Ned 2.2 H* AST - Diagnostic Findings Chest x-ray: image reviewed Assessment and Plan Assessment: Acute on chronic hypoxemic respiratory failure secondary to an acute exacerbation of chronic obstructive pulmonary disease. Acute alcohol intoxication Acute anxiety secondary to above Oxygen dependent COPD Obstructive sleep apnea utilizing CPAP Chronic and ongoing tobacco dependence Daily alcohol use, patient is on CIWA protocol Coronary artery disease with previous stent placements Peripheral vascular disease with femoral bypass History of atrial fibrillation anticoagulated with Eliquis Hypertension Hyperlipidemia Marijuana use Plan: The patient was seen and evaluated Chest x-ray, labs and medications reviewed Currently on BiPAP Transition to nasal cannula as tolerated Initiated on DuoNeb inhalations, Symbicort Initiated on Solu-Medrol Empiric antibiotics in the form of doxycycline Anticoagulated with Eliquis Educated regarding smoking cessation Educated regarding alcohol cessation NicoDerm patch will be offered We will continue to follow and make further recommendations based on his clinical status I have personally seen and examined the patient, performed the documentation and the assessment and plan as written. Number of minutes spent on the visit: 20 Dictation was produced using [employer] dictation software. Please excuse any grammatical, word or spelling errors.
[2024-05-31 15:16] LABS: ALT 29 U/L (4-49); AST 38 U/L (17-59); African American GFR (CKD) >90 (>60 ml/min/1.73 sqM); Albumin 3.7 g/dL (3.5-5.0); Albumin/Globulin Ratio 1.5; Alkaline Phosphatase 110 U/L (38-126); Anion Gap -1 mmol/L; Blood Urea Nitrogen 6 mg/dL (9-20); Carbon Dioxide 39 mmol/L (22-30); Chloride 85 mmol/L (98-107); Globulin 2.5 g/dL; Glucose 155 mg/dL (74-99); Non-African American GFR(CKD) >90 (>60 ml/min/1.73 sqM); Sodium 123 mmol/L (137-145); Total Protein 6.2 g/dL (6.3-8.2)
[2024-05-31] MEDS: ACETAMINOPHEN TAB 325 MG TAB PO PRN (16:25)
--- NOTE | 2024-05-31 16:34 | P.HPIM ---
History of Present Illness H&P Date: 05/31/24 Chief Complaint: Shortness of breath 63-year-old man who presents to evaluation for dyspnea, anxiety, feeling like he is withdrawing from alcohol. Patient states he has history of COPD and states that he takes prednisone 10 mg daily. Patient notes over the course of past day that his breathing feels more labored. He states he also is having a little more sputum than his usual for him. He has not noted fevers. Patient also states that he has been drinking less than usual. He is feeling very anxious and shaky. He came into the emergency room yesterday with worsening shortness of breath, anxiety, feeling like alcohol withdrawal symptoms. --His EtOH level was 76. Chest x-ray revealed no acute findings. White count 10.1. Hemoglobin 14.2. Platelets 260. Sodium 117. Potassium 5.1. Bicarb 36. BUN less than 2. Creatinine 0.41. Glucose 101. AST 68. ALT 40. Troponin negative x 1. proBNP 148. He is seen today in consultation in the emergency department. He is currently sitting up on a stretcher. On BiPAP 12/5 and 30% FiO2. Review of Systems REVIEW OF SYSTEMS: CONSTITUTIONAL: No fever, no malaise, no fatigue. HEENT: No recent visual problems or hearing problems. Denied any sore throat. CARDIOVASCULAR: No chest pain, orthopnea, PND, no palpitations, no syncope. PULMONARY: No shortness of breath, no cough, no hemoptysis. GASTROINTESTINAL: No diarrhea, no nausea, no vomiting, no abdominal pain. NEUROLOGICAL: No headaches, no weakness, no numbness. HEMATOLOGICAL: Denies any bleeding or petechiae. GENITOURINARY: Denies any burning micturition, frequency, or urgency. MUSCULOSKELETAL/RHEUMATOLOGICAL: Denies any joint pain, swelling, or any muscle pain. ENDOCRINE: Denies any polyuria or polydipsia. The rest of the 14-point review of systems is negative. Past Medical History Past Medical History: Atrial Fibrillation, Coronary Artery Disease (CAD), COPD, Deep Vein Thrombosis (DVT), GERD/Reflux, GI Bleed, Hyperlipidemia, Hypertension, Osteoarthritis (OA), Pneumonia, Sleep Apnea/CPAP/BIPAP Additional Past Medical History / Comment(s): DVT- LEFT LEG, CPAP, pt uses 3 liters 02 when active and at night with cpap. pt has portable 02 History of Any Multi-Drug Resistant Organisms: MRSA Date of last positivie culture/infection: 03/01/22 MRSA MDRO Source:: Right Axilla Past Surgical History: Heart Catheterization With Stent, Orthopedic Surgery Additional Past Surgical History / Comment(s): ABD AORTOGRAM. Other SX: (construction accident balcony fell from building)HAD CRUSHING INJURY TO ANKLES HAD FUSION DONE JOSE ALBERTO, LT FOOT TOE PARTIAL AMP. CHEST TUBE FOR PNEUMOTHORAX. SURGERY TO REMOVE BLOOD CLOT FROM LEG. Bronchial washings/lavage, EGD. femoral bypass,heart stents x3 Past Anesthesia/Blood Transfusion Reactions: No Reported Reaction Additional Past Anesthesia/Blood Transfusion Reaction / Comment(s): Pt states he has never received blood. Date of Last Stent Placement:: 04/2021 Past Psychological History: No Psychological Hx Reported Smoking Status: Current every day smoker Past Alcohol Use History: Abuse Past Drug Use History: Marijuana - Past Family History Father Family Medical History: Coronary Artery Disease (CAD), Diabetes Mellitus, Myocardial Infarction ([place]), Pulmonary Embolus Additional Family Medical History / Comment(s): PE Brother(s) Family Medical History: Diabetes Mellitus, Myocardial Infarction ([place]) Mother Family Medical History: CVA/TIA Medications and Allergies Home Medications Medication Instructions Recorded Confirmed Type Metoprolol Tartrate 25 mg PO BID 07/27/15 05/31/24 History Pantoprazole Sodium 20 mg PO DAILY 12/15/21 05/31/24 History Atorvastatin Calcium [Lipitor] 80 mg PO HS 06/11/23 05/31/24 History Cholecalciferol [Vitamin D3 (25 50 mcg PO DAILY 06/11/23 05/31/24 History Mcg = 1000 Iu)] Folic Acid 1 mg PO DAILY tab 10/11/23 05/31/24 Rx Gabapentin 600 mg PO TID 11/16/23 05/31/24 History Ipratropium-Albuterol Nebulize 3 ml INHALATION RT-QID 11/16/23 05/31/24 History [Duoneb 0.5 mg-3 mg/3 ml Soln] Isosorbide Mononitrate ER [Imdur] 30 mg PO DAILY 11/25/23 05/31/24 History Fluticasone/Umeclidin/Vilanter 1 puff INHALATION RT-DAILY 12/06/23 05/31/24 History [Trelegy Ellipta 200-62.5-25] predniSONE 10 mg PO DAILY 12/06/23 05/31/24 History Apixaban [Eliquis] 2.5 mg PO BID 05/08/24 05/31/24 History Ipratropium-Albuterol Nebulize 3 ml INHALATION RT-QID PRN 05/08/24 05/31/24 History [Duoneb 0.5 mg-3 mg/3 ml Soln] hydrOXYzine HCL [Atarax] 25 mg PO TID PRN 05/08/24 05/31/24 History Thiamine [Vitamin B-1] 100 mg PO DAILY #30 tablet 05/13/24 05/31/24 Rx LORazepam [Ativan] 1 mg PO Q4H PRN 05/31/24 05/31/24 History MORPHINE ORAL TAYLER CONC 20mg/mL 5 mg PO Q1H PRN 05/31/24 05/31/24 History [Roxanol Oral Soln Conc 20MG/ML] Multivitamins, Thera [Multivitamin 1 tab PO DAILY 05/31/24 05/31/24 History (formulary)] Allergies Allergy/AdvReac Type Severity Reaction Status Date / Time No Known Allergies Allergy Verified 05/30/24 22:38 Physical Exam Vitals: Vital Signs Temp Pulse Resp BP Pulse Ox FiO2 05/31/24 08:14 101 H 18 122/80 97 05/31/24 07:47 106 H 16 05/31/24 07:36 103 H 16 30 05/31/24 04:46 30 05/31/24 04:00 108 H 15 99/79 97 05/31/24 02:35 30 05/31/24 02:00 104 H 18 103/75 100 05/31/24 00:23 110 H 20 05/31/24 00:16 111 H 20 05/30/24 23:53 110 H 18 134/80 97 05/30/24 22:32 98.1 F 113 H 22 154/94 98 Intake and Output 05/30/24 05/31/24 05/31/24 22:59 06:59 14:59 Other: Weight 63.503 kg General appearance: anxious, in distress Head exam: Present: atraumatic, normocephalic Eye exam: Present: normal appearance. Absent: scleral icterus, conjunctival injection ENT exam: Present: mucous membranes dry Neck exam: Present: normal inspection, full ROM Respiratory exam: Present: respiratory distress, wheezes, accessory muscle use, decreased breath sounds. Absent: rales, rhonchi, stridor Cardiovascular Exam: Present: normal rhythm, tachycardia, normal heart sounds. Absent: systolic murmur, diastolic murmur, rubs, gallop GI/Abdominal exam: Present: soft. Absent: distended, tenderness, guarding, rebound, rigid, mass Extremities exam: Present: normal inspection, normal capillary refill. Absent: pedal edema, calf tenderness Back exam: Present: normal inspection. Absent: CVA tenderness (R), CVA tenderness (L) Neurological exam: Present: alert Psychiatric exam: Present: anxious. Absent: depressed, suicidal ideation Skin exam: Present: warm, dry, intact, normal color. Absent: rash Results CBC & Chem 7: 05/30/24 23:12 05/31/24 14:59 Labs: Abnormal Lab Results - Last 24 Hours (Table) 05/30/24 05/30/24 05/30/24 Range/Units 23:12 23:12 23:12 RDW 15.9 H (11.5-15.5) % PT 9.6 L (10.0-12.5) sec VBG pH (7.31-7.41) VBG pCO2 (37-51) mmHg VBG HCO3 (24-28) mmol/L Sodium 117 L* (137-145) mmol/L Chloride 75 L (98-107) mmol/L Carbon Dioxide 36 H (22-30) mmol/L BUN <2 L (9-20) mg/dL Creatinine 0.41 L (0.66-1.25) mg/dL Glucose 101 H (74-99) mg/dL Plasma Lactic Acid Ned (0.7-2.0) mmol/L AST 68 H (17-59) U/L 05/30/24 05/30/24 05/31/24 Range/Units 23:12 23:29 06:52 RDW (11.5-15.5) % PT (10.0-12.5) sec VBG pH 7.30 L (7.31-7.41) VBG pCO2 76 H* 74 H* (37-51) mmHg VBG HCO3 38 H 39 H (24-28) mmol/L Sodium (137-145) mmol/L Chloride (98-107) mmol/L Carbon Dioxide (22-30) mmol/L BUN (9-20) mg/dL Creatinine (0.66-1.25) mg/dL Glucose (74-99) mg/dL Plasma Lactic Acid Ned 2.2 H* (0.7-2.0) mmol/L AST (17-59) U/L Assessment and Plan Assessment: Acute on chronic hypoxemic respiratory failure secondary to an acute exacerbation of chronic obstructive pulmonary disease Patient has been placed on IV Solu-Medrol 60 mg every 6 hours along with DuoNeb nebulizer treatments 4 times daily and as needed, Symbicort Empiric antibiotics in the form of doxycycline -Pulmonary consult in place Acute alcohol intoxication; blood alcohol level is markedly elevated; patient is already feeling anxious and tremulous -- CIWA protocol in place with IV Ativan; Librium as needed -Counseling done on need for cessation Acute anxiety secondary to above; IV Ativan ordered Obstructive sleep apnea; patient uses CPAP at home Chronic and ongoing tobacco dependence; counseling done on need for smoking cessation; will order nicotine patch Coronary artery disease with previous stent placements; continue with statins, beta-blockers, Imdur and Eliquis Peripheral vascular disease with femoral bypass; Eliquis and statins in place History of atrial fibrillation anticoagulated with Eliquis; patient is rate controlled on metoprolol 25 mg twice daily Hypertension; metoprolol 25 mg twice daily Hyperlipidemia; Lipitor 80 mg p.o. nightly DVT prophylaxis; SCD/Eliquis CODE STATUS; full code
[2024-05-31] MEDS: ONDANSETRON 4 MG/2 ML VIAL IVP PRN (17:50)
[2024-05-31] MEDS: ATORVASTATIN 80 MG TAB PO SCH (21:52)
[2024-06-01] MEDS: NICOTINE 21MG/24HR PATCH TRANSDERM SCH (08:15)
--- NOTE | 2024-06-01 12:57 | P.PN ---
Subjective This is a pleasant 63 years old male with past medical history of alcohol use disorder and COPD. He is on chronic hypoxic respiratory failure on 4 L oxygen at home. Presents because of worsening shortness of breath. Patient states that his significant dyspnea was of 1 day duration but he has been having coughing and brown phlegm for about a week he denies chest pain No other specific GI/ symptom. No headache dizziness weakness numbness He smokes 6 cigarettes/day as he explains and he was counseled to quit and he is not against that and currently he is with nicotine patch He drinks about 12 cans of beer every day of small size as he states. Last drink was yesterday morning before coming to the hospital No illicit drugs Patient has mild depression but denies suicidal or homicidal ideation. No hallucination Hemodynamic stable and afebrile Labs including CBC, LFT, INR were unremarkable Sodium was low at 117 on admission she was placed on IV fluid and improved to 123 No labs from today we ordered stat sodium Currently he is on normal saline 50 mL/h Also he is on Eliquis 2.5 mg and he was placed on doxycycline, CIWA protocol and thiamine and IV Solu-Medrol His pCO2 was elevated and pH was 7.33 D-dimer is negative at 0.31 Lactic acid was mildly elevated came back to reference range serum alcohol was 76 on admission Chest x-ray showing increased interstitial pulmonary markings with COPD Review of systems CONSTITUTIONAL: No fever, no malaise, no fatigue. HEENT: No recent visual problems or hearing problems. Denied any sore throat HEMATOLOGICAL: Denies any bleeding or petechiae. GENITOURINARY: Denies any burning micturition, frequency, or urgency. MUSCULOSKELETAL/RHEUMATOLOGICAL: Denies any joint pain, swelling, or any muscle pain. ENDOCRINE: Denies any polyuria or polydipsia. Active Medications Generic Name Dose Route Start Last Admin Trade Name Freq PRN Reason Stop Dose Admin Acetaminophen 650 mg 05/31/24 02:10 06/01/24 08:14 Acetaminophen Tab 325 Mg Tab PO 650 mg Q4HR PRN Administration Mild Pain or Fever > 100.5 Albuterol/Ipratropium 3 ml 05/31/24 08:00 06/01/24 12:55 Ipratropium-Albuterol 3 Ml Neb INHALATION 3 ml RT-QID PRIYANKA Administration Albuterol/Ipratropium 3 ml 05/31/24 02:10 Ipratropium-Albuterol 3 Ml Neb INHALATION RT-Q2H PRN Shortness Of Breath Or Wheezing Apixaban 2.5 mg 05/31/24 09:00 06/01/24 08:15 Apixaban 2.5 Mg Tablet PO 2.5 mg BID PRIYANKA Administration Protocol Atorvastatin Calcium 80 mg 05/31/24 21:00 05/31/24 21:52 Atorvastatin 80 Mg Tab PO 80 mg HS PRIYANKA Administration Budesonide 1 mg 06/01/24 20:00 Budesonide 1 Mg/2 Ml Nebu INHALATION RT-BID PRIYANKA Chlordiazepoxide HCl 50 mg 05/30/24 23:08 Chlordiazepoxide 25 Mg Cap PO Q4HR PRN Ciwa 6 To 7 Cholecalciferol 50 mcg 05/31/24 09:00 06/01/24 08:15 Cholecalciferol 25 Mcg (1000 Iu) Tablet PO 50 mcg DAILY PRIYANKA Administration Doxycycline Monohydrate 100 mg 05/31/24 09:00 06/01/24 08:14 Doxycycline 100 Mg Cap PO 100 mg BID PRIYANKA Administration Protocol Folic Acid 1 mg 05/31/24 09:00 06/01/24 08:15 Folic Acid 1 Mg Tab PO 1 mg DAILY PRIYANKA Administration Formoterol Fumarate 20 mcg 06/01/24 20:00 Formoterol Fumarate 20 Mcg/2 Ml Nebu INHALATION RT-BID PRIYANKA Gabapentin 600 mg 05/31/24 09:00 06/01/24 08:14 Gabapentin 300 Mg Cap PO 600 mg TID PRIYANKA Administration Hydroxyzine HCl 25 mg 05/31/24 09:00 Hydroxyzine Hcl 25 Mg Tab PO TID PRN Anxiety Isosorbide Mononitrate 30 mg 05/31/24 09:00 06/01/24 08:14 Isosorbide Mononitrate Er 30 Mg Tab.Er.24h PO 30 mg DAILY PRIYANKA Administration Lorazepam 2 mg 05/30/24 23:08 Lorazepam 2 Mg/Ml Inj IV 06/01/24 23:09 Q10M PRN CIWA 16 or higher Lorazepam 1 mg 05/30/24 23:08 05/31/24 12:24 Lorazepam 2 Mg/Ml Inj IV 1 mg Q2HR PRN Administration CIWA 8 or 9 Lorazepam 1 mg 05/30/24 23:08 05/31/24 16:24 Lorazepam 2 Mg/Ml Inj IV 1 mg Q1HR PRN Administration CIWA 10 to 15 Methylprednisolone Sodium Succinate 60 mg 05/31/24 06:00 06/01/24 12:53 Methylprednisolone Sod Succi 125 Mg/2 Ml Vial IV 60 mg Q6HR PRIYANKA Administration Metoprolol Tartrate 25 mg 05/31/24 09:00 06/01/24 08:14 Metoprolol Tartrate 25 Mg Tab PO 25 mg BID PRIYANKA Administration Naloxone HCl 0.2 mg 05/31/24 02:10 Naloxone 0.4 Mg/Ml 1 Ml Vial IVP Q2M PRN Opioid Reversal Nicotine 1 patch 06/01/24 09:00 06/01/24 08:15 Nicotine 21mg/24hr Patch TRANSDERM 1 patch DAILY PRIYANKA Administration Ondansetron HCl 4 mg 05/31/24 17:38 05/31/24 17:50 Ondansetron 4 Mg/2 Ml Vial IVP 4 mg Q6HR PRN Administration Nausea And Vomiting Pantoprazole Sodium 40 mg 05/31/24 09:00 06/01/24 08:14 Pantoprazole 40 Mg Tablet PO 40 mg DAILY PRIYANKA Administration Thiamine HCl 100 mg 05/31/24 11:15 06/01/24 08:15 Thiamine 100 Mg Tab PO 100 mg DAILY PRIYANKA Administration Objective - Vital Signs Vital signs: Vital Signs Temp 97.1 F L 06/01/24 07:39 Pulse 80 06/01/24 08:51 Resp 18 06/01/24 07:39 BP 144/80 06/01/24 07:39 Pulse Ox 96 06/01/24 08:39 FiO2 30 05/31/24 07:36 Intake & Output 05/31/24 06/01/24 06/01/24 18:59 06:59 18:59 Output Total 400 2800 Balance -400 -2800 Weight 63.503 kg 68.3 kg Output: Urine 400 2800 Other: Voiding Method Urinal Urinal # Voids 0 1 - Exam -GENERAL: The patient is alert and oriented x3, not in any acute distress. Well developed, well nourished. Generally weak with tremor of the both upper extremities and upper trunk HEENT: Pupils are round and equally reacting to light. EOMI. No scleral icterus. No conjunctival pallor. Normocephalic, atraumatic. No pharyngeal erythema. No thyromegaly. CARDIOVASCULAR: S1 and S2 present. No murmurs, rubs, or gallops. PULMONARY: Chest is clear to auscultation, no wheezing , no crackles. ABDOMEN: Soft, nontender, nondistended, normoactive bowel sounds. No palpable organomegaly. MUSCULOSKELETAL: No joint swelling or deformity. EXTREMITIES: No cyanosis, clubbing, or pedal edema. NEUROLOGICAL: Gross neurological examination did not reveal any focal deficits. SKIN: No rashes. no petechiae. - Labs CBC & Chem 7: 05/30/24 23:12 05/31/24 14:59 Labs: Abnormal Lab Results - Last 24 Hours (Table) 05/31/24 Range/Units 14:59 Sodium 123 L (137-145) mmol/L Chloride 85 L (98-107) mmol/L Carbon Dioxide 39 H (22-30) mmol/L BUN 6 L (9-20) mg/dL Creatinine 0.39 L (0.66-1.25) mg/dL Glucose 155 H (74-99) mg/dL Total Protein 6.2 L (6.3-8.2) g/dL Assessment and Plan Assessment: Acute COPD exacerbation Chronic hypoxic respiratory failure Hyponatremia could be related to his alcohol use and hypovolemia Alcohol use disorder and alcohol withdrawal at risk of delirium tremens Chronic atrial fibrillation on Eliquis Generalized weakness Plan: Monitor sodium closely Continue with fluid restriction Pulmonary team following Continue with IV Solu-Medrol and doxycycline Continue with CIWA protocol and thiamine Patient was counseled to quit smoking and alcohol and he is agreeable Labs and medication were reviewed.. Continue same treatment. Continue with symptomatic treatment. Resume home medication. Monitor labs and vitals. DVT and GI prophylaxis. Further recommendations as per clinical course of the patient DVT prophylaxis: Eliquis GI Prophylaxis: Protonix PT/OT: Pending Prognosis is guarded
--- NOTE | 2024-06-01 14:35 | P.PN ---
Subjective Progress Note Date: 06/01/24 This is a 63-year-old male patient with a known history of severe oxygen dependent chronic obstructive pulmonary disease, chronic and ongoing tobacco dependence, chronic daily alcohol use, sleep apnea utilizing CPAP, coronary artery disease with previous stent placement, peripheral vascular disease with p revious bypass, atrial fibrillation anticoagulated with Eliquis, hypertension, hyperlipidemia, marijuana use. He was recently discharged from here on May 13, 2024 following acute exacerbation of COPD. He came into the emergency room yesterday with worsening shortness of breath, anxiety, feeling like alcohol withdrawal symptoms. His EtOH level was 76. Chest x-ray revealed no acute findings. White count 10.1. Hemoglobin 14.2. Platelets 260. Sodium 117. Potassium 5.1. Bicarb 36. BUN less than 2. Creatinine 0.41. Glucose 101. AST 68. ALT 40. Troponin negative x 1. proBNP 148. He is seen today in consultation in the emergency department. He is currently sitting up on a stret ricky. On BiPAP 12/5 and 30% FiO2. He lung sounds remain quite diminished with bilateral wheezing. He is feeling a bit better today compared to yesterday. He is afebrile. Hemodynamically stable. The patient is seen today June 01, 2024 in follow-up on the regular medical floor. He is currently sitting up in bed. Awake and alert in no acute distress. Maintaining O2 saturations in the 90s on 4 L/min per nasal cannula. He has normal saline at 50 mL/h. He is continued on DuoNeb inhalations, Pulmicort and Perforomist inhalations, Solu-Medrol. Blood cultures pending. Sodium 125. He remains on empiric antibiotics in the form of doxycycline. Anticoagulated with Eliquis. Remains in the CIWA protocol. NicoDerm patch in place. Objective - Vital Signs Vital signs: Vital Signs Temp 97.1 F L 06/01/24 07:39 Pulse 84 06/01/24 13:10 Resp 18 06/01/24 07:39 BP 144/80 06/01/24 07:39 Pulse Ox 96 06/01/24 08:39 FiO2 30 05/31/24 07:36 Intake & Output 05/31/24 06/01/24 06/01/24 18:59 06:59 18:59 Output Total 400 2800 Balance -400 -2800 Weight 63.503 kg 68.3 kg Output: Urine 400 2800 Other: Voiding Method Urinal Urinal # Voids 0 1 - Exam GENERAL EXAM: Alert, thin, disheveled 63-year-old male, sitting up in bed, on 4 L nasal cannula, fairly comfortable in no acute distress. HEAD: Normocephalic. EYES: Normal reaction of pupils, equal size. NOSE: Clear with pink turbinates. THROAT: No erythema or exudates. NECK: No masses, no JVD. CHEST: No chest wall deformity. LUNGS: Equal air entry with bilateral wheezing, diminished. CVS: S1 and S2 normal with no audible murmur, regular rhythm. ABDOMEN: No hepatosplenomegaly, normal bowel sounds, no guarding or rigidity. SPINE: No scoliosis or deformity SKIN: No rashes CENTRAL NERVOUS SYSTEM: No focal deficits, tone is normal in all 4 extremities. EXTREMITIES: There is no peripheral edema. No clubbing, no cyanosis. Peripheral pulses are intact. - Labs CBC & Chem 7: 05/30/24 23:12 06/01/24 13:06 Labs: Abnormal Lab Results - Last 24 Hours (Table) 05/31/24 06/01/24 Range/Units 14:59 13:06 Sodium 123 L 125 L (137-145) mmol/L Chloride 85 L (98-107) mmol/L Carbon Dioxide 39 H (22-30) mmol/L BUN 6 L (9-20) mg/dL Creatinine 0.39 L (0.66-1.25) mg/dL Glucose 155 H (74-99) mg/dL Total Protein 6.2 L (6.3-8.2) g/dL Microbiology - Last 24 Hours (Table) 05/30/24 23:45 Blood Culture - Preliminary Blood Assessment and Plan Assessment: Acute on chronic hypoxemic respiratory failure secondary to an acute exacerbation of chronic obstructive pulmonary disease. Acute alcohol intoxication Acute anxiety secondary to above Hyponatremia suspect secondary to beer [place] Oxygen dependent COPD Obstructive sleep apnea utilizing CPAP Chronic and ongoing tobacco dependence Daily alcohol use, patient is on CIWA protocol Coronary artery disease with previous stent placements Peripheral vascular disease with femoral bypass History of atrial fibrillation anticoagulated with Eliquis Hypertension Hyperlipidemia Marijuana use Plan: The patient was seen and evaluated Labs and medications reviewed Currently on oxygen at 4 L/min per nasal cannula Continue DuoNeb inhalations Change Symbicort to Pulmicort and Perforomist inhalations Continue Solu-Medrol Empiric antibiotics in the form of doxycycline Anticoagulated with Eliquis Educated regarding smoking cessation Educated regarding alcohol cessation NicoDerm patch in place We will continue to follow I have personally seen and examined the patient, performed the documentation and the assessment and plan as written. Number of minutes spent on the visit: 10 Dictation was produced using [employer] dictation software. Please excuse any grammatical, word or spelling errors.
[2024-06-01] MEDS: FORMOTEROL FUMARATE 20 MCG/2 ML NEBU INHALATION SCH (21:14)
[2024-06-01] MEDS: BUDESONIDE 1 MG/2 ML NEBU INHALATION SCH (21:14)
[2024-06-02 08:52] LABS: Blood Urea Nitrogen 7.5 mg/dL (9.0-27.0); Calcium 8.9 mg/dL (8.7-10.3); Carbon Dioxide 30.7 mmol/L (21.6-31.8); Chloride 94 mmol/L (96-109); Glucose 144 mg/dL (70-110); Potassium 4.3 mmol/L (3.5-5.5); Sodium 134 mmol/L (135-145)
[2024-06-02 08:54] VITALS: BP 161/90; RESP 18; TEMP 98
[2024-06-02 09:08] LABS: Basophils # (A) 0.01 X 10*3/uL (0.00-0.10); Basophils % (A) 0.1 %; Eosinophils # (A) 0 X 10*3/uL (0.04-0.35); Eosinophils % (A) 0 %; Lymphocytes # (A) 0.36 X 10*3/uL (0.90-5.00); Lymphocytes % (A) 3.8 %; MCH 28.4 pg (27.0-32.0); MCHC 30.8 g/dL (32.0-37.0); MCV 92.4 FL (80.0-97.0); Mean Platelet Volume 9.9 FL (9.5-12.2); Monocytes # (A) 0.42 X 10*3/uL (0.20-1.00); Monocytes % (A) 4.4 %; NRBC Per 100 WBC 0 X 10*3/uL (0.00-0.01); Neutrophils # (A) 8.69 X 10*3/uL (1.80-7.70); Neutrophils % (A) 91.3 %; Platelet Count 227 X 10*3/uL (140-440); RBC 4.22 X 10*6/uL (4.40-5.60); RDW 17.1 % (11.5-14.5); WBC 9.52 X 10*3/uL (4.50-10.00)
[2024-06-02 12:05] VITALS: PULSE 82
--- NOTE | 2024-06-02 14:55 | P.PN ---
Subjective Progress Note Date: 06/02/24 This is a 63-year-old male patient with a known history of severe oxygen dependent chronic obstructive pulmonary disease, chronic and ongoing tobacco dependence, chronic daily alcohol use, sleep apnea utilizing CPAP, coronary artery disease with previous stent placement, peripheral vascular disease with p revious bypass, atrial fibrillation anticoagulated with Eliquis, hypertension, hyperlipidemia, marijuana use. He was recently discharged from here on May 13, 2024 following acute exacerbation of COPD. He came into the emergency room yesterday with worsening shortness of breath, anxiety, feeling like alcohol withdrawal symptoms. His EtOH level was 76. Chest x-ray revealed no acute findings. White count 10.1. Hemoglobin 14.2. Platelets 260. Sodium 117. Potassium 5.1. Bicarb 36. BUN less than 2. Creatinine 0.41. Glucose 101. AST 68. ALT 40. Troponin negative x 1. proBNP 148. He is seen today in consultation in the emergency department. He is currently sitting up on a stret ricky. On BiPAP 12/5 and 30% FiO2. He lung sounds remain quite diminished with bilateral wheezing. He is feeling a bit better today compared to yesterday. He is afebrile. Hemodynamically stable. The patient is seen today June 01, 2024 in follow-up on the regular medical floor. He is currently sitting up in bed. Awake and alert in no acute distress. Maintaining O2 saturations in the 90s on 4 L/min per nasal cannula. He has normal saline at 50 mL/h. He is continued on DuoNeb inhalations, Pulmicort and Perforomist inhalations, Solu-Medrol. Blood cultures pending. Sodium 125. He remains on empiric antibiotics in the form of doxycycline. Anticoagulated with Eliquis. Remains in the CIWA protocol. NicoDerm patch in place. The patient is seen today June 02, 2024 in follow-up on the regular medical floor. He is awake and alert in no acute distress. Continues to improve daily. No worsening shortness of breath, cough or congestion. He did utilize BiPAP for about 5 hours last night 12/5 and 30% FiO2. He is currently on oxygen at 4 L/min per nasal cannula. He is receiving normal saline at 50 mL/h. He is continued on DuoNeb inhalations, Pulmicort and Perforomist inhalations, Solu- Medrol. Blood cultures pending. He remains on empiric antibiotics in the form of doxycycline. Anticoagulated with Eliquis. Remains in the CIWA protocol. NicoDerm patch in place. White count 9.5. Hemoglobin 12.0. Platelets 227. Sodium 134. Potassium 4.3. Bicarb 31. BUN 8. Creatinine 0.5. Glucose 144. Objective - Vital Signs Vital signs: Vital Signs Temp 98.0 F 06/02/24 07:40 Pulse 82 06/02/24 12:04 Resp 18 06/02/24 07:40 BP 161/90 06/02/24 07:40 Pulse Ox 96 06/02/24 08:46 FiO2 30 06/01/24 22:38 Intake & Output 06/01/24 06/02/24 06/02/24 18:59 06:59 18:59 Intake Total 720 Output Total 1650 800 Balance -930 -800 Weight 69.5 kg Intake: Oral 720 Output: Urine 1650 800 Other: Voiding Method Urinal Urinal Urinal # Voids 1 3 1 # Bowel Movements 1 1 - Exam GENERAL EXAM: Alert, thin, 63-year-old male, on 4 L nasal cannula, comfortable in no acute distress. HEAD: Normocephalic. EYES: Normal reaction of pupils, equal size. NOSE: Clear with pink turbinates. THROAT: No erythema or exudates. NECK: No masses, no JVD. CHEST: No chest wall deformity. LUNGS: Equal air entry with bilateral wheezing, diminished. CVS: S1 and S2 normal with no audible murmur, regular rhythm. ABDOMEN: No hepatosplenomegaly, normal bowel sounds, no guarding or rigidity. SPINE: No scoliosis or deformity SKIN: No rashes CENTRAL NERVOUS SYSTEM: No focal deficits, tone is normal in all 4 extremities. EXTREMITIES: There is no peripheral edema. No clubbing, no cyanosis. Peripheral pulses are intact. - Labs CBC & Chem 7: 06/02/24 03:43 06/02/24 03:43 Labs: Abnormal Lab Results - Last 24 Hours (Table) 06/02/24 06/02/24 Range/Units 03:43 03:43 RBC 4.22 L (4.40-5.60) X 10*6/uL Hgb 12.0 L (13.0-17.0) g/dL Hct 39.0 L (39.6-50.0) % MCHC 30.8 L (32.0-37.0) g/dL RDW 17.1 H (11.5-14.5) % Neutrophils # 8.69 H (1.80-7.70) X 10*3/uL Lymphocytes # 0.36 L (0.90-5.00) X 10*3/uL Eosinophils # 0 L (0.04-0.35) X 10*3/uL Sodium 134 L (135-145) mmol/L Chloride 94 L (96-109) mmol/L BUN 7.5 L (9.0-27.0) mg/dL Creatinine 0.5 L (0.6-1.5) mg/dL Glucose 144 H (70-110) mg/dL Microbiology - Last 24 Hours (Table) 05/30/24 23:45 Blood Culture - Preliminary Blood Assessment and Plan Assessment: Acute on chronic hypoxemic respiratory failure secondary to an acute exacerbation of chronic obstructive pulmonary disease Acute alcohol intoxication Acute anxiety secondary to above Hyponatremia suspect secondary to beer [place] Oxygen dependent COPD Obstructive sleep apnea utilizing CPAP Chronic and ongoing tobacco dependence Daily alcohol use, patient is on CIWA protocol Coronary artery disease with previous stent placements Peripheral vascular disease with femoral bypass History of atrial fibrillation anticoagulated with Eliquis Hypertension Hyperlipidemia Marijuana use Plan: The patient was seen and evaluated Labs and medications reviewed Currently on oxygen at 4 L/min per nasal cannula Cleared for discharge Continue his home pulmonary medications Continue home oxygen, CPAP Complete a prednisone taper Completed a course of doxycycline Educated regarding smoking cessation Continue with NicoDerm patch Follow-up in our office in 1 week I have personally seen and examined the patient, performed the documentation and the assessment and plan as written. Number of minutes spent on the visit: 10 Dictation was produced using [employer] dictation software. Please excuse any grammatical, word or spelling errors.
--- NOTE | 2024-06-02 21:33 | P.DS ---
Providers Date of admission: 05/31/24 02:10 Attending physician: Og English Consults: 05/31/24 02:10 Consult Physician Routine Consulting Provider: Jass Nelson Consult Reason/Comments: COPD Exacerbation Do you want consulting provider notified?: Yes Primary care physician: Ashlyn [facility] Course: Acute COPD exacerbation Chronic hypoxic respiratory failure Hyponatremia could be related to his alcohol use and hypovolemia Alcohol use disorder and alcohol withdrawal at risk of delirium tremens Chronic atrial fibrillation on Eliquis Generalized weakness Patient was on hospice care at home hospital course: This is a pleasant 63 years old male with past medical history of alcohol use disorder and COPD. He is on chronic hypoxic respiratory failure on 4 L oxygen at home. Presents because of worsening shortness of breath. Patient states that his significant dyspnea was of 1 day duration but he has been having coughing and brown phlegm for about a week he denies chest pain. Patient was found to have acute COPD exacerbation and he was treated with IV steroids and doxycycline and bronchodilator. Pulmonary team are following closely and patient showed interval improvement and on the day of discharge his dyspnea significantly better, no significant comfort and he agrees to go home. He is back to 4 L/min via nasal cannula which is his home dose. Sodium was low on admission down to 117, he was treated with IV fluids gently sodium went up and today was 134. Patient remains asymptomatic. Normal saline stopped. Patient counseled and he became clinically clear for discharge as well. Regarding this problem Patient also was with alcohol withdrawal.. Work CIWA protocol. Today he does not need any more Ativan. CIWA score was low persistently. Patient was counseled to quit drinking alcohol and he agrees on the top of that he told me he has Ativan as needed at home. Patient denies depression or suicidal ideation. Patient also with chronic A-fib and he told me he has Eliquis at home. Patient states that he was under hospice care at home before he come to the hospital and he intends to go back to hospice care. Other than that patient denies any other issues and he agrees to go home today Patient was cleared for discharge by pulmonary service Problems and management plan were discussed with the patient and he verbalized understanding and acceptance Patient was found stable and can be discharged home in guarded prognosis however he needs follow-up as an outpatient. Patient was instructed to follow up with PCP within one week and patient agrees Showing preserved ejection fraction patient will be discharged on tapered steroids nicotine patch and doxycycline with recommendation for follow-up with his PCP in 1 week after discharge and he agrees 50 to 55% Physical exam Gen: patient is a AAOx3, no distress CVS: S1-S2, RRR, no murmur Lungs: B/L CTA, no wheezing Abdomen: soft, no distention, no tenderness, positive bowel sounds Extremity: no leg edema or induration Time spent more than 35 minutes Patient Condition at Discharge: Fair Plan - Discharge Summary Discharge Rx Participant: No New Discharge Prescriptions: New Nicotine 21Mg/24Hr Patch [Habitrol] 1 patch TRANSDERM DAILY #7 patch predniSONE 10 mg PO DIRECTED #40 tab Doxycycline [Vibramycin] 100 mg PO BID 3 Days #6 cap Continue Metoprolol Tartrate 25 mg PO BID Atorvastatin Calcium [Lipitor] 80 mg PO HS Ipratropium-Albuterol Nebulize [Duoneb 0.5 mg-3 mg/3 ml Soln] 3 ml INHALATION RT-QID Fluticasone/Umeclidin/Vilanter [Trelegy Ellipta 200-62.5-25] 1 puff INHALATION RT-DAILY predniSONE 10 mg PO DAILY Apixaban [Eliquis] 2.5 mg PO BID Thiamine [Vitamin B-1] 100 mg PO DAILY #30 tablet LORazepam [Ativan] 1 mg PO Q4H PRN PRN Reason: Anxiety/Restlessness Pantoprazole Sodium 20 mg PO DAILY Cholecalciferol [Vitamin D3 (25 Mcg = 1000 Iu)] 50 mcg PO DAILY Folic Acid 1 mg PO DAILY tab Gabapentin 600 mg PO TID Isosorbide Mononitrate ER [Imdur] 30 mg PO DAILY Ipratropium-Albuterol Nebulize [Duoneb 0.5 mg-3 mg/3 ml Soln] 3 ml INHALATION RT-QID PRN PRN Reason: shortness of breath hydrOXYzine HCL [Atarax] 25 mg PO TID PRN PRN Reason: Anxiety MORPHINE ORAL TAYLER CONC 20mg/mL [Roxanol Oral Soln Conc 20MG/ML] 5 mg PO Q1H PRN PRN Reason: Pain/Shortness of breath Multivitamins, Thera [Multivitamin (formulary)] 1 tab PO DAILY Discharge Medication List Metoprolol Tartrate 25 mg PO BID 07/27/15 [History] Pantoprazole Sodium 20 mg PO DAILY 12/15/21 [History] Atorvastatin Calcium [Lipitor] 80 mg PO HS 06/11/23 [History] Cholecalciferol [Vitamin D3 (25 Mcg = 1000 Iu)] 50 mcg PO DAILY 06/11/23 [History] Folic Acid 1 mg PO DAILY tab 10/11/23 [Rx] Gabapentin 600 mg PO TID 11/16/23 [History] Ipratropium-Albuterol Nebulize [Duoneb 0.5 mg-3 mg/3 ml Soln] 3 ml INHALATION RT-QID 11/16/23 [History] Isosorbide Mononitrate ER [Imdur] 30 mg PO DAILY 11/25/23 [History] Fluticasone/Umeclidin/Vilanter [Trelegy Ellipta 200-62.5-25] 1 puff INHALATION RT-DAILY 12/06/23 [History] predniSONE 10 mg PO DAILY 12/06/23 [History] Apixaban [Eliquis] 2.5 mg PO BID 05/08/24 [History] Ipratropium-Albuterol Nebulize [Duoneb 0.5 mg-3 mg/3 ml Soln] 3 ml INHALATION RT-QID PRN 05/08/24 [History] hydrOXYzine HCL [Atarax] 25 mg PO TID PRN 05/08/24 [History] Thiamine [Vitamin B-1] 100 mg PO DAILY #30 tablet 05/13/24 [Rx] LORazepam [Ativan] 1 mg PO Q4H PRN 05/31/24 [History] MORPHINE ORAL TAYLER CONC 20mg/mL [Roxanol Oral Soln Conc 20MG/ML] 5 mg PO Q1H PRN 05/31/24 [History] Multivitamins, Thera [Multivitamin (formulary)] 1 tab PO DAILY 05/31/24 [History] Doxycycline [Vibramycin] 100 mg PO BID 3 Days #6 cap 06/02/24 [Rx] Nicotine 21Mg/24Hr Patch [Habitrol] 1 patch TRANSDERM DAILY #7 patch 06/02/24 [Rx] predniSONE 10 mg PO DIRECTED #40 tab 06/02/24 [Rx] Follow up Appointment(s)/Referral(s): Ashlyn Toro MD [Primary Care Provider] - 1-2 days (Office not answeringat this time. Please call office to make an appt.) [facility] [[facility]STAFF] - As Needed Jass Nelson MD [STAFF PHYSICIAN] - 06/15/24 10:30 am Activity/Diet/Wound Care/Special Instructions: Regular diet Activity is restricted till you see your doctor Discharge/Stand Alone Forms: AA Meetings [place], Outpatient Counseling, Inp Substance Abuse Facilities Discharge Disposition: HOME WITH HOME HEALTH SERVICES
== END 2024-06-02 14:35 | disposition home health service (06) | DRG 189 ==
LOC: EC 22:31 → 3SCARD 05-31 02:10 → 4SSUR 05-31 12:18
PROVIDERS: ADMIT Hospitalist; ATTEND Hospitalist
PROC: 5A09357 Assistance with Respiratory Ventilation, Less than 24 Consecutive Hours, Continuous Positive Airway Pressure (ICD-10-PCS; principal; 2024-05-31)
DX: J96.21 Acute and chronic respiratory failure with hypoxia (principal); E87.1 Hypo-osmolality and hyponatremia; Z51.5 Encounter for palliative care; J44.1 Chronic obstructive pulmonary disease with (acute) exacerbation; I48.20 Chronic atrial fibrillation, unspecified; E86.1 Hypovolemia; Z99.81 Dependence on supplemental oxygen; E78.5 Hyperlipidemia, unspecified; I73.9 Peripheral vascular disease, unspecified; F10.129 Alcohol abuse with intoxication, unspecified; I10 Essential (primary) hypertension; F10.139 Alcohol abuse with withdrawal, unspecified; K21.9 Gastro-esophageal reflux disease without esophagitis; I25.10 Atherosclerotic heart disease of native coronary artery without angina pectoris; Y90.3 Blood alcohol level of 60-79 mg/100 ml; F06.4 Anxiety disorder due to known physiological condition; F17.200 Nicotine dependence, unspecified, uncomplicated; G47.33 Obstructive sleep apnea (adult) (pediatric); Z71.6 Tobacco abuse counseling; Z79.01 Long term (current) use of anticoagulants; Z79.899 Other long term (current) drug therapy; Z95.5 Presence of coronary angioplasty implant and graft; Z71.41 Alcohol abuse counseling and surveillance of alcoholic; Z28.310 Unvaccinated for COVID-19; Z28.21 Immunization not carried out because of patient refusal; Z89.432 Acquired absence of left foot; Z91.81 History of falling; Z86.14 Personal history of Methicillin resistant Staphylococcus aureus infection; Z98.1 Arthrodesis status; Z79.52 Long term (current) use of systemic steroids
CPT/HCPCS: 36415; 71045; 80048; 80053; 80320; 82803; 83605; 83880; 84295; 84484; 85025; 85379; 85610; 85730; 87040; 93005; 94640; 94660; 94760; 96361; 96374; 96375; 96376; 99291